=== PATIENT | female | born 1945 | race Caucasian/White ===

== ENCOUNTER → 2016-06-15 | Outpatient (CLI) | payer MEDICARE ==
--- NOTE | 2016-06-15 17:21 | Diagnostic Imaging Report ---
EXAMINATION: PET-CT TECHNIQUE: Serum glucose level at the time of the study is: 107 mg/dL. 12.4 mCi of FDG was administered intravenously followed by obtaining PET images with corresponding noncontrast CT scan images. The CT scan was performed for anatomic correlation and attenuation correction and was not performed according to the diagnostic protocol of the areas covered. The scan was performed from the head to mid thighs. INDICATION: Initial staging for colon cancer. FINDINGS: There is symmetric uptake seen in the brain. In the neck, there is an enlarged heterogenous thyroid gland with retrosternal extension with no significant hypermetabolism suggestive of multinodular goiter. No hypermetabolic mass is seen in the chest. Expected urinary tract excretion is seen. There is slight heterogeneity of uptake in the liver with no focal hypermetabolic mass identified. There is focal area of hypermetabolism projecting over small bowel loops in the central abdomen with no definitive correlating lesion. There is also a significant area of hypermetabolism in the right lower quadrant projecting over the cecum with maximum SUV of 9.3. No convincing mass is visible on the correlating localizer CT however correlation with colonoscopy is recommended. CT scan findings are suggestive of sigmoid resection with anastomosis seen. Small amount of free fluid in the pelvis noted. No osseous hypermetabolic masses identified. IMPRESSION: 1. There is prominent hypermetabolism in the cecum with no convincing CT correlate to suggest a mass. This is favored to be physiologic, although a small mucosal synchronous carcinoma cannot be entirely excluded. Correlate with colonoscopy results. 2. No evidence of liver or other distant metastasis. Dictated by: Dictated on workstation # [id number]
== END ==
LOC: RAD 09:24
PROVIDERS: ATTEND Internal Medicine Hematology & Oncology
DX: C18.7 Malignant neoplasm of sigmoid colon (principal)

== ENCOUNTER 2016-06-17 13:27 | Outpatient (CLI) | payer MEDICARE ==
[~2016-06-17] VITALS: Ht 172.7 cm; Wt 73.0 kg
== END 2016-06-17 14:21 ==
LOC: PREOP 13:27
PROVIDERS: ATTEND Surgery
DX: Z01.818 Encounter for other preprocedural examination (principal); C18.9 Malignant neoplasm of colon, unspecified

== ENCOUNTER 2016-06-24 08:57 | Day surgery (SDC) | payer MEDICARE ==
[~2016-06-24] VITALS: Ht 172.7 cm; Wt 73.0 kg
[2016-06-24] MEDS ORDERED: LIDOCAINE PF 2% 10 ML (XYLOCAINE) AMP ONE (09:17)
[2016-06-24] MEDS ORDERED: proPOfol 200 MG/20 ML (DIPRIVAN) VIAL IV ONE (09:17)
[2016-06-24] MEDS ORDERED: LACTATED RINGERS 1,000 ML IV ONE (09:17)
[2016-06-24] MEDS ORDERED: ONDANSETRON 4 MG/2 ML (SDV) Z0FRAN ONE (09:17)
[2016-06-24] MEDS ORDERED: LIDOCAINE JELLY 2% (XYLOCAINE) 5 ML TUBE ONE (09:17)
[2016-06-24] MEDS ORDERED: DEXAMETHASONE PF 10 MG/ML (DECADRON) VIAL ONE (09:17)
[2016-06-24] MEDS ORDERED: MIDAZOLAM 2 MG/2 ML (VERSED) VIAL ONE (09:18)
[2016-06-24] MEDS ORDERED: fentaNYL INJECTION 100 MCG/2 ML AMP ONE (09:18)
[2016-06-24] MEDS ORDERED: ceFAZolin 1 GM/NS 50 ML IVPB IV ONE ×2 (09:30)
[2016-06-24] MEDS ORDERED: HEParin (CENTRAL IV FLUSH) 500 UNIT/5 ML SYR ONE (09:48)
[2016-06-24] MEDS ORDERED: LIDOCAINE 1% INJ 20 ML (XYLOCAINE) VIAL ONE (09:49)
[2016-06-24] MEDS ORDERED: BUPIVACAINE 0.25% 30 ML (SENSORCAINE) VIAL ONE (09:49)
[2016-06-24] MEDS ORDERED: 0.9% SODIUM CHLORIDE PF INJ 20 ML VIAL ONE (09:49)
[2016-06-24 10:04] VITALS: BP 146/76
--- NOTE | 2016-06-24 10:05 | Progress Note-Pre Operative ---
Pre-Operative Progress Note H&P Reviewed The H&P was reviewed, patient examined and no changes noted. Date H&P Reviewed: Jun 24, 2016 Time H&P Reviewed: 10:05 Pre-Operative Diagnosis: colon cancer MARICHUY GILL DO Jun 24, 2016 10:05 am
--- NOTE | 2016-06-24 10:49 | Progress Note-Post Operative ---
Post-Operative Progess Note Surgeon (s)/Sales And Operations Trainee (s) Surgeon MARICHUY GILL DO Sales And Operations Trainee: 0 Pre-Operative Diagnosis colon cancer Post-Operative Diagnosis same Post-Op Procedure Note Date of Procedure: Jun 24, 2016 Name of Procedure Performed: power por placement right IJ using u/s guidance Description of the Procedure: see note Findings of the Procedure see note Anesthesia Type general Estimated blood loss (mL): minimal Specimen(s) collected/removed 0 MARICHUY GILL DO Jun 24, 2016 10:49 am
--- NOTE | 2016-06-24 10:51 | Discharge Inst-Simple/Standard ---
Discharge Inst-Standard Patient Instructions/Follow Up Plan of Care/Instructions/FU: 2 weeks Harvey Activity as Tolerated: No Discharge Diet: Regular Diet Other Inst to Patient Follow up Appt: Make appointment for 2 week. Instructions: No lifting greater than 10 pounds. No strenuous activity. May shower in 24 hours, no tub bath or soaking. Use incentive spirometer at home as directed. No Smoking Skin/Wound Care: May remove bandages in 48 hours. You have special glue over incisions it will fall off on its own Place ice pack on for 15 min off 30 min and repeat to reduce swelling and discomfort. Symptoms to Report: Appetite Changes, Extremity Discoloration, Numbness/Tingling, Swelling Increased , Bleeding Excessive, Eyesight Changes, Pain Increased, Urine Color Change, Constipation(Persistent), Fever over 101 degree F, Pain/Pressure in chest, Urinating Difficulty, Cough Up/Vomit Blood, Heart Beat Irreg/Pounding, Pain/ Pressure in jaw, Vaginal Bleeding Increase, Cramps in feet or legs, Lightheadedness, Pain/Pressure in shoulder, Diarrhea(Persistent), Memory Changes Suddenly, Questions/Concerns, Weight gain consecutive days, Dizziness/ Fainting, Nausea/Vomiting, Shortness of Breath, Weight gain over 2 pounds If questions or concerns contact your physician Or seek help at emergency department. MARICHUY GILL DO Jun 24, 2016 10:51 am
[2016-06-24] MEDS ORDERED: MEPERIDINE (DEMEROL) INJ 50 MG/ML IVP PRN (11:15)
[2016-06-24] MEDS ORDERED: morphine INJ 10 MG/ML 1ML (SYR OR VIAL) IVP PRN (11:15)
[2016-06-24] MEDS ORDERED: ONDANSETRON 4 MG/2 ML (SDV) Z0FRAN IVP PRN (11:15)
--- NOTE | 2016-06-24 11:16 | Diagnostic Imaging Report ---
Portable upright radiograph of the chest. INDICATION: Postop placement. FINDINGS: Right internal jugular port is placed with the tip at the mid SVC level. There is no pneumothorax. Minimal atelectasis in the lung bases seen. The heart size is slightly enlarged. No effusion or pneumothorax. Mediastinum and velia appear unremarkable. IMPRESSION: Cardiomegaly. Minimal bibasilar atelectasis. Dictated by: Dictated on workstation # [id number]
[2016-06-24 11:50] VITALS: BP 131/61
[2016-06-24 12:30] VITALS: BP 140/71
[2016-06-24 12:50] VITALS: BP 142/69
[2016-06-24 13:00] VITALS: BP 142/69
--- NOTE | 2016-06-24 14:10 | OPERATIVE REPORT ---
PROCEDURE PHYSICIAN: MARICHUY GILL DATE OF PROCEDURE: 06/24/2016 PREOPERATIVE DIAGNOSIS: Colon cancer. POSTOPERATIVE DIAGNOSIS: Colon cancer. PROCEDURE: Power port placement, right internal jugular vein using ultrasound guidance. SURGEON: Harvey. ANESTHESIA: General. ESTIMATED BLOOD LOSS: Minimal. COMPLICATIONS: None. INDICATIONS: The patient is a 70-year-old female recently diagnosed with colon cancer, she has undergone surgical intervention. She needs port placed for chemotherapy. She understands the risks and benefits of procedure and wished to proceed with procedure. Consent was signed on the chart. PROCEDURE: The patient was taken to the operating suite. She was prepped and draped in sterile fashion. A surgical pause was performed. Using ultrasound, the right internal jugular vein was located and using a micro- access kit, the right internal jugular vein was accessed. Dark nonpulsatile blood was withdrawn. The micro- access wire was inserted. The needle was then removed. Fluoroscopy assure proper placement. This was then converted to the normal guidewire by dilating with micro- access dilator. The wire was removed and the normal wire was inserted. Fluoroscopy assured proper placement. The wire was then secured. A local anesthetic was infiltrated in the right neck for tunneling all the way down to the right chest where a pocket was then created. A 15 blade scalpel was used to make a skin incision over the right chest. Cautery was used to dissect down to the pectoral fascia and a pocket was created bluntly. A dilator sheath was then advanced over the wire under fluoroscopy and the dilator and wire were removed. The Groshong catheter was inserted through the sheath and the sheath was then removed. The Groshong wire was removed. The cath was attached to the tunneler and then tunneled to the right chest. The fluoroscopy assured proper length and the catheter was cut to length and secured to the port which was then placed within the pocket. The port was then accessed without difficulty. It withdrew without difficulty and flushed with saline and then heparin without difficulty. The subcutaneous tissues were then reapproximated using 3-0 Vicryl. The skin at the insertion site and of the incision site were then washed and dried and Dermabond was placed over the incision. The Dermabond was dried and sterile bandages applied. The patient tolerated the procedure well without complications and taken to the recovery condition. Chest x-ray is pending. Job ID: [id number] Dictated Date: 06/24/2016 10:55:27 Contracts Manager Date: 06/24/2016 14:02:11 / soo
[2016-06-24] MEDS ORDERED: LACTATED RINGERS 1,000 ML IV PRN (16:26)
--- NOTE | 2016-06-24 18:10 | Diagnostic Imaging Report ---
EXAMINATION: Intraoperative view of the chest. INDICATION: Port placement. FLUOROSCOPY TIME: 18 seconds. IMPRESSION: Provided image demonstrates a right IJ port in place with the tip at the SVC level. Dictated by: Dictated on workstation # [id number]
--- OUTSIDE RECORDS SUMMARY | 2016-07-25 20:55 | XMS REPORT ---
Author Author Raghav Alves [facility] Surgery Address Unknown Phone Unavailable Care Team Providers Care Loom Technician Name Role Phone Raghav Alves Unavailable Unavailable PROBLEMS Unknown Problems ALLERGIES Unknown Allergies SOCIAL HISTORY No smoking Hx information available PLAN OF CARE VITAL SIGNS MEDICATIONS Unknown Medications RESULTS No Results PROCEDURES No Known procedures IMMUNIZATIONS No Known Immunizations
--- OUTSIDE RECORDS SUMMARY | 2016-07-25 20:56 | XMS REPORT | Continuity of Care Document ---
Author Author [facility] Address Unknown Phone Unavailable Allergies Active Description Code Type Severity Reaction Onset Reported/Identified Relationship to Patient Clinical Status Yes No Known Allergies No Known Allergies Drug Allergy Unknown N/A 05/13/2016 Medications Problems Date Dx Coded Attending Type Code Diagnosis Diagnosed By 04/26/2012 382.00 OTITIS MEDIA ACUTE SUPPURATIVE LEFT EAR 04/26/2012 MARIA ESTHER HESS DO 382.00 OTITIS MEDIA ACUTE SUPPURATIVE LEFT EAR 07/02/2014 MARIA ESTHER HESS DO 465.9 UPPER RESPIRATORY INFECTION 05/13/2016 Fawad GRIMES, Jemal Reynolds C18.7 MALIGNANT NEOPLASM OF SIGMOID COLON 05/13/2016 Jemal Celestin MD D50.0 IRON DEFICIENCY ANEMIA SECONDARY TO BLOOD LOSS (CH 05/13/2016 Jemal Celestin MD K56.69 OTHER INTESTINAL OBSTRUCTION 05/13/2016 Jemal Celestin MD R10.9 UNSPECIFIED ABDOMINAL PAIN Procedures Code Description Performed By Performed On [id number] DILATION OF SIGMOID COLON WITH INTRALUMINAL DEVICE Kalin GRIMES, Irineo Hui 05/13/2016 [id number] EXCISION OF SIGMOID COLON, ENDO, DIAGN Irineo Gagnon MD 05/13/2016 [id number] RESECTION OF SIGMOID COLON, PERCUTANEOUS ENDOSCOPI 05/13/2016 Results Test Result Range CBC W/DIFF - 05/13/16 03:20 EOSINOPHIL # 0.1 k/cumm 0.1-0.5 EOSINOPHIL % 1 % 2-4 GRANULOCYTE # 8.5 k/cumm 2.0-9.0 GRANULOCYTE % 84 % 50-75 LYMPHOCYTE # 0.9 k/cumm 1.0-4.0 LYMPHOCYTE % 9 % 20-30 MEAN CELL HGB 21.5 pg 27.0-33.0 MEAN CELL HGB CONCENTRATION 29.2 g/dL 32.0-37.0 MEAN CELL VOLUME 73.5 fl 80.0-100.0 MONOCYTE # 0.7 k/cumm 0.1-1.0 MONOCYTE % 7 % 4-6 RED BLOOD CELL 4.19 m/cumm 4.00-6.00 RED CELL DISTRIBUTION WIDTH 17.8 % 11.0- 15.6 WHITE BLOOD CELL 10.1 k/cumm 5.0-10.0 HEMOGLOBIN 9.0 gm/dL 12.0-16.0 HEMATOCRIT 30.8 % 37.0-47.0 PLATELET COUNT 340 k/cumm 150-400 CHEM/HEM PROFILE-BEDSIDE - 05/13/16 03:20 POTASSIUM 3.6 mmol/L 3.5-5.3 METHOD Bedside ANION GAP 10 mmol/L 10-20 METHOD Bedside GLUCOSE 141 mg/dL 70-99 BLOOD UREA NITROGEN 13 mg/dL 7-20 CREATININE 0.8 mg/dL 0.6-1.0 HEMOGLOBIN 9.5 gm/dL 12.0-16.0 HEMATOCRIT 28.0 % 37.0-47.0 SODIUM 139 mmol/L 135-148 CHLORIDE 112 mmol/L 98-110 CARBON DIOXIDE 21 mmol/L 21-32 CALCIUM IONIZED 4.7 mg/dL 4.5-5.3 HEPATIC FUNCTION PANEL - 05/13/16 03:20 BILI UNCONJUGATED 0.2 mg/dL 0.0-0.7 AST/SGOT 15 Units/L 10-37 ALT/SGPT 16 Units/L < 66 TOTAL PROTEIN 6.8 gm/dL 6.4-8.2 ALBUMIN 3.3 gm/dL 3.4-5.0 BILI TOTAL 0.3 mg/dL 0.0-1.0 ALKALINE PHOSPHATASE TOTAL 80 IU/L 45- 117 BILI CONJUGATED 0.1 mg/dL 0.0-0.3 LIPASE - 05/13/16 03:20 LIPASE 125 Units/L 73-393 AG CARCINOEMBRYONIC - 05/13/16 07:11 AG CARCINOEMBRYONIC 1.0 ng/mL < 2.6 RENAL FUNCTION PANEL - 05/14/16 09:34 POTASSIUM 3.8 mmol/L 3.5-5.3 EST GFR (MDRD) > 60 mL/min > 59 ANION GAP 7 mmol/L 5-15 GLUCOSE 115 mg/dL 70-99 CALCIUM 8.2 mg/dL 8.5-10.1 BLOOD UREA NITROGEN 9 mg/dL 7-20 CREATININE 0.7 mg/dL 0.6-1.0 SODIUM 148 mmol/L 135-148 CHLORIDE 113 mmol/L 98-110 CARBON DIOXIDE 28 mmol/L 21-32 ALBUMIN 2.7 gm/dL 3.4-5.0 PHOSPHORUS 2.3 mg/dL 2.5-4.9 MAGNESIUM - 05/14/16 09:34 MAGNESIUM 2.0 mg/dL 1.8-2.4 CBC - 05/14/16 09:34 COMMENT REVIEWED MEAN CELL HGB 21.6 pg 27.0-33.0 MEAN CELL HGB CONCENTRATION 28.7 g/dL 32.0-37.0 MEAN CELL VOLUME 75.2 fl 80.0-100.0 RED BLOOD CELL 3.47 m/cumm 4.00-6.00 RED CELL DISTRIBUTION WIDTH 17.8 % 11.0- 15.6 WHITE BLOOD CELL 6.3 k/cumm 5.0-10.0 HEMOGLOBIN 7.5 gm/dL 12.0-16.0 HEMATOCRIT 26.1 % 37.0-47.0 PLATELET COUNT 217 k/cumm 150-400 GLUCOSE (POC) - 05/16/16 21:08 GLUCOSE (POC) 85 mg/dL 70-99 CBC - 05/17/16 04:48 MEAN CELL HGB 21.7 pg 27.0-33.0 MEAN CELL HGB CONCENTRATION 29.8 g/dL 32.0-37.0 MEAN CELL VOLUME 72.8 fl 80.0-100.0 RED BLOOD CELL 3.60 m/cumm 4.00-6.00 RED CELL DISTRIBUTION WIDTH 17.2 % 11.0- 15.6 WHITE BLOOD CELL 8.7 k/cumm 5.0-10.0 HEMOGLOBIN 7.8 gm/dL 12.0-16.0 HEMATOCRIT 26.2 % 37.0-47.0 PLATELET COUNT 230 k/cumm 150-400 RENAL FUNCTION PANEL - 05/17/16 04:48 POTASSIUM 3.8 mmol/L 3.5-5.3 EST GFR (MDRD) > 60 mL/min > 59 ANION GAP 7 mmol/L 5-15 EST CrCl (CG) > 60 mL/min > 59 GLUCOSE 120 mg/dL 70-99 CALCIUM 7.8 mg/dL 8.5-10.1 BLOOD UREA NITROGEN 2 mg/dL 7-20 CREATININE 0.6 mg/dL 0.6-1.0 SODIUM 144 mmol/L 135-148 CHLORIDE 112 mmol/L 98-110 CARBON DIOXIDE 25 mmol/L 21-32 ALBUMIN 2.5 gm/dL 3.4-5.0 PHOSPHORUS 1.4 mg/dL 2.5-4.9 MAGNESIUM - 05/17/16 04:48 MAGNESIUM 1.7 mg/dL 1.8-2.4 CBC - 05/18/16 08:03 MEAN CELL HGB 21.4 pg 27.0-33.0 MEAN CELL HGB CONCENTRATION 28.6 g/dL 32.0-37.0 MEAN CELL VOLUME 75.0 fl 80.0-100.0 RED BLOOD CELL 3.36 m/cumm 4.00-6.00 RED CELL DISTRIBUTION WIDTH 17.5 % 11.0- 15.6 WHITE BLOOD CELL 7.9 k/cumm 5.0-10.0 HEMOGLOBIN 7.2 gm/dL 12.0-16.0 HEMATOCRIT 25.2 % 37.0-47.0 PLATELET COUNT 211 k/cumm 150-400 RENAL FUNCTION PANEL - 05/18/16 08:03 POTASSIUM 3.9 mmol/L 3.5-5.3 EST GFR (MDRD) > 60 mL/min > 59 ANION GAP 7 mmol/L 5-15 EST CrCl (CG) > 60 mL/min > 59 GLUCOSE 122 mg/dL 70-99 CALCIUM 7.6 mg/dL 8.5-10.1 BLOOD UREA NITROGEN 6 mg/dL 7-20 CREATININE 0.6 mg/dL 0.6-1.0 SODIUM 144 mmol/L 135-148 CHLORIDE 110 mmol/L 98-110 CARBON DIOXIDE 27 mmol/L 21-32 ALBUMIN 2.2 gm/dL 3.4-5.0 PHOSPHORUS 3.1 mg/dL 2.5-4.9 MAGNESIUM - 05/18/16 08:03 MAGNESIUM 2.3 mg/dL 1.8-2.4 CBC - 05/19/16 04:46 MEAN CELL HGB 21.4 pg 27.0-33.0 MEAN CELL HGB CONCENTRATION 28.5 g/dL 32.0-37.0 MEAN CELL VOLUME 75.1 fl 80.0-100.0 RED BLOOD CELL 3.13 m/cumm 4.00-6.00 RED CELL DISTRIBUTION WIDTH 17.2 % 11.0- 15.6 WHITE BLOOD CELL 5.8 k/cumm 5.0-10.0 HEMOGLOBIN 6.7 gm/dL 12.0-16.0 HEMATOCRIT 23.5 % 37.0-47.0 PLATELET COUNT 182 k/cumm 150-400 RENAL FUNCTION PANEL - 05/19/16 04:46 POTASSIUM 4.1 mmol/L 3.5-5.3 EST GFR (MDRD) > 60 mL/min > 59 ANION GAP 5 mmol/L 5-15 EST CrCl (CG) > 60 mL/min > 59 GLUCOSE 104 mg/dL 70-99 CALCIUM 7.7 mg/dL 8.5-10.1 BLOOD UREA NITROGEN 8 mg/dL 7-20 CREATININE 0.7 mg/dL 0.6-1.0 SODIUM 140 mmol/L 135-148 CHLORIDE 107 mmol/L 98-110 CARBON DIOXIDE 28 mmol/L 21-32 ALBUMIN 2.0 gm/dL 3.4-5.0 PHOSPHORUS 2.7 mg/dL 2.5-4.9 MAGNESIUM - 05/19/16 04:46 MAGNESIUM 2.0 mg/dL 1.8-2.4 CBC - 05/20/16 04:54 MEAN CELL HGB 21.2 pg 27.0-33.0 MEAN CELL HGB CONCENTRATION 28.6 g/dL 32.0-37.0 MEAN CELL VOLUME 73.9 fl 80.0-100.0 RED BLOOD CELL 3.07 m/cumm 4.00-6.00 RED CELL DISTRIBUTION WIDTH 17.0 % 11.0- 15.6 WHITE BLOOD CELL 4.5 k/cumm 5.0-10.0 HEMOGLOBIN 6.5 gm/dL 12.0-16.0 HEMATOCRIT 22.7 % 37.0-47.0 PLATELET COUNT 245 k/cumm 150-400 RENAL FUNCTION PANEL - 05/20/16 04:54 POTASSIUM 4.2 mmol/L 3.5-5.3 EST GFR (MDRD) > 60 mL/min > 59 ANION GAP 6 mmol/L 5-15 EST CrCl (CG) > 60 mL/min > 59 GLUCOSE 98 mg/dL 70-99 CALCIUM 8.1 mg/dL 8.5-10.1 BLOOD UREA NITROGEN 9 mg/dL 7-20 CREATININE 0.7 mg/dL 0.6-1.0 SODIUM 141 mmol/L 135-148 CHLORIDE 108 mmol/L 98-110 CARBON DIOXIDE 27 mmol/L 21-32 ALBUMIN 2.0 gm/dL 3.4-5.0 PHOSPHORUS 3.4 mg/dL 2.5-4.9 MAGNESIUM - 05/20/16 04:54 MAGNESIUM 2.2 mg/dL 1.8-2.4 IRON W/ BINDING CAPACITY - 05/20/16 04:54 IRON SATURATION 4 % SAT 11-46 IRON BINDING CAPACITY, TOTAL 253 mcg/dL 250-450 IRON 11 mcg/dL 35-150 FERRITIN - 05/20/16 04:54 FERRITIN 30 ng/mL 8-252 CBC - 05/21/16 06:01 MEAN CELL HGB 21.1 pg 27.0-33.0 MEAN CELL HGB CONCENTRATION 28.3 g/dL 32.0-37.0 MEAN CELL VOLUME 74.6 fl 80.0-100.0 RED BLOOD CELL 3.31 m/cumm 4.00-6.00 RED CELL DISTRIBUTION WIDTH 17.1 % 11.0- 15.6 WHITE BLOOD CELL 4.1 k/cumm 5.0-10.0 HEMOGLOBIN 7.0 gm/dL 12.0-16.0 HEMATOCRIT 24.7 % 37.0-47.0 PLATELET COUNT 290 k/cumm 150-400 RENAL FUNCTION PANEL - 05/21/16 06:01 POTASSIUM 4.3 mmol/L 3.5-5.3 EST GFR (MDRD) > 60 mL/min > 59 ANION GAP 6 mmol/L 5-15 EST CrCl (CG) > 60 mL/min > 59 GLUCOSE 95 mg/dL 70-99 CALCIUM 8.5 mg/dL 8.5-10.1 BLOOD UREA NITROGEN 10 mg/dL 7-20 CREATININE 0.7 mg/dL 0.6-1.0 SODIUM 144 mmol/L 135-148 CHLORIDE 109 mmol/L 98-110 CARBON DIOXIDE 29 mmol/L 21-32 ALBUMIN 2.1 gm/dL 3.4-5.0 PHOSPHORUS 3.5 mg/dL 2.5-4.9 MAGNESIUM - 05/21/16 06:01 MAGNESIUM 2.1 mg/dL 1.8-2.4 Encounters ACCT No. Visit Date/Time Discharge Status Pt. Type Provider Facility Loc./Unit Complaint [id number] 07/02/2014 13:59:00 07/02/2014 23: 59:59 [facility] Outpatient MARIA ESTHER HESS DO [id number] 04/26/2012 11:07:00 04/26/2012 23: 59:59 [facility] Outpatient
== END 2016-06-24 13:00 | disposition home or self-care (01) ==
LOC: SDC 08:57
PROVIDERS: ATTEND Surgery
DX: C18.7 Malignant neoplasm of sigmoid colon (principal)
CPT/HCPCS: 71010; 87081

== ENCOUNTER 2016-08-13 09:00 | Outpatient (CLI) | payer MEDICARE ==
[~2016-08-13] VITALS: Ht 172.7 cm; Wt 73.0 kg
== END 2016-08-13 09:50 ==
LOC: PREOP 09:00
PROVIDERS: ATTEND Surgery
DX: Z01.818 Encounter for other preprocedural examination (principal); K92.1 Melena

== ENCOUNTER 2016-08-17 06:46 | Day surgery (SDC) | payer MEDICARE ==
[~2016-08-17] VITALS: Ht 172.7 cm; Wt 73.0 kg
[2016-08-17] MEDS ORDERED: NS IV 1000 ML 1,000 ML IV STA (07:27)
[2016-08-17] MEDS ORDERED: MIDAZOLAM 2 MG/2 ML (VERSED) VIAL ONE (07:34)
[2016-08-17] MEDS ORDERED: proPOfol 200 MG/20 ML (DIPRIVAN) VIAL IV ONE (07:35)
[2016-08-17 07:36] VITALS: BP 139/63
--- NOTE | 2016-08-17 08:33 | Progress Note-Post Operative ---
Post-Operative Progess Note Surgeon (s)/Steam Fitter Supervisor Maintenance (s) Surgeon MARICHUY GILL DO Steam Fitter Supervisor Maintenance: na Pre-Operative Diagnosis blood in stools Post-Operative Diagnosis cecal polyp, ascending ulcerative mass Procedure & Operative Findings Date of Procedure 08/17/16 Procedure Performed/Findings colonoscopy with hot bx polypectomy, cold biopsies ulcerative mass with naty inking Anesthesia Type per [facility] Estimated Blood Loss Estimated blood loss (mL): scant Specimens/Packing Specimens Removed cecal polyp, ascending ulcerative mass MARICHUY GILL DO August 17, 2016 8:33 am
[2016-08-17 08:45] VITALS: BP 125/72
[2016-08-17 09:00] VITALS: BP 129/66
--- NOTE | 2016-08-17 09:18 | Discharge Inst-Simple/Standard ---
Discharge Inst-Standard Patient Instructions/Follow Up Plan of Care/Instructions/FU: 1-2 weeks dawood expect some blood if does not stop be re-evaluated at that time. Activity as Tolerated: Yes Discharge Diet: Regular Diet MARICHUY GILL DO August 17, 2016 9:18 am
--- NOTE | 2016-08-17 09:27 | OPERATIVE REPORT ---
DATE OF SERVICE: 08/17/2016 PREOPERATIVE DIAGNOSIS: Blood in stools. POSTOPERATIVE DIAGNOSIS: Cecal polyp and ascending ulcerative mass. PROCEDURE: Colonoscopy with hot biopsy polypectomy and cold biopsies, ulcerative mass with Sara inking. SURGEON: Marichuy Gabriel DO ANESTHESIA: Per MDA. ESTIMATED BLOOD LOSS: Scant. SPECIMENS: Cecal polyp and ascending ulcerative mass. INDICATIONS: The patient is a 71-year-old female with recent history of colon resection for colon cancer. She had a bloody bowel movement and had a PET scan suggestive of possible mass in the right colon. She understands risks and benefits of procedure and wished to proceed with procedure. Consent was signed in chart. PROCEDURE: The patient was taken to the endoscopy suite, placed in left lateral recumbent position. Timeout was performed. Digital rectal exam was performed. There was no palpable polyps, masses or ulcerations. Scope was inserted in the rectum and advanced all way to the cecum with minimal difficulty. A small polyp was in the cecum, for which hot biopsy polypectomy was performed. Scope was then slowly retracted back into the ascending colon where there is a slightly bleeding ulcerative mass present. Biopsies were obtained. This was inked just distal to the mass, 3 mL of Sara ink was placed. Scope was continued slowly retracted back. There were no other polyps, masses or ulcerations within the remainder of the ascending colon, transverse colon and descending colon. Sigmoid colon had been previously removed. The anastomosis appears intact with no issues. Scope was retroflexed in the rectum, noting no other pathology. Scope was returned to its normal position, slowly withdrawn until completely removed. RECOMMENDATIONS: The patient will need to follow up biopsies in approximately one to two weeks. We will discuss further intervention at that time. Job ID: [id number] DocumentID: [id number] Dictated Date: 08/17/2016 08:36:08 Research Program Coordinator Date: 08/17/2016 09:27:22 Dictated By: MARICHUY GABRIEL DO
[2016-08-17 12:51] VITALS: BP 129/66
--- NOTE | 2016-08-19 09:29 | OPERATIVE REPORT ---
DATE OF SERVICE: 08/17/2016 PREOPERATIVE DIAGNOSIS: Free air, ulcerative right colon mass, status post colonoscopy. POSTOPERATIVE DIAGNOSIS: Ascending right colon mass. PROCEDURE: Exploratory laparotomy with right colon resection. SURGEON: Harvey ANESTHESIA: General. ESTIMATED BLOOD LOSS: Minimal. COMPLICATIONS: None. INDICATIONS: The patient is a 71-year-old female with previous history of left sigmoid resection due to a colon mass. She recently has had a bleeding episode and had a PET scan with suspicious lesion in the right colon. The patient was explained risks and benefits of colonoscopy and underwent colonoscopy this morning. On colonoscopy in the ascending colon, an ulcerative mass was found and also a polyp in the cecum. The cecal polyp had hot biopsy polypectomy performed. The ulcerative mass had multiple biopsies obtained. The patient was discharged. She was doing well. She began having severe abdominal pain on the right side, nausea and vomiting and went to the Emergency Department for further evaluation. She had a CT scan demonstrating a small amount of free air, but was having significant pain. Because of the pain, the free air and the need for surgical intervention in any event and she had already undergone a bowel prep, we decided to go ahead and proceed with exploration and right colon resection. Consent was signed and on the chart. The patient understood all risks and benefits and consent was signed. PROCEDURE: The patient was taken to the operating suite. She was prepped and draped in sterile fashion. Surgical pause was performed. A midline incision was made and the abdomen was entered. The colon had some distention from previous colonoscopy. The cecum was located and inspected and brought up into the surgical field and the right colon was inspected. There were no signs of any perforation. The Sara ink tattooing was located in the right colon. There was a palpable mass within the right colon. The colon was continued to be inspected. No obvious perforation was present in the entire portion of the colon. The small bowel had normal appearance. The liver was inspected and palpated, small 1 cm palpable cyst high on the right liver. Stomach had normal appearance and normal feel. The patient did have some adhesions of the small bowel down to the right pelvis and also with the omentum up to the liver. The terminal ileum was then dissected around and a COMFORT-75 blue load was then fired across the terminal ileum. The colon was then mobilized along the white line of [place] with blunt and cautery dissection. Once the tattooing was passed and the colon was mobilized well enough, a portion of the hepatic flexure had to be mobilized as well for the anastomosis to be performed. The LigaSure was then used to dissect the mesentery to the colon. The duodenum was visualized and able to be swept down posteriorly away from the colon. Once the tattooing was passed, the colon was dissected around with a hemostat and a COMFORT-75 stapler was then fired across. Specimen was sent for pathology and was opened on the back table demonstrating the ulcerative mass that was removed. 3-0 silk suture was then used to approximate the small bowel together with the colon for the anastomosis. A COMFORT-75 blue staple load was then fired down the limb of the small bowel and also the colon. Once this was performed, the opening was brought together and a TA 60 blue stapler was then fired to complete the anastomosis. There was a 3-0 silk suture placed for crotch stitch. The mesenteric defect was then closed using 3-0 Vicryl in a running fashion. Copious amounts of irrigation was used to irrigate. Hemostasis had been achieved. The anastomosis was patent. The fascia was then closed using 1-0 looped PDS. The subcutaneous tissues were then slightly mobilized and the wound was then irrigated. The skin was then closed with albaro. The areas were washed and dried and sterile bandage was applied. The patient tolerated procedure well without any complications. She was taken to the recovery room in stable condition. Dr. Gerard assisted with retraction, dissection and closure. Job ID: [id number] DocumentID: [id number] Dictated Date: 08/17/2016 19:12:19 Sap Bi Developer Date: 08/18/2016 03:05:51 Dictated By: DO CARRIE STANTON
== END 2016-08-17 09:30 | disposition home or self-care (01) ==
LOC: ENDO 06:46
PROVIDERS: ATTEND Surgery
DX: D12.0 Benign neoplasm of cecum (principal); C18.7 Malignant neoplasm of sigmoid colon; C77.2 Secondary and unspecified malignant neoplasm of intra-abdominal lymph nodes; D50.9 Iron deficiency anemia, unspecified; Z87.891 Personal history of nicotine dependence
CPT/HCPCS: 88305; 88309

== ENCOUNTER 2016-08-17 09:49 | Inpatient (IN) | payer MEDICARE ==
[~2016-08-17] VITALS: Ht 172.7 cm; Wt 78.1 kg
[2016-08-17] VITALS (12 sets, daily range): BP systolic 96–130; BP diastolic 47–71
[2016-08-17] MEDS ORDERED: fentaNYL INJECTION 100 MCG/2 ML AMP IVP ONE ×2 (10:00→10:15)
[2016-08-17] MEDS ORDERED: ONDANSETRON 4 MG/2 ML (SDV) Z0FRAN ONE ×3 (10:11→15:09)
[2016-08-17] MEDS ORDERED: HYDROmorphone (DILAUDID) 2 MG/ML VIAL IVP STA ×2 (10:11→10:23)
[2016-08-17 10:12] LABS: BASOPHILS % (AUTO) 0 % (0-10); EOSINOPHILS # (AUTO) 0.1 10^3/uL (0.0-0.3); EOSINOPHILS % (AUTO) 3 % (0-10); LYMPHOCYTES # (AUTO) 1.3 X 10^3 (1.0-4.0); LYMPHOCYTES % (AUTO) 32 % (12-44); MEAN CORPUSCULAR HEMOGLOBIN 29 PG (25-34); MEAN CORPUSCULAR HGB CONC 33 G/DL (32-36); MEAN CORPUSCULAR VOLUME 88 FL (80-99); MEAN PLATELET VOLUME 9.1 FL (7.4-10.4); MONOCYTES # (AUTO) 0.5 X 10^3 (0.0-1.0); MONOCYTES % (AUTO) 12 % (0-12); NEUTROPHILS # (AUTO) 2.1 X 10^3 (1.8-7.8); NEUTROPHILS % (AUTO) 53 % (42-75); PLATELET COUNT 92 10^3/uL (130-400); RED CELL DISTRIBUTION WIDTH 21.7 % (10.0-14.5)
[2016-08-17] MEDS ORDERED: NS IV 500 ML 500 ML ONE ×2 (10:13→21:43)
[2016-08-17] MEDS ORDERED: diphenhydrAMINE 50 MG/ML INJ (BENADRYL) IVP ONE (10:15)
[2016-08-17] MEDS ORDERED: ONDANSETRON 4 MG/2 ML (SDV) Z0FRAN IVP ONE (10:15)
[2016-08-17] MEDS ORDERED: NS IV 500 ML 500 ML IV ONE (10:16)
[2016-08-17] MEDS ORDERED: IOHEXOL 350 MG/ML 100 ML (OMNIPAQUE 350) VIAL IV ONE (10:30)
[2016-08-17] MEDS ORDERED: CATHETER FLUSH 10 ML SYR IV PRN ×2 (10:30→19:00)
[2016-08-17] MEDS ORDERED: NS 100 ML (IVPB) BAG IV ONE (10:30)
[2016-08-17 10:34] LABS: ALANINE AMINOTRANSFERASE 26 U/L (0-55); ALBUMIN 3.8 G/DL (3.2-4.5); ANION GAP 10 MMOL/L (5-14); ASPARTATE AMINO TRANSFERASE 36 U/L (5-34); BILIRUBIN,TOTAL 0.5 MG/DL (0.1-1.0); BLOOD UREA NITROGEN 8 MG/DL (7-18); BUN/CREATININE RATIO 10; CALCIUM 9.6 MG/DL (8.5-10.1); CARBON DIOXIDE 21 MMOL/L (21-32); CHLORIDE 112 MMOL/L (98-107); GFR ESTIMATED > 60; GLUCOSE 113 MG/DL (70-105); LIPASE 24 U/L (8-78); SODIUM 143 MMOL/L (135-145); TOTAL PROTEIN 6.4 G/DL (6.4-8.2)
--- NOTE | 2016-08-17 11:55 | ED Abdominal Pain ---
General Chief Complaint: Abdominal/GI Problems Stated Complaint: SEVERE ABD PAIN Nursing Triage Note: TO ED PER W/C FROM CAN[facility]ER [facility] EARLIER TODAY HAD COLONOSCPY. C/O PAIN IN R UPPER QUAD WITH RADIATION TO BACK. Sepsis Screen: No Definite Risk Source of Information: Patient, Other ([facility] staff) Exam Limitations: No Limitations History of Present Illness Time Seen By Provider: 09:51 Initial Comments This 71-year-old woman is brought to the emergency room by staff from the [facility] with extreme abdominal pain. She had a colonoscopy performed this morning with biopsies of an ulcerative mass in the ascending colon. She has a history of colon cancer and recently developed some blood in her stools. She was sent for colonoscopy for this reason. She had recovered well and was presenting to the [facility] for routine labs. She developed intense right upper quadrant pain at that time. She is in significant distress on arrival. She has some associated nausea. Allergies and Home Medications Allergies Coded Allergies: No Known Drug Allergies (Unverified , 06/17/16) Review of Systems Constitutional: no symptoms reported EENTM: No Symptoms Reported Respiratory: No Symptoms Reported Cardiovascular: No Symptoms Reported Gastrointestinal: See HPI Genitourinary: No Symptoms Reported Musculoskeletal: no symptoms reported Skin: no symptoms reported Psychiatric/Neurological: No Symptoms Reported Endocrine: No Symptoms Reported Hematologic/Lymphatic: See HPI Past Fmdftjy-Hrndaz-Varvka Hx Patient Social History Alcohol Use: Denies Use Recreational Drug Use: No Smoking Status: Never a Smoker Type Used: Cigarettes Recent Foreign Travel: No Contact w/Someone Who Travel: No Recent Infectious Disease Expo: No Recent Hopitalizations: No Immunizations Up To Date Date of Influenza Vaccine: Dec 20, 2015 Seasonal Allergies Seasonal Allergies: No Surgeries HX Surgeries: Yes (colon resection, port) Surgeries: Abdominal, Adenoidectomy, Tonsillectomy Respiratory Hx Respiratory Disorders: No Cardiovascular Hx Cardiac Disorders: No Neurological Hx Neurological Disorders: No Reproductive System Hx Reproductive Disorders: No Genitourinary Hx Genitourinary Disorders: No Gastrointestinal Hx Gastrointestinal Disorders: Yes (colon cancer) Musculoskeletal Hx Musculoskeletal Disorders: No Endocrine Hx Endocrine Disorders: No HEENT HX ENT Disorders: No Cancer Hx Cancer: Yes Cancer: Colon Psychosocial Hx Psychiatric Problems: No Integumentary HX Skin/Integumentary Disorder: No Blood Transfusions Hx Blood Disorders: No Physical Exam Vital Signs VS - Last 72 Hours, by Label 08/17/16 08/17/16 10:03 10:32 Temp 97.6 Pulse 121 Resp 22 B/P (MAP) 186/124 Pulse Ox 90 O2 Delivery Nasal Cannula O2 Flow Rate 4.00 Capillary Refill : Less Than 3 Seconds General Appearance: severe distress HEENT: PERRL/EOMI, normal ENT inspection Neck: normal inspection Respiratory: lungs clear, normal breath sounds, no respiratory distress, no accessory muscle use Cardiovascular: regular rate, rhythm, no edema, no murmur Gastrointestinal: normal bowel sounds, soft, tenderness (severe tenderness in the right upper quadrant) Extremities: no pedal edema, other (firmness in the right upper arm where IV contrast extravasated. 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, no motor/sensory deficits, alert, oriented x 3, other (in significant distress) Skin: normal color, warm/dry Progress/Results/Core Measures Results/Orders Lab Results Laboratory Tests Test 08/17/16 10:05 Range/Units White Blood Count 4.0 L 4.3-11.0 10^3/uL Red Blood Count 4.30 L 4.35-5.85 10^6/uL Hemoglobin 12.5 11.5-16.0 G/DL Hematocrit 38 35-52 % Mean Corpuscular Volume 88 80-99 FL Mean Corpuscular Hemoglobin 29 25-34 PG Mean Corpuscular Hemoglobin Concent 33 32-36 G/DL Red Cell Distribution Width 21.7 H 10.0-14.5 % Platelet Count 92 L 130-400 10^3/uL Mean Platelet Volume 9.1 7.4-10.4 FL Neutrophils (%) (Auto) 53 42-75 % Lymphocytes (%) (Auto) 32 12-44 % Monocytes (%) (Auto) 12 0-12 % Eosinophils (%) (Auto) 3 0-10 % Basophils (%) (Auto) 0 0-10 % Neutrophils # (Auto) 2.1 1.8-7.8 X 10^3 Lymphocytes # (Auto) 1.3 1.0-4.0 X 10^3 Monocytes # (Auto) 0.5 0.0-1.0 X 10^3 Eosinophils # (Auto) 0.1 0.0-0.3 10^3/uL Basophils # (Auto) 0.0 0.0-0.1 10^3/uL Sodium Level 143 135-145 MMOL/L Potassium Level 4.0 3.6-5.0 MMOL/L Chloride Level 112 H 98-107 MMOL/L Carbon Dioxide Level 21 21-32 MMOL/L Anion Gap 10 5-14 MMOL/L Blood Urea Nitrogen 8 7-18 MG/DL Creatinine 0.80 0.60-1.30 MG/DL Estimat Glomerular Filtration Rate > 60 BUN/Creatinine Ratio 10 Glucose Level 113 H 70-105 MG/DL Calcium Level 9.6 8.5-10.1 MG/DL Total Bilirubin 0.5 0.1-1.0 MG/DL Aspartate Amino Transf (AST/SGOT) 36 H 5-34 U/L Alanine Aminotransferase (ALT/SGPT) 26 0-55 U/L Alkaline Phosphatase 86 40-136 U/L Total Protein 6.4 6.4-8.2 G/DL Albumin 3.8 3.2-4.5 G/DL Lipase 24 8-78 U/L My Orders Orders - LOGAN ARCHIBALD MD Cbc With Automated Diff (08/17/16 09:52) Comprehensive Metabolic Panel (08/17/16 09:52) Implanted Port: Ok To Use (08/17/16 09:52) Lipase (08/17/16 09:52) Ua Culture If Indicated (08/17/16 09:52) Fentanyl Injection (Sublimaze Injection (08/17/16 10:00) Fentanyl Injection (Sublimaze Injection (08/17/16 10:15) Diphenhydramine Injection (Benadryl Inje (08/17/16 10:15) Hydromorphone Injection (Dilaudid Inject (08/17/16 10:11) Ondansetron Injection (Zofran Injectio (08/17/16 10:15) Ct Abdomen/Pelvis W (08/17/16 10:15) Ns Iv 500 Ml (Sodium Chloride 0.9%) (08/17/16 10:16) Ondansetron Injection (Zofran Injectio (08/17/16 10:11) Ns Iv 500 Ml (Sodium Chloride 0.9%) (08/17/16 10:13) Hydromorphone Injection (Dilaudid Inject (08/17/16 10:23) Iohexol Injection (Omnipaque 350 Mg/Ml 1 (08/17/16 10:30) Sodium Chloride Flush (Catheter Flush Sy (08/17/16 10:30) Ns (Ivpb) (Sodium Chloride 0.9% Ivpb Bag (08/17/16 10:30) O2 (08/17/16 10:30) Piperacillin Sodium/Tazobactam (Zosyn Vi (08/17/16 12:00) Metronidazole 500mg/100ml Ivpb (Flagyl 5 (08/17/16 12:00) Red Cells Leukocytes Reduced (08/17/16 11:55) Type And Screen (08/17/16 11:55) Medications Given in ED Current Medications Medications Dose Ordered Sig/Rashaun Route Start Time Stop Time Status Last Admin Dose Admin Diphenhydramine HCl 25 mg ONCE ONCE IVP 08/17/16 10:15 08/17/16 10:16 DC 08/17/16 10:20 25 MG Fentanyl Citrate 50 mcg ONCE ONCE IVP 08/17/16 10:00 08/17/16 10:01 DC 08/17/16 10:03 50 MCG Fentanyl Citrate 100 mcg ONCE ONCE IVP 08/17/16 10:15 08/17/16 10:16 DC 08/17/16 10:08 100 MCG Iohexol 100 ml ONCE ONCE IV 08/17/16 10:30 08/17/16 10:31 DC 08/17/16 11:09 100 ML Metronidazole 100 ml @ 100 mls/hr ONCE ONCE IV 08/17/16 12:00 08/17/16 13:05 DC 08/17/16 12:16 100 MLS/HR Ondansetron HCl 8 mg ONCE ONCE IVP 08/17/16 10:15 08/17/16 10:16 DC 08/17/16 10:18 8 MG Sodium Chloride 100 ml ONCE ONCE IV 08/17/16 10:30 08/17/16 10:31 DC 08/17/16 11:09 80 ML Sodium Chloride 500 ml @ ud STK-MED ONCE .ROUTE 08/17/16 10:13 08/17/16 10:18 DC 08/17/16 10:22 500 MLS/HR Vital Signs/I&O Vital Sign - Last 12Hours 08/17/16 08/17/16 10:03 10:32 Temp 97.6 Pulse 121 Resp 22 B/P (MAP) 186/124 Pulse Ox 90 O2 Delivery Nasal Cannula O2 Flow Rate 4.00 Blood Pressure Mean: 144 Progress Note #1: Progress Note Patient required multiple doses of narcotics to control her pain. She received a total of 150 g of fentanyl and 2 mg of Dilaudid. Benadryl was given for itching related to narcotics. Zofran was administered for nausea. Once pain was controlled, patient was sent to CT. Bowel perforation was suspected and was confirmed by imaging. Dr. Gabriel was contacted and requested Zosyn and Flagyl be initiated. Dr. Gabriel presented to the emergency room at 11:50 to assess the patient. Plan is to take patient to surgery. Progress Note #2: Progress Note Patient departed for surgery at 13:15. Departure Impression Impression: Primary Impression: Bowel perforation Additional Impressions: Mass of colon History of colon cancer Right upper quadrant pain Nausea Disposition: ADMITTED INPATIENT Condition: Improved Decision to Admit Reason: Admit from ER (General) Decision to Admit/Date: August 17, 2016 Time/Decision to Admit Time: 11:40 Departure-Patient Inst. Referrals: NO,LOCAL PHYSICIAN (PCP/Family) Primary Care Physician LOGAN ARCHIBALD MD August 17, 2016 11:55
[2016-08-17] MEDS ORDERED: metroNIDAZOLE 500MG/100ML IVPB 100 ML IV ONE (12:00)
[2016-08-17] MEDS ORDERED: PIPERACILLIN SODIUM/TAZOBACTAM 4.5 GM in NS (IVPB) 100 ML IV ONE (12:00)
--- NOTE | 2016-08-17 12:01 | Diagnostic Imaging Report ---
PROCEDURE: CT abdomen and pelvis with contrast. TECHNIQUE: Multiple contiguous axial images were obtained through the abdomen and pelvis after administration of intravenous contrast. INDICATION: Colonoscopy with biopsy of ascending colon mass performed earlier same day. History of colon cancer. Comparison: PET/CT from 06/15/2016. FINDINGS: There is dependent atelectasis in lung bases. No pericardial or pleural effusion. Mild cardiomegaly is noted. There is a trace amount of free intraperitoneal air, predominantly located under the right hemidiaphragm. There is a trace amount of perihepatic fluid, which is new since prior examination. Small volume of pelvic ascites has mildly increased since prior examination. There is mild hazy stranding of the pericolonic fat in the right paracolic gutter region, although no discrete perforation site is seen within the colon. No dilated loops of bowel to indicate obstruction. There are surgical changes from partial distal colectomy with colocolonic anastomosis in the pelvis. No evidence of anastomotic stricturing. The appendix is normal. There are a few scattered hemangiomas as well as cysts within the liver. No suspicious enhancing hepatic lesions to suggest metastasis. The spleen, pancreas, adrenals and kidneys are normal. Uterus and ovaries are normal in appearance for patient's age. Urinary bladder is distended without wall thickening. Normal caliber abdominal aorta. No abdominal or pelvic lymphadenopathy. Small hiatus hernia. The distal esophagus is fluid-filled and mildly patulous. No concerning focal osseous lesion. Dependent atelectatic changes are noted in the lung bases. IMPRESSION: 1. Trace free intraperitoneal air is likely from small focus of colonic perforation given recent biopsies. However, no definitive site of perforation is seen. 2. There is trace perihepatic fluid, which is new since PET/CT of 06/15/2016, could relate to the small focus of bowel perforation. The amount of free fluid in the pelvis has mildly increased since prior examination. 3. No evidence of metastatic disease in the abdomen or pelvis. 4. Small hiatus hernia with fluid filling the distal esophagus. Pertinent findings were discussed by Dr. Usman Stinson with Dr. Camargo at 11:50 AM on 08/17/2016. Dictated by: Dictated on workstation # [id number]
[2016-08-17] MEDS ORDERED: ROCURONIUM 50 MG/5 ML (ZEMURON) VIAL IV ONE ×2 (12:45→15:09)
[2016-08-17] MEDS ORDERED: LACTATED RINGERS 1,000 ML IV ONE ×2 (12:45→15:11)
[2016-08-17] MEDS ORDERED: SEVOFLURANE (ULTANE) 15 ML INHAL SOLN ONE ×2 (12:45→15:11)
[2016-08-17] MEDS ORDERED: proPOfol 200 MG/20 ML (DIPRIVAN) VIAL IV ONE (12:45)
[2016-08-17] MEDS ORDERED: LIDOCAINE PF 2% 5 ML (XYLOCAINE) VIAL ONE (12:45)
[2016-08-17] MEDS ORDERED: MIDAZOLAM 2 MG/2 ML (VERSED) VIAL ONE (12:46)
[2016-08-17] MEDS ORDERED: fentaNYL INJECTION 250 MCG/5 ML AMP ONE (12:46)
[2016-08-17] MEDS: LACTATED RINGERS 1,000 ML IV PRN ×2 (13:20→14:50)
[2016-08-17] MEDS ORDERED: PHENYLEPHRINE 100 MCG/ML 10 ML (ANESTHESIA) SYR ONE (14:08)
[2016-08-17] MEDS ORDERED: HYDROmorphone (DILAUDID) 2 MG/ML VIAL ONE (15:09)
[2016-08-17] MEDS ORDERED: morphine INJ 10 MG/ML 1ML (SYR OR VIAL) ONE (15:09)
[2016-08-17] MEDS ORDERED: NEOSTIGMINE (BLOXIVERZ ) 1 MG/1ML 10 ML VIAL ONE (15:09)
[2016-08-17] MEDS ORDERED: fentaNYL INJECTION 100 MCG/2 ML AMP ONE (15:09)
[2016-08-17] MEDS ORDERED: GLYCOPYRROLATE 0.2 MG/ML (ROBINUL) 2 ML VIAL ONE (15:09)
--- NOTE | 2016-08-17 15:36 | Progress Note-Post Operative ---
Post-Operative Progess Note Surgeon (s)/Mapping Analyst (s) Surgeon MARICHUY GILL DO Mapping Analyst: Dr. Gerard Pre-Operative Diagnosis free air, ulcerative right colon mass, s/p colonoscopy Post-Operative Diagnosis ascending right colon mass Procedure & Operative Findings Date of Procedure 08/17/16 Procedure Performed/Findings exploratory laparotomy, right colon resection Anesthesia Type general Estimated Blood Loss Estimated blood loss (mL): minimal Specimens/Packing Specimens Removed right colon MARICHUY GILL DO August 17, 2016 3:36 pm
[2016-08-17] MEDS ORDERED: morphine INJ 10 MG/ML 1ML (SYR OR VIAL) IVP PRN (15:45)
[2016-08-17] MEDS ORDERED: PROMETHAZINE INJ 25 MG/ML (PHENERGAN) AMP IVP PRN (15:45)
[2016-08-17] MEDS: LACTATED RINGERS 1,000 ML IV SCH (17:03)
[2016-08-17] MEDS: morphine INJ 10 MG/ML 1ML (SYR OR VIAL) IV PRN (18:13)
[2016-08-17] MEDS: PIPERACILLIN SODIUM/TAZOBACTAM 4.5 GM in NS (IVPB) 100 ML IV SCH (19:56)
[2016-08-17] MEDS: metroNIDAZOLE 500MG/100ML IVPB 100 ML IV SCH (20:01)
[2016-08-17] MEDS ORDERED: NS IV 500 ML 500 ML IV SCH (22:00)
[2016-08-18] VITALS (24 sets, daily range): BP systolic 90–135; BP diastolic 48–86
[2016-08-18] MEDS: LACTATED RINGERS 1,000 ML IV SCH ×4 (02:12→19:29)
[2016-08-18] MEDS: PIPERACILLIN SODIUM/TAZOBACTAM 4.5 GM in NS (IVPB) 100 ML IV SCH (02:17)
[2016-08-18] MEDS: morphine INJ 10 MG/ML 1ML (SYR OR VIAL) IV PRN ×6 (02:24→23:26)
[2016-08-18] MEDS: metroNIDAZOLE 500MG/100ML IVPB 100 ML IV SCH (04:38)
[2016-08-18] MEDS: KCL 20 MEQ TAB (K-DUR) PO SCH (04:38)
[2016-08-18 05:02] LABS: MEAN PLATELET VOLUME 9.5 FL (7.4-10.4); RED BLOOD COUNT 3.87 10^6/uL (4.35-5.85); RED CELL DISTRIBUTION WIDTH 21.3 % (10.0-14.5); WHITE BLOOD COUNT 9.3 10^3/uL (4.3-11.0)
[2016-08-18 05:20] LABS: ALANINE AMINOTRANSFERASE 24 U/L (0-55); ANION GAP 8 MMOL/L (5-14); ASPARTATE AMINO TRANSFERASE 32 U/L (5-34); BILIRUBIN,TOTAL 0.5 MG/DL (0.1-1.0); BLOOD UREA NITROGEN 7 MG/DL (7-18); BUN/CREATININE RATIO 8; CALCIUM 8.6 MG/DL (8.5-10.1); CARBON DIOXIDE 23 MMOL/L (21-32); CHLORIDE 109 MMOL/L (98-107); CREATININE SERUM 0.84 MG/DL (0.60-1.30); GFR ESTIMATED > 60; GLUCOSE 139 MG/DL (70-105); POTASSIUM 4.5 MMOL/L (3.6-5.0); SODIUM 140 MMOL/L (135-145); TOTAL PROTEIN 5.2 G/DL (6.4-8.2)
[2016-08-18 05:46] LABS: MAGNESIUM 1.8 MG/DL (1.8-2.4); PHOSPHORUS 4.3 MG/DL (2.3-4.7)
[2016-08-18] MEDS: POTASSIUM CL 10MEQ/50ML IVPB 50 ML IV SCH (05:49)
[2016-08-18] MEDS: MAGNESIUM 1 GM/100 ML IVPB 100 ML IV SCH (06:27)
--- NOTE | 2016-08-18 08:03 | Pulmonary Consultation ---
History of Present Illness History of Present Illness Date of Consultation 08/18/16 07:58 Date of Admission History of Present Illness 71yo with hx of colon cancer who is s/p colonoscopy yesterday morning with bx presented to ED from cancer center secondary to severe abdominal pain. She was also very nauseated. No prior hx of episodes like this. Allergies and Home Medications Allergies Coded Allergies: No Known Drug Allergies (Unverified , 06/17/16) Past Tjegcsz-Xhnqcd-Khaigw Hx Patient Social History Alcohol Use: Denies Use Recreational Drug Use: No Smoking Status: Never a Smoker Type Used: Cigarettes Recent Foreign Travel: No Contact w/Someone Who Travel: No Recent Infectious Disease Expo: No Recent Hopitalizations: No Physical Abuse Screen: No Sexual Abuse: No Immunizations Up To Date PED Vaccines UTD: No Date of Influenza Vaccine: Dec 20, 2015 Seasonal Allergies Seasonal Allergies: No Surgeries HX Surgeries: Yes (colon resection, port) Surgeries: Abdominal, Adenoidectomy, Tonsillectomy Respiratory Hx Respiratory Disorders: No Cardiovascular Hx Cardiac Disorders: No Neurological Hx Neurological Disorders: No Reproductive System : No Hx Reproductive Disorders: No Genitourinary Hx Genitourinary Disorders: No Gastrointestinal Hx Gastrointestinal Disorders: Yes (colon cancer) Musculoskeletal Hx Musculoskeletal Disorders: No Endocrine Hx Endocrine Disorders: No HEENT HX ENT Disorders: No Cancer Hx Cancer: Yes Cancer: Colon Psychosocial Hx Psychiatric Problems: No Integumentary HX Skin/Integumentary Disorder: No Blood Transfusions Hx Blood Disorders: No Review of Systems Constitutional: Malaise, Weakness, No: Chills, Fever, Other, Sweats Eyes: No: Conjunctivae inflammation, Eyelid inflammation, Other, Pain, Redness , Vision change ENT: No: Ear discharge, Ear pain, Mouth pain, Mouth swelling, Nose congestion, Nose discharge, Nose pain, Other, Throat pain, Throat swelling Respiratory: No: Cough, Dry, Hemoptysis, Other, Pleuritic Pain, SOB with excertion, Shortness of breath, Sputum, Wheezing, Wheezing Cardiovascular: No: Chest Pain, Edema, Lt Headedness, Orthopnea, Other, Palpitations, Paroxysmal Noc. Dyspnea Gastrointestinal: Abdominal Pain, Hematochezia, Nausea Genitourinary: No Dysuria, No Frequency, No Incontinence, No Hematuria, No Retention, No Other Neurological: Weakness Exam Exam Vital Signs Date Time Temp Pulse Resp B/P (MAP) Pulse Ox O2 Delivery O2 Flow Rate FiO2 08/18/16 07:00 98.5 08/18/16 06:04 60 10 95/48 94 1.50 08/18/16 05:00 99.5 60 14 100/53 95 1.50 08/18/16 04:00 1.50 08/18/16 04:00 69 7 91/51 95 1.50 08/18/16 03:00 63 17 91/60 91 1.50 08/18/16 02:00 70 13 107/60 94 1.50 08/18/16 01:00 64 11 103/53 95 1.50 08/18/16 00:55 64 08/18/16 00:00 66 16 95 1.50 08/18/16 00:00 65 11 96/50 92 1.50 08/18/16 00:00 1.50 08/17/16 23:00 68 12 97/50 94 1.50 08/17/16 22:00 65 10 96/47 92 1.50 08/17/16 21:08 94 1.50 08/17/16 21:00 66 16 99/52 94 1.50 08/17/16 20:00 1.50 08/17/16 20:00 66 16 101/52 95 1.50 08/17/16 19:45 67 08/17/16 19:00 98.9 66 16 104/55 95 1.50 08/17/16 18:00 68 16 120/64 93 1.00 08/17/16 17:45 67 16 127/63 96 1.00 08/17/16 17:30 71 18 121/63 96 1.00 08/17/16 17:15 68 16 127/62 98 1.00 08/17/16 17:00 68 18 127/65 100 1.50 08/17/16 16:45 100 1.50 08/17/16 16:45 66 16 128/63 100 1.50 08/17/16 16:39 97.8 71 16 130/71 100 1.50 08/17/16 13:17 76 18 98 6.00 08/17/16 10:32 90 Nasal Cannula 4.00 08/17/16 10:03 97.6 121 22 186/124 I & O 08/18/16 07:00 Intake Total 4400 ml Output Total 1635 ml Balance 2765 ml General Appearance: No Apparent Distress, WD/WN HEENT: PERRL/EOMI Neck: Full Range of Motion, Normal Inspection Respiratory: No Accessory Muscle Use, No Respiratory Distress, Decreased Breath Sounds Capillary Refill: Less Than 3 Seconds Gastrointestinal: normal bowel sounds, soft, tenderness (severe tenderness in the right upper quadrant) Neurologic/Psychiatric: Alert, Oriented x3 Skin: Normal Color, Warm/Dry Results Lab Laboratory Tests 08/17/16 10:05 08/18/16 04:30 Assessment/Plan Assessment/Plan hx of colon cancer and s/p colonoscopy with bx Peritonitis secondary to colonic perforation from recent bx s/p ex lap with resection -Pain control hypotension -give liter bolus of LR 254 Clinical Quality Measures DVT/VTE Risk/Contraindication: Risk Factor Score Per Nursin RFS Level Per Nursing on Admit: 4+=Very High KRISS DA SILVA DO August 18, 2016 08:03
--- NOTE | 2016-08-18 08:54 | Progress Note ---
Subjective Subjective/Events-last exam Patient resting in room. Family @ bedside. Even respirations. No distress. Patient is alert and oriented x 3. C/O pain to the RLQ but just got some pain medication. Midline incision clean and dry. No drainage. Objective Exam Vital Signs Date Time Temp Pulse Resp B/P (MAP) Pulse Ox O2 Delivery O2 Flow Rate FiO2 08/18/16 07:00 98.5 08/18/16 07:00 58 08/18/16 06:04 60 10 95/48 94 1.50 08/18/16 05:00 99.5 60 14 100/53 95 1.50 08/18/16 04:00 1.50 08/18/16 04:00 69 7 91/51 95 1.50 08/18/16 03:00 63 17 91/60 91 1.50 08/18/16 02:00 70 13 107/60 94 1.50 08/18/16 01:00 64 11 103/53 95 1.50 08/18/16 00:55 64 08/18/16 00:00 66 16 95 1.50 08/18/16 00:00 65 11 96/50 92 1.50 08/18/16 00:00 1.50 08/17/16 23:00 68 12 97/50 94 1.50 08/17/16 22:00 65 10 96/47 92 1.50 08/17/16 21:08 94 1.50 08/17/16 21:00 66 16 99/52 94 1.50 08/17/16 20:00 1.50 08/17/16 20:00 66 16 101/52 95 1.50 08/17/16 19:45 67 08/17/16 19:00 98.9 66 16 104/55 95 1.50 08/17/16 18:00 68 16 120/64 93 1.00 08/17/16 17:45 67 16 127/63 96 1.00 08/17/16 17:30 71 18 121/63 96 1.00 08/17/16 17:15 68 16 127/62 98 1.00 08/17/16 17:00 68 18 127/65 100 1.50 08/17/16 16:45 100 1.50 08/17/16 16:45 66 16 128/63 100 1.50 08/17/16 16:39 97.8 71 16 130/71 100 1.50 08/17/16 13:17 76 18 98 6.00 08/17/16 10:32 90 Nasal Cannula 4.00 08/17/16 10:03 97.6 121 22 186/124 I & O 08/18/16 07:00 Intake Total 4400 ml Output Total 1635 ml Balance 2765 ml Capillary Refill : Less Than 3 Seconds General Appearance: No Apparent Distress, WD/WN HEENT: PERRL/EOMI Neck: Full Range of Motion, Normal Inspection Respiratory: No Accessory Muscle Use, No Respiratory Distress Cardiovascular: Regular Rate, Rhythm Gastrointestinal: soft, tenderness (some tenderness to the right side of her abdomen. ) Neurologic/Psychiatric: Alert, Oriented x3 Skin: Normal Color, Warm/Dry Results Lab Laboratory Tests Test 08/17/16 10:05 08/18/16 04:30 Range/Units White Blood Count 4.0 L 9.3 4.3-11.0 10^3/uL Red Blood Count 4.30 L 3.87 L 4.35-5.85 10^6/uL Hemoglobin 12.5 11.2 L 11.5-16.0 G/DL Hematocrit 38 35 35-52 % Mean Corpuscular Volume 88 90 80-99 FL Mean Corpuscular Hemoglobin 29 29 25-34 PG Mean Corpuscular Hemoglobin Concent 33 32 32-36 G/DL Red Cell Distribution Width 21.7 H 21.3 H 10.0-14.5 % Platelet Count 92 L 96 L 130-400 10^3/uL Mean Platelet Volume 9.1 9.5 7.4-10.4 FL Neutrophils (%) (Auto) 53 42-75 % Lymphocytes (%) (Auto) 32 12-44 % Monocytes (%) (Auto) 12 0-12 % Eosinophils (%) (Auto) 3 0-10 % Basophils (%) (Auto) 0 0-10 % Neutrophils # (Auto) 2.1 1.8-7.8 X 10^3 Lymphocytes # (Auto) 1.3 1.0-4.0 X 10^3 Monocytes # (Auto) 0.5 0.0-1.0 X 10^3 Eosinophils # (Auto) 0.1 0.0-0.3 10^3/uL Basophils # (Auto) 0.0 0.0-0.1 10^3/uL Sodium Level 143 140 135-145 MMOL/L Potassium Level 4.0 4.5 3.6-5.0 MMOL/L Chloride Level 112 H 109 H 98-107 MMOL/L Carbon Dioxide Level 21 23 21-32 MMOL/L Anion Gap 10 8 5-14 MMOL/L Blood Urea Nitrogen 8 7 7-18 MG/DL Creatinine 0.80 0.84 0.60-1.30 MG/DL Estimat Glomerular Filtration Rate > 60 > 60 BUN/Creatinine Ratio 10 8 Glucose Level 113 H 139 H 70-105 MG/DL Calcium Level 9.6 8.6 8.5-10.1 MG/DL Total Bilirubin 0.5 0.5 0.1-1.0 MG/DL Aspartate Amino Transf (AST/SGOT) 36 H 32 5-34 U/L Alanine Aminotransferase (ALT/SGPT) 26 24 0-55 U/L Alkaline Phosphatase 86 62 40-136 U/L Total Protein 6.4 5.2 L 6.4-8.2 G/DL Albumin 3.8 3.0 L 3.2-4.5 G/DL Lipase 24 8-78 U/L Phosphorus Level 4.3 2.3-4.7 MG/DL Magnesium Level 1.8 1.8-2.4 MG/DL Laboratory Tests 08/17/16 10:05: White Blood Count 4.0L, Red Blood Count 4.30L, Hemoglobin 12.5, Hematocrit 38, Mean Corpuscular Volume 88, Mean Corpuscular Hemoglobin 29, Mean Corpuscular Hemoglobin Concent 33, Red Cell Distribution Width 21.7H, Platelet Count 92L, Mean Platelet Volume 9.1, Neutrophils (%) (Auto) 53, Lymphocytes (%) (Auto) 32, Monocytes (%) (Auto) 12, Eosinophils (%) (Auto) 3, Basophils (%) (Auto) 0, Neutrophils # (Auto) 2.1, Lymphocytes # (Auto) 1.3, Monocytes # (Auto) 0.5, Eosinophils # (Auto) 0.1, Basophils # (Auto) 0.0, Sodium Level 143, Potassium Level 4.0, Chloride Level 112H, Carbon Dioxide Level 21, Anion Gap 10, Blood Urea Nitrogen 8, Creatinine 0.80, Estimat Glomerular Filtration Rate > 60, BUN/ Creatinine Ratio 10, Glucose Level 113H, Calcium Level 9.6, Total Bilirubin 0.5 , Aspartate Amino Transf (AST/SGOT) 36H, Alanine Aminotransferase (ALT/SGPT) 26 , Alkaline Phosphatase 86, Total Protein 6.4, Albumin 3.8, Lipase 24 08/18/16 04:30: White Blood Count 9.3, Red Blood Count 3.87L, Hemoglobin 11.2L, Hematocrit 35, Mean Corpuscular Volume 90, Mean Corpuscular Hemoglobin 29, Mean Corpuscular Hemoglobin Concent 32, Red Cell Distribution Width 21.3H, Platelet Count 96L, Mean Platelet Volume 9.5, Sodium Level 140, Potassium Level 4.5, Chloride Level 109H, Carbon Dioxide Level 23, Anion Gap 8, Blood Urea Nitrogen 7, Creatinine 0.84, Estimat Glomerular Filtration Rate > 60, BUN/Creatinine Ratio 8, Glucose Level 139H, Calcium Level 8.6, Total Bilirubin 0.5, Aspartate Amino Transf (AST/ SGOT) 32, Alanine Aminotransferase (ALT/SGPT) 24, Alkaline Phosphatase 62, Total Protein 5.2L, Albumin 3.0L, Phosphorus Level 4.3, Magnesium Level 1.8 Microbiology 08/17/16 Gram Stain - Final, Resulted 08/17/16 Anaerobic Culture, Resulted Pending 08/17/16 Surgical Culture - Preliminary, Resulted No growth Assessment/Plan Assessment/Plan Assessment/Plan S/P Exploratory Laparotomy right colon resection. R sided Abdominal pain HX Colon Ca Pain control. PT to evaluate and treat. WE will continue to monitor labs and vital signs. May start ICE Chips and advance to sips of clears. Will discuss patient with Dr. Gabriel. Harvey- Pain controlled, but some on right side. No n/v fever sweats chills shortness of breath or chest pain. scd's and starr. Blood pressure has been a little low. general laying in bed heart reg lungs nonlabored abdomen incision c/d/i incisional tenderness ext nontender normal mood affect alert and oriented assessment as above start sips of clears dc starr continue to monitor pt Clinical Quality Measures DVT/VTE Risk/Contraindication: Risk Factor Score Per Nursin RFS Level Per Nursing on Admit: 4+=Very High EMIGDIO KING APRN August 18, 2016 08:54 MARICHUY GABRIEL DO August 18, 2016 17:13
[2016-08-18] MEDS ORDERED: LACTATED RINGERS 1,000 ML IV ONE (09:00)
--- NOTE | 2016-08-18 11:18 | Diagnostic Imaging Report ---
Portable upright radiograph of the chest. INDICATION: ICU care. COMPARISON: 06/24/2016. FINDINGS: The heart size is slightly enlarged. There are background COPD changes with slightly prominent interstitial markings likely related to scarring. No effusion or pneumothorax. Free air in the abdomen is surgery performed yesterday. Infusion port is again seen without change. IMPRESSION: COPD. Cardiomegaly. Pneumoperitoneum from abdominal surgery yesterday. Dictated by: Dictated on workstation # [id number]
--- NOTE | 2016-08-18 13:43 | Anesthesia-General Post-Op ---
General Patient Condition Mental Status/LOC: Same as Preop Cardiovascular: Satisfactory Nausea/Vomiting: Absent Respiratory: Satisfactory Pain: Controlled Complications: Absent Post Op Complications Complications None Follow Up Care/Instructions Patient Instructions None needed. Anesthesia/Patient Condition Patient Condition Patient is doing well, no complaints, stable vital signs, no apparent adverse anesthesia problems. No complications reported per nursing. ELIUD BRONSON CRNA August 18, 2016 13:43
--- NOTE | 2016-08-18 15:24 | Physical Therapy Evaluation ---
PT Evaluation-General Medical Diagnosis Admission Date August 18, 2016 at 08:18 Medical Diagnosis: s/p exploratory laparotomy, right colon resection Onset Date: August 17, 2016 Therapy Diagnosis Therapy Diagnosis: impaired mobility, strength, endurance Height/Weight Height (Feet): 5 Height (Inches): 8.00 Weight (Pounds): 170 Weight (Ounces): 4.0 Precautions Precautions/Isolations: Standard Precautions Referral Physician: Valery Ann APRN Reason for Referral: Evaluation/Treatment Medical History Additional Medical History hx of colon CA, right side abdominal pain Current History went to ER from the cancer center with severe abdominal pain and nausea Social History Home: Single Level Current Living Status: Alone Entry Into Home: Ramp Patient states she has family close that can help her. Prior/Core FIM Prior Level of Function Functional [place] Measure 0=Not Assessed/NA 4=Minimal Assistance 1=Total Assistance 5=Supervision or Setup 2=Maximal Assistance 6=Modified [place] 3=Moderate Assistance 7=Complete [place] Bed Mobility: 7 Transfers (B,C,W/C) (FIM): 7 Gait: 7 PT Evaluation-Current Subjective Patient in bed pre tx, agrees to PT, very drowsy, has 8/10 pain in her abdomen Pt/Family Goals to be independent at home Objective Patient Orientation: Person, Place, Situation Attachments: Central Line, SCD's, Oxygen, Moody Catheter, IV ROM/Strength ROM Lower Extremities WNL Strenght Lower Extremities 4/5 gross bilateral lower extremities Neuromuscular (Tone, Coordination, Reflexes) NT Sensory Vision: Functional Hearing: Functional Sensation Right Lower Extremit: Intact Sensation Left Lower Extremity: Intact Transfers Functional [place] Measure 0=Not Assessed/NA 4=Minimal Assistance 1=Total Assistance 5=Supervision or Setup 2=Maximal Assistance 6=Modified [place] 3=Moderate Assistance 7=Complete [place] Transfers (B, C, W/C) (FIM): 2 Scootin Rollin Supine to/from Sit: 2 Sit to/from Stand: 4 Patient was able to sit at the edge of the bed with max assist due to abdominal pain, she was a little dizzy at first and sats were normal, after a couple of minutes her dizziness stopped and she stood for about 2 minutes before she started desating and needed to lay back down. Balance Sitting Static: Fair Sitting Dynamic: Fair Standing Static: Fair Standing Dynamic: Fair Assessment/Needs Patient has impaired mobility, strength, endurance post colon resection. Rehab Potential: Fair PT Photographer'S Model Goals Usp Goals PT Photographer'S Model Goals Time Frame: Aug 25, 2016 Transfers (B,C,W/C) (FIM): 4 Gait (FIM): 1 Distance: 20' Gait Level of Assist: 4 Gait Assistive Device: FWW PT Plan Problem List Problem List: Activity Tolerance, Functional Strength, Safety, Balance, Gait, Transfer, Bed Mobility Treatment/Plan Treatment Plan: Continue Plan of Care Treatment Plan: Bed Mobility, Education, Functional Activity Gerry, Functional Strength, Gait, Safety, Therapeutic Exercise, Transfers Treatment Duration: Aug 25, 2016 # of days/week 5-6 Visits Per Week: 10-11 Minutes/Day (M-F): 15-30 Minutes/Day (Sat/[place]): 15-30 Pt/Family Agrees w/Plan: Yes Safety Risks/Education Patient Education: Transfer Techniques, Correct Positioning, Safety Issues Teaching Recipient: Patient Teaching Methods: Demonstration, Discussion Response to Teaching: Reinforcement Needed Discharge Recommendations Plan Patient will perform bed mobility and transfer training, balance and endurance training, functional strengthening, gait training, stair training, and education , to improve functional mobility and independence at home. Therapy D/C Recommendations: Acute Rehab, Home w/ Family Support Time/GCodes Time In: 1505 Time Out: 1520 Total Billed Treatment Time: 15 Total Billed Treatment 1 visit JORDYN ORTIZ PT August 18, 2016 15:24
[2016-08-18] MEDS ORDERED: ONDANSETRON 4 MG/2 ML (SDV) Z0FRAN ONE (20:54)
[2016-08-18] MEDS: ONDANSETRON 4 MG/2 ML (SDV) Z0FRAN IVP PRN (21:01)
[2016-08-19] VITALS (22 sets, daily range): BP systolic 89–156; BP diastolic 48–81
[2016-08-19] MEDS ORDERED: NS IV 500 ML 500 ML ONE (02:36)
[2016-08-19] MEDS: ONDANSETRON 4 MG/2 ML (SDV) Z0FRAN IVP PRN ×4 (03:21→17:40)
[2016-08-19] MEDS: morphine INJ 10 MG/ML 1ML (SYR OR VIAL) IV PRN ×4 (03:22→17:40)
[2016-08-19] MEDS: LACTATED RINGERS 1,000 ML IV SCH ×3 (04:43→22:58)
[2016-08-19 05:02] LABS: ANION GAP 7 MMOL/L (5-14); BLOOD UREA NITROGEN 6 MG/DL (7-18); BUN/CREATININE RATIO 9; CALCIUM 8.6 MG/DL (8.5-10.1); CARBON DIOXIDE 26 MMOL/L (21-32); CHLORIDE 106 MMOL/L (98-107); CREATININE SERUM 0.69 MG/DL (0.60-1.30); GFR ESTIMATED > 60; GLUCOSE 128 MG/DL (70-105); MAGNESIUM 1.7 MG/DL (1.8-2.4); PHOSPHORUS 2.3 MG/DL (2.3-4.7); POTASSIUM 4.2 MMOL/L (3.6-5.0); SODIUM 139 MMOL/L (135-145)
[2016-08-19 05:11] LABS: BASOPHILS % (AUTO) 0 % (0-10); EOSINOPHILS % (AUTO) 0 % (0-10); LYMPHOCYTES # (AUTO) 0.4 X 10^3 (1.0-4.0); LYMPHOCYTES % (AUTO) 7 % (12-44); MEAN CORPUSCULAR HEMOGLOBIN 29 PG (25-34); MEAN CORPUSCULAR HGB CONC 32 G/DL (32-36); MEAN CORPUSCULAR VOLUME 92 FL (80-99); MEAN PLATELET VOLUME 9.3 FL (7.4-10.4); MONOCYTES # (AUTO) 0.8 X 10^3 (0.0-1.0); MONOCYTES % (AUTO) 14 % (0-12); NEUTROPHILS # (AUTO) 4.4 X 10^3 (1.8-7.8); NEUTROPHILS % (AUTO) 78 % (42-75); PLATELET COUNT 94 10^3/uL (130-400); RED BLOOD COUNT 3.77 10^6/uL (4.35-5.85); RED CELL DISTRIBUTION WIDTH 20.8 % (10.0-14.5); WHITE BLOOD COUNT 5.6 10^3/uL (4.3-11.0)
[2016-08-19] MEDS: KCL 20 MEQ TAB (K-DUR) PO SCH (05:55)
[2016-08-19] MEDS: MAGNESIUM 1 GM/100 ML IVPB 100 ML IV SCH ×3 (05:55→07:49)
[2016-08-19] MEDS: POTASSIUM CL 10MEQ/50ML IVPB 50 ML IV SCH (05:55)
--- NOTE | 2016-08-19 07:21 | Diagnostic Imaging Report ---
INDICATION: Dyspnea. Postop. Shortness of air. COMPARISON: 08/18/2016 FINDINGS: Single frontal radiographic view of the chest was obtained and demonstrate stable cardiac silhouette and pulmonary vasculature. Right internal jugular Port-A-Cath is again identified with tip in the SVC. Lungs remain clear. There is no large effusion or pneumothorax. Pneumoperitoneum on the right is again noted. Bony structures show no gross acute abnormalities. IMPRESSION: 1. Stable exam of the chest. 2. Persistent pneumoperitoneum. Correlation with recent abdominal surgery is recommended. Dictated by: Dictated on workstation # [id number]
--- NOTE | 2016-08-19 08:52 | Progress Note ---
Subjective Subjective/Events-last exam Patient resting in bed. Not easily arousable due to just receiving morphine IVP. She is also nauseated from morphine and just vomited. Labs are normal. Midline incision intact. No dehiscence is noted. Objective Exam Vital Signs Date Time Temp Pulse Resp B/P (MAP) Pulse Ox O2 Delivery O2 Flow Rate FiO2 08/19/16 07:04 95 1.50 08/19/16 06:00 91 22 117/65 95 1.50 08/19/16 05:00 74 17 115/80 94 1.50 08/19/16 04:00 82 23 99/62 92 1.50 08/19/16 04:00 96 1.50 08/19/16 03:00 73 15 103/57 95 1.50 08/19/16 02:00 73 19 89/48 92 1.50 08/19/16 01:30 74 10 124/57 96 1.50 08/19/16 01:00 69 08/19/16 00:00 96 1.50 08/19/16 00:00 98.8 08/18/16 22:40 1.50 08/18/16 22:00 70 11 125/82 90 1.50 08/18/16 21:00 85 14 135/56 92 1.50 08/18/16 20:00 72 17 134/60 90 1.50 08/18/16 20:00 96 1.50 08/18/16 19:48 99.8 66 12 126/61 96 1.50 08/18/16 19:00 67 8 126/61 92 1.50 08/18/16 19:00 72 08/18/16 18:00 70 11 124/66 92 1.50 08/18/16 17:00 75 6 122/86 90 1.50 08/18/16 16:00 1.50 08/18/16 16:00 80 8 127/62 92 1.50 08/18/16 16:00 100.0 1.50 08/18/16 15:00 76 7 122/60 95 1.50 08/18/16 14:00 65 12 105/55 97 1.50 08/18/16 13:00 55 8 105/55 100 1.50 08/18/16 13:00 65 08/18/16 12:00 1.50 08/18/16 12:00 98.7 65 10 112/57 96 1.50 08/18/16 12:00 1.50 08/18/16 11:00 61 6 101/53 96 1.50 08/18/16 10:00 56 11 102/54 98 1.50 08/18/16 09:00 60 95/53 98 1.50 I & O 08/19/16 07:00 Intake Total 4800 ml Output Total 2178 ml Balance 2622 ml Capillary Refill : Less Than 3 Seconds General Appearance: No Apparent Distress, WD/WN HEENT: PERRL/EOMI Neck: Full Range of Motion, Normal Inspection Respiratory: No Accessory Muscle Use, No Respiratory Distress Cardiovascular: Regular Rate, Rhythm Gastrointestinal: normal bowel sounds, soft Extremity: No Calf Tenderness, No Pedal Edema Neurologic/Psychiatric: Other (patient just recieved some morphine. Able to be aroused but does not stay aroused. ) Skin: Normal Color, Warm/Dry, Other (midline incision I/C/D.) Results Lab Laboratory Tests Test 08/17/16 10:05 08/18/16 04:30 08/19/16 04:30 Range/Units White Blood Count 4.0 L 9.3 5.6 4.3-11.0 10^3/uL Red Blood Count 4.30 L 3.87 L 3.77 L 4.35-5.85 10^6/uL Hemoglobin 12.5 11.2 L 10.9 L 11.5-16.0 G/DL Hematocrit 38 35 35 35-52 % Mean Corpuscular Volume 88 90 92 80-99 FL Mean Corpuscular Hemoglobin 29 29 29 25-34 PG Mean Corpuscular Hemoglobin Concent 33 32 32 32-36 G/DL Red Cell Distribution Width 21.7 H 21.3 H 20.8 H 10.0-14.5 % Platelet Count 92 L 96 L 94 L 130-400 10^3/uL Mean Platelet Volume 9.1 9.5 9.3 7.4-10.4 FL Neutrophils (%) (Auto) 53 78 H 42-75 % Lymphocytes (%) (Auto) 32 7 L 12-44 % Monocytes (%) (Auto) 12 14 H 0-12 % Eosinophils (%) (Auto) 3 0 0-10 % Basophils (%) (Auto) 0 0 0-10 % Neutrophils # (Auto) 2.1 4.4 1.8-7.8 X 10^3 Lymphocytes # (Auto) 1.3 0.4 L 1.0-4.0 X 10^3 Monocytes # (Auto) 0.5 0.8 0.0-1.0 X 10^3 Eosinophils # (Auto) 0.1 0.0 0.0-0.3 10^3/uL Basophils # (Auto) 0.0 0.0 0.0-0.1 10^3/uL Sodium Level 143 140 139 135-145 MMOL/L Potassium Level 4.0 4.5 4.2 3.6-5.0 MMOL/L Chloride Level 112 H 109 H 106 98-107 MMOL/L Carbon Dioxide Level 21 23 26 21-32 MMOL/L Anion Gap 10 8 7 5-14 MMOL/L Blood Urea Nitrogen 8 7 6 L 7-18 MG/DL Creatinine 0.80 0.84 0.69 0.60-1.30 MG/DL Estimat Glomerular Filtration Rate > 60 > 60 > 60 BUN/Creatinine Ratio 10 8 9 Glucose Level 113 H 139 H 128 H 70-105 MG/DL Calcium Level 9.6 8.6 8.6 8.5-10.1 MG/DL Total Bilirubin 0.5 0.5 0.1-1.0 MG/DL Aspartate Amino Transf (AST/SGOT) 36 H 32 5-34 U/L Alanine Aminotransferase (ALT/SGPT) 26 24 0-55 U/L Alkaline Phosphatase 86 62 40-136 U/L Total Protein 6.4 5.2 L 6.4-8.2 G/DL Albumin 3.8 3.0 L 3.2-4.5 G/DL Lipase 24 8-78 U/L Phosphorus Level 4.3 2.3 2.3-4.7 MG/DL Magnesium Level 1.8 1.7 L 1.8-2.4 MG/DL Laboratory Tests 08/19/16 04:30: White Blood Count 5.6, Red Blood Count 3.77L, Hemoglobin 10.9L, Hematocrit 35, Mean Corpuscular Volume 92, Mean Corpuscular Hemoglobin 29, Mean Corpuscular Hemoglobin Concent 32, Red Cell Distribution Width 20.8H, Platelet Count 94L, Mean Platelet Volume 9.3, Neutrophils (%) (Auto) 78H, Lymphocytes (%) (Auto) 7L , Monocytes (%) (Auto) 14H, Eosinophils (%) (Auto) 0, Basophils (%) (Auto) 0, Neutrophils # (Auto) 4.4, Lymphocytes # (Auto) 0.4L, Monocytes # (Auto) 0.8, Eosinophils # (Auto) 0.0, Basophils # (Auto) 0.0, Sodium Level 139, Potassium Level 4.2, Chloride Level 106, Carbon Dioxide Level 26, Anion Gap 7, Blood Urea Nitrogen 6L, Creatinine 0.69, Estimat Glomerular Filtration Rate > 60, BUN/ Creatinine Ratio 9, Glucose Level 128H, Calcium Level 8.6, Phosphorus Level 2.3 , Magnesium Level 1.7L Microbiology 08/17/16 Gram Stain - Final, Resulted 08/17/16 Anaerobic Culture, Resulted Pending 08/17/16 Surgical Culture - Preliminary, Resulted No growth Assessment/Plan Assessment/Plan Assessment/Plan S/P Exploratory Laparotomy right colon resection for ulcerated mass. R sided Abdominal pain HX Colon Ca Pain control. PT and IS. WE will continue to monitor labs and vital signs. Will discuss patient with Dr. Gill about changing pain medication. Patient unable to void after starr was d/isra. Starr was inserted last [id number] out put from last night. (0.30ml/kg). Will continue to monitor Harvey- Patient unable to urinate after Starr removed yesterday so it had to be reinserted. Patient having some nausea and some small emesis this am. Patient reports this after pain medication. Patient no flatus or bm. No fever. Using incentive spirometer some. genera laying in bed heart regular lungs nonlabored abdomen soft, incisional tenderness no erythema or drainage ext nontender assessment as above Starr for urinary retention scd's dvt prophylaxis PT nausea and emesis zofran pepcid for gi prophylaxis incentive spirometer Clinical Quality Measures DVT/VTE Risk/Contraindication: Risk Factor Score Per Nursin RFS Level Per Nursing on Admit: 4+=Very High EMIGDIO KING APRN Aug 19, 2016 08:52 MARICHUY GILL DO Aug 19, 2016 14:46
--- NOTE | 2016-08-19 10:51 | Physical Therapy Daily Note ---
PT Daily Note-Current Subjective Patient is currently vomiting, however, agrees to PT. Pain Numeric Pain Scale: 8 Location Body Site: Head Pain Description: Pressure Comment: c/o CAVAZOS Mental Status Patient Orientation: Normal For Age Attachments: SCD's, Oxygen, Moody Catheter, IV Transfers Functional [place] Measure 0=Not Assessed/NA 4=Minimal Assistance 1=Total Assistance 5=Supervision or Setup 2=Maximal Assistance 6=Modified [place] 3=Moderate Assistance 7=Complete IndependenceIRFPAI Quality Coding Scale 6 Independent with activity with or without an assistive device 5 Patient requires set up or clean up by helper. Patient completes activity by themselves 4 Supervision or touching assist (CGA). [place] provide cues , steadying assist 3 The helper provides less than half the effort to complete the activity 2 The helper provides more than half the effort to complete the activity 1 Dependent. The helper does all the effort to complete an activity 7 Patient refused to complete or attempt activity 9 The patient did not perform the activity before the current illness or injury 88 Not attempted due to Medical conditions or safety concerns Transfers (B, C, W/C) (FIM): 5 Scootin Rollin Supine to/from Sit: 5 Sit to/from Stand: 4 Bed to/from Chair: 4 PIPE AND TEST SUPERVISOR with sit to stand and transfer to chair (5') Gait Training Gait (FIM): 1 Distance (FIM): 1=up to 49 ft Distance: 5' Gait Level of Assist: 4 Gait Persons Needed: 1 Gait Assistive Device: None unsteady Exercises Seated Therapy Exercises: Ankle pumps, Long arc quads Seated Reps: 10 Assessment Patient did desat. during treatment and required recovery period to increase SAO2 to safe level. RN in room after treatment. Patient is up in recliner with needs met. PT Group Home Goals Aviation Tactical Readiness Officer Goals PT Aviation Tactical Readiness Officer Goals Time Frame: Aug 25, 2016 Transfers (B,C,W/C) (FIM): 4 Gait (FIM): 1 Distance: 20' Gait Level of Assist: 4 Gait Assistive Device: FWW PT Plan Treatment/Plan Treatment Plan: Continue Plan of Care Treatment Plan: Bed Mobility, Education, Functional Activity Gerry, Functional Strength, Gait, Safety, Therapeutic Exercise, Transfers Treatment Duration: Aug 25, 2016 Visits Per Week: 10-11 Minutes/Day (M-F): 15-30 Minutes/Day (Sat/[place]): 15-30 Time/GCodes Time In: 1016 Time Out: 1039 Total Billed Treatment Time: 23 Total Billed Treatment 1 visit FA x 2 23 min SHANTELL BURGESS PT Aug 19, 2016 10:51
--- NOTE | 2016-08-19 14:41 | Physical Therapy Daily Note ---
PT Daily Note-Current Subjective Pt is sitting in recliner upon arrival. Pt reports wanting to go back to bed to rest. Pt also reports still feeling nauseated. Mental Status Patient Orientation: Person, Place, Situation Attachments: SCD's, Oxygen, Moody Catheter, IV Transfers Functional [place] Measure 0=Not Assessed/NA 4=Minimal Assistance 1=Total Assistance 5=Supervision or Setup 2=Maximal Assistance 6=Modified [place] 3=Moderate Assistance 7=Complete IndependenceIRFPAI Quality Coding Scale 6 Independent with activity with or without an assistive device 5 Patient requires set up or clean up by helper. Patient completes activity by themselves 4 Supervision or touching assist (CGA). [place] provide cues , steadying assist 3 The helper provides less than half the effort to complete the activity 2 The helper provides more than half the effort to complete the activity 1 Dependent. The helper does all the effort to complete an activity 7 Patient refused to complete or attempt activity 9 The patient did not perform the activity before the current illness or injury 88 Not attempted due to Medical conditions or safety concerns Scootin Supine to/from Sit: 5 Sit to/from Stand: 4 Bed to/from Chair: 4 Weight Bearing Weight Bearing Restriction: Full Weight Bearing Location Restriction: LE Bilateral Treatments Pt transfers from sitting in recliner to stand to SPT to lay Supine in bed. Pt needed assistance to manage cords and lines for attachments. Pt rests in bed with puke pierce and all needs met at end of tx. Assessment Current Status: Fair Progress Pt is nauseated today and this hampers how much pt is able to complete. PT Group Home Goals Group Home Goals PT Line Up Machine Operator Goals Time Frame: Aug 25, 2016 Transfers (B,C,W/C) (FIM): 4 Gait (FIM): 1 Distance: 20' Gait Level of Assist: 4 Gait Assistive Device: FWW PT Plan Problem List Problem List: Activity Tolerance, Functional Strength, Safety, Balance, Gait, Transfer Treatment/Plan Treatment Plan: Continue Plan of Care Treatment Plan: Bed Mobility, Education, Functional Activity Gerry, Functional Strength, Gait, Safety, Therapeutic Exercise, Transfers Treatment Duration: Aug 25, 2016 Visits Per Week: 10-11 Minutes/Day (M-F): 15-30 Minutes/Day (Sat/[place]): 15-30 Safety Risks/Education Patient Education: Gait Training, Transfer Techniques, Correct Positioning, Safety Issues Teaching Recipient: Patient Teaching Methods: Discussion Response to Teaching: Verbalize Understanding Time/GCodes Time In: 1320 Time Out: 1335 Total Billed Treatment Time: 15 Total Billed Treatment visit, FA (15m) LENNOX DYER LEAN SPECIALIST Aug 19, 2016 14:41
[2016-08-19] MEDS ORDERED: PROMETHAZINE INJ 25 MG/ML (PHENERGAN) AMP IVP PRN (18:00)
[2016-08-19] MEDS: fentaNYL INJECTION 100 MCG/2 ML AMP IVP PRN (20:26)
[2016-08-20] VITALS (14 sets, daily range): BP systolic 133–163; BP diastolic 67–83
[2016-08-20] MEDS: fentaNYL INJECTION 100 MCG/2 ML AMP IVP PRN ×5 (01:40→11:35)
[2016-08-20 04:25] LABS: BASOPHILS % (AUTO) 0 % (0-10); EOSINOPHILS % (AUTO) 1 % (0-10); LYMPHOCYTES # (AUTO) 0.5 X 10^3 (1.0-4.0); LYMPHOCYTES % (AUTO) 11 % (12-44); MEAN CORPUSCULAR HEMOGLOBIN 29 PG (25-34); MEAN CORPUSCULAR HGB CONC 33 G/DL (32-36); MEAN CORPUSCULAR VOLUME 89 FL (80-99); MEAN PLATELET VOLUME 9.9 FL (7.4-10.4); MONOCYTES # (AUTO) 0.7 X 10^3 (0.0-1.0); MONOCYTES % (AUTO) 15 % (0-12); NEUTROPHILS # (AUTO) 3.2 X 10^3 (1.8-7.8); NEUTROPHILS % (AUTO) 73 % (42-75); PLATELET COUNT 103 10^3/uL (130-400); RED BLOOD COUNT 3.83 10^6/uL (4.35-5.85); RED CELL DISTRIBUTION WIDTH 19.3 % (10.0-14.5); WHITE BLOOD COUNT 4.5 10^3/uL (4.3-11.0)
[2016-08-20 04:41] LABS: ANION GAP 8 MMOL/L (5-14); BLOOD UREA NITROGEN 5 MG/DL (7-18); BUN/CREATININE RATIO 8; CALCIUM 8.9 MG/DL (8.5-10.1); CARBON DIOXIDE 28 MMOL/L (21-32); CHLORIDE 104 MMOL/L (98-107); CREATININE SERUM 0.65 MG/DL (0.60-1.30); GFR ESTIMATED > 60; GLUCOSE 106 MG/DL (70-105); MAGNESIUM 1.9 MG/DL (1.8-2.4); PHOSPHORUS 1.6 MG/DL (2.3-4.7); POTASSIUM 3.9 MMOL/L (3.6-5.0); SODIUM 140 MMOL/L (135-145)
[2016-08-20] MEDS: KCL 20 MEQ TAB (K-DUR) PO SCH (05:08)
[2016-08-20] MEDS: MAGNESIUM 1 GM/100 ML IVPB 100 ML IV SCH (05:08)
[2016-08-20] MEDS: POTASSIUM CL 10MEQ/50ML IVPB 50 ML IV SCH (05:08)
[2016-08-20] MEDS: LACTATED RINGERS 1,000 ML IV SCH ×3 (07:17→23:33)
[2016-08-20] MEDS: FAMOTIDINE 20MG/2ML IV (PEPCID) IVP SCH (08:30)
--- NOTE | 2016-08-20 09:57 | Pulmonary Progress Note ---
Subjective Subjective/Events-last exam PT is doing better. No complications noted. Exam Exam Vital Signs Date Time Temp Pulse Resp B/P (MAP) Pulse Ox O2 Delivery O2 Flow Rate FiO2 08/20/16 08:00 1.50 08/20/16 07:00 98.0 08/20/16 06:47 97 2.00 08/20/16 06:00 58 16 156/78 98 2.00 08/20/16 05:00 60 19 149/67 93 2.00 08/20/16 04:00 94 2.00 08/20/16 04:00 98.2 62 14 142/69 95 2.00 08/20/16 03:00 60 12 133/75 95 2.00 08/20/16 02:02 94 2.00 08/20/16 02:00 63 9 146/71 93 2.00 08/20/16 01:00 64 18 152/67 98 2.00 08/20/16 01:00 67 08/20/16 00:00 94 2.00 08/20/16 00:00 98.9 66 16 146/67 98 2.00 08/19/16 23:00 72 7 154/72 95 2.00 08/19/16 22:00 62 12 132/60 96 2.00 08/19/16 21:00 64 17 142/69 91 1.50 08/19/16 20:00 57 13 145/67 92 1.50 08/19/16 20:00 97.8 08/19/16 20:00 94 2.00 08/19/16 19:00 62 08/19/16 19:00 59 13 148/70 94 1.50 08/19/16 18:31 94 2.00 08/19/16 18:05 99.4 08/19/16 18:00 72 10 144/66 1.50 08/19/16 17:00 72 12 150/65 93 1.50 08/19/16 16:00 1.50 08/19/16 16:00 64 10 156/81 1.50 08/19/16 15:00 66 19 142/73 1.50 08/19/16 14:30 97 1.50 08/19/16 14:00 67 16 149/71 95 1.50 08/19/16 13:00 70 08/19/16 13:00 95 11 145/72 94 1.50 08/19/16 12:00 1.50 08/19/16 11:00 67 26 148/67 97 1.50 08/19/16 10:59 96 1.50 08/19/16 10:00 99.0 08/19/16 10:00 68 11 135/62 90 1.50 I & O 08/20/16 07:00 Intake Total 2200 ml Output Total 5000 ml Balance -2800 ml General Appearance: No Apparent Distress, WD/WN HEENT: PERRL/EOMI Neck: Full Range of Motion, Normal Inspection Respiratory: No Accessory Muscle Use, No Respiratory Distress Cardiovascular: Regular Rate, Rhythm Capillary Refill: Less Than 3 Seconds Gastrointestinal: normal bowel sounds, soft Extremity: No Calf Tenderness, No Pedal Edema Neurologic/Psychiatric: Other (patient just recieved some morphine. Able to be aroused but does not stay aroused. ) Skin: Normal Color, Warm/Dry, Other (midline incision I/C/D.) Results Lab Laboratory Tests 08/19/16 04:30 08/20/16 04:12 Assessment/Plan Assessment/Plan hx of colon cancer and s/p colonoscopy with bx Peritonitis secondary to colonic perforation from recent bx s/p ex lap with resection -Pain control hypotension - resolved 232 Pt is ok from my standpoint for transfer to 4th floor . I am going to sign off at this time. Please call with any questions or concerns. Clinical Quality Measures DVT/VTE Risk/Contraindication: Risk Factor Score Per Nursin RFS Level Per Nursing on Admit: 4+=Very High KRISS DA SILVA DO Aug 20, 2016 09:57
--- NOTE | 2016-08-20 10:16 | Progress Note ---
Subjective Subjective/Events-last exam Patient resting in bed, reports passing flatus. Alert and oriented when aroused. Report some nausea during the night but no nausea or vomiting at this time. Objective Exam Vital Signs Date Time Temp Pulse Resp B/P (MAP) Pulse Ox O2 Delivery O2 Flow Rate FiO2 08/20/16 08:00 1.50 08/20/16 07:00 98.0 08/20/16 07:00 55 08/20/16 06:47 97 2.00 08/20/16 06:00 58 16 156/78 98 2.00 08/20/16 05:00 60 19 149/67 93 2.00 08/20/16 04:00 94 2.00 08/20/16 04:00 98.2 62 14 142/69 95 2.00 08/20/16 03:00 60 12 133/75 95 2.00 08/20/16 02:02 94 2.00 08/20/16 02:00 63 9 146/71 93 2.00 08/20/16 01:00 64 18 152/67 98 2.00 08/20/16 01:00 67 08/20/16 00:00 94 2.00 08/20/16 00:00 98.9 66 16 146/67 98 2.00 08/19/16 23:00 72 7 154/72 95 2.00 08/19/16 22:00 62 12 132/60 96 2.00 08/19/16 21:00 64 17 142/69 91 1.50 08/19/16 20:00 57 13 145/67 92 1.50 08/19/16 20:00 97.8 08/19/16 20:00 94 2.00 08/19/16 19:00 62 08/19/16 19:00 59 13 148/70 94 1.50 08/19/16 18:31 94 2.00 08/19/16 18:05 99.4 08/19/16 18:00 72 10 144/66 1.50 08/19/16 17:00 72 12 150/65 93 1.50 08/19/16 16:00 1.50 08/19/16 16:00 64 10 156/81 1.50 08/19/16 15:00 66 19 142/73 1.50 08/19/16 14:30 97 1.50 08/19/16 14:00 67 16 149/71 95 1.50 08/19/16 13:00 70 08/19/16 13:00 95 11 145/72 94 1.50 08/19/16 12:00 1.50 08/19/16 11:00 67 26 148/67 97 1.50 08/19/16 10:59 96 1.50 I & O 08/20/16 07:00 Intake Total 2200 ml Output Total 5000 ml Balance -2800 ml Capillary Refill : Less Than 3 Seconds General Appearance: No Apparent Distress, WD/WN HEENT: PERRL/EOMI Neck: Full Range of Motion, Normal Inspection Respiratory: No Accessory Muscle Use, No Respiratory Distress Cardiovascular: Regular Rate, Rhythm Gastrointestinal: soft, tenderness (Generalizied tenderness. ) Extremity: No Calf Tenderness, No Pedal Edema Neurologic/Psychiatric: Alert, Oriented x3 Skin: Normal Color, Warm/Dry, Other (midline incision I/C/D.) Results Lab Laboratory Tests Test 08/19/16 04:30 08/20/16 04:12 Range/Units White Blood Count 5.6 4.5 4.3-11.0 10^3/uL Red Blood Count 3.77 L 3.83 L 4.35-5.85 10^6/uL Hemoglobin 10.9 L 11.2 L 11.5-16.0 G/DL Hematocrit 35 34 L 35-52 % Mean Corpuscular Volume 92 89 80-99 FL Mean Corpuscular Hemoglobin 29 29 25-34 PG Mean Corpuscular Hemoglobin Concent 32 33 32-36 G/DL Red Cell Distribution Width 20.8 H 19.3 H 10.0-14.5 % Platelet Count 94 L 103 L 130-400 10^3/uL Mean Platelet Volume 9.3 9.9 7.4-10.4 FL Neutrophils (%) (Auto) 78 H 73 42-75 % Lymphocytes (%) (Auto) 7 L 11 L 12-44 % Monocytes (%) (Auto) 14 H 15 H 0-12 % Eosinophils (%) (Auto) 0 1 0-10 % Basophils (%) (Auto) 0 0 0-10 % Neutrophils # (Auto) 4.4 3.2 1.8-7.8 X 10^3 Lymphocytes # (Auto) 0.4 L 0.5 L 1.0-4.0 X 10^3 Monocytes # (Auto) 0.8 0.7 0.0-1.0 X 10^3 Eosinophils # (Auto) 0.0 0.0 0.0-0.3 10^3/uL Basophils # (Auto) 0.0 0.0 0.0-0.1 10^3/uL Sodium Level 139 140 135-145 MMOL/L Potassium Level 4.2 3.9 3.6-5.0 MMOL/L Chloride Level 106 104 98-107 MMOL/L Carbon Dioxide Level 26 28 21-32 MMOL/L Anion Gap 7 8 5-14 MMOL/L Blood Urea Nitrogen 6 L 5 L 7-18 MG/DL Creatinine 0.69 0.65 0.60-1.30 MG/DL Estimat Glomerular Filtration Rate > 60 > 60 BUN/Creatinine Ratio 9 8 Glucose Level 128 H 106 H 70-105 MG/DL Calcium Level 8.6 8.9 8.5-10.1 MG/DL Phosphorus Level 2.3 1.6 L 2.3-4.7 MG/DL Magnesium Level 1.7 L 1.9 1.8-2.4 MG/DL Laboratory Tests 08/20/16 04:12: White Blood Count 4.5, Red Blood Count 3.83L, Hemoglobin 11.2L, Hematocrit 34L, Mean Corpuscular Volume 89, Mean Corpuscular Hemoglobin 29, Mean Corpuscular Hemoglobin Concent 33, Red Cell Distribution Width 19.3H, Platelet Count 103L, Mean Platelet Volume 9.9, Neutrophils (%) (Auto) 73, Lymphocytes (%) (Auto) 11L , Monocytes (%) (Auto) 15H, Eosinophils (%) (Auto) 1, Basophils (%) (Auto) 0, Neutrophils # (Auto) 3.2, Lymphocytes # (Auto) 0.5L, Monocytes # (Auto) 0.7, Eosinophils # (Auto) 0.0, Basophils # (Auto) 0.0, Sodium Level 140, Potassium Level 3.9, Chloride Level 104, Carbon Dioxide Level 28, Anion Gap 8, Blood Urea Nitrogen 5L, Creatinine 0.65, Estimat Glomerular Filtration Rate > 60, BUN/ Creatinine Ratio 8, Glucose Level 106H, Calcium Level 8.9, Phosphorus Level 1.6L , Magnesium Level 1.9 Microbiology 08/17/16 Gram Stain - Final, Resulted 08/17/16 Anaerobic Culture - Preliminary, Resulted No growth 08/17/16 Surgical Culture - Preliminary, Resulted No growth Assessment/Plan Assessment/Plan Assessment/Plan S/P Exploratory Laparotomy right colon resection for ulcerated mass. R sided Abdominal pain HX Colon Ca Pain control. PT and IS. WE will continue to monitor labs and vital signs. Passing flatus. Clear liquid diet at this time. Encouraged use of incentive spirometer, 10x an hour while awake. scd's dvt prophylaxis and PT. Harvey- Patient passing flatus. Nausea overnight. Feeling better. Pain better controlled. Denies nausea fever sweats chills shortness of breath or chest pain at this time. general no acute distress heart reg lungs nonlabored abdomen incisional tenderness incision clean dry intact no erythema ext nontender alert and oriented assessment as above including urinary retention- starr placed will try discontinue starr pain control ambulate lovenox for dvt prophylaxis and scd's clear liquids transfer to 4th floor IS Clinical Quality Measures DVT/VTE Risk/Contraindication: Risk Factor Score Per Nursin RFS Level Per Nursing on Admit: 4+=Very High EMIGDIO KING APRN Aug 20, 2016 10:16 MARICHUY GILL DO Aug 20, 2016 14:40
--- NOTE | 2016-08-20 11:35 | Physical Therapy Daily Note ---
PT Daily Note-Current Subjective Patient is feeling much better on this date and agrees to PT. Pain Numeric Pain Scale: 5-Moderate Pain Location: Medial Location Body Site: Abdomen Pain Description: Pressure, Acute Mental Status Patient Orientation: Normal For Age Attachments: Oxygen, IV Transfers Functional [place] Measure 0=Not Assessed/NA 4=Minimal Assistance 1=Total Assistance 5=Supervision or Setup 2=Maximal Assistance 6=Modified [place] 3=Moderate Assistance 7=Complete IndependenceIRFPAI Quality Coding Scale 6 Independent with activity with or without an assistive device 5 Patient requires set up or clean up by helper. Patient completes activity by themselves 4 Supervision or touching assist (CGA). [place] provide cues , steadying assist 3 The helper provides less than half the effort to complete the activity 2 The helper provides more than half the effort to complete the activity 1 Dependent. The helper does all the effort to complete an activity 7 Patient refused to complete or attempt activity 9 The patient did not perform the activity before the current illness or injury 88 Not attempted due to Medical conditions or safety concerns Transfers (B, C, W/C) (FIM): 5 Scootin Rollin Supine to/from Sit: 5 Sit to/from Stand: 5 Bed to/from Chair: 5 Gait Training Gait (FIM): 5 Distance (FIM): 3=150 ft Distance: 200' Gait Level of Assist: 5 Gait Persons Needed: 1 Gait Assistive Device: FWW safe and functional with FWW Assessment Patient much improved and staff has been instructed to ambulate with patient PRN. PT to decrease frequency to 5-6/wk due to patient's ability. PT Ui Developer With Angular Js Goals Ui Developer With Angular Js Goals PT Mcfp Goals Time Frame: Aug 25, 2016 Transfers (B,C,W/C) (FIM): 4 Gait (FIM): 1 Distance: 20' Gait Level of Assist: 4 Gait Assistive Device: FWW PT Plan Treatment/Plan Treatment Plan: Modify Plan, see comments (change frequency 5-6/wk) Treatment Plan: Bed Mobility, Education, Functional Activity Gerry, Functional Strength, Gait, Safety, Therapeutic Exercise, Transfers Treatment Duration: Aug 25, 2016 Visits Per Week: 10-11 Minutes/Day (M-F): 15-30 Minutes/Day (Sat/[place]): 15-30 Time/GCodes Time In: 1040 Time Out: 1050 Total Billed Treatment Time: 10 Total Billed Treatment 1 visit GT 10 min ADITYA,SHANTELL PT Aug 20, 2016 11:35
[2016-08-20] MEDS: ENOXAPARIN 40 MG/0.4 ML (LOVENOX) SYR SC SCH (11:50)
--- NOTE | 2016-08-20 12:06 | Diagnostic Imaging Report ---
EXAM: Postoperative radiograph of the chest. INDICATION: Dyspnea. COMPARISON: 08/19/2016. FINDINGS: There is mild right basilar infiltrates or atelectasis similar to the previous exam. The heart size is enlarged. There is mild vascular congestion. There is a tiny left pleural effusion suggested. No pneumothorax. There is an infusion port without change with the tip at the SVC level. Pneumoperitoneum from recent abdominal surgery again seen. IMPRESSION: Persistent mild right basilar atelectasis. Question of a tiny left effusion. Dictated by: Dictated on workstation # [id number]
[2016-08-20] MEDS ORDERED: DOCU-143 PO ×2 (14:42)
[2016-08-20] MEDS ORDERED: HYDR-3812 PO ×2 (14:42)
--- NOTE | 2016-08-20 14:44 | Discharge Inst-Simple/Standard ---
Discharge Inst-Standard Discharge Medications New, Converted or Re-Newed RX: RX on Chart Patient Instructions/Follow Up Plan of Care/Instructions/FU: 2 weeks Harvey Activity as Tolerated: No Discharge Diet: Soft Diet Other Inst to Patient Follow up Appt: Make appointment for 2 week. Instructions: No lifting greater than 10 pounds. No strenuous activity. May shower in 24 hours, no tub bath or soaking. Use incentive spirometer at home as directed. No Smoking Skin/Wound Care: Keep clean and dry. Symptoms to Report: Appetite Changes, Extremity Discoloration, Numbness/Tingling, Swelling Increased , Bleeding Excessive, Eyesight Changes, Pain Increased, Urine Color Change, Constipation(Persistent), Fever over 101 degree F, Pain/Pressure in chest, Urinating Difficulty, Cough Up/Vomit Blood, Heart Beat Irreg/Pounding, Pain/ Pressure in jaw, Vaginal Bleeding Increase, Cramps in feet or legs, Lightheadedness, Pain/Pressure in shoulder, Diarrhea(Persistent), Memory Changes Suddenly, Questions/Concerns, Weight gain consecutive days, Dizziness/ Fainting, Nausea/Vomiting, Shortness of Breath, Weight gain over 2 pounds If questions or concerns contact your physician Or seek help at emergency department. MARICHUY GILL DO Aug 20, 2016 14:44
[2016-08-20] MEDS: HYDROcodone/APAP 5 MG/325 MG (LORTAB) TAB PO PRN ×2 (15:11→19:24)
[2016-08-21] VITALS: BP 146/64
[2016-08-21] MEDS: HYDROcodone/APAP 5 MG/325 MG (LORTAB) TAB PO PRN ×5 (02:29→22:14)
[2016-08-21 04:05] VITALS: BP 138/69
[2016-08-21 05:49] LABS: BASOPHILS % (AUTO) 1 % (0-10); EOSINOPHILS # (AUTO) 0.2 10^3/uL (0.0-0.3); EOSINOPHILS % (AUTO) 6 % (0-10); LYMPHOCYTES # (AUTO) 0.8 X 10^3 (1.0-4.0); LYMPHOCYTES % (AUTO) 23 % (12-44); MEAN CORPUSCULAR HEMOGLOBIN 29 PG (25-34); MEAN CORPUSCULAR HGB CONC 33 G/DL (32-36); MEAN CORPUSCULAR VOLUME 88 FL (80-99); MEAN PLATELET VOLUME 9.2 FL (7.4-10.4); MONOCYTES # (AUTO) 0.6 X 10^3 (0.0-1.0); MONOCYTES % (AUTO) 18 % (0-12); NEUTROPHILS # (AUTO) 1.8 X 10^3 (1.8-7.8); NEUTROPHILS % (AUTO) 51 % (42-75); PLATELET COUNT 127 10^3/uL (130-400); RED BLOOD COUNT 3.76 10^6/uL (4.35-5.85); RED CELL DISTRIBUTION WIDTH 19.1 % (10.0-14.5); WHITE BLOOD COUNT 3.5 10^3/uL (4.3-11.0)
[2016-08-21] MEDS: LACTATED RINGERS 1,000 ML IV SCH ×3 (06:10→22:14)
[2016-08-21 06:15] LABS: ANION GAP 8 MMOL/L (5-14); BLOOD UREA NITROGEN 7 MG/DL (7-18); BUN/CREATININE RATIO 11; CALCIUM 8.8 MG/DL (8.5-10.1); CARBON DIOXIDE 28 MMOL/L (21-32); CHLORIDE 105 MMOL/L (98-107); CREATININE SERUM 0.61 MG/DL (0.60-1.30); GFR ESTIMATED > 60; GLUCOSE 104 MG/DL (70-105); MAGNESIUM 1.8 MG/DL (1.8-2.4); PHOSPHORUS 1.4 MG/DL (2.3-4.7); POTASSIUM 3.5 MMOL/L (3.6-5.0); SODIUM 141 MMOL/L (135-145)
[2016-08-21 08:00] VITALS: BP 127/74
[2016-08-21] MEDS: ENOXAPARIN 40 MG/0.4 ML (LOVENOX) SYR SC SCH (10:00)
[2016-08-21] MEDS: FAMOTIDINE 20MG/2ML IV (PEPCID) IVP SCH (10:01)
--- NOTE | 2016-08-21 10:09 | Progress Note (SOAP) ---
Subjective Date Seen by Provider: Aug 21, 2016 Time Seen by Provider: 10:00 Subjective/Events-last exam Patient seen with Dr. Kelley. Patient reports doing well. ambulating and tolerating clear liquid diet. No N/V. passing gas but no BM yet. no fever/ chills. abdomen mild pain. Review of Systems General: No Chills, No Night Sweats Gastrointestinal: Abdominal Pain, No: Nausea, Vomiting Objective Exam Vital Signs Date Time Temp Pulse Resp B/P (MAP) Pulse Ox O2 Delivery O2 Flow Rate FiO2 08/21/16 08:00 97.0 73 18 127/74 92 08/21/16 04:05 99.1 69 18 138/69 90 08/21/16 00:00 98.9 69 18 146/64 90 08/20/16 19:35 98.3 79 16 145/76 98 08/20/16 18:22 96 2.00 08/20/16 16:09 97.6 65 14 163/76 98 08/20/16 15:03 98.0 86 16 145/83 98 1.00 08/20/16 13:48 95 2.00 08/20/16 13:00 68 08/20/16 13:00 98.9 1.50 08/20/16 12:00 67 17 97 2.00 08/20/16 12:00 1.50 08/20/16 11:02 95 2.00 08/20/16 11:00 67 15 98 2.00 I & O 08/21/16 07:00 Intake Total 4770 ml Output Total 3500 ml Balance 1270 ml Capillary Refill : Less Than 3 Seconds General Appearance: No Apparent Distress, WD/WN HEENT: PERRL/EOMI, TMs Normal, Normal ENT Inspection, Pharynx Normal Neck: Full Range of Motion, Normal Inspection, Non Tender, Supple Respiratory: Lungs Clear, Normal Breath Sounds, No Accessory Muscle Use, No Respiratory Distress Cardiovascular: Regular Rate, Rhythm Gastrointestinal: normal bowel sounds, soft, tenderness Extremity: Normal Capillary Refill, Normal Inspection, Normal Range of Motion, Non Tender, No Calf Tenderness Neurologic/Psychiatric: Alert, Oriented x3 Skin: Normal Color, Warm/Dry, Other (Mid-line incisinon C/D/I, tender to palpation.) Results Lab Laboratory Tests 08/21/16 05:45: White Blood Count 3.5L, Red Blood Count 3.76L, Hemoglobin 10.9L, Hematocrit 33L , Mean Corpuscular Volume 88, Mean Corpuscular Hemoglobin 29, Mean Corpuscular Hemoglobin Concent 33, Red Cell Distribution Width 19.1H, Platelet Count 127L, Mean Platelet Volume 9.2, Neutrophils (%) (Auto) 51, Lymphocytes (%) (Auto) 23, Monocytes (%) (Auto) 18H, Eosinophils (%) (Auto) 6, Basophils (%) (Auto) 1, Neutrophils # (Auto) 1.8, Lymphocytes # (Auto) 0.8L, Monocytes # (Auto) 0.6, Eosinophils # (Auto) 0.2, Basophils # (Auto) 0.0, Sodium Level 141, Potassium Level 3.5L, Chloride Level 105, Carbon Dioxide Level 28, Anion Gap 8, Blood Urea Nitrogen 7, Creatinine 0.61, Estimat Glomerular Filtration Rate > 60, BUN/ Creatinine Ratio 11, Glucose Level 104, Calcium Level 8.8, Phosphorus Level 1.4L , Magnesium Level 1.8 Microbiology 08/17/16 Gram Stain - Final, Resulted 08/17/16 Anaerobic Culture - Preliminary, Resulted No growth 08/17/16 Surgical Culture - Preliminary, Resulted No growth Assessment/Plan Assessment/Plan Assess & Plan/Chief Complaint S/P Exploratory Laparotomy right colon resection for ulcerated mass. R sided Abdominal pain HX Colon Ca Labs and VSS. Ambulation and IS. will advance diet to DYS3. will await BM. Clinical Quality Measures DVT/VTE Risk/Contraindication: Risk Factor Score Per Nursin RFS Level Per Nursing on Admit: 4+=Very High JOSELITO MOODY DATA ENTRY PROCESSOR Aug 21, 2016 10:09 am
[2016-08-21 11:43] VITALS: BP 142/67
--- NOTE | 2016-08-21 12:36 | Physical Therapy Daily Note ---
PT Daily Note-Current Subjective Pt sitting in recliner and had just finished eating upon arrival. Pt agreed to walking for PT. Pain Numeric Pain Scale: 8 Location: Left Location Body Site: Shoulder Pain Description: Cramping Mental Status Patient Orientation: Person, Place, Situation Attachments: IV Transfers Functional [place] Measure 0=Not Assessed/NA 4=Minimal Assistance 1=Total Assistance 5=Supervision or Setup 2=Maximal Assistance 6=Modified [place] 3=Moderate Assistance 7=Complete IndependenceIRFPAI Quality Coding Scale 6 Independent with activity with or without an assistive device 5 Patient requires set up or clean up by helper. Patient completes activity by themselves 4 Supervision or touching assist (CGA). [place] provide cues , steadying assist 3 The helper provides less than half the effort to complete the activity 2 The helper provides more than half the effort to complete the activity 1 Dependent. The helper does all the effort to complete an activity 7 Patient refused to complete or attempt activity 9 The patient did not perform the activity before the current illness or injury 88 Not attempted due to Medical conditions or safety concerns Scootin Sit to/from Stand: 5 Weight Bearing Weight Bearing Restriction: Full Weight Bearing Location Restriction: LE Bilateral Gait Training Distance (FIM): 3=150 ft Distance: 300' Gait Level of Assist: 5 Gait Persons Needed: 1 Gait Assistive Device: None Pt uses IV pole to steady themselves although doesn't appear to need it. Treatments Pt trasnfers from recliner to standing at [facility] Pt ambulates in hallway at A, returning to room to rest. Pt rests at EOB with all needs met at end of tx. Assessment Current Status: Good Progress Pt is getting stronger and activity tolerance is improving. PT Window Shade Ring Coverer Goals Window Shade Ring Coverer Goals PT Window Shade Ring Coverer Goals Time Frame: Aug 25, 2016 Transfers (B,C,W/C) (FIM): 4 Gait (FIM): 1 Distance: 20' Gait Level of Assist: 4 Gait Assistive Device: FWW PT Plan Problem List Problem List: Activity Tolerance, Functional Strength, Balance, Gait Treatment/Plan Treatment Plan: Continue Plan of Care Treatment Plan: Bed Mobility, Education, Functional Activity Gerry, Functional Strength, Gait, Safety, Therapeutic Exercise, Transfers Treatment Duration: Aug 25, 2016 Visits Per Week: 10-11 Minutes/Day (M-F): 15-30 Minutes/Day (Sat/[place]): 15-30 Safety Risks/Education Patient Education: Gait Training, Transfer Techniques, Correct Positioning, Safety Issues Teaching Recipient: Patient Teaching Methods: Discussion Response to Teaching: Verbalize Understanding Time/GCodes Time In: 1115 Time Out: 1130 Total Billed Treatment Time: 15 Total Billed Treatment visit, GT (15m) LENNOX DYER PRESIDENT OF THE [place] Aug 21, 2016 12:36
[2016-08-21 16:00] VITALS: BP 148/76
[2016-08-21 20:00] VITALS: BP 134/69
[2016-08-22] VITALS: BP 134/64
[2016-08-22] MEDS: HYDROcodone/APAP 5 MG/325 MG (LORTAB) TAB PO PRN ×3 (03:17→15:59)
[2016-08-22 05:39] LABS: BASOPHILS % (AUTO) 1 % (0-10); EOSINOPHILS # (AUTO) 0.3 10^3/uL (0.0-0.3); EOSINOPHILS % (AUTO) 9 % (0-10); LYMPHOCYTES # (AUTO) 0.7 X 10^3 (1.0-4.0); LYMPHOCYTES % (AUTO) 20 % (12-44); MEAN CORPUSCULAR HEMOGLOBIN 29 PG (25-34); MEAN CORPUSCULAR HGB CONC 33 G/DL (32-36); MEAN CORPUSCULAR VOLUME 88 FL (80-99); MEAN PLATELET VOLUME 8.9 FL (7.4-10.4); MONOCYTES # (AUTO) 0.7 X 10^3 (0.0-1.0); MONOCYTES % (AUTO) 19 % (0-12); NEUTROPHILS # (AUTO) 1.8 X 10^3 (1.8-7.8); NEUTROPHILS % (AUTO) 51 % (42-75); PLATELET COUNT 129 10^3/uL (130-400); RED BLOOD COUNT 3.63 10^6/uL (4.35-5.85); WHITE BLOOD COUNT 3.6 10^3/uL (4.3-11.0)
[2016-08-22 05:51] LABS: ANION GAP 6 MMOL/L (5-14); BLOOD UREA NITROGEN 7 MG/DL (7-18); BUN/CREATININE RATIO 12; CALCIUM 8.6 MG/DL (8.5-10.1); CARBON DIOXIDE 28 MMOL/L (21-32); CHLORIDE 106 MMOL/L (98-107); CREATININE SERUM 0.59 MG/DL (0.60-1.30); GFR ESTIMATED > 60; GLUCOSE 99 MG/DL (70-105); MAGNESIUM 1.6 MG/DL (1.8-2.4); PHOSPHORUS 2.2 MG/DL (2.3-4.7); POTASSIUM 3.3 MMOL/L (3.6-5.0); SODIUM 140 MMOL/L (135-145)
[2016-08-22] MEDS: LACTATED RINGERS 1,000 ML IV SCH (06:40)
[2016-08-22 08:00] VITALS: BP 149/71
[2016-08-22] MEDS: FAMOTIDINE 20MG/2ML IV (PEPCID) IVP SCH (09:09)
[2016-08-22] MEDS: ENOXAPARIN 40 MG/0.4 ML (LOVENOX) SYR SC SCH (09:09)
--- NOTE | 2016-08-22 10:05 | Progress Note (SOAP) ---
Subjective Date Seen by Provider: Aug 22, 2016 Time Seen by Provider: 09:50 Subjective/Events-last exam Patient seen with Dr. Kelley. Patient reports doing well. No N/V. Tolerating diet and ambulating. Having BMs. No fever/chills. Still complains of abdominal pain. Review of Systems General: No Chills, No Night Sweats Gastrointestinal: Abdominal Pain, No: Nausea, Vomiting Objective Exam Vital Signs Date Time Temp Pulse Resp B/P (MAP) Pulse Ox O2 Delivery O2 Flow Rate FiO2 08/22/16 08:00 99.3 74 16 149/71 93 08/22/16 00:00 98.6 73 20 134/64 91 08/21/16 20:00 98.5 72 16 134/69 92 08/21/16 16:00 98.9 66 18 148/76 93 08/21/16 11:43 98.2 70 20 142/67 93 I & O 08/22/16 07:00 Intake Total 4560 ml Output Total 1900 ml Balance 2660 ml Capillary Refill : Less Than 3 Seconds General Appearance: No Apparent Distress, WD/WN HEENT: PERRL/EOMI Neck: Full Range of Motion, Normal Inspection, Non Tender, Supple Respiratory: Lungs Clear, Normal Breath Sounds, No Accessory Muscle Use, No Respiratory Distress Cardiovascular: Regular Rate, Rhythm Gastrointestinal: normal bowel sounds, soft, tenderness Extremity: Normal Capillary Refill, Normal Inspection, Normal Range of Motion, Non Tender, No Calf Tenderness, No Pedal Edema Neurologic/Psychiatric: Alert, Oriented x3 Skin: Normal Color, Warm/Dry, Other (Midline incision C/D/I.) Results Lab Laboratory Tests 08/22/16 05:33: White Blood Count 3.6L, Red Blood Count 3.63L, Hemoglobin 10.6L, Hematocrit 32L , Mean Corpuscular Volume 88, Mean Corpuscular Hemoglobin 29, Mean Corpuscular Hemoglobin Concent 33, Red Cell Distribution Width 19.0H, Platelet Count 129L, Mean Platelet Volume 8.9, Neutrophils (%) (Auto) 51, Lymphocytes (%) (Auto) 20, Monocytes (%) (Auto) 19H, Eosinophils (%) (Auto) 9, Basophils (%) (Auto) 1, Neutrophils # (Auto) 1.8, Lymphocytes # (Auto) 0.7L, Monocytes # (Auto) 0.7, Eosinophils # (Auto) 0.3, Basophils # (Auto) 0.0, Sodium Level 140, Potassium Level 3.3L, Chloride Level 106, Carbon Dioxide Level 28, Anion Gap 6, Blood Urea Nitrogen 7, Creatinine 0.59L, Estimat Glomerular Filtration Rate > 60, BUN/ Creatinine Ratio 12, Glucose Level 99, Calcium Level 8.6, Phosphorus Level 2.2L , Magnesium Level 1.6L Microbiology 08/17/16 Gram Stain - Final, Resulted 08/17/16 Anaerobic Culture - Preliminary, Resulted No growth 08/17/16 Surgical Culture - Preliminary, Resulted No growth Assessment/Plan Assessment/Plan Assess & Plan/Chief Complaint S/P Exploratory Laparotomy right colon resection for ulcerated mass. R sided Abdominal pain HX Colon Ca Labs and VSS. Ambulation and IS. will advance diet to DYS3. will await BM. 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
[2016-08-22 15:53] VITALS: BP 149/73
[2016-08-22 16:20] VITALS: BP 146/73
--- NOTE | 2016-08-24 09:10 | OPERATIVE REPORT ---
DATE OF SERVICE: 08/17/2016 PREOPERATIVE DIAGNOSIS: Free air, ulcerative right colon mass, status post colonoscopy. POSTOPERATIVE DIAGNOSIS: Ascending right colon mass. PROCEDURE: Exploratory laparotomy with right colon resection. SURGEON: Harvey ANESTHESIA: General. ESTIMATED BLOOD LOSS: Minimal. COMPLICATIONS: None. INDICATIONS: The patient is a 71-year-old female with previous history of left sigmoid resection due to a colon mass. She recently has had a bleeding episode and had a PET scan with suspicious lesion in the right colon. The patient was explained risks and benefits of colonoscopy and underwent colonoscopy this morning. On colonoscopy in the ascending colon, an ulcerative mass was found and also a polyp in the cecum. The cecal polyp had hot biopsy polypectomy performed. The ulcerative mass had multiple biopsies obtained. The patient was discharged. She was doing well. She began having severe abdominal pain on the right side, nausea and vomiting and went to the Emergency Department for further evaluation. She had a CT scan demonstrating a small amount of free air, but was having significant pain. Because of the pain, the free air and the need for surgical intervention in any event and she had already undergone a bowel prep, we decided to go ahead and proceed with exploration and right colon resection. Consent was signed and on the chart. The patient understood all risks and benefits and consent was signed. PROCEDURE: The patient was taken to the operating suite. She was prepped and draped in sterile fashion. Surgical pause was performed. A midline incision was made and the abdomen was entered. The colon had some distention from previous colonoscopy. The cecum was located and inspected and brought up into the surgical field and the right colon was inspected. There were no signs of any perforation. The Sara ink tattooing was located in the right colon. There was a palpable mass within the right colon. The colon was continued to be inspected. No obvious perforation was present in the entire portion of the colon. The small bowel had normal appearance. The liver was inspected and palpated, small 1 cm palpable cyst high on the right liver. Stomach had normal appearance and normal feel. The patient did have some adhesions of the small bowel down to the right pelvis and also with the omentum up to the liver. The terminal ileum was then dissected around and a COMFORT-75 blue load was then fired across the terminal ileum. The colon was then mobilized along the white line of [place] with blunt and cautery dissection. Once the tattooing was passed and the colon was mobilized well enough, a portion of the hepatic flexure had to be mobilized as well for the anastomosis to be performed. The LigaSure was then used to dissect the mesentery to the colon. The duodenum was visualized and able to be swept down posteriorly away from the colon. Once the tattooing was passed, the colon was dissected around with a hemostat and a COMFORT-75 stapler was then fired across. Specimen was sent for pathology and was opened on the back table demonstrating the ulcerative mass that was removed. 3-0 silk suture was then used to approximate the small bowel together with the colon for the anastomosis. A COMFORT-75 blue staple load was then fired down the limb of the small bowel and also the colon. Once this was performed, the opening was brought together and a TA 60 blue stapler was then fired to complete the anastomosis. There was a 3-0 silk suture placed for crotch stitch. The mesenteric defect was then closed using 3-0 Vicryl in a running fashion. Copious amounts of irrigation was used to irrigate. Hemostasis had been achieved. The anastomosis was patent. The fascia was then closed using 1-0 looped PDS. The subcutaneous tissues were then slightly mobilized and the wound was then irrigated. The skin was then closed with albaro. The areas were washed and dried and sterile bandage was applied. The patient tolerated procedure well without any complications. She was taken to the recovery room in stable condition. Dr. Gerard assisted with retraction, dissection and closure. Job ID: [id number] DocumentID: [id number] Dictated Date: 08/17/2016 19:12:19 Bradley Linebacker Crewmember Date: 08/18/2016 03:05:51 Dictated By: MARICHUY GILL DO <Dictated by MARICHUY GILL DO> <Electronically signed by MARICHUY GILL DO> 08/19/16 [id number]
== END 2016-08-22 16:20 | disposition home or self-care (01) | DRG 331 ==
LOC: EDUNIT# 09:49 → ER 09:51 → SDC 12:10 → ICU 16:40 → SDC 08-18 08:18 → ICU 08-18 08:18 → 4TH 08-20 14:59 → ENPENDDIS 08-22 17:00
PROVIDERS: ADMIT Surgery; ATTEND Surgery
PROC: 0DTF0ZZ Resection of Right Large Intestine, Open Approach (ICD-10-PCS; principal; 2016-08-17 14:15)
DX: C18.2 Malignant neoplasm of ascending colon (principal); I95.9 Hypotension, unspecified
CPT/HCPCS: 36415; 71010; 74177; 80048; 80053; 83690; 83735; 84100; 85025; 85027; 86850; 86900; 86901; 86920; 87070; 87075; 87205; 94664; 94760; 96365; 96375

== ENCOUNTER 2016-08-30 12:37 | Outpatient (RCR) | payer MEDICARE, OTHER ==
[2016-06-14 15:14] LABS: BASOPHILS % (AUTO) 1 % (0-10); EOSINOPHILS # (AUTO) 0.1 10^3/uL (0.0-0.3); EOSINOPHILS % (AUTO) 3 % (0-10); LYMPHOCYTES % (AUTO) 23 % (12-44); MEAN CORPUSCULAR HEMOGLOBIN 24 PG (25-34); MEAN CORPUSCULAR HGB CONC 30 G/DL (32-36); MEAN CORPUSCULAR VOLUME 78 FL (80-99); MEAN PLATELET VOLUME 9.7 FL (7.4-10.4); MONOCYTES # (AUTO) 0.4 X 10^3 (0.0-1.0); MONOCYTES % (AUTO) 10 % (0-12); NEUTROPHILS # (AUTO) 2.7 X 10^3 (1.8-7.8); NEUTROPHILS % (AUTO) 64 % (42-75); PLATELET COUNT 213 10^3/uL (130-400); RED BLOOD COUNT 4.29 10^6/uL (4.35-5.85); RED CELL DISTRIBUTION WIDTH 20.5 % (10.0-14.5); WHITE BLOOD COUNT 4.3 10^3/uL (4.3-11.0)
[2016-06-14 16:11] LABS: ALANINE AMINOTRANSFERASE 10 U/L (0-55); ALBUMIN 3.7 G/DL (3.2-4.5); ANION GAP 5 MMOL/L (5-14); ASPARTATE AMINO TRANSFERASE 13 U/L (5-34); BILIRUBIN,TOTAL 0.2 MG/DL (0.1-1.0); BLOOD UREA NITROGEN 12 MG/DL (7-18); BUN/CREATININE RATIO 15; CALCIUM 9.4 MG/DL (8.5-10.1); CARBON DIOXIDE 28 MMOL/L (21-32); CHLORIDE 109 MMOL/L (98-107); GFR ESTIMATED > 60; GLUCOSE 106 MG/DL (70-105); POTASSIUM 3.7 MMOL/L (3.6-5.0); SODIUM 142 MMOL/L (135-145); TOTAL PROTEIN 6.1 G/DL (6.4-8.2)
[2016-06-28 11:47] LABS: BASOPHILS % (AUTO) 0 % (0-10); EOSINOPHILS # (AUTO) 0.1 10^3/uL (0.0-0.3); EOSINOPHILS % (AUTO) 1 % (0-10); LYMPHOCYTES # (AUTO) 1.3 X 10^3 (1.0-4.0); LYMPHOCYTES % (AUTO) 23 % (12-44); MEAN CORPUSCULAR HGB CONC 31 G/DL (32-36); MEAN CORPUSCULAR VOLUME 79 FL (80-99); MEAN PLATELET VOLUME 9.3 FL (7.4-10.4); MONOCYTES # (AUTO) 0.6 X 10^3 (0.0-1.0); MONOCYTES % (AUTO) 11 % (0-12); NEUTROPHILS # (AUTO) 3.7 X 10^3 (1.8-7.8); NEUTROPHILS % (AUTO) 65 % (42-75); PLATELET COUNT 278 10^3/uL (130-400); RED BLOOD COUNT 4.29 10^6/uL (4.35-5.85); RED CELL DISTRIBUTION WIDTH 18.8 % (10.0-14.5); WHITE BLOOD COUNT 5.7 10^3/uL (4.3-11.0)
[2016-06-28 11:48] LABS: MEAN CORPUSCULAR HEMOGLOBIN 24 PG (25-34)
[2016-06-28 12:07] LABS: ALANINE AMINOTRANSFERASE 11 U/L (0-55); ALBUMIN 3.5 G/DL (3.2-4.5); ANION GAP 7 MMOL/L (5-14); ASPARTATE AMINO TRANSFERASE 14 U/L (5-34); BILIRUBIN,TOTAL 0.3 MG/DL (0.1-1.0); BLOOD UREA NITROGEN 13 MG/DL (7-18); BUN/CREATININE RATIO 17; CALCIUM 9.5 MG/DL (8.5-10.1); CARBON DIOXIDE 26 MMOL/L (21-32); CHLORIDE 110 MMOL/L (98-107); CREATININE SERUM 0.76 MG/DL (0.60-1.30); GFR ESTIMATED > 60; GLUCOSE 110 MG/DL (70-105); POTASSIUM 3.7 MMOL/L (3.6-5.0); SODIUM 143 MMOL/L (135-145); TOTAL PROTEIN 5.9 G/DL (6.4-8.2)
[2016-07-12 08:49] LABS: BASOPHILS % (AUTO) 1 % (0-10); EOSINOPHILS # (AUTO) 0.1 10^3/uL (0.0-0.3); EOSINOPHILS % (AUTO) 2 % (0-10); LYMPHOCYTES # (AUTO) 0.8 X 10^3 (1.0-4.0); LYMPHOCYTES % (AUTO) 22 % (12-44); MEAN CORPUSCULAR HEMOGLOBIN 25 PG (25-34); MEAN CORPUSCULAR HGB CONC 32 G/DL (32-36); MEAN CORPUSCULAR VOLUME 78 FL (80-99); MEAN PLATELET VOLUME 9.3 FL (7.4-10.4); MONOCYTES # (AUTO) 0.5 X 10^3 (0.0-1.0); MONOCYTES % (AUTO) 12 % (0-12); NEUTROPHILS # (AUTO) 2.4 X 10^3 (1.8-7.8); NEUTROPHILS % (AUTO) 63 % (42-75); PLATELET COUNT 178 10^3/uL (130-400); RED BLOOD COUNT 4.08 10^6/uL (4.35-5.85); WHITE BLOOD COUNT 3.8 10^3/uL (4.3-11.0)
[2016-07-12 09:12] LABS: ALANINE AMINOTRANSFERASE 18 U/L (0-55); ALBUMIN 3.7 G/DL (3.2-4.5); ANION GAP 9 MMOL/L (5-14); ASPARTATE AMINO TRANSFERASE 22 U/L (5-34); BILIRUBIN,TOTAL 0.3 MG/DL (0.1-1.0); BLOOD UREA NITROGEN 13 MG/DL (7-18); BUN/CREATININE RATIO 17; CALCIUM 9.4 MG/DL (8.5-10.1); CARBON DIOXIDE 23 MMOL/L (21-32); CHLORIDE 113 MMOL/L (98-107); CREATININE SERUM 0.78 MG/DL (0.60-1.30); GFR ESTIMATED > 60; GLUCOSE 135 MG/DL (70-105); MAGNESIUM 1.9 MG/DL (1.8-2.4); POTASSIUM 3.8 MMOL/L (3.6-5.0); SODIUM 145 MMOL/L (135-145); TOTAL PROTEIN 6.1 G/DL (6.4-8.2)
[2016-07-19 11:17] LABS: BASOPHILS % (AUTO) 1 % (0-10); EOSINOPHILS # (AUTO) 0.3 10^3/uL (0.0-0.3); EOSINOPHILS % (AUTO) 8 % (0-10); LYMPHOCYTES # (AUTO) 1.1 X 10^3 (1.0-4.0); LYMPHOCYTES % (AUTO) 28 % (12-44); MEAN CORPUSCULAR HEMOGLOBIN 25 PG (25-34); MEAN CORPUSCULAR HGB CONC 32 G/DL (32-36); MEAN CORPUSCULAR VOLUME 78 FL (80-99); MEAN PLATELET VOLUME 9.3 FL (7.4-10.4); MONOCYTES # (AUTO) 0.6 X 10^3 (0.0-1.0); MONOCYTES % (AUTO) 16 % (0-12); NEUTROPHILS # (AUTO) 1.9 X 10^3 (1.8-7.8); NEUTROPHILS % (AUTO) 48 % (42-75); PLATELET COUNT 215 10^3/uL (130-400); RED BLOOD COUNT 4.21 10^6/uL (4.35-5.85); RED CELL DISTRIBUTION WIDTH 17.3 % (10.0-14.5); WHITE BLOOD COUNT 3.9 10^3/uL (4.3-11.0)
[2016-07-19 11:44] LABS: ANION GAP 8 MMOL/L (5-14); BLOOD UREA NITROGEN 12 MG/DL (7-18); BUN/CREATININE RATIO 16; CALCIUM 9.3 MG/DL (8.5-10.1); CARBON DIOXIDE 22 MMOL/L (21-32); CHLORIDE 109 MMOL/L (98-107); CREATININE SERUM 0.74 MG/DL (0.60-1.30); GFR ESTIMATED > 60; GLUCOSE 104 MG/DL (70-105); POTASSIUM 3.6 MMOL/L (3.6-5.0); SODIUM 139 MMOL/L (135-145)
[2016-07-26 09:23] LABS: BASOPHILS % (AUTO) 1 % (0-10); EOSINOPHILS # (AUTO) 0.1 10^3/uL (0.0-0.3); EOSINOPHILS % (AUTO) 2 % (0-10); LYMPHOCYTES % (AUTO) 20 % (12-44); MEAN CORPUSCULAR HEMOGLOBIN 27 PG (25-34); MEAN CORPUSCULAR HGB CONC 32 G/DL (32-36); MEAN CORPUSCULAR VOLUME 83 FL (80-99); MEAN PLATELET VOLUME 10.4 FL (7.4-10.4); MONOCYTES # (AUTO) 0.8 X 10^3 (0.0-1.0); MONOCYTES % (AUTO) 15 % (0-12); NEUTROPHILS # (AUTO) 3.1 X 10^3 (1.8-7.8); NEUTROPHILS % (AUTO) 63 % (42-75); PLATELET COUNT 97 10^3/uL (130-400); RED BLOOD COUNT 4.02 10^6/uL (4.35-5.85); RED CELL DISTRIBUTION WIDTH 20.1 % (10.0-14.5); WHITE BLOOD COUNT 4.9 10^3/uL (4.3-11.0)
[2016-07-26 09:41] LABS: ALANINE AMINOTRANSFERASE 55 U/L (0-55); ALBUMIN 3.7 G/DL (3.2-4.5); ANION GAP 5 MMOL/L (5-14); ASPARTATE AMINO TRANSFERASE 46 U/L (5-34); BILIRUBIN,TOTAL 0.3 MG/DL (0.1-1.0); BLOOD UREA NITROGEN 9 MG/DL (7-18); BUN/CREATININE RATIO 12; CALCIUM 9.3 MG/DL (8.5-10.1); CARBON DIOXIDE 26 MMOL/L (21-32); CHLORIDE 112 MMOL/L (98-107); CREATININE SERUM 0.76 MG/DL (0.60-1.30); GFR ESTIMATED > 60; GLUCOSE 96 MG/DL (70-105); SODIUM 143 MMOL/L (135-145); TOTAL PROTEIN 5.9 G/DL (6.4-8.2)
[2016-08-03 10:10] LABS: BASOPHILS % (AUTO) 1 % (0-10); EOSINOPHILS # (AUTO) 0.1 10^3/uL (0.0-0.3); EOSINOPHILS % (AUTO) 3 % (0-10); LYMPHOCYTES # (AUTO) 0.9 X 10^3 (1.0-4.0); LYMPHOCYTES % (AUTO) 28 % (12-44); MEAN CORPUSCULAR HEMOGLOBIN 28 PG (25-34); MEAN CORPUSCULAR HGB CONC 33 G/DL (32-36); MEAN CORPUSCULAR VOLUME 86 FL (80-99); MEAN PLATELET VOLUME 8.8 FL (7.4-10.4); MONOCYTES # (AUTO) 0.6 X 10^3 (0.0-1.0); MONOCYTES % (AUTO) 18 % (0-12); NEUTROPHILS # (AUTO) 1.5 X 10^3 (1.8-7.8); NEUTROPHILS % (AUTO) 50 % (42-75); PLATELET COUNT 145 10^3/uL (130-400); RED BLOOD COUNT 4.04 10^6/uL (4.35-5.85); RED CELL DISTRIBUTION WIDTH 23.5 % (10.0-14.5); WHITE BLOOD COUNT 3.1 10^3/uL (4.3-11.0)
[2016-08-03 10:39] LABS: ALANINE AMINOTRANSFERASE 29 U/L (0-55); ALBUMIN 3.6 G/DL (3.2-4.5); ANION GAP 3 MMOL/L (5-14); ASPARTATE AMINO TRANSFERASE 25 U/L (5-34); BILIRUBIN,TOTAL 0.3 MG/DL (0.1-1.0); BLOOD UREA NITROGEN 11 MG/DL (7-18); BUN/CREATININE RATIO 15; CALCIUM 9.2 MG/DL (8.5-10.1); CARBON DIOXIDE 27 MMOL/L (21-32); CHLORIDE 113 MMOL/L (98-107); CREATININE SERUM 0.75 MG/DL (0.60-1.30); GFR ESTIMATED > 60; GLUCOSE 96 MG/DL (70-105); POTASSIUM 3.8 MMOL/L (3.6-5.0); SODIUM 143 MMOL/L (135-145); TOTAL PROTEIN 5.7 G/DL (6.4-8.2)
[2016-08-10 09:51] LABS: BASOPHILS % (AUTO) 1 % (0-10); EOSINOPHILS # (AUTO) 0.3 10^3/uL (0.0-0.3); EOSINOPHILS % (AUTO) 7 % (0-10); LYMPHOCYTES # (AUTO) 1.3 X 10^3 (1.0-4.0); LYMPHOCYTES % (AUTO) 26 % (12-44); MEAN CORPUSCULAR HEMOGLOBIN 28 PG (25-34); MEAN CORPUSCULAR HGB CONC 33 G/DL (32-36); MEAN CORPUSCULAR VOLUME 85 FL (80-99); MEAN PLATELET VOLUME 9.3 FL (7.4-10.4); MONOCYTES # (AUTO) 0.5 X 10^3 (0.0-1.0); MONOCYTES % (AUTO) 11 % (0-12); NEUTROPHILS # (AUTO) 2.7 X 10^3 (1.8-7.8); NEUTROPHILS % (AUTO) 56 % (42-75); PLATELET COUNT 103 10^3/uL (130-400); WHITE BLOOD COUNT 4.8 10^3/uL (4.3-11.0)
[2016-08-10 10:22] LABS: ANION GAP 5 MMOL/L (5-14); BLOOD UREA NITROGEN 13 MG/DL (7-18); BUN/CREATININE RATIO 17; CARBON DIOXIDE 25 MMOL/L (21-32); CHLORIDE 111 MMOL/L (98-107); CREATININE SERUM 0.77 MG/DL (0.60-1.30); GFR ESTIMATED > 60; GLUCOSE 101 MG/DL (70-105); POTASSIUM 5.3 MMOL/L (3.6-5.0); SODIUM 141 MMOL/L (135-145)
[~2016-08-30] VITALS: Ht 172.7 cm; Wt 75.7 kg
[~2016-08-30 12:37] MED LIST: D5W 500 ML IV (CANCER CTR) 500 ML IV SCH; DOCU-143 PO; FAMOTIDINE 20MG/2ML IV (CANCER CTR) IV SCH; FERRIC CARBOXYMALTOSE (CANCER) 750 MG in NS (IVPB) CANCER CENTER 250 ML IV SCH; FLUOROURACIL IV SCH; FOSAPREPITANT 150 MG/NS 150 MG IVPB (CANCER CTR) IV PRN; HYDR-3812 PO; LEUCOVORIN CALCIUM IV SCH; ONDANSETRON 16 MG, DEXAMETHASONE 10 MG/NS 50 ML IVPB IV SCH; OXALIPLATIN 100 MG, OXALIPLATIN (GENERIC) 50 MG in D5W 250 ML IVPB (CANCER CTR) 250 ML IV SCH; OXALIPLATIN 160 MG in D5W 250 ML IVPB (CANCER CTR) 250 ML IV SCH; [UNRECOGNIZED DRUG - OTHER] IV SCH; diphenhydrAMINE 25 MG TAB (BENADRYL) CANCER CENTER PO SCH
[2016-08-30 13:04] LABS: BASOPHILS % (AUTO) 0 % (0-10); EOSINOPHILS # (AUTO) 0.1 10^3/uL (0.0-0.3); EOSINOPHILS % (AUTO) 2 % (0-10); LYMPHOCYTES # (AUTO) 1.2 X 10^3 (1.0-4.0); LYMPHOCYTES % (AUTO) 19 % (12-44); MEAN CORPUSCULAR HEMOGLOBIN 30 PG (25-34); MEAN CORPUSCULAR HGB CONC 33 G/DL (32-36); MEAN CORPUSCULAR VOLUME 91 FL (80-99); MEAN PLATELET VOLUME 8.5 FL (7.4-10.4); MONOCYTES # (AUTO) 0.7 X 10^3 (0.0-1.0); MONOCYTES % (AUTO) 11 % (0-12); NEUTROPHILS # (AUTO) 4.4 X 10^3 (1.8-7.8); NEUTROPHILS % (AUTO) 69 % (42-75); PLATELET COUNT 230 10^3/uL (130-400); RED BLOOD COUNT 4.36 10^6/uL (4.35-5.85); RED CELL DISTRIBUTION WIDTH 19.6 % (10.0-14.5); WHITE BLOOD COUNT 6.4 10^3/uL (4.3-11.0)
[2016-08-30 13:41] LABS: ALANINE AMINOTRANSFERASE 13 U/L (0-55); ALBUMIN 3.8 G/DL (3.2-4.5); ANION GAP 11 MMOL/L (5-14); ASPARTATE AMINO TRANSFERASE 18 U/L (5-34); BILIRUBIN,TOTAL 0.3 MG/DL (0.1-1.0); BLOOD UREA NITROGEN 9 MG/DL (7-18); BUN/CREATININE RATIO 12; CALCIUM 9.8 MG/DL (8.5-10.1); CARBON DIOXIDE 25 MMOL/L (21-32); CHLORIDE 108 MMOL/L (98-107); CREATININE SERUM 0.77 MG/DL (0.60-1.30); GFR ESTIMATED > 60; GLUCOSE 102 MG/DL (70-105); POTASSIUM 3.5 MMOL/L (3.6-5.0); SODIUM 144 MMOL/L (135-145); TOTAL PROTEIN 6.7 G/DL (6.4-8.2)
== END 2016-09-12 | disposition home or self-care (01) ==
LOC: ONC 12:37
PROVIDERS: ATTEND Internal Medicine Hematology & Oncology
DX: Z51.11 Encounter for antineoplastic chemotherapy (principal); C18.7 Malignant neoplasm of sigmoid colon; D50.9 Iron deficiency anemia, unspecified; Z87.891 Personal history of nicotine dependence
CPT/HCPCS: 36415; 36591; 80048; 80053; 82378; 82728; 83540; 83735; 85025; 96365; 96367; 96368; 96375; 96411; 96413; 96415; 96416; 96521; 99213; 99214

== ENCOUNTER → 2016-11-01 | Outpatient (CLI) | payer MEDICARE ==
[~2016-11-01] MED LIST changes: -D5W 500 ML IV (CANCER CTR) 500 ML IV SCH; -FAMOTIDINE 20MG/2ML IV (CANCER CTR) IV SCH; -FERRIC CARBOXYMALTOSE (CANCER) 750 MG in NS (IVPB) CANCER CENTER 250 ML IV SCH; -FLUOROURACIL IV SCH; -FOSAPREPITANT 150 MG/NS 150 MG IVPB (CANCER CTR) IV PRN; -LEUCOVORIN CALCIUM IV SCH; -ONDANSETRON 16 MG, DEXAMETHASONE 10 MG/NS 50 ML IVPB IV SCH; -OXALIPLATIN 100 MG, OXALIPLATIN (GENERIC) 50 MG in D5W 250 ML IVPB (CANCER CTR) 250 ML IV SCH; -OXALIPLATIN 160 MG in D5W 250 ML IVPB (CANCER CTR) 250 ML IV SCH; -[UNRECOGNIZED DRUG - OTHER] IV SCH; -diphenhydrAMINE 25 MG TAB (BENADRYL) CANCER CENTER PO SCH
--- NOTE | 2016-11-01 11:57 | Diagnostic Imaging Report ---
INDICATION: Port-A-Cath evaluation Port-A-Cath was accessed with Garay needle. Contrast was injected. The port tubing appears to be intact with no evidence of leak. Port-A-Cath tip appears to be in the right atrium. IMPRESSION: Right IJ Port-A-Cath injection study does not show any abnormalities. Dictated by: Dictated on workstation # [id number]
== END ==
LOC: RAD 11:02
PROVIDERS: ATTEND Internal Medicine Hematology & Oncology
DX: T85.698A Other mechanical complication of other specified internal prosthetic devices, implants and grafts, initial encounter (principal)
CPT/HCPCS: 36598

== ENCOUNTER 2016-12-06 08:21 | Outpatient (RCR) | payer MEDICARE ==
[2016-09-14 09:55] LABS: BASOPHILS % (AUTO) 0 % (0-10); EOSINOPHILS # (AUTO) 0.1 10^3/uL (0.0-0.3); EOSINOPHILS % (AUTO) 3 % (0-10); LYMPHOCYTES # (AUTO) 1.2 X 10^3 (1.0-4.0); LYMPHOCYTES % (AUTO) 29 % (12-44); MEAN CORPUSCULAR HGB CONC 34 G/DL (32-36); MEAN CORPUSCULAR VOLUME 91 FL (80-99); MEAN PLATELET VOLUME 9.6 FL (7.4-10.4); MONOCYTES # (AUTO) 0.5 X 10^3 (0.0-1.0); MONOCYTES % (AUTO) 12 % (0-12); NEUTROPHILS # (AUTO) 2.2 X 10^3 (1.8-7.8); NEUTROPHILS % (AUTO) 56 % (42-75); PLATELET COUNT 200 10^3/uL (130-400); RED BLOOD COUNT 4.23 10^6/uL (4.35-5.85); RED CELL DISTRIBUTION WIDTH 15.8 % (10.0-14.5)
[2016-09-14 10:02] LABS: MEAN CORPUSCULAR HEMOGLOBIN 30 PG (25-34)
[2016-09-14 11:04] LABS: ALANINE AMINOTRANSFERASE 14 U/L (0-55); ALBUMIN 3.9 GM/DL (3.2-4.5); ANION GAP 8 MMOL/L (5-14); ASPARTATE AMINO TRANSFERASE 18 U/L (5-34); BILIRUBIN,TOTAL 0.5 MG/DL (0.1-1.0); BLOOD UREA NITROGEN 13 MG/DL (7-18); BUN/CREATININE RATIO 17 (0-20); CALCIUM 9.8 MG/DL (8.5-10.1); CARBON DIOXIDE 25 MMOL/L (21-32); CHLORIDE 109 MMOL/L (98-107); CREATININE SERUM 0.75 MG/DL (0.60-1.30); GFR ESTIMATED > 60; GLUCOSE 100 MG/DL (70-105); HEMOLYSIS 8 (-100-29); ICTERUS 0.7 (-100-1.9); LIPEMIA 4 (-100-49); POTASSIUM 4.3 MMOL/L (3.6-5.0); SODIUM 142 MMOL/L (135-145); TOTAL PROTEIN 6.4 GM/DL (6.4-8.2)
[2016-09-27 08:51] LABS: BASOPHILS % (AUTO) 0 % (0-10); EOSINOPHILS # (AUTO) 0.1 10^3/uL (0.0-0.3); EOSINOPHILS % (AUTO) 3 % (0-10); LYMPHOCYTES % (AUTO) 20 % (12-44); MEAN CORPUSCULAR HEMOGLOBIN 31 PG (25-34); MEAN CORPUSCULAR HGB CONC 34 G/DL (32-36); MEAN CORPUSCULAR VOLUME 90 FL (80-99); MEAN PLATELET VOLUME 9.3 FL (7.4-10.4); MONOCYTES # (AUTO) 0.6 X 10^3 (0.0-1.0); MONOCYTES % (AUTO) 12 % (0-12); NEUTROPHILS # (AUTO) 3.3 X 10^3 (1.8-7.8); NEUTROPHILS % (AUTO) 65 % (42-75); PLATELET COUNT 166 10^3/uL (130-400); RED BLOOD COUNT 3.83 10^6/uL (4.35-5.85); RED CELL DISTRIBUTION WIDTH 14.8 % (10.0-14.5)
[2016-09-27 09:14] LABS: ALANINE AMINOTRANSFERASE 12 U/L (0-55); ALBUMIN 3.5 GM/DL (3.2-4.5); ANION GAP 6 MMOL/L (5-14); ASPARTATE AMINO TRANSFERASE 14 U/L (5-34); BILIRUBIN,TOTAL 0.4 MG/DL (0.1-1.0); BLOOD UREA NITROGEN 13 MG/DL (7-18); BUN/CREATININE RATIO 18; CALCIUM 9.3 MG/DL (8.5-10.1); CARBON DIOXIDE 24 MMOL/L (21-32); CHLORIDE 112 MMOL/L (98-107); CREATININE SERUM 0.73 MG/DL (0.60-1.30); GFR ESTIMATED > 60; GLUCOSE 99 MG/DL (70-105); POTASSIUM 3.9 MMOL/L (3.6-5.0); SODIUM 142 MMOL/L (135-145); TOTAL PROTEIN 5.9 GM/DL (6.4-8.2)
[2016-10-04 11:11] LABS: BASOPHILS % (AUTO) 0 % (0-10); EOSINOPHILS # (AUTO) 0.2 10^3/uL (0.0-0.3); EOSINOPHILS % (AUTO) 5 % (0-10); LYMPHOCYTES # (AUTO) 1.1 X 10^3 (1.0-4.0); LYMPHOCYTES % (AUTO) 25 % (12-44); MEAN CORPUSCULAR HEMOGLOBIN 30 PG (25-34); MEAN CORPUSCULAR HGB CONC 34 G/DL (32-36); MEAN CORPUSCULAR VOLUME 89 FL (80-99); MEAN PLATELET VOLUME 9.6 FL (7.4-10.4); MONOCYTES # (AUTO) 0.4 X 10^3 (0.0-1.0); MONOCYTES % (AUTO) 10 % (0-12); NEUTROPHILS # (AUTO) 2.6 X 10^3 (1.8-7.8); NEUTROPHILS % (AUTO) 60 % (42-75); PLATELET COUNT 148 10^3/uL (130-400); RED BLOOD COUNT 4.08 10^6/uL (4.35-5.85); WHITE BLOOD COUNT 4.3 10^3/uL (4.3-11.0)
[2016-10-04 11:41] LABS: ANION GAP 8 MMOL/L (5-14); BLOOD UREA NITROGEN 11 MG/DL (7-18); BUN/CREATININE RATIO 15; CALCIUM 9.6 MG/DL (8.5-10.1); CARBON DIOXIDE 22 MMOL/L (21-32); CHLORIDE 110 MMOL/L (98-107); CREATININE SERUM 0.74 MG/DL (0.60-1.30); GFR ESTIMATED > 60; GLUCOSE 109 MG/DL (70-105); POTASSIUM 3.7 MMOL/L (3.6-5.0); SODIUM 140 MMOL/L (135-145)
[2016-10-11 10:03] LABS: BASOPHILS % (AUTO) 0 % (0-10); EOSINOPHILS # (AUTO) 0.1 10^3/uL (0.0-0.3); EOSINOPHILS % (AUTO) 2 % (0-10); LYMPHOCYTES # (AUTO) 0.9 X 10^3 (1.0-4.0); LYMPHOCYTES % (AUTO) 19 % (12-44); MEAN CORPUSCULAR HEMOGLOBIN 31 PG (25-34); MEAN CORPUSCULAR HGB CONC 34 G/DL (32-36); MEAN CORPUSCULAR VOLUME 91 FL (80-99); MEAN PLATELET VOLUME 9.4 FL (7.4-10.4); MONOCYTES # (AUTO) 0.6 X 10^3 (0.0-1.0); MONOCYTES % (AUTO) 13 % (0-12); NEUTROPHILS % (AUTO) 66 % (42-75); PLATELET COUNT 109 10^3/uL (130-400); RED BLOOD COUNT 3.98 10^6/uL (4.35-5.85); RED CELL DISTRIBUTION WIDTH 15.3 % (10.0-14.5); WHITE BLOOD COUNT 4.6 10^3/uL (4.3-11.0)
[2016-10-11 10:32] LABS: ALANINE AMINOTRANSFERASE 23 U/L (0-55); ALBUMIN 3.6 GM/DL (3.2-4.5); ANION GAP 6 MMOL/L (5-14); ASPARTATE AMINO TRANSFERASE 25 U/L (5-34); BILIRUBIN,TOTAL 0.4 MG/DL (0.1-1.0); BLOOD UREA NITROGEN 8 MG/DL (7-18); BUN/CREATININE RATIO 11; CALCIUM 9.4 MG/DL (8.5-10.1); CARBON DIOXIDE 25 MMOL/L (21-32); CHLORIDE 112 MMOL/L (98-107); CREATININE SERUM 0.71 MG/DL (0.60-1.30); GFR ESTIMATED > 60; GLUCOSE 101 MG/DL (70-105); SODIUM 143 MMOL/L (135-145)
[2016-10-18 13:11] LABS: BASOPHILS % (AUTO) 1 % (0-10); EOSINOPHILS # (AUTO) 0.2 10^3/uL (0.0-0.3); EOSINOPHILS % (AUTO) 7 % (0-10); LYMPHOCYTES # (AUTO) 1.2 X 10^3 (1.0-4.0); LYMPHOCYTES % (AUTO) 31 % (12-44); MEAN CORPUSCULAR HEMOGLOBIN 31 PG (25-34); MEAN CORPUSCULAR HGB CONC 34 G/DL (32-36); MEAN CORPUSCULAR VOLUME 92 FL (80-99); MEAN PLATELET VOLUME 9.2 FL (7.4-10.4); MONOCYTES # (AUTO) 0.5 X 10^3 (0.0-1.0); MONOCYTES % (AUTO) 13 % (0-12); NEUTROPHILS # (AUTO) 1.8 X 10^3 (1.8-7.8); NEUTROPHILS % (AUTO) 49 % (42-75); PLATELET COUNT 118 10^3/uL (130-400); RED BLOOD COUNT 3.94 10^6/uL (4.35-5.85); RED CELL DISTRIBUTION WIDTH 14.4 % (10.0-14.5); WHITE BLOOD COUNT 3.7 10^3/uL (4.3-11.0)
[2016-10-18 14:08] LABS: ANION GAP 9 MMOL/L (5-14); BLOOD UREA NITROGEN 11 MG/DL (7-18); BUN/CREATININE RATIO 15; CALCIUM 9.6 MG/DL (8.5-10.1); CARBON DIOXIDE 25 MMOL/L (21-32); CHLORIDE 108 MMOL/L (98-107); CREATININE SERUM 0.72 MG/DL (0.60-1.30); GFR ESTIMATED > 60; GLUCOSE 96 MG/DL (70-105); SODIUM 142 MMOL/L (135-145)
[2016-10-25 10:00] LABS: BASOPHILS % (AUTO) 1 % (0-10); EOSINOPHILS # (AUTO) 0.1 10^3/uL (0.0-0.3); EOSINOPHILS % (AUTO) 3 % (0-10); LYMPHOCYTES # (AUTO) 0.9 X 10^3 (1.0-4.0); LYMPHOCYTES % (AUTO) 24 % (12-44); MEAN CORPUSCULAR HEMOGLOBIN 31 PG (25-34); MEAN CORPUSCULAR HGB CONC 34 G/DL (32-36); MEAN CORPUSCULAR VOLUME 93 FL (80-99); MEAN PLATELET VOLUME 9.6 FL (7.4-10.4); MONOCYTES # (AUTO) 0.7 X 10^3 (0.0-1.0); MONOCYTES % (AUTO) 17 % (0-12); NEUTROPHILS # (AUTO) 2.1 X 10^3 (1.8-7.8); NEUTROPHILS % (AUTO) 55 % (42-75); PLATELET COUNT 79 10^3/uL (130-400); RED BLOOD COUNT 3.82 10^6/uL (4.35-5.85); RED CELL DISTRIBUTION WIDTH 15.3 % (10.0-14.5); WHITE BLOOD COUNT 3.9 10^3/uL (4.3-11.0)
[2016-10-25 10:26] LABS: ALANINE AMINOTRANSFERASE 21 U/L (0-55); ALBUMIN 3.8 GM/DL (3.2-4.5); ANION GAP 10 MMOL/L (5-14); ASPARTATE AMINO TRANSFERASE 28 U/L (5-34); BILIRUBIN,TOTAL 0.5 MG/DL (0.1-1.0); BLOOD UREA NITROGEN 9 MG/DL (7-18); BUN/CREATININE RATIO 12; CALCIUM 9.7 MG/DL (8.5-10.1); CARBON DIOXIDE 23 MMOL/L (21-32); CHLORIDE 110 MMOL/L (98-107); CREATININE SERUM 0.77 MG/DL (0.60-1.30); GFR ESTIMATED > 60; GLUCOSE 91 MG/DL (70-105); POTASSIUM 3.8 MMOL/L (3.6-5.0); SODIUM 143 MMOL/L (135-145); TOTAL PROTEIN 6.3 GM/DL (6.4-8.2)
[2016-11-01 09:55] LABS: BASOPHILS % (AUTO) 0 % (0-10); EOSINOPHILS # (AUTO) 0.1 10^3/uL (0.0-0.3); EOSINOPHILS % (AUTO) 2 % (0-10); LYMPHOCYTES # (AUTO) 0.8 X 10^3 (1.0-4.0); LYMPHOCYTES % (AUTO) 27 % (12-44); MEAN CORPUSCULAR HEMOGLOBIN 32 PG (25-34); MEAN CORPUSCULAR HGB CONC 34 G/DL (32-36); MEAN CORPUSCULAR VOLUME 94 FL (80-99); MEAN PLATELET VOLUME 9.1 FL (7.4-10.4); MONOCYTES # (AUTO) 0.6 X 10^3 (0.0-1.0); MONOCYTES % (AUTO) 19 % (0-12); NEUTROPHILS # (AUTO) 1.6 X 10^3 (1.8-7.8); NEUTROPHILS % (AUTO) 53 % (42-75); PLATELET COUNT 101 10^3/uL (130-400); RED BLOOD COUNT 4.05 10^6/uL (4.35-5.85)
[2016-11-01 10:20] LABS: ANION GAP 8 MMOL/L (5-14); BLOOD UREA NITROGEN 10 MG/DL (7-18); BUN/CREATININE RATIO 13; CALCIUM 9.8 MG/DL (8.5-10.1); CARBON DIOXIDE 24 MMOL/L (21-32); CHLORIDE 110 MMOL/L (98-107); CREATININE SERUM 0.75 MG/DL (0.60-1.30); GFR ESTIMATED > 60; GLUCOSE 101 MG/DL (70-105); POTASSIUM 3.8 MMOL/L (3.6-5.0); SODIUM 142 MMOL/L (135-145)
[2016-11-08 10:08] LABS: BASOPHILS % (AUTO) 1 % (0-10); EOSINOPHILS # (AUTO) 0.2 10^3/uL (0.0-0.3); EOSINOPHILS % (AUTO) 7 % (0-10); LYMPHOCYTES # (AUTO) 0.8 X 10^3 (1.0-4.0); LYMPHOCYTES % (AUTO) 26 % (12-44); MEAN CORPUSCULAR HGB CONC 34 G/DL (32-36); MEAN CORPUSCULAR VOLUME 94 FL (80-99); MEAN PLATELET VOLUME 9.3 FL (7.4-10.4); MONOCYTES # (AUTO) 0.4 X 10^3 (0.0-1.0); MONOCYTES % (AUTO) 12 % (0-12); NEUTROPHILS # (AUTO) 1.8 X 10^3 (1.8-7.8); NEUTROPHILS % (AUTO) 55 % (42-75); PLATELET COUNT 68 10^3/uL (130-400); RED BLOOD COUNT 3.97 10^6/uL (4.35-5.85); RED CELL DISTRIBUTION WIDTH 14.3 % (10.0-14.5); WHITE BLOOD COUNT 3.2 10^3/uL (4.3-11.0)
[2016-11-08 10:09] LABS: MEAN CORPUSCULAR HEMOGLOBIN 31 PG (25-34)
[2016-11-08 11:04] LABS: ANION GAP 6 MMOL/L (5-14); BLOOD UREA NITROGEN 15 MG/DL (7-18); BUN/CREATININE RATIO 20; CALCIUM 9.7 MG/DL (8.5-10.1); CARBON DIOXIDE 27 MMOL/L (21-32); CHLORIDE 106 MMOL/L (98-107); CREATININE SERUM 0.76 MG/DL (0.60-1.30); GFR ESTIMATED > 60; GLUCOSE 94 MG/DL (70-105); POTASSIUM 4.2 MMOL/L (3.6-5.0); SODIUM 139 MMOL/L (135-145)
[2016-11-15 08:48] LABS: BASOPHILS % (AUTO) 0 % (0-10); EOSINOPHILS # (AUTO) 0.1 10^3/uL (0.0-0.3); EOSINOPHILS % (AUTO) 3 % (0-10); LYMPHOCYTES # (AUTO) 0.7 X 10^3 (1.0-4.0); LYMPHOCYTES % (AUTO) 20 % (12-44); MEAN CORPUSCULAR HEMOGLOBIN 32 PG (25-34); MEAN CORPUSCULAR HGB CONC 34 G/DL (32-36); MEAN CORPUSCULAR VOLUME 95 FL (80-99); MEAN PLATELET VOLUME 9.5 FL (7.4-10.4); MONOCYTES # (AUTO) 0.5 X 10^3 (0.0-1.0); MONOCYTES % (AUTO) 14 % (0-12); NEUTROPHILS # (AUTO) 2.2 X 10^3 (1.8-7.8); NEUTROPHILS % (AUTO) 63 % (42-75); PLATELET COUNT 72 10^3/uL (130-400); RED BLOOD COUNT 3.72 10^6/uL (4.35-5.85); RED CELL DISTRIBUTION WIDTH 14.9 % (10.0-14.5); WHITE BLOOD COUNT 3.5 10^3/uL (4.3-11.0)
[2016-11-15 09:10] LABS: ALANINE AMINOTRANSFERASE 22 U/L (0-55); ALBUMIN 3.6 GM/DL (3.2-4.5); ANION GAP 9 MMOL/L (5-14); ASPARTATE AMINO TRANSFERASE 33 U/L (5-34); BILIRUBIN,TOTAL 0.5 MG/DL (0.1-1.0); BLOOD UREA NITROGEN 11 MG/DL (7-18); BUN/CREATININE RATIO 16; CALCIUM 9.5 MG/DL (8.5-10.1); CARBON DIOXIDE 22 MMOL/L (21-32); CHLORIDE 111 MMOL/L (98-107); GFR ESTIMATED > 60; GLUCOSE 122 MG/DL (70-105); POTASSIUM 3.9 MMOL/L (3.6-5.0); SODIUM 142 MMOL/L (135-145); TOTAL PROTEIN 6.1 GM/DL (6.4-8.2)
[2016-11-23 09:11] LABS: BASOPHILS % (AUTO) 0 % (0-10); EOSINOPHILS # (AUTO) 0.1 10^3/uL (0.0-0.3); EOSINOPHILS % (AUTO) 4 % (0-10); LYMPHOCYTES # (AUTO) 0.7 X 10^3 (1.0-4.0); LYMPHOCYTES % (AUTO) 25 % (12-44); MEAN CORPUSCULAR HEMOGLOBIN 32 PG (25-34); MEAN CORPUSCULAR HGB CONC 34 G/DL (32-36); MEAN CORPUSCULAR VOLUME 96 FL (80-99); MEAN PLATELET VOLUME 9.3 FL (7.4-10.4); MONOCYTES # (AUTO) 0.7 X 10^3 (0.0-1.0); MONOCYTES % (AUTO) 24 % (0-12); NEUTROPHILS # (AUTO) 1.3 X 10^3 (1.8-7.8); NEUTROPHILS % (AUTO) 46 % (42-75); PLATELET COUNT 77 10^3/uL (130-400); RED BLOOD COUNT 3.58 10^6/uL (4.35-5.85); RED CELL DISTRIBUTION WIDTH 14.7 % (10.0-14.5); WHITE BLOOD COUNT 2.7 10^3/uL (4.3-11.0)
[2016-11-23 09:33] LABS: ANION GAP 11 MMOL/L (5-14); BLOOD UREA NITROGEN 14 MG/DL (7-18); BUN/CREATININE RATIO 18; CALCIUM 9.3 MG/DL (8.5-10.1); CARBON DIOXIDE 19 MMOL/L (21-32); CHLORIDE 112 MMOL/L (98-107); GFR ESTIMATED > 60; GLUCOSE 96 MG/DL (70-105); POTASSIUM 3.9 MMOL/L (3.6-5.0); SODIUM 142 MMOL/L (135-145)
[2016-11-29 08:48] LABS: BASOPHILS % (AUTO) 1 % (0-10); EOSINOPHILS # (AUTO) 0.1 10^3/uL (0.0-0.3); EOSINOPHILS % (AUTO) 1 % (0-10); LYMPHOCYTES # (AUTO) 0.7 X 10^3 (1.0-4.0); LYMPHOCYTES % (AUTO) 18 % (12-44); MEAN CORPUSCULAR HEMOGLOBIN 33 PG (25-34); MEAN CORPUSCULAR HGB CONC 34 G/DL (32-36); MEAN CORPUSCULAR VOLUME 96 FL (80-99); MEAN PLATELET VOLUME 10.4 FL (7.4-10.4); MONOCYTES # (AUTO) 0.5 X 10^3 (0.0-1.0); MONOCYTES % (AUTO) 14 % (0-12); NEUTROPHILS # (AUTO) 2.5 X 10^3 (1.8-7.8); NEUTROPHILS % (AUTO) 66 % (42-75); PLATELET COUNT 52 10^3/uL (130-400); RED CELL DISTRIBUTION WIDTH 15.5 % (10.0-14.5); WHITE BLOOD COUNT 3.7 10^3/uL (4.3-11.0)
[2016-11-29 09:12] LABS: ALANINE AMINOTRANSFERASE 25 U/L (0-55); ALBUMIN 3.7 GM/DL (3.2-4.5); ANION GAP 8 MMOL/L (5-14); ASPARTATE AMINO TRANSFERASE 33 U/L (5-34); BILIRUBIN,TOTAL 0.8 MG/DL (0.1-1.0); BLOOD UREA NITROGEN 10 MG/DL (7-18); BUN/CREATININE RATIO 13; CALCIUM 9.8 MG/DL (8.5-10.1); CARBON DIOXIDE 26 MMOL/L (21-32); CHLORIDE 109 MMOL/L (98-107); CREATININE SERUM 0.76 MG/DL (0.60-1.30); GFR ESTIMATED > 60; GLUCOSE 97 MG/DL (70-105); POTASSIUM 3.6 MMOL/L (3.6-5.0); SODIUM 143 MMOL/L (135-145); TOTAL PROTEIN 6.5 GM/DL (6.4-8.2)
[~2016-12-06] VITALS: Ht 172.7 cm; Wt 70.8 kg
[~2016-12-06 08:21] MED LIST changes: +D5W 500 ML IV (CANCER CTR) 500 ML IV SCH; +FAMOTIDINE 20MG/2ML IV (CANCER CTR) IV SCH; +FERRIC CARBOXYMALTOSE (CANCER) 750 MG in NS (IVPB) CANCER CENTER 250 ML IV SCH; +FLUOROURACIL 700 MG in SYRINGE-IVPB 1 SYRINGE IV SCH; +FLUOROURACIL IV SCH; +FOSAPREPITANT 150 MG/NS 150 MG IVPB (CANCER CTR) IV PRN; +LEUCOVORIN CALCIUM 700 MG in D5W 250 ML IVPB (CANCER CTR) 250 ML IV SCH; +LEUCOVORIN CALCIUM IV SCH; +NS IV SCH; +ONDANSETRON 16 MG, DEXAMETHASONE 10 MG/NS 50 ML IVPB IV SCH; +OXALIPLATIN 100 MG, OXALIPLATIN (GENERIC) 30 MG in D5W 250 ML IVPB (CANCER CTR) 250 ML IV SCH; +OXALIPLATIN 100 MG, OXALIPLATIN (GENERIC) 40 MG in D5W 250 ML IVPB (CANCER CTR) 250 ML IV SCH; +OXALIPLATIN 100 MG, OXALIPLATIN (GENERIC) 50 MG in D5W 250 ML IVPB (CANCER CTR) 250 ML IV SCH; +PALONOSETRON 0.25 MG, DEXAMETHASONE 10 MG/NS 50 ML IVPB IV PRN; +[UNRECOGNIZED DRUG - OTHER] IV SCH; +diphenhydrAMINE 25 MG TAB (BENADRYL) CANCER CENTER PO SCH
[2016-12-06 08:57] LABS: BASOPHILS % (AUTO) 0 % (0-10); EOSINOPHILS # (AUTO) 0.1 10^3/uL (0.0-0.3); EOSINOPHILS % (AUTO) 1 % (0-10); LYMPHOCYTES # (AUTO) 0.7 X 10^3 (1.0-4.0); LYMPHOCYTES % (AUTO) 20 % (12-44); MEAN CORPUSCULAR HEMOGLOBIN 33 PG (25-34); MEAN CORPUSCULAR HGB CONC 34 G/DL (32-36); MEAN CORPUSCULAR VOLUME 97 FL (80-99); MEAN PLATELET VOLUME 9.5 FL (7.4-10.4); MONOCYTES # (AUTO) 0.6 X 10^3 (0.0-1.0); MONOCYTES % (AUTO) 16 % (0-12); NEUTROPHILS # (AUTO) 2.2 X 10^3 (1.8-7.8); NEUTROPHILS % (AUTO) 62 % (42-75); PLATELET COUNT 81 10^3/uL (130-400); RED BLOOD COUNT 3.76 10^6/uL (4.35-5.85); RED CELL DISTRIBUTION WIDTH 15.4 % (10.0-14.5); WHITE BLOOD COUNT 3.6 10^3/uL (4.3-11.0)
[2016-12-06 09:29] LABS: ALANINE AMINOTRANSFERASE 18 U/L (0-55); ALBUMIN 3.5 GM/DL (3.2-4.5); ANION GAP 6 MMOL/L (5-14); ASPARTATE AMINO TRANSFERASE 27 U/L (5-34); BILIRUBIN,TOTAL 0.6 MG/DL (0.1-1.0); BLOOD UREA NITROGEN 10 MG/DL (7-18); BUN/CREATININE RATIO 13; CALCIUM 9.2 MG/DL (8.5-10.1); CARBON DIOXIDE 24 MMOL/L (21-32); CHLORIDE 111 MMOL/L (98-107); CREATININE SERUM 0.76 MG/DL (0.60-1.30); GFR ESTIMATED > 60; GLUCOSE 111 MG/DL (70-105); POTASSIUM 3.7 MMOL/L (3.6-5.0); SODIUM 141 MMOL/L (135-145)
== END 2016-12-13 | disposition home or self-care (01) ==
LOC: ONC 08:21
PROVIDERS: ATTEND Internal Medicine Hematology & Oncology
DX: Z51.11 Encounter for antineoplastic chemotherapy (principal); C18.7 Malignant neoplasm of sigmoid colon; D50.9 Iron deficiency anemia, unspecified; Z87.891 Personal history of nicotine dependence
CPT/HCPCS: 36415; 36591; 80048; 80053; 85025; 96367; 96368; 96375; 96411; 96413; 96415; 96521

== ENCOUNTER → 2017-03-25 | Outpatient (CLI) | payer BC, MEDICARE ==
[~2017-03-25] MED LIST changes: +ACHD5005 PO; -D5W 500 ML IV (CANCER CTR) 500 ML IV SCH; -FAMOTIDINE 20MG/2ML IV (CANCER CTR) IV SCH; -FERRIC CARBOXYMALTOSE (CANCER) 750 MG in NS (IVPB) CANCER CENTER 250 ML IV SCH; -FLUOROURACIL 700 MG in SYRINGE-IVPB 1 SYRINGE IV SCH; -FLUOROURACIL IV SCH; -FOSAPREPITANT 150 MG/NS 150 MG IVPB (CANCER CTR) IV PRN; -HYDR-3812 PO; -LEUCOVORIN CALCIUM 700 MG in D5W 250 ML IVPB (CANCER CTR) 250 ML IV SCH; -LEUCOVORIN CALCIUM IV SCH; -NS IV SCH; -ONDANSETRON 16 MG, DEXAMETHASONE 10 MG/NS 50 ML IVPB IV SCH; -OXALIPLATIN 100 MG, OXALIPLATIN (GENERIC) 30 MG in D5W 250 ML IVPB (CANCER CTR) 250 ML IV SCH; -OXALIPLATIN 100 MG, OXALIPLATIN (GENERIC) 40 MG in D5W 250 ML IVPB (CANCER CTR) 250 ML IV SCH; -OXALIPLATIN 100 MG, OXALIPLATIN (GENERIC) 50 MG in D5W 250 ML IVPB (CANCER CTR) 250 ML IV SCH; -PALONOSETRON 0.25 MG, DEXAMETHASONE 10 MG/NS 50 ML IVPB IV PRN; -[UNRECOGNIZED DRUG - OTHER] IV SCH; -diphenhydrAMINE 25 MG TAB (BENADRYL) CANCER CENTER PO SCH
[2017-03-25] MEDS: GADOXETATE 2.5 MMOL/10 ML (EOVIST) IV ONE (10:08)
--- NOTE | 2017-03-25 11:56 | Diagnostic Imaging Report ---
PROCEDURE: MR imaging abdomen with and without contrast. TECHNIQUE: Multiplanar, multisequence MR imaging of the abdomen was performed with and without contrast. INDICATION: Colorectal carcinoma. FINDINGS: The CT chest, abdomen, and pelvis exam performed on 03/17/2017 noted a 1.8 cm hypodense lesion with enhancement in the right hepatic lobe. This did seem more prominent than on the prior exam of 08/17/2016. On this exam, that lesion is again identified on the T2 series as a hyperintense fairly well-circumscribed area. On the 20-minute delayed image, this represents a hypointense lesion. I do suspect that this is a benign process. The CT abdomen and pelvis exam also identified a 2.1 cm exophytic mass along the posterior aspect of the right kidney. This is slightly hypointense on the T2 series but also shows as a hypointense lesion on the 20-minute delayed image. Consequently, I am not convinced that this is a cystic mass. I do suspect that it is benign as this finding is unchanged when compared to the previous PET/CT exam of 06/15/2016. This lesion was not hypermetabolic on the PET/CT exam. There was no hypermetabolic activity within the liver on the PET/CT exam either. There is a benign-appearing cyst in the left lobe of the liver. This is unchanged when compared to the previous studies. IMPRESSION: 1. The lesion in the right lobe of the liver is most likely a benign process. The soft tissue density along the posterior aspect of the right kidney is not clearly a cyst but may well be benign as well. A short-term (three-month) followup CT abdomen/pelvis exam would be recommended for further study. 2. There is no other abnormal finding to suggest neoplastic disease. Dictated on workstation # [id number]
== END ==
LOC: RAD 09:35
PROVIDERS: ATTEND Internal Medicine Hematology & Oncology
DX: C18.7 Malignant neoplasm of sigmoid colon (principal); K76.9 Liver disease, unspecified; N28.89 Other specified disorders of kidney and ureter
CPT/HCPCS: 74183

== ENCOUNTER 2017-03-28 15:30 | Outpatient (RCR) | payer MEDICARE ==
[2017-01-03 09:10] LABS: BASOPHILS % (AUTO) 1 % (0-10); EOSINOPHILS # (AUTO) 0.3 10^3/uL (0.0-0.3); EOSINOPHILS % (AUTO) 7 % (0-10); HEMATOCRIT 38 % (35-52); LYMPHOCYTES # (AUTO) 0.8 X 10^3 (1.0-4.0); LYMPHOCYTES % (AUTO) 19 % (12-44); MEAN CORPUSCULAR HEMOGLOBIN 33 PG (25-34); MEAN CORPUSCULAR HGB CONC 34 G/DL (32-36); MEAN CORPUSCULAR VOLUME 97 FL (80-99); MEAN PLATELET VOLUME 9.6 FL (7.4-10.4); MONOCYTES # (AUTO) 0.4 X 10^3 (0.0-1.0); MONOCYTES % (AUTO) 10 % (0-12); NEUTROPHILS # (AUTO) 2.6 X 10^3 (1.8-7.8); NEUTROPHILS % (AUTO) 63 % (42-75); PLATELET COUNT 104 10^3/uL (130-400); RED BLOOD COUNT 3.97 10^6/uL (4.35-5.85); RED CELL DISTRIBUTION WIDTH 13.3 % (10.0-14.5); WHITE BLOOD COUNT 4.1 10^3/uL (4.3-11.0)
[2017-01-03 09:28] LABS: ALANINE AMINOTRANSFERASE 19 U/L (0-55); ALBUMIN 3.8 GM/DL (3.2-4.5); ALKALINE PHOSPHATASE 120 U/L (40-136); BILIRUBIN,TOTAL 0.6 MG/DL (0.1-1.0); BUN/CREATININE RATIO 15; CALCIUM 9.6 MG/DL (8.5-10.1); CARBON DIOXIDE 24 MMOL/L (21-32); CHLORIDE 111 MMOL/L (98-107); CREATININE SERUM 0.73 MG/DL (0.60-1.30); GFR ESTIMATED > 60; GLUCOSE 122 MG/DL (70-105); POTASSIUM 3.7 MMOL/L (3.6-5.0); SODIUM 141 MMOL/L (135-145); TOTAL PROTEIN 6.4 GM/DL (6.4-8.2)
[2017-03-17 09:10] LABS: BASOPHILS % (AUTO) 0 % (0-10); EOSINOPHILS # (AUTO) 0.2 10^3/uL (0.0-0.3); EOSINOPHILS % (AUTO) 4 % (0-10); HEMATOCRIT 39 % (35-52); HEMOGLOBIN 13.6 G/DL (11.5-16.0); LYMPHOCYTES # (AUTO) 1.1 X 10^3 (1.0-4.0); LYMPHOCYTES % (AUTO) 22 % (12-44); MEAN CORPUSCULAR HEMOGLOBIN 32 PG (25-34); MEAN CORPUSCULAR HGB CONC 35 G/DL (32-36); MEAN CORPUSCULAR VOLUME 92 FL (80-99); MEAN PLATELET VOLUME 9.2 FL (7.4-10.4); MONOCYTES # (AUTO) 0.5 X 10^3 (0.0-1.0); MONOCYTES % (AUTO) 9 % (0-12); NEUTROPHILS # (AUTO) 3.2 X 10^3 (1.8-7.8); NEUTROPHILS % (AUTO) 65 % (42-75); PLATELET COUNT 143 10^3/uL (130-400); RED BLOOD COUNT 4.29 10^6/uL (4.35-5.85); RED CELL DISTRIBUTION WIDTH 12.4 % (10.0-14.5); WHITE BLOOD COUNT 4.9 10^3/uL (4.3-11.0)
[2017-03-17 09:36] LABS: ALANINE AMINOTRANSFERASE 19 U/L (0-55); ALKALINE PHOSPHATASE 83 U/L (40-136); BILIRUBIN,TOTAL 0.9 MG/DL (0.1-1.0); BUN/CREATININE RATIO 15; CALCIUM 9.5 MG/DL (8.5-10.1); CARBON DIOXIDE 22 MMOL/L (21-32); CHLORIDE 110 MMOL/L (98-107); CREATININE SERUM 0.75 MG/DL (0.60-1.30); GFR ESTIMATED > 60; GLUCOSE 91 MG/DL (70-105); POTASSIUM 4.3 MMOL/L (3.6-5.0); SODIUM 142 MMOL/L (135-145); TOTAL PROTEIN 6.3 GM/DL (6.4-8.2)
== END 2017-04-03 | disposition home or self-care (01) ==
LOC: ONC 15:30
PROVIDERS: ATTEND Internal Medicine Hematology & Oncology
DX: C18.7 Malignant neoplasm of sigmoid colon (principal); D50.9 Iron deficiency anemia, unspecified; Z87.891 Personal history of nicotine dependence; Z45.2 Encounter for adjustment and management of vascular access device
CPT/HCPCS: 36591; 80053; 82378; 85025; 96523; 99213

== ENCOUNTER → 2017-05-24 | Outpatient (CLI) | payer BC, MEDICARE ==
[~2017-05-24] MED LIST changes: +BARIUM SUSPENSION 2.1% (VANILLA SILQ) 450 ML PO ONE; +CATHETER FLUSH 10 ML SYR IV PRN; +IOHEXOL 350 MG/ML 100 ML (OMNIPAQUE 350) VIAL IV ONE; +NS 250 ML (IVPB) BAG IV ONE
--- NOTE | 2017-05-24 13:16 | Diagnostic Imaging Report ---
PROCEDURE: CT chest with contrast, CT abdomen and pelvis with and without contrast. TECHNIQUE: Pre and post intravenous contrast axial imaging of the abdomen and pelvis and post contrast axial imaging of the chest were performed. INDICATION: Sharp left lower quadrant pain. COMPARISON: Comparison is made with prior exam from 03/17/2017. CT chest: FINDINGS: Thyroid goiter is again noted and similar to prior exam. There is a right chest wall port which has its tip in the superior vena cava. No axillary lymphadenopathy is identified. No definite mediastinal or hilar lymphadenopathy is seen. There is no pericardial or pleural fluid detected. A small nodule in the right lower lobe, image 35, appears stable when compared with prior exam. No new or enlarging pulmonary nodules are seen. IMPRESSION: Stable CT chest when compared with exam from 03/17/2017. CT abdomen and pelvis: FINDINGS: Several low-density lesions throughout the liver appear stable and consistent with cysts. The enhancing lesion in the peripheral right lobe is stable at approximately 16 mm. The gallbladder is unremarkable. The pancreas and spleen are unremarkable. No adrenal mass is seen. Cortical renal cysts are again noted. The enhancing lesion in the posterior aspect of the right kidney remains stable at 21 mm. The aorta is calcified but nonaneurysmal. The visualized small and large bowel loops are normal caliber. No acute inflammatory process is seen. There are postsurgical changes in the right lower quadrant as well as the in region of the rectum. There is moderate free fluid in the pelvis, similar to prior exam. Uterus and bladder are unremarkable. No pelvic lymphadenopathy is seen. The bony structures are nonacute. IMPRESSION: Overall stable CT of the abdomen and pelvis when compared with prior exam from 03/17/2017. No acute finding is seen. There is some free fluid in the pelvis, similar to prior exam. The right renal mass is stable. Results were called to Dr. Bose's office prior to this dictation. Dictated by: Dictated on workstation # [id number]
== END ==
LOC: RAD 11:02
PROVIDERS: ATTEND Internal Medicine Hematology & Oncology
DX: C18.7 Malignant neoplasm of sigmoid colon (principal)
CPT/HCPCS: 71260; 74178

== ENCOUNTER 2017-08-12 12:47 | Outpatient (CLI) | payer BC, MEDICARE ==
[~2017-08-12] VITALS: Ht 172.7 cm; Wt 74.8 kg
[~2017-08-12 12:47] MED LIST changes: -BARIUM SUSPENSION 2.1% (VANILLA SILQ) 450 ML PO ONE; -CATHETER FLUSH 10 ML SYR IV PRN; -IOHEXOL 350 MG/ML 100 ML (OMNIPAQUE 350) VIAL IV ONE; -NS 250 ML (IVPB) BAG IV ONE
== END 2017-08-12 14:40 ==
LOC: PREOP 12:47
PROVIDERS: ATTEND Surgery
DX: Z01.818 Encounter for other preprocedural examination (principal); Z85.038 Personal history of other malignant neoplasm of large intestine

== ENCOUNTER 2017-08-16 07:10 | Day surgery (SDC) | payer BC, MEDICARE ==
[~2017-08-16] VITALS: Ht 172.7 cm; Wt 74.8 kg
[2017-08-16] MEDS ORDERED: LACTATED RINGERS 1,000 ML IV ONE (07:11)
[2017-08-16] MEDS ORDERED: PROPOFOL INJECTION 50 ML IV ONE (07:24)
[2017-08-16] MEDS ORDERED: LACTATED RINGERS 1,000 ML IV STA (07:44)
[2017-08-16 07:47] VITALS: BP 134/68
--- NOTE | 2017-08-16 08:38 | Progress Note-Pre Operative ---
Pre-Operative Progress Note H&P Reviewed The H&P was reviewed, patient examined and no changes noted. Date Seen by Provider: August 16, 2017 Time Seen by Provider: 08:33 Date H&P Reviewed: August 16, 2017 Time H&P Reviewed: 08:33 Pre-Operative Diagnosis: history colon cancer MARICHUY GILL DO August 16, 2017 08:38
--- NOTE | 2017-08-16 09:14 | Discharge Inst-Simple/Standard ---
Discharge Inst-Standard Patient Instructions/Follow Up Plan of Care/Instructions/FU: Repeat colonoscopy 1 year, if any problems before that be seen at that time. Activity as Tolerated: Yes Discharge Diet: Regular Diet MARICHUY GILL DO August 16, 2017 09:14
[2017-08-16 09:30] VITALS: BP 101/58
[2017-08-16 10:00] VITALS: BP 127/72
[2017-08-16 10:15] VITALS: BP 127/72
--- NOTE | 2017-08-16 11:47 | Anesthesia-General Post-Op ---
MAC Patient Condition Mental Status/LOC: Same as Preop Cardiovascular: Satisfactory Nausea/Vomiting: Absent Respiratory: Satisfactory Pain: Controlled Complications: Absent Post Op Complications Complications None Follow Up Care/Instructions Patient Instructions None needed. Anesthesiology Discharge Order Discharge Order Patient is doing well, no complaints, stable vital signs, no apparent adverse anesthesia problems. No complications reported per nursing. EM ZAVALETA CRNA August 16, 2017 11:47
--- NOTE | 2017-08-16 14:38 | OPERATIVE REPORT ---
DATE OF SERVICE: 08/16/2017 PREOPERATIVE DIAGNOSIS: History of colon cancer. POSTOPERATIVE DIAGNOSIS: Normal colon. PROCEDURE: Colonoscopy. SURGEON: Marichuy Gabriel DO ANESTHESIA: Per SUPPORT ASSOCIATE. ESTIMATED BLOOD LOSS: None. COMPLICATIONS: None. INDICATIONS: The patient with 2 recent colon cancers and has had colon resections. She understands risks and benefits of procedure and wished to proceed with procedure. Consent was signed in the chart. DESCRIPTION OF PROCEDURE: The patient was taken to the endoscopy suite, placed in left lower recumbent position. Timeout was performed. Digital rectal exam was performed. There were no palpable polyps, mass or ulcerations. The scope was inserted in the rectum and advanced all the way to the ileocolonic anastomosis. There are no polyps, mass or ulcerations. The scope was then slowly retracted back. There are no polyps, mass or ulcerations at the anastomosis, none in the transverse colon. Scope was continuously retracted back noting no polyps, mass or ulcerations within the descending and sigmoid colon. Once in the rectum, scope was also retroflexed noting no other pathology. The distal anastomosis was visualized with no other pathology as well. Scope was slowly retracted back to completely remove. The patient tolerated the procedure well without any complications. She was taken to recovery room in stable condition. RECOMMENDATIONS: Would recommend repeat colonoscopy in one year for continued surveillance. Job ID: [id number] DocumentID: [id number] Dictated Date: 08/16/2017 09:20:51 Federal Appellate Clerk Date: 08/16/2017 14:37:20 Dictated By: MARICHUY GABRIEL DO
== END 2017-08-16 10:15 | disposition home or self-care (01) ==
LOC: ENDO 07:10
PROVIDERS: ATTEND Surgery
DX: Z08 Encounter for follow-up examination after completed treatment for malignant neoplasm (principal); Z85.038 Personal history of other malignant neoplasm of large intestine; Z87.891 Personal history of nicotine dependence

== ENCOUNTER 2017-11-15 10:48 | Outpatient (RCR) | payer BC, MEDICARE ==
[2017-08-24 13:18] LABS: BASOPHILS % (AUTO) 0 % (0-10); EOSINOPHILS # (AUTO) 0.2 10^3/uL (0.0-0.3); EOSINOPHILS % (AUTO) 4 % (0-10); HEMATOCRIT 36 % (35-52); HEMOGLOBIN 12.8 G/DL (11.5-16.0); LYMPHOCYTES # (AUTO) 0.9 X 10^3 (1.0-4.0); LYMPHOCYTES % (AUTO) 20 % (12-44); MEAN CORPUSCULAR HEMOGLOBIN 32 PG (25-34); MEAN CORPUSCULAR HGB CONC 36 G/DL (32-36); MEAN CORPUSCULAR VOLUME 91 FL (80-99); MEAN PLATELET VOLUME 9.2 FL (7.4-10.4); MONOCYTES # (AUTO) 0.4 X 10^3 (0.0-1.0); MONOCYTES % (AUTO) 9 % (0-12); NEUTROPHILS # (AUTO) 3.1 X 10^3 (1.8-7.8); NEUTROPHILS % (AUTO) 67 % (42-75); PLATELET COUNT 156 10^3/uL (130-400); RED BLOOD COUNT 3.99 10^6/uL (4.35-5.85); RED CELL DISTRIBUTION WIDTH 12.2 % (10.0-14.5); WHITE BLOOD COUNT 4.6 10^3/uL (4.3-11.0)
[2017-08-24 13:43] LABS: ALANINE AMINOTRANSFERASE 15 U/L (0-55); ALBUMIN 3.8 GM/DL (3.2-4.5); ALKALINE PHOSPHATASE 68 U/L (40-136); BILIRUBIN,TOTAL 0.6 MG/DL (0.1-1.0); BUN/CREATININE RATIO 14; CARBON DIOXIDE 24 MMOL/L (21-32); CHLORIDE 114 MMOL/L (98-107); CREATININE SERUM 0.76 MG/DL (0.60-1.30); GFR ESTIMATED > 60; GLUCOSE 103 MG/DL (70-105); POTASSIUM 3.9 MMOL/L (3.6-5.0); SODIUM 144 MMOL/L (135-145); TOTAL PROTEIN 6.3 GM/DL (6.4-8.2)
[2017-11-15 10:08] LABS: ALANINE AMINOTRANSFERASE 19 U/L (0-55); ALBUMIN 3.9 GM/DL (3.2-4.5); ALKALINE PHOSPHATASE 59 U/L (40-136); BILIRUBIN,TOTAL 0.7 MG/DL (0.1-1.0); BUN/CREATININE RATIO 15; CALCIUM 9.6 MG/DL (8.5-10.1); CARBON DIOXIDE 22 MMOL/L (21-32); CHLORIDE 111 MMOL/L (98-107); CREATININE SERUM 0.79 MG/DL (0.60-1.30); GFR ESTIMATED > 60; GLUCOSE 123 MG/DL (70-105); POTASSIUM 3.9 MMOL/L (3.6-5.0); SODIUM 142 MMOL/L (135-145); TOTAL PROTEIN 6.3 GM/DL (6.4-8.2)
[2017-11-15 10:34] LABS: BASOPHILS % (AUTO) 0 % (0-10); EOSINOPHILS # (AUTO) 0.1 10^3/uL (0.0-0.3); EOSINOPHILS % (AUTO) 3 % (0-10); HEMATOCRIT 37 % (35-52); LYMPHOCYTES # (AUTO) 0.9 X 10^3 (1.0-4.0); LYMPHOCYTES % (AUTO) 18 % (12-44); MEAN CORPUSCULAR HEMOGLOBIN 32 PG (25-34); MEAN CORPUSCULAR HGB CONC 35 G/DL (32-36); MEAN CORPUSCULAR VOLUME 91 FL (80-99); MEAN PLATELET VOLUME 9.3 FL (7.4-10.4); MONOCYTES # (AUTO) 0.5 X 10^3 (0.0-1.0); MONOCYTES % (AUTO) 10 % (0-12); NEUTROPHILS # (AUTO) 3.3 X 10^3 (1.8-7.8); NEUTROPHILS % (AUTO) 69 % (42-75); PLATELET COUNT 151 10^3/uL (130-400); RED BLOOD COUNT 4.08 10^6/uL (4.35-5.85); RED CELL DISTRIBUTION WIDTH 12.2 % (10.0-14.5); WHITE BLOOD COUNT 4.8 10^3/uL (4.3-11.0)
== END 2017-11-22 | disposition home or self-care (01) ==
LOC: ONC 10:48
PROVIDERS: ATTEND Internal Medicine Hematology & Oncology
DX: C18.7 Malignant neoplasm of sigmoid colon (principal); C18.2 Malignant neoplasm of ascending colon; D50.9 Iron deficiency anemia, unspecified; K59.00 Constipation, unspecified; Z90.49 Acquired absence of other specified parts of digestive tract; Z87.891 Personal history of nicotine dependence; Z45.2 Encounter for adjustment and management of vascular access device
CPT/HCPCS: 36591; 80053; 82378; 85025; 96523

== ENCOUNTER → 2017-11-25 | Outpatient (CLI) | payer BC, MEDICARE ==
--- NOTE | 2017-11-25 12:58 | Diagnostic Imaging Report ---
INDICATION: Routine screening. No prior mammograms are available for comparison. 2-D and 3-D bilateral screening mammography was performed with a Computer Aided Detection (CAD) system. FINDINGS: Both breasts are heterogeneously dense, limiting the sensitivity of mammography. Bilateral breast calcifications are seen. Calcifications on the right may be secondary to calcifications within involuting fibroadenomas. There is an area of slightly nodular increased density in the superior left breast on MLO view at mid depth. No definite correlate on the CC view is identified. Additional views are recommended. This may represent superimposition. A second area of nodularity is identified inferiorly in the left breast on MLO view. No correlate on the CC view is identified for this density either. Additional views are recommended. IMPRESSION: Left breast nodular densities. Additional views including spot compression and mediolateral views are recommended for further evaluation. ACR BI-RADS Category 0: Incomplete. (Needs additional imaging evaluation). Result letter will be mailed to the patient. Note: At least 10% of breast cancer is not imaged by mammography. Dictated by: Dictated on workstation # [id number]
== END ==
LOC: RAD 07:26
PROVIDERS: ATTEND Internal Medicine Hematology & Oncology
DX: Z12.31 Encounter for screening mammogram for malignant neoplasm of breast (principal); R92.2 Inconclusive mammogram
CPT/HCPCS: 77067

== ENCOUNTER → 2017-11-30 | Outpatient (CLI) | payer BC, MEDICARE ==
--- NOTE | 2017-11-30 19:24 | Diagnostic Imaging Report ---
INDICATION: Left breast densities. Patient presents for additional views. COMPARISON: Correlation is made with screening mammogram from 11/25/2017. FINDINGS: 2D and 3D lateral left diagnostic mammography was performed including spot compression, ML and MLO views as well as a conventional 90 degree lateral view. The area of density in the inferior left breast appears to resolve with additional views. No underlying mass is identified. There is some mild residual density in the superior left breast with additional views. A discrete mass is not seen but ultrasound of this area is recommended. No suspicious calcifications are identified. IMPRESSION: BI-RADS 0 Mild residual density in the superior left breast with additional views. Further evaluation of the superior left breast, 7-8 cm from the nipple, is recommended for further evaluation and will be performed today. Dictated by: Dictated on workstation # [id number]
--- NOTE | 2017-11-30 19:33 | Diagnostic Imaging Report ---
INDICATION: Persistent density in the superior left breast. This study was performed for further evaluation. COMPARISON: Correlation is made with diagnostic mammogram earlier the same day and screening mammogram from 11/25/2017. FINDINGS: Sonographic interrogation of the superior left breast was performed. No sonographic abnormality is seen. No solid or cystic mass is detected. IMPRESSION: BI-RADS 1 No sonographic abnormality is identified. The patient may return to routine annual screening mammography. Dictated by: Dictated on workstation # [id number]
== END ==
LOC: RAD 12:43
PROVIDERS: ATTEND Internal Medicine Hematology & Oncology
DX: R92.2 Inconclusive mammogram (principal)
CPT/HCPCS: 76642

== ENCOUNTER 2018-02-08 05:38 | Inpatient (IN) | payer BC, MEDICARE ==
[~2018-02-08] VITALS: Ht 177.8 cm; Wt 79.0 kg
[2018-02-08] MEDS ORDERED: NS IV 1000 ML 1,000 ML IV SCH (05:41)
[2018-02-08] MEDS ORDERED: fentaNYL INJECTION 100 MCG/2 ML AMP IVP ONE ×2 (05:45→06:00)
[2018-02-08] MEDS ORDERED: ONDANSETRON 4 MG/2 ML (SDV) Z0FRAN IVP ONE (05:45)
--- NOTE | 2018-02-08 05:54 | ED Abdominal Pain ---
General Stated Complaint: ABD PAIN Source of Information: Patient, Other (neighbor and RN for her Oncologist) Exam Limitations: No Limitations (SUSAN SUAREZ) History of Present Illness Date Seen by Provider: Feb 08, 2018 Time Seen by Provider: 05:33 Initial Comments The patient presents to ER by private conveyance with the chief complaint that since about 9:00 last night she was having some diffuse abdominal pain. She says she has a history of colon cancer and thinks it might be related to that. She's been nauseated and vomiting as well as belching all night. The pain is progressively gotten worst weren't severe got her on the floor and had to call for help from a neighbor who also happens to be the nurse for her oncologist Dr. RANDALL. Her last bowel movement was at 1800 yesterday. Since that time she's not been able to pass flatus or stool. Her general surgeon Dr. Gabriel has also placed a power port. She is not having any shortness of breath or chest pain. She denies any history of coronary artery disease, hypertension, smoking, diabetes, hypercholesterolemia, thyroid disorder. Pain is worse with movement. She's not taken anything that has made it better. She denies any other significant medical history. She does not take blood thinners or antiplatelets. Prior to a year ago the patient had no abdominal surgeries but she was in [place] at [place] on a business trip when she had severe pain and had this colon cancer discovered. At that time they did a surgical resection. After that she came back home and apparently Dr. Gabriel to do one other small resection. She's not had any other abdominal surgeries. (SUSAN SUAREZ) Allergies and Home Medications Allergies Coded Allergies: No Known Drug Allergies (Unverified , 06/17/16) Patient Home Medication List Home Medication List Reviewed: Yes (SUSAN SUAREZ) Review of Systems Review of Systems Constitutional: No chills, No diaphoresis, No fever EENTM: No Blurred Vision, No Double Vision Respiratory: Denies Cough, Denies Shortness of Air Cardiovascular: Denies Chest Pain, Denies Edema Gastrointestinal: See HPI, Abdominal Pain; Denies Constipated, Denies Diarrhea ; Nausea, Vomiting Genitourinary: Denies Burning, Denies Discharge Musculoskeletal: No back pain, No joint pain Skin: No change in color, No pruritus Psychiatric/Neurological: Denies Headache, Denies Numbness (SUSAN SUAREZ) Past Bxdufyy-Jaxqcb-Nuizwz Hx Patient Social History Alcohol Use: Denies Use Recreational Drug Use: No Smoking Status: Former Smoker Type Used: Cigarettes Former Smoker, Quit: Jun 17, 1977 Recent Foreign Travel: No Contact w/Someone Who Travel: No Recent Hopitalizations: No (SUSAN SUAREZ) Immunizations Up To Date Tetanus Booster (TDap): Unknown PED Vaccines UTD: No Date of Influenza Vaccine: Dec 20, 2015 (SUSAN SUAREZ) Seasonal Allergies Seasonal Allergies: No (SUSAN SUAREZ) Past Medical History Surgeries: Yes (colon resection, port) Abdominal, Adenoidectomy, Tonsillectomy Respiratory: No Currently Using CPAP: No Currently Using BIPAP: No Cardiac: No Neurological: No Reproductive Disorders: No Genitourinary: No Gastrointestinal: Yes (colon cancer) Musculoskeletal: No Endocrine: No HEENT: No Cancer: Yes Colon What Type of Treatment Did You: Chemotherapy, Surgical Intervention Psychosocial: No Integumentary: No Blood Disorders: No (SUSAN SUAREZ) Physical Exam Vital Signs Vital Signs - First Documented 02/08/18 02/08/18 05:38 05:57 Temp 97.2 Pulse 80 Resp 20 B/P (MAP) 156/96 (116) Pulse Ox 100 O2 Delivery Room Air O2 Flow Rate 2.00 (JULIET FRANK MD) Vital Signs Capillary Refill : (SUSAN SUAREZ) Height/Weight/BMI Height: 5'8.00" Weight: 165lbs. 0.0oz. 74.671250dj; 25.1 BMI Method:Stated General Appearance: WD/WN, moderate distress HEENT: PERRL/EOMI, pharynx normal Neck: non-tender, normal inspection Respiratory: chest non-tender, lungs clear, normal breath sounds, no respiratory distress, no accessory muscle use Cardiovascular: normal peripheral pulses, regular rate, rhythm Peripheral Pulses: 2+ Radial Pulses (R), 2+ Radial Pulses (L) Gastrointestinal: normal bowel sounds (active), guarding, tenderness Extremities: non-tender, normal inspection, no pedal edema, normal capillary refill Neurologic/Psychiatric: alert, oriented x 3 Skin: normal color, warm/dry (SUSAN SUAREZ) Focused Exam Lactate Level 02/08/18 05:55: Lactic Acid Level 2.00 (JULIET FRANK MD) Lactic Acid Level Laboratory Tests Test 02/08/18 05:55 Lactic Acid Level 2.00 MMOL/L (0.50-2.00) (JULIET FRANK MD) Progress/Results/Core Measures Results/Orders Lab Results Laboratory Tests Test 02/08/18 05:55 Range/Units White Blood Count 8.9 4.3-11.0 10^3/uL Red Blood Count 4.64 4.35-5.85 10^6/uL Hemoglobin 14.2 11.5-16.0 G/DL Hematocrit 41 35-52 % Mean Corpuscular Volume 89 80-99 FL Mean Corpuscular Hemoglobin 31 25-34 PG Mean Corpuscular Hemoglobin Concent 35 32-36 G/DL Red Cell Distribution Width 12.3 10.0-14.5 % Platelet Count 183 130-400 10^3/uL Mean Platelet Volume 9.4 7.4-10.4 FL Neutrophils (%) (Auto) 82 H 42-75 % Lymphocytes (%) (Auto) 9 L 12-44 % Monocytes (%) (Auto) 8 0-12 % Eosinophils (%) (Auto) 0 0-10 % Basophils (%) (Auto) 0 0-10 % Neutrophils # (Auto) 7.3 1.8-7.8 X 10^3 Lymphocytes # (Auto) 0.8 L 1.0-4.0 X 10^3 Monocytes # (Auto) 0.7 0.0-1.0 X 10^3 Eosinophils # (Auto) 0.0 0.0-0.3 10^3/uL Basophils # (Auto) 0.0 0.0-0.1 10^3/uL Sodium Level 143 135-145 MMOL/L Potassium Level 3.8 3.6-5.0 MMOL/L Chloride Level 109 H 98-107 MMOL/L Carbon Dioxide Level 22 21-32 MMOL/L Anion Gap 12 5-14 MMOL/L Blood Urea Nitrogen 16 7-18 MG/DL Creatinine 0.88 0.60-1.30 MG/DL Estimat Glomerular Filtration Rate > 60 BUN/Creatinine Ratio 18 Glucose Level 156 H 70-105 MG/DL Lactic Acid Level 2.00 0.50-2.00 MMOL/L Calcium Level 10.4 H 8.5-10.1 MG/DL Corrected Calcium 10.1 8.5-10.1 MG/DL Magnesium Level 1.9 1.8-2.4 MG/DL Total Bilirubin 0.9 0.1-1.0 MG/DL Aspartate Amino Transf (AST/SGOT) 22 5-34 U/L Alanine Aminotransferase (ALT/SGPT) 16 0-55 U/L Alkaline Phosphatase 65 40-136 U/L Troponin I < 0.30 <0.30 NG/ML Total Protein 7.0 6.4-8.2 GM/DL Albumin 4.4 3.2-4.5 GM/DL Lipase 18 8-78 U/L (JULIET FRANK MD) My Orders Orders - JULIET FRANK MD Iohexol Injection (Omnipaque 350 Mg/Ml 1 (02/08/18 06:45) Ns (Ivpb) (Sodium Chloride 0.9%) (02/08/18 06:45) Hydromorphone Injection (Dilaudid Inject (02/08/18 07:31) Ng Tube Insert & Assessment (02/08/18 07:38) (JULIET FRANK MD) Medications Given in ED Current Medications Medications Dose Ordered Sig/Rashaun Route Start Time Stop Time Status Last Admin Dose Admin Fentanyl Citrate 75 mcg ONCE ONCE IVP 02/08/18 05:45 02/08/18 05:46 DC 02/08/18 05:50 75 MCG Fentanyl Citrate 75 mcg ONCE ONCE IVP 02/08/18 06:00 02/08/18 06:01 DC 02/08/18 06:00 75 MCG Iohexol 100 ml ONCE ONCE IV 02/08/18 06:45 02/08/18 06:57 DC 02/08/18 06:39 100 ML Ondansetron HCl 4 mg ONCE ONCE IVP 02/08/18 05:45 02/08/18 05:46 DC 02/08/18 05:51 4 MG Sodium Chloride 80 ml ONCE ONCE IV 02/08/18 06:45 02/08/18 06:57 DC 02/08/18 06:39 80 ML (JULIET FRANK MD) Vital Signs/I&O 02/08/18 02/08/18 05:38 05:57 Temp 97.2 Pulse 80 Resp 20 B/P (MAP) 156/96 (116) Pulse Ox 100 97 O2 Delivery Room Air Nasal Cannula O2 Flow Rate 2.00 (JULIET FRANK MD) Progress Progress Note : Time: 05:56 Progress Note Blood cultures, lab, lactate, CT of the abdomen and pelvis with contrast if she can tolerate it. A liter fluids to start. She appears to be rather dry. Obtain magnesium levels since she's been vomiting. (SUSAN SUAREZ) Progress Note : Progress Note History of 605: Assumed care of the patient from Dr. Suarez pending CT. 0625: Patient to CT scan after PowerPort needle placed. Patient is received 2 doses of fentanyl 75 g. This causes drowsiness and some pain relief. To reevaluate after CT results. 0740: Dilaudid 1 mg IV ordered. In order. I did discuss case with Dr. Gabriel and he accepts patient for admission, inpatient status due to new small bowel obstruction and intractable abdominal pain. Agrees with NG tube. Request consult with Dr. Staton. 0745: Did discuss this case with Dr. Staton and she accepts patient in consult. Patient and family informed and agree with plan. (JULIET FRANK MD) Initial ECG Impression Date: Feb 08, 2018 Initial ECG Impression Time: 06:01 Initial ECG Rate: 60 Initial ECG Rhythm: Normal Sinus Comment Sinus rhythm with left anterior fascicular block. No evidence of ST elevation IA. Left axis deviation. No previous available for comparison. Interpreted by me. (JULIET FRANK MD) Diagnostic Imaging Diagonstic Imaging: CT (With contrast) Plain Films/CT/US/NM/MRI: abdomen, pelvis Reviewed: Reviewed by Me (SUSAN SUAREZ) Comments Distal small bowel obstruction with transition point noted in the low pelvis area. Also has renal cystic structure on the right kidney that is larger than previous. Diagonstic Imaging: Xray Plain Films/CT/US/NM/MRI: chest Comments No acute findings Diagonstic Imaging: Xray Plain Films/CT/US/NM/MRI: chest Comments Post-NG tube placement (JULIET FRANK MD) Transfer of Care Time: 06:05 Care transferred to: Dr. Frank (TORSTEN,SUSAN J) Departure Communication (Admissions) Time/Spoke to Admitting Phy: 07:40 Time/Spoke to Consulting Phy: 07:45 (JULIET FRANK MD) Impression Primary Impression: Small bowel obstruction Disposition: ADMITTED INPATIENT Condition: Stable Admissions Decision to Admit Reason: Admit from ER (General) Decision to Admit/Date: Feb 08, 2018 Time/Decision to Admit Time: 07:40 (JULIET FRANK MD) Departure-Patient Inst. Referrals: NO,LOCAL PHYSICIAN (PCP/Family) Primary Care Physician SUSAN SUAREZ Feb 08, 2018 05:54 JULIET FRANK MD Feb 08, 2018 06:29
[2018-02-08 06:05] LABS: BASOPHILS % (AUTO) 0 % (0-10); EOSINOPHILS % (AUTO) 0 % (0-10); HEMATOCRIT 41 % (35-52); HEMOGLOBIN 14.2 G/DL (11.5-16.0); LYMPHOCYTES # (AUTO) 0.8 X 10^3 (1.0-4.0); LYMPHOCYTES % (AUTO) 9 % (12-44); MEAN CORPUSCULAR HEMOGLOBIN 31 PG (25-34); MEAN CORPUSCULAR HGB CONC 35 G/DL (32-36); MEAN CORPUSCULAR VOLUME 89 FL (80-99); MEAN PLATELET VOLUME 9.4 FL (7.4-10.4); MONOCYTES # (AUTO) 0.7 X 10^3 (0.0-1.0); MONOCYTES % (AUTO) 8 % (0-12); NEUTROPHILS # (AUTO) 7.3 X 10^3 (1.8-7.8); NEUTROPHILS % (AUTO) 82 % (42-75); PLATELET COUNT 183 10^3/uL (130-400); RED BLOOD COUNT 4.64 10^6/uL (4.35-5.85); RED CELL DISTRIBUTION WIDTH 12.3 % (10.0-14.5); WHITE BLOOD COUNT 8.9 10^3/uL (4.3-11.0)
[2018-02-08 06:27] LABS: ALANINE AMINOTRANSFERASE 16 U/L (0-55); ALBUMIN 4.4 GM/DL (3.2-4.5); ALKALINE PHOSPHATASE 65 U/L (40-136); BILIRUBIN,TOTAL 0.9 MG/DL (0.1-1.0); BUN/CREATININE RATIO 18; CALCIUM 10.4 MG/DL (8.5-10.1); CARBON DIOXIDE 22 MMOL/L (21-32); CHLORIDE 109 MMOL/L (98-107); CREATININE SERUM 0.88 MG/DL (0.60-1.30); GFR ESTIMATED > 60; GLUCOSE 156 MG/DL (70-105); LIPASE 18 U/L (8-78); MAGNESIUM 1.9 MG/DL (1.8-2.4); POTASSIUM 3.8 MMOL/L (3.6-5.0); SODIUM 143 MMOL/L (135-145)
[2018-02-08] MEDS ORDERED: NS 250 ML (IVPB) BAG IV ONE (06:45)
[2018-02-08] MEDS ORDERED: IOHEXOL 350 MG/ML 100 ML (OMNIPAQUE 350) VIAL IV ONE (06:45)
[2018-02-08] MEDS ORDERED: HYDROmorphone 2 MG/ML VIAL (DILAUDID) IV STA (07:31)
--- OUTSIDE RECORDS SUMMARY | 2018-02-08 08:05 | XMS REPORT | Continuity of Care Document ---
Author Author [facility] Address Unknown Phone Unavailable Allergies Active Description Code Type Severity Reaction Onset Reported/Identified Relationship to Patient Clinical Status Yes No Known Allergies No Known Allergies Drug Allergy Unknown N/A 2016 Medications There is no data. Problems Date Dx Coded Attending Type Code Diagnosis Diagnosed By 04/26/2012 382.00 [employer] ACUTE SUPPURATIVE LEFT EAR 04/26/2012 MARIA ESTHER HESS DO 382.00 [employer] MED[employer] ACUTE SUPPURATIVE LEFT EAR 07/02/2014 MARIA ESTHER HESS DO 465.9 UPPER RESPIRATORY INFECTION 05/13/2016 Jemal Celestin MD C18.7 MALIGNANT NEOPLASM OF SIGMOID COLON 05/13/2016 Jemal Celestin MD D50.0 IRON DEFICIENCY ANEMIA SECONDARY TO BLOOD LOSS (CH 05/13/2016 Jemal Celestin MD K56.69 OTHER INTESTINAL OBSTRUCTION 05/13/2016 Jemal Celestin MD R10.9 UNSPECIFIED ABDOMINAL PAIN Procedures Code Description Performed By Performed On [id number] DILATION OF SIGMOID COLON WITH INTRALUMINAL DEVICE Irineo Gagnon MD 05/13/2016 [id number] EXCISION OF SIGMOID COLON , ENDO, DIAGN Irineo Gagnon MD 05/13/2016 [id number] RESECTION OF SIGMOID COLON , PERCUTANEOUS ENDOSCOPI 05/13/2016 Results Test Result Range [...] 4.00-6.00 RED CELL DISTRIBUTION WIDTH 17.8 % 11.0-15.6 WHITE BLOOD CELL 10.1 k/cumm 5.0-10.0 HEMOGLOBIN [...] mg/dL 0.0-1.0 ALKALINE PHOSPHATASE TOTAL 80 IU/L 45-117 BILI CONJUGATED 0.1 mg/dL 0.0-0.3 LIPASE - [...] 4.00-6.00 RED CELL DISTRIBUTION WIDTH 17.8 % 11.0-15.6 WHITE BLOOD CELL 6.3 k/cumm 5.0-10.0 HEMOGLOBIN [...] 4.00-6.00 RED CELL DISTRIBUTION WIDTH 17.2 % 11.0-15.6 WHITE BLOOD CELL 8.7 k/cumm 5.0-10.0 HEMOGLOBIN [...] 4.00-6.00 RED CELL DISTRIBUTION WIDTH 17.5 % 11.0-15.6 WHITE BLOOD CELL 7.9 k/cumm 5.0-10.0 HEMOGLOBIN [...] 4.00-6.00 RED CELL DISTRIBUTION WIDTH 17.2 % 11.0-15.6 WHITE BLOOD CELL 5.8 k/cumm 5.0-10.0 HEMOGLOBIN [...] 4.00-6.00 RED CELL DISTRIBUTION WIDTH 17.0 % 11.0-15.6 WHITE BLOOD CELL 4.5 k/cumm 5.0-10.0 HEMOGLOBIN [...] 4.00-6.00 RED CELL DISTRIBUTION WIDTH 17.1 % 11.0-15.6 WHITE BLOOD CELL 4.1 k/cumm 5.0-10.0 HEMOGLOBIN [...] Status Pt. Type Provider Facility Loc./Unit Complaint [id number] 07/02/2014 13:59:00 07/02/2014 23:59:59 [facility] Outpatient MARIA ESTHER HESS DO [id number] 04/26/2012 11:07:00 04/26/2012 23:59:59 [facility] Outpatient [id number] 05/13/2016 04:53:00 05/21/2016 16:22:00 DIS Inpatient Fawad GRIMES, [facility] [id number]
--- NOTE | 2018-02-08 08:08 | Diagnostic Imaging Report ---
INDICATION: Abdominal pain. History of colon cancer. TECHNIQUE: Single view chest 6:52 a.m. CORRELATION STUDY: 08/20/2016. FINDINGS: The heart size, mediastinal configuration and pulmonary vascularity are within normal limits. Right IJ Hnecod-w-Ryvc catheter remains in place. Tip at the level of the azygos vein not excluded. Lung mckeon are slightly hyperinflated but overall clear with evidence for infiltrate. IMPRESSION: 1. Negative for acute findings of the chest. Dictated by: Dictated on workstation # [id number]
[2018-02-08 08:30] VITALS: BP 138/88
--- NOTE | 2018-02-08 08:34 | Diagnostic Imaging Report ---
INDICATION: NG tube placement Portable chest 8:12 AM Right IJ Port-A-Cath tip projects over the SVC. NG tube enters the stomach. Heart and mediastinum are normal. Lungs are clear. There are no effusions or pneumothoraces. IMPRESSION: No acute abnormalities in the chest Dictated by: Dictated on workstation # [id number]
[2018-02-08] MEDS ORDERED: NS IV 1000 ML 1,000 ML ONE (08:50)
--- NOTE | 2018-02-08 09:15 | Diagnostic Imaging Report ---
PROCEDURE: CT abdomen and pelvis with contrast. TECHNIQUE: Multiple contiguous axial images were obtained through the abdomen and pelvis after administration of intravenous contrast. INDICATION: Abdominal pain. The previous CT chest, abdomen and pelvis exam of 05/24/2017 failed to show any sign of an acute abnormality. There did appear to be a mass lesion involving the right kidney. This mass seemed stable when compared to the previous studies. On this study that mass is again identified and now measures 2.6 cm as opposed to 2.1 cm previously. Right kidney is otherwise no different in appearance. Both kidneys do show excretion of the contrast. If further evaluation of the lesion along the posterior aspect of the right kidney is desired, MRI would be recommended. In the interval since the prior study, several dilated gas-filled segments of small bowel have developed. This appearance does suggest a partial small bowel obstruction. If further evaluation is desired, then a contrast small bowel exam would be recommended. The uterus and urinary bladder are grossly unremarkable. There does appear to have been a prior resection of the ascending colon. The liver, spleen, pancreas, adrenals, gallbladder, aorta and inferior vena cava are unchanged when compared to the prior exam. The peripheral enhancing lesion in the right lobe of the liver seen previously is again evident and no different. This does suggest a hemangioma. The hiatal hernia seen previously is again evident and no different. The lung bases are clear. The bone window shows no evidence for a fracture or for destructive lesion. IMPRESSION: 1. In the interval since the prior exam, several dilated gas-filled and fluid-filled segments of small bowel have developed. This appearance does suggest a partial small bowel obstruction. Recommendations as above. 2. The mass along the posterior aspect of the right kidney seen previously does measure larger on this exam. This finding is worrisome for neoplasm. If further imaging is desired, MRI should be obtained. A urologic consult would also be recommended. 3. There is no acute abnormality of the abdomen and pelvis otherwise. 4.These results were discussed with Dr. Woodard in the ER. Dictated by: Dictated on workstation # [id number]
[2018-02-08] MEDS: NS IV 1000 ML 1,000 ML IV SCH ×3 (09:30→23:18)
[2018-02-08] MEDS: HYDROmorphone 2 MG/ML VIAL (DILAUDID) IV PRN ×5 (09:35→23:14)
[2018-02-08] MEDS ORDERED: HYDROmorphone 2 MG/ML VIAL (DILAUDID) ONE (09:36)
[2018-02-08] MEDS: ONDANSETRON 4 MG/2 ML (SDV) Z0FRAN IVP PRN ×2 (11:53→18:47)
[2018-02-08 12:30] VITALS: BP 148/88
[2018-02-08 15:34] VITALS: BP 152/79
[2018-02-08] MEDS: PROMETHAZINE INJ 25 MG/ML (PHENERGAN) AMP IVP PRN (16:15)
--- NOTE | 2018-02-08 16:34 | Consultation-Hospitalist ---
HPI History of Present Illness: HPI/Chief Complaint Pt is a 72yoCF with a PMH of colon cancer s/p resection x2 who presented to the ER [facility] of abdominal pain. She states her symptoms started last night at 9 and is located to her upper abdomen. She has never had similar pain. She complains of some nausea with it as well. She was found to have a SBO and was admitted to surgical service. I am consulted for medical management. She denies any medical problems or taking any medications. Source: patient Date Seen 02/08/18 Attending Physician Yehuda Gabriel DO PCP No,Local Physician Referring Physician Date of Admission Feb 08, 2018 at 7:59 am Home Medications & Allergies Home Medications Reviewed patient Home Medication Reconciliation performed by pharmacy medication reconciliations device repair technician and/or nursing. Patients Allergies have been reviewed. Allergies Allergies Coded Allergies No Known Drug Allergies (Unverified06/17/16) Past Rlgfqti-Cfeuoq-Kaedmk Hx Past Med/Social Hx: Reviewed Nursing Past Med/Soc Hx Patient Social History Alcohol Use: Denies Use Recreational Drug Use: No Smoking Status: Former Smoker Former Smoker, Quit: Jun 17, 1977 Type Used: Cigarettes 2nd Hand Smoke Exposure: No Physical Abuse Screen: No Sexual Abuse: No Recent Foreign Travel: No Contact w/other who traveled: No Recent Hopitalizations: No Recent Infectious Disease Expo: No Immunizations Up To Date Tetanus Booster (TDap): Unknown Pediatric: No Date of Pneumonia Vaccine: Jan 09, 2016 Date of Influenza Vaccine: Jan 28, 2018 Seasonal Allergies Seasonal Allergies: No Past Medical History Surgeries: Abdominal, Adenoidectomy, Tonsillectomy Currently Using CPAP: No Currently Using BIPAP: No Reproductive: No Cancer: Colon What Type of Treatment Did You: Chemotherapy, Surgical Intervention History of Blood Disorders: No Family History Reviewed Nursing Family Hx No Pertinent Family Hx Review of Systems Constitutional: No chills, No fever EENTM: No blurred vision, No double vision, No nose congestion, No throat pain Respiratory: No cough, No dyspnea on exertion, No short of breath Cardiovascular: No chest pain, No edema, No palpitations Gastrointestinal: abdominal pain; No constipation (last BM yesterday); loss of appetite, nausea Genitourinary: No dysuria, No frequency Musculoskeletal: No joint pain, No muscle pain Skin: No lesions, No rash Psychiatric/Neurological: Denies Headache, Denies Numbness, Denies Tingling Physical Exam Physical Exam Vital Signs Vital Signs - First Documented 02/08/18 02/08/18 05:38 05:57 Temp 97.2 Pulse 80 Resp 20 B/P (MAP) 156/96 (116) Pulse Ox 100 O2 Delivery Room Air O2 Flow Rate 2.00 Capillary Refill : Less Than 3 Seconds Height, Weight, BMI Height: 5'10.00" Weight: 174lbs. 2.0oz. 78.911597sw; 25.0 BMI Method:Stated General Appearance: No Apparent Distress, WD/WN HEENT: PERRL/EOMI, Other (NGT in place) Neck: Non Tender, Supple Respiratory: Lungs Clear, No Respiratory Distress Cardiovascular: Regular Rate, Rhythm, No Murmur Gastrointestinal: Soft, Abnormal Bowel Sounds (quiet), Distended (mild), Tenderness (mild, diffuse) Extremity: Normal Capillary Refill, No Calf Tenderness Neurologic/Psychiatric: Alert, Oriented x3, Normal Mood/Affect Skin: Normal Color, Warm/Dry Results Results/Procedures Labs Laboratory Tests 02/08/18 05:55 Patient resulted labs reviewed. Imaging: Reviewed Imaging Report Assessment/Plan Assessment and Plan Assess & Plan/Chief Complaint SBO Diagnosis/Problems Diagnosis/Problems (1) Small bowel obstruction Status: Acute Assessment & Plan: NGT in place Continue pain meds Management per surgery (2) Hyperglycemia Assessment & Plan: SSI Likely stress induced (3) Elevated blood pressure reading Assessment & Plan: No known history of HTN Likely due to pain Trend Clinical Quality Measures DVT/VTE Risk/Contraindication: Risk Factor Score Per Nursin RFS Level Per Nursing on Admit: 4+=Very High SIMÓN LOW MD Feb 08, 2018 4:34 pm
[2018-02-08] MEDS ORDERED: NITROGLYCERIN 2% OINT 1 GM UNIT DOSE PACKET TOP PRN (16:45)
[2018-02-08 20:54] VITALS: BP 121/66
--- NOTE | 2018-02-08 21:55 | History & Physical-Surgical ---
History of Present Illness History of Present Illness Reason for visit/HPI Chief complaint small bowel obstruction Patient is a 72-year-old female with history of colon cancer. Patient had yesterday evening began filling ill and began having nausea and vomiting. Patient having abdominal pain in the upper portion of the abdomen. She just feeling weak. She states her pain is moderate to severe. She had been doing well without any complaints. She denies any fever sweats chills shortness of breath or chest pain. Patient had a CT scan that I reviewed demonstrating a small bowel obstruction and also increasing lesion on the right kidney. Patient has had a NG-tube placed this morning and is on low intermittent wall suction. Patient not passing any flatus or bowel movement. Date of Admission Feb 08, 2018 at 07:59 Date Seen by a Provider: Feb 08, 2018 Time Seen by a Provider: 07:55 I consulted on this patient on 02/08/18 21:49 Attending Physician Marichuy Gabriel DO Admitting Physician No,Local Physician Consult Allergies and Home Medications Allergies Coded Allergies: No Known Drug Allergies (Unverified , 06/17/16) Home Medications No Active Prescriptions or Reported Meds Patient Home Medication List Home Medication List Reviewed: Yes Past [id number]-Zvtmjl-Qmmmld Hx Patient Social History Alcohol Use: Denies Use Recreational Drug Use: No Smoking Status: Former Smoker Former Smoker, Quit: Jun 17, 1977 Type Used: Cigarettes 2nd Hand Smoke Exposure: No Recent Foreign Travel: No Contact w/Someone Who Travel: No Recent Infectious Disease Expo: No Recent Hopitalizations: No Physical Abuse Screen: No Sexual Abuse: No Immunizations Up To Date Tetanus Booster (TDap): Unknown PED Vaccines UTD: No Date of Pneumonia Vaccine: Jan 09, 2016 Date of Influenza Vaccine: Jan 28, 2018 Seasonal Allergies Seasonal Allergies: No Surgeries History of Surgeries: Yes (colon resection, port) Surgeries: Abdominal, Adenoidectomy, Tonsillectomy Respiratory History of Respiratory Disorde: No Cardiovascular History of Cardiac Disorders: No Neurological History of Neurological Disord: No Reproductive System Hx Reproductive Disorders: No Genitourinary History of Genitourinary Disor: No Gastrointestinal History of Gastrointestinal Di: Yes (COLON CANCER DX 2017) Musculoskeletal History of Musculoskeletal Dis: No Endocrine History of Endocrine Disorders: No HEENT History of HEENT Disorders: No Cancer History of Cancer: Yes Cancer: Colon Psychosocial History of Psychiatric Problem: No Integumentary History of Skin or Integumenta: No Blood Transfusions History of Blood Disorders: No Family Medical History Significant Family History: No Pertinent Family Hx Review of Systems Constitutional: see HPI EENTM: no symptoms reported Respiratory: no symptoms reported Cardiovascular: no symptoms reported Gastrointestinal: see HPI Musculoskeletal: no symptoms reported Skin: no symptoms reported Psychiatric/Neurological: No Symptoms Reported Physical Exam Vital Signs Vital Signs - First Documented 02/08/18 02/08/18 05:38 05:57 Temp 97.2 Pulse 80 Resp 20 B/P (MAP) 156/96 (116) Pulse Ox 100 O2 Delivery Room Air O2 Flow Rate 2.00 Capillary Refill : Less Than 3 Seconds Height, Weight, BMI Height: 5'10.00" Weight: 174lbs. 2.0oz. 78.203334kb; 25.0 BMI Method:Stated General Appearance: Mild Distress HEENT: PERRL/EOMI Neck: Non Tender, Supple Respiratory: Chest Non Tender, No Accessory Muscle Use, No Respiratory Distress Cardiovascular: Regular Rate, Rhythm Gastrointestinal: Soft, Distended (Minimally), Tenderness (Mildly tender diffusely) Rectal: Deferred Back: Normal Inspection Extremity: Non Tender Neurologic/Psychiatric: Alert, Oriented x3, No Motor/Sensory Deficits, Normal Mood/Affect, cooler supervisor II-XII Norm as Tested Skin: Normal Color, Warm/Dry Lymphatic: No Adenopathy Data Review Labs Laboratory Tests 02/08/18 05:55: White Blood Count 8.9, Red Blood Count 4.64, Hemoglobin 14.2, Hematocrit 41, Mean Corpuscular Volume 89, Mean Corpuscular Hemoglobin 31, Mean Corpuscular Hemoglobin Concent 35, Red Cell Distribution Width 12.3, Platelet Count 183, Mean Platelet Volume 9.4, Neutrophils (%) (Auto) 82H, Lymphocytes (%) (Auto) 9L , Monocytes (%) (Auto) 8, Eosinophils (%) (Auto) 0, Basophils (%) (Auto) 0, Neutrophils # (Auto) 7.3, Lymphocytes # (Auto) 0.8L, Monocytes # (Auto) 0.7, Eosinophils # (Auto) 0.0, Basophils # (Auto) 0.0, Sodium Level 143, Potassium Level 3.8, Chloride Level 109H, Carbon Dioxide Level 22, Anion Gap 12, Blood Urea Nitrogen 16, Creatinine 0.88, Estimat Glomerular Filtration Rate > 60, BUN/ Creatinine Ratio 18, Glucose Level 156H, Lactic Acid Level 2.00, Calcium Level 10.4H, Corrected Calcium 10.1, Magnesium Level 1.9, Total Bilirubin 0.9, Aspartate Amino Transf (AST/SGOT) 22, Alanine Aminotransferase (ALT/SGPT) 16, Alkaline Phosphatase 65, Troponin I < 0.30, Total Protein 7.0, Albumin 4.4, Lipase 18 02/08/18 21:13: Glucometer 132H Assessment/Plan Assessment/Plan Admission Diagonsis Small bowel obstruction, history of colon cancer, renal mass Admission Status: Inpatient Order (span 2 midnights) Reason for Inpatient Admission: Patient will need further imaging studies and will need to midnight in order to watch patient progress to improvement or to need surgery Assessment/Plan Small bowel obstruction, history of colon cancer, renal mass Patient on NG tube with low intermittent wall suction. Small bowel follow-through tomorrow. Pain control nothing by mouth at this time no surgical intervention at this time. We'll continue with conservative management. Patient understands that she may need surgery Consult Dr. Staton for medical management Clinical Quality Measures DVT/VTE Risk/Contraindication: Risk Factor Score Per Nursin RFS Level Per Nursing on Admit: 4+=Very High MARIHCUY GABRIEL DO Feb 08, 2018 21:54
[2018-02-08] MEDS: inSUlin ASPART (NovoLOG) 1 UNIT/0.01 ML (CHARGE PER UNIT) SC SCH (22:02)
[2018-02-09] VITALS: BP 106/53
[2018-02-09 04:00] VITALS: BP 130/62
[2018-02-09] MEDS: HYDROmorphone 2 MG/ML VIAL (DILAUDID) IV PRN ×6 (05:08→22:00)
[2018-02-09] MEDS: inSUlin ASPART (NovoLOG) 1 UNIT/0.01 ML (CHARGE PER UNIT) SC SCH ×4 (05:10→18:02)
[2018-02-09] MEDS: ONDANSETRON 4 MG/2 ML (SDV) Z0FRAN IVP PRN ×2 (05:33→21:47)
[2018-02-09 05:41] LABS: BASOPHILS % (AUTO) 0 % (0-10); EOSINOPHILS % (AUTO) 0 % (0-10); HEMATOCRIT 38 % (35-52); HEMOGLOBIN 12.9 G/DL (11.5-16.0); LYMPHOCYTES # (AUTO) 0.4 X 10^3 (1.0-4.0); LYMPHOCYTES % (AUTO) 10 % (12-44); MEAN CORPUSCULAR HEMOGLOBIN 32 PG (25-34); MEAN CORPUSCULAR HGB CONC 34 G/DL (32-36); MEAN CORPUSCULAR VOLUME 94 FL (80-99); MEAN PLATELET VOLUME 9.2 FL (7.4-10.4); MONOCYTES # (AUTO) 1.1 X 10^3 (0.0-1.0); MONOCYTES % (AUTO) 27 % (0-12); NEUTROPHILS # (AUTO) 2.6 X 10^3 (1.8-7.8); NEUTROPHILS % (AUTO) 63 % (42-75); PLATELET COUNT 165 10^3/uL (130-400); RED BLOOD COUNT 4.04 10^6/uL (4.35-5.85); RED CELL DISTRIBUTION WIDTH 12.8 % (10.0-14.5); WHITE BLOOD COUNT 4.1 10^3/uL (4.3-11.0)
[2018-02-09 06:03] LABS: ALANINE AMINOTRANSFERASE 16 U/L (0-55); ALBUMIN 3.6 GM/DL (3.2-4.5); ALKALINE PHOSPHATASE 56 U/L (40-136); BILIRUBIN,TOTAL 0.8 MG/DL (0.1-1.0); BUN/CREATININE RATIO 18; CALCIUM 8.5 MG/DL (8.5-10.1); CARBON DIOXIDE 24 MMOL/L (21-32); CHLORIDE 111 MMOL/L (98-107); CREATININE SERUM 0.77 MG/DL (0.60-1.30); GFR ESTIMATED > 60; GLUCOSE 133 MG/DL (70-105); SODIUM 145 MMOL/L (135-145); TOTAL PROTEIN 5.9 GM/DL (6.4-8.2)
[2018-02-09 08:00] VITALS: BP 116/56
[2018-02-09] MEDS: NS IV 1000 ML 1,000 ML IV SCH ×2 (09:54→17:57)
--- NOTE | 2018-02-09 10:09 | Progress Note ---
Subjective Date Seen by a Provider: Feb 09, 2018 Time Seen by a Provider: 10:06 Subjective/Events-last exam Patient still with abdominal pain unchanged. Patient having some nausea and vomiting. She did throw up so a Gastrografin small bowel follow-through. Not passing any flatus or bowel movement. Patient nothing by mouth and NG tube in place. Focused Exam Lactate Level 02/08/18 05:55: Lactic Acid Level 2.00 Objective Exam Vital Signs Date Time Temp Pulse Resp B/P (MAP) Pulse Ox O2 Delivery O2 Flow Rate FiO2 02/09/18 07:42 96 Nasal Cannula 3.00 02/09/18 04:00 97.5 74 18 130/62 (84) 96 Nasal Cannula 2.00 02/09/18 00:00 98.9 73 16 106/53 (70) 98 Nasal Cannula 2.00 02/08/18 21:00 Room Air 02/08/18 20:54 100.1 71 19 121/66 (84) 99 Nasal Cannula 3.00 02/08/18 15:34 98.2 65 20 152/79 (103) 98 Nasal Cannula 3.00 02/08/18 12:56 Room Air 02/08/18 12:30 97.8 90 18 148/88 (108) Nasal Cannula 3.00 I & O 02/09/18 07:00 Intake Total 0 ml Output Total 1775 ml Balance -1775 ml Capillary Refill : Less Than 3 Seconds General Appearance: No Apparent Distress HEENT: PERRL/EOMI Neck: Non Tender, Supple Respiratory: Chest Non Tender, No Accessory Muscle Use, No Respiratory Distress Cardiovascular: Regular Rate, Rhythm Peripheral Pulses: 2+ Radial Pulses (R), 2+ Radial Pulses (L) Gastrointestinal: distended (Minimally), tenderness (Diffuse but minimally tender) Extremity: Non Tender Neurologic/Psychiatric: Alert, Oriented x3, No Motor/Sensory Deficits, Normal Mood/Affect, production laborer II-XII Norm as Tested Skin: Normal Color, Warm/Dry Lymphatic: No Adenopathy Results Lab Laboratory Tests 02/08/18 21:13: Glucometer 132H 02/08/18 23:50: Glucometer 150H 02/09/18 05:09: Glucometer 115H 02/09/18 05:30: White Blood Count 4.1L, Red Blood Count 4.04L, Hemoglobin 12.9, Hematocrit 38, Mean Corpuscular Volume 94, Mean Corpuscular Hemoglobin 32, Mean Corpuscular Hemoglobin Concent 34, Red Cell Distribution Width 12.8, Platelet Count 165, Mean Platelet Volume 9.2, Neutrophils (%) (Auto) 63, Lymphocytes (%) (Auto) 10L , Monocytes (%) (Auto) 27H, Eosinophils (%) (Auto) 0, Basophils (%) (Auto) 0, Neutrophils # (Auto) 2.6, Lymphocytes # (Auto) 0.4L, Monocytes # (Auto) 1.1H, Eosinophils # (Auto) 0.0, Basophils # (Auto) 0.0, Sodium Level 145, Potassium Level 4.0, Chloride Level 111H, Carbon Dioxide Level 24, Anion Gap 10, Blood Urea Nitrogen 14, Creatinine 0.77, Estimat Glomerular Filtration Rate > 60, BUN/ Creatinine Ratio 18, Glucose Level 133H, Calcium Level 8.5, Corrected Calcium 8.8, Total Bilirubin 0.8, Aspartate Amino Transf (AST/SGOT) 18, Alanine Aminotransferase (ALT/SGPT) 16, Alkaline Phosphatase 56, Total Protein 5.9L, Albumin 3.6 Assessment/Plan Assessment/Plan Assessment/Plan Small bowel obstruction, history of colon cancer, renal mass Patient on NG tube with low intermittent wall suction. Small bowel follow-through being performed today. Pain control nothing by mouth at this time no surgical intervention at this time. We'll continue with conservative management. If no significant improvement today likely go to the operating room tomorrow for exploration. Clinical Quality Measures DVT/VTE Risk/Contraindication: Risk Factor Score Per Nursin RFS Level Per Nursing on Admit: 4+=Very High MARICHUY GILL DO Feb 09, 2018 10:09
[2018-02-09 12:00] VITALS: BP 125/71
[2018-02-09] MEDS: PROMETHAZINE INJ 25 MG/ML (PHENERGAN) AMP IVP PRN (14:29)
--- NOTE | 2018-02-09 15:34 | Diagnostic Imaging Report ---
INDICATION: Abdominal pain. COMPARISON: None. DISCUSSION: Preliminary abdominal film demonstrates gas and stool within the colon. Enteric tube is present. Suture line is noted within the lower pelvis. 120 mL of Gastrografin was then administered through the enteric tube. Serial radiographs were obtained. There is progression of contrast through somewhat dilated small bowel loops. At 7 hours, there is no contrast within the colon. Several dilated fluid-filled small bowel loops are noted diffusely throughout the abdomen. IMPRESSION: 1. Dilated fluid-filled small bowel loops are noted diffusely throughout the abdomen. Contrast is not visualized within the colon at 7 hours. Findings could be due to ileus or obstruction. Dictated by: Dictated on workstation # [id number]
[2018-02-09 16:20] VITALS: BP 153/77
[2018-02-09 20:00] VITALS: BP 145/75
[2018-02-09] MEDS ORDERED: ACETAMINOPHEN 650 MG SUPP (TYLENOL) PR PRN (21:15)
[2018-02-10] VITALS: BP 147/75
[2018-02-10] MEDS: inSUlin ASPART (NovoLOG) 1 UNIT/0.01 ML (CHARGE PER UNIT) SC SCH ×4 (00:39→18:23)
[2018-02-10] MEDS: HYDROmorphone 2 MG/ML VIAL (DILAUDID) IV PRN ×6 (01:38→22:04)
[2018-02-10] MEDS: NS IV 1000 ML 1,000 ML IV SCH ×3 (01:38→21:56)
[2018-02-10 04:00] VITALS: BP 152/76
[2018-02-10 08:00] VITALS: BP 127/64
[2018-02-10] MEDS ORDERED: ceFAZolin INJECTION 1,000 MG in NS (IVPB) 50 ML IV ONE (09:00)
--- NOTE | 2018-02-10 09:09 | Diagnostic Imaging Report ---
INDICATION: Abdominal pain. Comparison made with prior examination 02/09/2018. FINDINGS: Bowel gas pattern is nonspecific. There is some minimal residual contrast and some small bowel loops in the pelvis. There are no abnormal abdominal calcifications. The osseous structures are unremarkable. IMPRESSION: Nonspecific bowel gas pattern. Dictated by: Dictated on workstation # [id number]
--- NOTE | 2018-02-10 10:08 | Progress Note-Hospitalist ---
Subjective HPI/CC On Admission Date Seen by Provider: Feb 10, 2018 Time Seen by Provider: 10:05 Pt is a 72yoCF with a PMH of colon cancer s/p resection x2 who presented to the ER [facility] of abdominal pain. She states her symptoms started last night at 9 and is located to her upper abdomen. She has never had similar pain. She complains of some nausea with it as well. She was found to have a SBO and was admitted to surgical service. I am consulted for medical management. She denies any medical problems or taking any medications. Subjective/Events-last exam Pt reports feeling miserable. Plan for surgery today. Focused Exam Lactate Level 02/08/18 05:55: Lactic Acid Level 2.00 Objective Exam Vital Signs Vital Signs Date Time Temp Pulse Resp B/P (MAP) Pulse Ox O2 Delivery O2 Flow Rate FiO2 02/10/18 04:00 97.9 88 20 152/76 (101) 95 Nasal Cannula 2.00 Capillary Refill : Less Than 3 Seconds General Appearance: Chronically ill, Mild Distress Gastrointestinal: Soft, Distended; No Guarding; Tenderness Neurologic/Psychiatric: Alert, Oriented x3 Results/Procedures Lab Patient resulted labs reviewed. Imaging: Reviewed Imaging Report Assessment/Plan Assessment and Plan Assess & Plan/Chief Complaint SBO Diagnosis/Problems Diagnosis/Problems (1) Small bowel obstruction Status: Acute Assessment & Plan: NGT in place Continue pain meds Management per surgery Plan for OR today (2) Hyperglycemia Assessment & Plan: SSI Likely stress induced (3) Elevated blood pressure reading Assessment & Plan: No known history of HTN Likely due to pain Trend Clinical Quality Measures DVT/VTE Risk/Contraindication: Risk Factor Score Per Nursin RFS Level Per Nursing on Admit: 4+=Very High SIMÓN LOW MD Feb 10, 2018 10:08
[2018-02-10] MEDS ORDERED: NEOSTIGMINE 1 MG/ML 5 ML SYRINGE ONE (10:19)
[2018-02-10] MEDS ORDERED: LIDOCAINE PF 2% 5 ML (XYLOCAINE) VIAL ONE (10:19)
[2018-02-10] MEDS ORDERED: GLYCOPYRROLATE 0.2 MG/ML (ROBINUL) 2 ML VIAL ONE (10:19)
[2018-02-10] MEDS ORDERED: ROCURONIUM 10 MG/ML 5 ML SYRINGE IV ONE (10:19)
[2018-02-10] MEDS ORDERED: SEVOFLURANE (ULTANE) 15 ML INHAL SOLN ONE ×2 (10:19→12:47)
[2018-02-10] MEDS ORDERED: proPOfol 200 MG/20 ML (DIPRIVAN) VIAL IV ONE (10:19)
[2018-02-10] MEDS ORDERED: ONDANSETRON 4 MG/2 ML (SDV) Z0FRAN ONE (10:19)
[2018-02-10] MEDS ORDERED: fentaNYL INJECTION 100 MCG/2 ML AMP ONE (10:19)
--- NOTE | 2018-02-10 10:45 | Progress Note ---
Subjective Date Seen by a Provider: Feb 10, 2018 Time Seen by a Provider: 10:38 Subjective/Events-last exam Patient not passing flatus. sbft contrast thrown up and not visualized still with dilated loops of small bowel. patient not feeling well. having abdominal pain slightly worsening. Ng tube to liws. Focused Exam Lactate Level 02/08/18 05:55: Lactic Acid Level 2.00 Objective Exam Vital Signs Date Time Temp Pulse Resp B/P (MAP) Pulse Ox O2 Delivery O2 Flow Rate FiO2 02/10/18 04:00 97.9 88 20 152/76 (101) 95 Nasal Cannula 2.00 02/10/18 00:00 97.1 84 18 147/75 (99) 96 Nasal Cannula 2.00 02/09/18 21:28 99.7 02/09/18 20:00 100.2 89 20 145/75 (98) 93 Nasal Cannula 2.00 02/09/18 16:20 100.3 88 20 153/77 (102) 93 Nasal Cannula 2.00 02/09/18 12:00 99.3 74 16 125/71 (89) 97 Nasal Cannula 3.00 I & O 02/10/18 07:00 Intake Total 3000 ml Output Total 2700 ml Balance 300 ml Capillary Refill : Less Than 3 Seconds General Appearance: Chronically ill, Mild Distress HEENT: PERRL/EOMI Neck: Non Tender, Supple Respiratory: Chest Non Tender, No Accessory Muscle Use, No Respiratory Distress Cardiovascular: Regular Rate, Rhythm Peripheral Pulses: 2+ Radial Pulses (R), 2+ Radial Pulses (L) Gastrointestinal: distended (Minimally), tenderness (Diffuse slightly more tender) Extremity: Non Tender Neurologic/Psychiatric: Alert, Oriented x3 Skin: Normal Color, Warm/Dry Lymphatic: No Adenopathy Results Lab Laboratory Tests 02/09/18 12:04: Glucometer 113H 02/09/18 17:57: Glucometer 102 02/09/18 20:53: Glucometer 122H 02/10/18 00:18: Glucometer 113H 02/10/18 05:31: Glucometer 114H Microbiology 02/08/18 Blood Culture - Preliminary, Resulted No growth Assessment/Plan Assessment/Plan Assessment/Plan Small bowel obstruction, history of colon cancer, renal mass Patient on NG tube with low intermittent wall suction. patient with conservative management not working. we discussed exploratory laparotomy all other indicated procedures and she wishes to proceed family also discussed risks and benefits. to or Clinical Quality Measures DVT/VTE Risk/Contraindication: Risk Factor Score Per Nursin RFS Level Per Nursing on Admit: 4+=Very High MARICHUY GILL DO Feb 10, 2018 10:45
[2018-02-10] MEDS ORDERED: BUPIVACAINE 0.5% 30 ML (SENSORCAINE) VIAL ONE (11:42)
[2018-02-10] MEDS ORDERED: LACTATED RINGERS 1,000 ML IV PRN (11:45)
[2018-02-10] MEDS ORDERED: SUCCINYLCHOLINE INJ 100 MG/5 ML SYR ONE (11:56)
[2018-02-10] MEDS ORDERED: ESMOLOL 100 MG/10 ML (BREVIBLOC) VIAL ONE (11:59)
[2018-02-10] MEDS ORDERED: MEPERIDINE (DEMEROL) INJ 50 MG/ML IVP ONE (12:30)
[2018-02-10] MEDS ORDERED: ONDANSETRON 4 MG/2 ML (SDV) Z0FRAN IVP PRN (12:30)
[2018-02-10] MEDS ORDERED: morphine INJ 10 MG/ML 1ML (SYR OR VIAL) IVP ONE (12:30)
[2018-02-10] MEDS ORDERED: PHENYLEPHRINE 100 MCG/ML 10 ML (ANESTHESIA) SYR ONE (12:45)
[2018-02-10 13:25] VITALS: BP 132/67
--- NOTE | 2018-02-10 13:27 | Progress Note-Post Operative ---
Post-Operative Progess Note Surgeon (s)/Oil Painter (s) Surgeon MARICHUY GILL DO Oil Painter: Dr. Gerard Pre-Operative Diagnosis sbo Post-Operative Diagnosis sbo secondary to internal hernia and adhesions Procedure & Operative Findings Date of Procedure 02/10/18 Procedure Performed/Findings exploratory laparotomy with lysis of adhesions and release of small bowel obstruction Anesthesia Type gen Estimated Blood Loss Estimated blood loss (mL): min Specimens/Packing Specimens Removed na MARICHUY GILL DO Feb 10, 2018 13:27
[2018-02-10 15:49] VITALS: BP 141/63
[2018-02-10] MEDS: ceFAZolin INJECTION 1,000 MG in NS (IVPB) 50 ML IV SCH (18:23)
[2018-02-10 19:27] VITALS: BP 145/67
--- NOTE | 2018-02-10 23:48 | OPERATIVE REPORT ---
DATE OF SERVICE: 02/10/2018 PREOPERATIVE DIAGNOSIS: Small-bowel obstruction. POSTOPERATIVE DIAGNOSIS: Small-bowel obstruction secondary to internal hernia and adhesions. PROCEDURE: Exploratory laparotomy with lysis of adhesions, release of small-bowel obstruction. SURGEON: Marichuy Gabriel DO CLOTH PRINTING INSPECTOR: Dr. Gerard, assisted in retraction, dissection and closure. ANESTHESIA: General. ESTIMATED BLOOD LOSS: Minimal. COMPLICATIONS: None. INDICATIONS: The patient is a 72-year-old female who presented to the Emergency Department with nausea and vomiting. Workup revealed a small-bowel obstruction. Conservative measures were tried without any improvement. The patient says no improvement, was discussed procedure and wished to proceed with the procedure. Consent was signed in the chart. PROCEDURE: The patient was taken to the operating suite. She was prepped and draped in sterile fashion. Surgical pause was performed. Midline incision was made and entered in the abdomen. The small bowel was dilated. The small bowel was then started to be brought out along with the transverse colon and the omentum. The small bowel was then continued to be ran. This was dilated. There were multiple adhesions that were freed with both blunt and cautery dissection. There was an internal hernia at the sigmoid region from previous sigmoid resection with anastomosis. There are multiple adhesions here. They were all mobilized and the small bowel was then ran from the ileocolonic anastomosis. The small bowel was then ran releasing the small-bowel obstruction caused by the internal hernia. The small bowel was ran from the ileocolonic anastomosis all the way to the ligament of Treitz noting no other pathology. The liver was palpated. There is a small palpable soft mass approximately 2 cm. There was no other palpable masses present. The abdomen was then irrigated with copious amounts of irrigation. The fascia was then closed using 1-0 looped PDS. The skin was then closed using albaro. The patient tolerated the procedure well without any complications. She was sent to recovery room in stable condition. Job ID: [id number] DocumentID: [id number] Dictated Date: 02/10/2018 14:26:04 Regulated Program Manager Date: 02/10/2018 23:48:14 Dictated By: MARICHUY GABRIEL DO
[2018-02-11] VITALS: BP 139/69
[2018-02-11] MEDS: HYDROmorphone 2 MG/ML VIAL (DILAUDID) IV PRN ×7 (01:59→21:33)
[2018-02-11] MEDS: ceFAZolin INJECTION 1,000 MG in NS (IVPB) 50 ML IV SCH (03:28)
[2018-02-11 04:00] VITALS: BP 135/61
[2018-02-11] MEDS: NS IV 1000 ML 1,000 ML IV SCH ×4 (04:12→22:11)
[2018-02-11] MEDS: inSUlin ASPART (NovoLOG) 1 UNIT/0.01 ML (CHARGE PER UNIT) SC SCH ×4 (05:30→18:45)
[2018-02-11 08:00] VITALS: BP 153/77
--- NOTE | 2018-02-11 09:00 | Progress Note-Hospitalist ---
Subjective HPI/CC On Admission Date Seen by Provider: Feb 11, 2018 Time Seen by Provider: 08:57 Pt is a 72yoCF with a PMH of colon cancer s/p resection x2 who presented to the ER [facility] CC of abdominal pain. She states her symptoms started last night at 9 and is located to her upper abdomen. She has never had similar pain. She complains of some nausea with it as well. She was found to have a SBO and was admitted to surgical service. I am consulted for medical management. She denies any medical problems or taking any medications. Subjective/Events-last exam Pt reports feeling better. Pain improved but very sore. No other complaints. Objective Exam Vital Signs Vital Signs Date Time Temp Pulse Resp B/P (MAP) Pulse Ox O2 Delivery O2 Flow Rate FiO2 02/11/18 08:01 Nasal Cannula 2.00 02/11/18 04:00 98.9 79 20 135/61 (85) 96 Capillary Refill : Less Than 3 Seconds General Appearance: No Apparent Distress, WD/WN Cardiovascular: Regular Rate, Rhythm, No Murmur Gastrointestinal: Abnormal Bowel Sounds, Distended, Tenderness (appropriate ) Neurologic/Psychiatric: Alert, Oriented x3 Results/Procedures Lab Patient resulted labs reviewed. Imaging: Reviewed Imaging Report Assessment/Plan Assessment and Plan Assess & Plan/Chief Complaint SBO Diagnosis/Problems Diagnosis/Problems (1) Small bowel obstruction Status: Acute Assessment & Plan: NGT in place Continue pain meds Management per surgery POD #1 (2) Hyperglycemia Assessment & Plan: SSI Likely stress induced Much improved (3) Elevated blood pressure reading Assessment & Plan: No known history of HTN Likely due to pain Trend- within normal limits Clinical Quality Measures DVT/VTE Risk/Contraindication: Risk Factor Score Per Nursin RFS Level Per Nursing on Admit: 4+=Very High SIMÓN LOW MD Feb 11, 2018 9:00 am
[2018-02-11 12:00] VITALS: BP 152/87
[2018-02-11 12:37] LABS: HEMOGLOBIN 11.4 G/DL (11.5-16.0); MEAN PLATELET VOLUME 9.6 FL (7.4-10.4); RED BLOOD COUNT 3.69 10^6/uL (4.35-5.85); RED CELL DISTRIBUTION WIDTH 12.6 % (10.0-14.5); WHITE BLOOD COUNT 6.2 10^3/uL (4.3-11.0)
[2018-02-11 12:55] LABS: BUN/CREATININE RATIO 21; CALCIUM 8.5 MG/DL (8.5-10.1); CARBON DIOXIDE 23 MMOL/L (21-32); CHLORIDE 114 MMOL/L (98-107); CREATININE SERUM 0.62 MG/DL (0.60-1.30); GFR ESTIMATED > 60; GLUCOSE 101 MG/DL (70-105); PHOSPHORUS 1.2 MG/DL (2.3-4.7); POTASSIUM 3.8 MMOL/L (3.6-5.0); SODIUM 148 MMOL/L (135-145)
[2018-02-11] MEDS ORDERED: POTASSIUM PHOSPHATE INJ 30 MM in NS (IVPB) 250 ML IV ONE (15:45)
--- NOTE | 2018-02-11 15:50 | Progress Note ---
Subjective Date Seen by a Provider: Feb 11, 2018 Time Seen by a Provider: 15:48 Subjective/Events-last exam Patient feeling a little bit better today. No flatus or bowel movement. Pain control. Denies any nausea or fever sweats chills shortness of breath or chest pain Objective Exam Vital Signs Date Time Temp Pulse Resp B/P (MAP) Pulse Ox O2 Delivery O2 Flow Rate FiO2 02/11/18 12:00 98.6 82 18 152/87 (108) 97 Nasal Cannula 2.00 02/11/18 08:01 Nasal Cannula 2.00 02/11/18 08:00 98.3 73 20 153/77 (102) 95 Nasal Cannula 2.00 02/11/18 04:00 98.9 79 20 135/61 (85) 96 Nasal Cannula 2.00 02/11/18 00:00 97.0 78 20 139/69 (92) 95 Nasal Cannula 2.00 02/10/18 20:29 Nasal Cannula 2.00 02/10/18 20:15 95 Nasal Cannula 2.00 02/10/18 19:27 98.6 79 18 145/67 (93) 99 Nasal Cannula 2.00 02/10/18 17:20 Nasal Cannula 2.00 02/10/18 15:49 97.3 89 20 141/63 (89) 99 Nasal Cannula 2.00 I & O 02/11/18 07:00 Intake Total 2100 ml Output Total 1120 ml Balance 980 ml Capillary Refill : Less Than 3 Seconds General Appearance: No Apparent Distress, WD/WN HEENT: PERRL/EOMI Neck: Non Tender, Supple Respiratory: Chest Non Tender, No Accessory Muscle Use, No Respiratory Distress Cardiovascular: Regular Rate, Rhythm, No Murmur Peripheral Pulses: 2+ Radial Pulses (R), 2+ Radial Pulses (L) Gastrointestinal: distended (Minimally), tenderness (Incisional) Extremity: Non Tender Neurologic/Psychiatric: Alert, Oriented x3 Skin: Normal Color, Warm/Dry Lymphatic: No Adenopathy Results Lab Laboratory Tests 02/10/18 18:13: Glucometer 105 02/11/18 00:21: Glucometer 100 02/11/18 05:28: Glucometer 96 02/11/18 11:30: White Blood Count 6.2, Red Blood Count 3.69L, Hemoglobin 11.4L, Hematocrit 36, Mean Corpuscular Volume 97, Mean Corpuscular Hemoglobin 31, Mean Corpuscular Hemoglobin Concent 32, Red Cell Distribution Width 12.6, Platelet Count 132, Mean Platelet Volume 9.6, Sodium Level 148H, Potassium Level 3.8, Chloride Level 114H, Carbon Dioxide Level 23, Anion Gap 11, Blood Urea Nitrogen 13, Creatinine 0.62, Estimat Glomerular Filtration Rate > 60, BUN/Creatinine Ratio 21, Glucose Level 101, Calcium Level 8.5, Phosphorus Level 1.2L, Magnesium Level 2.0 02/11/18 11:46: Glucometer 103 Microbiology 02/08/18 Blood Culture - Preliminary, Resulted No growth 02/10/18 MRSA Screen - Final, Complete MRSA not isolated Assessment/Plan Assessment/Plan Assessment/Plan Small bowel obstruction, history of colon cancer, renal mass, status post exploratory laparotomy lysis of adhesions and release of small bowel obstruction , hypophosphatemia Patient on NG tube with low intermittent wall suction. Increase activity Physical therapy consult Replace phosphorus repeat labs in the morning SCDs and start Lovenox for DVT prophylaxis Clinical Quality Measures DVT/VTE Risk/Contraindication: Risk Factor Score Per Nursin RFS Level Per Nursing on Admit: 4+=Very High MARICHUY GILL DO Feb 11, 2018 15:50
[2018-02-11 16:09] VITALS: BP 160/75
[2018-02-11] MEDS: ENOXAPARIN 40 MG/0.4 ML (LOVENOX) SYR SC SCH (18:44)
--- NOTE | 2018-02-11 18:49 | Anesthesia-General Post-Op ---
General Patient Condition Mental Status/LOC: Same as Preop Cardiovascular: Satisfactory Nausea/Vomiting: Absent Respiratory: Satisfactory Pain: Controlled Complications: Absent Post Op Complications Complications None Follow Up Care/Instructions Patient Instructions None needed. Anesthesia/Patient Condition Patient Condition Patient is doing well, no complaints, stable vital signs, no apparent adverse anesthesia problems. No complications reported per nursing. ESPERANZA DELONG CRNA Feb 11, 2018 18:49
[2018-02-11 19:21] VITALS: BP 149/70
[2018-02-12] VITALS: BP 156/70
[2018-02-12] MEDS: inSUlin ASPART (NovoLOG) 1 UNIT/0.01 ML (CHARGE PER UNIT) SC SCH ×4 (01:14→18:29)
[2018-02-12 04:00] VITALS: BP 179/79
[2018-02-12 05:34] LABS: HEMOGLOBIN 11.5 G/DL (11.5-16.0); MEAN PLATELET VOLUME 9.3 FL (7.4-10.4); RED BLOOD COUNT 3.64 10^6/uL (4.35-5.85); RED CELL DISTRIBUTION WIDTH 12.4 % (10.0-14.5); WHITE BLOOD COUNT 6.6 10^3/uL (4.3-11.0)
[2018-02-12 05:56] LABS: BUN/CREATININE RATIO 19; CALCIUM 8.5 MG/DL (8.5-10.1); CARBON DIOXIDE 21 MMOL/L (21-32); CHLORIDE 115 MMOL/L (98-107); CREATININE SERUM 0.57 MG/DL (0.60-1.30); GFR ESTIMATED > 60; GLUCOSE 97 MG/DL (70-105); MAGNESIUM 2.1 MG/DL (1.8-2.4); POTASSIUM 3.8 MMOL/L (3.6-5.0); SODIUM 149 MMOL/L (135-145)
[2018-02-12] MEDS: NS IV 1000 ML 1,000 ML IV SCH ×3 (06:07→22:18)
[2018-02-12 08:00] VITALS: BP 142/78
[2018-02-12 12:00] VITALS: BP 162/78
--- NOTE | 2018-02-12 12:22 | Progress Note ---
Subjective Date Seen by a Provider: Feb 12, 2018 Time Seen by a Provider: 12:20 Subjective/Events-last exam No flatus or bowel movement yet. Patient fully better. She is not having any Complaints. Denies any nausea vomiting fever sweats chills shortness of breath or chest pain at this time. Phosphorus is low Objective Exam Vital Signs Date Time Temp Pulse Resp B/P (MAP) Pulse Ox O2 Delivery O2 Flow Rate FiO2 02/12/18 09:00 97 Room Air 02/12/18 08:00 99.5 84 24 142/78 (99) 97 Nasal Cannula 2.00 02/12/18 06:35 97 Nasal Cannula 2.00 02/12/18 04:00 98.6 85 16 179/79 (112) 97 Nasal Cannula 2.00 02/12/18 00:00 98.7 74 16 156/70 (98) 96 Nasal Cannula 2.00 02/11/18 20:00 Nasal Cannula 2.00 02/11/18 19:21 100.1 88 20 149/70 (96) 95 Nasal Cannula 2.00 02/11/18 16:09 99.8 86 20 160/75 (103) 97 Nasal Cannula 2.00 I & O 02/12/18 07:00 Intake Total 1050 ml Output Total 1750 ml Balance -700 ml Capillary Refill : Less Than 3 Seconds General Appearance: No Apparent Distress, WD/WN HEENT: PERRL/EOMI Neck: Non Tender, Supple Respiratory: Chest Non Tender, No Accessory Muscle Use, No Respiratory Distress Cardiovascular: Regular Rate, Rhythm, No Murmur Peripheral Pulses: 2+ Radial Pulses (R), 2+ Radial Pulses (L) Gastrointestinal: distended (Minimally), tenderness (Incisional, no signs of infection) Extremity: Non Tender Neurologic/Psychiatric: Alert, Oriented x3 Skin: Normal Color, Warm/Dry Lymphatic: No Adenopathy Results Lab Laboratory Tests 02/11/18 17:31: Glucometer 86 02/12/18 01:11: Glucometer 90 02/12/18 05:20: White Blood Count 6.6, Red Blood Count 3.64L, Hemoglobin 11.5, Hematocrit 35, Mean Corpuscular Volume 95, Mean Corpuscular Hemoglobin 32, Mean Corpuscular Hemoglobin Concent 33, Red Cell Distribution Width 12.4, Platelet Count 141, Mean Platelet Volume 9.3, Sodium Level 149H, Potassium Level 3.8, Chloride Level 115H, Carbon Dioxide Level 21, Anion Gap 13, Blood Urea Nitrogen 11, Creatinine 0.57L, Estimat Glomerular Filtration Rate > 60, BUN/Creatinine Ratio 19, Glucose Level 97, Calcium Level 8.5, Phosphorus Level 1.3L, Magnesium Level 2.1 02/12/18 05:35: Glucometer 85 Microbiology 02/08/18 Blood Culture - Preliminary, Resulted No growth 02/10/18 MRSA Screen - Final, Complete MRSA not isolated Assessment/Plan Assessment/Plan Assessment/Plan Small bowel obstruction, history of colon cancer, renal mass, status post exploratory laparotomy lysis of adhesions and release of small bowel obstruction , hypophosphatemia Patient on NG tube with low intermittent wall suction. Increase activity Physical therapy consult Replace phosphorus repeat labs in the morning SCDs and Lovenox for DVT prophylaxis Once has flatus can remove NG tube and advance diet Clinical Quality Measures DVT/VTE Risk/Contraindication: Risk Factor Score Per Nursin RFS Level Per Nursing on Admit: 4+=Very High MARICHUY GILL DO Feb 12, 2018 12:22
[2018-02-12] MEDS ORDERED: POTASSIUM PHOSPHATE INJ 30 MM in NS (IVPB) 250 ML IV NR (12:30)
[2018-02-12] MEDS: HYDROmorphone 2 MG/ML VIAL (DILAUDID) IV PRN ×2 (14:03→20:33)
[2018-02-12] MEDS: ENOXAPARIN 40 MG/0.4 ML (LOVENOX) SYR SC SCH (15:58)
[2018-02-12 16:00] VITALS: BP 159/74
[2018-02-12 19:14] VITALS: BP 157/74
[2018-02-13] VITALS (8 sets, daily range): BP systolic 142–177; BP diastolic 74–81
[2018-02-13] MEDS: inSUlin ASPART (NovoLOG) 1 UNIT/0.01 ML (CHARGE PER UNIT) SC SCH ×4 (00:21→18:53)
[2018-02-13] MEDS: NS IV 1000 ML 1,000 ML IV SCH ×4 (05:36→23:18)
[2018-02-13 06:12] LABS: HEMOGLOBIN 11.6 G/DL (11.5-16.0); MEAN PLATELET VOLUME 9.1 FL (7.4-10.4); RED BLOOD COUNT 3.73 10^6/uL (4.35-5.85); RED CELL DISTRIBUTION WIDTH 12.3 % (10.0-14.5); WHITE BLOOD COUNT 6.8 10^3/uL (4.3-11.0)
[2018-02-13 06:37] LABS: BUN/CREATININE RATIO 14; CALCIUM 8.6 MG/DL (8.5-10.1); CARBON DIOXIDE 23 MMOL/L (21-32); CHLORIDE 111 MMOL/L (98-107); CREATININE SERUM 0.56 MG/DL (0.60-1.30); GFR ESTIMATED > 60; GLUCOSE 108 MG/DL (70-105); MAGNESIUM 1.7 MG/DL (1.8-2.4); PHOSPHORUS 1.5 MG/DL (2.3-4.7); POTASSIUM 3.6 MMOL/L (3.6-5.0); SODIUM 147 MMOL/L (135-145)
[2018-02-13] MEDS ORDERED: MAGNESIUM 1 GM/100 ML IVPB 100 ML IV NR (08:00)
[2018-02-13] MEDS ORDERED: POTASSIUM PHOSPHATE INJ 30 MM in NS (IVPB) 250 ML IV NR (08:00)
[2018-02-13] MEDS: HYDROmorphone 2 MG/ML VIAL (DILAUDID) IV PRN ×4 (09:02→20:28)
--- NOTE | 2018-02-13 09:38 | Physical Therapy Evaluation ---
PT Evaluation-General Medical Diagnosis Admission Date Feb 08, 2018 at 07:59 Medical Diagnosis: Distal small bowel obstruction Onset Date: Feb 08, 2018 Therapy Diagnosis Therapy Diagnosis: General Weakness Height/Weight Height (Feet): 5 Height (Inches): 10.00 Weight (Pounds): 174 Weight (Ounces): 2.0 Precautions Precautions/Isolations: Fall Prevention, Standard Precautions Weight Bear Status Right Lower Extremity: Right Full Weight Bearing Left Lower Extremity: Left Full Weight Bearing Referral Physician: Yehuda Gabriel DO Reason for Referral: Evaluation/Treatment Medical History Additional Medical History Colon resection, Colon cancer Current History Patient reported to ER for abdominal pain. Reviewed History: Yes Social History Home: Single Level Current Living Status: Children Entry Into Home: Ramp PT Steps Into Home: 0 PT Steps Inside Home: 0 Prior/Core FIM Prior Level of Function Functional [place] Measure 0=Not Assessed/NA 4=Minimal Assistance 1=Total Assistance 5=Supervision or Setup 2=Maximal Assistance 6=Modified [place] 3=Moderate Assistance 7=Complete IndependenceIRFPAI Quality Coding Scale 6 Independent with activity with or without an assistive device 5 Patient requires set up or clean up by helper. Patient completes activity by themselves 4 Supervision or touching assist (CGA). [place] provide cues , steadying assist 3 The helper provides less than half the effort to complete the activity 2 The helper provides more than half the effort to complete the activity 1 Dependent. The helper does all the effort to complete an activity 7 Patient refused to complete or attempt activity 9 The patient did not perform the activity before the current illness or injury 88 Not attempted due to Medical conditions or safety concerns Bed Mobility: 7 Transfers (B,C,W/C) (FIM): 7 Gait: 7 Stairs: 7 PT Evaluation-Current Subjective Pt awake in bed watching tv when PT entered room. Pt agreed to evaluation by PT. Pain Numeric Pain Scale: 0-No Pain Location: No Pain Reported Location Body Site: Abdomen Pain Description: Acute Objective Patient Orientation: Normal For Age Attachments: NG Tube, IV ROM/Strength ROM Upper Extremities WNL ROM Lower Extremities WNL Strength Upper Extremities NT Strength Lower Extremities 4+/5 BLE Integumentary/Posture Integumentary refer to nursing notes Bowel Incontinence: No Posture WFL Neuromuscular (Tone, Coordination, Reflexes) grossly intact Sensory Vision: Functional Hearing: Functional Sensation Right Upper Extremit: Intact Sensation Left Upper Extremity: Intact Sensation Right Lower Extremit: Intact Sensation Left Lower Extremity: Intact Transfers Functional [place] Measure 0=Not Assessed/NA 4=Minimal Assistance 1=Total Assistance 5=Supervision or Setup 2=Maximal Assistance 6=Modified [place] 3=Moderate Assistance 7=Complete [place] Transfers (B, C, W/C) (FIM): 5 Scootin Rollin Supine to/from Sit: 5 Sit to/from Stand: 5 Gait Mode of Locomotion: Walk Anticipated Mode of Locomotion: Walk Gait (FIM): 5 Distance (FIM): 3=150 ft Distance: 300' Gait Level of Assist: 5 Gait Persons Needed: 1 Gait Assistive Device: FWW Balance Sitting Static: Good Sitting Dynamic: Good Standing Static: Good Standing Dynamic: Good Assessment/Needs Pt able to ambulate for 300' with a FWW requring SBA. Patient did not show any signs of fatigue during ambulation and did not report any pain. Patient will continue to get ambulate with PT daily. Rehab Potential: Good PT Sand System Operator Goals Residential Goals PT Sand System Operator Goals Time Frame: Feb 20, 2018 Transfers (B,C,W/C) (FIM): 7 Gait (FIM): 7 Gait distance (FIM): 3=150 ft Distance: 400' Gait Level of Assist: 7 Gait Assistive Device: None, FWW PT Plan Problem List Problem List: Activity Tolerance, Functional Strength, Safety, Balance, Gait, Transfer, Bed Mobility, ROM Treatment/Plan Treatment Plan: Continue Plan of Care Treatment Plan: Bed Mobility, Education, Functional Activity Gerry, Functional Strength, Group Therapy, Gait, Safety, Therapeutic Exercise, Transfers Treatment Duration: Feb 20, 2018 Frequency: 6 times per week Estimated Hrs Per Day: .25 hour per day Patient and/or Family Agrees t: Yes Discharge Recommendations Therapy D/C Recommendations: Home w/ Family Support Time/GCodes Time In: 838 Time Out: 850 Total Billed Treatment Time: 12 Total Billed Treatment 1 Visit [facility] - -12 mins G Codes Necessary: SHANTELL Davis PT Feb 13, 2018 09:38
[2018-02-13] MEDS: ENOXAPARIN 40 MG/0.4 ML (LOVENOX) SYR SC SCH (15:50)
--- NOTE | 2018-02-13 17:34 | Progress Note ---
Subjective Date Seen by a Provider: Feb 13, 2018 Time Seen by a Provider: 17:28 Subjective/Events-last exam Patient feeling better today. She is passing some flatus and having had 2 bowel movements. Patient denies any nausea vomiting fever sweats chills shortness of breath or chest pain. Pain control. Objective Exam Vital Signs Date Time Temp Pulse Resp B/P (MAP) Pulse Ox O2 Delivery O2 Flow Rate FiO2 02/13/18 15:55 99.1 84 22 156/74 (101) 92 Room Air 02/13/18 12:00 97.7 72 20 142/80 (100) 93 Room Air 02/13/18 09:00 Room Air 02/13/18 08:00 99.4 82 20 144/80 (101) 92 Room Air 02/13/18 05:00 98.9 72 18 166/81 (109) 92 Room Air 02/13/18 04:00 99.6 77 18 177/79 (111) 93 Room Air 02/13/18 00:00 99.7 88 18 156/76 (102) 90 Room Air 02/12/18 19:14 99.8 83 20 157/74 (101) 93 Room Air I & O 02/13/18 07:00 Intake Total 3260 ml Output Total 3025 ml Balance 235 ml Capillary Refill : Less Than 3 Seconds General Appearance: No Apparent Distress, WD/WN HEENT: PERRL/EOMI Neck: Non Tender, Supple Respiratory: Chest Non Tender, No Accessory Muscle Use, No Respiratory Distress Cardiovascular: Regular Rate, Rhythm, No Murmur Peripheral Pulses: 2+ Radial Pulses (R), 2+ Radial Pulses (L) Gastrointestinal: distended (Minimally), tenderness (Incisional, no signs of infection) Extremity: Non Tender Neurologic/Psychiatric: Alert, Oriented x3 Skin: Normal Color, Warm/Dry Lymphatic: No Adenopathy Results Lab Laboratory Tests 02/12/18 18:06: Glucometer 102 02/13/18 00:20: Glucometer 93 02/13/18 05:04: Glucometer 96 02/13/18 06:05: White Blood Count 6.8, Red Blood Count 3.73L, Hemoglobin 11.6, Hematocrit 35, Mean Corpuscular Volume 94, Mean Corpuscular Hemoglobin 31, Mean Corpuscular Hemoglobin Concent 33, Red Cell Distribution Width 12.3, Platelet Count 163, Mean Platelet Volume 9.1, Sodium Level 147H, Potassium Level 3.6, Chloride Level 111H, Carbon Dioxide Level 23, Anion Gap 13, Blood Urea Nitrogen 8, Creatinine 0.56L, Estimat Glomerular Filtration Rate > 60, BUN/Creatinine Ratio 14, Glucose Level 108H, Calcium Level 8.6, Phosphorus Level 1.5L, Magnesium Level 1.7L 02/13/18 12:11: Glucometer 88 Microbiology 02/08/18 Blood Culture - Final, Complete No growth 02/10/18 MRSA Screen - Final, Complete MRSA not isolated Assessment/Plan Assessment/Plan Assessment/Plan Small bowel obstruction, history of colon cancer, renal mass, status post exploratory laparotomy lysis of adhesions and release of small bowel obstruction , hypophosphatemia pull ng start clears Increase activity Physical therapy consult Replace phosphorus mag replace repeat labs in the morning SCDs and Lovenox for DVT prophylaxis Clinical Quality Measures DVT/VTE Risk/Contraindication: Risk Factor Score Per Nursin RFS Level Per Nursing on Admit: 4+=Very High MARICHUY GILL DO Feb 13, 2018 17:34
[2018-02-14] MEDS: inSUlin ASPART (NovoLOG) 1 UNIT/0.01 ML (CHARGE PER UNIT) SC SCH ×4 (00:12→18:35)
[2018-02-14 03:20] VITALS: BP 157/74
[2018-02-14 06:40] LABS: HEMOGLOBIN 11.3 G/DL (11.5-16.0); MEAN PLATELET VOLUME 9.1 FL (7.4-10.4); RED BLOOD COUNT 3.6 10^6/uL (4.35-5.85); RED CELL DISTRIBUTION WIDTH 12.1 % (10.0-14.5); WHITE BLOOD COUNT 5.4 10^3/uL (4.3-11.0)
[2018-02-14 06:57] LABS: BUN/CREATININE RATIO 13; CALCIUM 8.1 MG/DL (8.5-10.1); CARBON DIOXIDE 24 MMOL/L (21-32); CHLORIDE 111 MMOL/L (98-107); CREATININE SERUM 0.53 MG/DL (0.60-1.30); GFR ESTIMATED > 60; GLUCOSE 117 MG/DL (70-105); MAGNESIUM 1.7 MG/DL (1.8-2.4); PHOSPHORUS 1.8 MG/DL (2.3-4.7); POTASSIUM 3.3 MMOL/L (3.6-5.0); SODIUM 144 MMOL/L (135-145)
[2018-02-14] MEDS: NS IV 1000 ML 1,000 ML IV SCH ×2 (07:19→16:13)
[2018-02-14 08:00] VITALS: BP 153/75
--- NOTE | 2018-02-14 11:50 | Physical Therapy Daily Note ---
PT Daily Note-Current Subjective Pt awake in bed watching tv when PT entered room. Pt agreed to get up and go for a walk. Pain Numeric Pain Scale: 0-No Pain Location: No Pain Reported Mental Status Patient Orientation: Normal For Age Attachments: IV Transfers Functional [employer] Measure 0=Not Assessed/NA 4=Minimal Assistance 1=Total Assistance 5=Supervision or Setup 2=Maximal Assistance 6=Modified [employer] 3=Moderate Assistance 7=Complete [employer] IRFPAI Quality Coding Scale 6 Independent with activity with or without an assistive device 5 Patient requires set up or clean up by helper. Patient completes activity by themselves 4 Supervision or touching assist (CGA). [place] provide cues , steadying assist 3 The helper provides less than half the effort to complete the activity 2 The helper provides more than half the effort to complete the activity 1 Dependent. The helper does all the effort to complete an activity 7 Patient refused to complete or attempt activity 9 The patient did not perform the activity before the current illness or injury 88 Not attempted due to Medical conditions or safety concerns Transfers (B, C, W/C) (FIM): 5 Scootin Rollin Supine to/from Sit: 5 Sit to/from Stand: 5 Weight Bearing Right Lower Extremity: Right Full Weight Bearing Left Lower Extremity: Left Full Weight Bearing Gait Training Gait (FIM): 5 Distance (FIM): 3=150 ft Distance: 400' Gait Level of Assist: 5 Gait Persons Needed: 1 Gait Assistive Device: FWW Assessment Patient was able to ambulate for 400' with a FWW requiring SBA. Patient does not show any signs of fatigue and has been informed that she can get up and walk with nursing in the future if someone is guiding IV pole for her. PT Retirement Goals Retirement Goals PT Impregnator And Drier Goals Time Frame: Feb 20, 2018 Transfers (B,C,W/C) (FIM): 7 Gait (FIM): 7 Gait distance (FIM): 3=150 ft Distance: 400' Gait Level of Assist: 7 Gait Assistive Device: None, FWW PT Plan Problem List Problem List: Activity Tolerance, Functional Strength, Gait Treatment/Plan Treatment Plan: Continue Plan of Care Treatment Plan: Bed Mobility, Education, Functional Activity Gerry, Functional Strength, Group Therapy, Gait, Safety, Therapeutic Exercise, Transfers Treatment Duration: Feb 20, 2018 Frequency: 6 times per week Estimated Hrs Per Day: .25 hour per day Patient and/or Family Agrees t: Yes Time/GCodes Time In: 1100 Time Out: 1108 Total Billed Treatment Time: 8 Total Billed Treatment 1 Visit FA - 8' SHANTELL BURGESS PT Feb 14, 2018 11:50
[2018-02-14 12:00] VITALS: BP 148/72
[2018-02-14] MEDS ORDERED: MAGNESIUM 1 GM/100 ML IVPB 100 ML IV ONE (14:45)
[2018-02-14] MEDS ORDERED: POTASSIUM PHOSPHATE INJ 30 MM in NS (IVPB) 250 ML IV ONE ×2 (14:45→15:45)
--- NOTE | 2018-02-14 14:47 | Progress Note ---
Subjective Date Seen by a Provider: Feb 14, 2018 Time Seen by a Provider: 14:44 Subjective/Events-last exam +flatus and bm. tolerating diet. pain controlled. denies n/v fever sweats chills shortness of breath or chest pain. mag/phos low Objective Exam Vital Signs Date Time Temp Pulse Resp B/P (MAP) Pulse Ox O2 Delivery O2 Flow Rate FiO2 02/14/18 12:00 98.9 74 18 148/72 (97) 95 Room Air 02/14/18 10:07 Room Air 02/14/18 09:00 Room Air 02/14/18 08:00 99.5 78 18 153/75 (101) 94 Room Air 02/14/18 03:20 99.3 75 18 157/74 (101) 91 Room Air 02/13/18 23:40 98.9 74 18 147/74 (98) 93 Room Air 02/13/18 20:00 Room Air 02/13/18 19:25 98.4 86 20 166/78 (107) 96 Room Air 02/13/18 15:55 99.1 84 22 156/74 (101) 92 Room Air I & O 02/14/18 07:00 Intake Total 2265 ml Output Total 2650 ml Balance -385 ml Capillary Refill : Less Than 3 Seconds General Appearance: No Apparent Distress, WD/WN HEENT: PERRL/EOMI Neck: Non Tender, Supple Respiratory: Chest Non Tender, No Accessory Muscle Use, No Respiratory Distress Cardiovascular: Regular Rate, Rhythm, No Murmur Peripheral Pulses: 2+ Radial Pulses (R), 2+ Radial Pulses (L) Gastrointestinal: tenderness (Incisional minimal, no signs of infection) Extremity: Non Tender Neurologic/Psychiatric: Alert, Oriented x3 Skin: Normal Color, Warm/Dry Lymphatic: No Adenopathy Results Lab Laboratory Tests 02/13/18 18:24: Glucometer 121H 02/13/18 23:45: Glucometer 122H 02/14/18 05:23: Glucometer 131H 02/14/18 06:25: White Blood Count 5.4, Red Blood Count 3.60L, Hemoglobin 11.3L, Hematocrit 33L, Mean Corpuscular Volume 93, Mean Corpuscular Hemoglobin 31, Mean Corpuscular Hemoglobin Concent 34, Red Cell Distribution Width 12.1, Platelet Count 166, Mean Platelet Volume 9.1, Sodium Level 144, Potassium Level 3.3L, Chloride Level 111H, Carbon Dioxide Level 24, Anion Gap 9, Blood Urea Nitrogen 7, Creatinine 0.53L, Estimat Glomerular Filtration Rate > 60, BUN/Creatinine Ratio 13, Glucose Level 117H, Calcium Level 8.1L, Phosphorus Level 1.8L, Magnesium Level 1.7L 02/14/18 12:11: Glucometer 100 Microbiology 02/08/18 Blood Culture - Final, Complete No growth 02/10/18 MRSA Screen - Final, Complete MRSA not isolated Assessment/Plan Assessment/Plan Assessment/Plan Small bowel obstruction, history of colon cancer, renal mass, status post exploratory laparotomy lysis of adhesions and release of small bowel obstruction , hypophosphatemia, hypomagnesemia advance to dysphagia diet Increase activity Physical therapy consult Replace phosphorus mag replace repeat labs in the morning SCDs and Lovenox for DVT prophylaxis Clinical Quality Measures DVT/VTE Risk/Contraindication: Risk Factor Score Per Nursin RFS Level Per Nursing on Admit: 4+=Very High MARICHUY GILL DO Feb 14, 2018 14:47
[2018-02-14 16:01] VITALS: BP 171/76
[2018-02-14] MEDS: ENOXAPARIN 40 MG/0.4 ML (LOVENOX) SYR SC SCH (16:07)
[2018-02-14 20:05] VITALS: BP 148/69
[2018-02-15 00:03] VITALS: BP 142/66
[2018-02-15] MEDS: inSUlin ASPART (NovoLOG) 1 UNIT/0.01 ML (CHARGE PER UNIT) SC SCH ×3 (01:40→12:33)
[2018-02-15] MEDS: NS IV 1000 ML 1,000 ML IV SCH ×2 (01:48→12:33)
[2018-02-15 04:01] VITALS: BP 140/62
[2018-02-15 06:07] LABS: MEAN PLATELET VOLUME 9.1 FL (7.4-10.4); RED BLOOD COUNT 3.53 10^6/uL (4.35-5.85); RED CELL DISTRIBUTION WIDTH 12.2 % (10.0-14.5); WHITE BLOOD COUNT 4.5 10^3/uL (4.3-11.0)
[2018-02-15 06:29] LABS: BUN/CREATININE RATIO 10; CALCIUM 8.1 MG/DL (8.5-10.1); CARBON DIOXIDE 24 MMOL/L (21-32); CHLORIDE 110 MMOL/L (98-107); CREATININE SERUM 0.51 MG/DL (0.60-1.30); GFR ESTIMATED > 60; GLUCOSE 114 MG/DL (70-105); MAGNESIUM 1.6 MG/DL (1.8-2.4); PHOSPHORUS 2.6 MG/DL (2.3-4.7); POTASSIUM 3.2 MMOL/L (3.6-5.0); SODIUM 142 MMOL/L (135-145)
[2018-02-15] MEDS ORDERED: ACHD5005 PO (07:02)
[2018-02-15] MEDS ORDERED: DOCU-143 PO (07:02)
--- NOTE | 2018-02-15 07:03 | Discharge Inst-Simple/Standard ---
Discharge Inst-Standard Discharge Medications New, Converted or Re-Newed RX: RX on Chart Patient Instructions/Follow Up Plan of Care/Instructions/FU: 2 weeks Harvey Activity as Tolerated: No Discharge Diet: Soft Diet (advance to regular in 2 days.) Other Inst to Patient Follow up Appt: Make appointment for 2 week. Instructions: No lifting greater than 10 pounds. No strenuous activity. May shower, no tub bath or soaking. Use incentive spirometer at home as directed. No Smoking Skin/Wound Care: Keep area clean and dry. Symptoms to Report: Appetite Changes, Extremity Discoloration, Numbness/Tingling, Swelling Increased , Bleeding Excessive, Eyesight Changes, Pain Increased, Urine Color Change, Constipation(Persistent), Fever over 101 degree F, Pain/Pressure in chest, Urinating Difficulty, Cough Up/Vomit Blood, Heart Beat Irreg/Pounding, Pain/ Pressure in jaw, Vaginal Bleeding Increase, Cramps in feet or legs, Lightheadedness, Pain/Pressure in shoulder, Diarrhea(Persistent), Memory Changes Suddenly, Questions/Concerns, Weight gain consecutive days, Dizziness/ Fainting, Nausea/Vomiting, Shortness of Breath, Weight gain over 2 pounds If questions or concerns contact your physician Or seek help at emergency department. MARICHUY GILL DO Feb 15, 2018 07:03
--- NOTE | 2018-02-15 07:06 | Progress Note ---
Subjective Date Seen by a Provider: Feb 15, 2018 Time Seen by a Provider: 07:04 Subjective/Events-last exam tolerating diet. pain controlled. + flatus/bm. denies n/v fever sweats chills shortness of breath or chest pain. Objective Exam Vital Signs Date Time Temp Pulse Resp B/P (MAP) Pulse Ox O2 Delivery O2 Flow Rate FiO2 02/15/18 04:01 98.6 72 18 140/62 (88) 94 Room Air 02/15/18 00:03 98.8 82 18 142/66 (91) 94 Room Air 02/14/18 20:05 99.3 79 14 148/69 (95) 94 Room Air 02/14/18 20:00 Room Air 02/14/18 16:01 98.7 80 20 171/76 (107) 94 Room Air 02/14/18 12:00 98.9 74 18 148/72 (97) 95 Room Air 02/14/18 10:07 Room Air 02/14/18 09:00 Room Air 02/14/18 08:00 99.5 78 18 153/75 (101) 94 Room Air I & O 02/15/18 07:00 Intake Total 1330 ml Output Total 2425 ml Balance -1095 ml Capillary Refill : Less Than 3 Seconds General Appearance: No Apparent Distress, WD/WN HEENT: PERRL/EOMI Neck: Non Tender, Supple Respiratory: Chest Non Tender, No Accessory Muscle Use, No Respiratory Distress Cardiovascular: Regular Rate, Rhythm, No Murmur Peripheral Pulses: 2+ Radial Pulses (R), 2+ Radial Pulses (L) Gastrointestinal: tenderness (Incisional minimal, no signs of infection) Extremity: Non Tender Neurologic/Psychiatric: Alert, Oriented x3 Skin: Normal Color, Warm/Dry Lymphatic: No Adenopathy Results Lab Laboratory Tests 02/14/18 12:11: Glucometer 100 02/14/18 18:28: Glucometer 136H 02/15/18 01:32: Glucometer 112H 02/15/18 05:06: Glucometer 119H 02/15/18 05:27: White Blood Count 4.5, Red Blood Count 3.53L, Hemoglobin 11.0L, Hematocrit 32L, Mean Corpuscular Volume 91, Mean Corpuscular Hemoglobin 31, Mean Corpuscular Hemoglobin Concent 34, Red Cell Distribution Width 12.2, Platelet Count 175, Mean Platelet Volume 9.1, Sodium Level 142, Potassium Level 3.2L, Chloride Level 110H, Carbon Dioxide Level 24, Anion Gap 8, Blood Urea Nitrogen 5L, Creatinine 0.51L, Estimat Glomerular Filtration Rate > 60, BUN/Creatinine Ratio 10, Glucose Level 114H, Calcium Level 8.1L, Phosphorus Level 2.6, Magnesium Level 1.6L Microbiology 02/08/18 Blood Culture - Final, Complete No growth 02/10/18 MRSA Screen - Final, Complete MRSA not isolated Assessment/Plan Assessment/Plan Assessment/Plan Small bowel obstruction, history of colon cancer, renal mass, status post exploratory laparotomy lysis of adhesions and release of small bowel obstruction , hypophosphatemia, hypomagnesemia tolerating diet Increase activity doing well patient wanting to go home. will dc home today and have follow up. Will need follow up on renal mass as well which patient understands. Clinical Quality Measures DVT/VTE Risk/Contraindication: Risk Factor Score Per Nursin RFS Level Per Nursing on Admit: 4+=Very High MARICHUY GILL DO Feb 15, 2018 07:06
[2018-02-15 08:00] VITALS: BP 144/85
--- NOTE | 2018-02-16 03:27 | DISCHARGE SUMMARY ---
DATE OF SERVICE: ADMITTING PHYSICIAN: Dr. Gabriel. CONSULTING PHYSICIAN: Dr. Crisostomo for medical management. ADMISSION DIAGNOSES: Small bowel obstruction, history of colon cancer, renal mass, right. DISCHARGE DIAGNOSES: Small bowel obstruction, history of colon cancer, renal mass status post exploratory laparotomy, lysis of adhesions, release of small bowel obstruction, hypophosphatemia, hypomagnesemia, renal masses, right side. HOSPITAL COURSE: The patient is a 72-year-old female who presented with a small bowel obstruction to the hospital. She had a CT scan showing that is consistent with bowel obstruction, also a slightly enlarging renal mass. The patient was admitted and was given conservative measures for treatment of the small bowel obstruction. She had NG tube. She small bowel obstruction, which was not able to demonstrate any improvement. Conservative measures failed and the patient was not improving; therefore, the patient was taken to the operating room on 02/10/2018 and exploratory laparotomy with lysis of adhesions and release of small bowel obstruction was performed. The patient postoperatively was continued to be n.p.o. Once passing flatus, her NG tube was removed and her diet was slowly advanced as the patient was tolerating. The patient had some electrolyte abnormalities, which were replaced. Physical therapy worked with the patient as well. She continued to improve until discharge on 02/15/2018. The patient's medication reconciled. Please see computer for discharge information and followup. Job ID: [id number] DocumentID: [id number] Dictated Date: 02/15/2018 07:10:24 Rooming House Operator Date: 02/16/2018 03:26:49 Dictated By: MARICHUY GABRIEL DO
== END 2018-02-15 13:10 | disposition home or self-care (01) | DRG 337 ==
LOC: EDUNIT# 05:38 → ER 05:39 → 4TH 07:59
PROVIDERS: ADMIT Surgery; ATTEND Surgery
PROC: 0DN80ZZ Release Small Intestine, Open Approach (ICD-10-PCS; principal; 2018-02-10 11:24)
DX: K46.0 Unspecified abdominal hernia with obstruction, without gangrene (principal); E83.39 Other disorders of phosphorus metabolism; E83.42 Hypomagnesemia; R73.9 Hyperglycemia, unspecified; R03.0 Elevated blood-pressure reading, without diagnosis of hypertension; N28.1 Cyst of kidney, acquired; R16.0 Hepatomegaly, not elsewhere classified; Z87.891 Personal history of nicotine dependence; Z85.038 Personal history of other malignant neoplasm of large intestine; Z90.49 Acquired absence of other specified parts of digestive tract; Z92.21 Personal history of antineoplastic chemotherapy
CPT/HCPCS: 36415; 71045; 74018; 74177; 74250; 80048; 80053; 82962; 83605; 83690; 83735; 84100; 84484; 85025; 85027; 87040; 87081; 93005; 94664; 94760; 96361; 96374; 96375

== ENCOUNTER → 2018-03-07 | Outpatient (CLI) | payer BC, MEDICARE ==
[~2018-03-07] MED LIST changes: +GADOBUTROL 7.5 MMOL/7.5 ML (GADAVIST) VIAL IV ONE
--- NOTE | 2018-03-07 16:33 | Diagnostic Imaging Report ---
PROCEDURE: MR imaging abdomen with and without contrast. TECHNIQUE: Multiplanar/multisequence MR imaging of the abdomen was performed with and without contrast. DATE: March 07, 2018. INDICATION: 72-year-old female, history of colon cancer. Evaluation of renal mass. COMPARISON: CT abdomen/pelvis of February 08, 2018. CT chest, abdomen, and pelvis of May 24, 2017. MRI abdomen of March 25, 2017. Additional CT abdomen and pelvis imaging dating back to August 17, 2016. FINDINGS: There is no diffuse loss of signal throughout the liver on the out of phase images to specifically suggest diffuse fatty infiltration of the liver. The outer liver contours are not grossly nodular. There is a T1 hypointense lesion in the right lobe of the liver which currently measures 1.3 x 1.1 cm in axial dimension. The lesion is T2 hyperintense and does demonstrate internal nodular enhancement. The nodular enhancement is perhaps best appreciated on series 903/image 60 and adjacent sequential images. The enhancement pattern of the lesion is not diagnostic for hemangioma and also is not typical for other benign lesion such as focal nodular hyperplasia. Although the lesion has not appreciably changed in size dating back to August 17, 2016, this is not documentation of long-term stability. Especially given the history of colon cancer and the right renal lesion which will be described below, this does raise concern for potential metastasis. The lesion does not have an imaging appearance diagnostic for a benign etiology. Biopsy for definitive diagnosis is recommended. There are T2 hyperintense lesions within the left lobe of the liver on axial T2 sequence image 4 and image 8 which do not enhance and are consistent with benign hepatic cysts. Very small portions of the dome of the liver are not entirely included in the bworh-um-hrix on axial post contrast evaluation. The main, right, and left portal veins are patent. The gallbladder is unremarkable. There is no intrahepatic or extrahepatic bile duct dilation. There is no dilation of the main pancreatic duct. There is no identified pancreatic lesion. The spleen measures 13 cm in craniocaudal dimension and is not abnormally enlarged. The adrenal glands are unremarkable. There is a heterogeneous signal right renal mass which measures currently 2.9 x 1.8 cm in axial dimension. There does appear to be internal enhancement. The lesion does appear to be increasing in size. The imaging appearance is highly concerning for renal cell carcinoma. Workup for definitive diagnosis is recommended. There is a T2 hyperintense nonenhancing right renal lesion measuring 7 mm in size on axial post contrast image 56, compatible with a benign cyst. There is also a subcentimeter benign left renal cyst on axial image 42. There is no hydronephrosis. There is no identified abnormally enlarged lymph node within the abdomen which meets size criteria for adenopathy. There is no identified abnormally enhancing bone lesion within the included xbzno-vg-nwyb of imaging. IMPRESSION: 1. Heterogeneous signal enhancing right renal mass which is increasing in size and currently measures 2.9 x 1.8 cm, highly concerning for renal cell carcinoma. Recommend workup for definitive diagnosis. 2. Nonspecific lesion within the right lobe of the liver measuring currently 1.3 x 1.1 cm which is not appreciably changed in size dating back to August 17, 2016; however, there is central nodular enhancement within the lesion and the lesion does not have an imaging appearance diagnostic for a specific benign liver lesion. Particularly given the provided history of colon cancer and the right renal lesion concerning for malignancy, a metastatic lesion is in the differential diagnosis and biopsy of the lesion for definitive diagnosis is recommended. 3. No evidence of cirrhosis. Benign left hepatic cysts. 4. No identified abnormally enlarged lymph node within the abdomen specifically meeting size criteria for adenopathy. Report faxed to Dr. Gabriel at 4:35 p.m. 03/07/2018/cb Dictated by: Dictated on workstation # [id number]
== END ==
LOC: RAD 11:51
PROVIDERS: ATTEND Surgery
DX: N28.89 Other specified disorders of kidney and ureter (principal); K76.89 Other specified diseases of liver; Z85.038 Personal history of other malignant neoplasm of large intestine
CPT/HCPCS: 74183

== ENCOUNTER 2018-03-08 14:20 | Outpatient (RCR) | payer BC, MEDICARE ==
[2018-01-31 09:06] LABS: BASOPHILS % (AUTO) 0 % (0-10); EOSINOPHILS # (AUTO) 0.2 10^3/uL (0.0-0.3); EOSINOPHILS % (AUTO) 3 % (0-10); HEMATOCRIT 38 % (35-52); HEMOGLOBIN 12.7 G/DL (11.5-16.0); LYMPHOCYTES % (AUTO) 19 % (12-44); MEAN CORPUSCULAR HEMOGLOBIN 31 PG (25-34); MEAN CORPUSCULAR HGB CONC 33 G/DL (32-36); MEAN CORPUSCULAR VOLUME 92 FL (80-99); MEAN PLATELET VOLUME 9.3 FL (7.4-10.4); MONOCYTES # (AUTO) 0.5 X 10^3 (0.0-1.0); MONOCYTES % (AUTO) 9 % (0-12); NEUTROPHILS # (AUTO) 3.5 X 10^3 (1.8-7.8); NEUTROPHILS % (AUTO) 68 % (42-75); PLATELET COUNT 154 10^3/uL (130-400); RED BLOOD COUNT 4.16 10^6/uL (4.35-5.85); RED CELL DISTRIBUTION WIDTH 12.3 % (10.0-14.5); WHITE BLOOD COUNT 5.1 10^3/uL (4.3-11.0)
[2018-01-31 09:29] LABS: ALANINE AMINOTRANSFERASE 11 U/L (0-55); ALBUMIN 3.9 GM/DL (3.2-4.5); ALKALINE PHOSPHATASE 58 U/L (40-136); BILIRUBIN,TOTAL 0.7 MG/DL (0.1-1.0); BUN/CREATININE RATIO 15; CALCIUM 9.8 MG/DL (8.5-10.1); CARBON DIOXIDE 25 MMOL/L (21-32); CHLORIDE 112 MMOL/L (98-107); GFR ESTIMATED > 60; GLUCOSE 128 MG/DL (70-105); POTASSIUM 4.2 MMOL/L (3.6-5.0); SODIUM 144 MMOL/L (135-145); TOTAL PROTEIN 6.3 GM/DL (6.4-8.2)
[~2018-03-08 14:20] MED LIST changes: -GADOBUTROL 7.5 MMOL/7.5 ML (GADAVIST) VIAL IV ONE
== END 2018-03-30 | disposition home or self-care (01) ==
LOC: ONC 14:20
PROVIDERS: ATTEND Internal Medicine Hematology & Oncology
DX: C18.7 Malignant neoplasm of sigmoid colon (principal); C18.2 Malignant neoplasm of ascending colon; D50.9 Iron deficiency anemia, unspecified; K59.00 Constipation, unspecified; Z90.49 Acquired absence of other specified parts of digestive tract; Z87.891 Personal history of nicotine dependence; Z45.2 Encounter for adjustment and management of vascular access device
CPT/HCPCS: 36591; 80053; 82378; 85025; 96523

== ENCOUNTER 2018-03-27 08:32 | Outpatient (CLI) | payer BC, MEDICARE ==
[2018-03-27] VITALS (15 sets, daily range): BP systolic 126–156; BP diastolic 60–84
[~2018-03-27] VITALS: Ht 177.8 cm; Wt 79.0 kg
[2018-03-27 09:09] LABS: HEMOGLOBIN 11.9 G/DL (11.5-16.0); MEAN PLATELET VOLUME 9.4 FL (7.4-10.4); RED BLOOD COUNT 3.9 10^6/uL (4.35-5.85); RED CELL DISTRIBUTION WIDTH 12.1 % (10.0-14.5); WHITE BLOOD COUNT 3.6 10^3/uL (4.3-11.0)
[2018-03-27 09:25] LABS: PROTHROMBIN TIME PATIENT 13.2 SEC (12.2-14.7)
[2018-03-27] MEDS ORDERED: NS IV 1000 ML 1,000 ML IV STA (10:14)
[2018-03-27] MEDS ORDERED: LIDOCAINE 1% INJ 20 ML 20 ML VIAL INJ ONE (10:15)
[2018-03-27] MEDS ORDERED: fentaNYL INJECTION 100 MCG/2 ML AMP IVP ONE (10:15)
[2018-03-27] MEDS ORDERED: MIDAZOLAM 2 MG/2 ML (VERSED) VIAL IVP ONE (10:15)
[2018-03-27] MEDS ORDERED: MIDAZOLAM 2 MG/2 ML (VERSED) VIAL ONE (10:19)
[2018-03-27] MEDS ORDERED: fentaNYL INJECTION 100 MCG/2 ML AMP ONE (10:20)
[2018-03-27] MEDS ORDERED: LIDOCAINE 1% INJ 20 ML 20 ML VIAL ONE (10:20)
[2018-03-27] MEDS ORDERED: NS IV 1000 ML 1,000 ML ONE (10:28)
[2018-03-27] MEDS ORDERED: HYDROcodone/APAP 5 MG/325 MG (LORTAB) TAB PO PRN (11:30)
--- NOTE | 2018-03-27 12:45 | Diagnostic Imaging Report ---
INDICATION: Liver mass. Patient presents for CT-guided biopsy. FINDINGS: Patient brought to the CT suite, placed on table in the supine position. Axial imaging through the abdomen was performed to evaluate appropriate entry site. Procedure was performed with conscious sedation utilizing radiology nursing and constant patient monitoring. Patient was administered 0.5 mg of Versed and 50 mcg of fentanyl intravenously. Total procedure time was 12 minutes. Right abdomen was prepped and draped in the usual sterile fashion. Small amount of 1% lidocaine was utilized for local anesthesia. 18-gauge coaxial Temno needle was advanced into the right lobe of the liver. The tip was placed within the low-density lesion in the inferior right lobe. Three core biopsies were obtained. Needle was removed during injection of a blood patch. Hemostasis was obtained using manual compression. Patient tolerated the procedure well and left the department in stable condition. IMPRESSION: Successful CT-guided liver biopsy utilizing conscious sedation. Pathology results are currently pending. Dictated by: Dictated on workstation # [id number]
--- NOTE | 2018-03-27 15:26 | NUR ---
patient has no complaints, vss, continue with discharge
== END 2018-03-27 15:20 | disposition home or self-care (01) ==
LOC: SDC 08:32
PROVIDERS: ATTEND Surgery
DX: R16.0 Hepatomegaly, not elsewhere classified (principal); N28.89 Other specified disorders of kidney and ureter; Z85.038 Personal history of other malignant neoplasm of large intestine; D50.9 Iron deficiency anemia, unspecified; Z87.891 Personal history of nicotine dependence
CPT/HCPCS: 36415; 77012; 85027; 85610; 85730; 99156

== ENCOUNTER 2018-06-06 15:43 | Outpatient (RCR) | payer BC, MEDICARE ==
[2018-04-25 14:50] LABS: BASOPHILS % (AUTO) 0 % (0-10); EOSINOPHILS # (AUTO) 0.2 10^3/uL (0.0-0.3); EOSINOPHILS % (AUTO) 5 % (0-10); HEMATOCRIT 38 % (35-52); HEMOGLOBIN 12.8 G/DL (11.5-16.0); LYMPHOCYTES # (AUTO) 1.1 X 10^3 (1.0-4.0); LYMPHOCYTES % (AUTO) 22 % (12-44); MEAN CORPUSCULAR HEMOGLOBIN 30 PG (25-34); MEAN CORPUSCULAR HGB CONC 34 G/DL (32-36); MEAN CORPUSCULAR VOLUME 89 FL (80-99); MEAN PLATELET VOLUME 9.3 FL (7.4-10.4); MONOCYTES # (AUTO) 0.5 X 10^3 (0.0-1.0); MONOCYTES % (AUTO) 10 % (0-12); NEUTROPHILS # (AUTO) 2.9 X 10^3 (1.8-7.8); NEUTROPHILS % (AUTO) 63 % (42-75); PLATELET COUNT 193 10^3/uL (130-400); RED CELL DISTRIBUTION WIDTH 12.5 % (10.0-14.5); WHITE BLOOD COUNT 4.7 10^3/uL (4.3-11.0)
[2018-04-25 15:08] LABS: ALANINE AMINOTRANSFERASE 14 U/L (0-55); ALKALINE PHOSPHATASE 64 U/L (40-136); BILIRUBIN,TOTAL 0.5 MG/DL (0.1-1.0); BUN/CREATININE RATIO 14; CALCIUM 9.3 MG/DL (8.5-10.1); CARBON DIOXIDE 22 MMOL/L (21-32); CHLORIDE 111 MMOL/L (98-107); CREATININE SERUM 0.79 MG/DL (0.60-1.30); GFR ESTIMATED > 60; GLUCOSE 138 MG/DL (70-105); POTASSIUM 3.9 MMOL/L (3.6-5.0); SODIUM 143 MMOL/L (135-145); TOTAL PROTEIN 6.6 GM/DL (6.4-8.2)
== END 2018-07-24 | disposition home or self-care (01) ==
LOC: ONC 15:43
PROVIDERS: ATTEND Internal Medicine Hematology & Oncology
DX: C18.7 Malignant neoplasm of sigmoid colon (principal); C18.2 Malignant neoplasm of ascending colon; D50.9 Iron deficiency anemia, unspecified; K59.00 Constipation, unspecified; Z90.49 Acquired absence of other specified parts of digestive tract; Z87.891 Personal history of nicotine dependence
CPT/HCPCS: 36591; 80053; 82378; 85025; 96523

== ENCOUNTER 2018-08-29 05:53 | Outpatient (CLI) | payer BC, MEDICARE ==
[~2018-08-29] VITALS: Ht 177.8 cm; Wt 76.3 kg
[2018-08-29] MEDS ORDERED: L GA1CAP2 PO (15:17)
[2018-08-29] MEDS ORDERED: MULT-178 PO (15:17)
== END 2018-08-29 15:21 | disposition home or self-care (01) ==
LOC: PREOP 05:53
PROVIDERS: ATTEND Surgery
DX: Z01.818 Encounter for other preprocedural examination (principal)

== ENCOUNTER 2018-09-05 12:09 | Day surgery (SDC) | payer BC, MEDICARE ==
[~2018-09-05] VITALS: Ht 177.8 cm; Wt 76.3 kg
[~2018-09-05 12:09] MED LIST changes: +L GA1CAP2 PO; +MULT-178 PO
[2018-09-05 12:25] VITALS: BP 126/70
[2018-09-05] MEDS ORDERED: LACTATED RINGERS 1,000 ML IV PRN (12:30)
--- OUTSIDE RECORDS SUMMARY | 2018-09-05 12:50 | XMS REPORT | Clinical Summary ---
Author [facility] Address Unknown Phone Unavailable Care Team Providers Care Manager Practice Name Role Phone No Pcp, Na PCP Unavailable Source Comments Some departments are not documenting in the electronic medical record. If you d o not see the information that you expected, contact Release of Information in [facility] Health Information Management department at [phone] for further assistan ce in locating additional records.[facility] Allergies No Known Allergies Medications End Date Status Medication Sig Dispensed Refills Start Date Active folic Take 1 tablet 0 acid/multivit-min/lutein by mouth (CENTRUM SILVER PO) daily. Active Lactobac no.41-Bifidobact Take 1 0 no.7 (PROBIOTIC-10) 70 mg capsule by (3 billion cell) cap mouth daily. Active aspirin/acetaminophen/caf Take 1 tablet 0 feine(+) (EXCEDRIN EXTRA by mouth as STRENGTH) 250/250/65 mg Needed. tab Active acetaminophen (TYLENOL) Take 325 mg 0 325 mg tablet by mouth as Needed for Pain. Active docusate (COLACE) 100 mg Take 100 mg 0 capsule by mouth as Needed for Constipation. 08/11/2018 Discontinued oxyCODONE (ROXICODONE, Take one 30 tablet 0 OXY-IR) 5 mg tablet by 9 tabletIndications: mouth every 4 Malignant neoplasm of hours as right kidney (HCC) needed for Pain 08/11/2018 Discontinued ondansetron (ZOFRAN) 4 mg Take one 20 tablet 0 tabletIndications: tablet by 9 Malignant neoplasm of mouth every 6 right kidney (HCC) hours as needed for Nausea or Vomiting. Active Problems Problem Noted Date Malignant neoplasm of right kidney 03/31/2018 Overview: Ms. Castillo is a 72-year-old female with a history of invasive moderately differential colon carcinoma diagnosed in 2016. She is undergone lap scopic sigmoid colon resection in April 2016 followed by FOLFOX therapy. During her chemotherapy, she developed an enteric perforation from colonoscopy requiring expiratory laparotomy and right hemicolectomy. Pathology from the right bacilio-colectomy also revealed colon carcinoma. She is completed her FOLFOX regimen but surveillance imaging has revealed a 1.8; hypodense lesion within the right hepatic lobe. She is also developed a right renal mass which first measured 2.1 cm, but has now been shown to increase in size of 2.9 cm. She has subsequently undergone CT-guided needle biopsy of the liver mass, the pathology of which is pending. L ast Assessment & Plan: We reviewed Ms. Castillo's history and imaging with her. We discussed the nature of solid renal masses and explained that 80% or more of these masses are expected to be malignant. We explained that given her extensive surgical history, she is not a good surgical candidate for partial or radical nephrectomy. Given the size of this mass and the low likelihood of renal metastasis to liver, she is a good candidate for IR ablation. We will plan to follow-up on the final pathology from the liver mass, to confirm that it is of colonic origin. We will then arrange for IR guided ablation and biopsy of the renal mass. 1. IR-guided biopsy and ablation of right renal mass Encounters Care Team Description Date Type Specialty Dejon Wagner MD Malignant neoplasm of right kidney, except renal pelvis (HCC) (Primary Dx) 08/11/2018 Office Visit Urology Dejon Wagner MD 08/11/2018 Hospital Radiology Encounter from Last 3 Months Family History Medical History Relation Name Comments Hypertension Father Cancer-Colon Maternal Aunt Hypertension Maternal Aunt Hypertension Mother Relation Name Status Comments Father Maternal Aunt Mother Social History Date Tobacco Use Types Packs/Day Years Used Former Smoker Cigarettes 0.5 Smokeless Tobacco: Never Used Drinks/Week oz/Week Comments Alcohol Use No Alcohol Habits Answer Date Recorded How often do you have a drink containing alcohol? Never 03/31/2018 How many drinks containing alcohol do you have on Not asked a typical day when you are drinking? How often do you have six or more drinks on one Not asked occasion? Sex Assigned at Date Recorded Not on file Industry Job Start Date Occupation Not on file Not on file Not on file Travel End Travel History Travel Start No recent travel history available. Last Filed Vital Signs Reading Time Taken Comments Vital Sign 166/69 08/11/2018 12:46 PM CDT Blood Pressure 62 08/11/2018 12:46 PM CDT Pulse 36.8 C (98.2 F) 04/18/2018 4:05 PM PSYCHOLOGY ASSOCIATE Temperature 16 03/31/2018 9:19 AM PSYCHOLOGY ASSOCIATE Respiratory Rate 93% 04/18/2018 6:30 PM PSYCHOLOGY ASSOCIATE Oxygen Saturation - - Inhaled Oxygen Concentration 78 kg (172 lb) 08/11/2018 12:46 PM CDT Weight 180.3 cm (5' 11") 08/11/2018 12:46 PM CDT Height 23.99 08/11/2018 12:46 PM CDT Body Mass Index Plan of Treatment Health Maintenance Due Date Last Done Comments PHYSICAL (COMPREHENSIVE) 07/31/1950 EXAM DTAP/TDAP VACCINES (1 - 07/31/1961 Tdap) COLORECTAL CANCER 07/31/1993 SCREENING SHINGLES RECOMBINANT 07/31/1993 VACCINE (1 of 2) OSTEOPOROSIS 07/31/2008 SCREENING/MONITORING PNEUMONIA (PCV13/PPSV23) 07/31/2008 VACCINES (1 of 2 - PCV13) INFLUENZA VACCINE 12/19/2018 Procedures Comments Procedure Name Priority Date/Time Associated Diagnosis CT ABDOMEN WO/W CONTRAST Routine 08/11/2018 Malignant neoplasm of 11:34 AM CDT right kidney, except renal pelvis (HCC) POC CREATININE, RAD 08/11/2018 11:21 AM CDT from Last 3 Months Results * CT ABDOMEN WO/W CONTRAST (08/11/2018 11:34 AM CDT) Specimen Impressions Performed At 1.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 [facility] Ablation cavity encompasses the area of previously noted mass with no appreciable nodular enhancement to suggest residual/recurrent tumor. 2.Previous right hemicolectomy and primary anastomosis, partially visualized. No upper abdominal lymphadenopathy or ascites. 3.No significant change in size of indeterminate 1.6 cm hypoenhancing right hepatic mass. This was reportedly previously biopsied at outside institution. Correlation with biopsy results is recommended. Approved by Irineo Valencia MD on 08/11/2018 3:16 PM By my electronic signature, I attest that I have personally reviewed the images for this examination and formulated the interpretations and opinions expressed in this report Finalized by ROLF CAPONE M.D. on 08/11/2018 4:26 PM. Dictated by Irineo Valencia MD on 08/11/2018 12:54 PM. Narrative Performed At CT ABDOMEN [facility] Clinical Indication:Female, 73 years old. 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 Technique:Multiple contiguous axial images were obtained through the abdomen following the administration of IV contrast material. Noncontrast as well as hepatic arterial, portal venous and delayed imaging was obtained through the abdomen. Post processing coronal and sagittal reconstruction images were made from the axial images. IV contrast: Omnipaque-350 Bowel contrast:Water Comparison: Outside CT abdomen/pelvis on 02/08/2018. Outside MRI abdomen on 03/07/2018. FINDINGS: Lower Thorax: Visualized heart is normal in size. Mild bibasilar atelectasis and/or scarring. Liver and Biliary system: Liver is normal size. Several unchanged scattered small cysts. No significant change in 1.6 cm hypoenhancing mass in the caudal right lobe of the liver (series 8 image 29), previously 1.6 cm. No new or enlarging enhancing hepatic mass. Major portal veins are patent. No calcified gallstones. No significant biliary ductal dilation. Spleen: Unremarkable. Adrenal Glands and Kidneys: Right adrenal gland is unremarkable. Unchanged subtle nodular thickening of the left adrenal gland without discrete mass. Several subcentimeter left renal hypodensities are too small to characterize. Interval microwave ablation of previously biopsied posterior right interpolar papillary renal cell carcinoma. Ablation cavity encompasses the area of previously noted mass (series 8 image 25). No appreciable nodular enhancement at the ablation cavity to suggest residual/recurrent tumor. No new right renal mass or hydronephrosis. Pancreas and Retroperitoneum: Pancreas is unremarkable. No retroperitoneal lymphadenopathy. Aorta and Major Vessels: Abdominal aorta and common iliac arteries are normal in caliber with mild to moderate calcified atherosclerotic plaque. Retroaortic left renal vein. Bowel, Mesentery and Peritoneal space: Previous right hemicolectomy with primary anastomosis, partially visualized. Visualized large and small bowel loops are normal in caliber. No mesenteric lymphadenopathy or ascites. Abdominal wall and Osseous Structures: Thoracolumbar spondylosis. No destructive osseous lesions. Procedure Note Interface, Radiant Results - 08/11/2018 4:[address] ABDOMEN Clinical Indication: Female, 73 years old. 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 Technique: Multiple contiguous axial images were obtained through the abdomen following the administration of IV contrast material. Noncontrast as well as hepatic arterial, portal venous and delayed imaging was obtained through the abdomen. Post processing coronal and sagittal reconstruction images were made from the axial images. IV contrast: Omnipaque-350 Bowel contrast: Water Comparison: Outside CT abdomen/pelvis on 02/08/2018. Outside MRI abdomen on 03/07/2018. FINDINGS: Lower Thorax: Visualized heart is normal in size. Mild bibasilar atelectasis and/or scarring. Liver and Biliary system: Liver is normal size. Several unchanged scattered small cysts. No significant change in 1.6 cm hypoenhancing mass in the caudal right lobe of the liver (series 8 image 29), previously 1.6 cm. No new or enlarging enhancing hepatic mass. Major portal veins are patent. No calcified gallstones. No significant biliary ductal dilation. Spleen: Unremarkable. Adrenal Glands and Kidneys: Right adrenal gland is unremarkable. Unchanged subtle nodular thickening of the left adrenal gland without discrete mass. Several subcentimeter left renal hypodensities are too small to characterize. Interval microwave ablation of previously biopsied posterior right interpolar papillary renal cell carcinoma. Ablation cavity encompasses the area of previously noted mass (series 8 image 25). No appreciable nodular enhancement at the ablation cavity to suggest residual/recurrent tumor. No new right renal mass or hydronephrosis. Pancreas and Retroperitoneum: Pancreas is unremarkable. No retroperitoneal lymphadenopathy. Aorta and Major Vessels: Abdominal aorta and common iliac arteries are normal in caliber with mild to moderate calcified atherosclerotic plaque. Retroaortic left renal vein. Bowel, Mesentery and Peritoneal space: Previous right hemicolectomy with primary anastomosis, partially visualized. Visualized large and small bowel loops are normal in caliber. No mesenteric lymphadenopathy or ascites. Abdominal wall and Osseous Structures: Thoracolumbar spondylosis. No destructive osseous lesions. IMPRESSION 1. 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 Ablation cavity encompasses the area of previously noted mass with no appreciable nodular enhancement to suggest residual/recurrent tumor. 2. Previous right hemicolectomy and primary anastomosis, partially visualized. No upper abdominal lymphadenopathy or ascites. 3. No significant change in size of indeterminate 1.6 cm hypoenhancing right hepatic mass. This was reportedly previously biopsied at outside institution. Correlation with biopsy results is recommended. Approved by Irineo Valencia MD on 08/11/2018 3:16 PM By my electronic signature, I attest that I have personally reviewed the images for this examination and formulated the interpretations and opinions expressed in this report Finalized by ROLF CAPONE M.D. on 08/11/2018 4:26 PM. Dictated by Irineo Valencia MD on 08/11/2018 12:54 PM. Performing Organization Address City/State/Zipcode Phone Number [facility] * POC CREATININE, RAD (08/11/2018 11:21 AM CDT) Creatinine, POC 0.7 0.4 - 1.00 MG/DL [facility] Specimen Performing Organization Address City/[facility] [email or web address] Phone Number MAIN [facility] [address] [place] [address] from Last 3 Months Insurance Type Payer Benefit Subscriber ID Effective Phone Address Plan / Dates Group Medicare MEDICARE MEDICARE xxxxxxxxxxx [id number] PART A AND resent B PPO BCBS [facility] xxxxxxxxxxxx 2017- PREF CARE Present BLUE 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
--- OUTSIDE RECORDS SUMMARY | 2018-09-05 12:51 | XMS REPORT | Encounter Summary ---
Author Author [facility] Organization [facility] Address Unknown Phone Unavailable Care Team Providers Care Wicker Molded Candles Name Role Phone No Pcp, Na PCP Unavailable Reason for Referral * Radiology Services (Routine) Referred By Contact Referred To Contact Status Reason Specialty Diagnoses / Procedures Dejon Wagner MD [address] [place] [address] New Request Radiology Diagnoses Malignant neoplasm of right kidney (HCC) P rocedures CT ABD/PELV WO/W CONTRAST Encounter Details Care Team Description Date Type Department Constanza Hinson RN Malignant neoplasm of right kidney (HCC) (Primary Dx) 04/19/2018 Orders Only [facility] Radiology [address] [address] Social History Date Tobacco Use Types Packs/Day [...] Travel Start No recent travel history available. documented as of this encounter Plan of Treatment Order Schedule Name Type Priority Associated Diagnoses Expected: 07/18/2018 (Approximate), Expires: 04/19/2019 CT ABD/PELV WO/W CONTRAST Imaging Routine Malignant neoplasm of right kidney (HCC) documented as of this encounter Visit Diagnoses Diagnosis Malignant neoplasm of right kidney (HCC) - Primary documented in this encounter
--- OUTSIDE RECORDS SUMMARY | 2018-09-05 12:51 | XMS REPORT | Encounter Summary ---
Author Author [facility] Organization [facility] Address Unknown Phone Unavailable Care Team Providers Care Gear Machinist Name Role Phone No Pcp, Na PCP Unavailable Reason for Referral * Radiology Services (Routine) Referred By Contact Referred To Contact Status Reason Specialty Diagnoses / Procedures Dejon Wagner MD [address] [place] [address] [facility] [address] [address] No Auth Needed Radiology Diagnoses Malignant neoplasm of right kidney, except renal pelvis (HCC) P rocedures CT ABDOMEN WO/W CONTRAST Reason for Visit * Reason Comments Results Encounter Details Care Team Description Date Type Department Dejon Wagner MD [address] [place], [place] [id number] Results 04/24/2018 Telephone [facility] [address] [facility] [address] 2 [place] [id number] Social History Date Tobacco Use Types Packs/Day [...] history available. documented as of this encounter Miscellaneous Notes * Telephone Encounter - Dejon Wagner MD - 04/24/2018 8:48 AM WEB SERVICES PROFESSIONAL Called and left VM with results of the biopsy Will schedule patient to see me back in [address] scan SERVICES PROFESSIONAL documented in this encounter Plan of Treatment Not on filedocumented as of this encounter Results * CT ABDOMEN WO/W CONTRAST (08/11/2018 [...] Address City/State/Zipcode Phone Number [facility] RESULTS documented in this encounter Visit Diagnoses Diagnosis Malignant neoplasm of right kidney, except renal pelvis (HCC) - Primary Malignant neoplasm of kidney, except pelvis documented in this encounter
--- OUTSIDE RECORDS SUMMARY | 2018-09-05 12:51 | XMS REPORT | Encounter Summary ---
Author Author [facility] Organization [facility] Address Unknown Phone Unavailable Care Team Providers Care Overhead Cleaner Maintainer Name Role Phone No Pcp, Na PCP Unavailable Encounter Details Care Team Description Date Type Department Monty Bermudez SRNA 04/18/2018 Anesthesia [facility] Radiology [address] [address] Anesthesia Record Responsible Anesthesiologist Anesthesia Start Time Anesthesia Stop Time Procedure Name Yashira Maria MD 04/18/18 1412 04/18/[address] GUIDE FOR RF ABLATION PERC Date Time Event Comment 1347 1354 AN Equip Check 1400 Out of Pre Procedure 1410 In Room 1412 Anes Start 1412 An Start Data 1414 Quick Note Biomed called - vitals not transfering to chart 1421 An Induction The patient was reevaluated immediately before moderate or deep sedation use and before anesthesia induction. 1422 An Intubation 1430 Anesthesia Ready 1439 Antibiotic Given 1449 Proc Start 1544 An Extubation Follows commands 1545 an stop data 1548 Handoff to RN I completed my SBAR handoff to the receiving nurse. 1548 An Stop Meds Name Total fentaNYL PF (SUBLIMAZE) injection 100 mcg lidocaine (2%) 200 mg/10mL Injection 40 mg syringe propofol (DIPRIVAN) 200 mg/ 20 mL 200 mg injection (VIAL) succinylcholine (ANECTINE) injection 100 mg (VIAL) ondansetron (ZOFRAN) injection 4 mg dexamethasone (DECADRON) 4 mg/mL 4 mg injection phenylephrine (KURTIS-SYNEPHRINE) 0.1 mg/mL 300 mcg injection (SYRINGE) dextran 70/hypromellose (GENTEAL TEARS; 1 drop BION TEARS) ophthalmic solution ePHEDrine 50 mg/mL 50 mg in sodium 20 mg chloride PF 0.9% 5 mL IV syringe ampicillin/sulbactam (UNASYN) 3 g in 3 g sodium chloride 0.9% (NS) 100 mL IVPB (MB+) lactated ringers infusion (1000 mL bag) 900 mL * Name O2 N2O Inspired N2O Sevoflurane Inspired Sevoflurane * No blood administrations on file. Removal Type Details Placement 04/18/18 1544 by Monty Bermudez, ANSHU ETT 04/18/18; 1422; Ventilated by mask (1); 04/18/18 1422 by Aidan, Direct laryngoscopy, Stylet; ANSHU Millan Single-Lumen, Cuffed; 7mm; Mac; 3; Oral; 1-Full view of the glottis; 1 insertion attempt; Auscultation, ETCO2 Detector; 21 centimeters; atraumatic. lips cleared upon insertion of blade.; 04/18/18; 1544 documented in this encounter Social History Date Tobacco Use Types Packs/Day [...] history available. documented as of this encounter OR Notes * Anesthesia Postprocedure Evaluation - Yamil Mckeon DO - 04/18/2018 5:26 PM SADDLE TREE STITCHER Post-Anesthesia Evaluation Name: Tara Castillo : 1945 Age: 72 y.o. Sex: female Procedure Date: 04/18/2018 Procedure: CT guided RF ablation Surgeon: * No surgeons listed * Post-Anesthesia Vitals BP: 124/70 (04/18 1700) Pulse: 74 (04/18 1700) Respirations: 16 PER MINUTE (04/18 170) SpO2: 98 % (04/18 170) O2 Delivery: None (Room Air) (04/18 1699) SpO2 Pulse: 37 (04/18 1699) Post Anesthesia Evaluation Note Evaluation location: Pre/Post Patient participation: recovered; patient participated in evaluation Level of consciousness: alert Pain management: adequate Hydration: normovolemia Temperature: 36.0C - 38.4C Airway patency: adequate Perioperative Events Perioperative events: no Post-op nausea and vomiting: no PONV Postoperative Status Cardiovascular status: hemodynamically stable Respiratory status: spontaneous ventilation Follow-up needed: none Perioperative Events Perioperative Event: No Emergency Case Activation: No LE TREE STITCHER Associated attestation - Berto Kauffman DO - 04/18/2018 5:38 PM SADDLE TREE STITCHER Post-Anesthesia Sign Out: I reviewed the current evaluation and agree the indicated post anesthesia care w as provided. Evaluation by: Berto Kauffman DO Date: 04/18/2018 * Anesthesia Preprocedure Evaluation - Yashira Maria MD - 04/18/2018 1:46 PM SADDLE TREE STITCHER Anesthesia Pre-Procedure Evaluation Name: Tara Castillo : 1945 Age: 72 y.o. Sex: female Procedure Date: 04/18/2018 Procedure: * No procedures listed * Physical Assessment Vital Signs (last filed in past 24 hours): BP: 119/70 (04/18 1114) Temp: 36.6 C (97.9 F) (04/18 1056) Pulse: 66 (04/18 111) Respirations: 20 PER MINUTE (04/18 111) SpO2: 96 % (04/18 111) O2 Delivery: None (Room Air) (04/18 1055) Height: 179.1 cm (70.5") (04/18 1055) Weight: 75.8 kg (167 lb) (04/18 1055) Patient History No Known Allergies Current Medications Medication Directions acetaminophen (TYLENOL) 325 mg tablet Take 325 mg by mouth as Needed for Pain. aspirin/acetaminophen/caffeine(+) (EXCEDRIN EXTRA STRENGTH) 250/250/65 mg tab Ta ke 1 tablet by mouth as Needed. docusate (COLACE) 100 mg capsule Take 100 mg by mouth as Needed for Constipation . folic acid/multivit-min/lutein (CENTRUM SILVER PO) Take 1 tablet by mouth daily. Lactobac no.41-Bifidobact no.7 (PROBIOTIC-10) 70 mg (3 billion cell) cap Take 1 capsule by mouth daily. Review of Systems/Medical History Patient summary reviewed Pertinent labs reviewed PONV Screening: Female gender and Non-smoker Airway - negative Pulmonary - negative Cardiovascular Exercise tolerance: >4 METS Beta Ruddy therapy: No Beta blockers within 24 hours: n/a GI/Hepatic/Renal - negative Musculoskeletal - negative Endocrine/Other Malignancy (hx colon ca now in remission; renal mass found on CT done for bl ockage of small bowel? per patient.) Physical Exam Airway Findings Mallampati: II TM distance: >3 FB Neck ROM: full Mouth opening: good Airway patency: adequate Dental Findings: Lower dentures and upper dentures Cardiovascular Findings: Rhythm: regular Rate: normal Pulmonary Findings: Breath sounds clear to auscultation. Diagnostic Tests Hematology: Lab Results Component Value Date HGB 13.9 03/31/2018 HCT 40.3 03/31/2018 PLTCT 172 03/31/2018 WBC 4.2 03/31/2018 MCV 90.9 03/31/2018 MCH 31.4 03/31/2018 MCHC 34.5 03/31/2018 MPV 7.3 03/31/2018 RDW 12.5 03/31/2018 General Chemistry: Lab Results Component Value Date NA 138 03/31/2018 K 4.4 03/31/2018 CL 107 03/31/2018 CO2 27 03/31/2018 GAP 4 03/31/2018 BUN 11 03/31/2018 CR 0.69 03/31/2018 GLU 102 03/31/2018 CA 9.9 03/31/2018 ALBUMIN 4.0 03/31/2018 TOTBILI 0.7 03/31/2018 Coagulation: Lab Results Component Value Date INR 1.0 03/31/2018 Anesthesia Plan ASA score: 3 NPO status: acceptable Informed Consent Anesthetic plan and risks discussed with patient. Use of blood products discussed with patient Blood Consent: consented Plan discussed with: DIRECTOR HARDWARE. Comments: (I have seen the patient and agree with the history, physical and anes thesia plan as above. Patient agrees to proceed with planned anesthetic after ri sks/benefits/alternatives explained. -Yashira Maria M.D. ) LE TREE STITCHER documented in this encounter Plan of Treatment Not on filedocumented as of this encounter Visit Diagnoses Not on filedocumented in this encounter Administered Medications Action Date Dose Rate Site Medication Order MAR Action 04/18/2018 2:39 PM SADDLE TREE STITCHER 3 g ampicillin/sulbactam (UNASYN) 3 g in Given - New sodium chloride 0.9% (NS) 100 mL IVPB Bag (MB+) 100 mL, Administer over 60 Minutes, INTRA-PROCEDURE MED(CONT), Starting Tue04/18/18 at 1439, Until Tue04/18/18 at 1551, Anesthesia Intra-op 04/18/2018 2:27 PM SADDLE TREE STITCHER 4 mg dexamethasone (DECADRON) injection Given Intravenous, INTRA-PROCEDURE MED, Starting Tue04/18/18 at 1427, Until Tue04/18/18 at 1551, Anesthesia Intra-op 04/18/2018 2:22 PM SADDLE TREE STITCHER 1 drop dextran 70/hypromellose (GENTEAL TEARS; Given BION TEARS) ophthalmic solution INTRA-PROCEDURE MED, Starting Tue04/18/18 at 1422, Until Tue04/18/18 at 1551, Anesthesia Intra-op 04/18/2018 2:43 PM SADDLE TREE STITCHER 10 mg ePHEDrine 50 mg/mL 50 mg in sodium Bolus chloride PF 0.9% 5 mL IV syringe 5 mL, INTRA-PROCEDURE MED(CONT), Starting Tue04/18/18 at 1440, Until Tue04/18/18 at 1551, Anesthesia Intra-op 10 mg Given - New Bag 04/18/2018 2:40 PM SADDLE TREE STITCHER 04/18/2018 2:29 PM SADDLE TREE STITCHER 50 mcg fentaNYL citrate PF (SUBLIMAZE) Given injection INTRA-PROCEDURE MED, Starting Tue04/18/18 at 1425, Until Tue04/18/18 at 1551, Anesthesia Intra-op 50 mcg Given 04/18/2018 2:25 PM SADDLE TREE STITCHER 04/18/2018 2:12 PM SADDLE TREE STITCHER lactated ringers infusion Given - New INTRA-PROCEDURE MED(CONT), Starting Tue04/18/18 at 1412, Until Tue04/18/18 at 1551, Anesthesia Intra-op 04/18/2018 2:21 PM SADDLE TREE STITCHER 40 mg lidocaine (PF) injection Given INTRA-PROCEDURE MED, Starting Tue04/18/18 at 1421, Until Tue04/18/18 at 1551, Anesthesia Intra-op 04/18/2018 3:07 PM SADDLE TREE STITCHER 4 mg ondansetron (ZOFRAN) injection Given Intravenous, INTRA-PROCEDURE MED, Starting Tue04/18/18 at 1507, Until Tue04/18/18 at 1551, Anesthesia Intra-op 04/18/2018 2:43 PM SADDLE TREE STITCHER 100 mcg phenylephrine in NS injection syringe Given Intravenous, INTRA-PROCEDURE MED, Starting Tue04/18/18 at 1439, Until Tue04/18/18 at 1551, Anesthesia Intra-op 100 mcg Given 04/18/2018 2:42 PM SADDLE TREE STITCHER 100 mcg Given 04/18/2018 2:39 PM SADDLE TREE STITCHER 04/18/2018 3:06 PM SADDLE TREE STITCHER 40 mg propofol (DIPRIVAN) injection Given INTRA-PROCEDURE MED, Starting Tue04/18/18 at 1421, Until Tue04/18/18 at 1551, Anesthesia Intra-op 30 mg Given 04/18/2018 2:25 PM SADDLE TREE STITCHER 130 mg Given 04/18/2018 2:21 PM SADDLE TREE STITCHER 04/18/2018 2:21 PM SADDLE TREE STITCHER 100 mg succinylcholine (ANECTINE) injection Given Intravenous, INTRA-PROCEDURE MED, Starting Tue04/18/18 at 1421, Until Tue04/18/18 at 1551, Anesthesia Intra-op documented in this encounter
--- OUTSIDE RECORDS SUMMARY | 2018-09-05 12:51 | XMS REPORT | Encounter Summary ---
Author Author [facility] Organization [facility] Address Unknown Phone Unavailable Care Team Providers Care Transitional Studies Instructor Name Role Phone No Pcp, Na PCP Unavailable Reason for Visit * Reason Comments Follow Up Encounter Details Care Team Description Date Type Department Constanza Hinson RN Follow Up 04/20/[address] [facility] Radiology [address] [address] Social History Date Tobacco Use Types Packs/Day [...] encounter Miscellaneous Notes * Telephone Encounter - Constanza Hinson RN - 04/20/2018 10:32 AM MANAGER OF CUSTOMER BILLING IR Progress Note Call placed to patient to follow up on post ablation pain and nausea. She report s that she is feeling much better and has had a bowel movement, which helped wit h her stomach discomfort. Patient also stated that she received the [facility] paperwo rk that was sent to her. Advised she contact this RN with any further questions or concerns. She verbalized understanding and has no further questions at this t dolores. Constanza Hinson RN BSN GER OF CUSTOMER BILLING documented in this encounter Plan of Treatment Not on filedocumented as of this encounter Visit Diagnoses Not on filedocumented in this encounter
--- OUTSIDE RECORDS SUMMARY | 2018-09-05 12:51 | XMS REPORT | Encounter Summary ---
Author Author [facility] Organization [facility] Address Unknown Phone Unavailable Care Team Providers Care Pattern Molder Name Role Phone No Pcp, Na PCP Unavailable Reason for Visit * Radiology Services (Routine) Referred By Contact Referred To Contact Status Reason Specialty Diagnoses / Procedures Wendy Wagner MD [address] [place] [address] Bh2 [place] [address] [address] No Auth Needed Radiology Diagnoses Malignant neoplasm of right kidney (HCC) P rocedures CT GUIDE FOR RF ABLATION PERC IR ABLATION CHG CT GUIDANCE &MONITORING VISC TISS ABLATION [place] ABLTJ 1/> RENAL TUMOR PRQ UNI RADIOFREQUENCY Encounter Details Care Team Description Date Type Department Wendy Wagner MD [address] [place] [address] [phone] Екатерина Ricks, Alex Rivers MD [address] [address] [phone] Malignant neoplasm of right kidney (HCC) 04/18/2018 Hospital [facility] Radiology [address] [address] Social History Date Tobacco Use Types Packs/Day [...] history available. documented as of this encounter Last Filed Vital Signs Reading Time Taken Comments Vital Sign 138/69 04/18/2018 6:30 PM NATURAL GAS FIELD PROCESSING SUPERVISOR Blood Pressure 79 04/18/2018 6:30 PM NATURAL GAS FIELD PROCESSING SUPERVISOR Pulse 36.8 C (98.2 F) 04/18/2018 4:05 PM NATURAL GAS FIELD PROCESSING SUPERVISOR Temperature - - Respiratory Rate 93% 04/18/2018 6:30 PM NATURAL GAS FIELD PROCESSING SUPERVISOR Oxygen Saturation - - Inhaled Oxygen Concentration 75.8 kg (167 lb) 04/18/2018 10:56 AM NATURAL GAS FIELD PROCESSING SUPERVISOR Weight 179.1 cm (5' 10.5") 04/18/2018 10:56 AM NATURAL GAS FIELD PROCESSING SUPERVISOR Height 23.62 04/18/2018 10:56 AM NATURAL GAS FIELD PROCESSING SUPERVISOR Body Mass Index documented in this encounter Discharge Instructions * Patient Instructions* Balta Tejada, TAMEKA - 04/18/2018 11:12 AM NATURAL GAS FIELD PROCESSING SUPERVISOR INTERVENTIONAL RADIOLOGY DISCHARGE INSTRUCTIONS MICROWAVE ABLATION Microwave Ablation is aprocedure that heats and destroys cancer cells. Imagi ng techniques such as ultrasound, CT, or MRI are used to help guide a needle bree ctrode intoa tumor. Microwave currents are then passed through the electrode creating heat that destroys the abnormal cells. At the same time, heat from t he ablation energy closes small blood vessels and lessens the risk of bleeding. The tumor cells are gradually replaced by scar tissue that will shrink ove r time. Microwave ablation may cause shoulder pain or flu like symptoms usuall y lasting no more than3-5 days. POST-PROCEDURE ACTIVITY: A responsible adult must drive you home after the procedure. You should not drive or operate heavy machinery or do anything that requires concentration for at least 24 hours after receiving sedation or anesthesia. It is recommended that a responsible adult be with you until morning. Avoid lifting more than 5 lbs. for 1 week and avoid exercises that use your a bdominal muscles. Also avoid pushing, pulling or straining. POST-PROCEDURE SITE CARE: You will have a small bandage over the site. Keep this dry. You may remov e it in 24 hours. You may shower in 24 hours, after removing the bandage. Do not submerge the site underwater for 1 week (no swimming/hot tub, etc.) Be sure your hands are clean when touching near the site. Do not use ointments, creams or powders on the puncture site. DIET/MEDICATIONS: You may resume your previous diet 1-2 hours after the procedure. Avoid any foods or beverages containing alcohol for at least 24 hours after t he procedure. Please see the Medication Reconciliation sheet for instructions on resuming y our home medications. CALL THE DOCTOR IF: Bright red blood has soaked the bandage. You have severe pain not relieved by medication. Some soreness or tendernes s at the site is to be expected for several days. You have persistent nausea or vomiting. You have signs of infection such as: Chills, fever greater than 101F, body ac hes, redness, swelling or warmth at the puncture site or pus draining from the s ite. You have new or worse belly swelling or bloating. You observe a dark color to your urine You develop yellow coloring to skin and eyes (jaundice). You or your caregiver should call 911 for any severe symptoms such as excessiv e bleeding, severe dizziness, trouble breathing or loss of consciousness. For any of the above symptoms or for problems or concerns related to the procedu re, call [phone] for Tuesday-Tuesday 7-5. After-hours and weekends, [facility] call [phone] and ask for the Interventional Industrial Ecology Technician on-mayte john Interventional Radiology-Discharge Instructions Percutaneous Renal Biopsy A percutaneous renal biopsy is a procedure in which a special needle is used to remove a small piece of tissue from your kidney to examine for signs of damage a nd disease. The radiologist will determine whether the procedure is to be do ne using ultrasound or CT guidance. The procedure usually lasts less than one hour with a 4-6 hour recovery period before you are allowed to return home. POST-PROCEDURE ACTIVITY: A responsible adult must drive you home. If you receive sedation, you chano uld not drive or operate heavy machinery or do anything that requires concentrat ion for at least 24 hours after receiving sedation. It is recommended that a responsible adult be with you until morning. Avoid lifting more than 5 lbs. for 1 week and avoid exercises that use your a bdominal muscles. Also avoid pushing, pulling or straining. POST-PROCEDURE SITE CARE: You will have a small bandage over the site. Keep this dry. You may remov e it in 24 hours. You may shower in 24 hours, after removing the bandage. Do not submerge the site underwater for 1 week (no swimming/hot tub, etc.) Be sure your hands are clean when touching near the site. Do not use ointments, creams or powders on the puncture site. DIET/MEDICATIONS: You may resume your previous diet 1-2 hours after the procedure. If you receive sedation or narcotic pain medications, avoid any foods or beve rages containing alcohol for at least 24 hours after the procedure. Please see the Medication Reconciliation sheet for instructions on resuming y our home medications. WHEN TO CALL THE DOCTOR: Blood in your urine Exhaustion or extreme weakness Dizziness or lightheadedness Sudden or increased shortness of breath Sudden chest pain Dbfzenx390.4F orhigher, orchills Increasing redness, tenderness, or swelling at the biopsy site Opening of or drainage or bleedingfrom the biopsy site Increasing pain, with or without activity You have severe pain not relieved by medication. Some soreness or tendernes s at the site is to be expected for several days. You have persistent nausea or vomiting. You or your caregiver should call 911 for any severe symptoms such as excessive bleeding, severe dizziness, trouble breathing or loss of consciousness. For any of the above symptoms or for problems or concerns related to the procedu re, call [phone] for Tuesday-Tuesday 7-5. After-hours and weekends, ple ase call [phone] and ask for the Interventional Industrial Ecology Technician natanael lopez RAL GAS FIELD PROCESSING SUPERVISOR documented in this encounter Medications at Time of Discharge Start Date End Date Medication Sig Dispensed Refills acetaminophen (TYLENOL) Take 325 mg 0 325 mg tablet by mouth as Needed for Pain. aspirin/acetaminophen/caf Take 1 tablet 0 feine(+) (EXCEDRIN EXTRA by mouth as STRENGTH) 250/250/65 mg Needed. tab docusate (COLACE) 100 mg Take 100 mg 0 capsule by mouth as Needed for Constipation. folic Take 1 tablet 0 acid/multivit-min/lutein by mouth (CENTRUM SILVER PO) daily. Lactobac no.41-Bifidobact Take 1 0 no.7 (PROBIOTIC-10) 70 mg capsule by (3 billion cell) cap mouth daily. 04/18/2018 08/11/2018 ondansetron (ZOFRAN) 4 mg Take one 20 tablet 0 tabletIndications: tablet by Malignant neoplasm of mouth every 6 right kidney (HCC) hours as needed for Nausea or Vomiting. 04/18/2018 08/11/2018 oxyCODONE (ROXICODONE, Take one 30 tablet 0 OXY-IR) 5 mg tablet by tabletIndications: mouth every 4 Malignant neoplasm of hours as right kidney (HCC) needed for Pain documented as of this encounter Progress Notes * Balta Tejada RN - 04/18/2018 6:39 PM NATURAL GAS FIELD PROCESSING SUPERVISOR Patient port locked with Normal Saline per patient's device card. Port deaccess ed and dressing placed. Patient tolerated well. Patient stable and [facility] RAL GAS FIELD PROCESSING SUPERVISOR * Balta Tejada RN - 04/18/2018 6:21 PM NATURAL GAS FIELD PROCESSING SUPERVISOR Patient sitting up in cart, expressing feeling much better. Will assess again at 1830 and plan to discharge at that point. RAL GAS FIELD PROCESSING SUPERVISOR * Lobito Golden RN - 04/18/2018 5:13 PM NATURAL GAS FIELD PROCESSING SUPERVISOR Dr. Keith at bedside talking with patient and family. RAL GAS FIELD PROCESSING SUPERVISOR * Екатерина Ricks RN - 04/18/2018 2:18 PM NATURAL GAS FIELD PROCESSING SUPERVISOR Anesthesia responsible for care during procedure. Please see anesthesia flowshe et for details. RAL GAS FIELD PROCESSING SUPERVISOR * Yamil Paula RN - 04/18/2018 10:57 AM NATURAL GAS FIELD PROCESSING SUPERVISOR This RN accessed this pt's right chest port using sterile technique. Port flush ed with sterile saline and blood return noted. Sterile dressing placed on acces sed port. Pt's port is a groshong port and is NOT to be packed with heparin. I t is to be flushed with saline prior to de-access. RAL GAS FIELD PROCESSING SUPERVISOR documented in this encounter H&P Notes * Darrion Boles APRN-NP - 04/18/2018 10:46 AM NATURAL GAS FIELD PROCESSING SUPERVISOR Pre Procedure History and Physical/Sedation Plan Procedure Date: 04/18/2018 Planned Procedure(s): Right renal mass bx and ablation Indication for exam: Solid RIGHT renal mass 2.9 cm Chief Complaint: Right renal mass Previous Anesthetic/Sedation History: Per anesthesia Allergies: Patient has no known allergies. Medications: Scheduled Meds:Continuous Infusions: PRN and Respiratory Meds: Vital Signs: Last Filed Vital Signs: 24 Hour Range Sedation/Medication Plan: Per anesthesia Personal history of sedation complications: Denies adverse event. Family history of sedation complications: Denies adverse event. Medications for Reversal: Per anesthesia Discussion/Reviews: Physician has discussed risks and alternatives of this type of sedation and above planned procedures with patient NPO Status: Acceptable Airway: Per anesthesia Head and Neck: Per anesthesia Mouth: Per anesthesia Anesthesia Classification: Per anesthesia Status: Not Lab/Radiology/Other Diagnostic Tests Labs: Relevant labs reviewed I have examined the patient, and there are no significant changes in their condi tion, from the previous H&P performed on 03/31/18. RODRIGO MimsPLANNING FEEDER Pager [phone] RAL GAS FIELD PROCESSING SUPERVISOR documented in this encounter Miscellaneous Notes * Procedures (Immed Post or Bedside) - uGille Rand MD - 04/18/2018 3:29 PM NATURAL GAS FIELD PROCESSING SUPERVISOR Immediate Post Procedure Note Date: 04/18/2018 Attending Physician: Dr. Keith Performing Provider: Guille Rand MD Consent: Consent obtained from patient. Time out performed: Consent obtained, correct patient verified, correct procedur e verified, correct site verified, patient marked as necessary. Pre/Post Procedure Diagnosis: Right renal mass Indications: Right RCC Anesthesia: General Procedure(s): CT guided biopsy and renal mass ablation Findings: 3x18g core biopsy right renal mass. Next, the mass was microwave abl ated @75W for 7 minutes resulting in a spherical treatment of approx 3.1cm Estimated Blood Loss: None/Negligible Specimen(s) Removed/Disposition: Yes, sent to pathology Complications: None Patient Tolerated Procedure: Well Post-Procedure Condition: stable Guille Rand MD Pager [phone] RAL GAS FIELD PROCESSING SUPERVISOR documented in this encounter Plan of Treatment Not on filedocumented as of this encounter Procedures Comments Procedure Name Priority Date/Time Associated Diagnosis SURGICAL PATHOLOGY 04/18/2018 4:31 PM NATURAL GAS FIELD PROCESSING SUPERVISOR CT GUIDE FOR RF ABLATION Routine 04/18/2018 Malignant neoplasm of PERC 3:30 PM NATURAL GAS FIELD PROCESSING SUPERVISOR right kidney (HCC) CT GUIDE NEEDLE PLACEMENT Routine 04/18/2018 Malignant neoplasm of 3:30 PM NATURAL GAS FIELD PROCESSING SUPERVISOR right kidney (HCC) documented in this encounter Results * SURGICAL PATHOLOGY (04/18/2018 4:31 PM NATURAL GAS FIELD PROCESSING SUPERVISOR) PATHOLOGY [facility] [email or web address] Department of Pathology and Laboratory Medicine [address] [place] [address] Surgical Pathology Office:[phone] :[phone] SURGICAL PATHOLOGY REPORT NAME: EDWIN TAMAYO SURG PATH #: [id number] MR #: [id number] SPECIMEN CLASS: SR BILLING #: [id number] ALT ID #:LOCATION: DATE OF PROCEDURE: 04/18/2018 AGE:72 SEX: F DATE RECEIVED: 04/18/2018 : 1945TIME RECEIVED:16:31 PHYSICIAN: WENDY WAGNER MD DATE OF REPORT: 04/20/2018 COPY TO:DATE OF PRINTIN04/20/2018 ############################## ############################## ############ Final Diagnosis: A. Kidney, right renal mass, needle biopsy: Papillary renal cell carcinoma, WHO/ISUP grade 2. See checklist. Comment: KIDNEY: Biopsy CAP Version: Kidney 4.0.1.0 Procedure Incisional biopsy, needle Specimen Laterality Right Histologic Type Papillary renal cell carcinoma Sarcomatoid Features Not identified Histologic Grade (WHO/ISUP Grade) G2: Nucleoli conspicuous and eosinophilic at 400x magnification, visible but not prominent at 100x magnification Additional Pathologic Findings None identified The pathologic stage assigned here should be regarded as provisional, as it reflects only current pathologic data and does not incorporate full knowledge of the patient's clinical status and/or prior pathology. Immunostains on block A1 show the tumor cells are diffusely and strongly positive for CK7 and focally positive for CAIX, supporting the diagnosis. Pursuant to the Civil Rights Representative Program at the [facility] Pathology Department, selected slides from this case have been concurrently reviewed by the following pathologist: Dr. Elvia Vital, who agrees with the final diagnosis. The biopsy/tissue block contains sufficient tumor cells for further testing (block A1). Attestation: By this signature, I attest that I have personally formulated the final interpretation expressed in this report and that the above diagnosis is based upon my examination of the slides and/or other material indicated in this report. +++ +++ kd/04/19/2018 ############################## ############################## ############ Material Received: A: right renal mass bx History: 72-year-old female with a history of right renal mass biopsy Gross Description: A. Received in formalin labeled "right renal mass biopsy" is a 1.8 cm in length by 0.1 cm in diameter cores of liu-red tissue. The specimen is entirely submitted in cassettes A1-A2.(cg) cg/04/18/2018 If immunohistochemical stains and/or in situ hybridization are cited in this report, the performance characteristics were determined by the Department of Pathology and Laboratory Medicine of the [facility] ([employer] [facility]) in compliance with CLIA'88 regulations.Some of these tests rely on the use of "analyte specific reagents" and are subject to specific labeling requirements by the FDA. Known positive and negative control tissues demonstrate appropriate staining.Results should be interpreted with caution given the likelihood of false negativity on decalcified specimens.This testing was developed by the Department of Pathology and Laboratory Medicine of the [facility].It has not been cleared or approved by the FDA.The FDA has determined that such clearance or approval is not necessary. Specimen Performing Organization Address City/State/Zipcode Phone Number [facility] [address] [place] [address] * CT GUIDE NEEDLE PLACEMENT (04/18/2018 3:30 PM NATURAL GAS FIELD PROCESSING SUPERVISOR) Specimen Impressions Performed At 1.Successful 18-gauge core biopsy of right renal mass. [facility] 2.Successful CT-guided Microwave Ablation of right renal tumor. PLAN: Follow up cross-sectional imaging will be performed at 1 month, 3 months, 6 months, and 1 year for evaluation of treatment response and local control. I, Paul Keith M.D, the attending radiologist, was present for the critical and lopez portions of the procedure with a midlevel, resident, and/or fellow participating.Overlapping portions were non lopez and I was immediately available.I interpret the critical and lopez portion of this procedure to have been CT guided biopsy and microwave ablation. @TT Approved by Guille Rand M.D. on 04/18/2018 4:01 PM By my electronic signature, I attest that I have personally reviewed the images for this examination and formulated the interpretations and opinions expressed in this report Finalized by Paul Keith M.D. on 04/19/2018 1:15 PM. Dictated by Guille Rand M.D. on 04/18/2018 3:58 PM. Narrative Performed At CT-GUIDED RIGHT RENAL MASS BIOPSY AND SUBSEQUENT MICROWAVE ABLATION [facility] Clinical History: Right renal mass, renal cell carcinoma Technique: Informed consent was obtained after the alternatives, benefits, and risks of the procedure were explained with emphasis on the specific risks of infection, bleeding, and injury to the kidney or surrounding structures. With the patient in the prone position, under general anesthesia, the right flank was scrubbed and draped in the usual aseptic manner. 2% lidocaine was used for local anesthesia. A 10 cm 17/18 gauge Temno introducer needle was advanced into the renal mass and positioning confirmed by CT. 3 separate 18-gauge core biopsies were obtained and placed in formalin. A small amount of Gelfoam slurry was then administered to the biopsy tract and the introducer needle removed. Next, an Emprint 17 Gauge microwave ablation antenna was advanced to the central aspect of the right lower pole renal mass. Microwave ablation was performed at 75 riley for 7 minutes resulting in an approximate spherical treatment region of 3.1 cm. However, the mid-burn scan demonstrated that the needle had moved into the. Space. Therefore, the burn was positive and the needle repositioning of the central aspect of the tumor. Repeat ablation at 75 W for 7 minutes was performed. The tract was then sequential ablated as the probe was being removed. Follow-up CT exam revealed no perihepatic hematoma or pneumothorax. The patient tolerated this procedure well and was transferred to the recovery room in stable condition. Procedure Note Interface, Radiant Results - 04/19/2018 1:18 PM NATURAL GAS FIELD PROCESSING SUPERVISOR CT-GUIDED RIGHT RENAL MASS BIOPSY AND SUBSEQUENT MICROWAVE ABLATION Clinical History: Right renal mass, renal cell carcinoma Technique: Informed consent was obtained after the alternatives, benefits, and risks of the procedure were explained with emphasis on the specific risks of infection, bleeding, and injury to the kidney or surrounding structures. With the patient in the prone position, under general anesthesia, the right flank was scrubbed and draped in the usual aseptic manner. 2% lidocaine was used for local anesthesia. A 10 cm 17/18 gauge Temno introducer needle was advanced into the renal mass and positioning confirmed by CT. 3 separate 18-gauge core biopsies were obtained and placed in formalin. A small amount of Gelfoam slurry was then administered to the biopsy tract and the introducer needle removed. Next, an Emprint 17 Gauge microwave ablation antenna was advanced to the central aspect of the right lower pole renal mass. Microwave ablation was performed at 75 riley for 7 minutes resulting in an approximate spherical treatment region of 3.1 cm. However, the mid-burn scan demonstrated that the needle had moved into the. Space. Therefore, the burn was positive and the needle repositioning of the central aspect of the tumor. Repeat ablation at 75 W for 7 minutes was performed. The tract was then sequential ablated as the probe was being removed. Follow-up CT exam revealed no perihepatic hematoma or pneumothorax. The patient tolerated this procedure well and was transferred to the recovery room in stable condition. IMPRESSION 1. Successful 18-gauge core biopsy of right renal mass. 2. Successful CT-guided Microwave Ablation of right renal tumor. PLAN: Follow up cross-sectional imaging will be performed at 1 month, 3 months, 6 months, and 1 year for evaluation of treatment response and local control. Paul Pollock M.D, the attending radiologist, was present for the critical and lopez portions of the procedure with a midlevel, resident, and/or fellow participating. Overlapping portions were non lopez and I was immediately available. I interpret the critical and lopez portion of this procedure to have been CT guided biopsy and microwave ablation. @TT Approved by Guille Rand M.D. on 04/18/2018 4:01 PM By my electronic signature, I attest that I have personally reviewed the images for this examination and formulated the interpretations and opinions expressed in this report Finalized by Paul Keith M.D. on 04/19/2018 1:15 PM. Dictated by Guille Rand M.D. on 04/18/2018 3:58 PM. Performing Organization Address City/State/Zipcode Phone Number [facility] * CT GUIDE FOR RF ABLATION PERC (04/18/2018 3:30 PM NATURAL GAS FIELD PROCESSING SUPERVISOR) Specimen Impressions Performed At 1.Successful 18-gauge core biopsy of right renal mass. [facility] RESULTS 2.Successful CT-guided Microwave Ablation of right renal tumor. PLAN: Follow up cross-sectional imaging will be performed at 1 month, 3 months, 6 months, and 1 year for evaluation of treatment response and local control. Paul Pollock M.D, the attending radiologist, was present for the critical and lopez portions of the procedure with a midlevel, resident, and/or fellow participating.Overlapping portions were non lopez and I was immediately available.I interpret the critical and lopez portion of this procedure to have been CT guided biopsy and microwave ablation. @TT Approved by Guille Rand M.D. on 04/18/2018 4:01 PM By my electronic signature, I attest that I have personally reviewed the images for this examination and formulated the interpretations and opinions expressed in this report Finalized by Paul Keith M.D. on 04/19/2018 1:15 PM. Dictated by Guille Rand M.D. on 04/18/2018 3:58 PM. Narrative Performed At CT-GUIDED RIGHT RENAL MASS BIOPSY AND SUBSEQUENT MICROWAVE ABLATION [facility] Clinical History: Right renal mass, renal cell carcinoma Technique: Informed consent was obtained after the alternatives, benefits, and risks of the procedure were explained with emphasis on the specific risks of infection, bleeding, and injury to the kidney or surrounding structures. With the patient in the prone position, under general anesthesia, the right flank was scrubbed and draped in the usual aseptic manner. 2% lidocaine was used for local anesthesia. A 10 cm 17/18 gauge Temno introducer needle was advanced into the renal mass and positioning confirmed by CT. 3 separate 18-gauge core biopsies were obtained and placed in formalin. A small amount of Gelfoam slurry was then administered to the biopsy tract and the introducer needle removed. Next, an Cracklerint 17 Gauge microwave ablation antenna was advanced to the central aspect of the right lower pole renal mass. Microwave ablation was performed at 75 riley for 7 minutes resulting in an approximate spherical treatment region of 3.1 cm. However, the mid-burn scan demonstrated that the needle had moved into the. Space. Therefore, the burn was positive and the needle repositioning of the central aspect of the tumor. Repeat ablation at 75 W for 7 minutes was performed. The tract was then sequential ablated as the probe was being removed. Follow-up CT exam revealed no perihepatic hematoma or pneumothorax. The patient tolerated this procedure well and was transferred to the recovery room in stable condition. Procedure Note Interface, Radiant Results - 04/19/2018 1:18 PM NATURAL GAS FIELD PROCESSING SUPERVISOR CT-GUIDED RIGHT RENAL MASS BIOPSY AND SUBSEQUENT MICROWAVE ABLATION Clinical History: Right renal mass, renal cell carcinoma Technique: Informed consent was obtained after the alternatives, benefits, and risks of the procedure were explained with emphasis on the specific risks of infection, bleeding, and injury to the kidney or surrounding structures. With the patient in the prone position, under general anesthesia, the right flank was scrubbed and draped in the usual aseptic manner. 2% lidocaine was used for local anesthesia. A 10 cm 17/18 gauge Temno introducer needle was advanced into the renal mass and positioning confirmed by CT. 3 separate 18-gauge core biopsies were obtained and placed in formalin. A small amount of Gelfoam slurry was then administered to the biopsy tract and the introducer needle removed. Next, an Emprint 17 Gauge microwave ablation antenna was advanced to the central aspect of the right lower pole renal mass. Microwave ablation was performed at 75 riley for 7 minutes resulting in an approximate spherical treatment region of 3.1 cm. However, the mid-burn scan demonstrated that the needle had moved into the. Space. Therefore, the burn was positive and the needle repositioning of the central aspect of the tumor. Repeat ablation at 75 W for 7 minutes was performed. The tract was then sequential ablated as the probe was being removed. Follow-up CT exam revealed no perihepatic hematoma or pneumothorax. The patient tolerated this procedure well and was transferred to the recovery room in stable condition. IMPRESSION 1. Successful 18-gauge core biopsy of right renal mass. 2. Successful CT-guided Microwave Ablation of right renal tumor. PLAN: Follow up cross-sectional imaging will be performed at 1 month, 3 months, 6 months, and 1 year for evaluation of treatment response and local control. I, Paul Keith M.D, the attending radiologist, was present for the critical and lopez portions of the procedure with a midlevel, resident, and/or fellow participating. Overlapping portions were non lopez and I was immediately available. I interpret the critical and lopez portion of this procedure to have been CT guided biopsy and microwave ablation. @TT Approved by Guille Rand M.D. on 04/18/2018 4:01 PM By my electronic signature, I attest that I have personally reviewed the images for this examination and formulated the interpretations and opinions expressed in this report Finalized by Paul Keith M.D. on 04/19/2018 1:15 PM. Dictated by Guille Rand M.D. on 04/18/2018 3:58 PM. Performing Organization Address City/State/Zipcode Phone Number [facility] RESULTS documented in this encounter Visit Diagnoses Diagnosis Malignant neoplasm of right kidney (HCC) documented in this encounter Administered Medications Action Date Dose Rate Site Medication Order MAR Action 04/18/2018 4:34 PM NATURAL GAS FIELD PROCESSING SUPERVISOR 50 mcg fentaNYL citrate PF (SUBLIMAZE) Given injection 50 mcg 50 mcg, Intravenous, EVERY 5 MIN PRN, Starting 04/18/18 at 1555, Until 04/18/18 at 2105, Pain Injectable, For Pain Score 4-6, Maximum total dose 200 mcg Hold if RR < 10, PACU (only) 50 mcg Given 04/18/2018 4:04 PM NATURAL GAS FIELD PROCESSING SUPERVISOR 04/18/2018 5:30 PM NATURAL GAS FIELD PROCESSING SUPERVISOR 5 mg oxyCODONE (ROXICODONE, OXY-IR) tablet Given 5-10 mg 5-10 mg, Oral, ONCE PRN, 1 dose, Starting Tue04/18/18 at 1555, Until Tue04/18/18 at 1730, For VAS score < 4, PACU (only) documented in this encounter
--- OUTSIDE RECORDS SUMMARY | 2018-09-05 12:51 | XMS REPORT | Encounter Summary ---
Author Author [facility] Organization [facility] Address Unknown Phone Unavailable Care Team Providers Care Packaging Mechanic Name Role Phone No Pcp, Na PCP Unavailable Reason for Referral * Radiology Services (Routine) Referred By Contact Referred To Contact Status Reason Specialty Diagnoses / [place] [address] [place] [address] [place] [address] No Auth Needed Radiology Diagnoses Malignant neoplasm of right kidney, except renal pelvis (HCC) P rocedures CT ABDOMEN WO/W CONTRAST * Radiology Services (Routine) Referred By Contact Referred To Contact Status Reason Specialty Diagnoses / Procedures Dejon Wagner MD [address] [place] [address] [address] No Auth Needed Radiology Diagnoses Malignant neoplasm of right kidney, except renal pelvis (HCC) P rocedures CT ABDOMEN WO/W CONTRAST Reason for Visit * Radiology Services (Routine) Referred By Contact Referred To Contact Status Reason Specialty Diagnoses / Procedures Dejon Wagner MD [address] [place] [address] [place] [address] [address] No Auth Needed Radiology Diagnoses Malignant neoplasm of right kidney, except renal pelvis (HCC) P rocedures CT ABDOMEN WO/W CONTRAST Encounter Details Care Team Description Date Type Department Dejon Wagner MD [address] [facility] [place], [place] [id number] 08/11/2018 [facility] [address] [address] Social History Date Tobacco Use Types Packs/Day [...] history available. documented as of this encounter Medications at Time of Discharge [...] by (3 billion cell) cap mouth daily. documented as of this encounter Plan of Treatment Not on filedocumented as of this encounter Procedures Comments Procedure Name Priority Date/Time Associated Diagnosis CT ABDOMEN WO/W CONTRAST Routine 08/11/2018 Malignant neoplasm of 11:34 AM CDT right kidney, except renal pelvis (HCC) POC CREATININE, RAD 08/11/2018 11:21 AM CDT documented in this encounter Results * CT ABDOMEN WO/W [...] PM. Performing Organization Address City/State/Zipcode Phone Number RAD RESULTS * POC CREATININE, RAD (08/11/2018 11:21 AM CDT) Creatinine, POC 0.7 0.4 - 1.00 MG/DL [facility] Specimen Performing Organization Address City/State[facility] Phone Number [facility] [address] [place] [address] documented in this encounter Visit Diagnoses Diagnosis Malignant neoplasm of right kidney, except renal pelvis (HCC) Malignant neoplasm of kidney, except pelvis documented in this encounter Administered Medications Action Date Dose Rate Site Medication Order MAR Action 08/11/2018 11:45 AM CDT 80 mL iohexol (OMNIPAQUE-350) 350 mg/mL Given injection 80 mL 80 mL, Intravenous, ONCE, 1 dose, Tue08/11/18 at 1145, NOTE: This is a HIGH ALERT Medication., 08/11/2018 11:45 AM CDT 50 mL sodium chloride PF 0.9% injection 50 mL Given 50 mL, Intravenous, ONCE, 1 dose, Tue08/11/18 at 1145, DO NOT SEND this medication unless it is requested. This med is usually available in floor stock., Intra-procedure (IR) documented in this encounter
--- OUTSIDE RECORDS SUMMARY | 2018-09-05 12:51 | XMS REPORT | Encounter Summary ---
Author Author [facility] Organization [facility] Address Unknown Phone Unavailable Care Team Providers Care Logistics Loss Prevention Manager Name Role Phone No Pcp, Na PCP Unavailable Reason for Visit * Reason Comments Post Procedure Encounter Details Care Team Description Date Type Department Constanza Hinson RN Post Procedure 04/19/2018 Telephone [facility] Radiology [address] [address] Social History Date Tobacco Use Types Packs/Day [...] Telephone Encounter - Constanza Hinson RN - 04/19/2018 2:59 PM PUBLIC HEALTH ASSISTANT IR Progress Note Call made to patient to discuss how she is feeling. She stated that she was expe riencing some stomach tightness, although this is improving. She also stated sandeep t she is having some dizziness but this is improving and she is trying to get up and move around more. Discussed with Dr. Keith, patient should monitor symptoms closely and go to the ED if symptoms don't improve or worsen. Patient should a lso take a stool softener due to pain medication. Advised patient of recommendat ions and she verbalized understanding. [facility] paperwork completed and emailed to patient per patient request. Constanza Wargin, [facility] IC HEALTH ASSISTANT documented in this encounter Plan of Treatment Not on filedocumented as of this encounter Visit Diagnoses Not on filedocumented in this encounter
--- OUTSIDE RECORDS SUMMARY | 2018-09-05 12:51 | XMS REPORT | Encounter Summary ---
Author Author [facility] Organization [facility] Address Unknown Phone Unavailable Care Team Providers Care Family Services Worker Name Role Phone No Pcp, Na PCP Unavailable Reason for Referral * Radiology Services (Routine) Referred By Contact Referred To Contact Status Reason Specialty Diagnoses / Procedures Dejon Wagner MD [address] [place] [address] New Request Radiology Diagnoses Malignant neoplasm of right kidney, except renal pelvis (HCC) P rocedures CT ABDOMEN WO/W CONTRAST Reason for Visit * Reason Comments Kidney Cancer Encounter Details Care Team Description Date Type Department Dejon Wagner MD [address] [place] [address] Malignant neoplasm of right kidney, except renal pelvis (HCC) (Primary Dx) 08/11/2018 Office Visit [facility] [address] [place] [id number] Social History Date Tobacco Use Types Packs/Day [...] Pressure 62 08/11/2018 12:46 PM CDT Pulse - - Temperature - - Respiratory Rate - - Oxygen Saturation - - Inhaled Oxygen Concentration 78 kg (172 lb) 08/11/2018 12:46 PM CDT Weight 180.3 cm (5' 11") 08/11/2018 12:46 PM CDT Height 23.99 08/11/2018 12:46 PM CDT Body Mass Index documented in this encounter Progress Notes * Dejon Wagner MD - 08/11/2018 1:45 PM CDT Date of Service: 08/11/2018 Subjective: Tara Castillo is a 73 y.o. female. History of Present Illness 73-year-old white female with a history of incidentally discovered right renal m ass status post ablation of that in March. She returns today with a follow-up CT scan. She describes some numbness in her flank but denies any pain or hemat uria she denies any other symptoms. She is doing well from her colon cancer. Medical History: Diagnosis Date Cancer of colon (HCC) Surgical History: Procedure Laterality Date CATARACT REMOVAL N/A 10/2017 COLON SURGERY COLONOSCOPY SIGMOIDECTOMY Social History Socioeconomic History Marital status: Spouse name: Not on file Number of children: Not on file Years of education: Not on file Highest education level: Not on file Occupational History Not on file Tobacco Use Smoking status: Former Smoker Packs/day: 0.50 Types: Cigarettes Smokeless tobacco: Never Used Substance and Sexual Activity Alcohol use: No Frequency: Never Drug use: No Sexual activity: Not on file Other Topics Concern Not on file Social History Narrative Not on file Family History Problem Relation Age of Onset Hypertension Mother Hypertension Father Cancer-Colon Maternal Aunt Hypertension Maternal Aunt Review of Systems Constitutional: Negative. HENT: Negative. Eyes: Negative. Respiratory: Negative. Gastrointestinal: Negative. Endocrine: Negative. Genitourinary: Negative. Neurological: Negative. Hematological: Negative. Psychiatric/Behavioral: Negative. Objective: acetaminophen (TYLENOL) 325 mg tablet Take 325 mg by mouth as Needed for Rosario n. aspirin/acetaminophen/caffeine(+) (EXCEDRIN EXTRA STRENGTH) 250/250/65 mg ta b Take 1 tablet by mouth as Needed. docusate (COLACE) 100 mg capsule Take 100 mg by mouth as Needed for Constipa tion. folic acid/multivit-min/lutein (CENTRUM SILVER PO) Take 1 tablet by mouth da atif. Lactobac no.41-Bifidobact no.7 (PROBIOTIC-10) 70 mg (3 billion cell) cap Gelacio e 1 capsule by mouth daily. Vitals: 08/11/18 1246 BP: 166/69 Pulse: 62 Weight: 78 kg (172 lb) Height: 180.3 cm (71") Body mass index is 23.99 kg/m. Physical Exam Constitutional: She is oriented to person, place, and time. She appears well-dev eloped and well-nourished. No distress. HENT: Head: Normocephalic and atraumatic. Eyes: Pupils are equal, round, and reactive to light. EOM are normal. Neck: Normal range of motion. Neck supple. Cardiovascular: Normal rate. Pulmonary/Chest: Effort normal. Abdominal: Soft. She exhibits no distension and no mass. There is no tenderness. There is no rebound and no guarding. No hernia. Musculoskeletal: Normal range of motion. She exhibits no edema. Neurological: She is alert and oriented to person, place, and time. No cranial n erve deficit. Skin: Skin is warm. She is not diaphoretic. Psychiatric: She has a normal mood and affect. CT preliminary no evidence of residual disease Assessment and Plan: 1. History of right renal mass s/p cryoablation. Follow up in 6 [address] with a repeat [address]. documented in this encounter Plan of Treatment Order Schedule Name Type Priority Associated Diagnoses Expected: 08/11/2018 (Approximate), Expires: 08/12/2019 CT ABDOMEN WO/W CONTRAST Imaging Routine Malignant neoplasm of right kidney, except renal pelvis (HCC) documented as of this encounter Visit Diagnoses Diagnosis Malignant neoplasm of right kidney, except renal pelvis (HCC) - Primary Malignant neoplasm of kidney, except pelvis documented in this encounter
--- OUTSIDE RECORDS SUMMARY | 2018-09-05 12:52 | XMS REPORT ---
Author Author Migration, Doctor Organization [facility] Address Unknown Phone Unavailable Care Team Providers Care Electrician Helper Automotive Name Role Phone Migration, Doctor Unavailable Unavailable PROBLEMS Type Condition ICD9-CM Code [id number] Code Onset Dates Condition Status SNOMED Code Problem Acute suppurative otitis media without spontaneous rupture of eardrum 382.00 Active [id number] ALLERGIES No Information ENCOUNTERS Encounter Location Date Diagnosis [address] [id number] [id number] Jun, Primary malignant neoplasm C80.1 [facility] [address] [facility] [id number], [place] [address] Jun, [facility] [address] [facility] [id number], [place] [address] Jun, [facility] [address] [facility] [id number] [place], [place] [id number] Apr, IMMUNIZATIONS No Known Immunizations SOCIAL HISTORY Never Assessed REASON FOR VISIT EMR-[facility] PLAN OF CARE VITAL SIGNS MEDICATIONS Unknown Medications RESULTS No Results PROCEDURES No Known procedures INSTRUCTIONS MEDICATIONS ADMINISTERED No Known Medications
--- OUTSIDE RECORDS SUMMARY | 2018-09-05 12:52 | XMS REPORT | Encounter Summary ---
Author Author [facility] Organization [facility] Address Unknown Phone Unavailable Care Team Providers Care Metal Machine Setter Name Role Phone No Pcp, Na PCP Unavailable Reason for Referral * Radiology Services (Routine) Referred By Contact Referred To Contact Status Reason Specialty Diagnoses / Procedures Dejon Wagner MD [address] [place] [address] [facility] [address] [address] No Auth Needed Radiology Diagnoses Malignant neoplasm of right kidney (HCC) P rocedures CT GUIDE FOR RF ABLATION PERC IR ABLATION CHG CT GUIDANCE &MONITORING VISC TISS ABLATION NH ABLTJ 1/> RENAL TUMOR PRQ UNI RADIOFREQUENCY Reason for Visit * Reason Comments Heme/Onc Care * Consult, Test & Treat (Routine) Referred By Contact Referred To Contact Status Reason Specialty Diagnoses / Procedures Yehuda Gabriel DO [address] [place] [address] Cc - Ww Cl Exm/Proc [address] No Auth Needed Oncology Diagnoses right renal mass history of colon cancer Encounter Details Care Team Description Date Type Department Dejon Wagner MD [address] [place] [address] [phone] Malignant neoplasm of right kidney (HCC) (Primary Dx) 03/31/2018 Office Visit [facility] [place] [address] Social History Date Tobacco Use Types Packs/Day [...] Signs Reading Time Taken Comments Vital Sign 153/79 03/31/2018 9:19 AM RUBY DEVELOPER Blood Pressure 77 03/31/2018 9:19 AM RUBY DEVELOPER Pulse 37 C (98.6 F) 03/31/2018 9:19 AM RUBY DEVELOPER Temperature 16 03/31/2018 9:19 AM RUBY DEVELOPER Respiratory Rate 100% 03/31/2018 9:19 AM RUBY DEVELOPER Oxygen Saturation - - Inhaled Oxygen Concentration 74.7 kg (164 lb 9.6 oz) 03/31/2018 9:19 AM RUBY DEVELOPER Weight 175.3 cm (5' 9") 03/31/2018 9:19 AM RUBY DEVELOPER Height 24.31 03/31/2018 9:19 AM RUBY DEVELOPER Body Mass Index documented in this encounter Progress Notes * Dejon Wagner MD - 03/31/2018 9:30 AM RUBY DEVELOPER Date of Service: 03/31/2018 Subjective: Tara Castillo is a 72 y.o. female who presents for evaluation. History of Present Illness Ms. Castillo is a 72-year-old female with a history of invasive moderately differe ntiated colon carcinoma diagnosed in 2016 status post laparoscopic sigmoid colon resection May 17, 2016, FOLFOX therapy- oxaliplatin plus 5-FU. In brief, she originally presented with 2 days of left lower quadrant pain and was found to have a bowel obstruction that prompted imaging, which revealed a 3.7cm mass. Surgical pathology revealed an 8cm transmural invasion with subserosal extension . lymph nodes was positive. After the surgery, she developed persistent an emia and underwent colonoscopy in July 2016, which revealed another ulcerative le delfin on the right side of colon. This was biopsied. The biopsy was complicated by perforation requiring exploratory laparotomy and right hemicolectomy. The p athology from this biopsy revealed moderately differentiated adenocarcinoma exte nding into the muscle. Following this, she resumed her FOLFOX regimen. She has had hematologic abnormalities, primarily leukocytopenia and thrombocytopenia fr om chemotherapy and completed 7/12 cycles. Her one year follow-up colonoscopy w as unremarkable. Follow-up CT scan in July 2016 did reveal a 1.8 cm hypodense lesion with enhancem ent within the right hepatic lobe in addition to a partially exophytic 2.1 cm ma ss arising from the posterior margin of the right kidney. Additionally, she had a partially exophytic 2.1 cm mass arising from the posterior margin of the right kidney. Subsequent CT scan in May 2017 revealed an overall stable exam. In January 2018, she developed a partial small bowel obstruction and CT scan at t hat time revealed a slight increase in the size of the kidney lesion. This part ial small bowel obstruction required exploratory laparotomy and lysis of adhesio ns on February 10, 2018. Ms. Castillo she had colon cancer a bunch of surgeries fo r it and then in February 2018, MRI of the abdomen revealed the right renal mass to measure 2.9 x 1.8 cm in the right lobe liver lesion measured 1.3 x 1.17. She ultimately underwent CT-guided needle biopsy of the liver mass 03/27/18, the pat hology of which is pending. Review of Systems Constitutional: Negative for chills, diaphoresis, fatigue, fever and unexpected weight change. HENT: Negative for hearing loss, mouth sores, nosebleeds, trouble swallowing and voice change. Eyes: Negative for photophobia and visual disturbance. Respiratory: Negative for apnea, cough, chest tightness, shortness of breath, wh eezing and stridor. Cardiovascular: Negative for chest pain, palpitations and leg swelling. Gastrointestinal: Negative for abdominal distention, abdominal pain, blood in st ool, constipation, diarrhea, nausea and vomiting. Genitourinary: Negative for difficulty urinating, dyspareunia, dysuria, flank pa in, frequency, genital sores, hematuria, menstrual problem, pelvic pain, urgency , vaginal bleeding and vaginal discharge. Musculoskeletal: Negative for arthralgias, back pain, joint swelling and myalgia s. Skin: Negative for rash and wound. Neurological: Negative for dizziness, weakness and headaches. Hematological: Negative for adenopathy. Does not bruise/bleed easily. Psychiatric/Behavioral: Negative for confusion. The patient is not nervous/anxio us. Past Medical History: Diagnosis Date Cancer of colon (HCC) Past Surgical History: Procedure Laterality Date CATARACT REMOVAL N/A 10/2017 COLON SURGERY COLONOSCOPY SIGMOIDECTOMY Family History Problem Relation Age of Onset Hypertension Mother Hypertension Father Cancer-Colon Maternal Aunt Hypertension Maternal Aunt Current Outpatient Medications Medication Sig Dispense Refill acetaminophen (TYLENOL) 325 mg tablet Take 325 [...] Gelacio e 1 capsule by mouth daily. No current facility-administered medications for this visit. No Known Allergies Social History Socioeconomic History Marital status: Spouse name: Not on file Number of children: Not on file Years of education: Not on file Highest education level: Not on file Social Needs Financial resource strain: Not on file Food insecurity - worry: Not on file Food insecurity - inability: Not on file Transportation needs - medical: Not on file Transportation needs - non-medical: Not on file Occupational History Not on file Tobacco Use Smoking status: Former Smoker Packs/day: 0.50 Types: Cigarettes Smokeless tobacco: Never Used Substance and Sexual Activity Alcohol use: No Frequency: Never Drug use: No Sexual activity: Not on file Other Topics Concern Not on file Social History Narrative Not on file Objective: Vitals: 03/31/18 0919 BP: 153/79 Pulse: 77 Resp: 16 Temp: 37 C (98.6 F) TempSrc: Oral SpO2: 100% Weight: 74.7 kg (164 lb 9.6 oz) Height: 175.3 cm (69") Body mass index is 24.31 kg/m. Physical Exam Constitutional: She is oriented to person, place, and time. She appears well-dev eloped and well-nourished. HENT: Head: Normocephalic and atraumatic. Eyes: Conjunctivae are normal. No scleral icterus. Neck: Normal range of motion. Neck supple. Pulmonary/Chest: Effort normal. No respiratory distress. Abdominal: Soft. She exhibits no distension and no mass. There is no tenderness. There is no rebound and no guarding. Musculoskeletal: Normal range of motion. Neurological: She is alert and oriented to person, place, and time. Skin: Skin is warm and dry. Psychiatric: She has a normal mood and affect. Her behavior is normal. Assessment and Plan: Problem Malignant Neoplasm of Right Kidney (Hcc) Ms. Castillo is a 72-year-old female with a history of invasive moderately differ ential colon carcinoma diagnosed in 2016. She is undergone lap scopic sigmoid c olon resection in April 2016 followed by FOLFOX therapy. During her chemothe rapy, she developed an enteric perforation from colonoscopy requiring expiratory laparotomy and right hemicolectomy. Pathology from the right bacilio-colectomy al so revealed colon carcinoma. She is completed her FOLFOX regimen but surveillan ce imaging has revealed a 1.8; hypodense lesion within the right hepatic lobe. She is also developed a right renal mass which first measured 2.1 cm, but has no w been shown to increase in size of 2.9 cm. She has subsequently undergone CT-g uided needle biopsy of the liver mass, the pathology of which is pending. Malignant neoplasm of right kidney (HCC) We reviewed Ms. Castillo's history and imaging with her. We discussed the nature of solid renal masses and explained that 80% or more of these masses are expecte d to be malignant. We explained that given her extensive surgical history, she i s not a good surgical candidate for partial or radical nephrectomy. Given the s ize of this mass and the low likelihood of renal metastasis to liver, she is a g ood candidate for IR ablation. We will plan to follow-up on the final pathology from the liver mass, to confirm that it is of colonic origin. We will then arr tyrel for IR guided ablation and biopsy of the renal mass. 1. IR-guided biopsy and ablation of right renal mass Orders Placed This Encounter OUTPATIENT: IR Ablation COMPREHENSIVE METABOLIC PANEL CBC PROTIME INR (PT) Shahab Vale MD Urology PGY 1 Pager - [phone] I have examined the patient's past medical, surgical, family, and social history as well as current medications and allergies. Patient examined and plan of care discussed with Dr. Wagner who guided th e evaluation and treatment plan. ATTESTATION I personally performed the lopez portions of the E/M visit, discussed case with re sident and concur with resident documentation of history, physical exam, assessm ent, and treatment plan unless otherwise noted. Staff name: Dejon Wagner MD Date: 04/02/2018 DEVELOPER documented in this encounter Plan of Treatment Not on filedocumented as of this encounter Results * CT GUIDE FOR RF ABLATION PERC (04/18/2018 3:30 PM RUBY DEVELOPER) Specimen Impressions Performed At 1.Successful 18-gauge core [...] Interface, Radiant Results - 04/19/2018 1:[address]-GUIDED RIGHT RENAL MASS BIOPSY AND SUBSEQUENT [...] on 04/18/2018 3:58 PM. Performing Organization Address City/[facility]/Zipcode Phone Number [facility] RESULTS * PROTIME INR (PT) (03/31/2018 10:35 AM RUBY DEVELOPER) Pathologist [facility] INR 1.0 0.8 - 1.2 MAIN LAB Specimen Blood Performing Organization Address City/[facility]/Zipcode Phone Number MAIN LAB [address] [place] [address] * CBC (03/31/2018 10:35 AM RUBY DEVELOPER) White Blood 4.2 (L) 4.5 - 11.0 K/UL [facility] Cells RBC 4.43 4.0 - 5.0 M/UL [facility] Hemoglobin 13.9 12.0 - 15.0 GM/DL [facility] Hematocrit 40.3 36 - 45 % [facility] MCV 90.9 80 - 100 FL [facility] MCH 31.4 26 - 34 PG [facility] MCHC 34.5 32.0 - 36.0 G/DL [facility] RDW 12.5 11 - 15 % [facility] Platelet Count 172 150 - 400 K/UL [facility] MPV 7.3 7 - 11 FL [facility] Specimen Blood Performing Organization Address [facility] Phone Number [facility] [address] [phone] * COMPREHENSIVE METABOLIC PANEL (03/31/2018 10:35 AM RUBY DEVELOPER) Sodium 138 137 - 147 MMOL/L [facility] Potassium 4.4 3.5 - 5.1 MMOL/L [facility] Chloride 107 98 - 110 MMOL/L [facility] Glucose 102 (H) 70 - 100 MG/DL [facility] Blood Urea 11 7 - 25 MG/DL [facility] Nitrogen Creatinine 0.69 0.4 - 1.00 MG/DL [facility] Calcium 9.9 8.5 - 10.6 MG/DL [facility] Total Protein 6.7 6.0 - 8.0 G/DL [facility] Total Bilirubin 0.7 0.3 - 1.2 MG/DL [facility] Albumin 4.0 3.5 - 5.0 G/DL [facility] Alk Phosphatase 62 25 - 110 U/L [facility] AST (SGOT) 16 7 - 40 U/L [facility] CO2 27 21 - 30 MMOL/L [facility] ALT (SGPT) 10 7 - 56 U/L [facility] Anion Gap 4 3 - 12 [facility] eGFR Non >60 >60 mL/min [facility] Comment: [place] The eGFR is not validated for use in drug dosing adjustments.Continue to use estimated creatinine clearance per dosing reference text.Please contact the Clinical Pharmacist for questions. eGFR >60 >60 mL/min [facility] [place] Comment: The eGFR is not validated for use in drug dosing adjustments.Continue to use estimated creatinine clearance per dosing reference text.Please contact the Clinical Pharmacist for questions. Specimen Blood Performing Organization Address [facility] Phone Number [facility] [address] [phone] documented in this encounter Visit Diagnoses Diagnosis Malignant neoplasm of right kidney (HCC) - Primary * Assessment & Plan Note - Shahab Vale MD - 03/31/2018 11:10 AM RUBY DEVELOPER Associated Problem(s): Malignant neoplasm of right kidney (HCC) We reviewed Ms. Castillo's history and imaging with her. We discussed the nature of solid renal masses and explained that 80% or more of these masses are expecte d to be malignant. We explained that given her extensive surgical history, she i s not a good surgical candidate for partial or radical nephrectomy. Given the s ize of this mass and the low likelihood of renal metastasis to liver, she is a g ood candidate for IR ablation. We will plan to follow-up on the final pathology from the liver mass, to confirm that it is of colonic origin. We will then arr tyrel for IR guided ablation and biopsy of the renal mass. 1. IR-guided biopsy and ablation of right renal mass DEVELOPER documented in this encounter
--- OUTSIDE RECORDS SUMMARY | 2018-09-05 12:52 | XMS REPORT | Encounter Summary ---
Author Author [facility] Organization [facility] Address Unknown Phone Unavailable Care Team Providers Care Assembler Cards And Announcements Name Role Phone PCP Unavailable Encounter Details Care Team Description Date Type Department 02/08/2018 [facility] [address] [phone] Social History Date Tobacco Use Types Packs/Day Years Used Never Assessed Sex Assigned at Date Recorded Not on file Industry Job Start Date Occupation Not on file Not on file Not on file Travel End Travel History Travel Start No recent travel history available. documented as of this encounter Plan of Treatment Not on filedocumented as of this encounter Procedures Comments Procedure Name Priority Date/Time Associated Diagnosis CT ABD/PEL EXTERNAL Routine 02/08/2018 Diagnosis unknown IMAGING 6:15 AM INTAKE CLERK documented in this encounter Results * CT ABD/PEL EXTERNAL IMAGING (02/08/2018 6:15 AM INTAKE CLERK) Specimen Narrative Performed At This order has been auto finalized and does not contain a result. documented in this encounter Visit Diagnoses Diagnosis Diagnosis unknown Other unknown and unspecified cause of morbidity or mortality documented in this encounter
--- OUTSIDE RECORDS SUMMARY | 2018-09-05 12:52 | XMS REPORT | Encounter Summary ---
Author Author [facility] Organization [facility] Address Unknown Phone Unavailable Care Team Providers Care Office Machine Repair Shop Supervisor Name Role Phone No Pcp, Na PCP Unavailable Reason for Visit * Reason Comments Consult Right renal mass ablation Encounter Details Care Team Description Date Type Department Constanza Hinson RN Consult (Right renal mass ablation) 04/04/2018 Telephone [facility] [address] [address] Social History Date Tobacco Use Types Packs/Day [...] Telephone Encounter - Constanza Hinson RN - 04/04/2018 11:01 AM MANAGEMENT CONSULTANT IR Progress Note Referral received from Dr. Wagner for a right renal mass ablation. Dr. Michaela avalos reviewed outside MRI from 02/2018, plan for MWA. Call placed to patient to discuss scheduling a consult with Dr. Keith. Michele rodgers, scheduled for 04/07 at 1:45. Appointment instructions and call back number giv en to patient over the phone. No further questions at this time. Constanza Hinson RN BSN GEMENT CONSULTANT documented in this encounter Plan of Treatment Not on filedocumented as of this encounter Visit Diagnoses Not on filedocumented in this encounter
--- OUTSIDE RECORDS SUMMARY | 2018-09-05 12:52 | XMS REPORT | Encounter Summary ---
Author Author [facility] Organization [facility] Address Unknown Phone Unavailable Care Team Providers Care Dairy Processing Equipment Operator Name Role Phone No Pcp, Na PCP Unavailable Reason for Visit * Reason Comments Procedure MWA Encounter Details Care Team Description Date Type Department Constanza Hinson RN Procedure (MWA) 04/06/2018 Telephone [facility] [address] [address] Social History Date Tobacco Use Types Packs/Day [...] Telephone Encounter - Constanza Hinson RN - 04/06/2018 1:42 PM CABINET FINISHER IR Progress Note Patient called and scheduled right renal MWA and biopsy. Scheduled for 04/18 at 1 2:00. Patient will check in at 10:30, will bring truck driver heavy, NPO at 4am, water until 2am. Pre procedure instructions given to patient via telephone. Patient verbali zed understanding. No further questions at this time. Constanza Hinson RN BSN NET FINISHER * Telephone Encounter - Constanza Hinson RN - 04/06/2018 12:24 PM CABINET FINISHER IR Progress Note Call placed to patient to discuss canceling consult and schedule procedure. Dr. Keith aware and okay with this plan. Was unable to reach her. Message left for patient to return call. Consult appt f or tomorrow canceled. Constanza Hinson RN BSN NET FINISHER documented in this encounter Plan of Treatment Not on filedocumented as of this encounter Visit Diagnoses Not on filedocumented in this encounter
--- OUTSIDE RECORDS SUMMARY | 2018-09-05 12:52 | XMS REPORT | Encounter Summary ---
Author Author [facility] Organization [facility] Address Unknown Phone Unavailable Care Team Providers Care Assistant Community Director Name Role Phone No Pcp, Na PCP Unavailable Reason for Referral * Consult, Test & Treat (Routine) Referred By Contact Referred To Contact Status Reason Specialty Diagnoses / Procedures Dejon Wagner MD [address] [place] [address] [facility] [address] [address] New Request Specialty Services Radiology Diagnoses Required Malignant neoplasm of right kidney (HCC) Encounter Details Care Team Description Date Type Department Constanza Hinson RN Malignant neoplasm of right kidney (HCC) (Primary Dx) 04/04/2018 Orders Only [facility] [address] [address] Social History Date Tobacco Use Types Packs/Day [...] Order Schedule Name Type Priority Associated Diagnoses Ordered: 04/04/2018 AMB REFERRAL TO Outpatient Routine Malignant neoplasm of INTERVENTIONAL Referral right kidney (HCC) RADIOLOGISTS documented as of this encounter Visit Diagnoses Diagnosis Malignant neoplasm of right kidney (HCC) - Primary documented in this encounter
--- OUTSIDE RECORDS SUMMARY | 2018-09-05 12:52 | XMS REPORT | Encounter Summary ---
Author Author [facility] Organization [facility] Address Unknown Phone Unavailable Care Team Providers Care Ror Engineer Name Role Phone PCP Unavailable Encounter Details Care Team Description Date Type Department 03/25/2017 [facility] [address] [phone] Social History Date Tobacco Use Types Packs/Day [...] Comments Procedure Name Priority Date/Time Associated Diagnosis MRI ABDOMEN EXTERNAL Routine 03/25/2017 Diagnosis unknown IMAGING 12:00 AM MANAGER BUSINESS documented in this encounter Results * MRI ABDOMEN EXTERNAL IMAGING (03/25/2017 12:00 AM MANAGER BUSINESS) Specimen Narrative Performed At This order has been auto finalized and does not contain a result. documented in this encounter Visit Diagnoses Diagnosis Diagnosis unknown Other unknown and unspecified cause of morbidity or mortality documented in this encounter
--- OUTSIDE RECORDS SUMMARY | 2018-09-05 12:52 | XMS REPORT | Encounter Summary ---
Author Author [facility] Organization [facility] Address Unknown Phone Unavailable Care Team Providers Care Rounding Machine Tender Name Role Phone PCP Unavailable Encounter Details Care Team Description Date Type Department 03/17/2017 [facility] [address] [phone] Social History Date Tobacco Use Types Packs/Day [...] Procedure Name Priority Date/Time Associated Diagnosis CT CHEST/ABD/PEL EXTERNAL Routine 03/17/2017 Diagnosis unknown IMAGING 10:45 AM HARD ROCK MINER BLASTING documented in this encounter Results * CT CHEST/ABD/PEL EXTERNAL IMAGING (03/17/2017 10:45 AM HARD ROCK MINER BLASTING) Specimen Narrative Performed At This order has been auto finalized and does not contain a result. documented in this encounter Visit Diagnoses Diagnosis Diagnosis unknown Other unknown and unspecified cause of morbidity or mortality documented in this encounter
--- OUTSIDE RECORDS SUMMARY | 2018-09-05 12:52 | XMS REPORT | Encounter Summary ---
Author Author [facility] Organization [facility] Address Unknown Phone Unavailable Care Team Providers Care Sales Planning Analyst Name Role Phone No Pcp, Na PCP Unavailable Reason for Referral * Radiology Services (Routine) Referred By Contact Referred To Contact Status Reason Specialty Diagnoses / Procedures Dejon Wagner MD [address] [place] [address] New Request Radiology Diagnoses Malignant neoplasm of right kidney (HCC) P rocedures CT GUIDE NEEDLE PLACEMENT IR RENAL BIOPSY Encounter Details Care Team Description Date Type Department Dejon Wagner MD [address] [place], [place] [phone] Malignant neoplasm of right kidney (HCC) (Primary Dx) 04/06/2018 Orders Only The [address] [phone] Social History Date Tobacco Use Types Packs/Day [...] of this encounter Results * CT GUIDE NEEDLE PLACEMENT (04/18/2018 3:30 PM MANUAL WINDER) Specimen Impressions Performed At 1.Successful 18-gauge core [...] Interface, Radiant Results - 04/19/2018 1:[address]-GUIDED RIGHT RENAL MASS BIOPSY AND SUBSEQUENT [...] and the introducer needle removed. Next, an [employer] 17 Gauge microwave ablation antenna was advanced [...]
--- OUTSIDE RECORDS SUMMARY | 2018-09-05 12:52 | XMS REPORT | Encounter Summary ---
Author Author [facility] Organization [facility] Address Unknown Phone Unavailable Care Team Providers Care Merry Go Round Operator Name Role Phone PCP Unavailable Encounter Details Care Team Description Date Type Department 05/24/2017 [facility] [address] [phone] Social History Date Tobacco Use Types Packs/Day [...] Date/Time Associated Diagnosis CT CHEST/ABD/PEL EXTERNAL Routine 05/24/2017 Diagnosis unknown IMAGING 12:10 PM ADMINISTRATOR OF HOME HEALTH documented in this encounter Results * CT CHEST/ABD/PEL EXTERNAL IMAGING (05/24/2017 12:10 PM ADMINISTRATOR OF HOME HEALTH) Specimen Narrative Performed At This order has been auto finalized and does not contain a result. documented in this encounter Visit Diagnoses Diagnosis Diagnosis unknown Other unknown and unspecified cause of morbidity or mortality documented in this encounter
--- OUTSIDE RECORDS SUMMARY | 2018-09-05 12:52 | XMS REPORT | Encounter Summary ---
Author Author [facility] Organization [facility] Address Unknown Phone Unavailable Care Team Providers Care Utility Lineman Name Role Phone No Pcp, Na PCP Unavailable Encounter Details Care Team Description Date Type Department Dejon Wagner MD [address] [place], [place] [id number] 03/31/2018 Ancillary [facility] [address] [place], [place] [id number] Social History Date Tobacco Use Types Packs/Day [...] Signs Reading Time Taken Comments Vital Sign 138/59 03/31/2018 11:06 AM REPAIRER HANDTOOLS right arm Blood Pressure 62 03/31/2018 11:03 AM REPAIRER HANDTOOLS Pulse 36.8 C (98.2 F) 03/31/2018 11:03 AM REPAIRER HANDTOOLS Temperature - - Respiratory Rate 98% 03/31/2018 11:03 AM REPAIRER HANDTOOLS Oxygen Saturation - - Inhaled Oxygen Concentration 74.9 kg (165 lb 3.2 oz) 03/31/2018 11:03 AM REPAIRER HANDTOOLS Weight 177.8 cm (5' 10") 03/31/2018 11:03 AM REPAIRER HANDTOOLS Height 23.7 03/31/2018 11:03 AM REPAIRER HANDTOOLS Body Mass Index documented in this encounter Patient Instructions * Pre-Anesthesia Medication Instructions* Quinn Sarkar - 03/31/2018 11:00 AM REPAIRER HANDTOOLS YOUR MEDICATIONS: acetaminophen (TYLENOL) 325 mg tablet Take 325 [...] Gelacio e 1 capsule by mouth daily. YOUR MEDICATION INSTRUCTIONS FOR SURGERY: Before surgery Stop the following vitamins, herbals, and natural supplements 14 days before marisol monie: Multivitamin Do not start any new vitamins, herbals, or natural supplements before surgery. Stop the following medications 7 days before surgery: Anti-inflammatory medications used for pain such as ibuprofen (Advil, Motrin) and naproxen (Aleve), Excedrin You may use acetaminophen (Tylenol) Please follow these instructions regarding your blood thinner medications: : Morning of surgery On the morning of surgery, do NOT take these medications: Remaining vitamins/supplements Ointments/creams/lotions Probiotic Docusate On the morning of surgery, take ONLY these medications with a sip (1-2 ounces) o f water: May take if needed: Other information Before surgery, please contact the clinic pharmacist with any medicine updates o r questions. E-mail: [email or web address] Before going home from the hospital, please ask your doctor when you should re-s tart your medicines that were stopped before surgery. IRER HANDTOOLS documented in this encounter Plan of Treatment Not on filedocumented as of this encounter Visit Diagnoses Not on filedocumented in this encounter
--- OUTSIDE RECORDS SUMMARY | 2018-09-05 12:52 | XMS REPORT | Encounter Summary ---
Author Author [facility] Organization [facility] Address Unknown Phone Unavailable Care Team Providers Care Mortician Helper Name Role Phone No Pcp, Na PCP Unavailable Reason for Visit * Reason Comments Results Encounter Details Care Team Description Date Type Department Dejon Wagner MD [address] [place], [place] [phone] Results 04/03/2018 Telephone The [facility] [address] [place] [address] Social History Date Tobacco Use Types Packs/Day [...] Telephone Encounter - Dejon Wagner MD - 04/03/2018 9:16 AM LATEXER Called and left VM with results of the liver biopsy and that we would proceed on with ablation of the renal mass XER documented in this encounter Plan of Treatment Not on filedocumented as of this encounter Visit Diagnoses Not on filedocumented in this encounter
--- OUTSIDE RECORDS SUMMARY | 2018-09-05 12:52 | XMS REPORT | Encounter Summary ---
Author Author [facility] Organization [facility] Address Unknown Phone Unavailable Care Team Providers Care International Trade Analyst Name Role Phone PCP Unavailable Encounter Details Care Team Description Date Type Department 03/07/2018 [facility] [address] [id number] Social History Date Tobacco Use Types Packs/Day [...] Date/Time Associated Diagnosis MRI ABDOMEN EXTERNAL Routine 03/07/2018 Diagnosis unknown IMAGING 12:00 AM TELECOMMUNICATIONS MANAGER documented in this encounter Results * MRI ABDOMEN EXTERNAL IMAGING (03/07/2018 12:00 AM TELECOMMUNICATIONS MANAGER) Specimen Narrative Performed At This order has been auto finalized and does not contain a result. documented in this encounter Visit Diagnoses Diagnosis Diagnosis unknown Other unknown and unspecified cause of morbidity or mortality documented in this encounter
--- OUTSIDE RECORDS SUMMARY | 2018-09-05 12:52 | XMS REPORT | Encounter Summary ---
Author Author [facility] Organization [facility] Address Unknown Phone Unavailable Care Team Providers Care Datastage Developer Name Role Phone No Pcp, Na PCP Unavailable Reason for Visit * Reason Comments Navigation Assessment Encounter Details Care Team Description Date Type Department Dejon Wagner MD [address] [place] [address] [phone] Navigation Assessment 03/30/[address] [phone] Social History Date Tobacco Use Types Packs/Day Years Used Never Assessed Sex Assigned at Date Recorded Not on file Industry Job Start Date Occupation Not on file Not on file Not on file Travel End Travel History Travel Start No recent travel history available. documented as of this encounter Miscellaneous Notes * Telephone Encounter - Elisa Robles RN - 03/30/2018 4:56 PM WASTE MANAGEMENT RECYCLING TECHNICIAN Navigation Intake Assessment Document Patient Name: Tara Castillo : 1945 Insurance: [facility] Appointment Info: Future Appointments Date Time Provider Department Center 03/31/2018 9:30 AM Dejon Wagner MD [facility] Exam 03/31/2018 11:00 AM [id number] Diagnosis & Reason for Visit: Right renal mass Physician Info: Referring Physician: Yehuda Gabriel DO GI Surgeon: Same Medical Oncologist: Radha Bose MD PCP: None Location of Films: PACS Location of Pathology: None related to reason for visit History of Present Illness: - 72 y/o female who was diagnosed with colon cancer 2017, for which she has had sigmoid colon resection, FOLFOX and Oxaliplatin plus 5FU. Imaging obtained durmaddie hurtado the course of colon cancer treatment noted a right renal mass, there is been n o intervention concerning renal mass. - 08/17/2016 CT SCAN C/A/P - A 1.8 cm cm hyperdense lesion with enhancement see n in the right hepatic lobe slightly more prominent compared to the previous exa m. This could potentially relate to a hemangioma rather than metastasis and is p erhaps better seen on the current exam due to contrast phase difference. A liver mass protocol MRI for further evaluation is recommended. Partially exophytic 2.1 cm mass arising from the posterior margin of the right kidney, indeterminate. This could also be evaluated on he liver mass protocol MRI. Small amount of free pelvic fluid of uncertain etiology. - 05/24/2017 CT SCAN C/A/P - Overall stable CT A/P when compared with prior exa m from 03/17/2017. No acute finding is seen. There is some free fluid in the pel vis, similar to prior exam. The right renal mass is stable. - 02/10/2018 CT SCAN A/P - In the interval since the prior exam, several dilate d gas filled and fluid filled segments of small bowel have developed. This appea lynn does suggest a partial small bowel obstruction. Recommendations as above. The mass along the posterior aspect of the right kidney seen previously does marimar sure larger on this exam. This finding is worrisome for neoplasm. If further archie ging is desired, MRI should be obtained. A urologic consult would also be recomm ended. There is no acute abnormality of the abdomen and pelvis otherwise. - 03/07/2018 MR ABD - Heterogeneous signal right renal mass which is increasing in size and currently measure 2.9 x 1.8 cm, highly concerning for RCC. Recommend workup for definitive diagnosis. Nonspecific lesion within the right lobe of the liver measuring currently 1.3 x 1.1 cm. There is central nodular enhancement within the lesion and the lesion does not have an imaging appearance diagnostic for a specific benign liver lesion. Particularly given the provided history of c olon cancer and the right renal lesion concerning for malignancy, a metastatic l esion is in the differential diagnosis and biopsy of the lesion for definitive d iagnosis is recommended. No evidence of cirrhosis. Benign left hepatic cysts. No identified abnormally enlarged lymph node within the abdomen specifically meeti ng size criteria for adenopathy. - 03/27/2017 CT guided needle biopsy of liver was obtained, path result not josé miguel ilable yet, will obtain. Referred to Urology for further evaluation and treatment. Comments: Elisa Wilks, MS, RN spoke with patient and informed her of date , time and location of appointment. Patient verbalized understanding. Schedulin g letter sent to patient. E MANAGEMENT RECYCLING TECHNICIAN documented in this encounter Plan of Treatment Not on filedocumented as of this encounter Visit Diagnoses Not on filedocumented in this encounter
--- OUTSIDE RECORDS SUMMARY | 2018-09-05 12:53 | XMS REPORT ---
Author Author Migration, Doctor Organization [facility] Address Unknown Phone Unavailable Care Team Providers Care Quantitative Analyst Developer Name Role Phone Migration, Doctor Unavailable Unavailable PROBLEMS Type Condition ICD9-CM Code FNZ85-CL Code Onset Dates Condition Status SNOMED Code Problem Acute suppurative otitis media without spontaneous rupture of eardrum 382.00 Active 40709026 ALLERGIES No Information ENCOUNTERS Encounter Location Date Diagnosis [address] [id number] [id number] Jun, Primary malignant neoplasm C80.1 [facility] [address] [facility] [id number] [address] Jun, [facility] [address] [facility] [id number], [place] [address] Jun, [facility] [address] [facility] [id number] [place], [place] [phone] Apr, IMMUNIZATIONS No Known Immunizations SOCIAL HISTORY Never Assessed REASON FOR VISIT [facility] PLAN OF CARE VITAL SIGNS MEDICATIONS Medication Instructions Dosage Frequency Start Date End Date Duration Status Iuyrlqkb-Yexonuzhz-BM 3.5-10,000-1 mg-unit/mL-% insert 2 drop by Otic route 4 times per day for 7 day(s) Apr, Active A/B Otic 5.4-1.4 % insert 2-4 Drops into affected ear(s) by Otic route 4 times per day PRN as needed for left ear pain Apr, Active Amoxicillin 500 mg take 2 capsule by Oral route 3 times per day for 10 day(s) Apr, Active RESULTS No Results PROCEDURES No Known procedures INSTRUCTIONS MEDICATIONS ADMINISTERED No Known Medications
[2018-09-05] MEDS ORDERED: PROPOFOL INJECTION 50 ML IV ONE (13:17)
--- NOTE | 2018-09-05 13:29 | Progress Note-Pre Operative ---
Pre-Operative Progress Note H&P Reviewed The H&P was reviewed, patient examined and no changes noted. Date Seen by Provider: Sep 05, 2018 Time Seen by Provider: 13:28 Date H&P Reviewed: Sep 05, 2018 Time H&P Reviewed: 13:29 Pre-Operative Diagnosis: HISTORY COLON CANCER MARICHUY GILL DO Sep 05, 2018 13:29
--- NOTE | 2018-09-05 14:37 | Progress Note-Post Operative ---
Post-Operative Progess Note Surgeon (s)/Crib Attendant (s) Surgeon MARICHUY GILL DO Crib Attendant: na Pre-Operative Diagnosis HISTORY COLON CANCER Post-Operative Diagnosis descending colon polyp Procedure & Operative Findings Date of Procedure 09/05/18 Procedure Performed/Findings colonoscopy c hot bx polypectomy and naty inking Anesthesia Type per camp cook Estimated Blood Loss Estimated blood loss (mL): scant Specimens/Packing Specimens Removed descending colon polyp MARICHUY GILL DO Sep 05, 2018 14:37
--- NOTE | 2018-09-05 14:38 | Discharge Inst-Simple/Standard ---
Discharge Inst-Standard Patient Instructions/Follow Up Plan of Care/Instructions/FU: 2 weeks dawood Activity as Tolerated: Yes Discharge Diet: Regular Diet MARICHUY GILL DO Sep 05, 2018 14:38
[2018-09-05 14:40] VITALS: BP 129/68
--- NOTE | 2018-09-05 14:58 | Anesthesia-General Post-Op ---
MAC Patient Condition Mental Status/LOC: Same as Preop Cardiovascular: Satisfactory Nausea/Vomiting: Absent Respiratory: Satisfactory Pain: Controlled Complications: Absent Post Op Complications Complications None Follow Up Care/Instructions Patient Instructions None needed. Anesthesiology Discharge Order Discharge Order Patient is doing well, no complaints, stable vital signs, no apparent adverse anesthesia problems. No complications reported per nursing. MAYO AJ CRNA Sep 05, 2018 14:58
[2018-09-05 15:10] VITALS: BP 145/75
[2018-09-05 15:24] VITALS: BP 145/75
--- NOTE | 2018-09-05 19:50 | OPERATIVE REPORT ---
DATE OF SERVICE: 09/05/2018 PREOPERATIVE DIAGNOSIS: History of colon cancer. POSTOPERATIVE DIAGNOSIS: Colon polyps x2, descending and rectal. PROCEDURE: Colonoscopy with hot biopsy polypectomy x2 and Sara inking descending colon polyp. SURGEON: Marichuy Gabriel DO ANESTHESIA: Per PERIODONTIST. ESTIMATED BLOOD LOSS: Scant. COMPLICATIONS: None. INDICATIONS: The patient is a 73-year-old female with history of colon cancer. She understands risks and benefits of procedure and wished to proceed with procedure. Consent was signed on the chart. DESCRIPTION OF PROCEDURE: The patient was taken to the endoscopy suite, placed in left lateral recumbent position. Timeout was performed. Digital rectal exam was performed. There were no palpable polyps, masses or ulcerations. The scope was inserted in the rectum and advanced all the way to the ileocolonic anastomosis. This had normal appearance. No evidence of any recurrence. The scope was then slowly retracted back. Prep was adequate. There were no polyps, masses or ulcerations at the ileocolonic anastomosis. There were no polyps, masses or ulceration in the remainder of the ascending, transverse colon. Within the descending colon, a larger polyp was present, which hot biopsy polypectomy was performed. several pieces were taken for pathology. Just distal to this area, a 3 mL of Sara ink was injected, 1 mL in three different locations. Scope was continuously slowly retracted back. No polyps, masses or ulcerations within the remainder of the descending colon all the way down to the colonic anastomosis. Once in the rectum, scope was retroflexed. Small polyp was at the distal portion of the rectum into the anus. Hot biopsy polypectomy was performed. Scope was then returned to its normal position, slowly withdrawn until completely removed noting no other pathology. RECOMMENDATIONS: The patient will follow up in office in two weeks to discuss pathology results. I would recommend repeat colonoscopy in 3 months to reevaluate to make sure this area in the descending colon has been eradicated. If not, we will attempt again if unable to plan on a surgical excision. Job ID: [id number] DocumentID: [id number] Dictated Date: 09/05/2018 14:42:02 French Teacher Date: 09/05/2018 19:49:33 Dictated By: MARICHUY GABRIEL DO
== END 2018-09-05 15:25 | disposition home or self-care (01) ==
LOC: ENDO 12:09
PROVIDERS: ATTEND Surgery
DX: Z12.11 Encounter for screening for malignant neoplasm of colon (principal); C18.6 Malignant neoplasm of descending colon; D12.9 Benign neoplasm of anus and anal canal; D50.9 Iron deficiency anemia, unspecified; Z87.891 Personal history of nicotine dependence

== ENCOUNTER → 2018-09-18 | Outpatient (CLI) | payer BC, MEDICARE ==
--- NOTE | 2018-09-23 09:20 | Diagnostic Imaging Report ---
PET/CT SUBSEQUENT INDICATION: Colon carcinoma. EXAMINATION: After intravenous administration of 15.1 mCi of F18-FDG, a series of overlapping emission and transmission PET images was obtained. In the coronal, transaxial and sagittal planes, the area imaged extended from the skull base through the upper thighs. The injection is made at the antecubital fossa on the right kidney. The patient's height is 5'11", weight 165 pounds, blood glucose level of 96. The previous PET/CT exam of 06/15/2016 noted prominent hypermetabolic activity within the cecum. This was felt to be physiologic in nature but colonoscopy was recommended for further study. The previous PET/CT exam failed to show any sign of metastatic disease to the liver. The MRI abdomen exam of 03/07/2018 identified a heterogeneous enhancing right renal mass measuring 2.9 x 1.8 cm. This finding was felt to be highly concerning for a renal cell carcinoma. There was also a nonspecific lesion in the right lobe of the liver measuring 1.3 x 1.1 cm. On this exam, there is no hypermetabolic activity associated with the mass arising from the right kidney to suggest it is neoplastic in nature. 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 The patient has undergone ablation of the mass. The CT at or/pelvis exam performed at the [facility] on 08/11/2018 indicated that there was no abnormal enhancement of the ablation cavity to suggest residual or recurrent tumor. There is no hypermetabolic activity associated with the liver either. Specifically the 1.2 x 1.1 cm lesion in the right lobe of the liver does not show any abnormal uptake. Reportedly, there is clinical concern regarding a new lesion of the descending colon. There is no hypermetabolic activity associated with the descending colon on this study. The overall appearance the PET/CT exam does not appear to have changed adversely otherwise. There is no hypermetabolic activity to suggest the presence of neoplasm. The increased uptake in the cecum seen on the prior exam has resolved. IMPRESSION: 1. There is no hypermetabolic activity to suggest the presence of neoplasm. Specifically, there is no hypermetabolic activity associated with the liver or the descending colon. If clinical concern regarding an underlying abnormality of the descending colon persists, then colonoscopy would recommended. 2. The mass along the posterior aspect of the right kidney is felt to represent an ablation cavity from an interval microwave ablation procedure. There is no hypermetabolic activity in this area to dictate neoplastic disease. 3. These results were discussed with Dr. Bose. Dictated by: Dictated on workstation # [id number]
== END ==
LOC: RAD 11:00
PROVIDERS: ATTEND Internal Medicine Hematology & Oncology
DX: C18.7 Malignant neoplasm of sigmoid colon (principal)

== ENCOUNTER 2018-09-26 11:33 | Outpatient (CLI) | payer BC, MEDICARE ==
[~2018-09-26] VITALS: Ht 177.8 cm; Wt 76.2 kg
[2018-09-26 11:46] VITALS: BP 135/67
== END 2018-09-26 12:00 | disposition home or self-care (01) ==
LOC: PREOP 11:33
PROVIDERS: ATTEND Surgery
DX: Z01.818 Encounter for other preprocedural examination (principal)
CPT/HCPCS: 87081

== ENCOUNTER 2018-09-27 09:38 | Inpatient (IN) | payer BC, MEDICARE ==
[2018-09-27] VITALS (11 sets, daily range): BP systolic 118–142; BP diastolic 57–70
[~2018-09-27] VITALS: Ht 177.8 cm; Wt 76.2 kg
[2018-09-27] MEDS ORDERED: metroNIDAZOLE 500MG/100ML IVPB 100 ML IV ONE (09:45)
[2018-09-27] MEDS ORDERED: ceFAZolin INJECTION 1,000 MG in WATER (STERILE) FOR INJECTION 10 ML IV ONE (09:45)
[2018-09-27] MEDS: LACTATED RINGERS 1,000 ML IV PRN ×3 (10:00→14:12)
--- NOTE | 2018-09-27 10:31 | Progress Note-Pre Operative ---
Pre-Operative Progress Note H&P Reviewed The H&P was reviewed, patient examined and no changes noted. Date Seen by Provider: Sep 27, 2018 Time Seen by Provider: 10: Date H&P Reviewed: Sep 27, 2018 Time H&P Reviewed: 10:31 Pre-Operative Diagnosis: adenocarcinoma of colon MARICHUY GILL DO Sep 27, 2018 10:31
--- OUTSIDE RECORDS SUMMARY | 2018-09-27 10:32 | XMS REPORT | Encounter Summary ---
Author Author [facility] Organization [facility] Address Unknown Phone Unavailable Care Team Providers Care Undergraduate Internship Name Role Phone No Pcp, Na PCP Unavailable Reason for Referral * Radiology Services (Routine) Referred By Contact Referred To Contact Status Reason Specialty Diagnoses / [place] [address] [place] [address] [place] [address] No Auth Needed Radiology Diagnoses Malignant neoplasm of right kidney, except renal pelvis (HCC) P rocedures CT ABDOMEN WO/W CONTRAST * Radiology Services (Routine) Referred By Contact Referred To Contact Status Reason Specialty Diagnoses / Procedures Dejon Wanger MD [address] [place] [address] [address] No Auth Needed Radiology Diagnoses Malignant neoplasm of right kidney, except renal pelvis (HCC) P rocedures CT ABDOMEN WO/W CONTRAST Reason for Visit * Radiology Services (Routine) Referred By Contact Referred To Contact Status Reason Specialty Diagnoses / Procedures Dejon Wagner MD [address] [place] [address] [place] [address] [address] No Auth Needed Radiology Diagnoses Malignant neoplasm of right kidney, except renal pelvis (HCC) P rocedures CT ABDOMEN WO/W CONTRAST Encounter Details Care Team Description Date Type Department Dejon Wagner MD [address] [facility] [place], [place] [id number] 08/11/2018 [facility] [address] [address] Social History Date Tobacco Use [...] [facility] Specimen Performing Organization Address [facility] Phone [facility] [address] [place] [address] documented in this encounter Visit Diagnoses Diagnosis [...]
--- OUTSIDE RECORDS SUMMARY | 2018-09-27 10:32 | XMS REPORT | Encounter Summary ---
Author Author [facility] Organization [facility] Address Unknown Phone Unavailable Care Team Providers Care Script Manager Name Role Phone No Pcp, Na PCP Unavailable Reason for Referral * Radiology Services (Routine) Referred By Contact Referred To Contact Status Reason Specialty Diagnoses / Procedures Dejon Wagner MD [address] [place] [address] New Request Radiology Diagnoses Malignant neoplasm of right kidney, except renal pelvis (HCC) P rocedures CT ABDOMEN WO/W CONTRAST Reason for Visit * Reason Comments Kidney Cancer Encounter Details Care Team Description Date Type Department Dejon Wagner MD [address] [place] [address] Malignant neoplasm of right kidney, except renal pelvis (HCC) (Primary Dx) 08/11/2018 Office Visit The [facility] [address] [place] [phone] Social History Date Tobacco Use Types Packs/Day [...]
--- OUTSIDE RECORDS SUMMARY | 2018-09-27 10:32 | XMS REPORT | Encounter Summary ---
Author Author [facility] Organization [facility] Address Unknown Phone Unavailable Care Team Providers Care Environmental Lawyer Name Role Phone No Pcp, Na PCP Unavailable Reason for Visit * Reason Comments Follow Up Encounter Details Care Team Description Date Type Department Constanza Hinson RN Follow Up 04/20/2018 Telephone [facility] Radiology [address] [address] Social History Date Tobacco Use Types Packs/Day [...] Constanza Hinson RN - 04/20/2018 10:32 AM ELECTRICAL INSTRUMENT TECHNICIAN IR Progress Note Call placed to patient to follow up on post ablation pain and nausea. She report s that she is feeling much better and has had a bowel movement, which helped wit h her stomach discomfort. Patient also stated that she [facility] that was sent to her. Advised she contact this RN with any further questions or concerns. She verbalized understanding and has no further questions at this t dolores. Constanza Hinson RN BSN TRICAL INSTRUMENT TECHNICIAN documented in this encounter Plan of Treatment Not on filedocumented as of this encounter Visit Diagnoses Not on filedocumented in this encounter
--- OUTSIDE RECORDS SUMMARY | 2018-09-27 10:32 | XMS REPORT | Encounter Summary ---
Author Author [facility] Organization [facility] Address Unknown Phone Unavailable Care Team Providers Care Machine Pan Greaser Name Role Phone No Pcp, Na PCP Unavailable Reason for Referral * Radiology Services (Routine) Referred By Contact Referred To Contact Status Reason Specialty Diagnoses / Procedures Dejon Wagner MD [address] [place] [address] [facility] [address] [address] No Auth Needed Radiology Diagnoses Malignant neoplasm of right kidney, except renal pelvis (HCC) P rocedures CT ABDOMEN WO/W CONTRAST Reason for Visit * Reason Comments Results Encounter Details Care Team Description Date Type Department Dejon Wagner MD [address] [place], [place] [phone] Results 04/24/2018 Telephone The [facility] [address] [facility] [address] [place] [phone] Social History Date Tobacco Use Types Packs/Day [...] Dejon Wagner MD - 04/24/2018 8:48 AM FRENCH PASTRY COOK Called and left VM with results of the biopsy Will schedule patient to see me back in [address] scan CH PASTRY COOK documented in this encounter Plan of Treatment [...]
--- OUTSIDE RECORDS SUMMARY | 2018-09-27 10:32 | XMS REPORT | Clinical Summary ---
Author Author [facility] Organization [facility] Address Unknown Phone Unavailable Care Team Providers Care Power Transformer Repair Supervisor Name Role Phone No Pcp, Na PCP Unavailable Source Comments Some departments are not documenting in the electronic medical record. If you d o not see the information that you expected, contact Release of Information in [facility] Health Information Management department at [phone] for further assistan ce in locating additional records.[facility] Allergies No Known Allergies Medications End Date [...] capsule by mouth as Needed for Constipation. Active Problems Problem Noted Date Malignant neoplasm [...] 36.8 C (98.2 F) 04/18/2018 4:05 PM ADMISSIONS CLERK Temperature 16 03/31/2018 9:19 AM ADMISSIONS CLERK Respiratory Rate 93% 04/18/2018 6:30 PM ADMISSIONS CLERK Oxygen Saturation - - Inhaled Oxygen Concentration [...] Creatinine, POC 0.7 0.4 - 1.00 MG/DL ANAND MAIN LAB Specimen Performing Organization Address City/State/Zipcode Phone Number MAIN LAB [address] [place] [address] from Last 3 Months Insurance Type Payer Benefit Subscriber ID Effective Phone Address Plan / Dates Group Medicare MEDICARE MEDICARE xxxxxxxxxxx 2008-P PART A AND resent B PPO BCBS [facility] xxxxxxxxxxxx 2017- PREF CARE Present BLUE Advance Directives Patient Clinical Neuropsychologist Explanation Type Date Recorded Advance Directive/DPOA
--- OUTSIDE RECORDS SUMMARY | 2018-09-27 10:33 | XMS REPORT | Encounter Summary ---
Author Author [facility] Organization [facility] Address Unknown Phone Unavailable Care Team Providers Care Bus Greaser Name Role Phone No Pcp, Na PCP Unavailable Reason for Referral * Radiology Services (Routine) Referred By Contact Referred To Contact Status Reason Specialty Diagnoses / Procedures Dejon Wagner MD [address] [place] [address] New Request Radiology Diagnoses Malignant neoplasm of right kidney (HCC) P rocedures CT GUIDE NEEDLE PLACEMENT IR RENAL BIOPSY Encounter Details Care Team Description Date Type Department Dejon Wagner MD [address] [place], [place] [id number] Malignant neoplasm of right kidney (HCC) (Primary Dx) 04/06/2018 Orders Only The [address] [address] Social History Date Tobacco Use Types Packs/Day [...] CT GUIDE NEEDLE PLACEMENT (04/18/2018 3:30 PM SPINNER HAND) Specimen Impressions Performed At 1.Successful 18-gauge core [...] Interface, Radiant Results - 04/19/2018 1:[address]-GUIDED RIGHT RENAL MASS BIOPSY AND SUBSEQUENT [...] and the introducer needle removed. Next, an BRAIN[employer]rint 17 Gauge microwave ablation antenna was advanced [...]
--- OUTSIDE RECORDS SUMMARY | 2018-09-27 10:33 | XMS REPORT | Encounter Summary ---
Author Author [facility] Organization [facility] Address Unknown Phone Unavailable Care Team Providers Care Director Of Sleep Name Role Phone No Pcp, Na PCP Unavailable Reason for Visit * Reason Comments Post Procedure Encounter Details Care Team Description Date Type Department Constanza Hinson RN Post Procedure 04/19/2018 Telephone [facility] Radiology [address] [address] Social History Date Tobacco Use Types Packs/Day [...] Constanza Hinson RN - 04/19/2018 2:59 PM ERGONOMICS ENGINEER IR Progress Note Call made to patient [...] of recommendat ions and she verbalized understanding. [facility] paperwork completed and emailed to patient per patient request. Constanza Wargin, RN BIRTHING NOMICS ENGINEER documented in this encounter Plan of Treatment Not on filedocumented as of this encounter Visit Diagnoses Not on filedocumented in this encounter
--- OUTSIDE RECORDS SUMMARY | 2018-09-27 10:33 | XMS REPORT | Encounter Summary ---
Author Author [facility] Organization [facility] Address Unknown Phone Unavailable Care Team Providers Care Transportation Sales Consultant Name Role Phone No Pcp, Na PCP Unavailable Reason for Referral * Consult, Test & Treat (Routine) Referred By Contact Referred To Contact Status Reason Specialty Diagnoses / Procedures Dejon Wagner MD [address] [place] [address] [facility] Ir [address] [address] New Request Specialty Services Radiology Diagnoses Required Malignant neoplasm of right kidney (HCC) Encounter Details Care Team Description Date Type Department Constanza Hinson RN Malignant neoplasm of right kidney (HCC) (Primary Dx) 04/04/2018 Orders Only The [facility] Radiology [address] [address] Social History Date Tobacco Use Types Packs/Day [...]
--- OUTSIDE RECORDS SUMMARY | 2018-09-27 10:33 | XMS REPORT | Encounter Summary ---
Author Author [facility] Organization [facility] Address Unknown Phone Unavailable Care Team Providers Care Property Management Bookkeeper Name Role Phone No Pcp, Na PCP Unavailable Encounter Details Care Team Description Date Type Department Monty Bermudez SRNA 04/18/2018 Anesthesia [facility] Radiology [address] [address] Anesthesia Record Responsible Anesthesiologist Anesthesia Start Time [...] Yamil Mckeon DO - 04/18/2018 5:26 PM PRODUCT TRAINER Post-Anesthesia Evaluation Name: Tara Castillo : 1945 [...] Perioperative Event: No Emergency Case Activation: No UCT TRAINER Associated attestation - Berto Kauffman DO - 04/18/2018 5:38 PM PRODUCT TRAINER Post-Anesthesia Sign Out: I reviewed the current evaluation and agree the indicated post anesthesia care w as provided. Evaluation by: Berto Kauffman DO Date: 04/18/2018 * Anesthesia Preprocedure Evaluation - Yashira Maria MD - 04/18/2018 1:46 PM PRODUCT TRAINER Anesthesia Pre-Procedure Evaluation Name: Tara Castillo : [...] patient Blood Consent: consented Plan discussed with: MANAGER PRESENTATION. Comments: (I have seen the patient and agree with the history, physical and anes thesia plan as above. Patient agrees to proceed with planned anesthetic after ri sks/benefits/alternatives explained. -Yashira Maria M.D. ) UCT TRAINER documented in this encounter Plan of Treatment Not on filedocumented as of this encounter Visit Diagnoses Not on filedocumented in this encounter Administered Medications Action Date Dose Rate Site Medication Order MAR Action 04/18/2018 2:39 PM PRODUCT TRAINER 3 g ampicillin/sulbactam (UNASYN) 3 g in Given - New sodium chloride 0.9% (NS) 100 mL IVPB Bag (MB+) 100 mL, Administer over 60 Minutes, INTRA-PROCEDURE MED(CONT), Starting Tue04/18/18 at 1439, Until Tue04/18/18 at 1551, Anesthesia Intra-op 04/18/2018 2:27 PM PRODUCT TRAINER 4 mg dexamethasone (DECADRON) injection Given Intravenous, INTRA-PROCEDURE MED, Starting Tue04/18/18 at 1427, Until Tue04/18/18 at 1551, Anesthesia Intra-op 04/18/2018 2:22 PM PRODUCT TRAINER 1 drop dextran 70/hypromellose (GENTEAL TEARS; Given BION TEARS) ophthalmic solution INTRA-PROCEDURE MED, Starting Tue04/18/18 at 1422, Until Tue04/18/18 at 1551, Anesthesia Intra-op 04/18/2018 2:43 PM PRODUCT TRAINER 10 mg ePHEDrine 50 mg/mL 50 mg in sodium Bolus chloride PF 0.9% 5 mL IV syringe 5 mL, INTRA-PROCEDURE MED(CONT), Starting Tue04/18/18 at 1440, Until Tue04/18/18 at 1551, Anesthesia Intra-op 10 mg Given - New Bag 04/18/2018 2:40 PM PRODUCT TRAINER 04/18/2018 2:29 PM PRODUCT TRAINER 50 mcg fentaNYL citrate PF (SUBLIMAZE) Given injection INTRA-PROCEDURE MED, Starting Tue04/18/18 at 1425, Until Tue04/18/18 at 1551, Anesthesia Intra-op 50 mcg Given 04/18/2018 2:25 PM PRODUCT TRAINER 04/18/2018 2:12 PM PRODUCT TRAINER lactated ringers infusion Given - New INTRA-PROCEDURE MED(CONT), Starting Tue04/18/18 at 1412, Until Tue04/18/18 at 1551, Anesthesia Intra-op 04/18/2018 2:21 PM PRODUCT TRAINER 40 mg lidocaine (PF) injection Given INTRA-PROCEDURE MED, Starting Tue04/18/18 at 1421, Until Tue04/18/18 at 1551, Anesthesia Intra-op 04/18/2018 3:07 PM PRODUCT TRAINER 4 mg ondansetron (ZOFRAN) injection Given Intravenous, INTRA-PROCEDURE MED, Starting Tue04/18/18 at 1507, Until Tue04/18/18 at 1551, Anesthesia Intra-op 04/18/2018 2:43 PM PRODUCT TRAINER 100 mcg phenylephrine in NS injection syringe Given Intravenous, INTRA-PROCEDURE MED, Starting Tue04/18/18 at 1439, Until Tue04/18/18 at 1551, Anesthesia Intra-op 100 mcg Given 04/18/2018 2:42 PM PRODUCT TRAINER 100 mcg Given 04/18/2018 2:39 PM PRODUCT TRAINER 04/18/2018 3:06 PM PRODUCT TRAINER 40 mg propofol (DIPRIVAN) injection Given INTRA-PROCEDURE MED, Starting Tue04/18/18 at 1421, Until Tue04/18/18 at 1551, Anesthesia Intra-op 30 mg Given 04/18/2018 2:25 PM PRODUCT TRAINER 130 mg Given 04/18/2018 2:21 PM PRODUCT TRAINER 04/18/2018 2:21 PM PRODUCT TRAINER 100 mg succinylcholine (ANECTINE) injection Given Intravenous, INTRA-PROCEDURE MED, Starting Tue04/18/18 at 1421, Until Tue04/18/18 at 1551, Anesthesia Intra-op documented in this encounter
--- OUTSIDE RECORDS SUMMARY | 2018-09-27 10:33 | XMS REPORT | Encounter Summary ---
Author Author [facility] Organization [facility] Address Unknown Phone Unavailable Care Team Providers Care Orthodontist Name Role Phone No Pcp, Na PCP Unavailable Reason for Referral * Radiology Services (Routine) Referred By Contact Referred To Contact Status Reason Specialty Diagnoses / Procedures Dejon Wagner MD [address] [place] [address] New Request Radiology Diagnoses Malignant neoplasm of right kidney (HCC) P rocedures CT ABD/PELV WO/W CONTRAST Encounter Details Care Team Description Date Type Department Constanza Hinson RN Malignant neoplasm of right kidney (HCC) (Primary Dx) 04/19/2018 Orders Only The [facility] Radiology [address] [address] Social History Date Tobacco Use Types Packs/Day [...]
--- OUTSIDE RECORDS SUMMARY | 2018-09-27 10:33 | XMS REPORT | Encounter Summary ---
Author Author [facility] Organization [facility] Address Unknown Phone Unavailable Care Team Providers Care Assistant Floor Covering Printer Name Role Phone No Pcp, Na PCP Unavailable Reason for Visit * Radiology Services (Routine) Referred By Contact Referred To Contact Status Reason Specialty Diagnoses / Procedures Wendy Wagner MD [address] [place] [address] [facility] Ir [address] [address] No Auth Needed Radiology Diagnoses Malignant neoplasm of right kidney (HCC) P rocedures CT GUIDE FOR RF ABLATION PERC IR ABLATION CHG CT GUIDANCE &MONITORING VISC TISS ABLATION AK ABLTJ 1/> RENAL TUMOR PRQ UNI RADIOFREQUENCY Encounter Details Care Team Description Date Type Department Wendy Wagner MD [address] [place] [address] [phone] Екатерина Ricks, Alex Rivers MD [address] [address] [phone] Malignant neoplasm of right kidney (HCC) 04/18/2018 [facility] Radiology [address] [address] Social History Date Tobacco Use Types Packs/Day [...] Comments Vital Sign 138/69 04/18/2018 6:30 PM SCHOOL HEALTH AIDE Blood Pressure 79 04/18/2018 6:30 PM SCHOOL HEALTH AIDE Pulse 36.8 C (98.2 F) 04/18/2018 4:05 PM SCHOOL HEALTH AIDE Temperature - - Respiratory Rate 93% 04/18/2018 6:30 PM SCHOOL HEALTH AIDE Oxygen Saturation - - Inhaled Oxygen Concentration 75.8 kg (167 lb) 04/18/2018 10:56 AM SCHOOL HEALTH AIDE Weight 179.1 cm (5' 10.5") 04/18/2018 10:56 AM SCHOOL HEALTH AIDE Height 23.62 04/18/2018 10:56 AM SCHOOL HEALTH AIDE Body Mass Index documented in this encounter Discharge Instructions * Patient Instructions* Balta Tejada, TAMEKA - 04/18/2018 11:12 AM SCHOOL HEALTH AIDE INTERVENTIONAL RADIOLOGY DISCHARGE INSTRUCTIONS MICROWAVE ABLATION Microwave [...] concerns related to the procedu re, call [phone] for Tuesday-Tuesday 7-5. After-hours and weekends, [facility] call [phone] and ask for the Interventional Banquet Supervisor on-mayte john Interventional Radiology-Discharge Instructions Percutaneous Renal [...] increased shortness of breath Sudden chest pain Laexxue865.4F orhigher, orchills Increasing redness, tenderness, or swelling [...] concerns related to the procedu re, call [phone] for Tuesday-Tuesday 7-5. After-hours and weekends, ple ase call [phone] and ask for the Interventional Banquet Supervisor natanael lopez OL HEALTH AIDE documented in this encounter Medications at Time [...] Balta Tejada RN - 04/18/2018 6:39 PM SCHOOL HEALTH AIDE Patient port locked with Normal Saline per patient's device card. Port deaccess ed and dressing placed. Patient tolerated well. Patient stable and [facility] OL HEALTH AIDE * Balta Tejada RN - 04/18/2018 6:21 PM SCHOOL HEALTH AIDE Patient sitting up in cart, expressing feeling much better. Will assess again at 1830 and plan to discharge at that point. OL HEALTH AIDE * Lobito Golden RN - 04/18/2018 5:[address] Keith at bedside talking with patient and family. OL HEALTH AIDE * Екатерина Ricks RN - 04/18/2018 2:18 PM SCHOOL HEALTH AIDE Anesthesia responsible for care during procedure. Please see anesthesia flowshe et for details. OL HEALTH AIDE * Yamil Paula RN - 04/18/2018 10:57 AM SCHOOL HEALTH AIDE This RN accessed this pt's right chest port using sterile technique. Port flush ed with sterile saline and blood return noted. Sterile dressing placed on acces sed port. Pt's port is a groshong port and is NOT to be packed with heparin. I t is to be flushed with saline prior to de-access. OL HEALTH AIDE documented in this encounter H&P Notes * Darrion Boles APRN-NP - 04/18/2018 10:46 AM SCHOOL HEALTH AIDE Pre Procedure History and Physical/Sedation Plan Procedure [...] the previous H&P performed on 03/31/18. RODRIGO MimsCRIMINAL LEGAL ASSISTANT Pager [phone] OL HEALTH AIDE documented in this encounter Miscellaneous Notes * Procedures (Immed Post or Bedside) - Guille Rand MD - 04/18/2018 3:29 PM SCHOOL HEALTH AIDE Immediate Post Procedure Note Date: 04/18/2018 Attending [...] Post-Procedure Condition: stable Guille Rand MD Pager [phone] OL HEALTH AIDE documented in this encounter Plan of Treatment Not on filedocumented as of this encounter Procedures Comments Procedure Name Priority Date/Time Associated Diagnosis SURGICAL PATHOLOGY 04/18/2018 4:[address] GUIDE FOR RF ABLATION Routine 04/18/2018 Malignant neoplasm of PERC 3:30 PM SCHOOL HEALTH AIDE right kidney (HCC) CT GUIDE NEEDLE PLACEMENT Routine 04/18/2018 Malignant neoplasm of 3:30 PM SCHOOL HEALTH AIDE right kidney (HCC) documented in this encounter Results * SURGICAL PATHOLOGY (04/18/2018 4:31 PM SCHOOL HEALTH AIDE) PATHOLOGY [facility] Vaccibody LAB [facility] SupportPay SYSTEM [email or web address] Department of Pathology and Laboratory Medicine [address] [place] [address] Surgical Pathology Office:[phone] :[phone] SURGICAL PATHOLOGY REPORT NAME: EDWIN TAMAYO SURG PATH #: [id number] MR #: [id number] SPECIMEN CLASS: SR BILLING #: [id number] ALT ID #:LOCATION: DATE OF PROCEDURE: 04/18/2018 [...] CAIX, supporting the diagnosis. Pursuant to the Dye Beck Reel Operator Program at the [facility] Pathology Department, selected slides from this case [...] of Pathology and Laboratory Medicine of the [facility] ([employer]) in compliance with [...] of Pathology and Laboratory Medicine of the [facility].It has not been cleared or approved by the FDA.The FDA has determined that such clearance or approval is not necessary. Specimen Performing Organization Address City/State/Zipcode Phone Number MAIN LAB [address] [place] [address] * CT GUIDE NEEDLE PLACEMENT (04/18/2018 3:30 PM SCHOOL HEALTH AIDE) Specimen Impressions Performed At 1.Successful 18-gauge core [...] Interface, Radiant Results - 04/19/2018 1:18 [address] AIDE [address]-GUIDED RIGHT RENAL MASS BIOPSY AND SUBSEQUENT [...] FOR RF ABLATION PERC (04/18/2018 3:30 PM SCHOOL HEALTH AIDE) Specimen Impressions Performed At 1.Successful 18-gauge core [...] and the introducer needle removed. Next, an TrueNorthLogicrint 17 Gauge microwave ablation antenna was advanced [...] Interface, Radiant Results - 04/19/2018 1:[address] AIDE [address]-GUIDED RIGHT RENAL MASS BIOPSY AND SUBSEQUENT [...] and/or fellow participating. Overlapping portions were non olpez and I was immediately available. I interpret [...] Medication Order MAR Action 04/18/2018 4:34 PM SCHOOL HEALTH AIDE 50 mcg fentaNYL citrate PF (SUBLIMAZE) Given injection 50 mcg 50 mcg, Intravenous, EVERY 5 MIN PRN, Starting 04/18/18 at 1555, Until 04/18/18 at 2105, Pain Injectable, For Pain Score 4-6, Maximum total dose 200 mcg Hold if RR < 10, PACU (only) 50 mcg Given 04/18/2018 4:04 PM SCHOOL HEALTH AIDE 04/18/2018 5:30 PM SCHOOL HEALTH AIDE 5 mg oxyCODONE (ROXICODONE, OXY-IR) tablet Given 5-10 mg 5-10 mg, Oral, ONCE PRN, 1 dose, Starting Tue04/18/18 at 1555, Until Tue04/18/18 at 1730, For VAS score < 4, PACU (only) documented in this encounter
--- OUTSIDE RECORDS SUMMARY | 2018-09-27 10:33 | XMS REPORT | Encounter Summary ---
Author Author [facility] Organization [facility] Address Unknown Phone Unavailable Care Team Providers Care Liquified Natural Gas Specialist Name Role Phone No Pcp, Na PCP Unavailable Encounter Details Care Team Description Date Type Department Dejon Wagner MD [address] [place], [place] [phone] 03/31/2018 Ancillary [facility] [address] [place], [place] [id number] Social History Date Tobacco Use Types Packs/Day [...] Comments Vital Sign 138/59 03/31/2018 11:06 AM SCALE RECLAMATION TENDER right arm Blood Pressure 62 03/31/2018 11:03 AM SCALE RECLAMATION TENDER Pulse 36.8 C (98.2 F) 03/31/2018 11:03 AM SCALE RECLAMATION TENDER Temperature - - Respiratory Rate 98% 03/31/2018 11:03 AM SCALE RECLAMATION TENDER Oxygen Saturation - - Inhaled Oxygen Concentration 74.9 kg (165 lb 3.2 oz) 03/31/2018 11:03 AM SCALE RECLAMATION TENDER Weight 177.8 cm (5' 10") 03/31/2018 11:03 AM SCALE RECLAMATION TENDER Height 23.7 03/31/2018 11:03 AM SCALE RECLAMATION TENDER Body Mass Index documented in this encounter Patient Instructions * Pre-Anesthesia Medication Instructions* Quinn Sarkar - 03/31/2018 11:00 AM SCALE RECLAMATION TENDER YOUR MEDICATIONS: acetaminophen (TYLENOL) 325 mg tablet [...] any medicine updates o r questions. E-mail: [email or web address] Before going home from the hospital, please ask your doctor when you should re-s tart your medicines that were stopped before surgery. E RECLAMATION TENDER documented in this encounter Plan of Treatment Not on filedocumented as of this encounter Visit Diagnoses Not on filedocumented in this encounter
--- OUTSIDE RECORDS SUMMARY | 2018-09-27 10:33 | XMS REPORT | Encounter Summary ---
Author Author [facility] Organization [facility] Address Unknown Phone Unavailable Care Team Providers Care Hardboard Supervisor Name Role Phone No Pcp, Na PCP Unavailable Reason for Visit * Reason Comments Procedure MWA Encounter Details Care Team Description Date Type Department Constanza Hinson RN Procedure (MWA) 04/06/2018 Telephone [facility] Radiology [address] [address] Social History Date Tobacco Use Types Packs/Day [...] Constanza Hinson RN - 04/06/2018 1:42 PM RETAIL ADVISOR IR Progress Note Patient called and scheduled right renal MWA and biopsy. Scheduled for 04/18 at 1 2:00. Patient will check in at 10:30, will bring fork truck driver, NPO at 4am, water until 2am. Pre procedure instructions given to patient via telephone. Patient verbali zed understanding. No further questions at this time. Constanza Hinson RN BSN IL ADVISOR * Telephone Encounter - Constanza Hinson RN - 04/06/2018 12:24 PM RETAIL ADVISOR IR Progress Note Call placed to patient to discuss canceling consult and schedule procedure. Dr. Keith aware and okay with this plan. Was unable to reach her. Message left for patient to return call. Consult appt f or tomorrow canceled. Constanza Hinson RN BSN IL ADVISOR documented in this encounter Plan of Treatment Not on filedocumented as of this encounter Visit Diagnoses Not on filedocumented in this encounter
--- OUTSIDE RECORDS SUMMARY | 2018-09-27 10:33 | XMS REPORT | Encounter Summary ---
Author Author [facility] Organization [facility] Address Unknown Phone Unavailable Care Team Providers Care Social Welfare Research Worker Name Role Phone No Pcp, Na PCP Unavailable Reason for Visit * Reason Comments Results Encounter Details Care Team Description Date Type Department Dejon Wagner MD [address] [place], [place] [id number] Results 04/03/[address] [facility] [address] [place] [address] Social History Date Tobacco Use [...] Dejon Wagner MD - 04/03/2018 9:16 AM CLINICAL REHABILITATION SPECIALIST Called and left VM with results of the liver biopsy and that we would proceed on with ablation of the renal mass ICAL REHABILITATION SPECIALIST documented in this encounter Plan of Treatment Not on filedocumented as of this encounter Visit Diagnoses Not on filedocumented in this encounter
--- OUTSIDE RECORDS SUMMARY | 2018-09-27 10:33 | XMS REPORT | Encounter Summary ---
Author Author [facility] Organization [facility] Address Unknown Phone Unavailable Care Team Providers Care Paid Internship Name Role Phone No Pcp, Na PCP Unavailable Reason for Visit * Reason Comments Consult Right renal mass ablation Encounter Details Care Team Description Date Type Department Constanza Hinson RN Consult (Right renal mass ablation) 04/04/2018 Telephone [facility] Radiology [address] [address] Social History Date Tobacco Use Types Packs/Day [...] Constanza Hinson RN - 04/04/2018 11:01 AM SIGNALS INTELLIGENCE ANALYST IR Progress Note Referral received from Dr. Wagner for a right renal mass ablation. Dr. Michaela avalos reviewed outside MRI from 02/2018, plan for MWA. Call placed to patient to discuss scheduling a consult with Dr. eKith. Michele rodgers, scheduled for 04/07 at 1:45. Appointment instructions and call back number giv en to patient over the phone. No further questions at this time. Constanza Hinson RN BSN ALS INTELLIGENCE ANALYST documented in this encounter Plan of Treatment Not on filedocumented as of this encounter Visit Diagnoses Not on filedocumented in this encounter
--- OUTSIDE RECORDS SUMMARY | 2018-09-27 10:34 | XMS REPORT | Encounter Summary ---
Author Author [facility] Organization [facility] Address Unknown Phone Unavailable Care Team Providers Care Professional Volleyball Player Name Role Phone No Pcp, Na PCP Unavailable Reason for Referral * Radiology Services (Routine) Referred By Contact Referred To Contact Status Reason Specialty Diagnoses / Procedures Dejon Wagner MD [address] [place] [address] Bh2 Ir [address] [address] No Auth Needed Radiology Diagnoses Malignant neoplasm of right kidney (HCC) P rocedures CT GUIDE FOR RF ABLATION PERC IR ABLATION CHG CT GUIDANCE &MONITORING VISC TISS ABLATION WA ABLTJ 1/> RENAL TUMOR PRQ UNI RADIOFREQUENCY Reason for Visit * Reason Comments Heme/Onc Care * Consult, Test & Treat (Routine) Referred By Contact Referred To Contact Status Reason Specialty Diagnoses / Procedures Yehuda Gabriel DO [address] [place] [address] Cc - Ww Cl Exm/Proc [address] No Auth Needed Oncology Diagnoses right renal mass history of colon cancer Encounter Details Care Team Description Date Type Department Dejon Wagner MD [address] [place] [address] [phone] Malignant neoplasm of right kidney (HCC) (Primary Dx) 03/31/2018 Office Visit [facility] [place] [address] Social History Date Tobacco Use Types Packs/Day [...] Comments Vital Sign 153/79 03/31/2018 9:19 AM COUNTER ROLLER Blood Pressure 77 03/31/2018 9:19 AM COUNTER ROLLER Pulse 37 C (98.6 F) 03/31/2018 9:19 AM COUNTER ROLLER Temperature 16 03/31/2018 9:19 AM COUNTER ROLLER Respiratory Rate 100% 03/31/2018 9:19 AM COUNTER ROLLER Oxygen Saturation - - Inhaled Oxygen Concentration 74.7 kg (164 lb 9.6 oz) 03/31/2018 9:19 AM COUNTER ROLLER Weight 175.3 cm (5' 9") 03/31/2018 9:19 AM COUNTER ROLLER Height 24.31 03/31/2018 9:19 AM COUNTER ROLLER Body Mass Index documented in this encounter Progress Notes * Dejon Wagner MD - 03/31/2018 9:30 AM COUNTER ROLLER Date of Service: 03/31/2018 Subjective: Tara Castillo [...] Vale MD Urology PGY 1 Pager - [phone] I have examined the patient's past medical, [...] Staff name: Dejon Wagner MD Date: 04/02/2018 TER ROLLER documented in this encounter Plan of Treatment Not on filedocumented as of this encounter Results * CT GUIDE FOR RF ABLATION PERC (04/18/2018 3:30 PM COUNTER ROLLER) Specimen Impressions Performed At 1.Successful 18-gauge core [...] Interface, Radiant Results - 04/19/2018 1:[address]-GUIDED RIGHT RENAL MASS BIOPSY AND SUBSEQUENT [...] on 04/18/2018 3:58 PM. Performing Organization Address City/[facility]/Zipcode Phone Number [facility] RESULTS * PROTIME INR (PT) (03/31/2018 10:35 AM COUNTER ROLLER) Pathologist [facility] INR 1.0 0.8 - 1.2 MAIN LAB Specimen Blood Performing Organization Address City/[facility]/Zipcode Phone Number MAIN LAB [address] [place] [address] * CBC (03/31/2018 10:35 AM COUNTER ROLLER) White Blood 4.2 (L) 4.5 - 11.0 K/UL [facility] Cells RBC 4.43 4.0 - 5.0 [...] [facility] Specimen Blood Performing Organization Address [facility] Phone Number [facility] [address] [phone] * COMPREHENSIVE METABOLIC PANEL (03/31/2018 10:35 AM COUNTER ROLLER) Sodium 138 137 - 147 MMOL/L [facility] [...] Non >60 >60 mL/min [facility] Comment: Samoan The eGFR is not validated for use in drug dosing adjustments.Continue to use estimated creatinine clearance per dosing reference text.Please contact the Clinical Pharmacist for questions. eGFR >60 >60 mL/min [facility] Samoan Comment: The eGFR is not validated for use in drug dosing adjustments.Continue to use estimated creatinine clearance per dosing reference text.Please contact the Clinical Pharmacist for questions. Specimen Blood Performing Organization Address [facility] Phone Number [facility] [address] [phone] documented in this encounter Visit Diagnoses Diagnosis Malignant neoplasm of right kidney (HCC) - Primary * Assessment & Plan Note - Shahab Vale MD - 03/31/2018 11:10 AM COUNTER ROLLER Associated Problem(s): Malignant neoplasm of right kidney [...] biopsy and ablation of right renal mass TER ROLLER documented in this encounter
--- OUTSIDE RECORDS SUMMARY | 2018-09-27 10:34 | XMS REPORT | Encounter Summary ---
Author Author [facility] Organization [facility] Address Unknown Phone Unavailable Care Team Providers Care Wheel Grinder Name Role Phone No Pcp, Na PCP Unavailable Reason for Visit * Reason Comments Navigation Assessment Encounter Details Care Team Description Date Type Department Dejon Wagner MD [address] [place] [address] [phone] Navigation Assessment 03/30/[address] [phone] Social History Date Tobacco Use Types Packs/Day Years Used Never Assessed Sex Assigned at Date Recorded Not on file Industry Job Start Date Occupation Not on file Not on file Not on file Travel End Travel History Travel Start No recent travel history available. documented as of this encounter Miscellaneous Notes * Telephone Encounter - Elisa Robles RN - 03/30/2018 4:56 PM FUND DIRECTOR Navigation Intake Assessment Document Patient Name: Tara Castillo : 1945 Insurance: [facility] Appointment Info: Future Appointments Date Time Provider Department Center 03/31/2018 9:30 AM Dejon Wagner MD CCC2 [facility] Exam 03/31/2018 11:00 AM [id number] [...] understanding. Schedulin g letter sent to patient. DIRECTOR documented in this encounter Plan of Treatment Not on filedocumented as of this encounter Visit Diagnoses Not on filedocumented in this encounter
[2018-09-27] MEDS ORDERED: GLYCOPYRROLATE 0.2 MG/ML (ROBINUL) 2 ML VIAL ONE (11:27)
[2018-09-27] MEDS ORDERED: ONDANSETRON 4 MG/2 ML (SDV) Z0FRAN ONE (11:27)
[2018-09-27] MEDS ORDERED: ROCURONIUM 10 MG/ML 5 ML SYRINGE IV ONE (11:27)
[2018-09-27] MEDS ORDERED: LIDOCAINE PF 2% 5 ML (XYLOCAINE) VIAL ONE (11:27)
[2018-09-27] MEDS ORDERED: DEXAMETHASONE 10 MG/ML (DECADRON) 1 ML VIAL ONE (11:27)
[2018-09-27] MEDS ORDERED: SEVOFLURANE (ULTANE) 15 ML INHAL SOLN ONE (11:27)
[2018-09-27] MEDS ORDERED: NEOSTIGMINE 3 MG/3 ML VIAL ONE (11:27)
[2018-09-27] MEDS ORDERED: proPOfol 200 MG/20 ML (DIPRIVAN) VIAL IV ONE (11:27)
[2018-09-27] MEDS ORDERED: MIDAZOLAM 2 MG/2 ML (VERSED) VIAL ONE (11:28)
[2018-09-27] MEDS ORDERED: fentaNYL INJECTION 100 MCG/2 ML AMP ONE (11:28)
[2018-09-27] MEDS ORDERED: HYDROmorphone 2 MG/ML VIAL (DILAUDID) ONE (12:36)
[2018-09-27] MEDS ORDERED: HYDROmorphone 2 MG/ML VIAL (DILAUDID) IV ONE (14:15)
[2018-09-27] MEDS ORDERED: ONDANSETRON 4 MG/2 ML (SDV) Z0FRAN IVP PRN (14:15)
[2018-09-27] MEDS ORDERED: ROPIVACAINE 5MG/ML 30ML VIAL ONE (14:18)
--- NOTE | 2018-09-27 15:10 | NUR ---
PATIENT BROUGHT TO ROOM BY CARTON FORMING MACHINE HELPER. PATIENT CURRENTLY SEDATED, ON 3L NASAL CANNULA. NO COMPLAINTS OF PAIN AT THIS TIME. DRESSING INSPECTED AND ASSESSMENT PERFORMED.
--- NOTE | 2018-09-27 17:04 | Progress Note-Post Operative ---
Post-Operative Progess Note Surgeon (s)/Hoop Maker Helper Machine (s) Surgeon MARICHUY GILL DO Hoop Maker Helper Machine: Dr. Gerard Pre-Operative Diagnosis adenocarcinoma of colon Post-Operative Diagnosis same Procedure & Operative Findings Date of Procedure 09/27/18 Procedure Performed/Findings subtotal colectomy and lysis of adhesions 1 hr. Anesthesia Type gen Estimated Blood Loss Estimated blood loss (mL): min Specimens/Packing Specimens Removed colon MARICHUY GILL DO Sep 27, 2018 17:04
[2018-09-27] MEDS ORDERED: morphine INJ 10 MG/ML 1ML (SYR OR VIAL) IVP PRN (17:15)
[2018-09-27] MEDS ORDERED: morphine INJ 4 MG/ML 1 ML (VIAL/SYRINGE) IV PRN (17:30)
[2018-09-27] MEDS: LACTATED RINGERS 1,000 ML IV SCH (17:36)
[2018-09-27] MEDS: HYDROcodone/APAP 5 MG/325 MG (LORTAB) TAB PO PRN (18:51)
[2018-09-27] MEDS: ceFAZolin INJECTION 1,000 MG in WATER (STERILE) FOR INJECTION 10 ML IV SCH (20:14)
[2018-09-27] MEDS: metroNIDAZOLE 500MG/100ML IVPB 100 ML IV SCH (20:15)
[2018-09-27] MEDS ORDERED: RT-ALBUTEROL SULF 2.5 MG/3 ML PRE-MIX VIAL INH PRN (21:45)
[2018-09-28] MEDS: HYDROcodone/APAP 5 MG/325 MG (LORTAB) TAB PO PRN ×4 (00:06→21:07)
[2018-09-28 00:10] VITALS: BP 119/64
[2018-09-28] MEDS: LACTATED RINGERS 1,000 ML IV SCH ×3 (00:51→16:59)
[2018-09-28] MEDS: ONDANSETRON 4 MG/2 ML (SDV) Z0FRAN IVP PRN ×4 (01:26→21:07)
[2018-09-28 04:04] VITALS: BP 131/70
[2018-09-28] MEDS: ceFAZolin INJECTION 1,000 MG in WATER (STERILE) FOR INJECTION 10 ML IV SCH (04:25)
[2018-09-28] MEDS: metroNIDAZOLE 500MG/100ML IVPB 100 ML IV SCH (04:25)
[2018-09-28 07:07] LABS: ALANINE AMINOTRANSFERASE 14 U/L (0-55); ALBUMIN 3.4 GM/DL (3.2-4.5); ALKALINE PHOSPHATASE 47 U/L (40-136); BILIRUBIN,TOTAL 0.3 MG/DL (0.1-1.0); BUN/CREATININE RATIO 15; CALCIUM 8.6 MG/DL (8.5-10.1); CARBON DIOXIDE 22 MMOL/L (21-32); CHLORIDE 110 MMOL/L (98-107); CREATININE SERUM 0.79 MG/DL (0.60-1.30); GFR ESTIMATED > 60; GLUCOSE 107 MG/DL (70-105); MAGNESIUM 1.6 MG/DL (1.8-2.4); POTASSIUM 4.3 MMOL/L (3.6-5.0); SODIUM 139 MMOL/L (135-145); TOTAL PROTEIN 5.5 GM/DL (6.4-8.2)
--- NOTE | 2018-09-28 07:21 | Anesthesia-General Post-Op ---
General Patient Condition Mental Status/LOC: Same as Preop Cardiovascular: Satisfactory Nausea/Vomiting: Absent Respiratory: Satisfactory Pain: Controlled Complications: Absent Post Op Complications Complications None Follow Up Care/Instructions Patient Instructions None needed. Anesthesia/Patient Condition Patient Condition Patient is doing well, no complaints, stable vital signs, no apparent adverse anesthesia problems. No complications reported per nursing. ESPERANZA DELONG CRNA Sep 28, 2018 07:20
[2018-09-28 08:00] VITALS: BP 136/69
--- NOTE | 2018-09-28 08:45 | NUR ---
HYDROCODONE 5 PO FOR HEADACHE.
--- NOTE | 2018-09-28 08:55 | NUR ---
ZOFRAN 4MG IV FOR NAUSEA.
--- NOTE | 2018-09-28 09:54 | Consultation - Hospitalist ---
HPI History of Present Illness: HPI/Chief Complaint CC: Medical management following Hemicolectomy due to recurring colon CA x3 HPI: This is a 73yoWF who only sees Dr. Cutler oncology, Dr. Gabriel, and Dr. Gerard for colon CA who presents after an uncomplicated hemicolectomy due to colon CA for the past three episodes. She at this current time is having post operative ileus and post operative abdominal pain but denies any nausea and she is already going on a little bit of a walk. Pt is tolerating the pain well and overall her labs remain stable, and vitals remain stable too. I explain my role in monitoring cardiology and pulmonology issues. Source: patient Exam Limitations: no limitations Date Seen 09/28/18 Attending Physician Yehuda Gabriel DO PCP No,Local Physician Referring Physician Date of Admission Sep 27, 2018 at 09:38 Home Medications & Allergies Home Medications Reviewed patient Home Medication Reconciliation performed by pharmacy medication reconciliations organic extractions technician and/or nursing. Patients Allergies have been reviewed. Allergies Allergies Coded Allergies No Known Drug Allergies (Unverified06/17/16) Past Qlpclgy-Hbeezs-Xdgfpy Hx Past Med/Social Hx: Reviewed Nursing Past Med/Soc Hx, Reviewed and Corrections made Patient Social History Alcohol Use: Denies Use Recreational Drug Use: No Smoking Status: Former Smoker Former Smoker, Quit: Jun 17, 1977 Type Used: Cigarettes 2nd Hand Smoke Exposure: No Recent Foreign Travel: No Contact w/other who traveled: No Recent Hopitalizations: No Recent Infectious Disease Expo: No Immunizations Up To Date Tetanus Booster (TDap): Unknown Pediatric: No Date of Pneumonia Vaccine: Jan 09, 2016 Date of Influenza Vaccine: Jan 28, 2018 Seasonal Allergies Seasonal Allergies: No Past Medical History Surgeries: Abdominal, Adenoidectomy, Tonsillectomy Currently Using CPAP: No Currently Using BIPAP: No Reproductive: No Sexually Transmitted Disease: No HIV/AIDS: No Loss of Vision: Denies Hearing Impairment: Denies Cancer: Colon, Kidney Did You Recieve Any Treatments: Yes What Type of Treatment Did You: Chemotherapy, Surgical Intervention History of Blood Disorders: No Adverse Reaction to Blood Shah: No (N/A) Family History Hypertension 19 MOTHER No Pertinent Family Hx Review of Systems Constitutional: see HPI EENTM: no symptoms reported Cardiovascular: no symptoms reported Gastrointestinal: abdominal pain (RLQ) Genitourinary: no symptoms reported Musculoskeletal: no symptoms reported Skin: no symptoms reported Psychiatric/Neurological: No Symptoms Reported All Other Systems Reviewed Negative Unless Noted: Yes Physical Exam Physical Exam Vital Signs Vital Signs - First Documented 09/27/18 09:40 Temp 99.0 Pulse 64 Resp 16 B/P (MAP) 118/69 (85) Pulse Ox 94 O2 Delivery Room Air Capillary Refill : Less Than 3 Seconds Height, Weight, BMI Height: 5'10.00" Weight: 168lbs. 0.0oz. 76.991069ho; 24.1 BMI Method:Stated General Appearance: WD/WN, Anxious, Chronically ill, Mild Distress, Thin Eyes: Bilateral Eye Normal Inspection, Bilateral Eye PERRL HEENT: PERRL/EOMI, Normal ENT Inspection, Pharynx Normal Neck: Full Range of Motion, Normal Inspection, Non Tender, Supple, Carotid Bruit Respiratory: Chest Non Tender, Lungs Clear, Normal Breath Sounds, No Accessory Muscle Use, No Respiratory Distress Cardiovascular: Regular Rate, Rhythm, No Edema, No Gallop, No JVD, No Murmur, Normal Peripheral Pulses Gastrointestinal: No Organomegaly, No Pulsatile Mass, Abnormal Bowel Sounds Back: Normal Inspection, No CVA Tenderness, No Vertebral Tenderness Extremity: Normal Capillary Refill, Normal Inspection, Normal Range of Motion, Non Tender, No Calf Tenderness, No Pedal Edema Neurologic/Psychiatric: Alert, Oriented x3, No Motor/Sensory Deficits, physician relations representative II- XII Norm as Tested, Depressed Affect Skin: Normal Color, Warm/Dry Lymphatic: No Adenopathy Results Results/Procedures Labs Laboratory Tests 09/28/18 05:55 Patient resulted labs reviewed. Assessment/Plan Assessment and Plan Assess & Plan/Chief Complaint Assessment: s/p hemicolectomy Colon cancer x 3 Post op ileus Plan: Monitor pain IVF Supportive care Ambulate NPO Diagnosis/Problems Diagnosis/Problems (1) S/P colectomy Status: Acute (2) Postoperative ileus Status: Acute (3) Colon cancer Status: Chronic Qualifiers: Colon location: unspecified part of colon Qualified Codes: C18.9 - Malignant neoplasm of colon, unspecified Clinical Quality Measures DVT/VTE Risk/Contraindication: Risk Factor Score Per Nursin RFS Level Per Nursing on Admit: 4+=Very High MARK OLIVEROS DO Sep 28, 2018 09:54
--- NOTE | 2018-09-28 10:00 | NUR ---
AMBULATED WITH ASSIST AND UP IN CHAIR. TOLERATING CL LIQ PO.
[2018-09-28 12:00] VITALS: BP 148/64
[2018-09-28 16:15] VITALS: BP 149/68
--- NOTE | 2018-09-28 17:04 | NUR ---
HYDROCODONE 5 PO AND ZOFRAN 4MG IV FOR PAIN AND NAUSEA.
[2018-09-28 19:22] VITALS: BP 148/66
--- NOTE | 2018-09-28 21:47 | Progress Note - Surgery ---
Subjective Date Seen by a Provider: Sep 28, 2018 Time Seen by a Provider: 07:25 Subjective/Events-last exam Patient is using IS. Having some pain. denies n/v fever sweats chills shortness of breath or chest pain. not having any flatus or bm yet. Objective Exam Vital Signs Date Time Temp Pulse Resp B/P (MAP) Pulse Ox O2 Delivery O2 Flow Rate FiO2 09/28/18 20:30 Nasal Cannula 3.00 09/28/18 19:42 Nasal Cannula 3.00 09/28/18 19:22 98.1 77 18 148/66 (93) 100 Nasal Cannula 3.00 09/28/18 16:15 99.2 63 16 149/68 (95) 100 Nasal Cannula 3.00 09/28/18 12:00 99.1 57 18 148/64 (92) 100 Nasal Cannula 3.00 09/28/18 08:00 100 Nasal Cannula 3.00 09/28/18 08:00 98.2 62 18 136/69 (91) 100 Nasal Cannula 3.00 09/28/18 07:33 95 Nasal Cannula 3.00 09/28/18 04:04 97.1 62 18 131/70 (90) 99 Nasal Cannula 3.00 09/28/18 00:10 98.4 71 16 119/64 (82) 99 Nasal Cannula 3.00 I & O 09/28/18 07:00 Intake Total 2630 ml Output Total 950 ml Balance 1680 ml Capillary Refill : Less Than 3 Seconds General Appearance: WD/WN, Anxious, Chronically ill, Mild Distress HEENT: PERRL/EOMI, Normal ENT Inspection, Pharynx Normal Neck: Full Range of Motion, Normal Inspection, Non Tender Respiratory: Chest Non Tender, No Accessory Muscle Use, No Respiratory Distress Cardiovascular: Regular Rate, Rhythm, Normal Peripheral Pulses Gastrointestinal: soft (incisional tenderness) Extremity: Normal Capillary Refill, Normal Inspection, Normal Range of Motion, Non Tender, No Calf Tenderness, No Pedal Edema Neurologic/Psychiatric: Alert, Oriented x3, No Motor/Sensory Deficits, roll contour grinder II- XII Norm as Tested, Depressed Affect Skin: Normal Color, Warm/Dry Lymphatic: No Adenopathy Results Lab Laboratory Tests 09/28/18 05:55: White Blood Count 10.3, Red Blood Count 3.86L, Hemoglobin 11.9, Hematocrit 35, Mean Corpuscular Volume 91, Mean Corpuscular Hemoglobin 31, Mean Corpuscular Hemoglobin Concent 34, Red Cell Distribution Width 12.1, Platelet Count 166, Mean Platelet Volume 9.9, Neutrophils (%) (Auto) 86H, Lymphocytes (%) (Auto) 5L, Monocytes (%) (Auto) 9, Eosinophils (%) (Auto) 0, Basophils (%) (Auto) 0, Neutrophils # (Auto) 8.8H, Lymphocytes # (Auto) 0.5L, Monocytes # (Auto) 0.9, Eosinophils # (Auto) 0.0, Basophils # (Auto) 0.0, Sodium Level 139, Potassium Level 4.3, Chloride Level 110H, Carbon Dioxide Level 22, Anion Gap 7, Blood Urea Nitrogen 12, Creatinine 0.79, Estimat Glomerular Filtration Rate > 60, BUN/Creatinine Ratio 15, Glucose Level 107H, Calcium Level 8.6, Corrected Calcium 9.1, Magnesium Level 1.6L, Total Bilirubin 0.3, Aspartate Amino Transf (AST/SGOT) 21, Alanine Aminotransferase (ALT/SGPT) 14, Alkaline Phosphatase 47, Total Protein 5.5L, Albumin 3.4 Assessment/Plan Assessment/Plan Assessment/Plan postop subtotal colectomy pain control increase activity await bowel function clears Clinical Quality Measures DVT/VTE Risk/Contraindication: Risk Factor Score Per Nursin RFS Level Per Nursing on Admit: 4+=Very High MARICHUY GILL DO Sep 28, 2018 21:47
[2018-09-29] VITALS (7 sets, daily range): BP systolic 132–156; BP diastolic 63–68
[2018-09-29] MEDS: HYDROcodone/APAP 5 MG/325 MG (LORTAB) TAB PO PRN ×6 (01:07→21:50)
[2018-09-29] MEDS: ONDANSETRON 4 MG/2 ML (SDV) Z0FRAN IVP PRN ×6 (01:07→21:49)
[2018-09-29] MEDS: LACTATED RINGERS 1,000 ML IV SCH ×3 (01:08→17:38)
[2018-09-29 04:51] LABS: HEMOGLOBIN 11.8 G/DL (11.5-16.0); MEAN PLATELET VOLUME 9.4 FL (7.4-10.4); RED CELL DISTRIBUTION WIDTH 12.2 % (10.0-14.5); WHITE BLOOD COUNT 8.7 10^3/uL (4.3-11.0)
[2018-09-29 05:09] LABS: BUN/CREATININE RATIO 11; CALCIUM 8.9 MG/DL (8.5-10.1); CARBON DIOXIDE 25 MMOL/L (21-32); CHLORIDE 105 MMOL/L (98-107); CREATININE SERUM 0.72 MG/DL (0.60-1.30); GFR ESTIMATED > 60; GLUCOSE 108 MG/DL (70-105); POTASSIUM 4.2 MMOL/L (3.6-5.0); SODIUM 139 MMOL/L (135-145)
--- NOTE | 2018-09-29 09:05 | OPERATIVE REPORT ---
DATE OF SERVICE: 09/27/2018 PREOPERATIVE DIAGNOSIS: Adenocarcinoma of colon. POSTOPERATIVE DIAGNOSIS: Adenocarcinoma of colon. PROCEDURE: Double colectomy and lysis of adhesions 1 hour. SURGEON: Yehuda Gabriel DO SCOUT SNIPER: Dr. Gerard, assisted in retraction, dissection and closure. ANESTHESIA: General. ESTIMATED BLOOD LOSS: Minimal. COMPLICATIONS: None. INDICATIONS: The patient is a 73-year-old female with previous colectomy x2 for colon cancer. She was found to have another colon cancer. She was discussed risks and benefits of procedure and wished to proceed with procedure. Consent was signed in the chart. DESCRIPTION OF PROCEDURE: The patient was taken to the operating suite. She was prepped and draped in sterile fashion. A timeout was performed. Midline incision was made for a hand port; however, once entered in the abdomen multiple adhesions were present, making it difficult to get in. These were continued to be taken down, but due to the number of adhesions, it was decided to go ahead and proceed with open procedure. Adhesions were continued to be taken down with both cautery and Metzenbaums. Small bowel was continued to be ran lysing all adhesions, to continue to mobilize or free up the contents of the abdomen. Over one hour of lysis of adhesions were performed in the procedure. Once the adhesions were freed, the colon was able to be located where the previous ileocolonic anastomosis was present. The tattoo was visualized more towards the transverse/descending portion of the colon. An Endo-COMFORT stapler was fired across the ileum just proximal to the ileocolonic anastomosis. LigaSure was then used to divide the mesentery from the colon. A COMFORT-75 stapler was then fired across the distal portion of the colon proximally to the level of the pelvis. The LigaSure was used to divide the mesentery from the colon removing the specimen. The abdomen was then irrigated with copious amounts of irrigation and suction. A rvie-ub-wyrl ileocolonic anastomosis was created with the anastomosis appearing to be viable. A crotch stitch was placed with a 3-0 silk suture at the anastomosis. Hemostasis was achieved. The abdomen was then irrigated with copious amounts of irrigation again. Abdomen was inspected only noting a small mass on the right lobe of the liver, which had recently been biopsied. No other pathology noted. The fascial defect was then closed using 1-0 looped PDS. The wound was irrigated with copious amounts of irrigation and the skin was closed with albaro. The patient tolerated the procedure well without any complications. She was taken to recovery room in stable condition. Job ID: [id number] DocumentID: [id number] Dictated Date: 09/28/2018 22:22:37 Director Of Strategic Marketing Date: 09/29/2018 03:47:01 Dictated By: DO CARRIE STANTON
--- NOTE | 2018-09-29 10:06 | Progress Note - Hospitalist ---
Subjective HPI/CC On Admission Date Seen by Provider: Sep 29, 2018 Time Seen by Provider: 10:00 CC: Medical management following Hemicolectomy due to recurring colon CA x3 HPI: This is a 73yoWF who only sees Dr. Cutler oncology, Dr. Gabriel, and Dr. Gerard for colon CA who presents after an uncomplicated hemicolectomy due to colon CA for the past three episodes. She at this current time is having post operative ileus and post operative abdominal pain but denies any nausea and she is already going on a little bit of a walk. Pt is tolerating the pain well and overall her labs remain stable, and vitals remain stable too. I explain my role in monitoring cardiology and pulmonology issues. Subjective/Events-last exam Patient doing much better Sitting up in chair Abdominal pain is painful but managed better with pain medication Ambulating around Passing gas On clear liquid diet Vitals remained stable Review of Systems General: Fatigue Gastrointestinal: Abdominal Pain Objective Exam Vital Signs Vital Signs Date Time Temp Pulse Resp B/P (MAP) Pulse Ox O2 Delivery O2 Flow Rate FiO2 09/29/18 10:56 99 Nasal Cannula 3.00 09/29/18 08:00 98.5 70 18 141/66 (91) Capillary Refill : Less Than 3 Seconds General Appearance: No Apparent Distress, WD/WN, Anxious, Chronically ill HEENT: PERRL/EOMI, Normal ENT Inspection, Pharynx Normal Neck: Full Range of Motion, Normal Inspection, Non Tender Respiratory: Chest Non Tender, No Accessory Muscle Use, No Respiratory Distress Cardiovascular: Regular Rate, Rhythm, Normal Peripheral Pulses Gastrointestinal: No Organomegaly, No Pulsatile Mass, Abnormal Bowel Sounds Back: Normal Inspection, No CVA Tenderness, No Vertebral Tenderness Extremity: Normal Capillary Refill, Normal Inspection, Normal Range of Motion, Non Tender, No Calf Tenderness, No Pedal Edema Neurologic/Psychiatric: Alert, Oriented x3, No Motor/Sensory Deficits, bilingual manager II- XII Norm as Tested, Depressed Affect Skin: Normal Color, Warm/Dry Lymphatic: No Adenopathy Results/Procedures Lab Laboratory Tests 09/29/18 04:40 Patient resulted labs reviewed. Assessment/Plan Assessment and Plan Assess & Plan/Chief Complaint Assessment: s/p hemicolectomy Colon cancer x 3 Post op ileus Plan: Monitor pain IVF Supportive care Ambulate CLD Diagnosis/Problems Diagnosis/Problems (1) S/P colectomy Status: Acute (2) Postoperative ileus Status: Acute (3) Colon cancer Status: Chronic Qualifiers: Colon location: unspecified part of colon Qualified Codes: C18.9 - Malignant neoplasm of colon, unspecified Clinical Quality Measures DVT/VTE Risk/Contraindication: Risk Factor Score Per Nursin RFS Level Per Nursing on Admit: 4+=Very High MARK OLIVEROS DO Sep 29, 2018 10:06
--- NOTE | 2018-09-29 10:08 | Physical Therapy Evaluation ---
PT Evaluation-General Medical Diagnosis Admission Date Sep 27, 2018 at 09:38 Medical Diagnosis: colon carcinoma Onset Date: Sep 27, 2018 Therapy Diagnosis Therapy Diagnosis: debility Height/Weight Height (Feet): 5 Height (Inches): 10.00 Weight (Pounds): 168 Weight (Ounces): 0.0 Precautions Precautions/Isolations: Standard Precautions Referral Physician: Harvey Reason for Referral: Evaluation/Treatment Medical History Current History s/p colon resection Reviewed History: Yes Social History Home: Single Level Current Living Status: Alone Entry Into Home: Ramp Prior/Core FIM Prior Level of Function Therapy Code Descriptions/Definitions Functional Hardy Measure: 0=Not Assessed/NA 4=Minimal Assistance 1=Total Assistance 5=Supervision or Setup 2=Maximal Assistance 6=Modified Hardy 3=Moderate Assistance 7=Complete Hardy Therapy Quality Codes: 6 Independent with activity with or without an assistive device 5 Patient requires set up or clean up by helper. Patient completes activity by themselves 4 Supervision or touching assist (CGA). [place] provide cues , steadying assist 3 The helper provides less than half the effort to complete the activity 2 The helper provides more than half the effort to complete the activity 1 Dependent. The helper does all the effort to complete an activity 7 Patient refused to complete or attempt activity 9 The patient did not perform the activity before the current illness or injury 88 Not attempted due to Medical conditions or safety concerns Functional Abilities and Goals: Independent: Patient completed the activities by him/herself, with or without an assistive device, with no assistance from a helper. Needed Some Help: Patient needed partial assistance from another person to complete activities. Dependent: A helper completed the activities for the patient. Unknown: Not Applicable: Bed Mobility: 7 Transfers (B,C,W/C) (FIM): 7 Gait: 7 Indoor Mobility (Ambulation): Independent Prior Devices Use: None PT Evaluation-Current Subjective Patient reports she has been up with nursing x 3 to ambulate in hallway. Agrees to PT. Pain Numeric Pain Scale: 5-Moderate Pain Location: Lower Location Body Site: Abdomen Pain Description: Acute Objective Patient Orientation: Normal For Age Problem Solving: Good Attachments: Oxygen, Moody Catheter, IV ROM/Strength ROM Lower Extremities bilateral LE WFL Strength Lower Extremities 4/5 grossly bilaterally Integumentary/Posture Integumentary refer to nursing notes Bladder Incontinence: Mooyd Cath Posture WFL Neuromuscular (Tone, Coordination, Reflexes) grossly intact Sensory Vision: Functional Hearing: Functional Sensation Right Lower Extremit: Intact Sensation Left Lower Extremity: Intact Transfers Therapy Code Descriptions/Definitions Functional Hardy Measure: 0=Not Assessed/NA 4=Minimal Assistance 1=Total Assistance 5=Supervision or Setup 2=Maximal Assistance 6=Modified Hardy 3=Moderate Assistance 7=Complete Hardy Transfers (B, C, W/C) (FIM): 6 Scootin Rollin Supine to/from Sit: 6 Sit to/from Stand: 6 Gait Mode of Locomotion: Walk Anticipated Mode of Locomotion: Walk Gait (FIM): 6 Distance (FIM): 3=150 ft Distance: 325' Gait Level of Assist: 6 Gait Assistive Device: FWW Comments/Gait Description safe and functional with no deviation Balance Sitting Static: Normal Sitting Dynamic: Normal Standing Static: Normal Standing Dynamic: Normal Assessment/Needs 73 y.o. female, is currently at [facility] with all gross motor skills safely. Patient, when not attached to IV, can ambulate PRN in hallway by self. If not, patient to ambulate with nursing PRN. No skilled PT indicated at this time. Rehab Potential: Fair PT Plan Treatment/Plan Treatment Plan: Discontinue PT, goals met Treatment Plan: Other Treatment Duration: Sep 29, 2018 Frequency: 1 time per week Estimated Hrs Per Day: .25 hour per day Patient and/or Family Agrees t: Yes Time/GCodes Time In: 845 Time Out: 900 Total Billed Treatment Time: 15 Total Billed Treatment 1 visit EVMod 15 min SHANTELL BURGESS PT Sep 29, 2018 10:08
[2018-09-29 10:40] LABS: WHITE BLOOD COUNT 10.3 10^3/uL (4.3-11.0)
[2018-09-29 10:41] LABS: BAND NEUTROPHILS 1 %; BASOPHILS % (AUTO) 0 % (0-10); BASOPHILS % (MANUAL) 0 %; EOSINOPHILS % (AUTO) 0 % (0-10); EOSINOPHILS % (MANUAL) 0 %; HEMATOCRIT 35 % (35-52); HEMOGLOBIN 11.9 G/DL (11.5-16.0); LYMPHOCYTES # (AUTO) 0.5 X 10^3 (1.0-4.0); LYMPHOCYTES % (AUTO) 5 % (12-44); LYMPHOCYTES % (MANUAL) 5 %; MEAN CORPUSCULAR HEMOGLOBIN 31 PG (25-34); MEAN CORPUSCULAR HGB CONC 34 G/DL (32-36); MEAN CORPUSCULAR VOLUME 91 FL (80-99); MEAN PLATELET VOLUME 9.9 FL (7.4-10.4); MONOCYTES # (AUTO) 0.9 X 10^3 (0.0-1.0); MONOCYTES % (AUTO) 9 % (0-12); MONOCYTES % (MANUAL) 7 %; NEUTROPHILS # (AUTO) 8.8 X 10^3 (1.8-7.8); NEUTROPHILS % (AUTO) 86 % (42-75); NEUTROPHILS % (MANUAL) 87 %; PLATELET COUNT 166 10^3/uL (130-400); RED CELL DISTRIBUTION WIDTH 12.1 % (10.0-14.5)
[2018-09-29 10:42] LABS: ELLIPT/OVALOCYTES SLIGHT; PLATELET CLUMPS SLIGHT; POIKILOCYTOSIS SLIGHT; TOXIC GRANULATION/VACUOLAZATIO 1+
[2018-09-29 10:43] LABS: ROULEAUX SLIGHT
--- NOTE | 2018-09-29 15:04 | Progress Note - Surgery ---
Subjective Date Seen by a Provider: Sep 29, 2018 Time Seen by a Provider: 08:23 Subjective/Events-last exam patient states she's feeling better today. She still having pain but it's getting better under control. Patient is passing flatus. She is using incentive spirometer. She has no new complaints. She denies any nausea vomiting fever sweats chills shortness of breath or chest pain. Objective Exam Vital Signs Date Time Temp Pulse Resp B/P (MAP) Pulse Ox O2 Delivery O2 Flow Rate FiO2 09/29/18 12:00 99.0 67 18 156/68 (97) 99 Nasal Cannula 3.00 09/29/18 10:56 99 Nasal Cannula 3.00 09/29/18 08:00 98.5 70 18 141/66 (91) 99 Nasal Cannula 3.00 09/29/18 04:00 98.8 68 18 142/65 (90) 99 Nasal Cannula 3.00 09/29/18 00:00 98.5 69 20 132/63 (86) 98 Nasal Cannula 3.00 09/28/18 20:30 Nasal Cannula 3.00 09/28/18 19:42 Nasal Cannula 3.00 09/28/18 19:22 98.1 77 18 148/66 (93) 100 Nasal Cannula 3.00 09/28/18 16:15 99.2 63 16 149/68 (95) 100 Nasal Cannula 3.00 I & O 09/29/18 06:59 Intake Total 3190 ml Output Total 2600 ml Balance 590 ml Capillary Refill : Less Than 3 Seconds General Appearance: No Apparent Distress, WD/WN, Chronically ill HEENT: PERRL/EOMI, Normal ENT Inspection, Pharynx Normal Neck: Full Range of Motion, Normal Inspection, Non Tender Respiratory: Chest Non Tender, No Accessory Muscle Use, No Respiratory Distress Cardiovascular: Regular Rate, Rhythm, Normal Peripheral Pulses Gastrointestinal: soft (incisional tenderness), tenderness (incisional c/d/i no erythema) Extremity: Normal Capillary Refill, Normal Inspection, Normal Range of Motion, Non Tender, No Calf Tenderness, No Pedal Edema Neurologic/Psychiatric: Alert, Oriented x3, No Motor/Sensory Deficits, chief librarian circulation department II- XII Norm as Tested, Depressed Affect Skin: Normal Color, Warm/Dry Lymphatic: No Adenopathy Results Lab Laboratory Tests 09/29/18 04:40: White Blood Count 8.7, Red Blood Count 3.82L, Hemoglobin 11.8, Hematocrit 35, Mean Corpuscular Volume 91, Mean Corpuscular Hemoglobin 31, Mean Corpuscular Hemoglobin Concent 34, Red Cell Distribution Width 12.2, Platelet Count 136, Mean Platelet Volume 9.4, Sodium Level 139, Potassium Level 4.2, Chloride Level 105, Carbon Dioxide Level 25, Anion Gap 9, Blood Urea Nitrogen 8, Creatinine 0.72, Estimat Glomerular Filtration Rate > 60, BUN/Creatinine Ratio 11, Glucose Level 108H, Calcium Level 8.9, Magnesium Level 2.0 Assessment/Plan Assessment/Plan Assessment/Plan postop subtotal colectomy pain control increase activity passing flatus advance dys 2 diet [facility] Clinical Quality Measures DVT/VTE Risk/Contraindication: Risk Factor Score Per Nursin RFS Level Per Nursing on Admit: 4+=Very High MARICHUY GILL DO Sep 29, 2018 15:04
[2018-09-30] MEDS: LACTATED RINGERS 1,000 ML IV SCH ×3 (01:35→17:54)
[2018-09-30] MEDS: HYDROcodone/APAP 5 MG/325 MG (LORTAB) TAB PO PRN ×6 (01:36→23:44)
[2018-09-30] MEDS: ONDANSETRON 4 MG/2 ML (SDV) Z0FRAN IVP PRN ×6 (01:36→23:45)
[2018-09-30 03:55] VITALS: BP 137/66
[2018-09-30 06:48] VITALS: BP 137/66
[2018-09-30 08:00] VITALS: BP 129/66
[2018-09-30 12:00] VITALS: BP 117/56
--- NOTE | 2018-09-30 13:56 | Progress Note - Hospitalist ---
Subjective HPI/CC On Admission Date Seen by Provider: Sep 30, 2018 Time Seen by Provider: 13:30 CC: Medical management following Hemicolectomy due to recurring colon CA x3 HPI: This is a 73yoWF who only sees Dr. Cutler oncology, Dr. Gabriel, and Dr. Gerard for colon CA who presents after an uncomplicated hemicolectomy due to colon CA for the past three episodes. She at this current time is having post operative ileus and post operative abdominal pain but denies any nausea and she is already going on a little bit of a walk. Pt is tolerating the pain well and overall her labs remain stable, and vitals remain stable too. I explain my role in monitoring cardiology and pulmonology issues. Subjective/Events-last exam patient complains of having a lot of l abdominal pain when she passes gas. Andrew es having dysuria. Denies having chest pain or shortness of air. Has been walking with a walker. Review of Systems Gastrointestinal: Nausea, Abdominal Pain Neurological: Weakness Objective Exam Vital Signs Vital Signs Date Time Temp Pulse Resp B/P (MAP) Pulse Ox O2 Delivery O2 Flow Rate FiO2 09/30/18 12:00 98.2 69 16 117/56 (76) 91 Room Air 09/29/18 23:20 3.00 Capillary Refill : Less Than 3 Seconds General Appearance: No Apparent Distress, WD/WN, Chronically ill HEENT: PERRL/EOMI, Normal ENT Inspection, Pharynx Normal Neck: Full Range of Motion, Normal Inspection, Non Tender Respiratory: Chest Non Tender, No Accessory Muscle Use, No Respiratory Distress Cardiovascular: Regular Rate, Rhythm, Normal Peripheral Pulses Gastrointestinal: Normal Bowel Sounds, No Organomegaly, No Pulsatile Mass, Tenderness (postop) Back: Normal Inspection, No CVA Tenderness, No Vertebral Tenderness Extremity: Normal Capillary Refill, Normal Inspection, Normal Range of Motion, Non Tender, No Calf Tenderness, No Pedal Edema Neurologic/Psychiatric: Alert, Oriented x3, No Motor/Sensory Deficits, community aide II- XII Norm as Tested, Depressed Affect Skin: Normal Color, Warm/Dry Lymphatic: No Adenopathy Results/Procedures Lab Patient resulted labs reviewed. Assessment/Plan Assessment and Plan Assess & Plan/Chief Complaint status post hemicolectomy with increased pain will add ibuprofen and continue aggressive ambulation. Clinical Quality Measures DVT/VTE Risk/Contraindication: Risk Factor Score Per Nursin RFS Level Per Nursing on Admit: 4+=Very High ALLI HERRERA MD Sep 30, 2018 13:56
--- NOTE | 2018-09-30 14:49 | Progress Note - Surgery ---
Subjective Date Seen by a Provider: Sep 30, 2018 Time Seen by a Provider: 08:15 Subjective/Events-last exam patient states she's doing okay. She is having some pain when she has flatus. She is tolerating diet. Denies any nausea vomiting fever sweats chills shortness of breath or chest pain. Objective Exam Vital Signs Date Time Temp Pulse Resp B/P (MAP) Pulse Ox O2 Delivery O2 Flow Rate FiO2 09/30/18 12:00 98.2 69 16 117/56 (76) 91 Room Air 09/30/18 08:00 98.6 86 16 129/66 (87) 92 Room Air 09/30/18 08:00 Room Air 09/30/18 06:48 83 90 09/30/18 06:48 90 Room Air 09/30/18 03:55 98.0 84 16 137/66 (89) 90 Room Air 09/29/18 23:20 92 Nasal Cannula 3.00 09/29/18 23:12 99.4 78 18 141/66 (91) 92 Room Air 09/29/18 19:29 Room Air 09/29/18 19:04 98.8 80 20 148/66 (93) 93 Room Air 09/29/18 16:13 98.9 78 18 142/65 (90) 98 Nasal Cannula 1.00 I & O 09/30/18 07:00 Intake Total 3235 ml Output Total 2050 ml Balance 1185 ml Capillary Refill : Less Than 3 Seconds General Appearance: No Apparent Distress, WD/WN, Chronically ill HEENT: PERRL/EOMI, Normal ENT Inspection, Pharynx Normal Neck: Full Range of Motion, Normal Inspection, Non Tender Respiratory: Chest Non Tender, No Accessory Muscle Use, No Respiratory Distress Cardiovascular: Regular Rate, Rhythm, Normal Peripheral Pulses Gastrointestinal: soft (incisional tenderness), tenderness (incisional c/d/i no erythema) Extremity: Normal Capillary Refill, Normal Inspection, Normal Range of Motion, Non Tender, No Calf Tenderness, No Pedal Edema Neurologic/Psychiatric: Alert, Oriented x3, No Motor/Sensory Deficits, 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 Clinical Quality Measures DVT/VTE Risk/Contraindication: Risk Factor Score Per Nursin RFS Level Per Nursing on Admit: 4+=Very High MARICHUY GILL DO Sep 30, 2018 14:49
[2018-09-30] MEDS: IBUPROFEN TABLET 200 MG TAB PO PRN (15:08)
[2018-09-30] MEDS: ENOXAPARIN 40 MG/0.4 ML (LOVENOX) SYR SC SCH (15:08)
[2018-09-30 16:00] VITALS: BP 119/70
[2018-09-30 20:00] VITALS: BP 105/64
[2018-10-01] VITALS: BP 125/72
[2018-10-01] MEDS: LACTATED RINGERS 1,000 ML IV SCH ×3 (02:55→18:29)
[2018-10-01 04:00] VITALS: BP 106/67
[2018-10-01] MEDS: HYDROcodone/APAP 5 MG/325 MG (LORTAB) TAB PO PRN ×4 (05:37→23:31)
[2018-10-01 05:57] LABS: MEAN PLATELET VOLUME 9.5 FL (7.4-10.4); RED CELL DISTRIBUTION WIDTH 12.1 % (10.0-14.5); WHITE BLOOD COUNT 7.3 10^3/uL (4.3-11.0)
[2018-10-01 06:17] LABS: BUN/CREATININE RATIO 7; CALCIUM 8.9 MG/DL (8.5-10.1); CARBON DIOXIDE 27 MMOL/L (21-32); CHLORIDE 103 MMOL/L (98-107); CREATININE SERUM 0.69 MG/DL (0.60-1.30); GFR ESTIMATED > 60; GLUCOSE 100 MG/DL (70-105); MAGNESIUM 1.5 MG/DL (1.8-2.4); POTASSIUM 3.8 MMOL/L (3.6-5.0); SODIUM 138 MMOL/L (135-145)
[2018-10-01 08:00] VITALS: BP 111/59
[2018-10-01] MEDS ORDERED: KETOROLAC 15 MG/ML VIAL IVP ONE (10:45)
--- NOTE | 2018-10-01 11:44 | Progress Note - Hospitalist ---
Subjective HPI/CC On Admission Date Seen by Provider: Oct 01, 2018 Time Seen by Provider: 11:00 CC: Medical management following Hemicolectomy due to recurring colon CA x3 HPI: This is a 73yoWF who only sees Dr. Cutler oncology, Dr. Gabriel, and Dr. Gerard for colon CA who presents after an uncomplicated hemicolectomy due to colon CA for the past three episodes. She at this current time is having post operative ileus and post operative abdominal pain but denies any nausea and she is already going on a little bit of a walk. Pt is tolerating the pain well and overall her labs remain stable, and vitals remain stable too. I explain my role in monitoring cardiology and pulmonology issues. Subjective/Events-last exam patient is feeling better today. She has company and seems much more cheerful. She is passing flatus and having some diarrhea and walking more. She still complains of pain after each passage of stool or gas. Review of Systems Gastrointestinal: Abdominal Pain, Diarrhea Objective Exam Vital Signs Vital Signs Date Time Temp Pulse Resp B/P (MAP) Pulse Ox O2 Delivery O2 Flow Rate FiO2 10/01/18 08:00 91 Room Air 10/01/18 08:00 99.1 77 18 111/59 (76) 09/29/18 23:20 3.00 Capillary Refill : Less Than 3 Seconds General Appearance: No Apparent Distress, WD/WN, Chronically ill HEENT: PERRL/EOMI, Normal ENT Inspection, Pharynx Normal Neck: Full Range of Motion, Normal Inspection, Non Tender Respiratory: Chest Non Tender, No Accessory Muscle Use, No Respiratory Distress Cardiovascular: Regular Rate, Rhythm, Normal Peripheral Pulses Gastrointestinal: Normal Bowel Sounds, No Organomegaly, No Pulsatile Mass, Tenderness (postop) Back: Normal Inspection, No CVA Tenderness, No Vertebral Tenderness Extremity: Normal Capillary Refill, Normal Inspection, Normal Range of Motion, Non Tender, No Calf Tenderness, No Pedal Edema Neurologic/Psychiatric: Alert, Oriented x3, No Motor/Sensory Deficits, 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 Assessment/Plan Assessment and Plan Assess & Plan/Chief Complaint status post hemicolectomy with improved pain. on ibuprofen and aggressive ambulation. diarrhea Weakness consideration could be given to short stay in rehabilitation. 1. Clinical Quality Measures DVT/VTE Risk/Contraindication: Risk Factor Score Per Nursin RFS Level Per Nursing on Admit: 4+=Very High ALLI HERRERA MD Oct 01, 2018 11:44
[2018-10-01 12:00] VITALS: BP 108/65
--- NOTE | 2018-10-01 12:13 | NUR ---
HYDROCODONE 2 TABS GIVEN, ONLY ABLE TO SCAN ONE TAB GIVEN D/T HOW ORDER PLACED IN EMAR. PHARMACY NOTIFIED AND WILL FIX IN EMAR.
[2018-10-01] MEDS: ENOXAPARIN 40 MG/0.4 ML (LOVENOX) SYR SC SCH (15:09)
[2018-10-01] MEDS: IBUPROFEN TABLET 200 MG TAB PO PRN (15:14)
[2018-10-01 16:01] VITALS: BP 123/58
[2018-10-01 20:37] VITALS: BP 106/55
[2018-10-02 00:42] VITALS: BP 125/60
[2018-10-02] MEDS: LACTATED RINGERS 1,000 ML IV SCH ×2 (02:21→10:10)
[2018-10-02 04:00] VITALS: BP 114/73
[2018-10-02 05:22] LABS: HEMOGLOBIN 10.4 G/DL (11.5-16.0); MEAN PLATELET VOLUME 9.3 FL (7.4-10.4); WHITE BLOOD COUNT 6.3 10^3/uL (4.3-11.0)
[2018-10-02 05:51] LABS: BUN/CREATININE RATIO 8; CALCIUM 8.7 MG/DL (8.5-10.1); CARBON DIOXIDE 28 MMOL/L (21-32); CHLORIDE 104 MMOL/L (98-107); CREATININE SERUM 0.63 MG/DL (0.60-1.30); GFR ESTIMATED > 60; GLUCOSE 104 MG/DL (70-105); MAGNESIUM 1.5 MG/DL (1.8-2.4); POTASSIUM 3.9 MMOL/L (3.6-5.0); SODIUM 140 MMOL/L (135-145)
[2018-10-02 08:00] VITALS: BP 124/89
[2018-10-02] MEDS ORDERED: ACHD5005 PO ×2 (12:30)
[2018-10-02] MEDS ORDERED: DOCU-143 PO ×2 (12:30)
--- NOTE | 2018-10-02 12:31 | Discharge Inst-Simple/Standard ---
Discharge Inst-Standard Discharge Medications New, Converted or Re-Newed RX: RX on Chart Patient Instructions/Follow Up Plan of Care/Instructions/FU: 2 weeks Harvey Activity as Tolerated: No Discharge Diet: Soft Diet Other Inst to Patient Follow up Appt: Make appointment for 2 week. Instructions: No lifting greater than 10 pounds. No strenuous activity. May shower in 24 hours, no tub bath or soaking. Use incentive spirometer at home as directed. No Smoking Skin/Wound Care: Keep area clean and dry. Symptoms to Report: Appetite Changes, Extremity Discoloration, Numbness/Tingling, Swelling Increased, Bleeding Excessive, Eyesight Changes, Pain Increased, Urine Color Change, Constipation(Persistent), Fever over 101 degree F, Pain/Pressure in chest, Urinating Difficulty, Cough Up/Vomit Blood, Heart Beat Irreg/Pounding, Pain/Pressure in jaw, Vaginal Bleeding Increase, Cramps in feet or legs, Lightheadedness, Pain/Pressure in shoulder, Diarrhea(Persistent), Memory Changes Suddenly, Questions/Concerns, Weight gain consecutive days, Dizziness/Fainting, Nausea/Vomiting, Shortness of Breath, Weight gain over 2 pounds If questions or concerns contact your physician Or seek help at emergency department. MARICHUY GILL DO Oct 02, 2018 12:31
--- NOTE | 2018-10-02 13:27 | NUR ---
Pt requesting discharge home. She lives alone but states family will be with her during the day and will stay till she retires to bed. Pt states her sister lives in [place] and plans to be with her daily till she feels confident to be home alone. nO other needs identified.
--- NOTE | 2018-10-02 13:54 | NUR ---
Visited with the pt in the hallway as she walked, accompanied by staff. She said she was glad to get out of her room and hopes her strength will return soon. Offered compassionate presence and engaged in rapport building.
--- NOTE | 2018-10-02 14:24 | NUR ---
EDUCATED PT ON LOW FIBER DIET TO FOLLOW FOR 2 WEEKS POSTOP. RECOMMENDED GRADUALLY INCREASE FIBER AFTER THAT TIME. SUGGESTED PT CALL [facility] TO CONTACT ME IF HAVING EXTREME DIARRHEA OR CONSTIPATION FOR FURTHER GUIDANCE. PT HAD NO QUESTIONS.
--- NOTE | 2018-10-03 09:19 | DISCHARGE SUMMARY ---
DATE OF SERVICE: 10/02/2018 ADMITTING PHYSICIAN: Marichuy Gabriel DO CONSULTING PHYSICIAN: Deyanira Garza DO ADMITTING DIAGNOSIS: Colon cancer. DISCHARGE DIAGNOSIS: Colon cancer x3, status post subtotal colectomy, postoperative ileus. HOSPITAL COURSE: The patient is a 73-year-old female, who has her third colon cancer of her colon. She presented for elective subtotal colectomy. The patient understands risks and benefits and on 09/27/2018, the patient underwent subtotal colectomy and lysis of adhesions x1 hour. The patient was started on clear liquids. Provided pain control. She did have slight postoperative ileus. When she regained bowel function, her diet was then advanced. Still having some slight pain, but this continued to improve throughout hospital stay. The patient continued to get stronger through our hospital stay. The patient was tolerating diet. She is having bowel movements. The patient was wanting to go home for discharge on 10/02/2018. The patient has followup appointments signed up and was given discharge instructions. Please see computer for information. Job ID: [id number] DocumentID: [id number] Dictated Date: 10/02/2018 20:36:53 [employer] Date: 10/03/2018 09:18:40 Dictated By: MARICHUY GABRIEL DO
== END 2018-10-02 13:20 | disposition home or self-care (01) | DRG 330 ==
LOC: 4TH 09:38 → SURG 09:39 → 4TH 15:15
PROVIDERS: ADMIT Surgery; ATTEND Surgery
PROC: 0DN80ZZ Release Small Intestine, Open Approach (ICD-10-PCS; 2018-09-27)
PROC: 0DBG0ZZ Excision of Left Large Intestine, Open Approach (ICD-10-PCS; principal; 2018-09-27 12:00)
DX: C78.5 Secondary malignant neoplasm of large intestine and rectum (principal); C77.2 Secondary and unspecified malignant neoplasm of intra-abdominal lymph nodes; K91.89 Other postprocedural complications and disorders of digestive system; D50.9 Iron deficiency anemia, unspecified; D69.59 Other secondary thrombocytopenia; R16.0 Hepatomegaly, not elsewhere classified; Z85.528 Personal history of other malignant neoplasm of kidney; Z92.21 Personal history of antineoplastic chemotherapy; Z87.891 Personal history of nicotine dependence
CPT/HCPCS: 36415; 80048; 80053; 83735; 85007; 85025; 85027; 88309; 94664; 94760

== ENCOUNTER 2018-12-12 08:23 | Outpatient (RCR) | payer BC, MEDICARE ==
[2018-09-14 08:54] LABS: BASOPHILS % (AUTO) 0 % (0-10); EOSINOPHILS # (AUTO) 0.2 10^3/uL (0.0-0.3); EOSINOPHILS % (AUTO) 3 % (0-10); HEMATOCRIT 38 % (35-52); HEMOGLOBIN 13.1 G/DL (11.5-16.0); LYMPHOCYTES # (AUTO) 0.9 X 10^3 (1.0-4.0); LYMPHOCYTES % (AUTO) 19 % (12-44); MEAN CORPUSCULAR HEMOGLOBIN 31 PG (25-34); MEAN CORPUSCULAR HGB CONC 34 G/DL (32-36); MEAN CORPUSCULAR VOLUME 90 FL (80-99); MEAN PLATELET VOLUME 9.3 FL (7.4-10.4); MONOCYTES # (AUTO) 0.4 X 10^3 (0.0-1.0); MONOCYTES % (AUTO) 9 % (0-12); NEUTROPHILS # (AUTO) 3.5 X 10^3 (1.8-7.8); NEUTROPHILS % (AUTO) 70 % (42-75); PLATELET COUNT 154 10^3/uL (130-400); RED CELL DISTRIBUTION WIDTH 12.5 % (10.0-14.5); WHITE BLOOD COUNT 5.1 10^3/uL (4.3-11.0)
[2018-09-14 09:30] LABS: ALANINE AMINOTRANSFERASE 17 U/L (0-55); ALBUMIN 4.2 GM/DL (3.2-4.5); ALKALINE PHOSPHATASE 68 U/L (40-136); BILIRUBIN,TOTAL 0.7 MG/DL (0.1-1.0); BUN/CREATININE RATIO 16; CALCIUM 10.2 MG/DL (8.5-10.1); CARBON DIOXIDE 24 MMOL/L (21-32); CHLORIDE 107 MMOL/L (98-107); CREATININE SERUM 0.83 MG/DL (0.60-1.30); GFR ESTIMATED > 60; GLUCOSE 98 MG/DL (70-105); POTASSIUM 4.4 MMOL/L (3.6-5.0); SODIUM 140 MMOL/L (135-145); TOTAL PROTEIN 6.7 GM/DL (6.4-8.2)
[2018-10-31 13:46] LABS: BASOPHILS % (AUTO) 0 % (0-10); EOSINOPHILS # (AUTO) 0.1 10^3/uL (0.0-0.3); EOSINOPHILS % (AUTO) 2 % (0-10); HEMATOCRIT 33 % (35-52); HEMOGLOBIN 11.1 G/DL (11.5-16.0); LYMPHOCYTES # (AUTO) 1.2 X 10^3 (1.0-4.0); LYMPHOCYTES % (AUTO) 29 % (12-44); MEAN CORPUSCULAR HEMOGLOBIN 30 PG (25-34); MEAN CORPUSCULAR HGB CONC 34 G/DL (32-36); MEAN CORPUSCULAR VOLUME 88 FL (80-99); MEAN PLATELET VOLUME 9.2 FL (7.4-10.4); MONOCYTES # (AUTO) 0.4 X 10^3 (0.0-1.0); MONOCYTES % (AUTO) 10 % (0-12); NEUTROPHILS # (AUTO) 2.5 X 10^3 (1.8-7.8); NEUTROPHILS % (AUTO) 59 % (42-75); PLATELET COUNT 144 10^3/uL (130-400); RED CELL DISTRIBUTION WIDTH 13.6 % (10.0-14.5); WHITE BLOOD COUNT 4.2 10^3/uL (4.3-11.0)
[2018-10-31 14:05] LABS: ALANINE AMINOTRANSFERASE 20 U/L (0-55); ALBUMIN 3.7 GM/DL (3.2-4.5); ALKALINE PHOSPHATASE 70 U/L (40-136); BILIRUBIN,TOTAL 0.5 MG/DL (0.1-1.0); BUN/CREATININE RATIO 18; CALCIUM 9.5 MG/DL (8.5-10.1); CARBON DIOXIDE 25 MMOL/L (21-32); CHLORIDE 113 MMOL/L (98-107); CREATININE SERUM 0.68 MG/DL (0.60-1.30); GFR ESTIMATED > 60; GLUCOSE 97 MG/DL (70-105); POTASSIUM 3.4 MMOL/L (3.6-5.0); SODIUM 146 MMOL/L (135-145); TOTAL PROTEIN 6.1 GM/DL (6.4-8.2)
[2018-11-14 08:22] LABS: BASOPHILS % (AUTO) 0 % (0-10); EOSINOPHILS # (AUTO) 0.2 10^3/uL (0.0-0.3); EOSINOPHILS % (AUTO) 4 % (0-10); HEMATOCRIT 34 % (35-52); HEMOGLOBIN 11.2 G/DL (11.5-16.0); LYMPHOCYTES # (AUTO) 1.1 X 10^3 (1.0-4.0); LYMPHOCYTES % (AUTO) 27 % (12-44); MEAN CORPUSCULAR HEMOGLOBIN 30 PG (25-34); MEAN CORPUSCULAR HGB CONC 33 G/DL (32-36); MEAN CORPUSCULAR VOLUME 91 FL (80-99); MEAN PLATELET VOLUME 9.2 FL (7.4-10.4); MONOCYTES # (AUTO) 0.4 X 10^3 (0.0-1.0); MONOCYTES % (AUTO) 9 % (0-12); NEUTROPHILS # (AUTO) 2.4 X 10^3 (1.8-7.8); NEUTROPHILS % (AUTO) 60 % (42-75); PLATELET COUNT 161 10^3/uL (130-400); RED CELL DISTRIBUTION WIDTH 13.4 % (10.0-14.5); WHITE BLOOD COUNT 4.1 10^3/uL (4.3-11.0)
[2018-11-14 08:56] LABS: BUN/CREATININE RATIO 14; CALCIUM 9.3 MG/DL (8.5-10.1); CARBON DIOXIDE 22 MMOL/L (21-32); CHLORIDE 110 MMOL/L (98-107); CREATININE SERUM 0.71 MG/DL (0.60-1.30); GFR ESTIMATED > 60; GLUCOSE 96 MG/DL (70-105); POTASSIUM 4.2 MMOL/L (3.6-5.0); SODIUM 141 MMOL/L (135-145)
[2018-11-21 13:09] LABS: BASOPHILS % (AUTO) 0 % (0-10); EOSINOPHILS % (AUTO) 1 % (0-10); HEMATOCRIT 34 % (35-52); HEMOGLOBIN 11.4 G/DL (11.5-16.0); LYMPHOCYTES # (AUTO) 1.3 X 10^3 (1.0-4.0); LYMPHOCYTES % (AUTO) 31 % (12-44); MEAN CORPUSCULAR HEMOGLOBIN 30 PG (25-34); MEAN CORPUSCULAR HGB CONC 33 G/DL (32-36); MEAN CORPUSCULAR VOLUME 90 FL (80-99); MONOCYTES # (AUTO) 0.5 X 10^3 (0.0-1.0); MONOCYTES % (AUTO) 11 % (0-12); NEUTROPHILS # (AUTO) 2.4 X 10^3 (1.8-7.8); NEUTROPHILS % (AUTO) 57 % (42-75); PLATELET COUNT 140 10^3/uL (130-400); RED CELL DISTRIBUTION WIDTH 14.3 % (10.0-14.5); WHITE BLOOD COUNT 4.2 10^3/uL (4.3-11.0)
[2018-11-21 13:28] LABS: ALANINE AMINOTRANSFERASE 15 U/L (0-55); ALKALINE PHOSPHATASE 59 U/L (40-136); BILIRUBIN,TOTAL 0.5 MG/DL (0.1-1.0); BUN/CREATININE RATIO 17; CALCIUM 9.3 MG/DL (8.5-10.1); CARBON DIOXIDE 23 MMOL/L (21-32); CHLORIDE 111 MMOL/L (98-107); CREATININE SERUM 0.76 MG/DL (0.60-1.30); GFR ESTIMATED > 60; GLUCOSE 88 MG/DL (70-105); POTASSIUM 4.1 MMOL/L (3.6-5.0); SODIUM 141 MMOL/L (135-145); TOTAL PROTEIN 6.3 GM/DL (6.4-8.2)
[2018-11-28 08:41] LABS: BASOPHILS % (AUTO) 1 % (0-10); EOSINOPHILS # (AUTO) 0.1 10^3/uL (0.0-0.3); EOSINOPHILS % (AUTO) 3 % (0-10); HEMATOCRIT 35 % (35-52); HEMOGLOBIN 11.6 G/DL (11.5-16.0); LYMPHOCYTES % (AUTO) 37 % (12-44); MEAN CORPUSCULAR HEMOGLOBIN 31 PG (25-34); MEAN CORPUSCULAR HGB CONC 33 G/DL (32-36); MEAN CORPUSCULAR VOLUME 92 FL (80-99); MEAN PLATELET VOLUME 9.2 FL (7.4-10.4); MONOCYTES # (AUTO) 0.3 X 10^3 (0.0-1.0); MONOCYTES % (AUTO) 12 % (0-12); NEUTROPHILS # (AUTO) 1.3 X 10^3 (1.8-7.8); NEUTROPHILS % (AUTO) 47 % (42-75); PLATELET COUNT 138 10^3/uL (130-400); RED CELL DISTRIBUTION WIDTH 13.6 % (10.0-14.5); WHITE BLOOD COUNT 2.7 10^3/uL (4.3-11.0)
[2018-11-28 08:58] LABS: BUN/CREATININE RATIO 13; CALCIUM 9.4 MG/DL (8.5-10.1); CARBON DIOXIDE 24 MMOL/L (21-32); CHLORIDE 110 MMOL/L (98-107); CREATININE SERUM 0.76 MG/DL (0.60-1.30); GFR ESTIMATED > 60; GLUCOSE 100 MG/DL (70-105); POTASSIUM 4.3 MMOL/L (3.6-5.0); SODIUM 140 MMOL/L (135-145)
[2018-12-05 13:02] LABS: BASOPHILS % (AUTO) 0 % (0-10); EOSINOPHILS # (AUTO) 0.1 10^3/uL (0.0-0.3); EOSINOPHILS % (AUTO) 1 % (0-10); HEMATOCRIT 34 % (35-52); HEMOGLOBIN 11.4 G/DL (11.5-16.0); LYMPHOCYTES % (AUTO) 28 % (12-44); MEAN CORPUSCULAR HEMOGLOBIN 30 PG (25-34); MEAN CORPUSCULAR HGB CONC 34 G/DL (32-36); MEAN CORPUSCULAR VOLUME 90 FL (80-99); MEAN PLATELET VOLUME 8.9 FL (7.4-10.4); MONOCYTES # (AUTO) 0.5 X 10^3 (0.0-1.0); MONOCYTES % (AUTO) 13 % (0-12); NEUTROPHILS # (AUTO) 2.1 X 10^3 (1.8-7.8); NEUTROPHILS % (AUTO) 57 % (42-75); PLATELET COUNT 91 10^3/uL (130-400); RED CELL DISTRIBUTION WIDTH 14.3 % (10.0-14.5); WHITE BLOOD COUNT 3.6 10^3/uL (4.3-11.0)
[2018-12-05 13:20] LABS: ALANINE AMINOTRANSFERASE 16 U/L (0-55); ALBUMIN 3.9 GM/DL (3.2-4.5); ALKALINE PHOSPHATASE 66 U/L (40-136); BILIRUBIN,TOTAL 0.5 MG/DL (0.1-1.0); BUN/CREATININE RATIO 20; CALCIUM 9.4 MG/DL (8.5-10.1); CARBON DIOXIDE 24 MMOL/L (21-32); CHLORIDE 114 MMOL/L (98-107); CREATININE SERUM 0.74 MG/DL (0.60-1.30); GFR ESTIMATED > 60; GLUCOSE 119 MG/DL (70-105); POTASSIUM 4.1 MMOL/L (3.6-5.0); SODIUM 143 MMOL/L (135-145); TOTAL PROTEIN 6.3 GM/DL (6.4-8.2)
[~2018-12-12] VITALS: Ht 175.3 cm; Wt 67.1 kg
[~2018-12-12 08:23] MED LIST changes: +D5W 500 ML IV (CANCER CTR) 500 ML IV SCH; +FAMOTIDINE 20MG/2ML IV (CANCER CTR) IV SCH; +FLUOROURACIL IV SCH; +FOSAPREPITANT DIMEGLUMINE 150 MG in NS (IVPB) CANCER CENTER ONLY 150 ML IV SCH; +LEUCOVORIN CALCIUM 700 MG in D5W 250 ML IVPB (CANCER CTR) 250 ML IV SCH; +NS IV SCH; +OXALIPLATIN 100 MG, OXALIPLATIN (GENERIC) 30 MG in D5W 250 ML IVPB (CANCER CTR) 250 ML IV SCH; +PALONOSETRON HCL 0.25 MG, DEXAMETHASONE INJECTION 10 MG in NS (IVPB) CANCER CENTER 50 ML IV SCH
[2018-12-12 08:37] LABS: BASOPHILS % (AUTO) 0 % (0-10); EOSINOPHILS # (AUTO) 0.1 10^3/uL (0.0-0.3); EOSINOPHILS % (AUTO) 3 % (0-10); HEMATOCRIT 35 % (35-52); HEMOGLOBIN 11.8 G/DL (11.5-16.0); LYMPHOCYTES # (AUTO) 0.9 X 10^3 (1.0-4.0); LYMPHOCYTES % (AUTO) 34 % (12-44); MEAN CORPUSCULAR HEMOGLOBIN 31 PG (25-34); MEAN CORPUSCULAR HGB CONC 34 G/DL (32-36); MEAN CORPUSCULAR VOLUME 91 FL (80-99); MEAN PLATELET VOLUME 9.8 FL (7.4-10.4); MONOCYTES # (AUTO) 0.3 X 10^3 (0.0-1.0); MONOCYTES % (AUTO) 11 % (0-12); NEUTROPHILS # (AUTO) 1.4 X 10^3 (1.8-7.8); NEUTROPHILS % (AUTO) 52 % (42-75); PLATELET COUNT 108 10^3/uL (130-400); RED CELL DISTRIBUTION WIDTH 13.9 % (10.0-14.5); WHITE BLOOD COUNT 2.7 10^3/uL (4.3-11.0)
[2018-12-12 08:56] LABS: BUN/CREATININE RATIO 21; CALCIUM 9.5 MG/DL (8.5-10.1); CARBON DIOXIDE 22 MMOL/L (21-32); CHLORIDE 112 MMOL/L (98-107); CREATININE SERUM 0.75 MG/DL (0.60-1.30); GFR ESTIMATED > 60; GLUCOSE 100 MG/DL (70-105); POTASSIUM 4.1 MMOL/L (3.6-5.0); SODIUM 140 MMOL/L (135-145)
== END 2018-12-13 | disposition home or self-care (01) ==
LOC: ONC 08:23
PROVIDERS: ATTEND Internal Medicine Hematology & Oncology
DX: Z51.11 Encounter for antineoplastic chemotherapy (principal); C18.7 Malignant neoplasm of sigmoid colon; C18.2 Malignant neoplasm of ascending colon; D50.9 Iron deficiency anemia, unspecified; K59.00 Constipation, unspecified; Z90.49 Acquired absence of other specified parts of digestive tract; Z87.891 Personal history of nicotine dependence
CPT/HCPCS: 36415; 36591; 80048; 80053; 82378; 85025; 96367; 96368; 96375; 96411; 96413; 99213

== ENCOUNTER 2019-02-27 13:06 | Outpatient (RCR) | payer BC, MEDICARE ==
[2018-12-19 13:29] LABS: BASOPHILS % (AUTO) 0 % (0-10); EOSINOPHILS % (AUTO) 1 % (0-10); HEMATOCRIT 35 % (35-52); HEMOGLOBIN 11.7 G/DL (11.5-16.0); LYMPHOCYTES # (AUTO) 1.1 X 10^3 (1.0-4.0); LYMPHOCYTES % (AUTO) 32 % (12-44); MEAN CORPUSCULAR HEMOGLOBIN 31 PG (25-34); MEAN CORPUSCULAR HGB CONC 34 G/DL (32-36); MEAN CORPUSCULAR VOLUME 93 FL (80-99); MEAN PLATELET VOLUME 9.9 FL (7.4-10.4); MONOCYTES # (AUTO) 0.5 X 10^3 (0.0-1.0); MONOCYTES % (AUTO) 13 % (0-12); NEUTROPHILS # (AUTO) 1.9 X 10^3 (1.8-7.8); NEUTROPHILS % (AUTO) 54 % (42-75); PLATELET COUNT 79 10^3/uL (130-400); RED CELL DISTRIBUTION WIDTH 14.9 % (10.0-14.5); WHITE BLOOD COUNT 3.5 10^3/uL (4.3-11.0)
[2018-12-19 13:45] LABS: ALANINE AMINOTRANSFERASE 34 U/L (0-55); ALKALINE PHOSPHATASE 86 U/L (40-136); BILIRUBIN,TOTAL 0.4 MG/DL (0.1-1.0); BUN/CREATININE RATIO 18; CALCIUM 9.3 MG/DL (8.5-10.1); CARBON DIOXIDE 25 MMOL/L (21-32); CHLORIDE 111 MMOL/L (98-107); CREATININE SERUM 0.79 MG/DL (0.60-1.30); GFR ESTIMATED > 60; GLUCOSE 117 MG/DL (70-105); POTASSIUM 4.2 MMOL/L (3.6-5.0); SODIUM 141 MMOL/L (135-145); TOTAL PROTEIN 6.4 GM/DL (6.4-8.2)
[2018-12-26 08:30] LABS: BASOPHILS % (AUTO) 0 % (0-10); EOSINOPHILS # (AUTO) 0.1 10^3/uL (0.0-0.3); EOSINOPHILS % (AUTO) 2 % (0-10); HEMATOCRIT 38 % (35-52); HEMOGLOBIN 12.4 G/DL (11.5-16.0); LYMPHOCYTES # (AUTO) 0.9 X 10^3 (1.0-4.0); LYMPHOCYTES % (AUTO) 35 % (12-44); MEAN CORPUSCULAR HEMOGLOBIN 31 PG (25-34); MEAN CORPUSCULAR HGB CONC 33 G/DL (32-36); MEAN CORPUSCULAR VOLUME 93 FL (80-99); MEAN PLATELET VOLUME 9.6 FL (7.4-10.4); MONOCYTES # (AUTO) 0.4 X 10^3 (0.0-1.0); MONOCYTES % (AUTO) 17 % (0-12); NEUTROPHILS # (AUTO) 1.2 X 10^3 (1.8-7.8); NEUTROPHILS % (AUTO) 45 % (42-75); PLATELET COUNT 112 10^3/uL (130-400); RED CELL DISTRIBUTION WIDTH 14.5 % (10.0-14.5); WHITE BLOOD COUNT 2.6 10^3/uL (4.3-11.0)
[2018-12-26 08:45] LABS: BUN/CREATININE RATIO 14; CALCIUM 9.4 MG/DL (8.5-10.1); CARBON DIOXIDE 21 MMOL/L (21-32); CHLORIDE 110 MMOL/L (98-107); GFR ESTIMATED > 60; GLUCOSE 89 MG/DL (70-105); POTASSIUM 3.8 MMOL/L (3.6-5.0); SODIUM 140 MMOL/L (135-145)
[2019-01-02 13:45] LABS: BASOPHILS % (AUTO) 0 % (0-10); EOSINOPHILS # (AUTO) 0.1 10^3/uL (0.0-0.3); EOSINOPHILS % (AUTO) 1 % (0-10); HEMATOCRIT 34 % (35-52); HEMOGLOBIN 11.4 G/DL (11.5-16.0); LYMPHOCYTES % (AUTO) 26 % (12-44); MEAN CORPUSCULAR HEMOGLOBIN 32 PG (25-34); MEAN CORPUSCULAR HGB CONC 34 G/DL (32-36); MEAN CORPUSCULAR VOLUME 94 FL (80-99); MEAN PLATELET VOLUME 9.8 FL (7.4-10.4); MONOCYTES # (AUTO) 0.6 X 10^3 (0.0-1.0); MONOCYTES % (AUTO) 16 % (0-12); NEUTROPHILS # (AUTO) 2.2 X 10^3 (1.8-7.8); NEUTROPHILS % (AUTO) 57 % (42-75); PLATELET COUNT 77 10^3/uL (130-400); RED CELL DISTRIBUTION WIDTH 15.5 % (10.0-14.5); WHITE BLOOD COUNT 3.9 10^3/uL (4.3-11.0)
[2019-01-02 14:02] LABS: ALANINE AMINOTRANSFERASE 28 U/L (0-55); ALBUMIN 3.9 GM/DL (3.2-4.5); ALKALINE PHOSPHATASE 81 U/L (40-136); BILIRUBIN,TOTAL 0.3 MG/DL (0.1-1.0); BUN/CREATININE RATIO 15; CARBON DIOXIDE 24 MMOL/L (21-32); CHLORIDE 112 MMOL/L (98-107); CREATININE SERUM 0.79 MG/DL (0.60-1.30); GFR ESTIMATED > 60; GLUCOSE 88 MG/DL (70-105); POTASSIUM 4.2 MMOL/L (3.6-5.0); SODIUM 141 MMOL/L (135-145); TOTAL PROTEIN 6.2 GM/DL (6.4-8.2)
[2019-01-09 08:34] LABS: BASOPHILS % (AUTO) 0 % (0-10); EOSINOPHILS # (AUTO) 0.1 10^3/uL (0.0-0.3); EOSINOPHILS % (AUTO) 2 % (0-10); HEMATOCRIT 36 % (35-52); HEMOGLOBIN 11.8 G/DL (11.5-16.0); LYMPHOCYTES # (AUTO) 0.8 X 10^3 (1.0-4.0); LYMPHOCYTES % (AUTO) 24 % (12-44); MEAN CORPUSCULAR HEMOGLOBIN 31 PG (25-34); MEAN CORPUSCULAR HGB CONC 33 G/DL (32-36); MEAN CORPUSCULAR VOLUME 94 FL (80-99); MEAN PLATELET VOLUME 9.7 FL (7.4-10.4); MONOCYTES # (AUTO) 0.4 X 10^3 (0.0-1.0); MONOCYTES % (AUTO) 11 % (0-12); NEUTROPHILS # (AUTO) 2.1 X 10^3 (1.8-7.8); NEUTROPHILS % (AUTO) 63 % (42-75); PLATELET COUNT 88 10^3/uL (130-400); RED CELL DISTRIBUTION WIDTH 14.9 % (10.0-14.5); WHITE BLOOD COUNT 3.3 10^3/uL (4.3-11.0)
[2019-01-09 08:49] LABS: BUN/CREATININE RATIO 18; CALCIUM 9.3 MG/DL (8.5-10.1); CARBON DIOXIDE 21 MMOL/L (21-32); CHLORIDE 112 MMOL/L (98-107); CREATININE SERUM 0.74 MG/DL (0.60-1.30); GFR ESTIMATED > 60; GLUCOSE 98 MG/DL (70-105); POTASSIUM 4.3 MMOL/L (3.6-5.0); SODIUM 142 MMOL/L (135-145)
[2019-01-16 10:34] LABS: BASOPHILS % (AUTO) 0 % (0-10); EOSINOPHILS # (AUTO) 0.1 10^3/uL (0.0-0.3); EOSINOPHILS % (AUTO) 2 % (0-10); HEMATOCRIT 34 % (35-52); HEMOGLOBIN 11.3 G/DL (11.5-16.0); LYMPHOCYTES # (AUTO) 0.9 X 10^3 (1.0-4.0); LYMPHOCYTES % (AUTO) 25 % (12-44); MEAN CORPUSCULAR HEMOGLOBIN 31 PG (25-34); MEAN CORPUSCULAR HGB CONC 33 G/DL (32-36); MEAN CORPUSCULAR VOLUME 93 FL (80-99); MEAN PLATELET VOLUME 8.5 FL (7.4-10.4); MONOCYTES # (AUTO) 0.6 X 10^3 (0.0-1.0); MONOCYTES % (AUTO) 17 % (0-12); NEUTROPHILS # (AUTO) 1.9 X 10^3 (1.8-7.8); NEUTROPHILS % (AUTO) 56 % (42-75); PLATELET COUNT 102 10^3/uL (130-400); RED CELL DISTRIBUTION WIDTH 15.3 % (10.0-14.5); WHITE BLOOD COUNT 3.5 10^3/uL (4.3-11.0)
[2019-01-16 10:53] LABS: ALANINE AMINOTRANSFERASE 22 U/L (0-55); ALBUMIN 3.8 GM/DL (3.2-4.5); ALKALINE PHOSPHATASE 78 U/L (40-136); BILIRUBIN,TOTAL 0.5 MG/DL (0.1-1.0); BUN/CREATININE RATIO 18; CALCIUM 9.7 MG/DL (8.5-10.1); CARBON DIOXIDE 21 MMOL/L (21-32); CHLORIDE 110 MMOL/L (98-107); GFR ESTIMATED > 60; GLUCOSE 101 MG/DL (70-105); POTASSIUM 4.4 MMOL/L (3.6-5.0); SODIUM 142 MMOL/L (135-145); TOTAL PROTEIN 6.4 GM/DL (6.4-8.2)
[2019-01-23 09:23] LABS: BASOPHILS % (AUTO) 0 % (0-10); EOSINOPHILS # (AUTO) 0.1 10^3/uL (0.0-0.3); EOSINOPHILS % (AUTO) 4 % (0-10); HEMATOCRIT 33 % (35-52); HEMOGLOBIN 11.1 G/DL (11.5-16.0); LYMPHOCYTES # (AUTO) 0.9 X 10^3 (1.0-4.0); LYMPHOCYTES % (AUTO) 39 % (12-44); MEAN CORPUSCULAR HEMOGLOBIN 32 PG (25-34); MEAN CORPUSCULAR HGB CONC 34 G/DL (32-36); MEAN CORPUSCULAR VOLUME 95 FL (80-99); MEAN PLATELET VOLUME 9.5 FL (7.4-10.4); MONOCYTES # (AUTO) 0.4 X 10^3 (0.0-1.0); MONOCYTES % (AUTO) 16 % (0-12); NEUTROPHILS # (AUTO) 0.9 X 10^3 (1.8-7.8); NEUTROPHILS % (AUTO) 41 % (42-75); PLATELET COUNT 96 10^3/uL (130-400); RED CELL DISTRIBUTION WIDTH 14.5 % (10.0-14.5); WHITE BLOOD COUNT 2.2 10^3/uL (4.3-11.0)
[2019-01-23 09:49] LABS: BUN/CREATININE RATIO 18; CALCIUM 9.5 MG/DL (8.5-10.1); CARBON DIOXIDE 23 MMOL/L (21-32); CHLORIDE 108 MMOL/L (98-107); GFR ESTIMATED > 60; GLUCOSE 94 MG/DL (70-105); POTASSIUM 4.4 MMOL/L (3.6-5.0); SODIUM 138 MMOL/L (135-145)
[2019-01-30 08:47] LABS: BASOPHILS % (AUTO) 0 % (0-10); EOSINOPHILS # (AUTO) 0.1 10^3/uL (0.0-0.3); EOSINOPHILS % (AUTO) 2 % (0-10); HEMATOCRIT 33 % (35-52); HEMOGLOBIN 10.9 G/DL (11.5-16.0); LYMPHOCYTES # (AUTO) 0.7 X 10^3 (1.0-4.0); LYMPHOCYTES % (AUTO) 23 % (12-44); MEAN CORPUSCULAR HEMOGLOBIN 32 PG (25-34); MEAN CORPUSCULAR HGB CONC 33 G/DL (32-36); MEAN CORPUSCULAR VOLUME 96 FL (80-99); MONOCYTES # (AUTO) 0.6 X 10^3 (0.0-1.0); MONOCYTES % (AUTO) 20 % (0-12); NEUTROPHILS # (AUTO) 1.6 X 10^3 (1.8-7.8); NEUTROPHILS % (AUTO) 55 % (42-75); PLATELET COUNT 63 10^3/uL (130-400); RED CELL DISTRIBUTION WIDTH 15.6 % (10.0-14.5); WHITE BLOOD COUNT 2.9 10^3/uL (4.3-11.0)
[2019-01-30 09:14] LABS: ALANINE AMINOTRANSFERASE 21 U/L (0-55); ALBUMIN 3.6 GM/DL (3.2-4.5); ALKALINE PHOSPHATASE 76 U/L (40-136); BILIRUBIN,TOTAL 0.4 MG/DL (0.1-1.0); BUN/CREATININE RATIO 12; CARBON DIOXIDE 22 MMOL/L (21-32); CHLORIDE 112 MMOL/L (98-107); CREATININE SERUM 0.83 MG/DL (0.60-1.30); GFR ESTIMATED > 60; GLUCOSE 117 MG/DL (70-105); POTASSIUM 3.9 MMOL/L (3.6-5.0); SODIUM 141 MMOL/L (135-145)
[2019-02-06 13:16] LABS: BASOPHILS % (AUTO) 0 % (0-10); EOSINOPHILS # (AUTO) 0.1 10^3/uL (0.0-0.3); EOSINOPHILS % (AUTO) 3 % (0-10); HEMATOCRIT 35 % (35-52); HEMOGLOBIN 11.6 G/DL (11.5-16.0); LYMPHOCYTES % (AUTO) 32 % (12-44); MEAN CORPUSCULAR HEMOGLOBIN 32 PG (25-34); MEAN CORPUSCULAR HGB CONC 33 G/DL (32-36); MEAN CORPUSCULAR VOLUME 98 FL (80-99); MEAN PLATELET VOLUME 9.2 FL (7.4-10.4); MONOCYTES # (AUTO) 0.5 X 10^3 (0.0-1.0); MONOCYTES % (AUTO) 17 % (0-12); NEUTROPHILS # (AUTO) 1.5 X 10^3 (1.8-7.8); NEUTROPHILS % (AUTO) 49 % (42-75); PLATELET COUNT 108 10^3/uL (130-400); RED CELL DISTRIBUTION WIDTH 15.1 % (10.0-14.5); WHITE BLOOD COUNT 3.2 10^3/uL (4.3-11.0)
[2019-02-06 13:34] LABS: ALANINE AMINOTRANSFERASE 24 U/L (0-55); ALBUMIN 3.9 GM/DL (3.2-4.5); ALKALINE PHOSPHATASE 77 U/L (40-136); BILIRUBIN,TOTAL 0.4 MG/DL (0.1-1.0); BUN/CREATININE RATIO 14; CALCIUM 9.5 MG/DL (8.5-10.1); CARBON DIOXIDE 22 MMOL/L (21-32); CHLORIDE 115 MMOL/L (98-107); CREATININE SERUM 0.81 MG/DL (0.60-1.30); GFR ESTIMATED > 60; GLUCOSE 101 MG/DL (70-105); SODIUM 144 MMOL/L (135-145); TOTAL PROTEIN 6.6 GM/DL (6.4-8.2)
[2019-02-20 13:26] LABS: BASOPHILS % (AUTO) 0 % (0-10); EOSINOPHILS # (AUTO) 0.1 10^3/uL (0.0-0.3); EOSINOPHILS % (AUTO) 2 % (0-10); HEMATOCRIT 35 % (35-52); HEMOGLOBIN 11.3 G/DL (11.5-16.0); LYMPHOCYTES # (AUTO) 1.1 X 10^3 (1.0-4.0); LYMPHOCYTES % (AUTO) 20 % (12-44); MEAN CORPUSCULAR HEMOGLOBIN 32 PG (25-34); MEAN CORPUSCULAR HGB CONC 33 G/DL (32-36); MEAN CORPUSCULAR VOLUME 97 FL (80-99); MEAN PLATELET VOLUME 9.3 FL (7.4-10.4); MONOCYTES # (AUTO) 0.7 X 10^3 (0.0-1.0); MONOCYTES % (AUTO) 12 % (0-12); NEUTROPHILS # (AUTO) 3.8 X 10^3 (1.8-7.8); NEUTROPHILS % (AUTO) 66 % (42-75); PLATELET COUNT 115 10^3/uL (130-400); RED CELL DISTRIBUTION WIDTH 14.7 % (10.0-14.5); WHITE BLOOD COUNT 5.8 10^3/uL (4.3-11.0)
[2019-02-20 13:59] LABS: ALANINE AMINOTRANSFERASE 27 U/L (0-55); ALKALINE PHOSPHATASE 89 U/L (40-136); BILIRUBIN,TOTAL 0.6 MG/DL (0.1-1.0); BUN/CREATININE RATIO 15; CALCIUM 9.8 MG/DL (8.5-10.1); CARBON DIOXIDE 21 MMOL/L (21-32); CHLORIDE 112 MMOL/L (98-107); GFR ESTIMATED > 60; GLUCOSE 122 MG/DL (70-105); POTASSIUM 4.1 MMOL/L (3.6-5.0); SODIUM 142 MMOL/L (135-145); TOTAL PROTEIN 6.7 GM/DL (6.4-8.2)
[~2019-02-27 13:06] MED LIST changes: +OXALIPLATIN 100 MG, OXALIPLATIN (GENERIC) 10 MG in D5W 250 ML IVPB (CANCER CTR) 250 ML IV SCH; +diphenhydrAMINE 25 MG TAB (BENADRYL) CANCER CENTER PO ONE; +diphenhydrAMINE 25 MG TAB (BENADRYL) CANCER CENTER PO SCH
[2019-02-27 13:27] LABS: BASOPHILS % (AUTO) 0 % (0-10); EOSINOPHILS # (AUTO) 0.1 10^3/uL (0.0-0.3); EOSINOPHILS % (AUTO) 2 % (0-10); HEMATOCRIT 34 % (35-52); LYMPHOCYTES # (AUTO) 1.1 X 10^3 (1.0-4.0); LYMPHOCYTES % (AUTO) 22 % (12-44); MEAN CORPUSCULAR HEMOGLOBIN 31 PG (25-34); MEAN CORPUSCULAR HGB CONC 32 G/DL (32-36); MEAN CORPUSCULAR VOLUME 97 FL (80-99); MEAN PLATELET VOLUME 8.7 FL (7.4-10.4); MONOCYTES # (AUTO) 0.6 X 10^3 (0.0-1.0); MONOCYTES % (AUTO) 13 % (0-12); NEUTROPHILS % (AUTO) 63 % (42-75); PLATELET COUNT 141 10^3/uL (130-400); RED CELL DISTRIBUTION WIDTH 14.2 % (10.0-14.5); WHITE BLOOD COUNT 4.8 10^3/uL (4.3-11.0)
[2019-02-27 13:42] LABS: ALANINE AMINOTRANSFERASE 18 U/L (0-55); ALBUMIN 3.8 GM/DL (3.2-4.5); ALKALINE PHOSPHATASE 86 U/L (40-136); BILIRUBIN,TOTAL 0.4 MG/DL (0.1-1.0); BUN/CREATININE RATIO 14; CARBON DIOXIDE 22 MMOL/L (21-32); CHLORIDE 108 MMOL/L (98-107); CREATININE SERUM 0.72 MG/DL (0.60-1.30); GFR ESTIMATED > 60; GLUCOSE 99 MG/DL (70-105); POTASSIUM 4.3 MMOL/L (3.6-5.0); SODIUM 141 MMOL/L (135-145); TOTAL PROTEIN 6.7 GM/DL (6.4-8.2)
== END 2019-03-19 | disposition home or self-care (01) ==
LOC: ONC 13:06
PROVIDERS: ATTEND Internal Medicine Hematology & Oncology
DX: Z51.11 Encounter for antineoplastic chemotherapy (principal); C18.7 Malignant neoplasm of sigmoid colon; C18.2 Malignant neoplasm of ascending colon; D50.9 Iron deficiency anemia, unspecified; K59.00 Constipation, unspecified; Z90.49 Acquired absence of other specified parts of digestive tract; Z87.891 Personal history of nicotine dependence
CPT/HCPCS: 36415; 36591; 80048; 80053; 85025; 96367; 96368; 96375; 96411; 96413

== ENCOUNTER 2019-06-19 12:43 | Outpatient (RCR) | payer BC, MEDICARE ==
[2019-03-27 14:04] LABS: BASOPHILS % (AUTO) 0 % (0-10); EOSINOPHILS # (AUTO) 0.1 10^3/uL (0.0-0.3); EOSINOPHILS % (AUTO) 2 % (0-10); HEMATOCRIT 36 % (35-52); HEMOGLOBIN 11.6 G/DL (11.5-16.0); LYMPHOCYTES # (AUTO) 0.9 X 10^3 (1.0-4.0); LYMPHOCYTES % (AUTO) 21 % (12-44); MEAN CORPUSCULAR HEMOGLOBIN 31 PG (25-34); MEAN CORPUSCULAR HGB CONC 32 G/DL (32-36); MEAN CORPUSCULAR VOLUME 98 FL (80-99); MEAN PLATELET VOLUME 9.8 FL (7.4-10.4); MONOCYTES # (AUTO) 0.6 X 10^3 (0.0-1.0); MONOCYTES % (AUTO) 13 % (0-12); NEUTROPHILS # (AUTO) 2.7 X 10^3 (1.8-7.8); NEUTROPHILS % (AUTO) 63 % (42-75); PLATELET COUNT 111 10^3/uL (130-400); RED CELL DISTRIBUTION WIDTH 13.8 % (10.0-14.5); WHITE BLOOD COUNT 4.3 10^3/uL (4.3-11.0)
[2019-03-27 14:20] LABS: ALANINE AMINOTRANSFERASE 17 U/L (0-55); ALBUMIN 3.8 GM/DL (3.2-4.5); ALKALINE PHOSPHATASE 86 U/L (40-136); BILIRUBIN,TOTAL 0.4 MG/DL (0.1-1.0); BUN/CREATININE RATIO 18; CALCIUM 9.3 MG/DL (8.5-10.1); CARBON DIOXIDE 20 MMOL/L (21-32); CHLORIDE 110 MMOL/L (98-107); GFR ESTIMATED > 60; GLUCOSE 125 MG/DL (70-105); SODIUM 141 MMOL/L (135-145); TOTAL PROTEIN 6.4 GM/DL (6.4-8.2)
[2019-04-17 14:28] LABS: BASOPHILS % (AUTO) 0 % (0-10); EOSINOPHILS # (AUTO) 0.1 10^3/uL (0.0-0.3); EOSINOPHILS % (AUTO) 4 % (0-10); HEMATOCRIT 36 % (35-52); HEMOGLOBIN 11.9 G/DL (11.5-16.0); LYMPHOCYTES % (AUTO) 30 % (12-44); MEAN CORPUSCULAR HEMOGLOBIN 32 PG (25-34); MEAN CORPUSCULAR HGB CONC 33 G/DL (32-36); MEAN CORPUSCULAR VOLUME 97 FL (80-99); MEAN PLATELET VOLUME 9.7 FL (7.4-10.4); MONOCYTES # (AUTO) 0.4 X 10^3 (0.0-1.0); MONOCYTES % (AUTO) 13 % (0-12); NEUTROPHILS # (AUTO) 1.7 X 10^3 (1.8-7.8); NEUTROPHILS % (AUTO) 53 % (42-75); PLATELET COUNT 121 10^3/uL (130-400); RED CELL DISTRIBUTION WIDTH 13.8 % (10.0-14.5); WHITE BLOOD COUNT 3.2 10^3/uL (4.3-11.0)
[2019-04-17 14:45] LABS: ALANINE AMINOTRANSFERASE 21 U/L (0-55); ALBUMIN 3.9 GM/DL (3.2-4.5); ALKALINE PHOSPHATASE 82 U/L (40-136); BILIRUBIN,TOTAL 0.5 MG/DL (0.1-1.0); BUN/CREATININE RATIO 13; CALCIUM 9.5 MG/DL (8.5-10.1); CARBON DIOXIDE 22 MMOL/L (21-32); CHLORIDE 111 MMOL/L (98-107); CREATININE SERUM 0.83 MG/DL (0.60-1.30); GFR ESTIMATED > 60; GLUCOSE 126 MG/DL (70-105); POTASSIUM 3.9 MMOL/L (3.6-5.0); SODIUM 142 MMOL/L (135-145); TOTAL PROTEIN 6.8 GM/DL (6.4-8.2)
[2019-05-08 13:34] LABS: BASOPHILS % (AUTO) 0 % (0-10); EOSINOPHILS # (AUTO) 0.1 10^3/uL (0.0-0.3); EOSINOPHILS % (AUTO) 3 % (0-10); HEMATOCRIT 35 % (35-52); HEMOGLOBIN 11.5 G/DL (11.5-16.0); LYMPHOCYTES # (AUTO) 0.7 X 10^3 (1.0-4.0); LYMPHOCYTES % (AUTO) 29 % (12-44); MEAN CORPUSCULAR HGB CONC 33 G/DL (32-36); MEAN CORPUSCULAR VOLUME 98 FL (80-99); MEAN PLATELET VOLUME 9.5 FL (7.4-10.4); MONOCYTES # (AUTO) 0.4 X 10^3 (0.0-1.0); MONOCYTES % (AUTO) 16 % (0-12); NEUTROPHILS # (AUTO) 1.2 X 10^3 (1.8-7.8); NEUTROPHILS % (AUTO) 52 % (42-75); PLATELET COUNT 99 10^3/uL (130-400); RED CELL DISTRIBUTION WIDTH 14.5 % (10.0-14.5); WHITE BLOOD COUNT 2.3 10^3/uL (4.3-11.0)
[2019-05-08 13:35] LABS: MEAN CORPUSCULAR HEMOGLOBIN 32 PG (25-34)
[2019-05-08 13:52] LABS: ALANINE AMINOTRANSFERASE 19 U/L (0-55); ALBUMIN 3.9 GM/DL (3.2-4.5); ALKALINE PHOSPHATASE 86 U/L (40-136); BILIRUBIN,TOTAL 0.6 MG/DL (0.1-1.0); BUN/CREATININE RATIO 14; CALCIUM 9.7 MG/DL (8.5-10.1); CARBON DIOXIDE 23 MMOL/L (21-32); CHLORIDE 110 MMOL/L (98-107); CREATININE SERUM 0.88 MG/DL (0.60-1.30); GFR ESTIMATED > 60; GLUCOSE 138 MG/DL (70-105); POTASSIUM 3.9 MMOL/L (3.6-5.0); SODIUM 142 MMOL/L (135-145); TOTAL PROTEIN 6.5 GM/DL (6.4-8.2)
[2019-05-29 12:52] LABS: BASOPHILS % (AUTO) 0 % (0-10); EOSINOPHILS # (AUTO) 0.1 10^3/uL (0.0-0.3); EOSINOPHILS % (AUTO) 2 % (0-10); HEMATOCRIT 34 % (35-52); LYMPHOCYTES # (AUTO) 0.8 X 10^3 (1.0-4.0); LYMPHOCYTES % (AUTO) 31 % (12-44); MEAN CORPUSCULAR HEMOGLOBIN 32 PG (25-34); MEAN CORPUSCULAR HGB CONC 33 G/DL (32-36); MEAN CORPUSCULAR VOLUME 97 FL (80-99); MEAN PLATELET VOLUME 9.4 FL (7.4-10.4); MONOCYTES # (AUTO) 0.3 X 10^3 (0.0-1.0); MONOCYTES % (AUTO) 13 % (0-12); NEUTROPHILS # (AUTO) 1.4 X 10^3 (1.8-7.8); NEUTROPHILS % (AUTO) 53 % (42-75); PLATELET COUNT 94 10^3/uL (130-400); RED CELL DISTRIBUTION WIDTH 14.6 % (10.0-14.5); WHITE BLOOD COUNT 2.6 10^3/uL (4.3-11.0)
[2019-05-29 13:26] LABS: ALANINE AMINOTRANSFERASE 20 U/L (0-55); ALBUMIN 3.9 GM/DL (3.2-4.5); ALKALINE PHOSPHATASE 83 U/L (40-136); BILIRUBIN,TOTAL 0.7 MG/DL (0.1-1.0); BUN/CREATININE RATIO 16; CALCIUM 9.5 MG/DL (8.5-10.1); CARBON DIOXIDE 24 MMOL/L (21-32); CHLORIDE 111 MMOL/L (98-107); CREATININE SERUM 0.82 MG/DL (0.60-1.30); GFR ESTIMATED > 60; GLUCOSE 118 MG/DL (70-105); POTASSIUM 3.9 MMOL/L (3.6-5.0); SODIUM 142 MMOL/L (135-145); TOTAL PROTEIN 6.5 GM/DL (6.4-8.2)
[~2019-06-19 12:43] MED LIST changes: -FLUOROURACIL IV SCH; -FOSAPREPITANT DIMEGLUMINE 150 MG in NS (IVPB) CANCER CENTER ONLY 150 ML IV SCH; -NS IV SCH; +OXALIPLATIN 100 MG in D5W 250 ML IVPB (CANCER CTR) 250 ML IV SCH; -OXALIPLATIN 100 MG, OXALIPLATIN (GENERIC) 30 MG in D5W 250 ML IVPB (CANCER CTR) 250 ML IV SCH; -diphenhydrAMINE 25 MG TAB (BENADRYL) CANCER CENTER PO ONE
[2019-06-19 13:37] LABS: BASOPHILS % (AUTO) 0 % (0-10); EOSINOPHILS # (AUTO) 0.1 10^3/uL (0.0-0.3); EOSINOPHILS % (AUTO) 4 % (0-10); HEMATOCRIT 35 % (35-52); LYMPHOCYTES # (AUTO) 0.8 X 10^3 (1.0-4.0); LYMPHOCYTES % (AUTO) 28 % (12-44); MEAN CORPUSCULAR HEMOGLOBIN 32 PG (25-34); MEAN CORPUSCULAR HGB CONC 34 G/DL (32-36); MEAN CORPUSCULAR VOLUME 95 FL (80-99); MEAN PLATELET VOLUME 9.4 FL (7.4-10.4); MONOCYTES # (AUTO) 0.4 X 10^3 (0.0-1.0); MONOCYTES % (AUTO) 13 % (0-12); NEUTROPHILS # (AUTO) 1.7 X 10^3 (1.8-7.8); NEUTROPHILS % (AUTO) 55 % (42-75); PLATELET COUNT 119 10^3/uL (130-400); RED CELL DISTRIBUTION WIDTH 14.5 % (10.0-14.5); WHITE BLOOD COUNT 3.1 10^3/uL (4.3-11.0)
[2019-06-19 13:59] LABS: BILIRUBIN,TOTAL 0.6 MG/DL (0.1-1.0); CALCIUM 9.4 MG/DL (8.5-10.1); CREATININE SERUM 0.91 MG/DL (0.60-1.30); POTASSIUM 3.9 MMOL/L (3.6-5.0); TOTAL PROTEIN 6.7 GM/DL (6.4-8.2)
== END 2019-06-25 | disposition home or self-care (01) ==
LOC: ONC 12:43
PROVIDERS: ATTEND Internal Medicine Hematology & Oncology
DX: Z51.11 Encounter for antineoplastic chemotherapy (principal); C18.7 Malignant neoplasm of sigmoid colon; C18.2 Malignant neoplasm of ascending colon; D50.9 Iron deficiency anemia, unspecified; K59.00 Constipation, unspecified; Z90.49 Acquired absence of other specified parts of digestive tract; Z87.891 Personal history of nicotine dependence
CPT/HCPCS: 36591; 80053; 85025; 96368; 96375; 96411; 96413

== ENCOUNTER → 2019-08-06 | Outpatient (CLI) | payer BC, MEDICARE ==
[~2019-08-06] MED LIST changes: -D5W 500 ML IV (CANCER CTR) 500 ML IV SCH; -FAMOTIDINE 20MG/2ML IV (CANCER CTR) IV SCH; -LEUCOVORIN CALCIUM 700 MG in D5W 250 ML IVPB (CANCER CTR) 250 ML IV SCH; -OXALIPLATIN 100 MG in D5W 250 ML IVPB (CANCER CTR) 250 ML IV SCH; -OXALIPLATIN 100 MG, OXALIPLATIN (GENERIC) 10 MG in D5W 250 ML IVPB (CANCER CTR) 250 ML IV SCH; -PALONOSETRON HCL 0.25 MG, DEXAMETHASONE INJECTION 10 MG in NS (IVPB) CANCER CENTER 50 ML IV SCH; -diphenhydrAMINE 25 MG TAB (BENADRYL) CANCER CENTER PO SCH
--- NOTE | 2019-08-06 13:40 | Diagnostic Imaging Report ---
PROCEDURE: US Renal Bilateral. TECHNIQUE: Multiple Real-time grayscale images were obtained over the kidneys in various projections bilaterally. INDICATION: Right renal mass. FINDINGS: The right kidney measures 9.3 x 4.8 x 5 cm and the left kidney measures 11.5 x 5 x 4.4 cm. Both kidneys demonstrate normal renal cortical thickness and echogenicity. There is a solid-appearing exophytic mass projecting off the inferior aspect of the right kidney measuring 2.4 x 2.4 x 1.7 cm. This previously measured 1.8 cm on a PET scan from September 2018. No other discrete masses are appreciated. There is no hydronephrosis or calculus. Both ureteral jets are seen within the bladder. IMPRESSION: Interval increase in size of the solid-appearing exophytic mass projecting off the inferior aspect of the right kidney. This remains suspect for residual and/or recurrent renal cell carcinoma. Dictated by: Dictated on workstation # [id number]
== END ==
LOC: RAD 10:05
DX: C64.1 Malignant neoplasm of right kidney, except renal pelvis (principal)
CPT/HCPCS: 76770

== ENCOUNTER → 2019-08-30 | Outpatient (CLI) | payer BC, MEDICARE ==
[~2019-08-30] MED LIST changes: +HOLD METFORMIN - RECEIVED CONTRAST 20 ML VIAL IV SCH; +IOHEXOL 350 MG/ML 100 ML (OMNIPAQUE 350) VIAL IV ONE; +NS 100 ML (IVPB) BAG IV ONE
[2019-08-30 07:37] LABS: ALANINE AMINOTRANSFERASE 17 U/L (0-55); ALKALINE PHOSPHATASE 63 U/L (40-136); BILIRUBIN,TOTAL 0.7 MG/DL (0.1-1.0); BUN/CREATININE RATIO 12; CALCIUM 9.4 MG/DL (8.5-10.1); CARBON DIOXIDE 18 MMOL/L (21-32); CHLORIDE 114 MMOL/L (98-107); CREATININE SERUM 0.85 MG/DL (0.60-1.30); GFR ESTIMATED > 60; GLUCOSE 99 MG/DL (70-105); POTASSIUM 4.6 MMOL/L (3.6-5.0); SODIUM 142 MMOL/L (135-145); TOTAL PROTEIN 6.8 GM/DL (6.4-8.2)
--- NOTE | 2019-08-30 08:46 | Diagnostic Imaging Report ---
EXAMINATION: CT Abdomen with and without intravenous contrast. TECHNIQUE: Precontrast acquisitions were acquired through the abdomen . Multiple contiguous axial images were obtained through the abdomen after the administration of intravenous contrast. All CT scans use one or more of the following dose optimizing techniques: automated exposure control, MA and/or KvP adjustment based on a patient size and exam type, or iterative reconstruction. HISTORY: Right renal cancer. COMPARISON: 08/11/2018 FINDINGS: Limited views of the lower thorax are unremarkable. Simple cyst is seen in segment IVb of the liver. There is a stable indeterminate 15 mm segment five six lesion. There is no biliary ductal dilation. Gallbladder is normal. Pancreas is normal. Spleen is normal. Adrenal glands are normal. A soft tissue attenuation nodule posterior to the right kidney measures 2.1 cm, previously 2.1 cm. No contrast enhancement is seen. The previously seen infiltrative tissue connecting this to the kidney is not as apparent. No enhancement is seen within this tissue. Visualized bowel is normal in caliber without obstruction or inflammation. No free fluid or air. No abdominal lymphadenopathy. Aorta is normal in caliber without aneurysm. There are no suspicious osseus lesions. IMPRESSION: 1. Stable size of a soft tissue nodule posterior to the right kidney. Shows no internal enhancement in the infiltrative tissue connecting this nodule to the kidney is no longer as apparent. This may represent a treated cancer. No new nodular areas of enhancement are seen to indicate progressive disease. Dictated by: Dictated on workstation # [id number]
== END ==
LOC: RAD 06:53
PROVIDERS: ATTEND Urology
DX: C64.1 Malignant neoplasm of right kidney, except renal pelvis (principal); N28.89 Other specified disorders of kidney and ureter
CPT/HCPCS: 36415; 74170; 80053

== ENCOUNTER 2019-12-04 13:38 | Outpatient (RCR) | payer BC, MEDICARE ==
[2019-09-11 14:19] LABS: BASOPHILS % (AUTO) 1 % (0-10); EOSINOPHILS # (AUTO) 0.1 10^3/uL (0.0-0.3); EOSINOPHILS % (AUTO) 3 % (0-10); HEMATOCRIT 35 % (35-52); HEMOGLOBIN 11.8 G/DL (11.5-16.0); LYMPHOCYTES # (AUTO) 0.9 X 10^3 (1.0-4.0); LYMPHOCYTES % (AUTO) 22 % (12-44); MEAN CORPUSCULAR HEMOGLOBIN 31 PG (25-34); MEAN CORPUSCULAR HGB CONC 33 G/DL (32-36); MEAN CORPUSCULAR VOLUME 93 FL (80-99); MEAN PLATELET VOLUME 9.3 FL (7.4-10.4); MONOCYTES # (AUTO) 0.4 X 10^3 (0.0-1.0); MONOCYTES % (AUTO) 11 % (0-12); NEUTROPHILS # (AUTO) 2.6 X 10^3 (1.8-7.8); NEUTROPHILS % (AUTO) 64 % (42-75); PLATELET COUNT 119 10^3/uL (130-400); WHITE BLOOD COUNT 4.1 10^3/uL (4.3-11.0)
[2019-09-11 14:41] LABS: ALANINE AMINOTRANSFERASE 15 U/L (0-55); ALBUMIN 3.8 GM/DL (3.2-4.5); ALKALINE PHOSPHATASE 56 U/L (40-136); BILIRUBIN,TOTAL 0.5 MG/DL (0.1-1.0); BUN/CREATININE RATIO 15; CALCIUM 9.7 MG/DL (8.5-10.1); CARBON DIOXIDE 25 MMOL/L (21-32); CHLORIDE 111 MMOL/L (98-107); GFR ESTIMATED > 60; GLUCOSE 90 MG/DL (70-105); POTASSIUM 4.1 MMOL/L (3.6-5.0); SODIUM 142 MMOL/L (135-145); TOTAL PROTEIN 6.4 GM/DL (6.4-8.2)
[~2019-12-04 13:38] MED LIST changes: -HOLD METFORMIN - RECEIVED CONTRAST 20 ML VIAL IV SCH; -IOHEXOL 350 MG/ML 100 ML (OMNIPAQUE 350) VIAL IV ONE; -NS 100 ML (IVPB) BAG IV ONE
[2019-12-04 14:08] LABS: BASOPHILS % (AUTO) 0 % (0-10); EOSINOPHILS # (AUTO) 0.1 10^3/uL (0.0-0.3); EOSINOPHILS % (AUTO) 3 % (0-10); HEMATOCRIT 36 % (35-52); HEMOGLOBIN 12.1 G/DL (11.5-16.0); LYMPHOCYTES % (AUTO) 24 % (12-44); MEAN CORPUSCULAR HEMOGLOBIN 31 PG (25-34); MEAN CORPUSCULAR HGB CONC 34 G/DL (32-36); MEAN CORPUSCULAR VOLUME 91 FL (80-99); MEAN PLATELET VOLUME 9.3 FL (7.4-10.4); MONOCYTES # (AUTO) 0.5 X 10^3 (0.0-1.0); MONOCYTES % (AUTO) 11 % (0-12); NEUTROPHILS # (AUTO) 2.6 X 10^3 (1.8-7.8); NEUTROPHILS % (AUTO) 62 % (42-75); PLATELET COUNT 126 10^3/uL (130-400); WHITE BLOOD COUNT 4.2 10^3/uL (4.3-11.0)
[2019-12-04 14:23] LABS: ALBUMIN 3.9 GM/DL (3.2-4.5); CHLORIDE 110 MMOL/L (98-107); SODIUM 141 MMOL/L (135-145)
[2019-12-04 14:24] LABS: CALCIUM 9.4 MG/DL (8.5-10.1)
[2019-12-04 14:25] LABS: GLUCOSE 83 MG/DL (70-105)
[2019-12-04 14:26] LABS: TOTAL PROTEIN 6.4 GM/DL (6.4-8.2)
[2019-12-04 14:27] LABS: BILIRUBIN,TOTAL 0.5 MG/DL (0.1-1.0); CARBON DIOXIDE 25 MMOL/L (21-32)
[2019-12-04 14:29] LABS: ALKALINE PHOSPHATASE 55 U/L (40-136); CREATININE SERUM 0.81 MG/DL (0.60-1.30); GFR ESTIMATED > 60
[2019-12-04 14:30] LABS: BUN/CREATININE RATIO 19
[2019-12-04 14:32] LABS: ALANINE AMINOTRANSFERASE 20 U/L (0-55)
== END 2019-12-10 | disposition home or self-care (01) ==
LOC: ONC 13:38
PROVIDERS: ATTEND Internal Medicine Hematology & Oncology
DX: C18.6 Malignant neoplasm of descending colon (principal); C18.7 Malignant neoplasm of sigmoid colon; D69.59 Other secondary thrombocytopenia; D50.9 Iron deficiency anemia, unspecified; D72.819 Decreased white blood cell count, unspecified; R16.1 Splenomegaly, not elsewhere classified; Z85.528 Personal history of other malignant neoplasm of kidney
CPT/HCPCS: 80053; 82378; 85025; G0463; 36591

== ENCOUNTER 2020-01-18 05:32 | Outpatient (RCR) | payer BC, MEDICARE ==
[~2020-01-18] VITALS: Ht 175.3 cm; Wt 68.2 kg
== END 2020-01-18 11:10 | disposition home or self-care (01) ==
LOC: PREOP 05:32
PROVIDERS: ATTEND Surgery
DX: Z01.812 Encounter for preprocedural laboratory examination (principal); Z20.828 Contact with and (suspected) exposure to other viral communicable diseases; Z85.038 Personal history of other malignant neoplasm of large intestine
CPT/HCPCS: 87635

== ENCOUNTER 2020-01-22 09:07 | Day surgery (SDC) | payer BC, MEDICARE ==
[~2020-01-22] VITALS: Ht 175.3 cm; Wt 68.2 kg
[2020-01-22] VITALS (9 sets, daily range): BP systolic 99–136; BP diastolic 55–75
[2020-01-22] MEDS ORDERED: LACTATED RINGERS 1,000 ML IV ONE (09:12)
[2020-01-22] MEDS ORDERED: LACTATED RINGERS 1,000 ML IV STA (09:15)
[2020-01-22] MEDS ORDERED: PROPOFOL INJECTION 50 ML IV ONE (10:15)
--- NOTE | 2020-01-22 11:00 | Progress Note-Post Operative ---
Post-Operative Progess Note Surgeon (s)/Crabbing Machine Operator (s) Surgeon MARICHUY IGLL DO Crabbing Machine Operator: na Pre-Operative Diagnosis history colon ca Post-Operative Diagnosis ileocolonic anastamosis minimal inflammation Procedure & Operative Findings Date of Procedure 01/22/20 Procedure Performed/Findings colonoscopy c cold biopsies Anesthesia Type per [facility] Estimated Blood Loss Estimated blood loss (mL): scant Specimens/Packing Specimens Removed ileocolonic anastamosis MARICHUY GILL DO Jan 22, 2020 11:00
--- NOTE | 2020-01-22 11:01 | Discharge Inst-Simple/Standard ---
Discharge Inst-Standard Patient Instructions/Follow Up Plan of Care/Instructions/FU: 2 weeks Harvey Activity as Tolerated: Yes Discharge Diet: Regular Diet MARICHUY GILL DO Jan 22, 2020 11:01
--- NOTE | 2020-01-22 13:55 | OPERATIVE REPORT ---
DATE OF SERVICE: 01/22/2020 PREOPERATIVE DIAGNOSIS: History of colon cancer. POSTOPERATIVE DIAGNOSIS: Ileocolonic anastomosis minimal inflammation. PROCEDURES PERFORMED: Colonoscopy with cold biopsy. SURGEON: Marichuy Gabriel DO. ANESTHESIA: Per MDA. ESTIMATED BLOOD LOSS: Scant. COMPLICATIONS: None. SPECIMENS: Ileocolonic anastomosis. INDICATIONS: The patient is a 74-year-old female with history of colon cancer. She understands risks and benefits of procedure and wished to proceed with procedure. Consent was signed in the chart. DESCRIPTION OF PROCEDURE: The patient was taken to the endoscopy suite and placed in the left lateral recumbent position. Timeout was performed. Digital rectal exam was performed. There were no palpable polyps, masses or ulcerations. Scope was inserted in the rectum, advanced all the way to the ileocolonic anastomosis and had some slight inflammation there. A cold biopsy of this area was obtained. No other pathology noted. Scope was then slowly retracted back. There were no polyps, masses or ulcerations from the ileocolonic anastomosis all the way down to the rectum, scope was retroflexed in the rectum, noting no other pathology. Scope was returned to its normal position, slowly withdrawn until completely removed. The patient tolerated procedure well without any complications. RECOMMENDATIONS: The patient will follow up in the office in 2 weeks to discuss pathology results. Any issues before that be seen at that time. The patient will follow up and repeat colonoscopy at the interval of 1, 3 and 5 years post colon resection. Job ID: [id number] DocumentID: [id number] Dictated Date: 01/22/2020 11:03:46 Clearance Center Manager Date: 01/22/2020 13:54:26 Dictated By: MARICHUY GABRIEL DO
--- NOTE | 2020-01-22 14:21 | Anesthesia-General Post-Op ---
MAC Patient Condition Mental Status/LOC: Same as Preop Cardiovascular: Satisfactory Nausea/Vomiting: Absent Respiratory: Satisfactory Pain: Controlled Complications: Absent Post Op Complications Complications None Follow Up Care/Instructions Patient Instructions None needed. Anesthesiology Discharge Order Discharge Order Patient was seen this morning after the procedure and she was doing well, no complaints, stable vital signs, no apparent adverse anesthesia problems. FLORIN CHANEY DO Jan 22, 2020 14:21
== END 2020-01-22 11:52 | disposition home or self-care (01) ==
LOC: ENDO 09:07
PROVIDERS: ATTEND Surgery
DX: Z85.038 Personal history of other malignant neoplasm of large intestine (principal); K91.89 Other postprocedural complications and disorders of digestive system; Z85.528 Personal history of other malignant neoplasm of kidney; Z83.3 Family history of diabetes mellitus; Z82.49 Family history of ischemic heart disease and other diseases of the circulatory system
CPT/HCPCS: 88304

== ENCOUNTER 2020-02-20 13:36 | Inpatient (IN) | payer BC, MEDICARE ==
[~2020-02-20] VITALS: Ht 180.3 cm; Wt 82.8 kg
[2020-02-20] VITALS (8 sets, daily range): BP systolic 116–129; BP diastolic 62–73
--- NOTE | 2020-02-20 14:29 | ED Respiratory ---
General Chief Complaint: Respiratory Problems Stated Complaint: COVID 19, WORSENING SYMPTOMS Nursing Triage Note: Pt to ED in wheelchair. Pt c/o hypoxia and feeling SOB. Pt reporst symptoms began last Tuesday and pt was dx with COVID last Tuesday. Pt's O2 72% on room air upon arrival to ED. Source: patient Exam Limitations: no limitations History of Present Illness Date Seen by Provider: Feb 20, 2020 Time Seen by Provider: 14:15 Initial Comments Patient is a 74-year-old female who presents to the emergency department with a chief complaint of shortness of breath. Patient states that her symptoms began a week and a half ago. She was ultimately diagnosed with Covid on Tuesday of last week. Patient states that she has been tolerating oxygen levels down to 84 to 86% at home and thought she was doing well until she woke up this morning so weak that she really could not function. On presentation the patient arrives in a wheelchair, with oxygen saturations on room air at 72%. She has significant cough with any deep breath. She also endorses recurrent fevers and chills. She denies sore throat, headache, any or GI symptoms. No sick contacts at home, she lives alone. All other review of systems reviewed and negative except as stated above. Timing/Duration: week, getting worse Severity: severe Modifying Factors: Improves With Coughing Associated Symptoms: cough, dizziness, fever/chills, lightheadedness, muscle aches, nasal congestion, shortness of breath Allergies and Home Medications Allergies Coded Allergies: No Known Drug Allergies (Unverified , 06/17/16) Home Medications Multivitamin 1 Each Tablet, 1 EACH PO DAILY, (Reported) Patient Home Medication List Home Medication List Reviewed: Yes Review of Systems Review of Systems Constitutional: fever, malaise, weakness EENTM: no symptoms reported Respiratory: cough, short of breath Cardiovascular: no symptoms reported Gastrointestinal: no symptoms reported Genitourinary: no symptoms reported Musculoskeletal: no symptoms reported Skin: no symptoms reported Psychiatric/Neurological: No Symptoms Reported All Other Systems Reviewed Negative Unless Noted: Yes Past Raeooby-Yxqdri-Yewmcr Hx Patient Social History Alcohol Use: Denies Use Recreational Drug Use: No Smoking Status: Former Smoker Type Used: Cigarettes Former Smoker, Quit: Jun 17, 1977 2nd Hand Smoke Exposure: No Recent Foreign Travel: No Contact w/Someone Who Travel: No Recent Infectious Disease Expo: No Recent Hopitalizations: No Immunizations Up To Date Tetanus Booster (TDap): Unknown PED Vaccines UTD: No Date of Pneumonia Vaccine: Jan 09, 2016 Date of Influenza Vaccine: Dec 20, 2019 Seasonal Allergies Seasonal Allergies: No Past Medical History Surgeries: Yes (colon resection X2, port, RIGHT KIDNEY ABLATION, colon blockage) Abdominal, Adenoidectomy, Tonsillectomy Respiratory: No Currently Using CPAP: No Currently Using BIPAP: No Cardiac: No Neurological: No Reproductive Disorders: No Sexually Transmitted Disease: No HIV/AIDS: No Genitourinary: Yes (KIDNEY ABLATION-CANCER 2019) Gastrointestinal: Yes (COLON CANCER DX 2016) Musculoskeletal: No Endocrine: No HEENT: Yes (READING GLASSES, DENTURES) Loss of Vision: Denies Hearing Impairment: Denies Cancer: Yes Colon, Kidney Did You Recieve Any Treatments: Yes What Type of Treatment Did You: Chemotherapy, Surgical Intervention Psychosocial: No Integumentary: No Blood Disorders: No Adverse Reaction/Blood Tranf: No (N/A) Family Medical History Hypertension 19 MOTHER No Pertinent Family Hx Physical Exam Vital Signs - First Documented 02/20/20 02/20/20 13:50 14:10 Temp 36.8 Pulse 63 Resp 28 B/P (MAP) 120/63 (82) Pulse Ox 72 O2 Delivery Room Air O2 Flow Rate 10.00 Capillary Refill : Less Than 3 Seconds Height: 5'10.00" Weight: 168lbs. 0.0oz. 76.963361bp; 20.00 BMI Method:Stated General Appearance: WD/WN, mild distress Eyes: Bilateral Eye Normal Inspection, Bilateral Eye PERRL, Bilateral Eye EOMI Neck: full range of motion, supple Respiratory: no respiratory distress, no accessory muscle use, crackles (Bilateral crackles posteriorly) Cardiovascular: regular rate, rhythm Gastrointestinal: normal bowel sounds, non tender, soft Extremities: non-tender, normal inspection, no pedal edema Neurologic/Psychiatric: no motor/sensory deficits, alert, normal mood/affect, oriented x 3 Skin: normal color, warm/dry Focused Exam Lactate Level 02/20/20 14:00: Lactic Acid Level 1.80 Lactic Acid Level Laboratory Tests Test 02/20/20 14:00 Lactic Acid Level 1.80 MMOL/L (0.50-2.00) Progress/Results/Core Measures Suspected Sepsis Recent Fever Within 48 Hours: Yes Infection Criteria Present: Suspected New Infection New/Unexplained Altered Menta: No Sepsis Screen: Possible Severe Sepsis Risk SIRS Temperature: Pulse: 63 Respiratory Rate: 28 Laboratory Tests 02/20/20 14:00: White Blood Count 8.6 Blood Pressure 120 /63 Mean: 82 02/20/20 14:00: Lactic Acid Level 1.80 Laboratory Tests 02/20/20 14:00: Creatinine 0.82, INR Comment 1.1, Platelet Count 286, Total Bilirubin 0.4 Results/Orders Lab Results Laboratory Tests Test 02/20/20 14:00 Range/Units White Blood Count 8.6 4.3-11.0 10^3/uL Red Blood Count 3.71 L 3.80-5.11 10^6/uL Hemoglobin 11.7 11.5-16.0 g/dL Hematocrit 35 35-52 % Mean Corpuscular Volume 94 80-99 fL Mean Corpuscular Hemoglobin 32 25-34 pg Mean Corpuscular Hemoglobin Concent 34 32-36 g/dL Red Cell Distribution Width 13.0 10.0-14.5 % Platelet Count 286 130-400 10^3/uL Mean Platelet Volume 9.6 9.0-12.2 fL Immature Granulocyte % (Auto) 6 % Neutrophils (%) (Auto) 84 H 42-75 % Lymphocytes (%) (Auto) 5 L 12-44 % Monocytes (%) (Auto) 5 0-12 % Eosinophils (%) (Auto) 0 0-10 % Basophils (%) (Auto) 0 0-10 % Neutrophils # (Auto) 7.2 1.8-7.8 10^3/uL Lymphocytes # (Auto) 0.4 L 1.0-4.0 10^3/uL Monocytes # (Auto) 0.4 0.0-1.0 10^3/uL Eosinophils # (Auto) 0.0 0.0-0.3 10^3/uL Basophils # (Auto) 0.0 0.0-0.1 10^3/uL Immature Granulocyte # (Auto) 0.6 H 0.0-0.1 10^3/uL Neutrophils % (Manual) 90 % Lymphocytes % (Manual) 4 % Monocytes % (Manual) 4 % Myelocytes % 1 % Band Neutrophils 1 % Nucleated Red Blood Cells 1 Hypersegmented Neutrophils SLIGHT Polychromasia SLIGHT Blood Morphology Comment Prothrombin Time 14.1 12.2-14.7 SEC INR Comment 1.1 0.8-1.4 Activated Partial Thromboplast Time 27 24-35 SEC D-Dimer 2.13 H 0.00-0.49 UG/ML Sodium Level 140 135-145 MMOL/L Potassium Level 4.5 3.6-5.0 MMOL/L Chloride Level 107 98-107 MMOL/L Carbon Dioxide Level 21 21-32 MMOL/L Anion Gap 12 5-14 MMOL/L Blood Urea Nitrogen 25 H 7-18 MG/DL Creatinine 0.82 0.60-1.30 MG/DL Estimat Glomerular Filtration Rate > 60 BUN/Creatinine Ratio 30 Glucose Level 119 H 70-105 MG/DL Lactic Acid Level 1.80 0.50-2.00 MMOL/L Calcium Level 8.8 8.5-10.1 MG/DL Corrected Calcium 9.5 8.5-10.1 MG/DL Total Bilirubin 0.4 0.1-1.0 MG/DL Aspartate Amino Transf (AST/SGOT) 68 H 5-34 U/L Alanine Aminotransferase (ALT/SGPT) 79 H 0-55 U/L Alkaline Phosphatase 102 40-136 U/L Troponin I < 0.028 <0.028 NG/ML C-Reactive Protein High Sensitivity 7.74 H 0.00-0.50 MG/DL Total Protein 6.3 L 6.4-8.2 GM/DL Albumin 3.1 L 3.2-4.5 GM/DL My Orders Orders - CYDNEY NARANJO MD Vital Signs: Every 4 Hours (Or (02/20/20 14:30) Monitor-Rhythm Ecg Trace Only (02/20/20 14:30) Cbc With Automated Diff (02/20/20 14:30) Comprehensive Metabolic Panel (02/20/20 14:30) Hs C Reactive Protein (02/20/20 14:30) Troponin I (02/20/20 14:30) Lactic Acid Analyzer (02/20/20 14:30) Protime With Inr (02/20/20 14:30) Partial Thromboplastin Time (02/20/20 14:30) Ekg Tracing (02/20/20 14:30) Chest 1 View, Ap/Pa Only (02/20/20 14:30) Ns Iv 1000 Ml (Sodium Chloride 0.9%) (02/20/20 14:30) Fibrin Degradation Products (02/20/20 14:30) Albuterol/Ipra Inhalation Soln (Duoneb I (02/20/20 14:30) Manual Differential (02/20/20 14:00) Albuterol Inhaler (Ventolin Hfa) (02/20/20 14:45) Dexamethasone Injection (Decadron Inje (02/20/20 15:32) Medications Given in ED Current Medications Medications Dose Ordered Sig/Rashaun Route Start Time Stop Time Status Last Admin Dose Admin Albuterol Sulfate 18 gm STK-MED ONCE IH 02/20/20 14:45 02/20/20 14:49 DC 02/20/20 14:53 18 GM Vital Signs/I&O 02/20/20 02/20/20 13:50 14:10 Temp 36.8 Pulse 63 Resp 28 B/P (MAP) 120/63 (82) Pulse Ox 72 98 O2 Delivery Room Air OxyMask O2 Flow Rate 10.00 Capillary Refill : Less Than 3 Seconds Blood Pressure Mean: 82 Progress Note : Time: 15:39 Progress Note 74-year-old female presents to the emergency department hypoxic with coronavirus. Evaluation today includes a physical exam, CBC, CMP, lactic acid, D-dimer, CRP, EKG troponin and chest x-ray. Patient is noted to have bilateral patchy infiltrates on chest x-ray consistent with pneumonia secondary to coronavirus. Her labs show elevated CRP with mildly elevated D-dimer. The rest of her labs are grossly within normal limits. Patient is requiring continuous oxygen supplementation up to 10 L at presentation currently down to 5 to 6 L to maintain oxygen saturations above 90%. Patient is given Decadron 6 mg IV here in the emergency department. Case discussed with Dr. Crisostomo on for the hospitalist service. Requests convalescent plasma protocol to be started. Patient is comfortable with the plan of care which includes admission at this time to the medical floor. All questions are sought and answered. Critical Care Note Critical Care Start Time: 13:50 Stop Time: 15:30 Total Time (minutes) 45 minutes of critical care time including the evaluation and management of this patient with profound hypoxia related to coronavirus infection. Time includes evaluation and management of the patient, review of laboratory studies and chest x-ray, discussion with admitting physician; discussion with family members Departure Communication (Admissions) Time/Spoke to Admitting Phy: 15:[address] Staton who accepts patient for admission Impression Primary Impression: Hypoxia Additional Impressions: Pneumonia Qualified Codes: J18.9 - Pneumonia, unspecified organism Coronavirus infection Disposition: ADMITTED INPATIENT Condition: Stable Admissions Decision to Admit Reason: Admit from ER (General) Decision to Admit/Date: Feb 20, 2020 Time/Decision to Admit Time: 15:44 Departure-Patient Inst. Referrals: NO,LOCAL PHYSICIAN (PCP/Family) Primary Care Physician CYDNEY NARANJO MD Feb 20, 2020 14:29
[2020-02-20] MEDS ORDERED: NS IV 1000 ML 1,000 ML IV SCH (14:30)
[2020-02-20] MEDS ORDERED: RT-ALBUTEROL/IPRATROPIUM 3 ML (DUONEB) VIAL IH PRN (14:30)
--- NOTE | 2020-02-20 14:34 | NUR ---
Pt reports O2 levels have been 84%-86% for several days. Pt educated on appropriate O2 levels and when to seek medical attention.
[2020-02-20 14:42] LABS: BASOPHILS % (AUTO) 0 % (0-10); EOSINOPHILS % (AUTO) 0 % (0-10); HEMATOCRIT 35 % (35-52); HEMOGLOBIN 11.7 g/dL (11.5-16.0); LYMPHOCYTES # (AUTO) 0.4 10^3/uL (1.0-4.0); LYMPHOCYTES % (AUTO) 5 % (12-44); MEAN CORPUSCULAR HEMOGLOBIN 32 pg (25-34); MEAN CORPUSCULAR HGB CONC 34 g/dL (32-36); MEAN CORPUSCULAR VOLUME 94 fL (80-99); MEAN PLATELET VOLUME 9.6 fL (9.0-12.2); MONOCYTES # (AUTO) 0.4 10^3/uL (0.0-1.0); MONOCYTES % (AUTO) 5 % (0-12); NEUTROPHILS # (AUTO) 7.2 10^3/uL (1.8-7.8); NEUTROPHILS % (AUTO) 84 % (42-75); PLATELET COUNT 286 10^3/uL (130-400); WHITE BLOOD COUNT 8.6 10^3/uL (4.3-11.0)
[2020-02-20] MEDS ORDERED: RT-ALBUTEROL INHALER HFA (VENTOLIN HFA) 18 GM IH ONE (14:45)
[2020-02-20 14:48] LABS: ALBUMIN 3.1 GM/DL (3.2-4.5); CHLORIDE 107 MMOL/L (98-107); POTASSIUM 4.5 MMOL/L (3.6-5.0); SODIUM 140 MMOL/L (135-145)
[2020-02-20 14:49] LABS: CALCIUM 8.8 MG/DL (8.5-10.1)
[2020-02-20 14:50] LABS: FIBRIN DEGRADATION PRODUCTS 2.13 UG/ML (0.00-0.49); GLUCOSE 119 MG/DL (70-105); INR 1.1 (0.8-1.4); PROTHROMBIN TIME PATIENT 14.1 SEC (12.2-14.7)
[2020-02-20 14:51] LABS: TOTAL PROTEIN 6.3 GM/DL (6.4-8.2)
[2020-02-20 14:52] LABS: BILIRUBIN,TOTAL 0.4 MG/DL (0.1-1.0); CARBON DIOXIDE 21 MMOL/L (21-32)
[2020-02-20 14:54] LABS: ALKALINE PHOSPHATASE 102 U/L (40-136); CREATININE SERUM 0.82 MG/DL (0.60-1.30); GFR ESTIMATED > 60
[2020-02-20 14:55] LABS: BUN/CREATININE RATIO 30
[2020-02-20 14:57] LABS: ALANINE AMINOTRANSFERASE 79 U/L (0-55)
--- NOTE | 2020-02-20 15:03 | Diagnostic Imaging Report ---
INDICATION: Shortness of breath and hypoxia. Frontal chest obtained at 2:45 p.m. and compared to 02/08/2018. There is cardiomegaly. There is increased central vascular congestion with some mild residual edema. There is some patchy bibasilar infiltrate. There is no pneumothorax or gross pleural fluid. Right-sided Port-A-Cath is unchanged. IMPRESSION: Increased cardiomegaly compared to the prior study with increased central vascular congestion and borderline interstitial edema. There is some mild patchy bibasilar infiltrate which is new. There is no pneumothorax or gross pleural fluid. Dictated by: Dictated on workstation # [id number]
[2020-02-20 15:22] LABS: BAND NEUTROPHILS 1 %; LYMPHOCYTES % (MANUAL) 4 %; MONOCYTES % (MANUAL) 4 %; MYELOCYTES % 1 %; NEUTROPHILS % (MANUAL) 90 %; NUCLEATED RED BLOOD CELLS 1
[2020-02-20 15:23] LABS: HYPERSEGMENTED NEUT SLIGHT; POLYCHROMASIA SLIGHT
[2020-02-20] MEDS ORDERED: RT-ALBUTEROL INHALER HFA (VENTOLIN HFA) 18 GM IH PRN ×3 (17:30→21:15)
[2020-02-20] MEDS ORDERED: CATHETER FLUSH 10 ML SYR IV PRN (17:30)
[2020-02-20] MEDS: NS IV 1000 ML 1,000 ML IV SCH (19:11)
--- NOTE | 2020-02-20 21:02 | NUR ---
ALBUTEROL 4PUFFS Q4 AND Q2 PRN. IS QID. INITIATE 02 4-6L TO KEEP SATS GREATER THAN 90%.RT TO REASSESS OR REEVALUATE IN 72 HOURS OR NEEDED Addendum: 02/20/20 at 2103 by YOVANY DA SILVA RT Amended: Links added.
[2020-02-21] MEDS: RT-ALBUTEROL INHALER HFA (VENTOLIN HFA) 18 GM IH SCH ×4 (02:17→19:18)
[2020-02-21] MEDS: IPRATROPIUM INHALER (ATROVENT) 12.9 GM INH SCH ×4 (02:20→19:18)
--- NOTE | 2020-02-21 03:00 | NUR ---
RT notified of decreasing O2 saturation on HI Brodie nasal cannula (unable to maintain saturation over 90%). RT made decision to place patient on Vapotherm at 30L and 70%. will continue to monitor pt and o2 saturation.
[2020-02-21 03:30] VITALS: BP 126/75
[2020-02-21] MEDS: NS IV 1000 ML 1,000 ML IV SCH (03:50)
[2020-02-21 05:22] LABS: BASOPHILS % (AUTO) 0 % (0-10); EOSINOPHILS % (AUTO) 0 % (0-10); HEMATOCRIT 32 % (35-52); HEMOGLOBIN 10.4 g/dL (11.5-16.0); LYMPHOCYTES # (AUTO) 0.6 10^3/uL (1.0-4.0); LYMPHOCYTES % (AUTO) 6 % (12-44); MEAN CORPUSCULAR HEMOGLOBIN 30 pg (25-34); MEAN CORPUSCULAR HGB CONC 33 g/dL (32-36); MEAN CORPUSCULAR VOLUME 92 fL (80-99); MONOCYTES # (AUTO) 0.5 10^3/uL (0.0-1.0); MONOCYTES % (AUTO) 6 % (0-12); NEUTROPHILS # (AUTO) 7.1 10^3/uL (1.8-7.8); NEUTROPHILS % (AUTO) 82 % (42-75); PLATELET COUNT 247 10^3/uL (130-400); WHITE BLOOD COUNT 8.7 10^3/uL (4.3-11.0)
[2020-02-21 05:37] LABS: ALBUMIN 2.8 GM/DL (3.2-4.5)
[2020-02-21 05:38] LABS: CHLORIDE 109 MMOL/L (98-107); POTASSIUM 4.1 MMOL/L (3.6-5.0); SODIUM 139 MMOL/L (135-145)
[2020-02-21 05:39] LABS: CALCIUM 7.9 MG/DL (8.5-10.1)
[2020-02-21 05:40] LABS: GLUCOSE 103 MG/DL (70-105); TOTAL PROTEIN 5.5 GM/DL (6.4-8.2)
[2020-02-21 05:41] LABS: CARBON DIOXIDE 20 MMOL/L (21-32)
[2020-02-21 05:42] LABS: BILIRUBIN,TOTAL 0.4 MG/DL (0.1-1.0)
[2020-02-21 05:43] LABS: ALKALINE PHOSPHATASE 82 U/L (40-136)
[2020-02-21 05:44] LABS: CREATININE SERUM 0.65 MG/DL (0.60-1.30); GFR ESTIMATED > 60
[2020-02-21 05:45] LABS: BUN/CREATININE RATIO 28
[2020-02-21 05:46] LABS: ALANINE AMINOTRANSFERASE 56 U/L (0-55)
--- NOTE | 2020-02-21 07:15 | NUR ---
Dr. Staton updated on pt requiring Vapotherm around 0300 due to decreasing saturation on Hi negrita nasal cannula. also informed of O2 saturation decreasing during any activity or exertion. Bladder scan shows residual of 586 mls. New order rec to place starr catheter.
[2020-02-21 08:00] VITALS: BP 145/67
[2020-02-21 08:07] LABS: BAND NEUTROPHILS 5 %; LYMPHOCYTES % (MANUAL) 6 %; METAMYELOCYTES % 2 %; MONOCYTES % (MANUAL) 3 %; NEUTROPHILS % (MANUAL) 84 %; RBC MORPH NORMAL; TOXIC GRANULATION/VACUOLAZATIO 2+
[2020-02-21 12:00] VITALS: BP 123/57
[2020-02-21] MEDS ORDERED: ANTACID SUSP 30 ML UDC (MYLANTA) PO PRN (14:00)
[2020-02-21] MEDS ORDERED: ONDANSETRON 4 MG/2 ML (SDV) Z0FRAN IV PRN (14:00)
[2020-02-21] MEDS ORDERED: BENZONATATE 100 MG (TESSALON) CAPSULE PO PRN (14:00)
[2020-02-21] MEDS ORDERED: REMDESIVIR INJ 200 MG in NS (IVPB) 210 ML IV NR (14:00)
[2020-02-21] MEDS ORDERED: MILK OF MAGNESIA 400 MG/5 ML 30 ML UDC PO PRN (14:00)
[2020-02-21] MEDS ORDERED: NS IV 1000 ML 1,000 ML ONE (14:06)
--- NOTE | 2020-02-21 14:06 | History & Physical-Hospitalist ---
History of Present Illness HPI/Chief Complaint Pt is a 74yoCF with a PMH of colon cancer s/p resection in 2017 who presented to the ER due to hypoxia. She was diagnosed with COVID a week and a day ago and had been monitoring her symptoms at home and was running around 85% and was tolerating it so thought she was doing well. She continued to feel more weak though so decided to seek evaluation in the ER and on arrival had a sat of 72%. She was placed on 10lpm in the ER and was able to be titrated down to ~6lpm and was admitted to the floor. Overnight she became more hypoxic and was started on vapotherm. Since being on Vapotherm she states she feels better and is breathing easier. Her only other complaint is being tired from being up most of the night. Source: patient Date Seen 02/21/20 Time Seen by a Provider: 13:44 Attending Physician Simón Staton MD PCP No,Local Physician Referring Physician Date of Admission Feb 20, 2020 at 15:36 Home Medications & Allergies Home Medications Reviewed patient Home Medication Reconciliation performed by pharmacy medication reconciliations carpet cleaning technician and/or nursing. Patients Allergies have been reviewed. Allergies Allergies Coded Allergies No Known Drug Allergies (Unverified06/17/16) Past Yesyrit-Jwachc-Rmlkxk Hx Past Med/Social Hx: Reviewed Nursing Past Med/Soc Hx Patient Social History Alcohol Use: Denies Use Recreational Drug Use: No Smoking Status: Former Smoker Former Smoker, Quit: Jun 17, 1977 Type Used: Cigarettes 2nd Hand Smoke Exposure: No Recent Foreign Travel: No Contact w/other who traveled: No Recent Hopitalizations: No Recent Infectious Disease Expo: No Immunizations Up To Date Tetanus Booster (TDap): Unknown Pediatric: No Date of Pneumonia Vaccine: Dec 21, 2019 Date of Influenza Vaccine: Jan 19, 2020 Seasonal Allergies Seasonal Allergies: No Past Medical History Surgeries: Abdominal, Adenoidectomy, Tonsillectomy Currently Using CPAP: No Currently Using BIPAP: No Reproductive: No Sexually Transmitted Disease: No HIV/AIDS: No Loss of Vision: Denies Hearing Impairment: Denies Cancer: Colon, Kidney Did You Recieve Any Treatments: Yes What Type of Treatment Did You: Chemotherapy, Surgical Intervention History of Blood Disorders: No Adverse Reaction to Blood Shah: No (N/A) Family History Reviewed Nursing Family Hx Hypertension 19 MOTHER, Onset:Unknown No Pertinent Family Hx Review of Systems Constitutional: chills, fever, malaise, weakness EENTM: No hoarseness, No throat pain Respiratory: cough, dyspnea on exertion, short of breath Cardiovascular: No chest pain, No edema Gastrointestinal: No abdominal pain; diarrhea; No nausea, No vomiting Genitourinary: no symptoms reported Musculoskeletal: muscle weakness Skin: no symptoms reported Psychiatric/Neurological: Headache Physical Exam Physical Exam Vital Signs Vital Signs - First Documented 02/20/20 02/20/20 02/20/20 13:50 14:10 20:49 Temp 36.8 Pulse 63 Resp 28 B/P (MAP) 120/63 (82) Pulse Ox 72 O2 Delivery Room Air O2 Flow Rate 10.00 FiO2 21 Capillary Refill : Less Than 3 Seconds Height, Weight, BMI Height: 5'10.00" Weight: 168lbs. 0.0oz. 76.245105re; 20.76 BMI Method:Stated General Appearance: No Apparent Distress, Chronically ill HEENT: PERRL/EOMI, Moist Mucous Membranes Neck: Normal Inspection, Supple Respiratory: No Accessory Muscle Use; No Crackles; Decreased Breath Sounds; No Wheezing; Other (on Vapotherm) Cardiovascular: Regular Rate, Rhythm, No Murmur Gastrointestinal: Normal Bowel Sounds, Non Tender, Soft Extremity: Normal Capillary Refill, No Calf Tenderness, No Pedal Edema Neurologic/Psychiatric: Alert, Oriented x3 Results Results/Procedures Labs Laboratory Tests 02/21/20 05:12 02/22/20 05:35 Patient resulted labs reviewed. Imaging: Reviewed Imaging Report Imaging [facility] [place] NAME: EDWIN TAMAYO [facility] REC#: [id number] PT STATUS: ADM IN : 1945 PHYSICIAN: CYDNEY NARANJO MD ADMIT DATE: 02/20/20 Signed Date of Exam:02/20/20 CHEST 1 VIEW, AP/PA ONLY INDICATION: Shortness of breath and hypoxia. Frontal chest obtained at 2:45 p.m. and compared to 02/08/2018. There is cardiomegaly. There is increased central vascular congestion with some mild residual edema. There is some patchy bibasilar infiltrate. There is no pneumothorax or gross pleural fluid. Right-sided Port-A-Cath is unchanged. IMPRESSION: Increased cardiomegaly compared to the prior study with increased central vascular congestion and borderline interstitial edema. There is some mild patchy bibasilar infiltrate which is new. There is no pneumothorax or gross pleural fluid. Dictated by: Dictated on workstation # [id number] Dict: 02/20/20 1500 Trans: 02/20/20 1723 CVB [id number] Interpreted by: JENNY MCBRIDE MD Electronically signed by: JENNY MCBRIDE MD 02/20/20 1723 Assessment/Plan Admission Diagnosis Acute hypoxic respiratory failure Admission Status: Inpatient Order (span 2 midnights) Reason for Inpatient Admission: see below Assessment and Plan Acute hypoxic respiratory failure due to COVID19 Currently on vapotherm, low threshold for transfer to ICU if setting increase Start remdesivir s/p convalescent plasma, EUA status discussed with patient in ER continue decadron MAT protocol Lovenox Tessalon for cough transaminitis improved today, trend with remdesivir history of colon cancer s/p resection no acute management needs DVT ppx: Lovenox Diagnosis/Problems Diagnosis/Problems (1) Transaminitis (2) Coronavirus infection Status: Acute (3) History of colon cancer (4) S/P colectomy Status: Acute (5) Acute respiratory failure Qualifiers: Respiratory failure complication: hypoxia Qualified Codes: J96.01 - Acute respiratory failure with hypoxia Clinical Quality Measures DVT/VTE Risk/Contraindication: Risk Factor Score Per Nursin RFS Level Per Nursing on Admit: 4+=Very High SIMÓN STATON MD Feb 21, 2020 14:05
[2020-02-21] MEDS ORDERED: ENOXAPARIN 40 MG/0.4 ML (LOVENOX) SYR SQ SCH (14:30)
--- NOTE | 2020-02-21 14:30 | NUR ---
PT GAVE VERBAL CONSENT FOR REMDESIVIR.
[2020-02-21] MEDS: ENOXAPARIN 40 MG/0.4 ML (LOVENOX) SYR SQ SCH (15:00)
[2020-02-21 16:07] VITALS: BP 112/60
--- NOTE | 2020-02-21 18:47 | NUR ---
PT PLACED IN PRONE POSITION AT THIS TIME
[2020-02-21 19:34] VITALS: BP 114/64
[2020-02-22] VITALS (7 sets, daily range): BP systolic 104–136; BP diastolic 55–75
[2020-02-22] MEDS: IPRATROPIUM INHALER (ATROVENT) 12.9 GM INH SCH ×4 (03:42→22:15)
[2020-02-22] MEDS: RT-ALBUTEROL INHALER HFA (VENTOLIN HFA) 18 GM IH SCH ×10 (03:42→22:17)
[2020-02-22 05:53] LABS: HEMOGLOBIN 12.2 g/dL (11.5-16.0); MEAN PLATELET VOLUME 9.1 fL (9.0-12.2); WHITE BLOOD COUNT 14.1 10^3/uL (4.3-11.0)
[2020-02-22 06:14] LABS: ALBUMIN 2.7 GM/DL (3.2-4.5); CHLORIDE 110 MMOL/L (98-107); POTASSIUM 3.9 MMOL/L (3.6-5.0); SODIUM 140 MMOL/L (135-145)
[2020-02-22 06:15] LABS: CALCIUM 8.2 MG/DL (8.5-10.1)
[2020-02-22 06:16] LABS: GLUCOSE 89 MG/DL (70-105); TOTAL PROTEIN 5.5 GM/DL (6.4-8.2)
[2020-02-22 06:17] LABS: CARBON DIOXIDE 20 MMOL/L (21-32)
[2020-02-22 06:18] LABS: BILIRUBIN,TOTAL 0.4 MG/DL (0.1-1.0)
[2020-02-22 06:20] LABS: ALKALINE PHOSPHATASE 81 U/L (40-136); CREATININE SERUM 0.63 MG/DL (0.60-1.30); GFR ESTIMATED > 60
[2020-02-22 06:21] LABS: BUN/CREATININE RATIO 19
[2020-02-22 06:23] LABS: ALANINE AMINOTRANSFERASE 43 U/L (0-55)
[2020-02-22] MEDS ORDERED: cefTRIAXone FOR IV USE 1,000 MG in WATER (STERILE) FOR INJECTION 10 ML IV SCH (09:00)
--- NOTE | 2020-02-22 11:20 | Progress Note - Hospitalist ---
Subjective HPI/CC On Admission Date Seen by Provider: Feb 22, 2020 Time Seen by Provider: 11:17 Pt is a 74yoCF with a PMH of colon cancer s/p resection in 2017 who presented to the ER due to hypoxia. She was diagnosed with COVID a week and a day ago and had been monitoring her symptoms at home and was running around 85% and was tole rating it so thought she was doing well. She continued to feel more weak though so decided to seek evaluation in the ER and on arrival had a sat of 72%. She was placed on 10lpm in the ER and was able to be titrated down to ~6lpm and was admitted to the floor. Overnight she became more hypoxic and was started on vapotherm. Since being on Vapotherm she states she feels better and is breathing easier. Her only other complaint is being tired from being up most of the night. Subjective/Events-last exam Pt reports doing better today. No complaints. Laying supine and sat was 99% when I entered room on 35lpm 100% Fio2. I turned her down to 90% and she maintained at 97%. Focused Exam Lactate Level 02/20/20 14:00: Lactic Acid Level 1.80 Objective Exam Vital Signs Vital Signs Date Time Temp Pulse Resp B/P (MAP) Pulse Ox O2 Delivery O2 Flow Rate FiO2 02/22/20 08:11 36.6 60 20 123/65 (84) 94 Vapotherm 35.00 100.00 02/21/20 22:48 70 Capillary Refill : Less Than 3 Seconds General Appearance: No Apparent Distress, Chronically ill Respiratory: No Accessory Muscle Use, Decreased Breath Sounds; No Wheezing; Other (on Vapotherm) Gastrointestinal: Normal Bowel Sounds, Non Tender, Soft Neurologic/Psychiatric: Alert, Oriented x3 Results/Procedures Lab Laboratory Tests 02/22/20 05:35 Patient resulted labs reviewed. Imaging: Reviewed Imaging Report Assessment/Plan Assessment and Plan Assess & Plan/Chief Complaint Acute hypoxic respiratory failure due to COVID19 Currently on vapotherm, low threshold for transfer to ICU if settings increase Continue remdesivir s/p convalescent plasma, EUA status discussed with patient in ER continue decadron MAT protocol Lovenox Tessalon for cough Coag negative staph bacteremia Growing in both bottles Start on Rocephin Sent for ID and sensitivities transaminitis, resolved improved again today, trend with remdesivir history of colon cancer s/p resection no acute management needs DVT ppx: Lovenox Diagnosis/Problems Diagnosis/Problems (1) Transaminitis (2) Coronavirus infection Status: Acute (3) History of colon cancer (4) S/P colectomy Status: Acute (5) Acute respiratory failure Qualifiers: Respiratory failure complication: hypoxia Qualified Codes: J96.01 - Acute respiratory failure with hypoxia Clinical Quality Measures DVT/VTE Risk/Contraindication: Risk Factor Score Per Nursin RFS Level Per Nursing on Admit: 4+=Very High SIMÓN LOW MD Feb 22, 2020 11:20
[2020-02-22] MEDS: cefTRIAXone FOR IV USE 1,000 MG in WATER (STERILE) FOR INJECTION 10 ML IV SCH (13:09)
[2020-02-22] MEDS: ENOXAPARIN 40 MG/0.4 ML (LOVENOX) SYR SQ SCH (13:10)
--- NOTE | 2020-02-22 13:25 | Physical Therapy Evaluation ---
PT Evaluation-General Medical Diagnosis Admission Date Feb 20, 2020 at 15:36 Medical Diagnosis: Covid (+) Onset Date: Feb 20, 2020 Therapy Diagnosis Therapy Diagnosis: debility Height/Weight Height (Feet): 5 Height (Inches): 10.00 Weight (Pounds): 168 Weight (Ounces): 0.0 Precautions Precautions/Isolations: Contact Isolation, Droplet Isolation, Fall Prevention Referral Physician: Brionna Reason for Referral: Evaluation/Treatment Medical History Pertinent Medical History: Smoking (past) Additional Medical History colon and kidney cancer Current History ER secondary to SOA with SAO2 72% RA Reviewed History: Yes Social History Home: Single Level Current Living Status: Alone Entry Into Home: Ramp Prior Prior Level of Function SCALE: Activities may be completed with or without assistive devices. 6-Ngbijlzdad-trscjok completes the activity by him/herself with no assistance from a helper. 5-Set-up or Clean-up Assistance-helper sets up or cleans up; patient completes activity. [place] assists only prior to or following the activity. 4-Supervision or Touching Assistance-helper provides verbal cues and/or touching/steadying and/or contact guard assistance as patient completes activity. Assistance may be provided throughout the activity or intermittently. 3-Partial/Moderate Assistance-helper does LESS THAN HALF the effort. [place] lifts, holds or supports trunk or limbs, but provides less than half the effort. 2-Substantial/Maximal Assistance-helper does MORE THAN HALF the effort. [place] lifts or holds trunk or limbs and provides more than half the effort. 4-Gomuictdj-lbmsou does ALL the effort. Patient does none of the effort to complete the activity. Or, the assistance of 2 or more helpers is required for the patient to complete the activity. If activity was not attempted, code reason: 7-Patient Refused. 9-Not Applicable-not attempted and the patient did not perform the activity before the current illness, exacerbation or injury. 10-Not Attempted due to Environmental Limitations-(lack of equipment, weather restraints, etc.). 88-Not Attempted due to Medical Conditions or Safety Concerns. Bed Mobility: 6 Transfers (B,C,W/C): 6 Gait: 6 Stairs: 6 Indoor Mobility (Ambulation): Independent Stairs: Independent Prior Devices Use: None PT Evaluation-Current Subjective Patient agrees to PT. Objective Patient Orientation: Normal For Age Attachments: Oxygen (vapotherm), Moody Catheter, IV ROM/Strength ROM Lower Extremities bilateral LE WFL Strength Lower Extremities 4/5 grossly bilateral LE Integumentary/Posture Integumentary refer to nursing notes Bowel Incontinence: No Bladder Incontinence: Moody Cath Posture WFL Neuromuscular (Tone, Coordination, Reflexes) grossly intact Sensory Vision: Functional Hearing: Functional Sensation Right Lower Extremit: Intact Sensation Left Lower Extremity: Intact Transfers Roll Left to Right (QC): 6 Sit to Lying (QC): 88 Lying to Sitting/Side of Bed(Q: 88 Sit to Stand (QC): 88 Chair/Ajk-dq-Fdrej Xfer(QC): 88 Toilet Transfer (QC): 88 Gait Does the Patient Walk?: No and Walking Goal IS indicated Mode of Locomotion: Walk Anticipated Mode of Locomotion: Walk Walk 10 feet (QC): 88 Walk 50 ft with 2 Turns(QC): 88 Walk 150 ft (QC): 88 Treatment Due to demand of O2/vapotherm, bed exercises only with monitoring SAO2 during treatment. Bilateral LE and UE exercises in supine performed with SAO2 decreasing to 91%. Assessment/Needs 74 y.o. female, will benefit from skilled PT to address pulmonary function with functional strengthening and mobility as tolerated with monitoring of SAO2 to ensure safe return. Rehab Potential: Fair PT Fpc Goals Fpc Goals PT Fpc Goals Time Frame: Mar 08, 2020 Roll Left & Right (QC): 6 Sit to Lying (QC): 6 Lying-Sitting on Side/Bed(QC): 6 Sit to Stand (QC): 6 Chair/Glh-qq-Kltrk Xfer(QC): 6 Toilet Transfer (QC): 6 Car Transfer (QC): 6 Does the Patient Walk: Yes Walk 10 feet (QC): 6 Walk 50ft with 2 Turns (QC): 6 Walk 150 ft (QC): 6 PT Plan Problem List Problem List: Activity Tolerance Treatment/Plan Treatment Plan: Continue Plan of Care Treatment Plan: Education, Functional Activity Gerry, Functional Strength, Gait, Safety, Therapeutic Exercise, Transfers Treatment Duration: Mar 08, 2020 Frequency: 6 times per week Estimated Hrs Per Day: .25 hour per day Patient and/or Family Agrees t: Yes Time/GCodes Time In: 1220 Time Out: 1235 Total Billed Treatment Time: 15 Total Billed Treatment 1 visit EVLowC 15 min SHANTELL BURGESS PT Feb 22, 2020 13:25
[2020-02-22] MEDS ORDERED: DEXA6TAB PO (13:57)
[2020-02-22] MEDS ORDERED: FLUT12AE6 INH (13:57)
[2020-02-22] MEDS ORDERED: ENOXAPARIN 40 MG/0.4 ML (LOVENOX) SYR SQ SCH (14:00)
--- NOTE | 2020-02-22 14:04 | NUR ---
SPOKE WITH THE PT (CALLED HER ROOM PHONE) AND WENT THRU THE EXT MED HISTORY TO COMPLETE THE MED REC ACCORDING TO THE PT SHE NORMALLY DOESNT TAKES ANY PRESCRIPTION MEDICATIONS AND SHE WAS RECENTLY PRESCRIBED AZITHROMYCIN (SHE HAS FINISHED THIS THERAPY), DEXAMETHASONE, AND ADVAIR HFA. OTC MEDS: ASIM
[2020-02-22] MEDS: REMDESIVIR INJ 100 MG in NS (IVPB) 230 ML IV SCH (14:15)
[2020-02-23] VITALS (15 sets, daily range): BP systolic 86–122; BP diastolic 45–66
[2020-02-23] MEDS: ACETAMINOPHEN 325 MG TABLET PO PRN (02:47)
[2020-02-23] MEDS: RT-ALBUTEROL INHALER HFA (VENTOLIN HFA) 18 GM IH SCH ×10 (03:23→23:09)
[2020-02-23 06:00] LABS: HEMOGLOBIN 11.4 g/dL (11.5-16.0); WHITE BLOOD COUNT 13.6 10^3/uL (4.3-11.0)
[2020-02-23 06:10] LABS: ALBUMIN 2.6 GM/DL (3.2-4.5); CHLORIDE 108 MMOL/L (98-107); POTASSIUM 3.7 MMOL/L (3.6-5.0); SODIUM 140 MMOL/L (135-145)
[2020-02-23 06:12] LABS: CALCIUM 7.6 MG/DL (8.5-10.1)
[2020-02-23 06:13] LABS: GLUCOSE 89 MG/DL (70-105); TOTAL PROTEIN 4.7 GM/DL (6.4-8.2)
[2020-02-23 06:14] LABS: CARBON DIOXIDE 22 MMOL/L (21-32)
[2020-02-23 06:15] LABS: BILIRUBIN,TOTAL 0.4 MG/DL (0.1-1.0)
[2020-02-23 06:16] LABS: ALKALINE PHOSPHATASE 78 U/L (40-136)
[2020-02-23 06:17] LABS: CREATININE SERUM 0.64 MG/DL (0.60-1.30); GFR ESTIMATED > 60
[2020-02-23 06:18] LABS: BUN/CREATININE RATIO 17
[2020-02-23 06:19] LABS: ALANINE AMINOTRANSFERASE 35 U/L (0-55)
[2020-02-23] MEDS: IPRATROPIUM INHALER (ATROVENT) 12.9 GM INH SCH ×3 (08:40→18:28)
[2020-02-23] MEDS: cefTRIAXone FOR IV USE 1,000 MG in WATER (STERILE) FOR INJECTION 10 ML IV SCH (09:39)
[2020-02-23] MEDS ORDERED: fentaNYL INJECTION 100 MCG/2 ML AMP IVP ONE (09:45)
--- NOTE | 2020-02-23 09:45 | NUR ---
THIS RN AT BEDSIDE WITH PCT CHANGING LINENS AND ASSESSING PT AT THIS TIME. PTS O2 NEEDS INCREASE FROM 35L 90% ON VAPOTHERM (O2 SATS 86%) TO 40L 100%. THIS RN NOTIFIES DEVANTE OF PT INCREASED OXYGEN NEEDS. PT MAINTAINS SATS OF 94% IF IN PRONE POSITION HOWEVER, DUE TO BACK PAIN PT IS UNABLE TO TOLERATE BEING PRONE. THIS RN REQUESTS ORDER FOR PAIN MEDICATION AT THIS TIME. NEW ORDERS OBTAINED.
--- NOTE | 2020-02-23 09:50 | NUR ---
DEVANTE AT BEDSIDE. PT UNABLE TO MAINTAIN O2 SATS ABOVE 88-89% ON VAPOTHERM AT THIS TIME. DEVANTE REQUESTS THAT PT BE TRANSFERED TO ICU FOR HIGHER LEVEL OF CARE. PT AGREES TO UNIT CHANGE AND REQUESTS THAT THIS RN NOTIFY HER SON.
--- NOTE | 2020-02-23 10:27 | Progress Note - Hospitalist ---
Subjective HPI/CC On Admission Date Seen by Provider: Feb 23, 2020 Time Seen by Provider: 10:27 Pt is a 74yoCF with a PMH of colon cancer s/p resection in 2017 who presented to the ER due to hypoxia. She was diagnosed with COVID a week and a day ago and had been monitoring her symptoms at home and was running around 85% and was tole rating it so thought she was doing well. She continued to feel more weak though so decided to seek evaluation in the ER and on arrival had a sat of 72%. She was placed on 10lpm in the ER and was able to be titrated down to ~6lpm and was admitted to the floor. Overnight she became more hypoxic and was started on vapotherm. Since being on Vapotherm she states she feels better and is breathing easier. Her only other complaint is being tired from being up most of the night. Subjective/Events-last exam Called to bedside over hypoxia. Patient was unable to tolerate proning due to pain and when returned to supine was maxed on vapotherm. Discussed with patient on plan to transfer to the ICU. Rn to call son. I notified house sup of need. Focused Exam Lactate Level 02/20/20 14:00: Lactic Acid Level 1.80 Objective Exam Vital Signs Vital Signs Date Time Temp Pulse Resp B/P (MAP) Pulse Ox O2 Delivery O2 Flow Rate FiO2 02/23/20 08:41 91 Vapotherm 35.00 90 02/23/20 08:29 36.9 74 18 122/66 (84) Capillary Refill : Less Than 3 Seconds General Appearance: Anxious, Chronically ill, Mild Distress (tearful) Respiratory: No Accessory Muscle Use, Decreased Breath Sounds; No Wheezing; Other (on vapotherm) Cardiovascular: Regular Rate, Rhythm, No Murmur Gastrointestinal: Normal Bowel Sounds, Non Tender, Soft Neurologic/Psychiatric: Alert, Oriented x3 Results/Procedures Lab Laboratory Tests 02/23/20 05:39 Patient resulted labs reviewed. Imaging: Reviewed Imaging Report Assessment/Plan Assessment and Plan Assess & Plan/Chief Complaint Acute hypoxic respiratory failure due to COVID19 Currently on vapotherm, will transfer to the ICU given oxygen needs Continue remdesivir s/p convalescent plasma, EUA status discussed with patient in ER continue decadron MAT protocol Lovenox Tessalon for cough Coag negative staph bacteremia Continue Rocephin Different organisms so likely contaminant, will continue IV abx and repeat cultures though transaminitis, resolved resolved, trend with remdesivir history of colon cancer s/p resection no acute management needs DVT ppx: Lovenox Diagnosis/Problems Diagnosis/Problems (1) Acute respiratory failure Qualifiers: Respiratory failure complication: hypoxia Qualified Codes: J96.01 - Acute respiratory failure with hypoxia (2) Transaminitis (3) Coronavirus infection Status: Acute (4) History of colon cancer (5) S/P colectomy Status: Acute Clinical Quality Measures DVT/VTE Risk/Contraindication: Risk Factor Score Per Nursin RFS Level Per Nursing on Admit: 4+=Very High SIMÓN LOW MD Feb 23, 2020 10:27
--- NOTE | 2020-02-23 11:15 | NUR ---
Assisted pt with proning. Pt unable to lay completely on abd due to pain but is able to lay approx 3/[address] prone. Augustin up to 95%
[2020-02-23] MEDS: ENOXAPARIN 40 MG/0.4 ML (LOVENOX) SYR SQ SCH (15:09)
[2020-02-23] MEDS: REMDESIVIR INJ 100 MG in NS (IVPB) 230 ML IV SCH (15:09)
[2020-02-23] MEDS: HYDROcodone/APAP 5 MG/325 MG (LORTAB) TAB PO PRN (15:10)
[2020-02-24] VITALS (24 sets, daily range): BP systolic 86–117; BP diastolic 48–65
[2020-02-24] MEDS: RT-ALBUTEROL INHALER HFA (VENTOLIN HFA) 18 GM IH SCH ×4 (01:58→19:12)
[2020-02-24] MEDS: IPRATROPIUM INHALER (ATROVENT) 12.9 GM INH SCH ×4 (01:59→19:12)
[2020-02-24] MEDS: HYDROcodone/APAP 5 MG/325 MG (LORTAB) TAB PO PRN ×4 (02:35→15:34)
[2020-02-24 02:47] LABS: HEMOGLOBIN 11.5 g/dL (11.5-16.0); MEAN PLATELET VOLUME 9.3 fL (9.0-12.2); WHITE BLOOD COUNT 15.2 10^3/uL (4.3-11.0)
[2020-02-24 03:00] LABS: ALBUMIN 2.6 GM/DL (3.2-4.5); CHLORIDE 107 MMOL/L (98-107); POTASSIUM 3.8 MMOL/L (3.6-5.0); SODIUM 141 MMOL/L (135-145)
[2020-02-24 03:01] LABS: CALCIUM 7.7 MG/DL (8.5-10.1)
[2020-02-24 03:02] LABS: GLUCOSE 101 MG/DL (70-105)
[2020-02-24 03:04] LABS: BILIRUBIN,TOTAL 0.6 MG/DL (0.1-1.0); CARBON DIOXIDE 22 MMOL/L (21-32)
[2020-02-24 03:06] LABS: ALKALINE PHOSPHATASE 80 U/L (40-136); CREATININE SERUM 0.64 MG/DL (0.60-1.30); GFR ESTIMATED > 60
[2020-02-24 03:07] LABS: BUN/CREATININE RATIO 17
[2020-02-24 03:09] LABS: ALANINE AMINOTRANSFERASE 29 U/L (0-55)
[2020-02-24] MEDS: cefTRIAXone FOR IV USE 1,000 MG in WATER (STERILE) FOR INJECTION 10 ML IV SCH (08:34)
--- NOTE | 2020-02-24 11:32 | Progress Note - Hospitalist ---
Subjective HPI/CC On Admission Date Seen by Provider: Feb 24, 2020 Time Seen by Provider: 11:27 Pt is a 74yoCF with a PMH of colon cancer s/p resection in 2017 who presented to the ER due to hypoxia. She was diagnosed with COVID a week and a day ago and had been monitoring her symptoms at home and was running around 85% and was tole rating it so thought she was doing well. She continued to feel more weak though so decided to seek evaluation in the ER and on arrival had a sat of 72%. She was placed on 10lpm in the ER and was able to be titrated down to ~6lpm and was admitted to the floor. Overnight she became more hypoxic and was started on vapotherm. Since being on Vapotherm she states she feels better and is breathing easier. Her only other complaint is being tired from being up most of the night. Subjective/Events-last exam Pt remains stable on max settings of Vapotherm. Satting 94% while I was at [facility]. Objective Exam Vital Signs Vital Signs Date Time Temp Pulse Resp B/P (MAP) Pulse Ox O2 Delivery O2 Flow Rate FiO2 02/24/20 11:00 60 15 108/58 (75) 91 Vapotherm 40.00 100.00 02/24/20 08:46 100 02/24/20 07:18 37.1 Capillary Refill : Less Than 3 Seconds General Appearance: Mild Distress (appears weak and tired) Respiratory: Decreased Breath Sounds; No Rhonci, No Wheezing Cardiovascular: Regular Rate, Rhythm, No Murmur Gastrointestinal: Normal Bowel Sounds, Non Tender, Soft Neurologic/Psychiatric: Alert, Oriented x3 Results/Procedures Lab Laboratory Tests 02/24/20 02:40 Patient resulted labs reviewed. Imaging: Reviewed Imaging Report Assessment/Plan Assessment and Plan Assess & Plan/Chief Complaint Acute hypoxic respiratory failure due to COVID19 Currently on vapotherm, stable but on max settings I worry that she will continue to decompensate and has low reserve Continue remdesivir s/p convalescent plasma continue decadron MAT protocol Lovenox Tessalon for cough Coag negative staph bacteremia Continue Rocephin Different organisms so likely contaminant, will continue IV abx for now and await repeat blood culturesr transaminitis, resolved resolved, trend with remdesivir history of colon cancer s/p resection no acute management needs DVT ppx: Lovenox Diagnosis/Problems Diagnosis/Problems (1) Acute respiratory failure Qualifiers: Respiratory failure complication: hypoxia Qualified Codes: J96.01 - Acute respiratory failure with hypoxia (2) Transaminitis (3) Coronavirus infection Status: Acute (4) History of colon cancer (5) S/P colectomy Status: Acute Clinical Quality Measures DVT/VTE Risk/Contraindication: Risk Factor Score Per Nursin RFS Level Per Nursing on Admit: 4+=Very High SIMÓN LOW MD Feb 24, 2020 11:31
[2020-02-24] MEDS: REMDESIVIR INJ 100 MG in NS (IVPB) 230 ML IV SCH (14:09)
[2020-02-24] MEDS: ENOXAPARIN 40 MG/0.4 ML (LOVENOX) SYR SQ SCH (14:09)
[2020-02-25] VITALS (21 sets, daily range): BP systolic 88–112; BP diastolic 43–72
[2020-02-25] MEDS: RT-ALBUTEROL INHALER HFA (VENTOLIN HFA) 18 GM IH SCH ×6 (02:25→21:43)
[2020-02-25] MEDS: IPRATROPIUM INHALER (ATROVENT) 12.9 GM INH SCH ×6 (02:26→21:44)
[2020-02-25 02:54] LABS: HEMOGLOBIN 11.3 g/dL (11.5-16.0); MEAN PLATELET VOLUME 9.3 fL (9.0-12.2); WHITE BLOOD COUNT 13.9 10^3/uL (4.3-11.0)
[2020-02-25 03:02] LABS: ALBUMIN 2.5 GM/DL (3.2-4.5)
[2020-02-25 03:03] LABS: CHLORIDE 106 MMOL/L (98-107); POTASSIUM 4.3 MMOL/L (3.6-5.0); SODIUM 140 MMOL/L (135-145)
[2020-02-25 03:04] LABS: CALCIUM 7.7 MG/DL (8.5-10.1)
[2020-02-25 03:05] LABS: GLUCOSE 97 MG/DL (70-105)
[2020-02-25 03:06] LABS: CARBON DIOXIDE 24 MMOL/L (21-32)
[2020-02-25 03:07] LABS: BILIRUBIN,TOTAL 0.5 MG/DL (0.1-1.0)
[2020-02-25 03:09] LABS: ALKALINE PHOSPHATASE 80 U/L (40-136); CREATININE SERUM 0.63 MG/DL (0.60-1.30); GFR ESTIMATED > 60
[2020-02-25 03:10] LABS: BUN/CREATININE RATIO 25
[2020-02-25 03:12] LABS: ALANINE AMINOTRANSFERASE 25 U/L (0-55)
--- NOTE | 2020-02-25 04:17 | Pulmonary Consultation ---
History of Present Illness History of Present Illness Date of Admission Allergies and Home Medications Allergies Coded Allergies: No Known Drug Allergies (Unverified , 06/17/16) Home Medications Dexamethasone 6 Mg Tablet, 6 MG PO DAILY, (Reported) 02-13-2020 #10 DAY SUPPLY Fluticasone/Salmeterol 12 Gm Hfa.aer.ad, 2 PUFF INH BID, (Reported) Multivitamin 1 Each Tablet, 1 EACH PO DAILY, (Reported) Past Wnrislm-Hpdlix-Cwwzrr Hx Past Med/Social Hx: Reviewed Nursing Past Med/Soc Hx Patient Social History Alcohol Use: Denies Use Recreational Drug Use: No Smoking Status: Former Smoker Type Used: Cigarettes Former Smoker, Quit: Jun 17, 1977 2nd Hand Smoke Exposure: No Recent Foreign Travel: No Contact w/Someone Who Travel: No Recent Infectious Disease Expo: No Recent Hopitalizations: No Immunizations Up To Date Tetanus Booster (TDap): Unknown PED Vaccines UTD: No Date of Pneumonia Vaccine: Dec 21, 2019 Date of Influenza Vaccine: Jan 19, 2020 Seasonal Allergies Seasonal Allergies: No Past Medical History Surgeries: Yes (colon resection X2, port, RIGHT KIDNEY ABLATION, colon blockage) Abdominal, Adenoidectomy, Tonsillectomy Respiratory: No Currently Using CPAP: No Currently Using BIPAP: No Cardiac: No Neurological: No Reproductive Disorders: No Sexually Transmitted Disease: No HIV/AIDS: No Genitourinary: Yes (KIDNEY ABLATION-CANCER 2019) Gastrointestinal: Yes (COLON CANCER DX 2017) Musculoskeletal: No Endocrine: No HEENT: Yes (READING GLASSES, DENTURES) Loss of Vision: Denies Hearing Impairment: Denies Cancer: Yes Colon, Kidney Did You Recieve Any Treatments: Yes What Type of Treatment Did You: Chemotherapy, Surgical Intervention Psychosocial: No Integumentary: No Blood Disorders: No Adverse Reaction/Blood Tranf: No (N/A) Family Medical History Reviewed Nursing Family Hx Hypertension 19 MOTHER, Onset:Unknown No Pertinent Family Hx Sepsis Event Evaluation Height, Weight, BMI Height: 5'10.00" Weight: 168lbs. 0.0oz. 76.807878qg; 20.76 BMI Method:Stated Exam Exam Vital Signs Date Time Temp Pulse Resp B/P (MAP) Pulse Ox O2 Delivery O2 Flow Rate FiO2 02/25/20 02:26 96 Vapotherm 40.00 90 02/25/20 00:00 36.2 02/24/20 23:00 46 13 99/59 (72) 97 Vapotherm 40.00 100.00 02/24/20 22:00 46 15 89/59 (69) 94 Vapotherm 40.00 100.00 02/24/20 21:00 46 13 95/58 (70) 93 Vapotherm 40.00 100.00 02/24/20 20:22 35.6 02/24/20 20:00 46 8 96/51 (66) 95 Vapotherm 40.00 100.00 02/24/20 20:00 94 Vapotherm 40.00 100 02/24/20 19:12 96 Vapotherm 40.00 100 02/24/20 19:00 46 02/24/20 19:00 46 13 93/54 (67) 93 Vapotherm 40.00 100.00 02/24/20 18:00 46 16 95/53 (67) 94 Vapotherm 40.00 100.00 02/24/20 17:00 47 14 86/51 (63) 92 Vapotherm 40.00 100.00 02/24/20 16:30 36.0 02/24/20 16:00 50 16 96/55 (69) 95 Vapotherm 40.00 100.00 02/24/20 15:00 51 15 100/54 (69) 95 Vapotherm 40.00 100.00 02/24/20 14:00 56 22 96/55 (69) 91 Vapotherm 40.00 100.00 02/24/20 13:00 51 17 100/53 (69) 97 Vapotherm 40.00 100.00 02/24/20 12:28 59 02/24/20 12:00 53 18 99/58 (72) 94 Vapotherm 40.00 100.00 02/24/20 11:46 36.4 02/24/20 11:00 60 15 108/58 (75) 91 Vapotherm 40.00 100.00 02/24/20 10:00 63 8 99/48 (65) 93 Vapotherm 40.00 100.00 02/24/20 09:00 62 9 90/58 (67) 90 Vapotherm 40.00 100.00 02/24/20 08:46 90 Vapotherm 40.00 100 02/24/20 08:00 69 37 108/56 (80) 95 Vapotherm 40.00 100.00 02/24/20 07:37 Vapotherm 40.00 100 02/24/20 07:18 37.1 02/24/20 07:00 72 20 101/49 (76) 95 Vapotherm 40.00 100.00 02/24/20 07:00 71 02/24/20 06:00 67 19 103/58 (73) 94 Vapotherm 40.00 100.00 02/24/20 05:00 71 26 112/59 (76) 95 Vapotherm 40.00 100.00 I & O 02/25/20 07:00 Intake Total 300 ml Output Total 450 ml Balance -150 ml Height & Weight Height: 5'10.00" Weight: 168lbs. 0.0oz. 76.500284fz; 20.76 BMI Method:Stated General Appearance: Mild Distress (appears weak and tired) HEENT: PERRL/EOMI, Moist Mucous Membranes Neck: Normal Inspection, Supple Respiratory: Decreased Breath Sounds; No Rhonci, No Wheezing Cardiovascular: Regular Rate, Rhythm, No Murmur Capillary Refill: Less Than 3 Seconds Gastrointestinal: normal bowel sounds, non tender, soft Extremity: Normal Capillary Refill, No Calf Tenderness, No Pedal Edema Neurologic/Psychiatric: Alert, Oriented x3 Results Lab Laboratory Tests 02/23/20 05:39 02/24/20 02:40 02/25/20 02:40 Assessment/Plan Assessment/Plan Acute hypoxic respiratory failure due to COVID19 Currently on vapotherm currently on 90% -DX with COVID 02/12 Continue remdesivir s/p convalescent plasma -Awake proning continue decadron MAT protocol Lovenox Tessalon for cough Coag negative staph bacteremia Continue Rocephin Different organisms so likely contaminant, will continue IV abx for now and await repeat blood culturesr transaminitis, resolved resolved, trend with remdesivir history of colon cancer s/p resection no acute management needs DVT ppx: Lovenox KRISS DA SILVA DO Feb 25, 2020 04:17
--- NOTE | 2020-02-25 07:39 | Diagnostic Imaging Report ---
INDICATION: Followup pneumonia. Hypoxia. COMPARISON: 02/20/2020 FINDINGS: Single frontal radiographic view of the chest was obtained and demonstrates interval progression of mixed interstitial and alveolar infiltrates greatest within the bilateral mid and lower lung mckeon. There is no large effusion or pneumothorax. Cardiac silhouette is now partially obscured, but appears stable. Right internal jugular Port-A-Cath is present with tip in the SVC. Osseous structures show no gross acute abnormalities. IMPRESSION: 1. Interval progression of bilateral infiltrates. Continued followup is advised. Dictated by: Dictated on workstation # [id number]
[2020-02-25] MEDS: ACETAMINOPHEN 325 MG TABLET PO PRN (09:05)
[2020-02-25] MEDS: PANTOPRAZOLE 40 MG (PROTONIX) TAB PO SCH (09:05)
[2020-02-25] MEDS: cefTRIAXone FOR IV USE 1,000 MG in WATER (STERILE) FOR INJECTION 10 ML IV SCH (09:05)
[2020-02-25] MEDS: ENOXAPARIN 60 MG/0.6 ML (LOVENOX) SYR SC SCH ×2 (09:05→20:05)
--- NOTE | 2020-02-25 11:15 | Physical Therapy Progress Note ---
Therapy Progress Note Patient currently requiring more O2 demand. Consulted with RN on new orders. Patient on Hold for PT due to current status. Will continue to monitor patient status. SHANTELL BURGESS PT Feb 25, 2020 11:15
[2020-02-25] MEDS: REMDESIVIR INJ 100 MG in NS (IVPB) 230 ML IV SCH (15:02)
[2020-02-25] MEDS: IPRATROPIUM INHALER (ATROVENT) 12.9 GM INH PRN ×2 (18:53→21:42)
--- NOTE | 2020-02-25 21:33 | NUR ---
RECEIVED CALL FROM FAMILY MEMBER. PASSWORD VERIFIED. UPDATED ON PATIENT CONDITION.
[2020-02-26] VITALS (24 sets, daily range): BP systolic 101–119; BP diastolic 52–101
[2020-02-26] MEDS: RT-ALBUTEROL INHALER HFA (VENTOLIN HFA) 18 GM IH SCH ×6 (01:57→20:56)
[2020-02-26] MEDS: IPRATROPIUM INHALER (ATROVENT) 12.9 GM INH SCH ×6 (01:57→20:56)
[2020-02-26] MEDS: IPRATROPIUM INHALER (ATROVENT) 12.9 GM INH PRN (01:57)
[2020-02-26 02:41] LABS: MEAN PLATELET VOLUME 9.8 fL (9.0-12.2); WHITE BLOOD COUNT 10.9 10^3/uL (4.3-11.0)
[2020-02-26 02:53] LABS: ALBUMIN 2.5 GM/DL (3.2-4.5); CHLORIDE 105 MMOL/L (98-107); POTASSIUM 4.5 MMOL/L (3.6-5.0); SODIUM 141 MMOL/L (135-145)
[2020-02-26 02:55] LABS: CALCIUM 7.9 MG/DL (8.5-10.1)
[2020-02-26 02:56] LABS: GLUCOSE 99 MG/DL (70-105)
[2020-02-26 02:57] LABS: BILIRUBIN,TOTAL 0.5 MG/DL (0.1-1.0); CARBON DIOXIDE 25 MMOL/L (21-32)
[2020-02-26 02:59] LABS: ALKALINE PHOSPHATASE 80 U/L (40-136); CREATININE SERUM 0.65 MG/DL (0.60-1.30); GFR ESTIMATED > 60
[2020-02-26 03:00] LABS: BUN/CREATININE RATIO 35
[2020-02-26 03:02] LABS: ALANINE AMINOTRANSFERASE 24 U/L (0-55)
[2020-02-26 04:08] LABS: ABG BASE EXCESS 1.7 MMOL/L (-2.5-2.5); ABG OXYGEN SATURATION 91 % (94-100); ABG PCO2 38 MMHG (35-45); ABG PH 7.44 (7.37-7.43); ABG PO2 59 MMHG (79-93)
[2020-02-26 04:11] LABS: ALLENS TEST YES-POS; INSPIRED O2 75%; PATIENT TEMP 35.9; VENTILATOR NO
--- NOTE | 2020-02-26 05:20 | Pulmonary Progress Note ---
Subjective Time Seen by a Provider: 05:17 Subjective/Events-last exam Pt is requiring BiPAP. Sepsis Event Evaluation Height, Weight, BMI Height: 5'10.00" Weight: 168lbs. 0.0oz. 76.045031bg; 20.76 BMI Method:Stated Exam Exam Vital Signs Date Time Temp Pulse Resp B/P (MAP) Pulse Ox O2 Delivery O2 Flow Rate FiO2 02/26/20 04:00 36.0 02/26/20 03:00 NIV Bilevel 75.00 02/26/20 01:58 55 19 93 75.00 02/26/20 01:00 52 02/26/20 00:25 36.0 91 NIV Bilevel 90.00 02/25/20 21:44 52 24 93 75.00 02/25/20 20:08 35.7 02/25/20 20:06 94 NIV Bilevel 75.00 02/25/20 20:00 NIV Bilevel 75 02/25/20 19:00 50 02/25/20 18:54 52 24 93 80.00 02/25/20 16:00 53 18 104/51 (68) 95 Vapotherm 40.00 100.00 02/25/20 15:50 36.1 02/25/20 14:22 60 24 95 90.00 02/25/20 12:46 66 02/25/20 12:00 70 28 103/43 (63) 94 Vapotherm 40.00 100.00 02/25/20 11:00 67 19 96/66 (76) 92 Vapotherm 40.00 100.00 02/25/20 10:32 69 24 92 100.00 02/25/20 10:00 66 26 100/59 (73) 90 Vapotherm 40.00 100.00 02/25/20 09:14 36.2 60 92 02/25/20 09:00 70 25 102/50 (67) 93 Vapotherm 40.00 100.00 02/25/20 08:00 68 19 103/50 (67) 95 Vapotherm 40.00 100.00 02/25/20 07:35 NIV Bilevel 02/25/20 07:00 61 21 97/52 (67) 95 Vapotherm 40.00 100.00 02/25/20 06:42 60 22 92 100.00 12/7/20 06:40 66 02/25/20 06:00 62 18 98/49 (65) 87 Vapotherm 40.00 100.00 I & O 02/26/20 06:59 Intake Total 50 ml Output Total 525 ml Balance -475 ml Height & Weight Height: 5'10.00" Weight: 168lbs. 0.0oz. 76.957095og; 20.76 BMI Method:Stated General Appearance: Mild Distress (appears weak and tired) HEENT: PERRL/EOMI, Moist Mucous Membranes Neck: Normal Inspection, Supple Respiratory: Decreased Breath Sounds; No Rhonci, No Wheezing Cardiovascular: Regular Rate, Rhythm, No Murmur Capillary Refill: Less Than 3 Seconds Gastrointestinal: normal bowel sounds, non tender, soft Extremity: Normal Capillary Refill, No Calf Tenderness, No Pedal Edema Neurologic/Psychiatric: Alert, Oriented x3 Results Lab Laboratory Tests 02/25/20 02:40 02/26/20 02:22 Assessment/Plan Assessment/Plan Acute hypoxic respiratory failure due to COVID19 Currently on BiPAP 75%. Did not tolerate Vapotherm yesterday. -CXR appears much worse. -Will repeat CXR -Pt will probably need intubation. -DX with COVID 02/12 Continue remdesivir s/p convalescent plasma -Awake proning continue decadron MAT protocol Lovenox Jorge for cough Coag negative staph bacteremia Continue Rocephin Different organisms so likely contaminant, will continue IV abx for now and await repeat blood culturesr transaminitis, resolved resolved, trend with remdesivir history of colon cancer s/p resection no acute management needs DVT ppx: KRISS Solo DO Feb 26, 2020 05:20
--- NOTE | 2020-02-26 07:09 | Diagnostic Imaging Report ---
EXAMINATION: Chest 1 view HISTORY: Respiratory distress. COVID positive. Follow-up. COMPARISON: 02/25/2020. FINDINGS: Stable right port. There is improved aeration in the right lung base with stable patchy opacities in the mid right lung and mid to lower left lung. No large pleural effusion or pneumothorax. Stable cardiac silhouette. There is calcified aortic atherosclerotic plaque. No acute osseous abnormalities. IMPRESSION: 1. Improved aeration in the right lung base, which may suggest improving infection. Stable opacities are seen in the right mid lung and left mid and lower lung. 2. Stable right port. Report was faxed to [facility] by carlos at 7:08am Dictated by: Dictated on workstation # [id number]
[2020-02-26] MEDS: PANTOPRAZOLE 40 MG (PROTONIX) TAB PO SCH (09:40)
[2020-02-26] MEDS: cefTRIAXone FOR IV USE 1,000 MG in WATER (STERILE) FOR INJECTION 10 ML IV SCH (09:40)
[2020-02-26] MEDS: ENOXAPARIN 60 MG/0.6 ML (LOVENOX) SYR SC SCH ×2 (09:40→20:40)
--- NOTE | 2020-02-26 09:47 | Physical Therapy Progress Note ---
Therapy Progress Note Patient on Hold per RN due to O2 demand. Patient currently on BiPap. PT will continue to monitor patient status. SHANTELL BURGESS PT Feb 26, 2020 09:47
--- NOTE | 2020-02-26 15:36 | NUR ---
Note avg PO intake <25% x3d, per chart review. Placed order for Ensure Clear with meals TID, for increased kcal intake. Provides 250 kcal and 8 g Pro per serving. Will continue to follow and reassess as pt needs, intake, and status change. Lisa RIZVI, MS RD LD [phone] CELL
[2020-02-27] VITALS (21 sets, daily range): BP systolic 93–131; BP diastolic 6–78
[2020-02-27] MEDS: IPRATROPIUM INHALER (ATROVENT) 12.9 GM INH SCH ×6 (01:51→21:32)
[2020-02-27] MEDS: RT-ALBUTEROL INHALER HFA (VENTOLIN HFA) 18 GM IH SCH ×6 (01:51→21:32)
[2020-02-27 02:32] LABS: HEMOGLOBIN 9.2 g/dL (11.5-16.0); WHITE BLOOD COUNT 20.9 10^3/uL (4.3-11.0)
[2020-02-27 03:41] LABS: ABG BASE EXCESS 1.4 MMOL/L (-2.5-2.5); ABG OXYGEN SATURATION 95 % (94-100); ABG PCO2 42 MMHG (35-45); ABG PO2 71 MMHG (79-93)
[2020-02-27 03:42] LABS: INSPIRED O2 NOT INDICATED; PATIENT TEMP NOT INDICATED
[2020-02-27 04:03] LABS: BUN/CREATININE RATIO 40; CARBON DIOXIDE 24 MMOL/L (21-32); CHLORIDE 106 MMOL/L (98-107); CREATININE SERUM 0.67 MG/DL (0.60-1.30); GFR ESTIMATED > 60; GLUCOSE 102 MG/DL (70-105); MAGNESIUM 2.3 MG/DL (1.6-2.4); PHOSPHORUS 3.2 MG/DL (2.3-4.7); POTASSIUM 4.6 MMOL/L (3.6-5.0); SODIUM 143 MMOL/L (135-145)
--- NOTE | 2020-02-27 04:46 | Pulmonary Progress Note ---
Subjective Time Seen by a Provider: 04:46 Sepsis Event Evaluation Height, Weight, BMI Height: 5'10.00" Weight: 168lbs. 0.0oz. 76.927739po; 20.76 BMI Method:Stated Exam Exam Vital Signs Date Time Temp Pulse Resp B/P (MAP) Pulse Ox O2 Delivery O2 Flow Rate FiO2 02/27/20 04:13 36.7 02/27/20 02:00 61 126/71 (89) 97 NIV Bilevel 80.00 02/27/20 01:52 56 18 96 85.00 02/27/20 01:00 64 19 129/73 (91) 95 NIV Bilevel 85.00 02/27/20 01:00 64 02/27/20 00:27 NIV Bilevel 85.00 02/27/20 00:00 56 22 123/70 (87) 96 NIV Bilevel 90.00 02/26/20 23:00 63 27 119/68 (85) 92 NIV Bilevel 90.00 02/26/20 22:00 58 30 113/65 (81) 97 NIV Bilevel 90.00 02/26/20 21:00 65 23 113/68 (83) 95 NIV Bilevel 90.00 02/26/20 20:57 60 26 96 90.00 02/26/20 20:00 64 13 118/69 (85) 95 NIV Bilevel 90.00 02/26/20 20:00 NIV Bilevel 90 02/26/20 19:42 35.8 02/26/20 19:00 NIV Bilevel 90.00 02/26/20 19:00 61 02/26/20 19:00 61 112/73 (86) 96 NIV Bilevel 90.00 02/26/20 18:20 60 23 95 90.00 02/26/20 18:00 60 22 112/73 (86) 94 NIV Bilevel 100.00 02/26/20 17:00 66 22 106/68 (81) 93 NIV Bilevel 100.00 02/26/20 16:00 66 41 112/67 (82) 93 NIV Bilevel 100.00 02/26/20 15:59 35.7 02/26/20 15:00 70 26 116/68 (84) 92 NIV Bilevel 100.00 02/26/20 14:35 68 27 93 90.00 02/26/20 14:00 64 21 119/56 (77) 93 NIV Bilevel 100.00 02/26/20 13:00 69 26 119/101 (107) 93 NIV Bilevel 100.00 02/26/20 12:52 73 02/26/20 12:46 36.4 02/26/20 12:00 77 27 115/65 (82) 91 NIV Bilevel 100.00 02/26/20 11:00 70 111/52 (71) 92 NIV Bilevel 100.00 02/26/20 10:00 67 26 113/61 (78) 94 NIV Bilevel 100.00 02/26/20 09:00 71 104/55 (71) 92 NIV Bilevel 100.00 02/26/20 08:08 36.7 02/26/20 08:00 NIV Bilevel 90 02/26/20 08:00 73 105/53 (70) 91 NIV Bilevel 100.00 02/26/20 07:56 72 28 92 90.00 02/26/20 07:00 69 114/65 (81) 91 NIV Bilevel 100.00 02/26/20 06:41 77 02/26/20 05:57 NIV Bilevel 100.00 I & O 02/27/20 07:00 Intake Total 0 ml Output Total 975 ml Balance -975 ml Height & Weight Height: 5'10.00" Weight: 168lbs. 0.0oz. 76.290629nz; 20.76 BMI Method:Stated General Appearance: Mild Distress (appears weak and tired) HEENT: PERRL/EOMI, Moist Mucous Membranes Neck: Normal Inspection, Supple Respiratory: Decreased Breath Sounds; No Rhonci, No Wheezing Cardiovascular: Regular Rate, Rhythm, No Murmur Capillary Refill: Less Than 3 Seconds Gastrointestinal: normal bowel sounds, non tender, soft Extremity: Normal Capillary Refill, No Calf Tenderness, No Pedal Edema Neurologic/Psychiatric: Alert, Oriented x3 Results Lab Laboratory Tests 02/26/20 02:22 02/27/20 02:10 02/27/20 03:10 Assessment/Plan Assessment/Plan Acute hypoxic respiratory failure due to COVID19 Currently on BiPAP 90%. Did not tolerate Vapotherm yesterday. -CXR appears much worse. -Will repeat CXR -Pt will probably need intubation. -DX with COVID 11/25 Continue remdesivir s/p convalescent plasma -Awake proning continue decadron MAT protocol Lovenox Tessalon for cough Worsening Leukocytosis -Repeat pierce cultures -Start Zosyn and Vanco Coag negative staph bacteremia Continue Rocephin Different organisms so likely contaminant, will continue IV abx for now and await repeat blood culturesr transaminitis, resolved resolved, trend with remdesivir history of colon cancer s/p resection no acute management needs DVT ppx: KRISS Solo DO Feb 27, 2020 04:46
[2020-02-27] MEDS ORDERED: PHARMACY TO DOSE IV SCH (06:00)
[2020-02-27] MEDS ORDERED: PIPERACILLIN/TAZOBACTAM (BULK) 4.5 GM in NS (IVPB) 100 ML IV SCH (06:00)
[2020-02-27] MEDS ORDERED: PIPERACILLIN/TAZOBACTAM 4.5 GM in NS (IVPB) 100 ML IV ONE (06:30)
--- NOTE | 2020-02-27 06:58 | Diagnostic Imaging Report ---
CHEST 1 VIEW, AP/PA ONLY Indication: Follow-up, COVID positive Comparison: 02/26/2020 Findings: Bilateral heterogeneous consolidations in the mid and lower lung zones are unchanged. Potential trace left pleural effusion is stable. No pneumothorax. Stable right IJ Port-A-Cath. Grossly stable cardiomediastinal silhouette. Impression: 1. No change in bilateral heterogeneous consolidations that could be due to COVID 19 pneumonia and/or developing ARDS. Dictated by: Dictated on workstation # [id number]
[2020-02-27] MEDS ORDERED: VANCOMYCIN 1500 MG/NS 500 ML IVPB IV SCH ×2 (07:00)
[2020-02-27] MEDS ORDERED: PANTOPRAZOLE 40 MG (PROTONIX) VIAL IV SCH (09:00)
[2020-02-27] MEDS: ENOXAPARIN 60 MG/0.6 ML (LOVENOX) SYR SC SCH ×2 (09:18→20:18)
[2020-02-27] MEDS ORDERED: NS (IVPB) 250 ML ONE (09:56)
--- NOTE | 2020-02-27 10:26 | Physical Therapy Progress Note ---
Therapy Progress Note Consulted with nurse, he states that patient is doing better, is alert and following directions. Attempted to see patient, sat on the side of the bed with SBA but O2 went from 90% to 87% in about 40 seconds, layed back down and came back up to 90% after a minute. Patient is not able to tolerate activity at this time. JORDYN MANZANO PT Feb 27, 2020 10:26
[2020-02-27] MEDS: PIPERACILLIN/TAZO 4.5 GM/NS 100 ML IV SCH ×2 (14:22)
--- NOTE | 2020-02-27 15:18 | NUR ---
"RD ASSESSMENT PMHx: CA(colon,kidney); COVID-19; PT INTERACTION: Note pt currently in COVID isolation, per chart review. Note all diet information for nutrition assessment for LOS is per Andrew RN or per chart review. Andrew states current appetite is poor, d/t high need for Bipap. Note avg PO intake <10% meals, per chart review. Andrew states no issues with n/v/c/d at this time. Note last BM was 02/21, and pt not currently on bowel regimen per chart review. Note recent 6# wt loss x1mon, per chart review. ABNORMAL NUTRITION-RELATED LAB VALUES LOW: HIGH: BUN 27; Est. kcal needs: 0635-9086 kcal | 30-35 kcal/kg Est. Pro needs: 65-78 g Pro | 1.0-1.2 g Pro/kg PES STATEMENT: Inadequate oral intake (NI-2.1) related to loss of appetite, and inability to eat, as evidenced by chart review, high need for bipap, and avg PO intake <10% meals. INTERVENTION: Continue with current diet order of Clear Liquid diet. Add Ensure Clear to meals TID, for increased kcal intake. Provides 250 kcal and 8 g Pro per serving. Pt may be a candidate for enteral nutrition if PO intake remains low. Will continue to follow and reassess as pt needs, intake, and status change. Lisa RIZVI, MS RD LD [phone] cell"
[2020-02-27] MEDS: ACETAMINOPHEN 325 MG TABLET PO PRN (16:41)
[2020-02-27] MEDS: VANCOMYCIN 1 GM/NS 250 ML IVPB IV SCH ×2 (20:19)
[2020-02-27] MEDS: FAMOTIDINE 20MG/2ML IV (PEPCID) IV SCH (20:19)
[2020-02-27] MEDS: HYDROcodone/APAP 5 MG/325 MG (LORTAB) TAB PO PRN (20:48)
[2020-02-27 21:36] LABS: BILIRUBIN,URINE NEGATIVE (NEGATIVE); COLOR,URINE YELLOW; GLUCOSE, URINE (UA) NEGATIVE (NEGATIVE); KETONES,URINE NEGATIVE (NEGATIVE); LEUKOCYTE ESTERASE ,URINE NEGATIVE (NEGATIVE); NITRITE,URINE NEGATIVE (NEGATIVE); PH,URINE 5.5 (5-9); PROTEIN,URINE NEGATIVE (NEGATIVE)
[2020-02-27 21:49] LABS: CLARITY,URINE SL CLOUDY
[2020-02-27 21:53] LABS: AMORPHOUS SEDIMENT,UR FEW AMOR URATES /LPF; BACTERIA,URINE TRACE /HPF; RBC,URINE 50-100 /HPF; SQUAMOUS EPITHELIAL CELL,UR 0-2 /HPF
[2020-02-28] VITALS (9 sets, daily range): BP systolic 92–105; BP diastolic 43–58
[2020-02-28] MEDS: RT-ALBUTEROL INHALER HFA (VENTOLIN HFA) 18 GM IH SCH ×5 (01:00→22:32)
[2020-02-28] MEDS: IPRATROPIUM INHALER (ATROVENT) 12.9 GM INH SCH ×5 (01:00→22:34)
[2020-02-28] MEDS: PIPERACILLIN/TAZO 4.5 GM/NS 100 ML IV SCH ×8 (01:20→21:02)
[2020-02-28] MEDS: HYDROcodone/APAP 5 MG/325 MG (LORTAB) TAB PO PRN (03:11)
[2020-02-28 03:28] LABS: HEMOGLOBIN 11.1 g/dL (11.5-16.0); MEAN PLATELET VOLUME 9.7 fL (9.0-12.2); WHITE BLOOD COUNT 10.2 10^3/uL (4.3-11.0)
--- NOTE | 2020-02-28 05:32 | Pulmonary Progress Note ---
Subjective Time Seen by a Provider: 05:27 Subjective/Events-last exam Pt is doing a little better today. She is tolerating being off BiPAP. Sepsis Event Evaluation Height, Weight, BMI Height: 5'10.00" Weight: 168lbs. 0.0oz. 76.273614de; 20.76 BMI Method:Stated Exam Exam Vital Signs Date Time Temp Pulse Resp B/P (MAP) Pulse Ox O2 Delivery O2 Flow Rate FiO2 02/28/20 01:00 58 17 104/58 (73) 96 NIV Bilevel 100.00 02/28/20 01:00 96 Vapotherm 40.00 100 02/28/20 00:00 54 23 104/58 (73) 96 NIV Bilevel 100.00 02/27/20 23:00 48 19 100/58 (72) 96 NIV Bilevel 100.00 02/27/20 22:00 56 12 97 NIV Bilevel 100.00 02/27/20 21:33 96 Vapotherm 40.00 100 02/27/20 21:32 96 40.00 100 02/27/20 21:00 70 32 92 NIV Bilevel 100.00 02/27/20 20:00 Vapotherm 100 02/27/20 20:00 59 48 97 NIV Bilevel 100.00 02/27/20 19:45 97 40.00 100 02/27/20 19:44 97 Vapotherm 40.00 100 02/27/20 19:00 56 46 96 NIV Bilevel 100.00 02/27/20 18:31 57 02/27/20 18:00 65 17 94 NIV Bilevel 100.00 02/27/20 17:00 75 16 93/58 (70) 93 NIV Bilevel 100.00 02/27/20 16:00 80 12 97/54 (68) 89 NIV Bilevel 100.00 02/27/20 15:00 56 94/56 (69) 93 NIV Bilevel 100.00 02/27/20 14:17 40.00 100 02/27/20 14:15 94 Vapotherm 40.00 100 02/27/20 14:00 56 32 108/63 (78) 94 NIV Bilevel 100.00 02/27/20 13:00 59 35 113/74 (87) 94 NIV Bilevel 100.00 02/27/20 12:42 61 02/27/20 12:00 60 41 104/62 (76) 95 NIV Bilevel 100.00 02/27/20 11:53 36.6 02/27/20 11:00 79 31 118/74 (89) 89 NIV Bilevel 100.00 02/27/20 10:34 67 24 92 80.00 02/27/20 10:00 60 19 106/71 (83) 95 NIV Bilevel 80.00 02/27/20 09:00 64 14 122/64 (83) 97 NIV Bilevel 80.00 02/27/20 08:00 66 115/63 (80) 91 NIV Bilevel 80.00 02/27/20 08:00 NIV Bilevel 80 02/27/20 07:52 36.2 02/27/20 07:40 40.00 100 02/27/20 07:37 94 Vapotherm 40.00 100 02/27/20 07:00 68 23 109/64 (79) 94 NIV Bilevel 80.00 02/27/20 06:34 77 02/27/20 06:00 68 21 122/70 (87) 94 NIV Bilevel 80.00 I & O 02/28/20 07:00 Intake Total 1341 ml Output Total 1325 ml Balance 16 ml Height & Weight Height: 5'10.00" Weight: 168lbs. 0.0oz. 76.043953bd; 20.76 BMI Method:Stated General Appearance: Mild Distress (appears weak and tired) HEENT: PERRL/EOMI, Moist Mucous Membranes Neck: Normal Inspection, Supple Respiratory: Decreased Breath Sounds; No Rhonci, No Wheezing Cardiovascular: Regular Rate, Rhythm, No Murmur Capillary Refill: Less Than 3 Seconds Gastrointestinal: normal bowel sounds, non tender, soft Extremity: Normal Capillary Refill, No Calf Tenderness, No Pedal Edema Neurologic/Psychiatric: Alert, Oriented x3 Results Lab Laboratory Tests 02/27/20 02:10 02/27/20 03:10 02/28/20 03:17 Assessment/Plan Assessment/Plan Acute hypoxic respiratory failure due to COVID19 Vapotherm currently 90% -DX with COVID 02/12 s/p remdesivir s/p convalescent plasma -Awake proning decadron MAT protocol Lovenox Tessalon for cough PNA -Repeat pierce cultures - Zosyn and Vanco Debility -Consult PT/OT -Advance diet as tolerated Coag negative staph bacteremia probable contamination history of colon cancer s/p resection no acute management needs DVT ppx: KRISS Solo DO Feb 28, 2020 05:32
[2020-02-28] MEDS: FAMOTIDINE 20MG/2ML IV (PEPCID) IV SCH ×2 (09:25→21:02)
[2020-02-28] MEDS: VANCOMYCIN 1 GM/NS 250 ML IVPB IV SCH ×2 (09:26)
[2020-02-28] MEDS: ENOXAPARIN 60 MG/0.6 ML (LOVENOX) SYR SC SCH ×2 (09:26→21:02)
[2020-02-28 10:03] LABS: ALANINE AMINOTRANSFERASE 21 U/L (0-55); ALBUMIN 2.5 GM/DL (3.2-4.5); ALKALINE PHOSPHATASE 67 U/L (40-136); BILIRUBIN,TOTAL 0.7 MG/DL (0.1-1.0); BUN/CREATININE RATIO 33; CALCIUM 8.4 MG/DL (8.5-10.1); CARBON DIOXIDE 28 MMOL/L (21-32); CHLORIDE 105 MMOL/L (98-107); CREATININE SERUM 0.61 MG/DL (0.60-1.30); GFR ESTIMATED > 60; GLUCOSE 95 MG/DL (70-105); POTASSIUM 4.2 MMOL/L (3.6-5.0); SODIUM 138 MMOL/L (135-145); TOTAL PROTEIN 5.4 GM/DL (6.4-8.2)
--- NOTE | 2020-02-28 12:34 | NUR ---
This RN spoke with Barbara, pt's sister, at this time and updates provided. Pt's family has no current questions at this time. Will continue to monitor.
--- NOTE | 2020-02-28 13:15 | Physical Therapy Daily Note ---
PT Daily Note-Current Subjective Patient sidelying left and agrees to PT. Currently on Vapotherm 90% Mental Status Patient Orientation: Normal For Age Attachments: Oxygen (vapotherm), Moody Catheter, IV Transfers SCALE: Activities may be completed with or without assistive devices. 5-Svlfddhcad-gslcksp completes the activity by him/herself with no assistance from a helper. 5-Set-up or Clean-up Assistance-helper sets up or cleans up; patient completes activity. [place] assists only prior to or following the activity. 4-Supervision or Touching Assistance-helper provides verbal cues and/or touching/steadying and/or contact guard assistance as patient completes activity. Assistance may be provided throughout the activity or intermittently. 3-Partial/Moderate Assistance-helper does LESS THAN HALF the effort. [place] lifts, holds or supports trunk or limbs, but provides less than half the effort. 2-Substantial/Maximal Assistance-helper does MORE THAN HALF the effort. [place] lifts or holds trunk or limbs and provides more than half the effort. 5-Bmzgpmzdn-mmakrl does ALL the effort. Patient does none of the effort to complete the activity. Or, the assistance of 2 or more helpers is required for the patient to complete the activity. If activity was not attempted, code reason: 7-Patient Refused. 9-Not Applicable-not attempted and the patient did not perform the activity before the current illness, exacerbation or injury. 10-Not Attempted due to Environmental Limitations-(lack of equipment, weather restraints, etc.). 88-Not Attempted due to Medical Conditions or Safety Concerns. Roll Left & Right (QC): 5 Exercises Supine Ex: Ankle pumps, Quad Set, Heel Slides Supine Reps: 5 Assessment PT reassessed patient who performed bilateral LE exercises in supine with SAO2 decreasing to 80% requiring patient to return to sidelying left which allow SAO2 to return to 89%. RN notified. PT to continue to address functional activity while monitoring pulmonary status. PT Civil Structural Designer Goals [facility] Goals PT Civil Structural Designer Goals Time Frame: Mar 08, 2020 Roll Left & Right (QC): 6 Sit to Lying (QC): 6 Lying-Sitting on Side/Bed(QC): 6 Sit to Stand (QC): 6 Chair/Ofr-vp-Burjj Xfer(QC): 6 Toilet Transfer (QC): 6 Car Transfer (QC): 6 Does the Patient Walk: Yes Walk 10 feet (QC): 6 Walk 50ft with 2 Turns (QC): 6 Walk 150 ft (QC): 6 PT Plan Treatment/Plan Treatment Plan: Continue Plan of Care Treatment Plan: Education, Functional Activity Gerry, Functional Strength, Gait, Safety, Therapeutic Exercise, Transfers Treatment Duration: Mar 08, 2020 Frequency: 6 times per week Estimated Hrs Per Day: .25 hour per day Patient and/or Family Agrees t: Yes Time/GCodes Time In: 1100 Time Out: 1110 Total Billed Treatment Time: 10 Total Billed Treatment 1 visit ReEval 10 min SHANTELL BURGESS PT Feb 28, 2020 13:15
[2020-02-28] MEDS ORDERED: TROUGH ORDER-PHARMACY XX NR (20:00)
[2020-02-29] VITALS (9 sets, daily range): BP systolic 97–121; BP diastolic 50–88
[2020-02-29] MEDS: RT-ALBUTEROL INHALER HFA (VENTOLIN HFA) 18 GM IH SCH ×6 (02:00→22:18)
[2020-02-29] MEDS: IPRATROPIUM INHALER (ATROVENT) 12.9 GM INH SCH ×6 (02:04→22:22)
[2020-02-29 05:03] LABS: HEMOGLOBIN 10.9 g/dL (11.5-16.0); WHITE BLOOD COUNT 12.8 10^3/uL (4.3-11.0)
[2020-02-29] MEDS: PIPERACILLIN/TAZO 4.5 GM/NS 100 ML IV SCH ×6 (07:16→22:38)
--- NOTE | 2020-02-29 09:06 | Pulmonary Progress Note ---
Sepsis Event Evaluation Height, Weight, BMI Height: 5'10.00" Weight: 168lbs. 0.0oz. 76.213232nv; 20.76 BMI Method:Stated Exam Exam Vital Signs Date Time Temp Pulse Resp B/P (MAP) Pulse Ox O2 Delivery O2 Flow Rate FiO2 02/29/20 07:47 36.3 73 20 112/63 (79) 96 NIV Bilevel 8.00 80.00 02/29/20 07:00 70 02/29/20 06:42 63 20 96 80.00 02/29/20 04:38 36.2 65 18 110/50 (70) 100 NIV Bilevel 8.00 80.00 02/29/20 02:04 71 26 96 80.00 02/29/20 02:00 62 22 100 100.00 02/29/20 01:00 61 02/29/20 00:12 36.2 70 20 105/55 (72) 90 NIV Bilevel 8.00 100.00 02/28/20 23:10 64 24 75 80.00 02/28/20 22:34 87 Vapotherm 40.00 90 02/28/20 22:32 87 Vapotherm 40.00 90 02/28/20 20:29 Vapotherm 90 02/28/20 19:02 36.2 58 20 105/55 (72) 94 Vapotherm 40.00 90.00 02/28/20 19:00 61 02/28/20 19:00 61 12 105/55 (72) 93 Vapotherm 30.00 90.00 02/28/20 18:54 92 Vapotherm 40.00 90 02/28/20 18:52 96 Vapotherm 40.00 90 02/28/20 12:30 71 02/28/20 11:41 35.9 02/28/20 11:00 56 28 104/52 (69) 88 Vapotherm 30.00 90.00 02/28/20 10:00 57 14 99/46 (63) 89 Vapotherm 30.00 90.00 I & O 02/29/20 07:00 Intake Total 1250 ml Output Total 965 ml Balance 285 ml Height & Weight Height: 5'10.00" Weight: 168lbs. 0.0oz. 76.955109qd; 20.76 BMI Method:Stated General Appearance: Mild Distress (appears weak and tired) HEENT: PERRL/EOMI, Moist Mucous Membranes Neck: Normal Inspection, Supple Respiratory: Decreased Breath Sounds; No Rhonci, No Wheezing Cardiovascular: Regular Rate, Rhythm, No Murmur Capillary Refill: Less Than 3 Seconds Gastrointestinal: normal bowel sounds, non tender, soft Extremity: Normal Capillary Refill, No Calf Tenderness, No Pedal Edema Neurologic/Psychiatric: Alert, Oriented x3 Results Lab Laboratory Tests 02/28/20 03:17 02/28/20 09:35 02/29/20 04:30 Assessment/Plan Assessment/Plan Acute hypoxic respiratory failure due to COVID19 BiPAP 85% Fi02 -DX with COVID 02/12 -Repeat DDIMER, PCT, and CXR. s/p remdesivir s/p convalescent plasma -Awake proning decadron MAT protocol Lovenox Tessalon for cough PNA -Repeat pierce cultures - Zosyn Debility -Consult PT/OT -Advance diet as tolerated Coag negative staph bacteremia probable contamination history of colon cancer s/p resection no acute management needs DVT ppx: KRISS Solo DO Feb 29, 2020 09:06
[2020-02-29] MEDS: FAMOTIDINE 20MG/2ML IV (PEPCID) IV SCH ×2 (09:13→20:25)
[2020-02-29] MEDS: ENOXAPARIN 60 MG/0.6 ML (LOVENOX) SYR SC SCH ×2 (09:14→20:25)
--- NOTE | 2020-02-29 09:55 | Diagnostic Imaging Report ---
INDICATION: Shortness of breath. TECHNIQUE: Single view chest 9:32 AM. CORRELATION STUDY: 02/27/2020 FINDINGS: Right IJ Nqwyip-i-Bmtx catheter tip over the SVC, stable. Cardiac enlargement and presence of pulmonary vascular congestion. Congestive changes slightly improved. Scattered patchy areas of infiltrate particularly mid and lower lung mckeon persisting may be slightly improved as well. IMPRESSION: 1. Bilateral pulmonary infiltrates are again demonstrated. Stable to perhaps minimally improved. Overall appears to be slightly less congestion as well. Dictated by: Dictated on workstation # [id number]
--- NOTE | 2020-02-29 11:22 | Physical Therapy Daily Note ---
PT Daily Note-Current Subjective Patient agrees to PT. Mental Status Patient Orientation: Normal For Age Attachments: Oxygen (vapotherm 100%), Moody Catheter, IV Transfers SCALE: Activities may be completed with or without assistive devices. 6-Ewnxiunmtd-cyvzxwe completes the activity by him/herself with no assistance from a helper. 5-Set-up or Clean-up Assistance-helper sets up or cleans up; patient completes activity. [place] assists only prior to or following the activity. 4-Supervision or Touching Assistance-helper provides verbal cues and/or touching/steadying and/or contact guard assistance as patient completes activity. Assistance may be provided throughout the activity or intermittently. 3-Partial/Moderate Assistance-helper does LESS THAN HALF the effort. [place] lifts, holds or supports trunk or limbs, but provides less than half the effort. 2-Substantial/Maximal Assistance-helper does MORE THAN HALF the effort. [place] lifts or holds trunk or limbs and provides more than half the effort. 8-Uqgzquech-ipbqvl does ALL the effort. Patient does none of the effort to complete the activity. Or, the assistance of 2 or more helpers is required for the patient to complete the activity. If activity was not attempted, code reason: 7-Patient Refused. 9-Not Applicable-not attempted and the patient did not perform the activity before the current illness, exacerbation or injury. 10-Not Attempted due to Environmental Limitations-(lack of equipment, weather restraints, etc.). 88-Not Attempted due to Medical Conditions or Safety Concerns. Exercises Supine Ex: Ankle pumps, Quad Set, Glut sets, Heel Slides, Straight leg raise, Hip abd/add Supine Reps: 12 (with recovery periods due to decrease in SAO2 with exercises to 82%) Assessment Patient tolerated treatment and instructed to perform exercises PRN. Patient voiced understanding. PT Gun Number Goals Gun Number Goals PT Gun Number Goals Time Frame: Mar 08, 2020 Roll Left & Right (QC): 6 Sit to Lying (QC): 6 Lying-Sitting on Side/Bed(QC): 6 Sit to Stand (QC): 6 Chair/Jit-pl-Jibic Xfer(QC): 6 Toilet Transfer (QC): 6 Car Transfer (QC): 6 Does the Patient Walk: Yes Walk 10 feet (QC): 6 Walk 50ft with 2 Turns (QC): 6 Walk 150 ft (QC): 6 PT Plan Treatment/Plan Treatment Plan: Continue Plan of Care Treatment Plan: Education, Functional Activity Gerry, Functional Strength, Gait, Safety, Therapeutic Exercise, Transfers Treatment Duration: Mar 08, 2020 Frequency: 6 times per week Estimated Hrs Per Day: .25 hour per day Patient and/or Family Agrees t: Yes Time/GCodes Time In: 940 Time Out: 955 Total Billed Treatment Time: 15 Total Billed Treatment 1 visit EX 15 min SHANTELL BURGESS PT Feb 29, 2020 11:22
[2020-03-01] VITALS (36 sets, daily range): BP systolic 75–128; BP diastolic 48–84
[2020-03-01 03:15] LABS: HEMOGLOBIN 9.9 g/dL (11.5-16.0); MEAN PLATELET VOLUME 10.3 fL (9.0-12.2); WHITE BLOOD COUNT 9.7 10^3/uL (4.3-11.0)
[2020-03-01] MEDS: IPRATROPIUM INHALER (ATROVENT) 12.9 GM INH SCH ×6 (03:43→22:28)
[2020-03-01] MEDS: RT-ALBUTEROL INHALER HFA (VENTOLIN HFA) 18 GM IH SCH ×6 (03:43→22:28)
[2020-03-01] MEDS: PIPERACILLIN/TAZO 4.5 GM/NS 100 ML IV SCH ×6 (09:38→22:59)
[2020-03-01] MEDS: FAMOTIDINE 20MG/2ML IV (PEPCID) IV SCH ×2 (09:38→20:06)
[2020-03-01] MEDS: ENOXAPARIN 60 MG/0.6 ML (LOVENOX) SYR SC SCH ×2 (09:39→20:06)
--- NOTE | 2020-03-01 10:30 | NUR ---
CHON NOTIFIES THIS RN OF PT TRANSFER TO ICU FOR INTUBATION AT THIS TIME. NEW ORDER FOR STAT ABG.
--- NOTE | 2020-03-01 11:49 | NUR ---
RT AT BEDSIDE. BIPAP SETTINGS INCREASED TO 100% WITH PEEP 10. O2 SATS REMAIN BETWEEN 83-85%. RT THEN CHANGES PT TO AVAPS Vt400, peep14, FiO2 100%, rate 22. O2 SATS STILL REMAIN 80-85% WITH THIS CHANGE WELL. PT TO BE TRANSFERRED TO ICU SOON ROOM IS AVAILABLE.
--- NOTE | 2020-03-01 11:55 | Physical Therapy Daily Note ---
PT Daily Note-Current Subjective Pt. in bed with BiPap in place, agrees to bed exercises. Transfers SCALE: Activities may be completed with or without assistive devices. 1-Lncdfbyhor-ofqxpsx completes the activity by him/herself with no assistance from a helper. 5-Set-up or Clean-up Assistance-helper sets up or cleans up; patient completes activity. [place] assists only prior to or following the activity. 4-Supervision or Touching Assistance-helper provides verbal cues and/or touching/steadying and/or contact guard assistance as patient completes activity. Assistance may be provided throughout the activity or intermittently. 3-Partial/Moderate Assistance-helper does LESS THAN HALF the effort. [place] lifts, holds or supports trunk or limbs, but provides less than half the effort. 2-Substantial/Maximal Assistance-helper does MORE THAN HALF the effort. [place] lifts or holds trunk or limbs and provides more than half the effort. 2-Cazkfmfvr-vxnjrd does ALL the effort. Patient does none of the effort to complete the activity. Or, the assistance of 2 or more helpers is required for the patient to complete the activity. If activity was not attempted, code reason: 7-Patient Refused. 9-Not Applicable-not attempted and the patient did not perform the activity before the current illness, exacerbation or injury. 10-Not Attempted due to Environmental Limitations-(lack of equipment, weather restraints, etc.). 88-Not Attempted due to Medical Conditions or Safety Concerns. Exercises Supine Ex: Ankle pumps, Quad Set, Heel Slides, Straight leg raise, Hip abd/add Supine Reps: 10 Treatments bed exercises only Assessment Current Status: Good Progress, Fair Progress Pt. on BiPap with O2 sats low 90's thus only bed exercises completed. Pt. does very well with exercises and given rest between sets of exercises as O2 sats would briefly dip to 89-90% occasionally, otherwise primarily maintained at 91- 92%. Pt. with all needs met post session. PT Operations Representative Goals Operations Representative Goals PT Operations Representative Goals Time Frame: Mar 08, 2020 Roll Left & Right (QC): 6 Sit to Lying (QC): 6 Lying-Sitting on Side/Bed(QC): 6 Sit to Stand (QC): 6 Chair/Yfs-pl-Yktya Xfer(QC): 6 Toilet Transfer (QC): 6 Car Transfer (QC): 6 Does the Patient Walk: Yes Walk 10 feet (QC): 6 Walk 50ft with 2 Turns (QC): 6 Walk 150 ft (QC): 6 PT Plan Treatment/Plan Treatment Plan: Continue Plan of Care Treatment Plan: Education, Functional Activity Gerry, Functional Strength, Gait, Safety, Therapeutic Exercise, Transfers Treatment Duration: Mar 08, 2020 Frequency: 6 times per week Estimated Hrs Per Day: .25 hour per day Patient and/or Family Agrees t: Yes Time/GCodes Time In: 1020 Time Out: 1030 Total Billed Treatment Time: 10 Total Billed Treatment 1, Ex 10' BRANDON VYAS PT Mar 01, 2020 11:55
[2020-03-01 12:08] LABS: ABG BASE EXCESS 4.1 MMOL/L (-2.5-2.5); ABG OXYGEN SATURATION 89 % (94-100); ABG PCO2 45 MMHG (35-45); ABG PH 7.42 (7.37-7.43); ABG PO2 56 MMHG (79-93); ABG TCO2 29.6 MMOL/L (21.0-31.0)
[2020-03-01 12:11] LABS: INSPIRED O2 90%; PATIENT TEMP 37.3; VENTILATOR NO
[2020-03-01] MEDS ORDERED: PROPOFOL DRIP (ICU) 100 ML IV ONE (12:13)
--- NOTE | 2020-03-01 12:15 | NUR ---
REPORT FROM GREGORY ENGLISH, WILL ASSUME CARE OF PATIENT AT THIS TIME.
[2020-03-01] MEDS ORDERED: NS IV 1000 ML 1,000 ML ONE (12:19)
[2020-03-01] MEDS ORDERED: fentaNYL DRIP PRE-MIX 250 ML IV ONE (12:28)
[2020-03-01] MEDS: PROPOFOL DRIP (ICU) 100 ML IV SCH (12:36)
[2020-03-01] MEDS: fentaNYL DRIP PRE-MIX 250 ML IV SCH (12:44)
[2020-03-01] MEDS: NS IV 1000 ML 1,000 ML IV SCH ×2 (13:00→20:05)
--- NOTE | 2020-03-01 13:00 | NUR ---
CALLED [facility] ABOUT FLUID RATE. SEE ORDERS.
--- NOTE | 2020-03-01 13:06 | Progress Note - Hospitalist ---
Subjective HPI/CC On Admission Date Seen by Provider: Mar 01, 2020 Time Seen by Provider: 10:25 Pt is a 74yoCF with a PMH of colon cancer s/p resection in 2017 who presented to the ER due to hypoxia. She was diagnosed with COVID a week and a day ago and had been monitoring her symptoms at home and was running around 85% and was ralph erating it so thought she was doing well. She continued to feel more weak though so decided to seek evaluation in the ER and on arrival had a sat of 72%. She was placed on 10lpm in the ER and was able to be titrated down to ~6lpm and was admitted to the floor. Overnight she became more hypoxic and was started on vapotherm. Since being on Vapotherm she states she feels better and is breathing easier. Her only other complaint is being tired from being up most of the night. Subjective/Events-last exam She is wearing BiPAP. She denies shortness of breath. She denies cough. She denies fevers. She is not having any leg swelling. We had a long discussion regarding mechanical ventilation. She would like a short-term trial of mechanical ventilation but if this fails we would not pursue long-term ventilation or tracheostomy. Objective Exam Vital Signs Vital Signs Date Time Temp Pulse Resp B/P (MAP) Pulse Ox O2 Delivery O2 Flow Rate FiO2 03/01/20 11:58 37.3 82 26 104/59 (74) 82 NIV Bilevel 100.00 03/01/20 08:00 100 Capillary Refill : Less Than 3 Seconds General Appearance: Anxious, Moderate Distress (tachypnea), Thin Respiratory: Decreased Breath Sounds, Respiratory Distress (tachypnea) Cardiovascular: Regular Rate, Rhythm, No Edema, No Murmur Gastrointestinal: Normal Bowel Sounds, Non Tender, Soft Extremity: Normal Inspection, Non Tender, No Pedal Edema Neurologic/Psychiatric: Alert, Oriented x3, No Motor/Sensory Deficits Skin: Normal Color, Warm/Dry Results/Procedures Lab Laboratory Tests 03/01/20 03:00 Patient resulted labs reviewed. Imaging: Reviewed Imaging Report Assessment/Plan Assessment and Plan Assess & Plan/Chief Complaint Acute respiratory distress syndrome due to COVID-19 Pneumonia Elevated d-dimer Hypercoagulable state associated with COVID-19 Poor prognosis Goals of care discussion Continue Decadron s/p Remdesivir s/p convalescent plasma Continue Zosyn Continue therapeutic Lovenox Transitioned to BiPAP this morning, nearly maximal support Increasing oxygen needs ABG consistent with severe hypoxemia, consistent with ARDS Transfer to ICU, will likely require intubation soon Goals of care discussion, patient would like short-term trial of mechanical ventilation Attempted to notify son, no answer Debility PT/OT History of colon cancer s/p colectomy Clinically significant, no acute management needs DVT Prophylaxis: already receiving therapeutic anticoagulation Diagnosis/Problems Diagnosis/Problems (1) Acute respiratory distress syndrome (ARDS) due to COVID-19 virus Status: Acute (2) Acute respiratory failure due to COVID-19 Status: Acute (3) PNA (pneumonia) Status: Acute (4) Elevated d-dimer Status: Acute (5) Hypercoagulable state associated with COVID-19 Status: Acute (6) Debility Status: Acute (7) Poor prognosis Status: Acute (8) Goals of care, counseling/discussion Status: Acute (9) History of colon cancer Status: Chronic (10) S/P colectomy Status: Chronic Clinical Quality Measures DVT/VTE Risk/Contraindication: Risk Factor Score Per Nursin RFS Level Per Nursing on Admit: 4+=Very High XUAN GIVENS MD Mar 01, 2020 13:06
[2020-03-01] MEDS ORDERED: PROPOFOL DRIP (ICU) 100 ML IV SCH ×2 (13:15)
--- NOTE | 2020-03-01 13:31 | Diagnostic Imaging Report ---
INDICATION: Post intubation. TECHNIQUE: Single view chest 1:11 PM. CORRELATION STUDY: 02/29/2020 FINDINGS: Endotracheal tube has been placed tip projecting over the trachea interposed just below the clavicles. Gastric tube has also been placed. This is projecting over the lower mid chest likely proximal to the gastroesophageal junction, appears to need to be advanced at least 15 cm positioning into the stomach. Right IJ Hyfpsq-r-Pdlb catheter stable. Heart size remains enlarged. Vasculature is congested. Extensive patchy bilateral pulmonary infiltrates are again demonstrated. These remain most pronounced in mid and lower lung mckeon left slightly greater than right. These appear to be superimposed on chronic lung disease. IMPRESSION: 1. Interval intubation. 2. Gastric tube is also in place. Tip is noted be expected location of the low esophagus. 3. Extensive bilateral pulmonary infiltrates persisting perhaps minimally improved. Dictated by: Dictated on workstation # [id number]
--- NOTE | 2020-03-01 13:32 | NUR ---
ATTEMPTED TO NOTIFY PT SON OF PT'S MOVE TO ICU AND INTUBATION. NO ANSWER. THIS RN THEN CALLED PT'S SISTER, JESSICA, AND WAS ABLE TO NOTIFY AND EXPLAIN THAT PT WAS UNABLE TO KEEP O2 SATS ABOVE 84% ON THE BIPAP AND THAT PT CHOSE TO BE INTUBATED FOLLOWING HER DISCUSSION OF PROS AND CONS WITH HER PROVIDER. FAMILY VERBALIZES UNDERSTANDING.
[2020-03-01 13:40] LABS: BASOPHILS % (AUTO) 0 % (0-10); EOSINOPHILS % (AUTO) 0 % (0-10); HEMATOCRIT 32 % (35-52); HEMOGLOBIN 10.5 g/dL (11.5-16.0); LYMPHOCYTES # (AUTO) 0.2 10^3/uL (1.0-4.0); LYMPHOCYTES % (AUTO) 2 % (12-44); MEAN CORPUSCULAR HEMOGLOBIN 30 pg (25-34); MEAN CORPUSCULAR HGB CONC 33 g/dL (32-36); MEAN CORPUSCULAR VOLUME 91 fL (80-99); MEAN PLATELET VOLUME 9.8 fL (9.0-12.2); MONOCYTES # (AUTO) 0.5 10^3/uL (0.0-1.0); MONOCYTES % (AUTO) 3 % (0-12); NEUTROPHILS # (AUTO) 15.2 10^3/uL (1.8-7.8); NEUTROPHILS % (AUTO) 94 % (42-75); PLATELET COUNT 134 10^3/uL (130-400); WHITE BLOOD COUNT 16.1 10^3/uL (4.3-11.0)
[2020-03-01 13:52] LABS: CHLORIDE 103 MMOL/L (98-107); POTASSIUM 4.4 MMOL/L (3.6-5.0); SODIUM 136 MMOL/L (135-145)
[2020-03-01 13:53] LABS: CALCIUM 7.9 MG/DL (8.5-10.1); GLUCOSE 133 MG/DL (70-105)
[2020-03-01 13:54] LABS: TRIGLYCERIDES 93 MG/DL (<150)
[2020-03-01 13:55] LABS: CARBON DIOXIDE 25 MMOL/L (21-32)
[2020-03-01 13:56] LABS: BAND NEUTROPHILS 1 %; LYMPHOCYTES % (MANUAL) 1 %; MONOCYTES % (MANUAL) 2 %; NEUTROPHILS % (MANUAL) 96 %; RBC MORPH NORMAL
[2020-03-01 13:57] LABS: CREATININE SERUM 0.66 MG/DL (0.60-1.30); GFR ESTIMATED > 60
[2020-03-01 13:58] LABS: BUN/CREATININE RATIO 27
[2020-03-01 13:59] LABS: MAGNESIUM 1.9 MG/DL (1.6-2.4)
[2020-03-01 14:37] LABS: ABG BASE EXCESS 1.3 MMOL/L (-2.5-2.5); ABG OXYGEN SATURATION 99 % (94-100); ABG PO2 138 MMHG (79-93); ABG TCO2 30.8 MMOL/L (21.0-31.0)
[2020-03-01 14:42] LABS: ABG PCO2 71 MMHG (35-45); ABG PH 7.22 (7.37-7.43); ALLENS TEST YES-POS
[2020-03-01 14:43] LABS: INSPIRED O2 100%; PATIENT TEMP 36.1; VENTILATOR YES
--- NOTE | 2020-03-01 15:50 | NUR ---
TIME LINE NOTE: 1445:RESULTS FROM LAB PH: 7.22 PCO2: 71 1540: TALKED WITH EICU. SEE EMAR.
[2020-03-01] MEDS ORDERED: fentaNYL INJECTION 100 MCG/2 ML AMP IVP PRN (16:00)
[2020-03-01] MEDS ORDERED: MIDAZOLAM 5 MG/5 ML (VERSED) VIAL IJ ONE (16:23)
[2020-03-01] MEDS ORDERED: fentaNYL INJECTION 100 MCG/2 ML AMP IV ONE (16:23)
[2020-03-01] MEDS: NOREPINEPHRINE 4 MG/250 ML 250 ML IV SCH (16:55)
--- NOTE | 2020-03-01 17:15 | NUR ---
TIMELINE NOTE: ALL ORDERS FROM EICU 1217: PT FROM ROOM 510 TO CU2. 86% ON BIPAP 100% HR 82 BP 75/48 R 33 1222: EICU ON CAMERA IN ROOM NS 1000 L BOLUS 22 IV L WRIST 20 IV R WRIST VERSED UP TO 10 MG FENT 50 1232: 50 FENTANYL (BP 109/63; 87% ON BIPAP; 69 HR; R 29) 1233: 2 VERSED 1233: 2 VERSED 1234: 2 VERSED 1235: BAGGING 1240: 8 ET TUBE WITH COLOR CHANGE. 22 AT LIP BREATH SOUNDS 1247: RESTRAINTS APPLIED. Addendum: 03/01/20 at 1812 by BRANDON GORDON RN 1222: VERSED UP TO 10 MG- 4 GIVEN NOW FENT 50- 25 MCG 1242: OGT IN PLACE 16 FR 1243: TV 400 PEEP 15 RATE 18 HR 96 90% 1244: FENT @ 50 MCG/HR 1246: PROP 10 MCG: BP 75/48 1254: HR 82; 81/56; R 17; 90% 1304: CALLED FAMILY (JESSICA)
[2020-03-01] MEDS: inSUlin ASPART (NovoLOG) 1 UNIT/0.01 ML (CHARGE PER UNIT) SQ SCH ×2 (18:05→23:38)
--- NOTE | 2020-03-01 19:42 | Diagnostic Imaging Report ---
INDICATION: Evaluate gastric tube. COMPARISON: Earlier the same day. EXAMINATION: Single frontal radiographic view of the chest was obtained and demonstrates indwelling endotracheal tube at the lower level of the clavicular heads. Gastric tube is also seen with tip at the esophageal hiatus. Right internal jugular Port-A-Cath is noted. Lungs continue show diffuse scattered patchy and confluent interstitial infiltrates. There has been no significant change since previous exam from earlier the same day. There is no large effusion or pneumothorax. Cardiac silhouette and pulmonary vasculature are within normal limits. IMPRESSION: 1. Lines and tubes as above. 2. Persistent diffuse patchy and confluent infiltrates. Dictated by: Dictated on workstation # [id number]
[2020-03-01 20:40] LABS: ABG OXYGEN SATURATION 96 % (94-100); ABG PCO2 56 MMHG (35-45); ABG PO2 76 MMHG (79-93); ABG TCO2 28.8 MMOL/L (21.0-31.0)
[2020-03-01 20:41] LABS: INSPIRED O2 80; PATIENT TEMP 35.8; VENTILATOR YES
--- NOTE | 2020-03-01 20:45 | NUR ---
E-ICU CALLED AND INFORMED OF CRITICAL pH-7.30 AND THAT CHEST X-RAY HAD BEEN RESULTED FOR TO READ REPORT.
--- NOTE | 2020-03-01 21:00 | NUR ---
SPOKE WITH PATIENT'S SISTER, JESSICA. PASSWORD VERIFIED. UPDATED HER ON PATIENT CONDITION.
[2020-03-02] VITALS (71 sets, daily range): BP systolic 75–122; BP diastolic 43–72
[2020-03-02] MEDS: PROPOFOL DRIP (ICU) 100 ML IV SCH ×3 (01:13→17:28)
[2020-03-02] MEDS: fentaNYL DRIP PRE-MIX 250 ML IV SCH ×2 (01:18→13:30)
[2020-03-02] MEDS: IPRATROPIUM INHALER (ATROVENT) 12.9 GM INH SCH ×6 (02:03→22:43)
[2020-03-02] MEDS: RT-ALBUTEROL INHALER HFA (VENTOLIN HFA) 18 GM IH SCH ×6 (02:03→22:42)
[2020-03-02] MEDS: NOREPINEPHRINE 4 MG/250 ML 250 ML IV SCH ×3 (02:24→17:34)
[2020-03-02 02:26] LABS: BASOPHILS % (AUTO) 0 % (0-10); EOSINOPHILS % (AUTO) 0 % (0-10); HEMATOCRIT 31 % (35-52); HEMOGLOBIN 9.9 g/dL (11.5-16.0); LYMPHOCYTES # (AUTO) 0.3 10^3/uL (1.0-4.0); LYMPHOCYTES % (AUTO) 1 % (12-44); MEAN CORPUSCULAR HEMOGLOBIN 30 pg (25-34); MEAN CORPUSCULAR HGB CONC 33 g/dL (32-36); MEAN CORPUSCULAR VOLUME 93 fL (80-99); MEAN PLATELET VOLUME 9.7 fL (9.0-12.2); MONOCYTES # (AUTO) 0.7 10^3/uL (0.0-1.0); MONOCYTES % (AUTO) 3 % (0-12); NEUTROPHILS # (AUTO) 19.4 10^3/uL (1.8-7.8); NEUTROPHILS % (AUTO) 95 % (42-75); PLATELET COUNT 168 10^3/uL (130-400); WHITE BLOOD COUNT 20.5 10^3/uL (4.3-11.0)
[2020-03-02 02:34] LABS: CHLORIDE 108 MMOL/L (98-107); POTASSIUM 4.1 MMOL/L (3.6-5.0); SODIUM 139 MMOL/L (135-145)
[2020-03-02 02:35] LABS: CALCIUM 7.4 MG/DL (8.5-10.1)
[2020-03-02 02:36] LABS: GLUCOSE 123 MG/DL (70-105)
[2020-03-02 02:37] LABS: CARBON DIOXIDE 23 MMOL/L (21-32)
[2020-03-02 02:40] LABS: BUN/CREATININE RATIO 29; CREATININE SERUM 0.68 MG/DL (0.60-1.30); GFR ESTIMATED > 60
[2020-03-02 02:42] LABS: MAGNESIUM 1.7 MG/DL (1.6-2.4)
--- NOTE | 2020-03-02 02:45 | NUR ---
CALLED E-ICU AND INFORMED THEM OF LOW URINE OUTPUT-100ML OVER THE LAST 2 HOURS AND THAT THERE IS BRIGHT RED BLOOD IN THE PATIENT'S OG TUBING. RECEIVED ORDER FOR 500ML NS BOLUS. Addendum: 03/02/20 at 0357 by ANDREA SANTOS RN CORRECTION-INFORMED E-ICU OF 100ML URINE OVER THE PAST FOUR HOURS.
[2020-03-02] MEDS: POTASSIUM CL 10MEQ/50ML IVPB 50 ML IV SCH (02:49)
[2020-03-02] MEDS: MAGNESIUM 1 GM/100 ML IVPB 100 ML IV SCH ×3 (02:49→05:40)
[2020-03-02] MEDS: KCL 20 MEQ TAB (K-DUR) PO SCH (02:49)
[2020-03-02] MEDS: NS IV 500 ML 500 ML IV SCH ×2 (03:16→20:00)
--- NOTE | 2020-03-02 04:49 | NUR ---
CALLED E-ICU TO INFORM THAT BOLUS RESULTED IN 40ML OF URINE. RECEIVED ORDER TO CONTINUE TO MONITOR URINE OUTPUT.
[2020-03-02 05:49] LABS: ABG BASE EXCESS -0.1 MMOL/L (-2.5-2.5); ABG OXYGEN SATURATION 99 % (94-100); ABG PCO2 54 MMHG (35-45); ABG PO2 134 MMHG (79-93); ABG TCO2 27.2 MMOL/L (21.0-31.0)
[2020-03-02 05:50] LABS: INSPIRED O2 70; PATIENT TEMP 36.9; VENTILATOR YES
--- NOTE | 2020-03-02 05:55 | NUR ---
E-ICU NOTIFIED OF CRITICAL pH-7.30
[2020-03-02] MEDS: inSUlin ASPART (NovoLOG) 1 UNIT/0.01 ML (CHARGE PER UNIT) SQ SCH ×4 (06:45→23:31)
[2020-03-02] MEDS: PIPERACILLIN/TAZO 4.5 GM/NS 100 ML IV SCH ×6 (07:27→22:28)
[2020-03-02] MEDS: ENOXAPARIN 60 MG/0.6 ML (LOVENOX) SYR SC SCH ×2 (08:12→20:01)
[2020-03-02] MEDS: FAMOTIDINE 20MG/2ML IV (PEPCID) IV SCH ×2 (08:13→20:00)
--- NOTE | 2020-03-02 08:45 | NUR ---
EICU NOTIFIED ABOUT PATIENT HAVING LOW URINE OUTPUT AND DISCUSSED PRONING PATIENT. RECEIVED ORDER TO PRONE PATIENT AFTER ADVANCING OGT AND CXR OF TUBE PLACEMENT.
[2020-03-02] MEDS ORDERED: PANTOPRAZOLE 40 MG (PROTONIX) VIAL IV SCH ×2 (09:00)
--- NOTE | 2020-03-02 09:30 | Diagnostic Imaging Report ---
EXAMINATION: Chest radiograph, portable AP view. DATE: 03/02/2020 9:20 AM INDICATION: 74-year-old female, tube placement. COMPARISON: March 01, 2020. FINDINGS: The endotracheal tube is approximately 4.5 cm above the pam. The nasogastric tube side-port is at the level of the gastroesophageal junction, consider advancement. There is a right-sided Port-A-Cath tip overlies the upper SVC. There is gas in the right lower neck and right chest wall which is an interval change. There are areas of lucency projecting at the inferior aspect of the heart likely relating to pneumomediastinum. There is multifocal bilateral lung consolidation. There is also gas in the left lower neck. IMPRESSION: 1. Interval development of gas in the right and left neck and right chest wall with probable pneumomediastinum. 2. Extensive multifocal bilateral lung consolidation which is essentially unchanged. Called to Letty at 9:26 a.m. by cvb. Dictated by: Dictated on workstation # [id number]
--- NOTE | 2020-03-02 09:34 | NUR ---
CXR RESULTS CALLED TO EICU AT THIS TIME. RECEIVED ORDERS NOT TO PRONE PATIENT AT THIS TIME. SEE CHART FOR OTHER ORDERS.
--- NOTE | 2020-03-02 09:42 | NUR ---
FELT SUBQ EMPHYSEMA R NECK AND CLAVICLE, AND L CLAVICLE, HAD ANOTHER RN VERIFY WITH THIS RN.
[2020-03-02] MEDS: NS IV 1000 ML 1,000 ML IV SCH (10:43)
--- NOTE | 2020-03-02 11:49 | Progress Note - Hospitalist ---
Subjective HPI/CC On Admission Date Seen by Provider: Mar 02, 2020 Time Seen by Provider: 11:00 Pt is a 74yoCF with a PMH of colon cancer s/p resection in 2017 who presented to the ER due to hypoxia. She was diagnosed with COVID a week and a day ago and had been monitoring her symptoms at home and was running around 85% and was ralph erating it so thought she was doing well. She continued to feel more weak though so decided to seek evaluation in the ER and on arrival had a sat of 72%. She was placed on 10lpm in the ER and was able to be titrated down to ~6lpm and was admitted to the floor. Overnight she became more hypoxic and was started on vapotherm. Since being on Vapotherm she states she feels better and is breathing easier. Her only other complaint is being tired from being up most of the night. Subjective/Events-last exam Patient maintained on vent PEEP 12 FiO2 60% CXR at 1300 to evaluate SQ emphysema and may need a chest tube so consulted Dr Kelley Objective Exam Vital Signs Vital Signs Date Time Temp Pulse Resp B/P (MAP) Pulse Ox O2 Delivery O2 Flow Rate FiO2 03/02/20 20:09 Mechanical Ventilator 40.00 03/02/20 20:07 57 122/63 03/02/20 20:00 94 40 03/02/20 19:39 36.7 03/02/20 18:24 18 Capillary Refill : Less Than 3 Seconds General Appearance: No Apparent Distress, WD/WN, Chronically ill, Other (sedated) Respiratory: Decreased Breath Sounds Cardiovascular: Regular Rate, Rhythm Results/Procedures Lab Laboratory Tests 03/02/20 02:15 Patient resulted labs reviewed. Imaging: Reviewed Imaging Report Assessment/Plan Assessment and Plan Assess & Plan/Chief Complaint Assessment: Acute respiratory distress syndrome due to COVID-19 Pneumonia Elevated d-dimer Hypercoagulable state associated with COVID-[address] De note: Goals of care discussion Continue Decadron s/p Remdesivir s/p convalescent plasma Continue Zosyn Continue therapeutic Lovenox Transitioned to BiPAP this morning, nearly maximal support Increasing oxygen needs ABG consistent with severe hypoxemia, consistent with ARDS Transfer to ICU for intubation Goals of care discussion, patient would like short-term trial of mechanical ventilation Attempted to notify son, no answer Debility PT/OT History of colon cancer s/p colectomy Clinically significant, no acute management needs DVT Prophylaxis: already receiving therapeutic anticoagulation Clinical Quality Measures DVT/VTE Risk/Contraindication: Risk Factor Score Per Nursin RFS Level Per Nursing on Admit: 4+=Very High MARK OLIVEROS DO Mar 02, 2020 11:49
--- NOTE | 2020-03-02 13:23 | Diagnostic Imaging Report ---
CHEST 1 VIEW, AP/PA ONLY Indication: Pneumothorax Comparison: 03/02/2020 Findings: Stable ET and enteric tubes. Stable right IJ Port-A-Cath. Small right apical pneumothorax is unchanged. Potential trace left apical pneumothorax. Pneumomediastinum is stable. Bilateral perihilar and basilar pulmonary consolidations are similar. Chest wall gas is stable. Impression: 1. No change in small right apical pneumothorax and potential trace left apical pneumothorax. 2. Extensive pneumomediastinum likely due to barotrauma from intubation. Dictated by: Dictated on workstation # [id number]
--- NOTE | 2020-03-02 14:08 | NUR ---
CALLED EICU ABOUT REPEAT CXR, NO NEW ORDERS AT THIS TIME.
--- NOTE | 2020-03-02 15:59 | NUR ---
SPOKE WITH FAMILY FOR UPDATE AT THIS TIME.
--- NOTE | 2020-03-02 16:20 | CONSULTATION REPORT ---
DATE OF SERVICE: ADMITTING PHYSICIAN: Dr. Staton. ATTENDING PRIMARY CARE PHYSICIAN Dr. Deyanira Garza. HISTORY OF PRESENT ILLNESS: The patient is a 74-year-old female, who presented to the Emergency Department with hypoxia. She was diagnosed with coronavirus on 02/12. She was treated and monitored at home and her oxygen saturations were around 85% and for the most part was tolerating this; however, over time, she felt more weak as well as more short of breath and she presented to the Emergency Department and was found to have an oxygen saturation of 72% and she was placed on supplemental oxygen. She did become more hypoxic overnight and was started on Vapotherm. Her respiratory status continued to decline eventually requiring endotracheal intubation as well as increased and expiratory pressure. Staff has noticed that the patient does have some subcutaneous emphysema in the superior aspect of the shoulders, neck as well as the anterior chest bilaterally. X-ray was performed yesterday, which did not show any significant pneumothorax as well as subcutaneous emphysema. A repeat chest x-ray was performed today, which does show a small sliver of a right pneumothorax and nothing on the left. The subcutaneous emphysema is most likely secondary to a barotrauma at the small alveoli level as well as the parietal pleura level allowing air to seep out and cause a subcutaneous emphysema. She is currently stable on her current ventilator settings. PAST MEDICAL HISTORY: History of colon cancer and renal cell cancer status post resection and chemotherapy, tonsillectomy. None. ALLERGIES: No known drug allergies. MEDICATIONS: Dexamethasone 6 mg daily, fluticasone/salmeterol 2 puffs b.i.d., multivitamin daily. SOCIAL HISTORY: Previous smoker, quit 1977. Negative alcohol. FAMILY HISTORY: Noncontributory. VITAL SIGNS: Temperature 37.6, blood pressure 105/56, pulse 66, respirations 19, pulse ox 94% on 40% FiO2 on the ventilator. REVIEW OF SYSTEMS: This is a patient who is on a ventilator and sedated. She does not appear to be in any acute distress. She does have bilateral coarse breath sounds as well as mild crepitance of the superior aspect of the shoulder, neck as well as the anterior chest bilaterally. ABDOMEN: Soft. She is not experiencing any significant NG tube aspirate or any diarrhea. No recent inadvertent weight loss. PHYSICAL EXAMINATION: CHEST: Coarse breath sounds bilaterally. HEART: Regular, no murmurs. EXTREMITIES: A +1/3 bilateral lower extremity edema, negative Homans sign. HEENT: No scleral icterus. NECK: No cervical lymphadenopathy. ABDOMEN: Soft, nontender, nondistended. SKIN: Warm, dry. LABORATORY DATA: WBC 20.5, hemoglobin 9.9, hematocrit 31, platelets 168, BUN 20, creatinine 0.68. Arterial blood gas shows that she is still acidotic with a pH of 7.3, pCO2 of 54 and a pO2 of 134, so she is continuing to retain carbon dioxide. ASSESSMENT AND PLAN: A 74-year-old female with coronavirus-19 ARDS. RECOMMENDATIONS: At this time is to continue with her current critical care management. The subcutaneous emphysema, likely secondary to the barotrauma of small, visceral peritoneum perforation at the alveolar level as well as small openings in the parietal pleura causing the subcutaneous emphysema. She does not have any significant pneumothorax. If her subcutaneous emphysema continues to worsen, then we would recommend placement of bilateral chest tubes for decompression of the pleural space as well as the skin openings along the skin of the chest wall and subcutaneous tissue to allow for slow and gradual escape of the subcutaneous air or what we call blow-hole incisions. We will continue to monitor her progress. Job ID: [id number] DocumentID: [id number] Dictated Date: 03/02/2020 15:40:36 [employer] Date: 03/02/2020 16:19:41 Dictated By: ARNIE ORELLANA MD
[2020-03-03] VITALS (33 sets, daily range): BP systolic 91–131; BP diastolic 46–71
[2020-03-03] MEDS: NS IV 1000 ML 1,000 ML IV SCH ×2 (01:01→12:45)
[2020-03-03] MEDS: RT-ALBUTEROL INHALER HFA (VENTOLIN HFA) 18 GM IH SCH ×6 (02:03→22:39)
[2020-03-03] MEDS: IPRATROPIUM INHALER (ATROVENT) 12.9 GM INH SCH ×6 (02:03→22:41)
[2020-03-03] MEDS: fentaNYL DRIP PRE-MIX 250 ML IV SCH ×2 (02:16→12:44)
[2020-03-03] MEDS: NOREPINEPHRINE 4 MG/250 ML 250 ML IV SCH ×3 (02:16→22:38)
[2020-03-03 02:19] LABS: BASOPHILS % (AUTO) 0 % (0-10); EOSINOPHILS % (AUTO) 0 % (0-10); HEMATOCRIT 30 % (35-52); HEMOGLOBIN 9.4 g/dL (11.5-16.0); LYMPHOCYTES # (AUTO) 0.3 10^3/uL (1.0-4.0); LYMPHOCYTES % (AUTO) 2 % (12-44); MEAN CORPUSCULAR HEMOGLOBIN 30 pg (25-34); MEAN CORPUSCULAR HGB CONC 32 g/dL (32-36); MEAN CORPUSCULAR VOLUME 96 fL (80-99); MEAN PLATELET VOLUME 9.8 fL (9.0-12.2); MONOCYTES # (AUTO) 0.4 10^3/uL (0.0-1.0); MONOCYTES % (AUTO) 3 % (0-12); NEUTROPHILS # (AUTO) 12.3 10^3/uL (1.8-7.8); NEUTROPHILS % (AUTO) 94 % (42-75); PLATELET COUNT 124 10^3/uL (130-400); WHITE BLOOD COUNT 13.1 10^3/uL (4.3-11.0)
[2020-03-03 02:30] LABS: CHLORIDE 113 MMOL/L (98-107); POTASSIUM 4.7 MMOL/L (3.6-5.0); SODIUM 144 MMOL/L (135-145)
[2020-03-03 02:31] LABS: CALCIUM 7.8 MG/DL (8.5-10.1)
[2020-03-03 02:32] LABS: GLUCOSE 119 MG/DL (70-105); TRIGLYCERIDES 102 MG/DL (<150)
[2020-03-03 02:33] LABS: CARBON DIOXIDE 24 MMOL/L (21-32)
[2020-03-03 02:35] LABS: PHOSPHORUS 2.3 MG/DL (2.3-4.7)
[2020-03-03 02:36] LABS: CREATININE SERUM 0.68 MG/DL (0.60-1.30); GFR ESTIMATED > 60
[2020-03-03 02:37] LABS: BUN/CREATININE RATIO 25
[2020-03-03 02:38] LABS: MAGNESIUM 2.2 MG/DL (1.6-2.4)
[2020-03-03 02:46] LABS: ABG BASE EXCESS -1.2 MMOL/L (-2.5-2.5); ABG OXYGEN SATURATION 91 % (94-100); ABG PCO2 67 MMHG (35-45); ABG PO2 65 MMHG (79-93); ABG TCO2 28.2 MMOL/L (21.0-31.0); ALLENS TEST POSITIVE; INSPIRED O2 45; PATIENT TEMP 36.3; VENTILATOR YES
[2020-03-03 02:48] LABS: ABG PH 7.21 (7.37-7.43)
[2020-03-03] MEDS: PROPOFOL DRIP (ICU) 100 ML IV SCH ×3 (02:53→16:40)
[2020-03-03] MEDS: MAGNESIUM 1 GM/100 ML IVPB 100 ML IV SCH (02:54)
[2020-03-03] MEDS: inSUlin ASPART (NovoLOG) 1 UNIT/0.01 ML (CHARGE PER UNIT) SQ SCH ×3 (02:54→17:46)
[2020-03-03] MEDS: POTASSIUM CL 10MEQ/50ML IVPB 50 ML IV SCH (02:54)
[2020-03-03] MEDS: KCL 20 MEQ TAB (K-DUR) PO SCH (02:54)
--- NOTE | 2020-03-03 03:58 | Pulmonary Progress Note ---
Subjective Time Seen by a Provider: 03:53 Subjective/Events-last exam Pt was intubated on Tuesday. Sepsis Event Evaluation Height, Weight, BMI Height: 5'10.00" Weight: 168lbs. 0.0oz. 76.368352qm; 20.76 BMI Method:Stated Exam Exam Vital Signs Date Time Temp Pulse Resp B/P (MAP) Pulse Ox O2 Delivery O2 Flow Rate FiO2 03/03/20 02:53 63 106/50 03/03/20 02:16 71 78/41 03/03/20 02:03 67 18 91 40 03/03/20 01:00 65 03/02/20 23:00 62 18 102/60 (74) 92 Mechanical Ventilator 40.00 03/02/20 22:34 58 18 92 40 03/02/20 22:00 60 18 110/62 (78) 94 Mechanical Ventilator 40.00 03/02/20 21:00 60 17 105/57 (73) 93 Mechanical Ventilator 40.00 03/02/20 20:15 58 18 114/61 (78) 93 Mechanical Ventilator 40.00 03/02/20 20:09 Mechanical Ventilator 40.00 03/02/20 20:07 57 122/63 03/02/20 20:07 59 122/63 03/02/20 20:00 58 18 122/63 (83) 93 Mechanical Ventilator 60.00 03/02/20 20:00 94 Mechanical Ventilator 40 03/02/20 19:45 59 17 105/72 (81) 94 Mechanical Ventilator 60.00 03/02/20 19:39 36.7 03/02/20 19:30 59 18 114/61 (85) 93 Mechanical Ventilator 60.00 03/02/20 19:15 62 17 110/60 (84) 93 Mechanical Ventilator 60.00 03/02/20 19:00 61 03/02/20 19:00 61 17 116/59 (87) 93 Mechanical Ventilator 60.00 03/02/20 18:24 66 18 92 40 03/02/20 18:00 64 18 107/59 (82) 93 Mechanical Ventilator 60.00 03/02/20 17:45 61 16 116/61 (80) 93 03/02/20 17:34 65 110/60 03/02/20 17:30 64 18 110/60 (84) 92 03/02/20 17:28 65 109/62 03/02/20 17:15 63 16 109/62 (81) 94 03/02/20 17:00 65 18 114/59 (82) 93 Mechanical Ventilator 60.00 03/02/20 16:45 61 16 109/58 (81) 93 03/02/20 16:30 66 17 115/63 (85) 94 03/02/20 16:15 65 16 110/60 (84) 93 03/02/20 16:00 64 18 107/60 (83) 93 Mechanical Ventilator 60.00 03/02/20 15:52 36.7 03/02/20 15:45 63 16 107/65 (82) 94 03/02/20 15:30 63 18 107/61 (83) 94 03/02/20 15:15 68 19 107/61 (80) 93 03/02/20 15:00 66 18 107/60 (79) 94 Mechanical Ventilator 60.00 03/02/20 14:45 66 16 107/59 (78) 94 03/02/20 14:35 66 19 94 40 03/02/20 14:30 106/64 (81) 03/02/20 14:15 62 20 105/60 (78) 95 03/02/20 14:00 65 18 107/58 (79) 95 Mechanical Ventilator 60.00 03/02/20 13:45 66 18 103/64 (81) 95 03/02/20 13:30 67 15 103/57 (74) 94 03/02/20 13:15 69 18 105/57 (74) 94 03/02/20 13:00 71 16 105/56 (75) 95 Mechanical Ventilator 60.00 03/02/20 12:45 73 16 104/58 (74) 95 03/02/20 12:34 75 03/02/20 12:30 106/56 (75) 03/02/20 12:15 74 19 102/57 (76) 94 03/02/20 12:00 74 14 103/57 (72) 92 Mechanical Ventilator 60.00 03/02/20 11:45 75 16 103/55 (78) 93 03/02/20 11:42 37.6 03/02/20 11:30 78 16 99/52 (72) 93 03/02/20 11:15 73 16 101/57 (75) 95 03/02/20 11:10 74 19 98 40 03/02/20 11:00 70 21 103/56 (74) 100 Mechanical Ventilator 60.00 03/02/20 10:45 76 18 86/48 (61) 100 03/02/20 10:44 75 75/43 03/02/20 10:30 90 19 75/43 (52) 94 03/02/20 10:15 76 18 109/54 (73) 97 03/02/20 10:00 76 15 101/58 (72) 98 Mechanical Ventilator 60.00 03/02/20 09:45 75 18 102/56 (70) 99 03/02/20 09:30 77 18 102/58 (70) 98 03/02/20 09:16 82 108/61 03/02/20 09:15 81 15 108/61 (76) 98 03/02/20 09:00 80 16 110/65 (71) 95 Mechanical Ventilator 60.00 03/02/20 08:45 81 20 98/56 (68) 97 03/02/20 08:30 80 20 96/57 (72) 96 03/02/20 08:15 82 24 98/56 (68) 95 03/02/20 08:07 95 Mechanical Ventilator 60 03/02/20 08:00 84 16 94/54 (70) 96 Mechanical Ventilator 60.00 03/02/20 07:55 83 17 98/54 (66) 96 03/02/20 07:49 82 21 96 60 03/02/20 07:45 85 16 91/52 (62) 96 03/02/20 07:30 86 17 93/54 (64) 97 03/02/20 07:15 80 16 92/56 (65) 96 03/02/20 07:00 81 20 95/55 (64) 96 Mechanical Ventilator 60.00 03/02/20 07:00 85 03/02/20 06:45 80 14 91/55 (67) 96 03/02/20 06:30 82 14 94/54 (67) 96 03/02/20 06:15 83 19 96/57 (70) 96 03/02/20 06:00 85 14 103/60 (74) 96 Mechanical Ventilator 60.00 03/02/20 05:39 Mechanical Ventilator 60.00 03/02/20 05:00 82 18 103/58 (73) 98 Mechanical Ventilator 70.00 03/02/20 04:00 78 14 99/64 (76) 99 Mechanical Ventilator 70.00 I & O 03/03/20 07:00 Intake Total 1920 ml Output Total 835 ml Balance 1085 ml Height & Weight Height: 5'10.00" Weight: 168lbs. 0.0oz. 76.108045wz; 20.76 BMI Method:Stated General Appearance: No Apparent Distress, WD/WN, Chronically ill, Other (sedated) HEENT: PERRL/EOMI, Moist Mucous Membranes Neck: Normal Inspection, Supple Respiratory: Decreased Breath Sounds Cardiovascular: Regular Rate, Rhythm Capillary Refill: Less Than 3 Seconds Gastrointestinal: normal bowel sounds, non tender, soft Extremity: Normal Inspection, Non Tender, No Pedal Edema Neurologic/Psychiatric: Alert, Oriented x3, No Motor/Sensory Deficits Skin: Normal Color, Warm/Dry Results Lab Laboratory Tests 03/01/20 13:30 03/02/20 02:15 03/03/20 02:10 Assessment/Plan Assessment/Plan Acute hypoxic respiratory failure due to COVID19 Pt was intubated 03/01 -EICU managed pt through the weekend -DX with COVID 02/12 -Repeat DDIMER, PCT, and CXR. s/p remdesivir s/p convalescent plasma -Awake proning decadron MAT protocol Lovenox Acute very small right PTX -Repeat CXR at 1300 PNA -Repeat pierce cultures - Zosyn Debility -Consult PT/OT -Advance diet as tolerated Coag negative staph bacteremia probable contamination history of colon cancer s/p resection no acute management needs DVT ppx: Lovenox KRISS DA SILVA DO Mar 03, 2020 03:58
[2020-03-03] MEDS: LORazepam INJ 2 MG/ML (ATIVAN) VIAL IV PRN (04:19)
[2020-03-03 06:17] LABS: ABG BASE EXCESS 0.4 MMOL/L (-2.5-2.5); ABG OXYGEN SATURATION 94 % (94-100); ABG PCO2 50 MMHG (35-45); ABG PO2 152 MMHG (79-93); ABG TCO2 27.3 MMOL/L (21.0-31.0)
[2020-03-03 06:19] LABS: ALLENS TEST POSITIVE; INSPIRED O2 40; PATIENT TEMP 36.7; VENTILATOR YES
[2020-03-03 06:20] LABS: ABG PH 7.33 (7.37-7.43)
[2020-03-03] MEDS: PIPERACILLIN/TAZO 4.5 GM/NS 100 ML IV SCH ×2 (06:49)
--- NOTE | 2020-03-03 07:57 | Occ Therapy Progress Note ---
Therapy Progress Note OT orders received, chart reviewed. Pt. currently sedated and intubated. Will continue to monitor pt. and assess when medically stable and able to participate in skilled tx. DAVID SANTILLAN OTR Mar 03, 2020 07:57
--- NOTE | 2020-03-03 08:25 | Diagnostic Imaging Report ---
INDICATION: Pneumothorax COMPARISON: 03/02/2020 TECHNIQUE: Single radiograph of the chest dated 03/03/2020 FINDINGS: Endotracheal tube and enteric catheter are stable. The cardiac silhouette is unchanged. Pulmonary vasculature is obscured. Extensive left greater than right bilateral pulmonary infiltrates are again identified, not significantly changed from the prior examination. Tiny right apical pneumothorax is again identified, not significantly changed. Pneumomediastinum is again seen, similar to the prior exam. Small left apical pneumothorax is again identified, appearing similar. No significant mediastinal shift. The lungs remain hyperinflated. No large-volume pleural effusion. Soft tissue gas overlying the chest and neck is again identified, slightly improved. Osseous structures are unchanged. IMPRESSION: Persistent tiny right and small left apical pneumothoraces, not significantly changed. Persistent pneumomediastinum, similar to the prior examination. Persistent extensive bilateral pulmonary infiltrates, not significantly changed. Unchanged lines and tubes. Dictated by: Dictated on workstation # [id number]
[2020-03-03] MEDS: FAMOTIDINE 20MG/2ML IV (PEPCID) IV SCH ×2 (09:01→20:25)
--- NOTE | 2020-03-03 10:33 | NUR ---
Phone call placed to Barbara, sister. Updates given and questions answered. Barbara states she has no further questions or concerns at this time and will pass along the update to family.
--- NOTE | 2020-03-03 11:45 | Physical Therapy Progress Note ---
Therapy Progress Note Patient sedated and intubated. PROM and repositioning performed. SHANTELL BURGESS PT Mar 03, 2020 11:45
[2020-03-03] MEDS: NS IV 500 ML 500 ML IV SCH (12:45)
--- NOTE | 2020-03-03 13:51 | Pulmonary Progress Note ---
Standard Progress Note Progress Notes Date Seen by Provider: Mar 03, 2020 Time Seen by Provider: 13:[address] Pacheco secondary to CXR showing enlarging left PTX. Pt has also been requiring more oxygen. Will proceed with chest tube placement. I also discussed with Dr. Kelley. Assessment & Plan Acute hypoxic respiratory failure due to COVID19 Pt was intubated 03/01 -EICU managed pt through the weekend -DX with COVID 02/12 -Repeat DDIMER, PCT, and CXR. s/p remdesivir s/p convalescent plasma -Awake proning decadron MAT protocol Lovenox Acute enlarging left PTX -Will proceed with chest tube placement. -Discussed with Dr. Pacheco radiology and Dr. Kelley. PNA -Repeat pierce cultures - Zosyn Debility -Consult PT/OT -Advance diet as tolerated Coag negative staph bacteremia probable contamination history of colon cancer s/p resection no acute management needs DVT ppx: Lovenox Critical Care: Critically Ill Patient Time spent with patient (mins): 30 KRISS DA SILVA DO Mar 03, 2020 13:51
--- NOTE | 2020-03-03 13:57 | Diagnostic Imaging Report ---
EXAMINATION: Portable erect AP chest at 1251 hours. INDICATION: Pneumothorax. The exam performed earlier today at 2:09 a.m. noted a persistent small apical pneumothorax on the left. In the interval since the prior study the pneumothorax has increased. The distance from the bony thorax to the lung edge is now 4.3 cm. The tiny apical pneumothorax on the right seen previously is difficult to identify on this exam. The overall appearance of the chest itself has not changed significantly otherwise. The heart is stable in size. There are still diffuse alveolar/interstitial pulmonary infiltrates bilaterally as well as subcutaneous emphysema over the right thorax in both supraclavicular regions. The supportive tubes and lines seem to be in good position. IMPRESSION: 1. The appearance of the chest has worsened since the prior exam as the apical pneumothorax on the left has increased. A follow-up study would be recommended for continued evaluation. 2. The overall appearance of the chest is otherwise stable. 3. These results were called to Dr. Mohinder Huizar at the time of this dictation. CRITICAL FINDING Dictated by: Dictated on workstation # [id number]
--- NOTE | 2020-03-03 14:41 | Pulmonary Procedures ---
Pulmonary Procedures Date of Procedure Date of Service: Mar 03, 2020 Chest Tube : Chest Tube Position: Left Chest Tube Location: Mid-Clavicular Chest Size of Moroccan Tube (cm): 14 Chest Tube Procedure: betadine prep, sterile drapes applied, sterile dressing applied Galeana of Air [place]: No Number of Attempts: 1 Tube Drainage: see nurses notes Tube Sutured to Skin: No Post Procedure CXR?: Yes KRISS DA SILVA DO Mar 03, 2020 14:41
[2020-03-03 14:53] LABS: ABG BASE EXCESS -0.2 MMOL/L (-2.5-2.5); ABG OXYGEN SATURATION 98 % (94-100); ABG PCO2 57 MMHG (35-45); ABG PO2 107 MMHG (79-93); ABG TCO2 27.4 MMOL/L (21.0-31.0)
[2020-03-03 14:56] LABS: ABG PH 7.28 (7.37-7.43); ALLENS TEST YES-POS
[2020-03-03 14:57] LABS: INSPIRED O2 70%; PATIENT TEMP 37.5; VENTILATOR YES
--- NOTE | 2020-03-03 15:02 | Diagnostic Imaging Report ---
Portable erect AP chest at 2:44 In the interval since the exam performed earlier today at 1251 a small caliber chest tube has been inserted on the left. The tip of the tube overlies the medial aspect of the left upper lung. The pneumothorax seen on the prior exam has diminished. The pneumothorax now measures approximately 2.4 cm from the bony thorax, the lung edge as opposed to 4.3 cm on the previous study. The overall appearance the chest itself has not changed significantly otherwise. The minimal apical pneumothorax on the right which was difficult to visualize on the prior exam is evident on this study and seems unchanged when compared to the prior exam performed today 2:08 AM. Impression: 1. The appearance of the chest has improved following insertion of a small caliber chest tube on the left at the apical pneumothorax on the left has decreased in size. A followup exam would be recommended for continued evaluation. 2. These results were discussed with Dr. Mohinder Huizar. Dictated by: Dictated on workstation # [id number]
--- NOTE | 2020-03-03 17:11 | NUR ---
Received dietary consult regarding vent status. Would recommend initiation of Pulmocare via 60ml bolus feeds q4h with 30ml water flushes before/after each bolus. Would recommend increase TF by 30ml q8h as tolerated toward goal of 240ml bolus feeds q4h. Will continue to follow and reassess as pt needs, intake, and status change. Erin Cisneros, MS RD LD [phone] cell
[2020-03-03] MEDS: ENOXAPARIN 60 MG/0.6 ML (LOVENOX) SYR SC SCH (20:25)
--- NOTE | 2020-03-03 20:59 | NUR ---
SPOKE WITH PATIENT'S SISTER, JESSICA. PASSWORD VERIFIED. INFORMED HER OF THORAVENT CHEST TUBE PLACEMENT THIS AFTERNOON AND THAT OVERALL PATIENT IS STABLE AT THIS TIME.
[2020-03-04] VITALS (32 sets, daily range): BP systolic 87–142; BP diastolic 47–78
[2020-03-04] MEDS: inSUlin ASPART (NovoLOG) 1 UNIT/0.01 ML (CHARGE PER UNIT) SQ SCH ×5 (00:18→23:41)
[2020-03-04] MEDS: LORazepam INJ 2 MG/ML (ATIVAN) VIAL IV PRN (01:09)
[2020-03-04] MEDS: RT-ALBUTEROL INHALER HFA (VENTOLIN HFA) 18 GM IH SCH ×6 (02:59→22:36)
[2020-03-04] MEDS: IPRATROPIUM INHALER (ATROVENT) 12.9 GM INH SCH ×6 (02:59→22:36)
[2020-03-04] MEDS: NS IV 1000 ML 1,000 ML IV SCH (03:32)
[2020-03-04] MEDS: PROPOFOL DRIP (ICU) 100 ML IV SCH ×3 (03:33→17:51)
[2020-03-04 04:30] LABS: ABG BASE EXCESS 0.8 MMOL/L (-2.5-2.5); ABG OXYGEN SATURATION 86 % (94-100); ABG PCO2 51 MMHG (35-45); ABG PH 7.33 (7.37-7.43); ABG PO2 47 MMHG (79-93); ABG TCO2 27.8 MMOL/L (21.0-31.0)
[2020-03-04 04:31] LABS: ALLENS TEST YES-POS; INSPIRED O2 60%; PATIENT TEMP 36.4; VENTILATOR YES
[2020-03-04 05:11] LABS: BASOPHILS % (AUTO) 0 % (0-10); EOSINOPHILS % (AUTO) 0 % (0-10); HEMATOCRIT 31 % (35-52); HEMOGLOBIN 9.8 g/dL (11.5-16.0); LYMPHOCYTES # (AUTO) 0.3 10^3/uL (1.0-4.0); LYMPHOCYTES % (AUTO) 3 % (12-44); MEAN CORPUSCULAR HEMOGLOBIN 30 pg (25-34); MEAN CORPUSCULAR HGB CONC 31 g/dL (32-36); MEAN CORPUSCULAR VOLUME 98 fL (80-99); MEAN PLATELET VOLUME 9.8 fL (9.0-12.2); MONOCYTES # (AUTO) 0.5 10^3/uL (0.0-1.0); MONOCYTES % (AUTO) 4 % (0-12); NEUTROPHILS # (AUTO) 10.6 10^3/uL (1.8-7.8); NEUTROPHILS % (AUTO) 92 % (42-75); PLATELET COUNT 126 10^3/uL (130-400); WHITE BLOOD COUNT 11.4 10^3/uL (4.3-11.0)
--- NOTE | 2020-03-04 05:24 | Pulmonary Progress Note ---
Subjective Time Seen by a Provider: 05:19 Subjective/Events-last exam Pt is sedated on vent. Sepsis Event Evaluation Height, Weight, BMI Height: 5'10.00" Weight: 168lbs. 0.0oz. 76.068208yj; 20.76 BMI Method:Stated Exam Exam Vital Signs Date Time Temp Pulse Resp B/P (MAP) Pulse Ox O2 Delivery O2 Flow Rate FiO2 03/04/20 04:00 36.3 03/04/20 03:33 79 91/54 03/04/20 02:59 69 24 88 50 03/04/20 02:00 70 24 96/52 (67) 88 Mechanical Ventilator 70.00 03/04/20 01:00 71 9 87/75 (79) 88 Mechanical Ventilator 70.00 03/04/20 01:00 71 03/04/20 00:58 36.6 03/04/20 00:00 58 23 130/61 (84) 93 Mechanical Ventilator 70.00 03/03/20 23:01 54 24 96 60 03/03/20 23:00 58 24 129/61 (83) 94 Mechanical Ventilator 70.00 03/03/20 22:38 58 112/59 03/03/20 22:00 68 19 114/55 (74) 93 Mechanical Ventilator 70.00 03/03/20 21:00 58 21 111/53 (72) 93 Mechanical Ventilator 70.00 03/03/20 20:39 56 83/49 03/03/20 20:00 58 24 92/46 (64) 92 Mechanical Ventilator 70.00 03/03/20 20:00 Mechanical Ventilator 50 03/03/20 19:48 36.2 03/03/20 19:45 55 24 116/57 (81) 93 Mechanical Ventilator 70.00 03/03/20 19:30 58 24 114/59 (85) 93 Mechanical Ventilator 70.00 03/03/20 19:15 56 24 112/56 (87) 93 Mechanical Ventilator 70.00 03/03/20 19:00 56 03/03/20 19:00 56 23 131/68 (98) 98 Mechanical Ventilator 70.00 03/03/20 18:53 55 24 95 60 03/03/20 18:06 53 23 120/58 (78) 94 Mechanical Ventilator 70.00 03/03/20 17:00 57 23 114/58 (76) 94 Mechanical Ventilator 70.00 03/03/20 16:40 56 103/55 03/03/20 16:00 56 24 103/55 (71) 96 Mechanical Ventilator 70.00 03/03/20 15:37 36.6 03/03/20 15:00 59 24 91/48 (62) 94 Mechanical Ventilator 70.00 03/03/20 14:15 55 24 96 70 03/03/20 14:00 54 23 120/58 (78) 97 Mechanical Ventilator 70.00 03/03/20 13:56 Mechanical Ventilator 70.00 03/03/20 13:00 55 24 112/54 (73) 96 Mechanical Ventilator 80.00 03/03/20 12:31 57 03/03/20 12:25 59 23 115/55 (75) 97 Mechanical Ventilator 90.00 03/03/20 12:00 57 24 112/55 (74) 97 Mechanical Ventilator 80.00 03/03/20 11:19 36.7 03/03/20 11:00 55 24 114/62 (79) 98 Mechanical Ventilator 90.00 03/03/20 10:46 Mechanical Ventilator 90.00 03/03/20 10:43 70 101/53 03/03/20 10:00 62 24 103/52 (69) 98 Mechanical Ventilator 100.00 03/03/20 09:05 70 101/53 03/03/20 09:00 70 23 101/53 (69) 98 Mechanical Ventilator 100.00 03/03/20 08:00 36.4 70 24 100/52 (68) 98 Mechanical Ventilator 100.00 03/03/20 08:00 98 Mechanical Ventilator 100 03/03/20 07:20 Mechanical Ventilator 100.00 03/03/20 07:00 96 11 107/57 (74) 90 Mechanical Ventilator 40.00 03/03/20 06:54 65 24 97 30 03/03/20 06:45 65 03/03/20 06:00 65 24 109/55 (73) 94 Mechanical Ventilator 40.00 03/03/20 05:43 61 122/61 03/03/20 05:42 96 Mechanical Ventilator 30.00 I & O 03/04/20 07:00 Intake Total 205 ml Output Total 450 ml Balance -245 ml Height & Weight Height: 5'10.00" Weight: 168lbs. 0.0oz. 76.079596tv; 20.76 BMI Method:Stated General Appearance: No Apparent Distress, WD/WN, Chronically ill, Other (sedated) HEENT: PERRL/EOMI, Moist Mucous Membranes Neck: Normal Inspection, Supple Respiratory: Decreased Breath Sounds Cardiovascular: Regular Rate, Rhythm Capillary Refill: Less Than 3 Seconds Gastrointestinal: normal bowel sounds, non tender, soft Extremity: Normal Inspection, Non Tender, No Pedal Edema Neurologic/Psychiatric: Alert, Oriented x3, No Motor/Sensory Deficits Skin: Normal Color, Warm/Dry Results Lab Laboratory Tests 03/03/20 02:10 03/04/20 04:45 Assessment/Plan Assessment/Plan Acute hypoxic respiratory failure due to COVID19 Pt was intubated 03/01 -EICU managed pt through the weekend -DX with COVID 02/12 -Repeat DDIMER, PCT, and CXR. s/p remdesivir s/p convalescent plasma -Awake proning decadron MAT protocol Lovenox Worsening left PTX -Current small chest tube is not working well enough. -PTX appears larger. -- Will place larger 32f chest tube. PNA -Repeat pierce cultures - Zosyn Debility -Consult PT/OT -Advance diet as tolerated Coag negative staph bacteremia probable contamination history of colon cancer s/p resection no acute management needs DVT ppx: KRISS Solo DO Mar 04, 2020 05:24
[2020-03-04 05:27] LABS: CHLORIDE 111 MMOL/L (98-107); POTASSIUM 4.5 MMOL/L (3.6-5.0); SODIUM 141 MMOL/L (135-145)
[2020-03-04 05:28] LABS: CALCIUM 8.2 MG/DL (8.5-10.1)
[2020-03-04 05:29] LABS: GLUCOSE 110 MG/DL (70-105)
[2020-03-04 05:30] LABS: CARBON DIOXIDE 24 MMOL/L (21-32)
[2020-03-04 05:32] LABS: CREATININE SERUM 0.63 MG/DL (0.60-1.30); GFR ESTIMATED > 60; PHOSPHORUS 1.8 MG/DL (2.3-4.7)
[2020-03-04 05:33] LABS: BUN/CREATININE RATIO 29
[2020-03-04 05:35] LABS: MAGNESIUM 2.3 MG/DL (1.6-2.4)
[2020-03-04] MEDS ORDERED: LACTATED RINGERS 1,000 ML IV ONE (05:43)
[2020-03-04] MEDS: POTASSIUM CL 10MEQ/50ML IVPB 50 ML IV SCH (05:52)
[2020-03-04] MEDS: LACTATED RINGERS 1,000 ML IV SCH ×2 (05:52→17:52)
[2020-03-04] MEDS: KCL 20 MEQ TAB (K-DUR) PO SCH (05:53)
[2020-03-04] MEDS: MAGNESIUM 1 GM/100 ML IVPB 100 ML IV SCH (05:53)
[2020-03-04] MEDS ORDERED: PIPERACILLIN/TAZO 4.5 GM VIAL (ZOSYN) IV ONE (05:58)
[2020-03-04] MEDS ORDERED: NS (IVPB) 100 ML ONE (05:59)
--- NOTE | 2020-03-04 06:20 | NUR ---
ATTEMPTED TO CALL PATIENT'S SON WITH DR. DA SILVA TO OBTAIN CONSENT FOR LARGE BORE CHEST TUBE PLACEMENT. NO ANSWER. CALLED PATIENT'S SISTER, JESSICA. PASSWORD VERIFIED. INFORMED HER THAT WE DID ATTEMPT TO CALL PATIENT'S SON. PROCEDURE EXPLAINED INCLUDING RISKS. ANSWERED QUESTIONS. OBTAINED CONSENT FOR LARGE BORE CHEST TUBE PLACEMENT FROM SISTER WITH DR. DA SILVA SECOND TELEPHONE WITNESS. [id number]-CALLED PATIENT'S SISTER AND INFORMED HER THAT PATIENT TOLERATED PROCEDURE WELL.
[2020-03-04] MEDS: PIPERACILLIN/TAZOBACTAM (BULK) 4.5 GM in NS (IVPB) 100 ML IV SCH ×3 (06:25→22:15)
[2020-03-04] MEDS ORDERED: proPOfol 200 MG/20 ML (DIPRIVAN) VIAL IV ONE (06:42)
--- NOTE | 2020-03-04 06:50 | NUR ---
TIMELINE: 0650-ADMINISTERED 50MCG OF FENTANYL. SEE EMAR. 0651-ADMINISTERED 50MCG OF PROPOFOL. SEE EMAR 0653-PROCEDURE STARTED. LARGE BORE CHEST TUBE TO LEFT CHEST PLACED BY DR. DA SILVA. PATIENT TOLERATED WELL. 729-PROCEDURE ENDED. THORA-VENT ON LEFT CHEST REMOVED. VASOLINE GUAZE AND 4X4 GUAZE DRESSING APPLIED.
--- NOTE | 2020-03-04 07:19 | Diagnostic Imaging Report ---
EXAMINATION: Chest radiograph, portable AP view. DATE: 03/04/2020 6:07 AM INDICATION: 74-year-old female, worsening pneumothorax. COMPARISON: March 04, 2020 at 0246 hours. FINDINGS: There is a large left sided pneumothorax with near-complete collapse of the left lung. There is a left-sided chest tube. The endotracheal tube is approximately 4.3 cm above the pam. The nasogastric tube side-port is near the level of the gastroesophageal junction. There is a right-sided port catheter with tip overlying the upper SVC. Heart size and mediastinal contours are unchanged. There is subcutaneous gas in the right and left neck and right chest wall. There is probable pneumomediastinum. There is multifocal bilateral lung consolidation. There is more confluent and increased opacification in the right hilar region. IMPRESSION: 1. Redemonstrated very large left-sided pneumothorax with near complete collapse of the left lung with chest tube in place. This is fairly similar in appearance to the comparison exam. 2. Redemonstrated abnormal subcutaneous gas in the neck and right chest with probable pneumomediastinum. 3. Extensive multifocal bilateral lung consolidation with increasing consolidation in the right perihilar region. Dictated by: Dictated on workstation # [id number]
--- NOTE | 2020-03-04 07:55 | Pulmonary Procedures ---
Pulmonary Procedures Date of Procedure Date of Service: Mar 04, 2020 Chest Tube : Chest Tube Position: Left Chest Tube Location: Mid-Axillary Chest Size of Comoran Tube (cm): 32 Chest Tube Procedure: betadine prep, sterile drapes applied, sterile dressing applied Anesthesia: 1% Lidocaine Galeana of Air [place]: Yes Tube Drainage: see nurses notes Tube Sutured to Skin: Yes Post Procedure CXR?: Yes (pending ) KRISS DA SILVA DO Mar 04, 2020 07:55
[2020-03-04] MEDS: ENOXAPARIN 60 MG/0.6 ML (LOVENOX) SYR SC SCH ×2 (08:18→19:26)
[2020-03-04] MEDS: FAMOTIDINE 20MG/2ML IV (PEPCID) IV SCH ×2 (08:19→19:26)
--- NOTE | 2020-03-04 08:53 | Diagnostic Imaging Report ---
Portable erect AP chest at 8:28. Indication: Respiratory distress In the interval since the prior exam performed earlier today at 5:46 AM the small caliber left-sided chest tube has been removed and a large bore chest tube has been inserted. The pneumothorax on the left seen previously has diminished considerably. There is still approximately 4 cm of separation between the bony thorax of the lung apex and the lung edge. There is no sign of torsion. The heart is stable in size. The diffuse alveolar/interstitial pulmonary infiltrates involving both lung seen previously are again evident and unchanged. The small apical pneumothorax on the right is not well visualized. The supportive tubes and lines seem to be in good position. Impression: 1. The appearance of the chest has improved considerably following the insertion of the large bore chest tube on the left. There is still a residual pneumothorax involving the left apex present however. 2. There is no new abnormality noted otherwise. 3. These results were conveyed to Dr. Mohinder Huizar. Dictated by: Dictated on workstation # [id number]
--- NOTE | 2020-03-04 08:54 | Diagnostic Imaging Report ---
Portable erect AP chest at 246 Indication: Respiratory distress In the interval since the prior exam performed on 03/03/2020 the appearance of the chest has worsened as the small apical pneumothorax on the left has increased in size considerably. The pneumothorax is now estimated to be in the 70-80% range. The small caliber chest tube seen previously is again evident and seems similar in position. The overall appearance of the chest has not changed significantly otherwise. There are still diffuse alveolar/interstitial pulmonary infiltrates bilaterally. The heart is stable in size. The minute apical pneumothorax on the right seen previously is again evident and unchanged. There is still subcutaneous emphysema bilaterally as well. The supportive tubes and lines are similar in position. Impression: 1. The appearance of the chest has worsened since the prior exam as the pneumothorax on the left has increased in size considerably. 2. These results were called to Dr. Mohinder Huizar at the time of this dictation. Critical finding Dictated by: Dictated on workstation # [id number]
[2020-03-04] MEDS: NOREPINEPHRINE 4 MG/250 ML 250 ML IV SCH (09:44)
--- NOTE | 2020-03-04 10:26 | Physical Therapy Progress Note ---
Therapy Progress Note PROM bilateral extremities all planes in supine with repositioning. Restraints in place bilateral UE. SHANTELL BURGESS PT Mar 04, 2020 10:26
[2020-03-04] MEDS: fentaNYL DRIP PRE-MIX 250 ML IV SCH ×2 (12:08→23:42)
--- NOTE | 2020-03-04 13:51 | NUR ---
RECEIVED PHONE CALL FROM SISTERJESSICA. PASSWORD OBTAINED. UPDATE GIVEN AND QUESTIONS ANSWERED. SISTER STATES SHE HAS NO FURTHER QUESTIONS OR CONCERNS AT THIS TIME AND WILL PASS UPDATE ON TO OTHER FAMILY.
--- NOTE | 2020-03-04 20:30 | Diagnostic Imaging Report ---
INDICATION: Chest tube placement. Pneumothorax. COMPARISON: Earlier the same day FINDINGS: Single frontal radiographic view of the chest was obtained and again demonstrates indwelling large bore left-sided chest tube. There is persistent stable appearing moderate left apical pneumothorax. There is soft tissue emphysema as well. No large pneumothorax is seen on the right. Lungs continue to show diffuse patchy and confluent interstitial infiltrates. Small bibasilar effusions may be present as well. Cardiac silhouette is within normal limits. Endotracheal tube is seen with tip at the clavicular heads. Gastric tube is present with side-port likely at the hiatus. Right internal jugular Port-A-Cath is also again identified in stable position. IMPRESSION: 1. Redemonstration of the large bore left-sided chest tube with stable moderate left-sided pneumothorax. 2. Redemonstration diffuse patchy and confluent infiltrates, stable compared to earlier same day. 3. Possible small bibasilar effusions. Dictated by: Dictated on workstation # [id number]
[2020-03-05] VITALS (28 sets, daily range): BP systolic 83–119; BP diastolic 46–78
--- NOTE | 2020-03-05 01:00 | NUR ---
OG TUBE FEEDING RESIDUAL AT THIS TIME IS 0.
[2020-03-05] MEDS: PROPOFOL DRIP (ICU) 100 ML IV SCH ×2 (01:35→13:14)
[2020-03-05] MEDS: NOREPINEPHRINE 4 MG/250 ML 250 ML IV SCH ×4 (01:36→21:27)
[2020-03-05 02:11] LABS: BASOPHILS % (AUTO) 0 % (0-10); EOSINOPHILS % (AUTO) 0 % (0-10); HEMATOCRIT 27 % (35-52); HEMOGLOBIN 8.3 g/dL (11.5-16.0); LYMPHOCYTES # (AUTO) 0.2 10^3/uL (1.0-4.0); LYMPHOCYTES % (AUTO) 2 % (12-44); MEAN CORPUSCULAR HEMOGLOBIN 30 pg (25-34); MEAN CORPUSCULAR HGB CONC 31 g/dL (32-36); MEAN CORPUSCULAR VOLUME 96 fL (80-99); MEAN PLATELET VOLUME 10.2 fL (9.0-12.2); MONOCYTES # (AUTO) 0.3 10^3/uL (0.0-1.0); MONOCYTES % (AUTO) 3 % (0-12); NEUTROPHILS # (AUTO) 7.1 10^3/uL (1.8-7.8); NEUTROPHILS % (AUTO) 93 % (42-75); PLATELET COUNT 101 10^3/uL (130-400); WHITE BLOOD COUNT 7.6 10^3/uL (4.3-11.0)
[2020-03-05 02:12] LABS: ABG BASE EXCESS 2.6 MMOL/L (-2.5-2.5); ABG OXYGEN SATURATION 97 % (94-100); ABG PCO2 54 MMHG (35-45); ABG PO2 82 MMHG (79-93); ABG TCO2 29.9 MMOL/L (21.0-31.0)
[2020-03-05 02:18] LABS: ABG PH 7.33 (7.37-7.43); ALLENS TEST YES-POS; INSPIRED O2 70%; PATIENT TEMP 36.2; VENTILATOR YES
[2020-03-05 02:22] LABS: CHLORIDE 110 MMOL/L (98-107); POTASSIUM 4.5 MMOL/L (3.6-5.0); SODIUM 142 MMOL/L (135-145)
[2020-03-05 02:24] LABS: CALCIUM 8.1 MG/DL (8.5-10.1)
[2020-03-05 02:25] LABS: GLUCOSE 119 MG/DL (70-105); TRIGLYCERIDES 123 MG/DL (<150)
[2020-03-05 02:26] LABS: CARBON DIOXIDE 27 MMOL/L (21-32)
[2020-03-05 02:28] LABS: CREATININE SERUM 0.55 MG/DL (0.60-1.30); GFR ESTIMATED > 60; PHOSPHORUS 2.1 MG/DL (2.3-4.7)
[2020-03-05 02:29] LABS: BUN/CREATININE RATIO 35
[2020-03-05] MEDS: RT-ALBUTEROL INHALER HFA (VENTOLIN HFA) 18 GM IH SCH ×6 (02:35→22:06)
[2020-03-05] MEDS: IPRATROPIUM INHALER (ATROVENT) 12.9 GM INH SCH ×6 (02:45→22:06)
[2020-03-05] MEDS: POTASSIUM CL 10MEQ/50ML IVPB 50 ML IV SCH (03:40)
[2020-03-05] MEDS: MAGNESIUM 1 GM/100 ML IVPB 100 ML IV SCH (03:40)
[2020-03-05] MEDS: KCL 20 MEQ TAB (K-DUR) PO SCH (03:41)
[2020-03-05] MEDS: inSUlin ASPART (NovoLOG) 1 UNIT/0.01 ML (CHARGE PER UNIT) SQ SCH ×3 (03:41→17:07)
[2020-03-05 03:50] LABS: BAND NEUTROPHILS 2 %; LYMPHOCYTES % (MANUAL) 5 %; MONOCYTES % (MANUAL) 3 %; NEUTROPHILS % (MANUAL) 90 %; RBC MORPH NORMAL
[2020-03-05] MEDS ORDERED: FLUCONAZOLE 200 MG/100 ML 100 ML IV ONE (05:45)
--- NOTE | 2020-03-05 05:47 | Pulmonary Progress Note ---
Subjective Time Seen by a Provider: 05:43 Subjective/Events-last exam Pt is sedated on vent. Sepsis Event Evaluation Height, Weight, BMI Height: 5'10.00" Weight: 168lbs. 0.0oz. 76.711600vt; 20.76 BMI Method:Stated Exam Exam Vital Signs Date Time Temp Pulse Resp B/P (MAP) Pulse Ox O2 Delivery O2 Flow Rate FiO2 03/05/20 04:00 63 16 98/48 (65) 100 Mechanical Ventilator 70.00 03/05/20 03:25 37.3 03/05/20 03:00 62 12 99/49 (66) 99 Mechanical Ventilator 70.00 03/05/20 02:54 64 24 98 80 03/05/20 02:00 64 26 90/51 (65) 94 Mechanical Ventilator 70.00 03/05/20 01:40 Mechanical Ventilator 70.00 03/05/20 01:36 55 122/59 03/05/20 01:35 53 122/59 03/05/20 01:00 57 03/05/20 01:00 57 18 113/56 (77) 98 Mechanical Ventilator 80.00 03/05/20 00:00 36.2 03/05/20 00:00 62 15 104/53 (74) 96 Mechanical Ventilator 80.00 03/04/20 23:00 56 16 107/53 (71) 94 Mechanical Ventilator 80.00 03/04/20 22:59 53 26 138/68 (91) 94 Mechanical Ventilator 80.00 03/04/20 22:36 53 24 92 80 03/04/20 22:00 52 24 140/73 (95) 95 Mechanical Ventilator 80.00 03/04/20 21:00 54 24 136/73 (94) 95 Mechanical Ventilator 80.00 03/04/20 21:00 96 Mechanical Ventilator 70 03/04/20 20:00 36.2 Mechanical Ventilator 80.00 03/04/20 20:00 53 26 138/68 (107) 94 Mechanical Ventilator 80.00 03/04/20 19:45 55 23 136/72 (108) 93 Mechanical Ventilator 80.00 03/04/20 19:30 59 24 121/71 (98) 97 Mechanical Ventilator 80.00 03/04/20 19:26 96 Mechanical Ventilator 80 03/04/20 19:19 37.3 03/04/20 19:15 60 24 115/78 (93) 96 Mechanical Ventilator 80.00 03/04/20 19:00 58 24 118/72 (89) 95 Mechanical Ventilator 80.00 03/04/20 19:00 58 03/04/20 18:37 59 24 97 80 03/04/20 18:00 61 23 112/75 (87) 96 Mechanical Ventilator 80.00 03/04/20 17:51 59 105/64 03/04/20 17:07 Mechanical Ventilator 80.00 03/04/20 17:00 60 24 110/71 (84) 98 Mechanical Ventilator 90.00 03/04/20 16:13 37.1 03/04/20 16:00 59 23 105/64 (78) 97 Mechanical Ventilator 90.00 03/04/20 15:04 Mechanical Ventilator 90.00 03/04/20 15:00 61 24 104/61 (75) 97 Mechanical Ventilator 100.00 03/04/20 14:00 59 23 110/62 (78) 93 Mechanical Ventilator 100.00 03/04/20 13:34 62 24 94 100 03/04/20 13:00 59 23 107/66 (80) 93 Mechanical Ventilator 100.00 03/04/20 12:08 60 114/47 03/04/20 12:00 37.0 Mechanical Ventilator 100.00 03/04/20 12:00 56 23 118/67 (84) 94 Mechanical Ventilator 100.00 03/04/20 11:46 60 03/04/20 11:00 58 21 133/63 (86) 93 Mechanical Ventilator 100.00 03/04/20 10:00 62 25 127/61 (83) 92 Mechanical Ventilator 100.00 03/04/20 09:44 65 114/47 03/04/20 09:00 65 24 114/47 (69) 95 Mechanical Ventilator 100.00 03/04/20 08:11 36.4 03/04/20 08:00 Mechanical Ventilator 100 03/04/20 08:00 72 24 109/50 (69) 86 Mechanical Ventilator 100.00 03/04/20 07:44 77 24 93 50 03/04/20 07:37 71 03/04/20 07:00 73 19 122/60 (80) 92 Mechanical Ventilator 100.00 03/04/20 07:00 Mechanical Ventilator 100.00 03/04/20 06:00 72 13 123/64 (83) 92 Mechanical Ventilator 70.00 I & O 03/05/20 07:00 Intake Total 840 ml Output Total 1360 ml Balance -520 ml Height & Weight Height: 5'10.00" Weight: 168lbs. 0.0oz. 76.061348fc; 20.76 BMI Method:Stated General Appearance: No Apparent Distress, WD/WN, Chronically ill, Other ( sedated) HEENT: PERRL/EOMI, Moist Mucous Membranes Neck: Normal Inspection, Supple Respiratory: Decreased Breath Sounds Cardiovascular: Regular Rate, Rhythm Capillary Refill: Less Than 3 Seconds Gastrointestinal: normal bowel sounds, non tender, soft Extremity: Normal Inspection, Non Tender, No Pedal Edema Neurologic/Psychiatric: Alert, Oriented x3, No Motor/Sensory Deficits Skin: Normal Color, Warm/Dry Results Lab Laboratory Tests 03/04/20 04:45 03/05/20 02:00 Assessment/Plan Assessment/Plan Acute hypoxic respiratory failure due to COVID19 Pt was intubated 03/01 -EICU managed pt through the night -DX with COVID 02/12 s/p remdesivir s/p convalescent plasma decadron MAT protocol Lovenox Worsening left PTX -Current small chest tube is not working well enough. -PTX appears larger. -- Will place larger 32f chest tube. PNA -Repeat pierce cultures - Zosyn - -Start Diflucan secondary to vaginal yeast infection Debility -Consult PT/OT -Advance diet as tolerated Coag negative staph bacteremia probable contamination history of colon cancer s/p resection no acute management needs DVT ppx: Lovenox KRISS DA SILVA DO Mar 05, 2020 05:47
--- NOTE | 2020-03-05 06:00 | NUR ---
TUBE FEEDING RESIDUAL WAS 0 AT THIS TIME.
[2020-03-05] MEDS: PIPERACILLIN/TAZOBACTAM (BULK) 4.5 GM in NS (IVPB) 100 ML IV SCH ×3 (06:29→22:44)
--- NOTE | 2020-03-05 07:22 | NUR ---
CALLED JESSICA, PATIENT'S SISTER. PASSWORD VERIFIED. UPDATED HER ON PATIENT'S CONDITION.
--- NOTE | 2020-03-05 08:17 | Diagnostic Imaging Report ---
EXAMINATION: Portable erect AP chest at 2:00 AM INDICATION: Respiratory distress The apical pneumothorax on the left seen on the prior exam of 03/04/2020 is somewhat smaller on this study. On the prior exam, the distance from the bony thorax to the lung edge was approximately 5.3 cm. On this exam, the distance is only 3.6 cm. The left-sided chest tube seen previously remains in good position. The overall appearance of the chest has not changed significantly otherwise. The heart is stable and there are persistent diffuse alveolar/interstitial pulmonary infiltrates bilaterally. There is still evidence of subcutaneous emphysema bilaterally as well. The supportive tubes and lines seem similar in position. IMPRESSION: 1. The appearance of the chest has improved somewhat as the apical pneumothorax on the left is smaller. The overall appearance of the chest has not changed significantly otherwise. A follow-up exam would be recommended for continued evaluation. Dictated by: Dictated on workstation # [id number]
[2020-03-05] MEDS: FAMOTIDINE 20MG/2ML IV (PEPCID) IV SCH ×2 (08:31→20:22)
[2020-03-05] MEDS: ENOXAPARIN 60 MG/0.6 ML (LOVENOX) SYR SC SCH ×2 (08:31→20:22)
[2020-03-05] MEDS: LACTATED RINGERS 1,000 ML IV SCH ×2 (11:24→23:15)
[2020-03-05] MEDS: fentaNYL DRIP PRE-MIX 250 ML IV SCH ×2 (11:25→22:41)
--- NOTE | 2020-03-05 11:34 | Physical Therapy Progress Note ---
Therapy Progress Note PT performed PROM to bilateral extremities, restraints on at the end of tx. Proper PPE donned before entering room. Patient O2 sats did not decrease during ROM. JORDYN MANZANO PT Mar 05, 2020 11:34
--- NOTE | 2020-03-05 14:36 | NUR ---
Note pt is currently receiving TF of Pulmocare via 120ml bolus feeds q4h with 30ml free water flushes before/after each bolus. Recommend continue to increase TF by 30ml q8h as tolerated toward goal rate of 240ml bolus feeds q4h. Will continue to follow and reassess as pt needs, intake, and status change. Lisa RIZVI, MS RD LD [phone] cell
--- NOTE | 2020-03-05 15:06 | NUR ---
Phone call placed to patients melida knapp. updates given and questions answered. Sister states she has no further questions or concerns at this time.
[2020-03-06] VITALS (30 sets, daily range): BP systolic 93–141; BP diastolic 50–92
[2020-03-06] MEDS: inSUlin ASPART (NovoLOG) 1 UNIT/0.01 ML (CHARGE PER UNIT) SQ SCH ×4 (01:02→18:21)
[2020-03-06] MEDS: LACTATED RINGERS 1,000 ML IV SCH (01:32)
[2020-03-06] MEDS: RT-ALBUTEROL INHALER HFA (VENTOLIN HFA) 18 GM IH SCH ×6 (02:23→22:27)
[2020-03-06] MEDS: IPRATROPIUM INHALER (ATROVENT) 12.9 GM INH SCH ×6 (02:23→22:26)
[2020-03-06 02:40] LABS: BASOPHILS % (AUTO) 0 % (0-10); EOSINOPHILS % (AUTO) 0 % (0-10); HEMATOCRIT 28 % (35-52); HEMOGLOBIN 8.8 g/dL (11.5-16.0); LYMPHOCYTES # (AUTO) 0.4 10^3/uL (1.0-4.0); LYMPHOCYTES % (AUTO) 3 % (12-44); MEAN CORPUSCULAR HEMOGLOBIN 30 pg (25-34); MEAN CORPUSCULAR HGB CONC 32 g/dL (32-36); MEAN CORPUSCULAR VOLUME 95 fL (80-99); MEAN PLATELET VOLUME 10.4 fL (9.0-12.2); MONOCYTES # (AUTO) 0.5 10^3/uL (0.0-1.0); MONOCYTES % (AUTO) 4 % (0-12); NEUTROPHILS # (AUTO) 10.3 10^3/uL (1.8-7.8); NEUTROPHILS % (AUTO) 91 % (42-75); PLATELET COUNT 169 10^3/uL (130-400); WHITE BLOOD COUNT 11.3 10^3/uL (4.3-11.0)
[2020-03-06 02:46] LABS: ABG BASE EXCESS 3.1 MMOL/L (-2.5-2.5); ABG OXYGEN SATURATION 92 % (94-100); ABG PCO2 47 MMHG (35-45); ABG PH 7.39 (7.37-7.43); ABG PO2 62 MMHG (79-93); ABG TCO2 29.1 MMOL/L (21.0-31.0); ALLENS TEST ART LINE; INSPIRED O2 100%; PATIENT TEMP 37.1; VENTILATOR YES
[2020-03-06 02:55] LABS: BUN/CREATININE RATIO 38; CALCIUM 8.3 MG/DL (8.5-10.1); CARBON DIOXIDE 27 MMOL/L (21-32); CHLORIDE 109 MMOL/L (98-107); CREATININE SERUM 0.65 MG/DL (0.60-1.30); GFR ESTIMATED > 60; GLUCOSE 126 MG/DL (70-105); MAGNESIUM 2.2 MG/DL (1.6-2.4); PHOSPHORUS 2.2 MG/DL (2.3-4.7); POTASSIUM 4.9 MMOL/L (3.6-5.0); SODIUM 143 MMOL/L (135-145)
--- NOTE | 2020-03-06 03:39 | NUR ---
THIS RN NOTIFIED DR. DA SILVA @ APPROX 0300 OF PATIENTS CHEST XRAY SHOWING AN INCREASE IN THE PNEUMOTHORAX. DR. DA SILVA COMING IN TO ASSESS PATIENT AND PLACE NEW CHEST TUBE.
[2020-03-06] MEDS: PROPOFOL DRIP (ICU) 100 ML IV SCH ×2 (04:43→18:22)
--- NOTE | 2020-03-06 05:58 | Pulmonary Procedures ---
Pulmonary Procedures Date of Procedure Date of Service: Mar 06, 2020 Chest Tube : Chest Tube Position: Left Chest Tube Location: Mid-Clavicular Chest Size of Indonesian Tube (cm): 14 Chest Tube Procedure: betadine prep, sterile drapes applied, sterile dressing applied Time of Successful Intubation: 04:00 Tube Drainage: see nurses notes Post Procedure CXR?: Yes KRISS DA SILVA DO Mar 06, 2020 05:58
--- NOTE | 2020-03-06 06:01 | Diagnostic Imaging Report ---
CHEST 1 VIEW, AP/PA ONLY Indication: Chest tube placement, pneumothorax Comparison: 03/06/2020 at 2:30 AM Findings: A 2nd small bore chest tube has been placed in the left upper hemithorax. The large bore chest tube on the left has been retracted and remains in the mid left hemithorax. Increased left chest wall gas. The left-sided pneumothorax has slightly decreased but remains large. Right mid and lower lung zone consolidations are unchanged. Stable ET and enteric tubes. Pneumomediastinum is present. Impression: 1. A 2nd chest tube has been placed resulting in partial expansion of the left lung. However, there remains a large left pneumothorax. 2. More conspicuous pneumomediastinum likely due to barotrauma. 3. Stable right lung consolidations. Dictated by: Dictated on workstation # [id number]
--- NOTE | 2020-03-06 06:03 | Pulmonary Progress Note ---
Subjective Time Seen by a Provider: 05:58 Subjective/Events-last exam Pt is sedated on vent. Left PTX is worse this morning. Sepsis Event Evaluation Height, Weight, BMI Height: 5'10.00" Weight: 168lbs. 0.0oz. 76.424285py; 20.76 BMI Method:Stated Exam Exam Vital Signs Date Time Temp Pulse Resp B/P (MAP) Pulse Ox O2 Delivery O2 Flow Rate FiO2 03/06/20 05:00 73 24 130/70 (90) 89 Mechanical Ventilator 100.00 03/06/20 04:43 75 143/78 03/06/20 04:00 102 16 138/87 (104) 90 Mechanical Ventilator 100.00 03/06/20 03:00 92 19 103/64 (77) 89 Mechanical Ventilator 100.00 03/06/20 02:23 99 25 86 100 03/06/20 02:00 85 24 114/73 (87) 90 Mechanical Ventilator 100.00 03/06/20 01:00 77 16 105/73 (84) 90 Mechanical Ventilator 100.00 03/06/20 01:00 78 03/06/20 00:00 80 14 108/73 (85) 90 Mechanical Ventilator 100.00 03/05/20 23:00 75 18 105/65 (78) 90 Mechanical Ventilator 100.00 03/05/20 22:06 76 25 87 65 03/05/20 22:00 75 27 119/78 (92) 89 Mechanical Ventilator 100.00 03/05/20 21:27 90 76/49 03/05/20 21:00 87 24 84/52 (63) 90 Mechanical Ventilator 100.00 03/05/20 20:45 Mechanical Ventilator 100.00 03/05/20 20:00 36.8 03/05/20 20:00 95 Mechanical Ventilator 100 03/05/20 20:00 86 24 87/56 (66) 91 Mechanical Ventilator 100.00 03/05/20 19:01 86 25 92 65 03/05/20 19:00 87 24 83/54 (64) 91 Mechanical Ventilator 100.00 03/05/20 19:00 88 03/05/20 18:27 Mechanical Ventilator 65.00 03/05/20 18:00 80 24 86/55 (65) 88 Mechanical Ventilator 60.00 03/05/20 17:00 67 11 97 Mechanical Ventilator 60.00 03/05/20 16:58 Mechanical Ventilator 60.00 03/05/20 16:34 36.9 03/05/20 16:00 71 20 99/59 (72) 95 Mechanical Ventilator 70.00 03/05/20 15:25 67 25 95 70 03/05/20 15:00 70 19 92/50 (64) 95 Mechanical Ventilator 70.00 03/05/20 14:00 73 24 92/53 (66) 93 Mechanical Ventilator 70.00 03/05/20 13:14 64 102/53 03/05/20 13:09 Mechanical Ventilator 70.00 03/05/20 13:00 62 9 102/53 (69) 95 Mechanical Ventilator 80.00 03/05/20 12:50 78 03/05/20 12:18 36.3 03/05/20 12:00 67 22 97/49 (65) 93 Mechanical Ventilator 80.00 03/05/20 11:00 68 9 100/50 (67) 92 Mechanical Ventilator 80.00 03/05/20 10:40 68 26 91 80 03/05/20 10:30 Mechanical Ventilator 80.00 03/05/20 09:30 79 Mechanical Ventilator 100.00 03/05/20 09:00 75 24 94/46 (62) 82 Mechanical Ventilator 60.00 03/05/20 08:13 36.9 03/05/20 08:00 95 Mechanical Ventilator 60 03/05/20 08:00 73 96/53 (67) 87 Mechanical Ventilator 60.00 03/05/20 07:01 78 24 94 60 03/05/20 07:00 73 10 99/52 (68) 94 Mechanical Ventilator 60.00 03/05/20 06:35 75 03/05/20 06:33 Mechanical Ventilator 60.00 03/05/20 06:00 75 13 99/48 (65) 99 Mechanical Ventilator 70.00 I & O 03/06/20 07:00 Intake Total 2280 ml Output Total 770 ml Balance 1510 ml Height & Weight Height: 5'10.00" Weight: 168lbs. 0.0oz. 76.944211xm; 20.76 BMI Method:Stated General Appearance: No Apparent Distress, WD/WN, Chronically ill, Other (sedated) HEENT: PERRL/EOMI, Moist Mucous Membranes Neck: Normal Inspection, Supple Respiratory: Decreased Breath Sounds Cardiovascular: Regular Rate, Rhythm Capillary Refill: Less Than 3 Seconds Gastrointestinal: normal bowel sounds, non tender, soft Extremity: Normal Inspection, Non Tender, No Pedal Edema Neurologic/Psychiatric: No Motor/Sensory Deficits, Other (sedated on vent. ) Skin: Normal Color, Warm/Dry Results Lab Laboratory Tests 03/05/20 02:00 03/06/20 02:15 Assessment/Plan Assessment/Plan Acute hypoxic respiratory failure due to COVID19 Pt was intubated 03/01 -EICU managed pt through the night -DX with COVID 02/12 s/p remdesivir s/p convalescent plasma decadron MAT protocol Lovenox Worsening left PTX -I readjusted Left chest tube, removing and reapplying dressing. I also resutured chest tube in place. I also placed a left Thoravent. -Post CXR shows improvement in left PTX -Will Repeat CXR at 800am PNA -Repeat pierce cultures - Zosyn - -Start Diflucan secondary to vaginal yeast infection Debility -Consult PT/OT -Advance diet as tolerated Coag negative staph bacteremia probable contamination history of colon cancer s/p resection no acute management needs DVT ppx: Lovenox Critical Care: Critically Ill Patient Time spent with patient (mins): 60 KRISS DA SILVA DO Mar 06, 2020 06:03
[2020-03-06] MEDS: PIPERACILLIN/TAZOBACTAM (BULK) 4.5 GM in NS (IVPB) 100 ML IV SCH ×3 (06:42→21:00)
[2020-03-06] MEDS: NOREPINEPHRINE 4 MG/250 ML 250 ML IV SCH ×2 (06:42→16:54)
[2020-03-06] MEDS: MAGNESIUM 1 GM/100 ML IVPB 100 ML IV SCH (06:43)
[2020-03-06] MEDS: POTASSIUM CL 10MEQ/50ML IVPB 50 ML IV SCH (06:43)
[2020-03-06] MEDS: KCL 20 MEQ TAB (K-DUR) PO SCH (06:43)
--- NOTE | 2020-03-06 07:42 | Diagnostic Imaging Report ---
CHEST 1 VIEW, AP/PA ONLY Indication: Pneumothorax Comparison: Prior day at 2:00 AM Findings: Left chest tube remains in stable position. However, there is now a very large pneumothorax on the left with complete collapse of the left lung which is retracted centrally. No mediastinal shift. Consolidations within the left perihilar region and right lung base are unchanged. Stable ET and enteric tubes. Stable right IJ Port-A-Cath. Supraclavicular soft tissue gas is unchanged. Impression: 1. Large left pneumothorax has developed. An additional chest tube was placed on subsequent imaging. Dictated by: Dictated on workstation # [id number]
[2020-03-06] MEDS: FLUCONAZOLE 200 MG/100 ML 50 ML, EMPTY IV BAG (PVC) 1 EA IV SCH ×2 (08:04)
[2020-03-06] MEDS: ENOXAPARIN 60 MG/0.6 ML (LOVENOX) SYR SC SCH ×3 (08:04→16:54)
[2020-03-06] MEDS: FAMOTIDINE 20MG/2ML IV (PEPCID) IV SCH ×2 (08:05→20:56)
[2020-03-06] MEDS: fentaNYL DRIP PRE-MIX 250 ML IV SCH ×2 (08:07→20:59)
--- NOTE | 2020-03-06 08:25 | NUR ---
Notified Dr. Huizar that pt has blood around thoravent site. Received order to hold pressure for 5 minutes on thoravent and hold am dose of Lovenox.
--- NOTE | 2020-03-06 08:30 | Diagnostic Imaging Report ---
INDICATION: Respiratory distress and pneumothorax Single AP view of the chest is obtained with comparison made to the study of earlier in the day. There has been partial reexpansion of the left lung with persistent 10-15% apical pneumothorax. Otherwise, extensive mixed alveolar and groundglass densities are seen throughout the lungs. Left thoracostomy device remains in place. Endotracheal tube is in place with tip at the level of thoracic inlet. Nasogastric tube passes below the diaphragm and right anterior chest wall port is in stable position. IMPRESSION: Extensive bilateral pulmonary infiltrates similar to previous study with improving left pneumothorax. Dictated by: Dictated on workstation # [id number]
--- NOTE | 2020-03-06 08:40 | NUR ---
Pressure held to thoravent for 5 minutes.
[2020-03-06] MEDS ORDERED: SODIUM PHOSPHATE INJ 30 MM in NS (IVPB) 250 ML INJ ONE (09:00)
--- NOTE | 2020-03-06 09:33 | Physical Therapy Progress Note ---
Therapy Progress Note PT performed PROM to bilateral extremities, restraints on at the end of tx SHANTELL BURGESS PT Mar 06, 2020 09:33
--- NOTE | 2020-03-06 14:03 | NUR ---
Note pt currently receiving TF of Pulmocare via 120ml bolus feeds q4h, with 30ml free water flushes before/after each bolus. Recommend continue to increase TF by 30ml q8h toward goal rate of 240ml bolus feeds q4h. Will continue to follow and reassess as pt needs, intake, and status change. Erin Cisneros, MS RD LD [phone] cell
--- NOTE | 2020-03-06 15:08 | NUR ---
Spoke with sister Barbara at this time. Updated of pt condition at this time.
--- NOTE | 2020-03-06 16:52 | NUR ---
Spoke with Dr. Huizar about blood around patient queta. Received orders to hold evening dose of Lovenox and hold pressure for 10 minutes.
--- NOTE | 2020-03-06 17:20 | NUR ---
Pressure held to thoravent for 10 minutes.
[2020-03-07] VITALS (66 sets, daily range): BP systolic 87–140; BP diastolic 49–71
[2020-03-07 02:36] LABS: ABG BASE EXCESS 4.7 MMOL/L (-2.5-2.5); ABG OXYGEN SATURATION 97 % (94-100); ABG PCO2 51 MMHG (35-45); ABG PH 7.38 (7.37-7.43); ABG PO2 88 MMHG (79-93); ABG TCO2 31.6 MMOL/L (21.0-31.0); BASOPHILS % (AUTO) 0 % (0-10); EOSINOPHILS % (AUTO) 0 % (0-10); HEMATOCRIT 28 % (35-52); HEMOGLOBIN 8.8 g/dL (11.5-16.0); LYMPHOCYTES # (AUTO) 0.2 10^3/uL (1.0-4.0); LYMPHOCYTES % (AUTO) 3 % (12-44); MEAN CORPUSCULAR HEMOGLOBIN 30 pg (25-34); MEAN CORPUSCULAR HGB CONC 32 g/dL (32-36); MEAN CORPUSCULAR VOLUME 95 fL (80-99); MEAN PLATELET VOLUME 10.7 fL (9.0-12.2); MONOCYTES # (AUTO) 0.3 10^3/uL (0.0-1.0); MONOCYTES % (AUTO) 4 % (0-12); NEUTROPHILS # (AUTO) 5.5 10^3/uL (1.8-7.8); NEUTROPHILS % (AUTO) 90 % (42-75); PLATELET COUNT 107 10^3/uL (130-400); WHITE BLOOD COUNT 6.1 10^3/uL (4.3-11.0)
[2020-03-07 02:45] LABS: ALLENS TEST POS; INSPIRED O2 70%; PATIENT TEMP 96.1; VENTILATOR YES
[2020-03-07 02:52] LABS: CHLORIDE 107 MMOL/L (98-107); POTASSIUM 4.6 MMOL/L (3.6-5.0); SODIUM 142 MMOL/L (135-145)
[2020-03-07 02:53] LABS: CALCIUM 8.4 MG/DL (8.5-10.1); GLUCOSE 131 MG/DL (70-105)
[2020-03-07 02:54] LABS: TRIGLYCERIDES 143 MG/DL (<150)
[2020-03-07 02:55] LABS: CARBON DIOXIDE 28 MMOL/L (21-32)
[2020-03-07 02:57] LABS: CREATININE SERUM 0.53 MG/DL (0.60-1.30); GFR ESTIMATED > 60; PHOSPHORUS 2.6 MG/DL (2.3-4.7)
[2020-03-07 02:58] LABS: BUN/CREATININE RATIO 45
[2020-03-07] MEDS: inSUlin ASPART (NovoLOG) 1 UNIT/0.01 ML (CHARGE PER UNIT) SQ SCH ×4 (03:47→18:31)
[2020-03-07] MEDS: NOREPINEPHRINE 4 MG/250 ML 250 ML IV SCH ×3 (03:48→22:58)
[2020-03-07] MEDS: LACTATED RINGERS 1,000 ML IV SCH ×3 (03:48→17:39)
[2020-03-07] MEDS: MAGNESIUM 1 GM/100 ML IVPB 100 ML IV SCH (04:19)
[2020-03-07] MEDS: KCL 20 MEQ TAB (K-DUR) PO SCH (04:19)
[2020-03-07] MEDS: POTASSIUM CL 10MEQ/50ML IVPB 50 ML IV SCH (04:19)
--- NOTE | 2020-03-07 06:13 | Diagnostic Imaging Report ---
Indication: Respiratory failure Portable chest 1:52 AM ET tube projects over the trachea. NG tube enters the stomach. There is left thoracostomy tube. Right IJ Port-A-Cath tip projects over the SVC. There is a tiny right pneumothorax. There are diffuse alveolar infiltrates in the lungs. There is pneumomediastinum with extensive subcutaneous emphysema in the chest gagnon bilaterally and in the neck. IMPRESSION: Increasing subcutaneous emphysema. Small right pneumothorax appears be new since the previous day. The left pneumothorax is smaller. There continue be diffuse alveolar infiltrates in the lungs. Dictated by: Dictated on workstation # [id number]
--- NOTE | 2020-03-07 06:26 | Pulmonary Progress Note ---
Subjective Time Seen by a Provider: 06:24 Subjective/Events-last exam Pt is sedated on vent. Sepsis Event Evaluation Height, Weight, BMI Height: 5'10.00" Weight: 168lbs. 0.0oz. 76.221016dd; 20.76 BMI Method:Stated Exam Exam Vital Signs Date Time Temp Pulse Resp B/P (MAP) Pulse Ox O2 Delivery O2 Flow Rate FiO2 03/07/20 06:00 66 22 94/52 (66) 95 Mechanical Ventilator 70.00 03/07/20 05:00 68 24 91/55 (67) 96 Mechanical Ventilator 70.00 03/07/20 04:21 36.1 94 Mechanical Ventilator 70.00 03/07/20 04:00 61 20 98/54 (69) 91 Mechanical Ventilator 70.00 03/07/20 03:00 66 20 105/57 (73) 89 Mechanical Ventilator 70.00 03/07/20 02:17 92 Mechanical Ventilator 70.00 03/07/20 02:00 64 21 133/66 (88) 92 Mechanical Ventilator 60.00 03/07/20 01:00 73 03/07/20 01:00 70 21 140/67 (91) 92 Mechanical Ventilator 60.00 03/07/20 00:00 35.6 03/07/20 00:00 71 21 134/71 (92) 91 Mechanical Ventilator 60.00 03/06/20 23:00 51 10 94/50 (65) 92 Mechanical Ventilator 60.00 03/06/20 22:27 73 27 94 60 03/06/20 22:00 51 10 94/50 (65) 92 Mechanical Ventilator 60.00 03/06/20 21:10 Mechanical Ventilator 60.00 03/06/20 21:00 51 10 94/50 (65) 92 Mechanical Ventilator 65.00 03/06/20 20:45 98 Mechanical Ventilator 65.00 03/06/20 20:06 35.3 03/06/20 20:00 51 10 94/50 (65) 92 Mechanical Ventilator 65.00 03/06/20 20:00 91 Mechanical Ventilator 60 03/06/20 19:34 53 27 94 75 03/06/20 19:00 54 03/06/20 19:00 51 10 94/50 (65) 92 Mechanical Ventilator 65.00 03/06/20 18:22 53 96/50 03/06/20 18:00 51 10 94/50 (65) 92 Mechanical Ventilator 100.00 03/06/20 17:00 52 5 95/54 (68) 93 Mechanical Ventilator 100.00 03/06/20 16:00 56 18 93/51 (65) 94 Mechanical Ventilator 100.00 03/06/20 15:52 35.2 03/06/20 15:00 55 10 98/51 (67) 91 Mechanical Ventilator 100.00 03/06/20 14:45 55 27 94 75 03/06/20 14:00 59 11 100/51 (67) 94 Mechanical Ventilator 100.00 03/06/20 13:00 63 03/06/20 13:00 62 11 96/51 (66) 93 Mechanical Ventilator 100.00 03/06/20 12:00 80 16 140/92 (108) 94 Mechanical Ventilator 100.00 03/06/20 11:22 35.4 03/06/20 11:00 76 23 118/66 (83) 95 Mechanical Ventilator 100.00 03/06/20 10:34 65 24 95 80 03/06/20 10:00 56 27 127/73 (91) 96 Mechanical Ventilator 100.00 03/06/20 09:00 57 18 114/65 (81) 96 Mechanical Ventilator 100.00 03/06/20 08:00 63 23 111/64 (80) 95 Mechanical Ventilator 100.00 03/06/20 07:40 95 Mechanical Ventilator 80 03/06/20 07:18 36.1 03/06/20 07:00 68 19 101/59 (73) 91 Mechanical Ventilator 100.00 03/06/20 07:00 67 03/06/20 06:50 65 24 92 80 I & O 03/07/20 07:00 Intake Total 2930 ml Output Total 1050 ml Balance 1880 ml Height & Weight Height: 5'10.00" Weight: 168lbs. 0.0oz. 76.190745bw; 20.76 BMI Method:Stated General Appearance: No Apparent Distress, WD/WN, Chronically ill, Other (sedated) HEENT: PERRL/EOMI, Moist Mucous Membranes Neck: Normal Inspection, Supple Respiratory: Decreased Breath Sounds Cardiovascular: Regular Rate, Rhythm Capillary Refill: Less Than 3 Seconds Gastrointestinal: normal bowel sounds, non tender, soft Extremity: Normal Inspection, Non Tender, No Pedal Edema Neurologic/Psychiatric: No Motor/Sensory Deficits, Other (sedated on vent. ) Skin: Normal Color, Warm/Dry Results Lab Laboratory Tests 03/06/20 02:15 03/07/20 02:03 Assessment/Plan Assessment/Plan Acute hypoxic respiratory failure due to COVID19 Pt was intubated 03/01 -EICU managed pt through the night -DX with COVID 02/12 s/p remdesivir s/p convalescent plasma decadron MAT protocol Lovenox Worsening left PTX -I readjusted Left chest tube, removing and reapplying dressing. I also resutured chest tube in place. I also placed a left Thoravent. -Post CXR shows improvement in left PTX -Will Repeat CXR at 800am PNA -Repeat pierce cultures - Zosyn - -Start Diflucan secondary to vaginal yeast infection Debility -Consult PT/OT -Advance diet as tolerated Coag negative staph bacteremia probable contamination history of colon cancer s/p resection no acute management needs DVT ppx: Lovenox KRISS DA SILVA DO Mar 07, 2020 06:26
[2020-03-07] MEDS: PIPERACILLIN/TAZOBACTAM (BULK) 4.5 GM in NS (IVPB) 100 ML IV SCH ×3 (06:55→23:11)
[2020-03-07] MEDS: RT-ALBUTEROL INHALER HFA (VENTOLIN HFA) 18 GM IH SCH ×5 (07:51→22:16)
[2020-03-07] MEDS: IPRATROPIUM INHALER (ATROVENT) 12.9 GM INH SCH ×5 (07:52→22:16)
[2020-03-07] MEDS: ENOXAPARIN 60 MG/0.6 ML (LOVENOX) SYR SC SCH ×2 (08:20→20:01)
[2020-03-07] MEDS: FAMOTIDINE 20MG/2ML IV (PEPCID) IV SCH ×2 (08:20→20:01)
[2020-03-07] MEDS: FLUCONAZOLE 200 MG/100 ML 50 ML, EMPTY IV BAG (PVC) 1 EA IV SCH ×2 (08:20)
[2020-03-07] MEDS: PROPOFOL DRIP (ICU) 100 ML IV SCH ×2 (09:16→20:01)
--- NOTE | 2020-03-07 09:23 | Physical Therapy Progress Note ---
Therapy Progress Note PROM bilateral extremities in supine. Restraints in place bilateral UE. SHANTELL BURGESS PT Mar 07, 2020 09:23
--- NOTE | 2020-03-07 13:40 | NUR ---
Note pt currently receiving TF of Pulmocare via 210ml bolus feeds q4h, with 30ml free water flushes before/after each bolus. Recommend continue to increase TF by 30ml q8h toward goal rate of 240ml bolus feeds q4h. Will continue to follow and reassess as pt needs, intake, and status change. Erin Cisneros, MS RD LD [phone] cell
[2020-03-07] MEDS: fentaNYL DRIP PRE-MIX 250 ML IV SCH ×2 (14:43→22:58)
[2020-03-08] VITALS (56 sets, daily range): BP systolic 83–158; BP diastolic 47–83
[2020-03-08] MEDS: inSUlin ASPART (NovoLOG) 1 UNIT/0.01 ML (CHARGE PER UNIT) SQ SCH ×4 (00:39→18:00)
[2020-03-08] MEDS: IPRATROPIUM INHALER (ATROVENT) 12.9 GM INH SCH ×6 (02:23→22:22)
[2020-03-08] MEDS: RT-ALBUTEROL INHALER HFA (VENTOLIN HFA) 18 GM IH SCH ×6 (02:23→22:22)
[2020-03-08] MEDS: KCL 20 MEQ TAB (K-DUR) PO SCH (02:30)
[2020-03-08] MEDS: MAGNESIUM 1 GM/100 ML IVPB 100 ML IV SCH (02:30)
[2020-03-08] MEDS: POTASSIUM CL 10MEQ/50ML IVPB 50 ML IV SCH (02:30)
[2020-03-08 04:17] LABS: ABG BASE EXCESS 6.3 MMOL/L (-2.5-2.5); ABG OXYGEN SATURATION 99 % (94-100); ABG PCO2 53 MMHG (35-45); ABG PH 7.39 (7.37-7.43); ABG PO2 112 MMHG (79-93); ABG TCO2 33.1 MMOL/L (21.0-31.0)
[2020-03-08 04:18] LABS: ALLENS TEST YES-POS; BASOPHILS % (AUTO) 0 % (0-10); HEMOGLOBIN 8.6 g/dL (11.5-16.0); INSPIRED O2 50%; VENTILATOR YES
[2020-03-08 04:19] LABS: EOSINOPHILS % (AUTO) 1 % (0-10); HEMATOCRIT 28 % (35-52); LYMPHOCYTES # (AUTO) 0.3 10^3/uL (1.0-4.0); LYMPHOCYTES % (AUTO) 5 % (12-44); MEAN CORPUSCULAR HEMOGLOBIN 30 pg (25-34); MEAN CORPUSCULAR HGB CONC 31 g/dL (32-36); MEAN CORPUSCULAR VOLUME 95 fL (80-99); MEAN PLATELET VOLUME 10.8 fL (9.0-12.2); MONOCYTES # (AUTO) 0.3 10^3/uL (0.0-1.0); MONOCYTES % (AUTO) 5 % (0-12); NEUTROPHILS # (AUTO) 5.5 10^3/uL (1.8-7.8); NEUTROPHILS % (AUTO) 86 % (42-75); PLATELET COUNT 139 10^3/uL (130-400); WHITE BLOOD COUNT 6.5 10^3/uL (4.3-11.0)
[2020-03-08 04:25] LABS: CHLORIDE 105 MMOL/L (98-107); POTASSIUM 4.8 MMOL/L (3.6-5.0); SODIUM 140 MMOL/L (135-145)
[2020-03-08 04:26] LABS: CALCIUM 8.3 MG/DL (8.5-10.1)
[2020-03-08 04:27] LABS: GLUCOSE 94 MG/DL (70-105)
[2020-03-08 04:28] LABS: CARBON DIOXIDE 29 MMOL/L (21-32)
[2020-03-08 04:30] LABS: PHOSPHORUS 2.6 MG/DL (2.3-4.7)
[2020-03-08 04:31] LABS: BUN/CREATININE RATIO 38; GFR ESTIMATED > 60
[2020-03-08 04:33] LABS: MAGNESIUM 1.9 MG/DL (1.6-2.4)
--- NOTE | 2020-03-08 05:34 | Pulmonary Progress Note ---
Subjective Time Seen by a Provider: 05:33 Subjective/Events-last exam Sedated on vent. Sepsis Event Evaluation Height, Weight, BMI Height: 5'10.00" Weight: 168lbs. 0.0oz. 76.573466ls; 20.76 BMI Method:Stated Exam Exam Vital Signs Date Time Temp Pulse Resp B/P (MAP) Pulse Ox O2 Delivery O2 Flow Rate FiO2 03/08/20 05:00 69 23 128/63 (84) 97 Mechanical Ventilator 50.00 03/08/20 04:00 71 17 146/73 (97) 95 Mechanical Ventilator 50.00 03/08/20 03:00 68 24 120/60 (80) 95 Mechanical Ventilator 50.00 03/08/20 02:23 64 24 91 70 03/08/20 02:00 53 23 108/55 (72) 94 Mechanical Ventilator 50.00 03/08/20 01:00 52 03/08/20 01:00 52 24 89/55 (66) 94 Mechanical Ventilator 50.00 03/08/20 00:00 35.7 Mechanical Ventilator 50.00 03/08/20 00:00 51 24 91/55 (67) 94 Mechanical Ventilator 50.00 03/07/20 23:00 53 23 90/57 (68) 94 Mechanical Ventilator 60.00 03/07/20 22:17 53 24 96 50 03/07/20 22:00 51 24 90/57 (68) 96 Mechanical Ventilator 60.00 03/07/20 21:00 51 24 95/58 (70) 94 Mechanical Ventilator 60.00 03/07/20 20:13 Mechanical Ventilator 60.00 03/07/20 20:01 51 103/55 03/07/20 20:00 51 23 100/59 (73) 95 Mechanical Ventilator 60.00 03/07/20 20:00 96 Mechanical Ventilator 60 03/07/20 19:56 35.3 51 24 103/55 (71) 95 Mechanical Ventilator 70.00 03/07/20 19:00 55 24 100/57 (71) 94 Mechanical Ventilator 70.00 03/07/20 19:00 55 03/07/20 18:46 52 24 94 70 03/07/20 18:00 53 19 92/57 (78) 95 Mechanical Ventilator 70.00 03/07/20 17:45 53 23 94/58 (79) 96 03/07/20 17:30 55 13 95/52 (75) 95 03/07/20 17:15 56 23 92/58 (75) 95 03/07/20 17:00 94/55 (74) Mechanical Ventilator 70.00 03/07/20 16:45 58 14 93/55 (69) 95 18 16:30 58 22 93/55 (75) 95 03/07/20 16:28 35.8 03/07/20 16:15 55 18 94/53 (74) 94 03/07/20 16:00 56 12 93/59 (79) 94 Mechanical Ventilator 70.00 03/07/20 15:45 92/57 (77) 03/07/20 15:30 60 10 96/55 (76) 94 03/07/20 15:15 60 10 92/57 (77) 95 03/07/20 15:00 58 16 98/50 (70) 94 Mechanical Ventilator 03/07/20 14:45 60 18 96/50 (80) 95 03/07/20 14:30 60 26 99/50 (71) 94 03/07/20 14:26 66 24 94 70 03/07/20 14:15 61 9 93/56 (79) 94 03/07/20 14:00 57 14 94/58 (78) 95 Mechanical Ventilator 70.00 03/07/20 13:45 60 13 96/57 (77) 94 03/07/20 13:30 60 16 96/50 (73) 94 03/07/20 13:15 60 27 99/57 (71) 94 03/07/20 13:00 63 03/07/20 13:00 61 36 100/54 (68) 93 Mechanical Ventilator 70.00 03/07/20 12:45 96/54 (70) 03/07/20 12:34 36.1 03/07/20 12:30 61 26 97/49 (68) 94 03/07/20 12:15 62 12 98/51 (81) 94 03/07/20 12:00 64 12 97/53 (82) 93 Mechanical Ventilator 70.00 03/07/20 11:45 68 18 107/58 (79) 93 03/07/20 11:30 67 25 115/56 (73) 93 03/07/20 11:21 64 24 93 70 03/07/20 11:15 66 18 109/60 (88) 93 03/07/20 11:00 64 24 104/58 (80) 95 Mechanical Ventilator 70.00 03/07/20 10:45 64 30 105/51 (74) 95 03/07/20 10:30 63 22 102/51 (71) 94 03/07/20 10:15 63 32 103/53 (71) 96 03/07/20 10:00 65 31 103/52 (75) 95 Mechanical Ventilator 70.00 03/07/20 09:45 69 0 100/54 (73) 94 03/07/20 09:30 67 24 91/53 (68) 95 03/07/20 09:16 65 91/56 03/07/20 09:15 91/56 (70) 03/07/20 09:00 65 19 97/53 (69) 94 Mechanical Ventilator 70.00 03/07/20 08:45 94/49 (67) 03/07/20 08:30 65 24 96/58 (69) 95 03/07/20 08:18 95 Mechanical Ventilator 70 03/07/20 08:16 36.2 03/07/20 08:15 66 25 100/53 (70) 94 03/07/20 08:00 65 15 95/51 (66) 94 Mechanical Ventilator 70.00 03/07/20 07:52 66 26 95 70 03/07/20 07:45 67 25 92/53 (66) 95 03/07/20 07:30 91/53 (68) 03/07/20 07:15 67 10 91/50 (72) 94 03/07/20 07:00 68 03/07/20 07:00 64 9 97/54 (72) 95 Mechanical Ventilator 70.00 03/07/20 06:45 69 27 87/50 (70) 94 03/07/20 06:30 67 22 99/54 (66) 96 03/07/20 06:15 67 17 94/52 (70) 95 03/07/20 06:00 66 22 94/52 (66) 95 Mechanical Ventilator 70.00 I & O 03/08/20 07:00 Intake Total 2600 ml Output Total 810 ml Balance 1790 ml Height & Weight Height: 5'10.00" Weight: 168lbs. 0.0oz. 76.109727bt; 20.76 BMI Method:Stated General Appearance: No Apparent Distress, WD/WN, Chronically ill, Other (sedated) HEENT: PERRL/EOMI, Moist Mucous Membranes Neck: Normal Inspection, Supple Respiratory: Decreased Breath Sounds Cardiovascular: Regular Rate, Rhythm Capillary Refill: Less Than 3 Seconds Gastrointestinal: normal bowel sounds, non tender, soft Extremity: Normal Inspection, Non Tender, No Pedal Edema Neurologic/Psychiatric: No Motor/Sensory Deficits, Other (sedated on vent. ) Skin: Normal Color, Warm/Dry Results Lab Laboratory Tests 03/07/20 02:03 03/08/20 04:00 Assessment/Plan Assessment/Plan Acute hypoxic respiratory failure due to COVID19 Pt was intubated 03/01 -EICU managed pt through the night -DX with COVID 02/12 s/p remdesivir s/p convalescent plasma decadron MAT protocol Lovenox Worsening left PTX -Worsening sub Q air. -Will check CT of chest to better evaluate PTX PNA -Repeat pierce cultures - Zosyn - -Start Diflucan secondary to vaginal yeast infection Debility -Consult PT/OT -Advance diet as tolerated Coag negative staph bacteremia probable contamination history of colon cancer s/p resection no acute management needs DVT ppx: Lovenox KRISS DA SILVA DO Mar 08, 2020 05:34
--- NOTE | 2020-03-08 05:38 | Diagnostic Imaging Report ---
EXAMINATION: Portable erect AP chest at 2:04 AM INDICATION: Dyspnea, COVID-19 The heart is stable in size when compared to the prior exam of 03/07/2019. The small apical pneumothorax on the left seen previously is again evident and does not seem to have changed significantly. The small caliber chest tube on the left seems similar in position. The trace pneumothorax on the right noted on the prior exam is difficult to appreciate on this study. There continue to be alveolar/interstitial pulmonary infiltrates bilaterally as well as extensive subcutaneous emphysema. These findings are similar to the prior exam. The supportive tubes and lines are unchanged in position. IMPRESSION: The overall appearance of the chest has not changed adversely since the prior exam. The trace pneumothorax on the right, however, is difficult to appreciate. A follow-up exam would be recommended for continued evaluation. Dictated by: Dictated on workstation # [id number]
[2020-03-08] MEDS: LACTATED RINGERS 1,000 ML IV SCH (06:20)
[2020-03-08] MEDS: PIPERACILLIN/TAZOBACTAM (BULK) 4.5 GM in NS (IVPB) 100 ML IV SCH ×3 (06:20→21:16)
[2020-03-08] MEDS: PROPOFOL DRIP (ICU) 100 ML IV SCH ×2 (07:42→18:48)
[2020-03-08] MEDS: NOREPINEPHRINE 4 MG/250 ML 250 ML IV SCH ×2 (07:53→17:11)
[2020-03-08] MEDS: fentaNYL DRIP PRE-MIX 250 ML IV SCH ×2 (08:44→18:48)
--- NOTE | 2020-03-08 08:44 | NUR ---
THIS RN MADE NO CHANGES TO FENTANYL DRIP; INFUSING AT 25ML/HOUR PRIOR TO NEW BAG HUNG.
[2020-03-08] MEDS: FAMOTIDINE 20MG/2ML IV (PEPCID) IV SCH ×2 (08:59→21:15)
[2020-03-08] MEDS: ENOXAPARIN 60 MG/0.6 ML (LOVENOX) SYR SC SCH ×3 (08:59→21:16)
[2020-03-08] MEDS: FLUCONAZOLE 200 MG/100 ML 50 ML, EMPTY IV BAG (PVC) 1 EA IV SCH ×2 (08:59)
[2020-03-08] MEDS ORDERED: NS 100 ML (IVPB) BAG IV ONE (09:30)
[2020-03-08] MEDS ORDERED: IOHEXOL 350 MG/ML 100 ML (OMNIPAQUE 350) VIAL IV ONE (09:30)
[2020-03-08] MEDS ORDERED: HOLD METFORMIN - RECEIVED CONTRAST 20 ML VIAL IV SCH (09:30)
--- NOTE | 2020-03-08 09:49 | Diagnostic Imaging Report ---
PROCEDURE: CT angiography of the chest with contrast. TECHNIQUE: Multiple contiguous axial images were obtained through the chest after uneventful bolus administration of intravenous contrast. 3D reconstructed CTA MIP acquisitions were also performed. Auto Exposure Controls were utilized during the CT exam to meet ALARA standards for radiation dose reduction. INDICATION: Covid patient with respiratory distress CORRELATION with multiple recent serial plain films as well as images obtained during CT fusion PET performed 09/18/2018. FINDINGS: There is a left-sided chest tube in good position within the anterior pleural space. There is a small residual left pneumothorax anteriorly of less than 10%. There is extensive pneumomediastinum as well as extensive subcutaneous emphysema. There is no air within the pericardial sac. Gas dissects into the abdominal wall and peritoneal sac of the upper abdomen. No evidence for tension. There are extensive bilateral consolidative and ground-glassed infiltrates involving all 5 lobes. This patient does have minute left and small right pleural effusions without CT evidence for complexity or loculation. The heart size and its configuration unremarkable. No intracardiac chamber mass or thrombus. There is aortic and coronary arterial atherosclerotic vascular calcifications without thoracic aneurysm. No intraluminal pulmonary arterial filling defect or thrombus found. No evidence for PE. IMPRESSION: 1. Left chest tube in good position. Small residual left pneumothorax but substantial pneumomediastinum and subcutaneous emphysema and extensive 5 lobed consolidative and ground-glassed infiltrates. Small amounts of nonloculated pleural fluid noted. No appreciable PE or acute aortic pathology. 2. Not mentioned above, multinodular heterogeneous thyromegaly and an ET tube in good position. Dictated by: Dictated on workstation # [id number]
--- NOTE | 2020-03-08 21:19 | NUR ---
THIS RN NOTIFIED TELE-ICU DR. PIERRE OF FIXED PUPIL TO LEFT EYE. RIGHT PUPIL REACTIVE. NEW ORDER RECEIVED FOR STAT CT OF HEAD WITHOUT CONTRAST. Addendum: 03/09/20 at 0156 by DAVID AQUINO RN THIS RN NOTIFIED TELE-ICU DR. PIRERE OF FIXED PUPIL TO LEFT EYE. RIGHT PUPIL REACTIVE. NEW ORDER RECEIVED FOR STAT CT OF HEAD WITHOUT CONTRAST AND TO HOLD 2100 DOSE OF LOVENOX.
--- NOTE | 2020-03-08 22:11 | Diagnostic Imaging Report ---
PROCEDURE: CT head without contrast. TECHNIQUE: Multiple contiguous axial images were obtained through the brain without the use of intravenous contrast. Auto Exposure Controls were utilized during the CT exam to meet ALARA standards for radiation dose reduction. INDICATION: Fixed pupil on the left. Covid positive. FINDINGS: The ventricles and sulci are within normal limits. There is no hydrocephalus. There is no midline shift. There is no mass, hemorrhage or extra-axial fluid collection. Sinuses are clear. There is fluid in the mastoid air cells, bilaterally. IMPRESSION: 1. No acute intracranial abnormality. 2. Nonspecific fluid in the mastoid air cells, bilaterally. Dictated by: Dictated on workstation # [id number]
--- NOTE | 2020-03-08 22:44 | NUR ---
THIS RN NOTIFIED TELE-ICU DR. PIERRE OF STAT CT OF HEAD RESULTS. NO NEW ORDERS RECEIVED AT THIS TIME.
[2020-03-09] VITALS (25 sets, daily range): BP systolic 79–155; BP diastolic 46–84
[2020-03-09 02:25] LABS: ABG BASE EXCESS 6.9 MMOL/L (-2.5-2.5); ABG OXYGEN SATURATION 96 % (94-100); ABG PCO2 53 MMHG (35-45); ABG PO2 79 MMHG (79-93); ABG TCO2 33.5 MMOL/L (21.0-31.0)
[2020-03-09 02:27] LABS: ALLENS TEST POSITIVE; INSPIRED O2 60; PATIENT TEMP 36.4; VENTILATOR YES
[2020-03-09 02:28] LABS: BASOPHILS % (AUTO) 0 % (0-10); EOSINOPHILS # (AUTO) 0.1 10^3/uL (0.0-0.3); EOSINOPHILS % (AUTO) 2 % (0-10); HEMATOCRIT 28 % (35-52); HEMOGLOBIN 8.8 g/dL (11.5-16.0); LYMPHOCYTES # (AUTO) 0.4 10^3/uL (1.0-4.0); LYMPHOCYTES % (AUTO) 5 % (12-44); MEAN CORPUSCULAR HEMOGLOBIN 30 pg (25-34); MEAN CORPUSCULAR HGB CONC 32 g/dL (32-36); MEAN CORPUSCULAR VOLUME 95 fL (80-99); MEAN PLATELET VOLUME 10.5 fL (9.0-12.2); MONOCYTES # (AUTO) 0.4 10^3/uL (0.0-1.0); MONOCYTES % (AUTO) 5 % (0-12); NEUTROPHILS # (AUTO) 6.6 10^3/uL (1.8-7.8); NEUTROPHILS % (AUTO) 83 % (42-75); PLATELET COUNT 164 10^3/uL (130-400); WHITE BLOOD COUNT 7.9 10^3/uL (4.3-11.0)
[2020-03-09 02:39] LABS: CHLORIDE 102 MMOL/L (98-107); POTASSIUM 4.6 MMOL/L (3.6-5.0); SODIUM 136 MMOL/L (135-145)
[2020-03-09 02:40] LABS: CALCIUM 8.2 MG/DL (8.5-10.1)
[2020-03-09 02:41] LABS: GLUCOSE 109 MG/DL (70-105); TRIGLYCERIDES 105 MG/DL (<150)
[2020-03-09 02:42] LABS: CARBON DIOXIDE 25 MMOL/L (21-32)
[2020-03-09 02:44] LABS: CREATININE SERUM 0.54 MG/DL (0.60-1.30); GFR ESTIMATED > 60; PHOSPHORUS 2.4 MG/DL (2.3-4.7)
[2020-03-09 02:46] LABS: BUN/CREATININE RATIO 33
[2020-03-09 02:47] LABS: MAGNESIUM 1.8 MG/DL (1.6-2.4)
[2020-03-09] MEDS: IPRATROPIUM INHALER (ATROVENT) 12.9 GM INH SCH ×2 (02:52→07:52)
[2020-03-09] MEDS: RT-ALBUTEROL INHALER HFA (VENTOLIN HFA) 18 GM IH SCH ×2 (02:52→07:52)
[2020-03-09] MEDS: PROPOFOL DRIP (ICU) 100 ML IV SCH ×2 (03:20→03:55)
[2020-03-09] MEDS: fentaNYL DRIP PRE-MIX 250 ML IV SCH ×2 (03:20→12:52)
[2020-03-09] MEDS: MAGNESIUM 1 GM/100 ML IVPB 100 ML IV SCH (03:26)
[2020-03-09] MEDS: POTASSIUM CL 10MEQ/50ML IVPB 50 ML IV SCH (03:26)
[2020-03-09] MEDS: KCL 20 MEQ TAB (K-DUR) PO SCH (03:26)
[2020-03-09] MEDS: LACTATED RINGERS 1,000 ML IV SCH (04:15)
--- NOTE | 2020-03-09 05:14 | Pulmonary Progress Note ---
Subjective Time Seen by a Provider: 05:09 Subjective/Events-last exam Pt is sedated on vent. Sepsis Event Evaluation Height, Weight, BMI Height: 5'10.00" Weight: 168lbs. 0.0oz. 76.316875ic; 20.76 BMI Method:Stated Exam Exam Vital Signs Date Time Temp Pulse Resp B/P (MAP) Pulse Ox O2 Delivery O2 Flow Rate FiO2 03/09/20 03:20 96 141/68 03/09/20 03:17 36.5 03/09/20 02:52 96 26 95 55 03/09/20 01:00 98 03/09/20 00:35 Mechanical Ventilator 60.00 03/09/20 00:09 36.5 03/08/20 23:00 77 25 86/51 (63) 94 Mechanical Ventilator 65.00 03/08/20 22:22 77 26 92 65 03/08/20 22:00 89 25 132/75 (94) 93 Mechanical Ventilator 65.00 03/08/20 21:00 81 22 106/62 (77) 95 Mechanical Ventilator 65.00 03/08/20 21:00 95 Mechanical Ventilator 65 03/08/20 20:00 88 13 111/70 (84) 95 Mechanical Ventilator 65.00 03/08/20 20:00 36.6 Mechanical Ventilator 65.00 03/08/20 19:00 98 03/08/20 19:00 98 15 108/62 (77) 94 Mechanical Ventilator 65.00 03/08/20 18:48 99 03/08/20 18:12 93 29 94 65 03/08/20 18:00 84 12 112/65 (83) 93 Mechanical Ventilator 65.00 03/08/20 17:45 84 25 114/63 (80) 94 03/08/20 17:30 87 14 134/74 (99) 93 03/08/20 17:15 93 15 141/75 (109) 94 03/08/20 17:00 96 15 126/83 (106) 93 Mechanical Ventilator 65.00 03/08/20 16:45 92 15 134/74 (97) 94 03/08/20 16:30 87 14 125/67 (92) 94 03/08/20 16:15 85 12 130/71 (95) 94 03/08/20 16:00 92 14 127/73 (97) 94 Mechanical Ventilator 65.00 03/08/20 15:59 93 27 93 65 03/08/20 15:51 37.2 03/08/20 15:45 88 11 130/67 (94) 94 03/08/20 15:30 93 15 139/80 (100) 94 03/08/20 15:15 96 14 133/74 (101) 94 03/08/20 15:00 96 15 144/79 (102) 94 Mechanical Ventilator 65.00 03/08/20 14:45 92 14 134/73 (104) 95 03/08/20 14:30 80 27 119/66 (90) 97 03/08/20 14:15 62 22 88/49 (62) 94 03/08/20 14:00 60 22 87/52 (61) 95 Mechanical Ventilator 65.00 03/08/20 13:45 61 20 83/48 (60) 94 03/08/20 13:37 61 20 88/47 (58) 94 03/08/20 13:30 62 23 94 03/08/20 13:15 64 26 92 03/08/20 12:49 91 03/08/20 12:30 66 26 90 Mechanical Ventilator 65.00 03/08/20 11:30 86 147/70 (98) 92 Mechanical Ventilator 65.00 03/08/20 11:30 37.0 03/08/20 11:15 82 148/72 (106) 92 Mechanical Ventilator 65.00 03/08/20 11:00 96 11 158/78 (110) 90 Mechanical Ventilator 65.00 03/08/20 10:45 86 139/72 (96) 92 03/08/20 10:30 81 135/66 (102) 92 03/08/20 10:15 85 19 142/69 (116) 93 03/08/20 10:00 90 17 136/72 (97) 95 Mechanical Ventilator 65.00 03/08/20 09:45 86 16 126/66 (91) 100 03/08/20 09:00 88 16 124/72 (97) 94 Mechanical Ventilator 65.00 03/08/20 08:45 97 21 151/75 (100) 98 03/08/20 08:30 82 16 137/70 (100) 100 03/08/20 08:15 73 26 122/61 (85) 99 03/08/20 08:00 66 25 111/64 (84) 99 Mechanical Ventilator 65.00 03/08/20 08:00 95 Mechanical Ventilator 65 03/08/20 07:52 36.8 03/08/20 07:45 67 26 109/57 (80) 98 03/08/20 07:42 65 105/59 03/08/20 07:30 66 24 105/59 (82) 97 03/08/20 07:20 62 24 98 65 03/08/20 07:15 66 23 107/58 (78) 98 03/08/20 07:00 66 03/08/20 07:00 68 22 98/59 (73) 98 Mechanical Ventilator 65.00 03/08/20 06:45 68 24 108/62 (79) 97 03/08/20 06:42 Mechanical Ventilator 65.00 03/08/20 06:30 66 24 103/62 (80) 96 03/08/20 06:15 66 23 92/57 (68) 97 03/08/20 06:00 66 23 103/62 (76) 97 Mechanical Ventilator 50.00 I & O 03/09/20 06:59 Intake Total 1530 ml Output Total 1560 ml Balance -30 ml Height & Weight Height: 5'10.00" Weight: 168lbs. 0.0oz. 76.282828mz; 20.76 BMI Method:Stated General Appearance: WD/WN, Chronically ill, Other (sedated) HEENT: PERRL/EOMI, Moist Mucous Membranes Neck: Normal Inspection, Supple Respiratory: Decreased Breath Sounds Cardiovascular: Regular Rate, Rhythm Capillary Refill: Less Than 3 Seconds Gastrointestinal: normal bowel sounds, non tender, soft Extremity: Normal Inspection, Non Tender, No Pedal Edema Neurologic/Psychiatric: No Motor/Sensory Deficits, Other (sedated on vent. ) Skin: Normal Color, Warm/Dry Results Lab Laboratory Tests 03/08/20 04:00 03/09/20 02:10 Assessment/Plan Assessment/Plan Acute hypoxic respiratory failure due to COVID19 Pt was intubated 03/01 -EICU managed pt through the night -DX with COVID 02/12 s/p remdesivir s/p convalescent plasma decadron MAT protocol Lovenox Worsening left PTX -CT of chest- revewed PNA -Repeat pierce cultures - Zosyn - -Start Diflucan secondary to vaginal yeast infection Debility -Consult PT/OT -Advance diet as tolerated Coag negative staph bacteremia probable contamination history of colon cancer s/p resection no acute management needs DVT ppx: Thomas I called and talked with son. He wants her to be a DNR. I did discuss all options with son including full code to [facility] [employer]. He wants to proceed with DNR status at this time. KRISS DA SILVA DO Mar 09, 2020 05:14
[2020-03-09] MEDS: NOREPINEPHRINE 4 MG/250 ML 250 ML IV SCH (06:36)
[2020-03-09] MEDS: inSUlin ASPART (NovoLOG) 1 UNIT/0.01 ML (CHARGE PER UNIT) SQ SCH ×2 (06:36)
--- NOTE | 2020-03-09 07:26 | Diagnostic Imaging Report ---
EXAM: Portable erect AP chest at 2:41 AM INDICATION: Hypoxia When compared to the prior exam of 03/08/2020, the small caliber chest tube on the left appears to have been retracted. The tip of the catheter still remains within the thoracic cavity and the apical pneumothorax on the left seen previously is essentially no different. The overall appearance of the chest itself has not changed significantly otherwise. There are still diffuse alveolar/interstitial pulmonary infiltrates involving both lungs, primarily the lung bases. There is no clear evidence for a pneumothorax on the right. The mediastinum is not widened. The diffuse subcutaneous emphysema seen previously is again evident. The other supportive tubes and lines appear to be similar in position to the prior exam. IMPRESSION: 1. In the interval since the prior exam, the small caliber chest tube on the left has been retracted. The tip is still within the thoracic cavity and the apical pneumothorax on the left is essentially no different. Even so, clinical follow-up regarding the tube is recommended. 2. The overall appearance of the chest has not changed significantly otherwise. Dictated by: Dictated on workstation # [id number]
--- NOTE | 2020-03-09 07:27 | NUR ---
Dr. Huizar would like Lovenox held for 03/09/20 d/t bleeding at [facility] [place]. He would also like to continue Zosyn so patient has received a total of 7 days of Zosyn.
[2020-03-09] MEDS: FAMOTIDINE 20MG/2ML IV (PEPCID) IV SCH (08:21)
[2020-03-09] MEDS: FLUCONAZOLE 200 MG/100 ML 50 ML, EMPTY IV BAG (PVC) 1 EA IV SCH ×2 (08:22)
[2020-03-09] MEDS ORDERED: PIPERACILLIN/TAZOBACTAM (BULK) 4.5 GM in NS (IVPB) 100 ML IV SCH (08:30)
--- NOTE | 2020-03-09 09:40 | NUR ---
Report given to this RN this morning, stating that Dr. Huizar talked to pt's son about pt condition and possible comfort care at a point in time if pt does not improve. At 0900, this RN talked with pt's sister, melida, and updated on pt worsening condition. Pt sister stated that the son didn't quite understand everything going on with the pt at this time. After this RN explained pt condition, sister stated that she would call pt son and they would speak about what they believe pt's wishes would be. I explained to the sister that the son would need to be the one to call us if they chose to withdraw care. At 0940, pt son called this RN to explain that he and Melida had talked, and that they don't believe his mother would want to remain on life support at this time given her worsening condition, and they would like to go ahead with comfort care. He also explained that since he had been there with his dad when he passed, he did not think he could do it with his mom. This RN explained that we would keep him updated on all changes and changes in pt's condition after comfort care was initiated.
[2020-03-09] MEDS ORDERED: ARTIFICAL TEARS 0.4 ML UNIT DOSE (REFRESH PLUS) OU PRN (10:30)
[2020-03-09] MEDS ORDERED: morphine INJ 4 MG/ML 1 ML (VIAL/SYRINGE) IV PRN (10:30)
[2020-03-09] MEDS ORDERED: BISACODYL 10 MG SUPP (DULCOLAX) PR PRN (10:30)
[2020-03-09] MEDS ORDERED: SALIVA STIMULANT MOUTH SPRAY (BIOTENE) 1.5 OZ MM PRN (10:30)
[2020-03-09] MEDS ORDERED: ACETAMINOPHEN 650 MG SUPP (TYLENOL) PR PRN (10:30)
[2020-03-09] MEDS ORDERED: PROMETHAZINE INJ 25 MG/ML (PHENERGAN) AMP IVP PRN (10:30)
[2020-03-09] MEDS ORDERED: SCOPOLAMINE 1.5 MG (TRANSDERM-SCOP) PATCH TOP SCH (10:30)
[2020-03-09] MEDS: LORazepam INJ 2 MG/ML (ATIVAN) VIAL IV PRN ×2 (10:59→13:05)
--- NOTE | 2020-03-09 11:26 | NUR ---
Pt extubated to room air at this time per RT. Pt pretreated with Ativan, and a bolus of pain meds, 50mcg, given at this time.
--- NOTE | 2020-03-09 15:23 | NUR ---
[facility] here to picker pt body. All belongings sent with body to home. Pt's son called to notify him that pt's body was being transported at this time and all belongings were with her. It was noted to son that two of her cd cases in her belongings did not have CD's in them when they were brought to the hospital. Son verified that was possible as he "just grabbed some I thought she would like".
== END 2020-03-09 15:23 | disposition expired | DRG 207 ==
LOC: EDUNIT# 13:36 → ER 13:38 → 4TH 15:36 → EDLOC 15:36 → ICU 02-23 10:57 → CSD 02-28 15:05 → ICU 03-01 12:24
PROVIDERS: ADMIT Family Medicine; ATTEND Internal Medicine
PROC: XW13325 Transfusion of Convalescent Plasma (Nonautologous) into Peripheral Vein, Percutaneous Approach, New Technology Group 5 (ICD-10-PCS; 2020-02-20)
PROC: 5A09557 Assistance with Respiratory Ventilation, Greater than 96 Consecutive Hours, Continuous Positive Airway Pressure (ICD-10-PCS; 2020-02-20)
PROC: XW033E5 Introduction of Remdesivir Anti-infective into Peripheral Vein, Percutaneous Approach, New Technology Group 5 (ICD-10-PCS; 2020-02-21)
PROC: 5A1955Z Respiratory Ventilation, Greater than 96 Consecutive Hours (ICD-10-PCS; principal; 2020-03-01)
PROC: 0BH17EZ Insertion of Endotracheal Airway into Trachea, Via Natural or Artificial Opening (ICD-10-PCS; 2020-03-01)
PROC: 0W9B30Z Drainage of Left Pleural Cavity with Drainage Device, Percutaneous Approach (ICD-10-PCS; 2020-03-03)
DX: U07.1 COVID-19 (principal); J12.89 Other viral pneumonia; J80 Acute respiratory distress syndrome; J93.9 Pneumothorax, unspecified; J98.2 Interstitial emphysema; Z66 Do not resuscitate; Z51.5 Encounter for palliative care; R74.01 Elevation of levels of liver transaminase levels; Z87.891 Personal history of nicotine dependence; Z85.038 Personal history of other malignant neoplasm of large intestine; Z85.528 Personal history of other malignant neoplasm of kidney; Z73.0 Burn-out
CPT/HCPCS: 36415; 70450; 71045; 71275; 80048; 80053; 81000; 82805; 82962; 83605; 83735; 83880; 84100; 84145; 84478; 84484; 85007; 85025; 85027; 85379; 85610; 85730; 86141; 86900; 86901; 87040; 87077; 87081; 87186; 93005; 93041; 94002; 94003; 94640; 94660; 94760; 94799; 96361; 96374